=== PATIENT | male | born 1940 | race Caucasian/White ===

== ENCOUNTER 2024-11-15 11:58 | Inpatient (IN) | payer MEDICARE, SELFPAY ==
[2024-11-15] VITALS (7 sets, daily range): BP systolic 120–148; BP diastolic 67–88; PULSE 56–85; RESP 16–18; TEMP 36.7–39.1; O2SAT 96–100; BMI 27.3
--- NOTE | 2024-11-15 12:14 | EDS_ITS ---
HPI <JOLIE Ibarra - Last Filed: 11/15/24 14:51> History of Present Illness Chief Complaint: Weakness Narrative Narrative: 84-year-old male with past medical history of hypertension presents with generalized weakness. He lives alone in an apartment. Normally he has a home health aide but she has been gone for several days. He states on November 12 [address] to do errands and after getting out of his car he was standing with his cane and was too weak to walk and fell scraping his left elbow. No head injury. He called EMS for lift assist into his apartment. He has not been able to get around since then. He had chicken soup yesterday morning and nothing since then. He states normally he walks with a cane and holds onto things. He denies fever, chills, chest pain, shortness of breath, cough, vomiting or diarrhea. He had ordered a life alert type device and states he put it together and used it to call EMS today to bring him in. PFSH <JOLIE Ibarra - Last Filed: 11/15/24 14:51> [facility] Medical History (Updated 11/15/24 @ 14:[address] Shannan Patterson MD) HTN (hypertension) Allergy/AdvReac Type Severity Reaction Status Date / Time Opioids - Morphine Analogues Allergy Intermediate Other Verified 11/15/24 12:14 Surgical History (Updated 11/15/24 @ 12:16 by Rosemarie James) History of tonsillectomy H/O bilateral hip replacements Social History Smoking Status: Former smoker ROS <JOLIE Ibarra - Last Filed: 11/15/24 14:51> ROS ED ROS Narrative Constitutional: Negative for fever, chills, malaise. CVS: Negative forchest pain, syncope. Respiratory: Negative for shortness of breath, cough. GI: Negative for abdominal pain, nausea, vomiting, diarrhea. Neuro: Negative for headache. EXAM <JOLIE Ibarra - Last Filed: 11/15/24 14:51> Physical Exam Narrative Exam Narrative: CONST: Patient sitting in no acute distress. EYES: Normal inspection. ENT: Normal inspection, slightly dry mucous membranes. NECK: Normal inspection. RESP: No respiratory distress, CTAB. CVS: Systolic ejection murmur, regular rhythm. ABD: Soft and nontender, no guarding or rebound, nondistended. SKIN: Color normal, no rash, warm, dry, intact. EXTREMITIES: Normal appearance, no pedal edema. NEURO: Alert and answering questions appropriately. PSYCH: Normal affect. Const Vital Signs: 11/15/24 12:06 11/15/24 13:09 11/15/24 13:14 Temperature 99.9 F H 98.4 F Temperature Source Temporal Oral Pulse Rate 69 Respiratory Rate 16 Respiratory Pattern Normal Blood Pressure 148/67 H Blood Pressure Mean 94 Pulse Ox 100 Oxygen Delivery Method Room Air <Dr. Chetan Mata MD - Last Filed: 11/15/24 19:07> Physical Exam Const Vital Signs: 11/15/24 12:06 11/15/24 13:09 11/15/24 13:14 Temperature 99.9 F H 98.4 F Temperature Source Temporal Oral Pulse Rate 69 Respiratory Rate 16 Respiratory Pattern Normal Blood Pressure 148/67 H Blood Pressure Mean 94 Pulse Ox 100 Oxygen Delivery Method Room Air MDM <JOLIE Ibarra - Last Filed: 11/15/24 14:51> [facility] MDM Narrative Medical decision making narrative: 84 old male presents with generalized weakness. His home health aide has not been around for few days and he has been unable to get out of bed and has had decreased p.o. intake. He appears well and nontoxic. Vital stable. CONSTANTIN temporal thermometer read 99.9 but oral temp is normal at 98.4 ?F. He has dry mucous membranes with an otherwise unremarkable exam. WBC is 10.5. Hemoglobin slightly low at 12.5 with no prior for comparison. Sodium is 126. Potassium 4.4. BUN 20, creatinine 0.79. Patient's home health aide arrived and states his urine looks dark. Urinalysis is negative for infection but does have proteinuria. Patient is too weak to go home and has failure to thrive. I discussed the case with the hospitalist for admission. History & Record Review Discussion w/independent historian: Patient and Friend Lab Data Attestation: I reviewed the patient's lab results. Labs: Laboratory Results - last 24 hr 11/15/24 11/15/24 12:33 13:42 WBC 10.5 RBC 4.30 L Hgb 12.5 L Hct 38.3 L MCV 89.1 MCH 29.1 MCHC 32.6 RDW Std Deviation 48.0 H RDW Coeff of Bud 14.8 H Plt Count 237 MPV 9.5 Immature Gran % (Auto) 1.300 H Neut % (Auto) 78.3 H Lymph % (Auto) 6.4 L Geary % (Auto) 13.6 H Eos % (Auto) 0.2 Baso % (Auto) 0.2 Absolute Neuts (auto) 8.2 H Absolute Lymphs (auto) 0.67 L Nucleated RBC % 0 Sodium 126 L Potassium 4.4 Chloride 92 L Carbon Dioxide 21.0 Anion Gap 13 BUN 20 H Creatinine 0.79 Est GFR (MDRD) Non-Af 87 BUN/Creatinine Ratio 25.5 H Glucose 86 Calcium 8.9 TSH 0.479 Cortisol PM Sample 20.80 H Urine Color Yellow Urine Clarity Clear Urine pH 7.0 Ur Specific [place] 1.010 Urine Protein 30 H Urine Glucose (UA) Normal Urine Ketones Negative Urine Occult Blood 10 H Urine Nitrite Negative Urine Bilirubin Negative Urine Urobilinogen 4 H Ur Leukocyte Esterase 25 H Urine RBC 0 SEEN Urine WBC 0 SEEN Ur Squamous Epith Cells 0 SEEN Urine Bacteria 0 SEEN Urine Mucus 0 SEEN Urine Osmolality 670 Ur Random Sodium 67 Urine Chloride < 20 <Dr. Chetan Mata MD - Last Filed: 11/15/24 19:07> MDM MDM Narrative Medical decision making narrative: 84 old male presents with generalized weakness. His home health aide has not been around for few days and he has been unable to get out of bed and has had decreased p.o. intake. He appears well and nontoxic. Vital stable. CONSTANTIN temporal thermometer read 99.9 but oral temp is normal at 98.4 ?F. He has dry m ucous membranes with an otherwise unremarkable exam. WBC is 10.5. Hemoglobin slightly low at 12.5 with no prior for comparison. Sodium is 126. Potassium 4.4. BUN 20, creatinine 0.79. Patient's home health aide arrived and states his urine looks dark. Urinalysis is negative for infection but does have proteinuria. Patient is too weak to go home and has failure to thrive. I discussed the case with the hospitalist for admission. I have personally performed a face to face assessment of the patient and have reviewed the JESSICA Note. I performed a substantive portion of the visit including all aspects of the following. My love findings include: History is limited because patient refused to talk to me. He informing that he had talked to 3 other people and he was not going to talk to anyone else. He informed that I would need to talk to those people to obtain his history. There was a woman in there who is his manager medicare. She apparently left town for the holiday and he did not have any 1 help him. He apparently fell this past November 12. He denied head trauma. He denies headache. He complains of generalized weakness and worse low back pain. He told me he has not had any to eat in 24 hours. He then stated he had chicken soup. Patient is not a reliable informant. Patient very short and agitated because I have to ask him questions they were already asked. He denies double vision, blurred vision or loss of vision. He denies trouble with his speech or swallowing. He denies chest pain, pressure, tightness or heaviness. He denies shortness of breath. He denies abdominal pain. He denies nausea, vomit or diarrhea. He denies constipation. He denies loss of bowel control. He denies inability to urinate. He denies pain radiating down his right or left leg. Patient states he is normally pale in appearance. He is not on any diuretic. Exam is remarkable for an uncooperative patient. HEENT reveals no evidence of trauma. There is no clinical signs of basilar skull fracture. He does wear hearing aids. Uvula is midline. No deviation with protrusion. There is no posterior midline neck or thoracic pain. There is no pain the patient over the pubic symphysis, right or left iliac wing or right or left ischial tuberosity. He has no pain ovation over the right or left greater trochanteric region. There is no shortening of his legs. Patient demanded I bend his right and left knee at 45 degrees otherwise he would not talk to me any longer. Patient has thickened toenails and stigmata of peripheral arterial disease. He had negative Babinski sign right and left. He has no clonus. He is awake and oriented. He moves all his extremities. Medical Decision Making need to evaluate for infectious cause, metabolic cause of his generalized weakness. The hospitalist informing that he is not moving his left leg. I informed her I did not examine specifically his quadricep muscles. He was reexamined. He has a negative straight leg test right and left. Patella reflexes 1+ bilaterally. Ankle reflexes absent bilaterally. Again he has no clonus or Babinski. EHLs intact bilaterally. Other additions or changes: In light of this new information need to evaluate for stroke. CT of the head was obtained. He will be admitted to PCU. This was probably the cause of his fall. Lab Data Labs: Laboratory Results - last 24 hr 11/15/24 11/15/24 12:33 13:42 WBC 10.5 RBC 4.30 L Hgb 12.5 L Hct 38.3 L MCV 89.1 MCH 29.1 MCHC 32.6 RDW Std Deviation 48.0 H RDW Coeff of Bud 14.8 H Plt Count 237 MPV 9.5 Immature Gran % (Auto) 1.300 H Neut % (Auto) 78.3 H Lymph % (Auto) 6.4 L [place] % (Auto) 13.6 H Eos % (Auto) 0.2 Baso % (Auto) 0.2 Absolute Neuts (auto) 8.2 H Absolute Lymphs (auto) 0.67 L Nucleated RBC % 0 Sodium 126 L Potassium 4.4 Chloride 92 L Carbon Dioxide 21.0 Anion Gap 13 BUN 20 H Creatinine 0.79 Est GFR (MDRD) Non-Af 87 BUN/Creatinine Ratio 25.5 H Glucose 86 Calcium 8.9 TSH 0.479 Cortisol PM Sample 20.80 H Urine Color Yellow Urine Clarity Clear Urine pH 7.0 Ur Specific [place] 1.010 Urine Protein 30 H Urine Glucose (UA) Normal Urine Ketones Negative Urine Occult Blood 10 H Urine Nitrite Negative Urine Bilirubin Negative Urine Urobilinogen 4 H Ur Leukocyte Esterase 25 H Urine RBC 0 SEEN Urine WBC 0 SEEN Ur Squamous Epith Cells 0 SEEN Urine Bacteria 0 SEEN Urine Mucus 0 SEEN Urine Osmolality 670 Ur Random Sodium 67 Urine Chloride < 20 Discharge Plan Dx/Rx/DC Orders Clinical Impression: Generalized weakness, Acute hyponatremia, Weakness of left lower extremity, Anemia, Acute prerenal azotemia, Elevated blood-pressure reading without diagnosis of hypertension, Hematuria with proteinuria Disposition Disposition: [facility] Discharge Date/Time: 11/15/24 15:05
[2024-11-15] MEDS: 0.9% Normal Saline (1000mL) 1,000 ML 999 ML IV (12:34)
[2024-11-15 12:48] LABS: Hematocrit 38.3 % (40-54); Hemoglobin 12.5 g/dL (13.0-16.5); Immature Granulocytes Count 0.140 X10^3/uL (0.0-0.0); Mean Corp Hgb Conc 32.6 g/dL (32-36); Mean Corpuscular Volume 89.1 fL (80-94); Mean Platelet Vol. 9.5 fl (6.2-12.0); NRBC Flagged by Analyzer 0 % (0-5); Platelet Count 237 K/mm3 (150-450); RBC Distribution Width CV 14.8 % (11.6-14.6); RBC Distribution Width SD 48.0 fl (35.1-43.9); Red Blood Count 4.30 M/mm3 (4.6-6.2); White Blood Count 10.5 K/mm3 (4.4-11.0)
[2024-11-15 13:21] LABS: Anion Gap 13 (5-15); BUN 20 mg/dL (4-19); BUN/Creat Ratio 25.5 RATIO (10-20); Calcium,Total 8.9 mg/dL (7.6-11.0); Carbon Dioxide 21.0 mmol/L (21.0-32.0); Chloride 92 mmol/L (98-108); Glucose 86 mg/dL (70-99); Potassium 4.4 mmol/L (3.3-5.1)
[2024-11-15 13:48] LABS: Mucous, Urine 0 SEEN /hpf (<or=2+); Red Blood Cells-Urine 0 SEEN /hpf (0-5); Squamous Epithelial Cells - UA 0 SEEN /hpf (0-5)
[2024-11-15 13:51] LABS: Color, Urine Yellow (Yellow); Glucose, Dipstick Normal (Normal); Ketone-Dipstick Negative (Negative); Leukocyte Esterase-Dipstick 25 /ul (Negative); Nitrite-Dipstick Negative (Negative); Occult Blood-Urine 10 /ul (Negative); Protein-Dipstick 30 mg/dl (Negative); Specific Gravity, Urine 1.010 (1.002-1.030); Urine Bilirubin Dipstick Negative (Negative)
--- NOTE | 2024-11-15 14:41 | PCM.HP.STD ---
HPI - General General Date of Admission: 11/15/24 Date of Service: 11/15/24 Chief Complaint: Right leg weakness HPI Narrative PHILLY JOEL, is a 84M with a history of hypertension and left femur break last March requiring surgery at presented [facility] ED 11/15/2024 with weakness. In the ED temp initially appear to be 99.9 but oral temp was corrected to 98.4, pulse rate 69 with blood pressure 148/67, respiratory rate 16 pulse ox 100% on room air. Patient with normal white blood cell count with a hemoglobin of 12.5 with no previous baseline. BMP with a BUN of 20 and creatinine 0.97 and he was found to have a sodium of 126 with no previous baseline, UA negative for infection. Patient given IV fluids and due to his significant difficulty getting around hospitalist contacted for admission. Patient evaluated bedside. He reports that last he had been out in the heat and he been trying to work out when he suddenly had increased right lower extremity weakness after which he had a fall. At that time he called EMS and they came and got him in his house and recommended going to the ED but he refused. He does report he has chronic left lower extremity weakness but that his right lower extremity used to be his strong extremity until , this is not improved since that time. Does report some back pain though he does have chronic L4-5 pain per patient maybe has been a little bit worse however the weakness he did say began before the fall and not the other way around. He said since then he has not really been able to get around so he has not been eating or drinking well and now feels a little bit weak overall. Does get pain into his hips and reports he gets some chronic numbness and tingling in his legs but that that is not new when he thinks he might just need more B12. He reports he has been having some headaches, denies changes in vision, has a chronic phlegmy cough that has not necessarily changed, no chest pain or shortness of breath, denies any focal weakness in any other extremities. Of note patient reports he takes multiple supplements and has been into naturopathic medicine for 40 years and instead of taking an aspirin he takes some kind of tree bark capsule. After discussing with the patient and clarifying he was reporting focal weakness (he had previously alluded to generalized weakness which was what he was initially going to be admitted for) discussed with ED physician there is concern that he could have had a stroke, CT head ordered in the ED and patient will be admitted to PCU as a stroke rule out [facility] Medical History (Updated 11/15/24 @ 14:[address] Shannan Patterson MD) HTN (hypertension) Allergy/AdvReac Type Severity Reaction Status Date / Time Opioids - Morphine Analogues Allergy Intermediate Other Verified 11/15/24 12:14 Surgical History (Updated 11/15/24 @ 12:16 by Rosemarie James) H/O bilateral hip replacements History of tonsillectomy Social History Smoking Status: Former smoker ROS ROS Narrative General: Denies fever/chills HENT: Has been having some headaches, denies stuffy nose, denies sore throat EYES: Denies changes in vision Resp: Chronic phlegmy cough, denies shortness of breath Cardiac: Denies chest pain GI: Denies abdominal pain, denies changes in bowel, denies nausea/vomiting : Denies changes in urination Extremity: Reports some weakness in both legs but notes left leg is weak at baseline and right leg is weak compared to his previous baseline MSK: Weakness as above, does have some low back pain Neuro: Intermittent chronic numbness and tingling in legs, pain does not shoot down to legs Heme: Has some bruises Skin: Denies rashes Psychiatric: No complaints voiced Vital Signs Vital Signs Vital Signs: 11/15/24 12:06 11/15/24 13:09 11/15/24 13:14 Temperature 99.9 F H 98.4 F Temperature Source Temporal Oral Pulse Rate 69 Respiratory Rate 16 Respiratory Pattern Normal Blood Pressure 148/67 H Blood Pressure Mean 94 Pulse Ox 100 Oxygen Delivery Method Room Air Physical Exam Narrative General: Alert, oriented, no apparent distress HEENT: Atraumatic, normocephalic, seems to be hard of hearing Eyes: Anicteric, normal conjunctiva, extraocular movements grossly intact Neck: Supple Respiratory: Clear to auscultation bilaterally, normal respiratory effort Cardiovascular: Regular rate and rhythm GI: Soft, nontender, nondistended Extremities: Seems to have some trace lower extremity edema Musculoskeletal: Moving both upper extremities, has difficulty moving either lower extremity off the bed but is slightly better able to with the right than left hand when legs are lifted up he is not able to hold the left up at all but is able to hold the right up Neuro: Patient without sustained clonus in ankles, has bilateral patellar reflexes right greater than left Skin: Overall cooperative Psych: Cooperative Results Lab / Micro Data 11/15/24 12:33 11/15/24 12:33 Labs: Laboratory Results - last 24 hr 11/15/24 12:33: WBC 10.5, RBC 4.30 L, Hgb 12.5 L, Hct 38.3 L, MCV 89.1, MCH 29.1, MCHC 32.6, RDW Std Deviation 48.0 H, RDW Coeff of Bud 14.8 H, Plt Count 237, MPV 9.5, Immature Gran % (Auto) 1.300 H, Neut % (Auto) 78.3 H, Lymph % (Auto) 6.4 L, [place] % (Auto) 13.6 H, Eos % (Auto) 0.2, Baso % (Auto) 0.2, Absolute Neuts (auto) 8.2 H, Absolute Lymphs (auto) 0.67 L, Nucleated RBC % 0, Sodium 126 L, Potassium 4.4, Chloride 92 L, Carbon Dioxide 21.0, Anion Gap 13, BUN 20 H, Creatinine 0.79, Est GFR (MDRD) Non-Af 87, BUN/Creatinine Ratio 25.5 H, Glucose 86, Calcium 8.9 11/15/24 13:42: Urine Color Yellow, Urine Clarity Clear, Urine pH 7.0, Ur Specific [place] 1.010, Urine Protein 30 H, Urine Glucose (UA) Normal, Urine Ketones Negative, Urine Occult Blood 10 H, Urine Nitrite Negative, Urine Bilirubin Negative, Urine Urobilinogen 4 H, Ur Leukocyte Esterase 25 H, Urine RBC 0 SEEN, Urine WBC 0 SEEN, Ur Squamous Epith Cells 0 SEEN, Urine Bacteria 0 SEEN, Urine Mucus 0 SEEN Assessment & Plan Assessment/Plan (1) Weakness of lower extremity: PLAN: Plan # Lower extremity weakness -Patient reports he has chronic weakness in his left lower extremity and that his right lower extremity previously was strong but now relatively is weak compared to previous and this started suddenly on after which she had a fall. On exam patient has much more significant weakness in the left lower extremity compared to right lower extremity -Admit to tele -CT head ordered in ED -MRI ordered along with MRA head and neck once patient refuses any scan requiring contrast -NIH q4hr -asa, statin if patient agreeable to taking -Echo -PT/OT/Speech eval -Teleneuro consult ordered #hyponatremia of unclear chronicity -Sodium 126 with no previous baseline available in our system -Will check TSH, cortisol -Will check serum osmolality and urine studies -Will be given gentle IVF as patient has not been eating or drinking and seems to be somewhat volume depleted -Trend BMP - Also of note patient reports taking multiple natural supplements, unclear if this could be a cause or contributor # Documented history of hypertension -Does not appear to presently be on medications -Will trend BP, may need to add antihypertensive pending trends though unclear if patient would be agreeable # Chronic lower back pain - Patient specifically reports L4-L5 pain since that he has had some increased pain recently but denies that this was associated with any falls - Back was not tender on palpation at all and he reported actually felt good when palpating the area - Does not have symptoms radiating down legs and has no alarm symptoms - Tylenol as needed and lidocaine patch - PT/OT as above #DVT ppx: Lovenox subcu Shannan Patterson MD Charges/Coding Visit Charges Inpatient E&M: 49206 Init Hosp L2
--- OUTSIDE RECORDS SUMMARY | 2024-11-15 14:41 | XMS RPT_ITS | CCD ---
Author Organization [facility] Care Team Providers Care Information Systems Specialist Name Role Phone WEINER, KANU A Unavailable Unavailable WEINER, KANU A Unavailable Unavailable WEINER, KANU A Unavailable Unavailable WEINER, KANU A Unavailable Unavailable WEINER, KANU A Unavailable Unavailable WIENER, KANU A Unavailable Unavailable Viky Fong Primary Care Provider [phone] Viky Fong MD Primary Care Provider [phone] Hadley Fallon MD Primary Care Provider [phone] Dalton Graham MD Primary Care Provider Hadley Fallon MD Primary Care Provider Hadley Fallon MD Primary Care Provider Hadley Fallon Primary Care Provider Hadley Fallon MD Primary Care Provider HADLEY FALLON Primary Care Unavailable DALTON GRAHAM Primary Care Unavailable Hadley Fallon MD Primary Care Provider DEZ HOOVER Referring Unavailable GENERIC PROVIDER, NO ASSIGNED PCP Primary Care Unavailable YURI STEVENS Admitting Unavailable SANNA BLACK Attending Unavailable JADEN GONZALEZ Referring Unavailable GENERIC PROVIDER, NO ASSIGNED PCP Primary Care Unavailable HARINI MENDEZ Referring Unavailable BRAGG, MICHELLE A Attending Unavailable GENERIC PROVIDER, NO ASSIGNED PCP Primary Care Unavailable BRAGG, MICHELLE A Referring Unavailable GENERIC PROVIDER, NO ASSIGNED PCP Primary Care Unavailable BRAGG, MICHELLE A Referring Unavailable GENERIC PROVIDER, NO ASSIGNED PCP Primary Care Unavailable Generic Provider MD, No Assigned Pcp Primary Car e Provider Unavailable JOEY ROBISON Attending Unavail able GENERIC PROVIDER, NO ASSIGNED PCP Primary Care Unavailable Generic Provider MD, No Assigned Pcp Primary Car e Provider Unavailable MICHELLE BRAGG Referring Unavailable GENERIC PROVIDER, NO ASSIGNED PCP Primary Care Unavailable MICHELLE BRAGG Referring Unavailable GENERIC PROVIDER, NO ASSIGNED PCP Primary Care Unavailable Unavailable Primary Care Provider Unavailabl e Allergies Allergy Classification Reported Allergen(s) Allergy Type Date of Onset Reaction(s) Facility Opioid Agonists (2 sources) Morphine Drug Allergy 0 [facility] (20 sources) morphine; Translations: [MORPHINE] Drug Allergy 3 Itching, Other: See Comments, Anaphylaxis, Rash [facility] Other [facility] (10 sources) Codeine; Translations: [CODEINE] Drug Allergy 4 Anaphylaxis [facility] Medications Current Medications Medication Drug Class(es) Dates Sig (Normalized) Sig (Original) acetaminophen 325 mg oral tablet (7 sources) Start: 02-04-2024 take 3 tablets by mouth every eight hours acetaminophen (Tylenol) 325 mg tablet Indications: Closed fracture of left femur, unspecified fracture morphology, unspecified portion of femur, initial encounter Take 3 tablets (975 mg) by mouth every 8 hours. 02/04/2024 Active Start: 01-28-2024 take 975 mg by mouth every eight hours as needed for pain 975 mg, oral, Every 8 hours scheduled, First dose (after last modification) on Sat01/28/24 at 2200, If ordered PRN for pain, nurse is permitted to administer this medication for higher pain scores based on patient preference? Yes Start: 01-28-2024 End: 01-28-2024 take 975 mg by mouth every six hours as needed for pain 975 mg, oral, Every 6 hours scheduled, First dose on Sat01/28/24 at 0000, If ordered PRN for pain, nurse is permitted to administer this medication for higher pain scores based on patient preference? Yes amLODIPine 10 mg oral tablet (7 sources) Dihydropyridine Calcium Channel William Start: 10-26-2022 End: 11-22-2023 take 1 tablet by mouth once daily amLODIPine (Norvasc) 10 MG tablet Indications: Primary hypertension Take 1 tablet (10 mg) by mouth daily. 90 tablet 3 11/22/2022 Active amoxicillin 500 mg oral capsule (1 source) Penicillin-class Antibacterial Start: 09-01-2020 End: 09-08-2020 take 1 capsule by mouth three times daily amoxicillin (AMOXIL) 500 MG capsule Take 1 capsule by mouth 3 times daily for 7 days 21 capsule 0 09/01/2020 09/08/2020 Active bisacodyl 10 mg rectal suppository (6 sources) Stimulant Laxative Start: 02-01-2024 bisacodyl (Dulcolax) 10 mg suppository Indications: Closed fracture of left femur, unspecified fracture morphology, unspecified portion of femur, initial encounter Insert 1 suppository (10 mg) into the rectum once daily. 02/05/2024 Active calcium carbonate 500 mg chewable tablet (6 sources) Start: 02-04-2024 calcium carbonate (Tums) 200 mg calcium chewable tablet Indications: Closed fracture of left femur, unspecified fracture morphology, unspecified portion of femur, initial encounter Chew 1 tablet (500 mg) 4 times a day as needed for indigestion or heartburn. 02/04/2024 Active Start: 01-28-2024 take 500 mg by mouth four times daily as needed for gastroesophageal reflux disease 500 mg, oral, 4 times daily PRN, indigestion, heartburn, Starting on Sat01/28/24 at 0101 calcium carbonate 1250 mg / cholecalciferol 0.01 mg oral tablet (5 sources) Vitamin D Start: 01-28-2024 End: 01-27-2025 take 1 tablet by mouth twice daily calcium carbonate-vitamin D3 (Oscal-500) 500 mg-10 mcg (400 unit) tablet Indications: Closed fracture of left femur, unspecified fracture morphology, unspecified portion of femur, initial encounter Take 1 tablet by mouth 2 times a day. 60 tablet 11 01/28/2024 01/27/2025 Active cephalexin 500 mg oral capsule (1 source) Cephalosporin Antibacterial Start: 02-19-2023 End: 02-24-2023 take 1 capsule by mouth four times daily cephALEXin (KEFLEX) 500 mg capsule Indications: Puncture wound of left index finger , Localized erythema Take 1 capsule by mouth four times daily for 5 days. 20 capsule 0 02/19/2023 02/24/2023 Active Comment on above: Take 1 capsule by [facility] four times daily for 5 days. cholecalciferol, vitamin D3, (VITAMIN D3 ORAL) (2 sources) cholecalciferol, vitamin D3, (VITAMIN D3 ORAL) Take by mouth. Active cholecalciferol, vitamin D3, (VITAMIN D3 ORAL) Take by mouth. 0 Active Comment on above: Take by mouth. Echinacea purpurea,angustif xt (ECHINACEA PURP XT,HUMZA RT EXT) 125 mg cap (3 sources) Echinacea purpur ea,angustif xt (ECHINACEA PURP XT,HUMZA RT EXT) 125 mg cap echinacea 125 mg capsule Active Echinacea purpur ea,angustif xt (ECHINACEA PURP XT,HUMZA RT EXT) 125 mg cap echinacea 125 mg capsule 0 Active Comment on above: echinacea 125 mg cap gladys econazole nitrate 10 mg/ml topical cream (12 sources) Azole Antifungal Start: 08-16-19 econazole nitrate 1 % cream Indications: Pain due to onychomycosis of toenails of both feet Apply 2 times daily to fungal toenail(s). 30 g 1 08/15/2022 Active 0.3 ml enoxaparin sodium 100 mg/ml prefilled syringe (6 sources) Low Molecular Weight Heparin Start: 02-04-20 inject 0.3 mL by subcutaneous injection every twelve hours enoxaparin (Lovenox) 30 mg/0.3 mL syringe Indications: Closed fracture of left femur, unspecified fracture morphology, unspecified portion of femur, initial encounter Inject 0.3 mL (30 mg) under the skin every 12 hours. 02/04/2024 Active Start: 01-27-2024 inject 30 mg by subc utaneous injection every twelve hours 30 mg, subcutaneous, Every 12 hours, First dose on Sat01/27/24 at 2300 12 hr guaiFENesin 600 mg extended release oral tablet (6 sources) Start: 02-01-2024 take 1 tablet by mouth twice daily as needed for cough guaiFENesin (Mucinex) 600 mg 12 hr tablet Indications: Closed fracture of left femur, unspecified fracture morphology, unspecified portion of femur, initial encounter Take 1 tablet (600 mg) by mouth 2 times a day as needed for cough. Do not crush, chew, or split. 02/04/2024 Active Magnesium (15 sources) MAGNESIUM PO Prasad e by mouth. Active MAGNESIUM PO Prasad e by mouth. 0 Active magnesium hydroxide 80 mg/ml oral suspension (6 sources) Start: 02-03-2024 take 30 mL by mouth once daily magnesium hydroxide (Milk of Magnesia) 400 mg/5 mL suspension Indications: Closed fracture of left femur, unspecified fracture morphology, unspecified portion of femur, initial encounter Take 30 mL by mouth once daily. 360 mL 02/05/2024 Active Magnesium Oxide (1 source) MAGNESIUM-OXIDE PO Take by mouth 0 Active 24 hr metoprolol succinate 100 mg extended release oral tablet (2 sources) beta-Adrenergic William metoprolol succinate ER (TOPROL XL) 100 mg Take by mouth. Active Comment on above: Take by mouth. multivit-min/ferrou s fumarate (MULTI VITAMIN ORAL) (2 sources) multivit-min/tono fitz fumarate (MULTI VITAMIN ORAL) Take by mouth. Pt takes vitamins through a smoothie, Active multivit-min/tono fitz fumarate (MULTI VITAMIN ORAL) Take by mouth. Pt takes vitamins through a smoothie, 0 Active Comment on above: Take by mouth. Pt ta kes vitamins through a smoothie, naproxen sodium 220 mg oral tablet (2 sources) Nonsteroidal Anti-inflammatory Drug take 1 tablet by mouth twice daily at mealtime naproxen sodium (ALEVE) 220 MG tablet Take 220 mg by mouth 2 times daily (with meals) 0 Active Nutritional Supplements (NUTRITIONAL SUPPLEMENT PO) (1 source) Nutritional Supplements (NUTRITIONAL SUPPLEMENT PO) melaluca nutritional supplement-vitamin d3, k2, b complex 0 Active 2 ml ondansetron 2 mg/ml injection (7 sources) Serotonin-3 Receptor Antagonist Start: ondansetron (Zofran) 4 mg/2 mL injection Indications: Closed fracture of left femur, unspecified fracture morphology, unspecified portion of femur, initial encounter Infuse 2 mL (4 mg) into a venous catheter every 4 hours if needed for nausea or vomiting. 02/04/2024 Active Start: 01-28-2024 take 4 mg intravenou sly every four hours as needed 4 mg, intravenous, Every 4 hours PRN, nausea/vomiting, first line, Starting on Sat01/28/24 at 0339, When administering via IV Push, administer over 3-5 minutes. Start: 01-27-2024 End: 01-27-2024 take 4 mg by mouth once 4 mg, oral, Once, On 01/11 at 1105, For 1 dose polyethylene glycol 3350 08800 mg powder for oral solution (7 sources) Osmotic Laxative Start: 01-31-2024 polyethylene glycol (Glycolax, Miralax) 17 gram packet Indications: Closed fracture of left femur, unspecified fracture morphology, unspecified portion of femur, initial encounter Take 17 g by mouth 2 times a day. 02/04/2024 Active Start: 01-28-2024 End: 01-31-2024 17 g, oral, Daily, First dos e on Sat01/28/24 at 0900, Bowel Regimen - for prevention of constipation. pyridoxine (1 source) Pyridoxine HCl (VITAMIN B6 PO) Take by mouth 0 Active sennosides, snf 8.6 mg oral tablet (6 sources) Start: 01-28-2024 take 1 tablet by mouth twice daily sennosides (Senokot) 8.6 mg tablet Indications: Closed fracture of left femur, unspecified fracture morphology, unspecified portion of femur, initial encounter Take 1 tablet (8.6 mg) by mouth 2 times a day. 02/04/2024 Active traMADol hydrochloride 50 mg oral tablet (1 source) Opioid Agonist Start: 01-30-2020 End: 02-02-2020 take 1 tablet by mouth every four hours as needed for pain, then take 1 tablet by mouth as needed for pain traMADol (ULTRAM) 50 MG tablet Indications: Closed fracture of right foot, initial encounter Take 1 tablet by mouth every 4 hours as needed for Pain for up to 3 days. Intended supply: 3 days. Take lowest dose possible to manage pain 18 tablet 0 01/30/2020 02/02/2020 Active UNABLE TO FIND (15 sources) UNABLE TO FIND M ed Name: nitric oxide support Active UNABLE TO FIND M ed Name: nitric oxide support 0 Active vitamin b12 0.25 mg oral tab let (4 sources) Vitamin B12 Cyanocobalamin 2 50 mcg tab Vitamin B-12 25 mcg tablet Active vitamin B-12 (CY ANOCOBALAMIN) 1000 MCG tablet Take by mouth 0 Active Comment on above: Vitamin B-12 25 mcg tablet Vitamin E Acetate, Bulk, 50 % powd (3 sources) Vitamin E Acetat e, Bulk, 50 % powd Take by mouth. Active Vitamin E Acetat e, Bulk, 50 % powd Take by mouth. 0 Active Comment on above: Take by mouth. VITAMIN E PO (1 source) VITAMIN E PO Prasad e by mouth 0 Active Zinc (2 sources) ZINC ORAL Take b y mouth. Active ZINC ORAL Take b y mouth. 0 Active Comment on above: Take by mouth. Completed/Discontinued Medications Medication Drug Class(es) Dates Sig (Normalized) Sig (Original) acetaminophen 325 mg / oxyCODONE hydrochloride 5 mg oral tablet (1 source) Opioid Agonist Start: 01-27-2024 End: 01-27-2024 take 1 tablet by mouth once as needed for pain 1 tablet, oral, Once, On Sat01/27/24 at 1105, For 1 dose, If ordered PRN for pain, nurse is permitted to administer this medication for higher pain scores based on patient preference? Yes aspirin 81 mg delayed release oral tablet (6 sources) Platelet Aggregation Inhibitor, Nonsteroidal Anti-inflammatory Drug Start: 12-30-2018 End: 01-02-2024 aspirin, enteric coated (ASPIRIN, ENTERIC COATED) 81 mg EC tablet Take by mouth. 0 12/30/2018 Active Comment on above: aspirin 81 mg tablet Take by mouth. calcium chloride 0.0014 meq/ml / potassium chloride 0.004 meq/ml / sodium chloride 0.103 meq/ml / sodium lactate 0.028 meq/ml injectable solution (2 sources) Start: 01-27-2024 End: 01-28-2024 take 100 mL intravenously every hour 100 mL/hr, intravenous, Continuous, Starting on Sat01/28/24 at 1100, Recovery (only) ceFAZolin 2000 mg injection (1 source) Cephalosporin Antibacterial Start: 01-28-2024 End: 01-28-2024 take 2 g intravenously every eight hours 2 g, intravenous, Administer over 30 Minutes, Every 8 hours, First dose on Sat01/28/24 at 1530, For 2 doses, premix bag, Dosing of this medication varies based on severity of illness. Does this patient have sepsis or concern for sepsis (probable or documented infection plus systemic manifestations of infection)? No, Suspected Indication (Select all that apply): Surgical Prophylaxis, Indications: Surgical Prophylaxis 1 ml fentaNYL 0.05 mg/ml injection (1 source) Opioid Agonist Start: 01-27-2024 End: 01-27-2024 50 mcg, intravenous, Once, On Sat01/27/24 at 1715, For 1 dose 1 ml HYDROmorphone hydrochloride 1 mg/ml cartridge (3 sources) Opioid Agonist Start: 01-28-2024 End: 01-29-2024 0.4 mg, intravenous, Every 3 hours PRN, pain severe (7-10), first line, Starting on Sat01/28/24 at 1517 Start: 01-28-2024 End: 01-29-2024 0.2 mg, intravenous, Every 3 hours PRN, pain moderate (4-6), first line, Starting on Sat01/28/24 at 1517 Start: 01-28-2024 End: 01-28-2024 0.5 mg, intravenous, Every 5 min PRN, pain severe (7-10), first line, Starting on Sat01/28/24 at 1030, Recovery (only), Max total of 4 mg regardless of dose. ibuprofen 600 mg oral tablet (1 source) Nonsteroidal Anti-inflammatory Drug Start: 01-29-2024 End: 01-31-2024 take 600 mg by mouth every eight hours as needed for pain 600 mg, oral, Every 8 hours scheduled, First dose on Sat01/29/24 at 1400, If ordered PRN for pain, nurse is permitted to administer this medication for higher pain scores based on patient preference? Yes iohexol (OMNIPaque) 350 mg iodine/mL solution 75 mL (1 source) Start: 01-27-2024 End: 01-27-2024 75 mL, intravenous, Once in imaging, Starting on Sat01/27/24 at 2322, For 1 dose 1 ml ketorolac tromethamine 15 mg/ml injection (1 source) Nonsteroidal Anti-inflammatory Drug, Cyclooxygenase Inhibitor Start: 01-29-2024 End: 01-29-2024 take 15 mg intravenously every six hours 15 mg, intravenous, Every 6 hours, First dose on Sat01/29/24 at 0130, For 3 days lisinopril 20 mg oral tablet (10 sources) Angiotensin Converting Enzyme Inhibitor Start: 09-05-2022 End: 09-05-2023 take 1 tablet by mouth once daily lisinopril 20 MG tablet Indications: Primary hypertension Take 1 tablet (20 mg) by mouth daily. 90 tablet 3 09/05/2022 10/26/2022 Discontinued (Side effects) Start: 08-08-2022 End: 09-05-2023 lisinopril (ZESTRIL) 20 mg t ablet Take by mouth q 24 HR. 08/08/2022 Active Start: 08-08-2022 End: 08-08-2023 take 1 tablet by mouth once daily lisinopril 10 MG tablet Indications: Primary hypertension Take 1 tablet (10 mg) by mouth daily. 30 tablet 11 08/08/2022 09/05/2022 Discontinued (Reorder) Comment on above: Take by mouth q 24 H R. 10 ml methocarbamol 100 mg/ml injection (2 sources) Muscle Relaxant Start: 01-28-2024 End: 01-28-2024 1,000 mg, intravenous, Once, On Sat01/28/24 at 1100, For 1 dose, Recovery (only) Start: 01-27-2024 End: 01-31-2024 take 1 tablet by mouth every six hours as needed 500 mg, oral, Every 6 hours PRN, muscle spasms, Starting on Sat01/27/24 at 2256 oxyCODONE hydrochloride 5 mg oral tablet (1 source) Opioid Agonist Start: 01-28-2024 End: 01-28-2024 take 1 tablet by mouth every four hours as needed 5 mg, oral, Every 4 hours PRN, pain moderate (4-6), first line, Starting on Sat01/28/24 at 0100, If ordered PRN for pain, nurse is permitted to administer this medication for higher pain scores based on patient preference? 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 Essential hypertension (20 sources) Essential hypertension; Translations: [Essential (primary) hypertension] Onset: 10-27-2021 10-27-2021 Chronic Fracture of lower limb (9 sources) Unspecified fracture of left femur, initial encounter for closed fracture; Translations: [Closed fracture of left femur] Onset: 01-27-2024 Episodic Fracture of neck of femur (hip) (2 sources) Periprosthetic fracture of hip 04-16-2024 Episodic Heart valve disorders (7 sources) Heart murmur; Translations: [Cardiac murmur, unspecified] Onset: 01-28-2024 Episodic Hyperplasia of prostate (16 sources) Benign prostatic hyperplasia; Translations: [Benign prostatic hyperplasia with lower urinary tract symptoms] Onset: 10-27-2021 10-27-2021 Chronic Mycoses (1 source) Pain in toe; Translations: [Tinea unguium] Episodic Open wounds of extremities (1 source) Puncture wound of index finger of left hand; Translations: [Puncture wound without foreign body of left index finger without damage to nail, initial encounter] 02-19-2023 Episodic Other aftercare (1 source) Wound finding; Translations: [Encounter for other specified aftercare] 02-19-2023 Episodic Other circulatory disease (1 source) Elevated blood pressure; Translations: [Elevated blood-pressure reading, without diagnosis of hypertension] Episodic Other congenital anomalies (2 sources) Disorder of nail; 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] Chronic Other connective tissue disease (19 sources) History of total hip arthroplasty; Translations: [Presence of unspecified artificial hip joint] Onset: 05-16-2010 10-27-2021 Chronic Other connective tissue disease (6 sources) History of repair of hip joint; Translations: [Presence of left artificial hip joint] Onset: 12-08-2017 12-08-2017 Chronic Other connective tissue disease (6 sources) Presence of unspecified artificial hip joint; Translations: [Presence of unspecified artificial hip joint] Onset: 01-27-2024 Chronic Other ear and sense organ disorders (1 source) Impacted cerumen of bilateral ears; Translations: [Impacted cerumen, bilateral] 01-02-2024 Episodic Other inflammatory condition of skin (1 source) Erythema; Translations: [Erythematous condition, unspecified] 02-19-2023 Episodic Other injuries and conditions due to external causes (1 source) Injury of left knee; Translations: [Unspecified injury of left lower leg, initial encounter] Episodic Other nervous system disorders (1 source) Other chronic pain; Translations: [Other chronic pain] Onset: 11-14-2017 Chronic Other upper respiratory disease (1 source) Anterior epistaxis; Translations: [Epistaxis] Episodic Other upper respiratory disease (1 source) Bleeding from nose; Translations: [Epistaxis] Episodic Residual codes; unclassified (1 source) Sleep apnea; Translations: [Sleep apnea, unspecified] Chronic Unclassified (1 source) Unknown / UNK(Unknown) Onset: 11-21-2017 Unclassified (1 source) Closed fracture of right foot; Translations: [Closed fracture of right foot, initial encounter] Past or Other Problems Problem Classification Problem Date Documented Da te Episodic/Chronic Conditions associated with dizziness or vertigo (17 sources) Dizziness and giddiness; Translations: [Dizziness and giddiness] Onset: 08-05-2022 Episodic Other non-traumatic joint disorders (3 sources) Hip pain; Translations: [Pain in unspecified hip] Onset: 08-03-2010 08-03-2010 Episodic Other non-traumatic joint disorders (3 sources) Pain in unspecified knee; Translations: [Pain in joint, lower leg] Onset: 12-09-2012 12-09-2012 Episodic Other screening for suspected conditions (not mental disorders or infectious disease) (20 sources) Raised prostate specific antigen; Translations: [Elevated prostate specific antigen [PSA]] Onset: 10-27-2021 10-27-2021 Episodic Spondylosis; intervertebral disc disorders; other back problems (20 sources) Other specified dorsopathies, lumbar region; Translations: [Low back pain] Onset: 11-14-2017 10-27-2021 Episodic Results Test Name Value Interpretation Reference Range Facility XR FEMUR LEFT 2+ VIEWSon XR FEMUR LEFT 2+ VIEWS Interpreted By: Sushil Mcclellan, STUDY: XR PELVIS 1-2 VIEWS; XR FEMUR LEFT 2+ VIEWS INDICATION: Signs/Symptoms:pain. COMPARISON: February 18 ACCESSION NUMBER(S): [id number]; [id number] ORDERING CLINICIAN: MICHELLE BRAGG FINDINGS: Bilateral total hip arthroplasties are noted. Postsurgical changes status post ORIF of the left periprosthetic femoral fracture with a lateral plate. The femoral arthroplasty component normal without malalignment or new lucency. No evidence of complication. 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 Signed by: Sushil Mcclellan 04/17/2024 11:38 AM Dictation workstation: [id number] [facility] XR PELVIS 1-2 VIEWSon 2023 XR PELVIS 1-2 VIEWS Interpreted By: Sushil Harris, STUDY: XR PELVIS 1-2 VIEWS; XR FEMUR LEFT 2+ VIEWS INDICATION: Signs/Symptoms:pain. COMPARISON: February 18 ACCESSION NUMBER(S): [id number]; [id number] ORDERING CLINICIAN: MICHELLE BRAGG FINDINGS: Bilateral total hip arthroplasties are noted. Postsurgical changes status post ORIF of the left periprosthetic femoral fracture with a lateral plate. The femoral arthroplasty component normal without malalignment or new lucency. No evidence of complication. 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 Signed by: Sushil Mcclellan 04/17/2024 11:38 AM Dictation workstation: [id number] [facility] No Panel Informationon 02-19 Interpreted By: Mary White ud, STUDY: XR FEMUR LEFT 2+ VIEWS; XR PELVIS 1-2 VIEWS; 02/19/2024 3:20 pm INDICATION: Signs/Symptoms:post-op. COMPARISON: 01/27/2024 ACCESSION NUMBER(S): [id number]; [id number] ORDERING CLINICIAN: MICHELLE BRAGG FINDINGS: Status post lateral plate and screw fixation of proximal left femoral periprosthetic fracture, status post total left hip arthroplasty. Extensive atherosclerotic calcifications of the left lower leg vasculature. No evidence of hardware complication. No new fracture or dislocation. Status post total right hip arthroplasty without evidence of hardware failure. Marked lower lumbar spondylosis. IMPRESSION ORIF of periprosthetic proximal left femoral fracture. MACRO none Signed by: Mary Agustin 02/20/2024 7:44 PM Dictation workstation: [id number] Mary Gavin-Conrado Arambula MD - 02/20/2024 Interpreted By: Mary Agustin, STUDY: XR FEMUR LEFT 2+ VIEWS; XR PELVIS 1-2 VIEWS; 02/19/2024 3:20 pm INDICATION: Signs/Symptoms:post-op. COMPARISON: 01/27/2024 ACCESSION NUMBER(S): [id number]; [id number] ORDERING CLINICIAN: MICHELLE BRAGG FINDINGS: Status post lateral plate and screw fixation of proximal left femoral periprosthetic fracture, status post total left hip arthroplasty. Extensive atherosclerotic calcifications of the left lower leg vasculature. No evidence of hardware complication. No new fracture or dislocation. Status post total right hip arthroplasty without evidence of hardware failure. Marked lower lumbar spondylosis. IMPRESSION ORIF of periprosthetic proximal left femoral fracture. MACRO none Signed by: Mary Agustin 02/20/2024 7:44 PM Dictation workstation: [id number] [facility] Work Phone: No Panel InformationOrdered By: Alaina Agustin on 02-20-2024 [facility] Work Phone: No Panel Informationon 02-18 Radiology Study observation (narrative) [facility] Work Phone: XR FEMUR LEFT 2+ VIEWSon XR FEMUR LEFT 2+ VIEWS Interpreted By: Mary Agustin, STUDY: XR FEMUR LEFT 2+ VIEWS; XR PELVIS 1-2 VIEWS; 02/19/2024 3:20 pm INDICATION: Signs/Symptoms:post-op. COMPARISON: 01/27/2024 ACCESSION NUMBER(S): [id number]; [id number] ORDERING CLINICIAN: MICHELLE BRAGG FINDINGS: Status post lateral plate and screw fixation of proximal left femoral periprosthetic fracture, status post total left hip arthroplasty. Extensive atherosclerotic calcifications of the left lower leg vasculature. No evidence of hardware complication. No new fracture or dislocation. Status post total right hip arthroplasty without evidence of hardware failure. Marked lower lumbar spondylosis. IMPRESSION ORIF of periprosthetic proximal left femoral fracture. MACRO none Signed by: Mary Agustin 02/20/2024 7:44 PM Dictation workstation: [id number] [facility] XR PELVIS 1-2 VIEWSon 2023 XR PELVIS 1-2 VIEWS Interpreted By: Mary White ud, STUDY: XR FEMUR LEFT 2+ VIEWS; XR PELVIS 1-2 VIEWS; 02/19/2024 3:20 pm INDICATION: Signs/Symptoms:post-op. COMPARISON: 01/27/2024 ACCESSION NUMBER(S): [id number]; [id number] ORDERING CLINICIAN: MICHELLE BRAGG FINDINGS: Status post lateral plate and screw fixation of proximal left femoral periprosthetic fracture, status post total left hip arthroplasty. Extensive atherosclerotic calcifications of the left lower leg vasculature. No evidence of hardware complication. No new fracture or dislocation. Status post total right hip arthroplasty without evidence of hardware failure. Marked lower lumbar spondylosis. IMPRESSION ORIF of periprosthetic proximal left femoral fracture. MACRO none Signed by: Mary Agustin 02/20/2024 7:44 PM Dictation workstation: [id number] Normal [facility] Comment on above: Order Comment: WB AP pelvis CBC panel Auto (Bld)on 01-30 Erythrocyte distribution width (RBC) [Ratio] 13.0 % 11.5 - 14.5 % [facility] Hematocrit (Bld) [Volume fraction] 30.4 % Low 41.0 - 52.0 % [facility] Hemoglobin (Bld) [Mass/Vol] 9.9 g/dL Low 13.5 - 17.5 g/dL [facility] Interpretation and review of laboratory results Abnormal [facility] MCH (RBC) [Entitic mass] 29.1 pg 26.0 - 34.0 pg [facility] MCHC (RBC) [Mass/Vol] 32.6 g/dL 32.0 - 36.0 g/dL [facility] MCV (RBC) [Entitic vol] 89 fL 80 - 100 fL [facility] Nucleated RBC/100 WBC (Bld) [Ratio] 0.0 % [facility] Platelets (Bld) [#/Vol] 236 10*3/uL [facility] RBC (Bld) [#/Vol] 3.40 10*6/uL [facility] WBC (Bld) [#/Vol] 5.9 10*3/uL [facility] Erythrocyte distribution width (RBC) [Ratio] 13.0 % Normal 11.5-14.5 [facility] Comment on above: Performed By: #### V ERAB #### CARIN Webb ([id number]) [facility] ([facility]) [address] [place] [address] Hematocrit (Bld) [Volume fraction] 30.4 % Low 41.0-52.0 [facility] Comment on above: Performed By: #### Marybeth ERAB #### CARIN Webb ([id number]) [facility] ([facility]) [address] [place] [address] Hemoglobin (Bld) [Mass/Vol] 9.9 g/dL Low 13.5-17.5 [facility] Comment on above: Performed By: #### Marybeth ERAB #### CARIN Webb ([id number]) [facility] ([facility]) [address] [place] [address] MCH (RBC) [Entitic mass] 29.1 pg Normal 26.0-34.0 [facility] Comment on above: Performed By: #### Marybeth ERAB #### CARIN Webb ([id number]) [facility] ([facility]) [address] [place] [address] MCHC (RBC) [Mass/Vol] 32.6 g/dL Normal 32.0-36.0 [facility] Comment on above: Performed By: #### Marybeth ERAB #### CARIN Webb ([id number]) [facility] ([facility]) [address] [place] [address] MCV (RBC) [Entitic vol] 89 fL Normal 80-100 [facility] Comment on above: Performed By: #### Marybeth ERAB #### CARIN Webb ([id number]) [facility] ([facility]) [address] [place] [address] Nucleated RBC/100 WBC (Bld) [Ratio] 0.0 /100 WBCs Normal 0.0-0.0 [facility] Comment on above: Performed By: #### Marybeth ERAB #### CARIN Webb ([id number]) [facility] ([facility]) [address] [place] [address] Platelets (Bld) [#/Vol] 236 x10*3/uL Normal 150-450 [facility] Comment on above: Performed By: #### V ERAB #### CARIN Webb ([id number]) [facility] ([facility]) [address] [place] [address] RBC (Bld) [#/Vol] 3.40 x10*6/uL Low 4.50-5.90 [facility] Comment on above: Performed By: #### V ERAB #### CARIN Webb ([id number]) [facility] ([facility]) [address] [place] [address] WBC (Bld) [#/Vol] 5.9 x10*3/uL Normal 4.4-11.3 [facility] Comment on above: Performed By: #### V ERAB #### CARIN Webb ([id number]) [facility] ([facility]) [address] [place] [address] 25-hydroxyvitamin D3 [Mass/V ol]on 01-30-2024 Deficiency: < 20 ng /ml Insufficiency: 20-29 ng/ml Sufficiency: 30-100 ng/ml This assay accurately quantifies the sum of Vitamin D3, 25-Hydroxy and Vitamin D2,25-Hydroxy. [facility] Blood type and Indirect anti body screen panel (Bld)on 01-30-2024 ABO group Nom (Bld) A [facility] Blood group antibody screen Ql Negative [facility] D Ag Ql (Bld) Positive [facility] ABO group Nom (Bld) A Normal [facility] Comment on above: Performed By: #### V ERAB #### CARIN Webb ([id number]) [facility] ([facility]) [address] [place] [address] Blood group antibody screen Ql Negative Normal [facility] Comment on above: Performed By: #### V ERAB #### CARIN Webb ([id number]) [facility] ([facility]) [address] [place] [address] D Ag Ql (Bld) Positive Normal [facility] Comment on above: Performed By: #### V ERAB #### CARIN Webb ([id number]) [facility] ([facility]) [address] [place] [address] CBC panel Auto (Bld)on 01-29 Erythrocyte distribution width (RBC) [Ratio] 13.1 % 11.5 - 14.5 % [facility] Hematocrit (Bld) [Volume fraction] 29.9 % Low 41.0 - 52.0 % [facility] Hemoglobin (Bld) [Mass/Vol] 9.8 g/dL Low 13.5 - 17.5 g/dL [facility] Interpretation and review of laboratory results Abnormal [facility] MCH (RBC) [Entitic mass] 29.1 pg 26.0 - 34.0 pg [facility] MCHC (RBC) [Mass/Vol] 32.8 g/dL 32.0 - 36.0 g/dL [facility] MCV (RBC) [Entitic vol] 89 fL 80 - 100 fL [facility] Nucleated RBC/100 WBC (Bld) [Ratio] 0.0 % [facility] Platelets (Bld) [#/Vol] 219 10*3/uL [facility] RBC (Bld) [#/Vol] 3.37 10*6/uL Low [facility] WBC (Bld) [#/Vol] 5.7 10*3/uL [facility] Erythrocyte distribution width (RBC) [Ratio] 13.1 % Normal 11.5-14.5 [facility] Comment on above: Performed By: #### V ERAB #### CARIN Webb ([id number]) [facility] ([facility]) [address] [place] [address] Hematocrit (Bld) [Volume fraction] 29.9 % Low 41.0-52.0 [facility] Comment on above: Performed By: #### V ERAB #### CARIN Webb ([id number]) [facility] ([facility]) [address] [place] [address] Hemoglobin (Bld) [Mass/Vol] 9.8 g/dL Low 13.5-17.5 [facility] Comment on above: Performed By: #### Marybeth ERAB #### CARIN Webb ([id number]) [facility] ([facility]) [address] [place] [address] MCH (RBC) [Entitic mass] 29.1 pg Normal 26.0-34.0 [facility] Comment on above: Performed By: #### Marybeth ERAB #### CARIN Webb ([id number]) [facility] ([facility]) [address] [place] [address] MCHC (RBC) [Mass/Vol] 32.8 g/dL Normal 32.0-36.0 [facility] Comment on above: Performed By: #### Marybeth ERAB #### CARIN Webb ([id number]) [facility] ([facility]) [address] [place] [address] MCV (RBC) [Entitic vol] 89 fL Normal 80-100 [facility] Comment on above: Performed By: #### Marybeth ERAB #### CARIN Webb ([id number]) [facility] ([facility]) [address] [place] [address] Nucleated RBC/100 WBC (Bld) [Ratio] 0.0 /100 WBCs Normal 0.0-0.0 [facility] Comment on above: Performed By: #### Marybeth ERAB #### CARIN Webb ([id number]) [facility] ([facility]) [address] [place] [address] Platelets (Bld) [#/Vol] 219 x10*3/uL Normal 150-450 [facility] Comment on above: Performed By: #### Marybeth ERAB #### CARIN Webb ([id number]) [facility] ([facility]) [address] [place] [address] RBC (Bld) [#/Vol] 3.37 x10*6/uL Low 4.50-5.90 [facility] Comment on above: Performed By: #### V ERAB #### CARIN Webb ([id number]) [facility] ([facility]) [address] [place] [address] WBC (Bld) [#/Vol] 5.7 x10*3/uL Normal 4.4-11.3 [facility] Comment on above: Performed By: #### V ERAB #### CARIN Webb ([id number]) [facility] ([facility]) [address] [place] [address] Calcidiolon 01-30-2024 25-hydroxyvitamin D3 [Mass/Vol] 33 ng/mL Normal 30-100 [facility] Comment on above: Order Comment: Thi s is for confirming/verifying history of ABORh on file for transfusion of blood products. If this is not for transfusion, please order an ABO/RH [[id number]]. If you have any questions or unsure what to order, please call the blood bank. Performed By: #### V ERAB #### CARIN Webb ([id number]) [facility] ([facility]) [address] [place] [address] Cobalaminson 01-30-2024 Cobalamin (Vitamin B12) [Mass/Vol] 468 pg/mL Normal 211-911 [facility] Comment on above: Performed By: #### V ERAB #### CARIN Webb ([id number]) [facility] ([facility]) [address] [place] [address] No Panel Informationon 01-29 Interpretation and review of laboratory results Normal [facility] Renal function 2000 panelon 01-30-2024 Albumin BCP dye [Mass/Vol] 3.0 g/dL Low 3.4 - 5.0 g/dL [facility] Anion gap [Moles/Vol] 9 mmol/L Low 10 - 20 mmol/L [facility] Calcium [Mass/Vol] 8.5 mg/dL Low 8.6 - 10. 6 mg/dL [facility] Chloride [Moles/Vol] 99 mmol/L 98 - 10 7 mmol/L [facility] CO2 [Moles/Vol] 28 mmol/L 21 - 32 mmol/L [facility] Creatinine [Mass/Vol] 0.64 mg/dL 0.50 - 1.30 mg/dL [facility] eGFR - PINF [facility] Comment on above: Calculations of sebastien mated GFR are performed using the 2020 CKD-EPI Study Refit equation without the race variable for the IDMS-Traceable creatinine methods. https://jasn.asnjournals.org/content/early/ASN.2203204 988 Glucose [Mass/Vol] 94 mg/dL 74 - 99 mg/dL [facility] Interpretation and review of laboratory results Abnormal [facility] Phosphate [Mass/Vol] 2.9 mg/dL 2.5 - 4 .9 mg/dL [facility] Comment on above: The performance tripp acteristics of phosphorus testing in heparinized plasma have been validated by the individual laboratory site where testing is performed. Testing on heparinized plasma is not approved by the FDA; however, such approval is not necessary. Potassium [Moles/Vol] 4.3 mmol/L 3.5 - 5.3 mmol/L [facility] Sodium [Moles/Vol] 132 mmol/L Low 136 - 145 mmol/L [facility] Urea nitrogen [Mass/Vol] 15 mg/dL 6 - 23 mg/dL [facility] Albumin BCP dye [Mass/Vol] 3.0 g/dL Low 3.4-5.0 [facility] Comment on above: Performed By: #### V ERAB #### CARIN Webb ([id number]) [facility] ([facility]) [address] [place] [address] Anion gap [Moles/Vol] 9 mmol/L Low 10-20 [facility] Comment on above: Performed By: #### V ERAB #### CARIN Webb ([id number]) [facility] ([facility]) [address] [place] [address] Calcium [Mass/Vol] 8.5 mg/dL Low 8.6-10.6 [facility] Comment on above: Performed By: #### V ERAB #### CARIN Webb ([id number]) [facility] ([facility]) [address] [place] [address] Chloride [Moles/Vol] 99 mmol/L Normal 98-107 [facility] Comment on above: Performed By: #### V ERAB #### CARIN Webb ([id number]) [facility] ([facility]) [address] [place] [address] CO2 [Moles/Vol] 28 mmol/L Normal 21-32 [facility] Comment on above: Performed By: #### V ERAB #### CARIN Webb ([id number]) [facility] ([facility]) [address] [place] [address] Creatinine [Mass/Vol] 0.64 mg/dL Normal 0.50-1.30 [facility] Comment on above: Performed By: #### V ERAB #### CARIN Webb ([id number]) [facility] ([facility]) [address] [place] [address] GFR/1.73 sq M.predicted MDRD (S/P/Bld) [Vol rate/Area] mL/min/{1.73_m2} Normal >60 [facility] Comment on above: Result Comment: Calc ulations of estimated GFR are performed using the 2020 CKD-EPI Study Refit equation without the race variable for the IDMS-Traceable creatinine methods. https://jasn.asnjournals.org/content/early//ASN.7560763 988 Performed By: #### V ERAB #### CARIN Webb ([id number]) [facility] ([facility]) [address] [place] [address] Glucose [Mass/Vol] 94 mg/dL Normal 74-99 [facility] Comment on above: Performed By: #### V ERAB #### CARIN Webb ([id number]) [facility] ([facility]) [address] [place] [address] Phosphate [Mass/Vol] 2.9 mg/dL Normal 2.5-4.9 [facility] Comment on above: Result Comment: The performance characteristics of phosphorus testing in heparinized plasma have been validated by the individual laboratory site where testing is performed. Testing on heparinized plasma is not approved by the FDA; however, such approval is not necessary. Performed By: #### V ERAB #### CARIN Webb ([id number]) [facility] ([facility]) [address] [place] [address] Potassium [Moles/Vol] 4.3 mmol/L Normal 3.5-5.3 [facility] Comment on above: Performed By: #### V ERAB #### CARIN Webb ([id number]) [facility] ([facility]) [address] [place] [address] Sodium [Moles/Vol] 132 mmol/L Low 136-145 [facility] Comment on above: Performed By: #### V ERAB #### CARIN Webb ([id number]) [facility] ([facility]) [address] [place] [address] Urea nitrogen [Mass/Vol] 15 mg/dL Normal 6-23 [facility] Comment on above: Performed By: #### V ERAB #### CARIN Webb ([id number]) [facility] ([facility]) [address] [place] [address] TSHon 01-30-2024 TSH Qn 0.66 m[IU]/L [facility] TSH Qnon 01-30-2024 Interpretation and review of laboratory results Normal [facility] TSH testing is perfo rmed using different testing methodology at [facility] than at other [facility]. Direct result comparisons should only be made within the same method. [facility] Thyrotropinon 01-30-2024 TSH Qn 0.66 m[IU]/L Normal 0.44-3.98 [facility] Comment on above: Order Comment: Thi s is for confirming/verifying history of ABORh on file for transfusion of blood products. If this is not for transfusion, please order an ABO/RH [[id number]]. If you have any questions or unsure what to order, please call the blood bank. Performed By: #### V ERAB #### CARIN Webb ([id number]) [facility] ([facility]) [address] [place] [address] Vitamin B12on 01-30-2024 Cobalamin (Vitamin B12) [Mass/Vol] 468 pg/mL 211 - 911 pg/mL [facility] Vitamin D 25-Hydroxy,Total ( for eval of Vitamin D levels)on 01-30-2024 25-hydroxyvitamin D3 [Mass/Vol] 33 ng/mL 30 - 100 ng/mL [facility] CBC panel Auto (Bld)on 01-28 Erythrocyte distribution width (RBC) [Ratio] 13.2 % 11.5 - 14.5 % [facility] Hematocrit (Bld) [Volume fraction] 28.2 % Low 41.0 - 52.0 % [facility] Hemoglobin (Bld) [Mass/Vol] 9.3 g/dL Low 13.5 - 17.5 g/dL [facility] Interpretation and review of laboratory results Abnormal [facility] MCH (RBC) [Entitic mass] 29.6 pg 26.0 - 34.0 pg [facility] MCHC (RBC) [Mass/Vol] 33.0 g/dL 32.0 - 36.0 g/dL [facility] MCV (RBC) [Entitic vol] 90 fL 80 - 100 fL [facility] Nucleated RBC/100 WBC (Bld) [Ratio] 0.0 % [facility] Platelets (Bld) [#/Vol] 179 10*3/uL [facility] RBC (Bld) [#/Vol] 3.14 10*6/uL Low [facility] WBC (Bld) [#/Vol] 7.0 10*3/uL [facility] Erythrocyte distribution width (RBC) [Ratio] 13.2 % Normal 11.5-14.5 [facility] Comment on above: Performed By: #### V ERAB #### CARIN Webb ([id number]) [facility] ([facility]) [address] [place] [address] Hematocrit (Bld) [Volume fraction] 28.2 % Low 41.0-52.0 [facility] Comment on above: Performed By: #### V ERAB #### CARIN Webb ([id number]) [facility] ([facility]) [address] [place] [address] Hemoglobin (Bld) [Mass/Vol] 9.3 g/dL Low 13.5-17.5 [facility] Comment on above: Performed By: #### V ERAB #### CARIN Webb ([id number]) [facility] ([facility]) [address] [place] [address] MCH (RBC) [Entitic mass] 29.6 pg Normal 26.0-34.0 [facility] Comment on above: Performed By: #### V ERAB #### CARIN Webb ([id number]) [facility] ([facility]) [address] [place] [address] MCHC (RBC) [Mass/Vol] 33.0 g/dL Normal 32.0-36.0 [facility] Comment on above: Performed By: #### V ERAB #### CARIN Webb ([id number]) [facility] ([facility]) [address] [place] [address] MCV (RBC) [Entitic vol] 90 fL Normal 80-100 [facility] Comment on above: Performed By: #### V ERAB #### CARIN Webb ([id number]) [facility] ([facility]) [address] [place] [address] Nucleated RBC/100 WBC (Bld) [Ratio] 0.0 /100 WBCs Normal 0.0-0.0 [facility] Comment on above: Performed By: #### V ERAB #### CARIN Webb ([id number]) [facility] ([facility]) [address] [place] [address] Platelets (Bld) [#/Vol] 179 x10*3/uL Normal 150-450 [facility] Comment on above: Performed By: #### V ERAB #### CARIN Webb ([id number]) [facility] ([facility]) [address] [place] [address] RBC (Bld) [#/Vol] 3.14 x10*6/uL Low 4.50-5.90 [facility] Comment on above: Performed By: #### V ERAB #### CARIN Webb ([id number]) [facility] ([facility]) [address] [place] [address] WBC (Bld) [#/Vol] 7.0 x10*3/uL Normal 4.4-11.3 [facility] Comment on above: Performed By: #### V ERAB #### CARIN Webb ([id number]) [facility] ([facility]) [address] [place] [address] Renal function 2000 panelon 01-29-2024 Albumin BCP dye [Mass/Vol] 3.3 g/dL Low 3.4 - 5.0 g/dL [facility] Anion gap [Moles/Vol] 12 mmol/L 10 - 20 mmol/L [facility] Calcium [Mass/Vol] 8.6 mg/dL 8.6 - 10. 6 mg/dL [facility] Chloride [Moles/Vol] 97 mmol/L Low 98 - 10 7 mmol/L [facility] CO2 [Moles/Vol] 27 mmol/L 21 - 32 mmol/L [facility] Creatinine [Mass/Vol] 0.95 mg/dL 0.50 - 1.30 mg/dL [facility] GFR/1.73 sq M.predicted among non-blacks MDRD (S/P/Bld) [Vol rate/Area] 79 mL/min/{1.73_m2} - PINF [facility] Comment on above: Calculations of sebastien mated GFR are performed using the 2020 CKD-EPI Study Refit equation without the race variable for the IDMS-Traceable creatinine methods. https://jasn.asnjournals.org/content//ASN.3404770 988 Glucose [Mass/Vol] 102 mg/dL High 74 - 99 mg/dL [facility] Interpretation and review of laboratory results Abnormal [facility] Phosphate [Mass/Vol] 2.9 mg/dL 2.5 - 4 .9 mg/dL [facility] Comment on above: The performance tripp acteristics of phosphorus testing in heparinized plasma have been validated by the individual laboratory site where testing is performed. Testing on heparinized plasma is not approved by the FDA; however, such approval is not necessary. Potassium [Moles/Vol] 4.5 mmol/L 3.5 - 5.3 mmol/L [facility] Sodium [Moles/Vol] 131 mmol/L Low 136 - 145 mmol/L [facility] Urea nitrogen [Mass/Vol] 18 mg/dL 6 - 23 mg/dL [facility] Albumin BCP dye [Mass/Vol] 3.3 g/dL Low 3.4-5.0 [facility] Comment on above: Performed By: #### V ERAB #### CARIN Webb ([id number]) [facility] ([facility]) [address] [place] [address] Anion gap [Moles/Vol] 12 mmol/L Normal 10-20 [facility] Comment on above: Performed By: #### V ERAB #### CARIN Webb ([id number]) [facility] ([facility]) [address] [place] [address] Calcium [Mass/Vol] 8.6 mg/dL Normal 8.6-10.6 [facility] Comment on above: Performed By: #### V ERAB #### CARIN Webb ([id number]) [facility] ([facility]) [address] [place] [address] Chloride [Moles/Vol] 97 mmol/L Low 98-107 [facility] Comment on above: Performed By: #### V ERAB #### CARIN Webb ([id number]) [facility] ([facility]) [address] [place] [address] CO2 [Moles/Vol] 27 mmol/L Normal 21-32 [facility] Comment on above: Performed By: #### V ERAB #### CARIN Webb ([id number]) [facility] ([facility]) [address] [place] [address] Creatinine [Mass/Vol] 0.95 mg/dL Normal 0.50-1.30 [facility] Comment on above: Performed By: #### V ERAB #### CARIN MERINO L ([id number]) [facility] ([facility]) [address] [place] [address] Glomerular filtration rate/1.73 sq M.predicted 79 mL/min/1.73m*2 Normal >60 [facility] Comment on above: Result Comment: Calc ulations of estimated GFR are performed using the 2020 CKD-EPI Study Refit equation without the race variable for the IDMS-Traceable creatinine methods. https://jasn.asnjournals.org/content//ASN.1905184 988 Performed By: #### V ERAB #### CARIN Webb ([id number]) [facility] ([facility]) [address] [place] [address] Glucose [Mass/Vol] 102 mg/dL High 74-99 [facility] Comment on above: Performed By: #### V ERAB #### CARIN MERINO L ([id number]) [facility] ([facility]) [address] [place] [address] Phosphate [Mass/Vol] 2.9 mg/dL Normal 2.5-4.9 [facility] Comment on above: Result Comment: The performance characteristics of phosphorus testing in heparinized plasma have been validated by the individual laboratory site where testing is performed. Testing on heparinized plasma is not approved by the FDA; however, such approval is not necessary. Performed By: #### V ERAB #### CARIN Webb ([id number]) [facility] ([facility]) [address] [place] [address] Potassium [Moles/Vol] 4.5 mmol/L Normal 3.5-5.3 [facility] Comment on above: Performed By: #### V ERAB #### CARIN Webb ([id number]) [facility] ([facility]) [address] [place] [address] Sodium [Moles/Vol] 131 mmol/L Low 136-145 [facility] Comment on above: Performed By: #### V ERAB #### CARIN Webb ([id number]) [facility] ([facility]) [address] [place] [address] Urea nitrogen [Mass/Vol] 18 mg/dL Normal 6-23 [facility] Comment on above: Performed By: #### V ERAB #### CARIN Webb ([id number]) [facility] ([facility]) [address] [place] [address] CBC panel Auto (Bld)on 01-27 Erythrocyte distribution width (RBC) [Ratio] 13.2 % 11.5 - 14.5 % [facility] Hematocrit (Bld) [Volume fraction] 35.8 % Low 41.0 - 52.0 % [facility] Hemoglobin (Bld) [Mass/Vol] 10.7 g/dL Low 13.5 - 17.5 g/dL [facility] Interpretation and review of laboratory results Abnormal [facility] MCH (RBC) [Entitic mass] 29.3 pg 26.0 - 34.0 pg [facility] MCHC (RBC) [Mass/Vol] 29.9 g/dL Low 32.0 - 36.0 g/dL [facility] MCV (RBC) [Entitic vol] 98 fL 80 - 100 fL [facility] Nucleated RBC/100 WBC (Bld) [Ratio] 0.0 % [facility] Platelets (Bld) [#/Vol] 154 10*3/uL [facility] RBC (Bld) [#/Vol] 3.65 10*6/uL Low [facility] WBC (Bld) [#/Vol] 8.6 10*3/uL [facility] Erythrocyte distribution width (RBC) [Ratio] 13.2 % Normal 11.5-14.5 [facility] Comment on above: Performed By: #### 5 8410-2 #### CARIN Webb ([id number]) [facility] ([facility]) [address] [place] [address] Hematocrit (Bld) [Volume fraction] 35.8 % Low 41.0-52.0 [facility] Comment on above: Performed By: #### 5 8410-2 #### CARIN Webb ([id number]) [facility] ([facility]) [address] [place] [address] Hemoglobin (Bld) [Mass/Vol] 10.7 g/dL Low 13.5-17.5 [facility] Comment on above: Performed By: #### 5 8410-2 #### CARIN Wbeb ([id number]) [facility] ([facility]) [address] [place] [address] MCH (RBC) [Entitic mass] 29.3 pg Normal 26.0-34.0 [facility] Comment on above: Performed By: #### 5 8410-2 #### CARIN Webb ([id number]) [facility] ([facility]) [address] [place] [address] MCHC (RBC) [Mass/Vol] 29.9 g/dL Low 32.0-36.0 [facility] Comment on above: Performed By: #### 5 8410-2 #### CARIN Webb ([id number]) [facility] ([facility]) [address] [place] [address] MCV (RBC) [Entitic vol] 98 fL Normal 80-100 [facility] Comment on above: Performed By: #### 5 8410-2 #### CARIN Webb ([id number]) [facility] ([facility]) [address] [place] [address] Nucleated RBC/100 WBC (Bld) [Ratio] 0.0 /100 WBCs Normal 0.0-0.0 [facility] Comment on above: Performed By: #### 5 8410-2 #### CARIN MERINO L ([id number]) [facility] ([facility]) [address] [place] [address] Platelets (Bld) [#/Vol] 154 x10*3/uL Normal 150-450 [facility] Comment on above: Performed By: #### 5 8410-2 #### CARIN Webb ([id number]) [facility] ([facility]) [address] [place] [address] RBC (Bld) [#/Vol] 3.65 x10*6/uL Low 4.50-5.90 [facility] Comment on above: Performed By: #### 5 8410-2 #### CARIN MERINO L ([id number]) [facility] ([facility]) [address] [place] [address] WBC (Bld) [#/Vol] 8.6 x10*3/uL Normal 4.4-11.3 [facility] Comment on above: Performed By: #### 5 8410-2 #### CARIN MERINO L ([id number]) [facility] ([facility]) [id number] [place] [address] Abdomen and Pelvis W cont rast Diana 01-28-2024 1. Mildly displaced periprosthetic fracture of the left proximal femur. There is otherwise no evidence of acute traumatic injury within the chest, abdomen, and pelvis. 2. Small hiatal hernia. Circumferential distal wall thickening/edema suggestive of esophagitis. 3. Focal wall thickening of the stomach at the gastric fundus. An underlying mass is not excluded. Gastroenterology follow-up is recommended. I personally reviewed the image(s)/study and resident interpretation. I agree with the findings as stated by resident Sal Grossman. Data analyzed and images interpreted at [place], [place]. MACRO: Critical Finding: See findings. Notification was initiated on 01/28/2024 at 12:59 am by Nevaeh Lind. (-YCF-) Instructions: Signed by: Nevaeh Lind 01/28/2024 12:59 AM Dictation workstation: [id number] [facility] Interpreted By: Nevaeh Goel and [place] Conner STUDY: CT ABDOMEN PELVIS W IV CONTRAST; 01/27/2024 11:40 pm INDICATION: Signs/Symptoms:fall. COMPARISON: CT pelvis 01/27/2024 ACCESSION NUMBER(S): [id number] ORDERING CLINICIAN: HARINI MENDEZ TECHNIQUE: CT of the abdomen and pelvis was performed. Standard contiguous axial images were obtained at 3 mm slice thickness through the abdomen and pelvis. Coronal and sagittal reconstructions at 3 mm slice thickness were performed. 75 ml of contrast Omnipaque 350 were administered intravenously without immediate complication. FINDINGS: LOWER CHEST: Bibasilar atelectasis. The heart is normal in size without pericardial effusion. Severe coronary calcifications. ABDOMEN: LIVER: The liver is normal in size without evidence of focal liver lesions. BILE DUCTS: The intrahepatic and extrahepatic ducts are not dilated. GALLBLADDER: The gallbladder is nondistended and without evidence of radiopaque stones. PANCREAS: The pancreas appears unremarkable without evidence of ductal dilatation or masses. SPLEEN: The spleen is normal in size without focal lesions. ADRENAL GLANDS: Bilateral adrenal glands appear normal. KIDNEYS AND URETERS: The kidneys are normal in size and enhance symmetrically. There is a large simple attenuating right renal cyst measuring up to 8.7 cm. Small bilateral peripelvic cysts. Punctate nonobstructing stones within the midpole and the inferior pole of the left kidney. No hydroureteronephrosis. PELVIS: Evaluation of the pelvic structures is limited secondary to streak artifact from bilateral hip replacements. BLADDER: Limited evaluation due to streak artifact from bilateral hip arthroplasties. No significant bladder wall thickening is seen. REPRODUCTIVE ORGANS: Limited evaluation due to streak artifact. BOWEL: Circumferential wall thickening and submucosal edema of the distal esophagus. Fluid in the distal esophagus suggestive of gastroesophageal reflux. Small hiatal hernia. Focal wall thickening of the gastric fundus. The small and large bowel are normal in caliber and demonstrate no wall thickening. Diffuse colonic diverticulosis without evidence of diverticulitis. Large colonic stool burden. The appendix is normal. VESSELS: There is no aneurysmal dilatation of the abdominal aorta. Moderate atherosclerotic disease of the aorta and its branches. The IVC appears normal. PERITONEUM/RETROPERITONEUM/L YMPH NODES: No ascites or free air, no fluid collection. No abdominopelvic lymphadenopathy is present. BONES AND ABDOMINAL WALL: Bilateral total hip arthroplasties. Periprosthetic subtrochanteric fracture of the left femur with 0.5 cm lateral and 1 cm posterior displacement. The right arthroplasty appears unremarkable. Diffuse degenerative disc changes noted the abdominal wall soft tissues appear normal. [facility] Nevaeh Lind MD - 01/28/2024 Interpreted By: Nevaeh Lind and [place] Conner STUDY: CT ABDOMEN PELVIS W IV CONTRAST; 01/27/2024 11:40 pm INDICATION: Signs/Symptoms:fall. COMPARISON: CT pelvis 01/27/2024 ACCESSION NUMBER(S): [id number] ORDERING CLINICIAN: HARINI MENDEZ TECHNIQUE: CT of the abdomen and pelvis was performed. Standard contiguous axial images were obtained at 3 mm slice thickness through the abdomen and pelvis. Coronal and sagittal reconstructions at 3 mm slice thickness were performed. 75 ml of contrast Omnipaque 350 were administered intravenously without immediate complication. FINDINGS: LOWER CHEST: Bibasilar atelectasis. The heart is normal in size without pericardial effusion. Severe coronary calcifications. ABDOMEN: LIVER: The liver is normal in size without evidence of focal liver lesions. BILE DUCTS: The intrahepatic and extrahepatic ducts are not dilated. GALLBLADDER: The gallbladder is nondistended and without evidence of radiopaque stones. PANCREAS: The pancreas appears unremarkable without evidence of ductal dilatation or masses. SPLEEN: The spleen is normal in size without focal lesions. ADRENAL GLANDS: Bilateral adrenal glands appear normal. KIDNEYS AND URETERS: The kidneys are normal in size and enhance symmetrically. There is a large simple attenuating right renal cyst measuring up to 8.7 cm. Small bilateral peripelvic cysts. Punctate nonobstructing stones within the midpole and the inferior pole of the left kidney. No hydroureteronephrosis. PELVIS: Evaluation of the pelvic structures is limited secondary to streak artifact from bilateral hip replacements. BLADDER: Limited evaluation due to streak artifact from bilateral hip arthroplasties. No significant bladder wall thickening is seen. REPRODUCTIVE ORGANS: Limited evaluation due to streak artifact. BOWEL: Circumferential wall thickening and submucosal edema of the distal esophagus. Fluid in the distal esophagus suggestive of gastroesophageal reflux. Small hiatal hernia. Focal wall thickening of the gastric fundus. The small and large bowel are normal in caliber and demonstrate no wall thickening. Diffuse colonic diverticulosis without evidence of diverticulitis. Large colonic stool burden. The appendix is normal. VESSELS: There is no aneurysmal dilatation of the abdominal aorta. Moderate atherosclerotic disease of the aorta and its branches. The IVC appears normal. PERITONEUM/RETROPERITONEUM/L YMPH NODES: No ascites or free air, no fluid collection. No abdominopelvic lymphadenopathy is present. BONES AND ABDOMINAL WALL: Bilateral total hip arthroplasties. Periprosthetic subtrochanteric fracture of the left femur with 0.5 cm lateral and 1 cm posterior displacement. The right arthroplasty appears unremarkable. Diffuse degenerative disc changes noted the abdominal wall soft tissues appear normal. IMPRESSION: 1. Mildly displaced periprosthetic fracture of the left proximal femur. There is otherwise no evidence of acute traumatic injury within the chest, abdomen, and pelvis. 2. Small hiatal hernia. Circumferential distal wall thickening/edema suggestive of esophagitis. 3. Focal wall thickening of the stomach at the gastric fundus. An underlying mass is not excluded. Gastroenterology follow-up is recommended. I personally reviewed the image(s)/study and resident interpretation. I agree with the findings as stated by resident Sal Grossman. Data analyzed and images interpreted at [facility], [place], [place]. MACRO: Critical Finding: See findings. Notification was initiated on 01/28/2024 at 12:59 am by Nevaeh Lind. (-YCF-) Instructions: Signed by: Nevaeh Lind 01/28/2024 12:59 AM Dictation workstation: [id number] [facility] Work Phone: [facility] Work Phone: ECG 12 LeadOrdered By: Jessa Hill on 01-28-2024 Atrial Rate 67 BPM [facility] Work Phone: P [place] 30 degrees [facility] Work Phone: P Offset 185 [facility] Work Phone: P Onset 124 ms [facility] Work Phone: [phone] GA Interval 192 ms [facility] Work Phone: [phone] Q Onset 220 ms [facility] Work Phone: [phone] QRS Count 10 beats [facility] Work Phone: [phone] QRS Duration 90 ms [facility] Work Phone: [phone] QT Interval 392 ms [facility] Work Phone: [phone] QTC Calculation(Bazett) 414 [facility] Work Phone: [phone] QTC [place] 407 [facility] Work Phone: [phone] R [place] 39 degrees [facility] Work Phone: T [place] 34 degrees [facility] Work Phone: [phone] T Offset 416 ms [facility] Work Phone: Ventricular Rate 67 BPM [facility] Work Phone: [phone] [facility] Work Phone: [phone] ECG 12 Leadon 01-28-2024 Normal sinus rhythm Normal ECG No previous ECGs available See ED provider note for full interpretation and clinical correlation Confirmed by Daphne Hill ([id number]) on 01/28/2024 1:10:44 AM Daphne Moore PA-C - 01/28/2024 Normal sinus rhythm Normal ECG No previous ECGs available See ED provider note for full interpretation and clinical correlation Confirmed by Daphne Hill ([id number]) on 01/28/2024 1:10:44 AM [facility] Work Phone: FL FLUORO IMAGES NO CHARGEon 01-28-2024 FL FLUORO IMAGES NO CHARGE These images are not reportable by radiology and will not be interpreted by Radiologists. Normal [facility] Magnesiumon 01-28-2024 Magnesium [Mass/Vol] 2.02 mg/dL 1.60 - 2.40 mg/dL [facility] Magnesium [Mass/Vol] 2.02 mg/dL Normal 1.60-2.40 [facility] Comment on above: Performed By: #### 1 9123-9 #### CARIN Webb ([id number]) [facility] ([facility]) [id number] [place] [address] Magnesium [Mass/Vol]on 01-27 Interpretation and review of laboratory results Normal [facility] No Panel Informationon 01-27 [facility] 1. Minimally displac ed subtrochanteric periprosthetic fracture, not significantly changed in alignment. 2. 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 I personally reviewed the images/study and I agree with the findings as stated by Dr. Song Lozoya. This study was interpreted at [place], [place]. MACRO: None Signed by: Nevaeh Lind 01/28/2024 12:34 AM Dictation workstation: [id number] [facility] Interpreted By: Nevaeh Goel and [place] Zachary STUDY: XR HIP LEFT WITH PELVIS WHEN PERFORMED 2 OR 3 VIEWS; XR KNEE LEFT 1-2 VIEWS 01/27/2024 8:52 pm INDICATION: Signs/Symptoms:femur fracture COMPARISON: Pelvic radiograph 01/27/2024. ACCESSION NUMBER(S): [id number]; [id number] ORDERING CLINICIAN: JADEN GONZALEZ TECHNIQUE: AP view of the pelvis and left hip. FINDINGS: Status post bilateral hip arthroplasty. Oblique subtrochanteric periprosthetic fracture with 0.2 cm lateral displacement, not significantly changed in alignment. No other acute fracture or dislocation. No significant lucency around the hardware to suggest chronic loosening. Severe calcified atherosclerotic disease of the bilateral lower extremity vessels. The overlying soft tissues unremarkable. The visualized pelvic structures unremarkable. Moderate tricompartment degenerative changes of the left knee with osteophytosis, lateral greater than medial joint space narrowing and subchondral sclerosis. Small suprapatellar joint effusion. No acute fracture or malalignment of the knee. [facility] Nevaeh Lind MD - 01/28/2024 Interpreted By: Nevaeh Lind and Ohs Zachary STUDY: XR HIP LEFT WITH PELVIS WHEN PERFORMED 2 OR 3 VIEWS; XR KNEE LEFT 1-2 VIEWS 01/27/2024 8:52 pm INDICATION: Signs/Symptoms:femur fracture COMPARISON: Pelvic radiograph 01/27/2024. ACCESSION NUMBER(S): [id number]; [id number] ORDERING CLINICIAN: JADEN GONZALEZ TECHNIQUE: AP view of the pelvis and left hip. FINDINGS: Status post bilateral hip arthroplasty. Oblique subtrochanteric periprosthetic fracture with 0.2 cm lateral displacement, not significantly changed in alignment. No other acute fracture or dislocation. No significant lucency around the hardware to suggest chronic loosening. Severe calcified atherosclerotic disease of the bilateral lower extremity vessels. The overlying soft tissues unremarkable. The visualized pelvic structures unremarkable. Moderate tricompartment degenerative changes of the left knee with osteophytosis, lateral greater than medial joint space narrowing and subchondral sclerosis. Small suprapatellar joint effusion. No acute fracture or malalignment of the knee. IMPRESSION: 1. Minimally displaced subtrochanteric periprosthetic fracture, not significantly changed in alignment. 2. 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 I personally reviewed the images/study and I agree with the findings as stated by Dr. Song Lozoya. This study was interpreted at [place], [place]. MACRO: None Signed by: Nevaeh Lind 01/28/2024 12:34 AM Dictation workstation: [id number] [facility] Work Phone: No Panel InformationOrdered By: Nevaeh Lind on 01-28-2024 [facility] Work Phone: Renal function 2000 panelon 01-28-2024 Albumin BCP dye [Mass/Vol] 3.3 g/dL Low 3.4 - 5.0 g/dL [facility] Anion gap [Moles/Vol] 13 mmol/L 10 - 20 mmol/L [facility] Calcium [Mass/Vol] 8.2 mg/dL Low 8.6 - 10. 6 mg/dL [facility] Chloride [Moles/Vol] 100 mmol/L 98 - 10 7 mmol/L [facility] CO2 [Moles/Vol] 23 mmol/L 21 - 32 mmol/L [facility] Creatinine [Mass/Vol] 0.74 mg/dL 0.50 - 1.30 mg/dL [facility] GFR/1.73 sq M.predicted among non-blacks MDRD (S/P/Bld) [Vol rate/Area] 89 mL/min/{1.73_m2} - PINF [facility] Comment on above: Calculations of sebastien mated GFR are performed using the 2020 CKD-EPI Study Refit equation without the race variable for the IDMS-Traceable creatinine methods. https://jasn.asnjournals.org/content//ASN.1640688 988 Glucose [Mass/Vol] 142 mg/dL High 74 - 99 mg/dL [facility] Interpretation and review of laboratory results Abnormal [facility] Phosphate [Mass/Vol] 3.5 mg/dL 2.5 - 4 .9 mg/dL [facility] Comment on above: The performance tripp acteristics of phosphorus testing in heparinized plasma have been validated by the individual laboratory site where testing is performed. Testing on heparinized plasma is not approved by the FDA; however, such approval is not necessary. Potassium [Moles/Vol] 4.8 mmol/L 3.5 - 5.3 mmol/L [facility] Sodium [Moles/Vol] 131 mmol/L Low 136 - 145 mmol/L [facility] Urea nitrogen [Mass/Vol] 14 mg/dL 6 - 23 mg/dL [facility] Albumin BCP dye [Mass/Vol] 3.3 g/dL Low 3.4-5.0 [facility] Comment on above: Performed By: #### 2 4362-6 #### CARIN Webb ([id number]) [facility] ([facility]) [address] [place] [address] Anion gap [Moles/Vol] 13 mmol/L Normal 10-20 [facility] Comment on above: Performed By: #### 2 4362-6 #### CARIN Webb ([id number]) [facility] ([facility]) [address] [place] [address] Calcium [Mass/Vol] 8.2 mg/dL Low 8.6-10.6 [facility] Comment on above: Performed By: #### 2 4362-6 #### CARIN Webb ([id number]) [facility] ([facility]) [address] [place] [address] Chloride [Moles/Vol] 100 mmol/L Normal 98-107 [facility] Comment on above: Performed By: #### 2 4362-6 #### CARIN MERINO L ([id number]) [facility] ([facility]) [address] [place] [address] CO2 [Moles/Vol] 23 mmol/L Normal 21-32 [facility] [place] [facility] Comment on above: Performed By: #### 2 4362-6 #### CARIN Webb ([id number]) [facility] ([facility]) [address] [place] [address] Creatinine [Mass/Vol] 0.74 mg/dL Normal 0.50-1.30 [facility] Comment on above: Performed By: #### 2 4362-6 #### CARIN MERINO L ([id number]) [facility] ([facility]) [id number] [place] [address] Glomerular filtration rate/1.73 sq M.predicted 89 mL/min/1.73m*2 Normal >60 [facility] Comment on above: Result Comment: Calc ulations of estimated GFR are performed using the 2020 CKD-EPI Study Refit equation without the race variable for the IDMS-Traceable creatinine methods. https://jasn.asnjournals.org/content//ASN.3524956 988 Performed By: #### 2 4362-6 #### CARIN MERINO L ([id number]) [facility] ([facility]) [address] [place] [address] Glucose [Mass/Vol] 142 mg/dL High 74-99 [facility] Comment on above: Performed By: #### 2 4362-6 #### CARIN Webb ([id number]) [facility] ([facility]) [address] [place] [address] Phosphate [Mass/Vol] 3.5 mg/dL Normal 2.5-4.9 [facility] Comment on above: Result Comment: The performance characteristics of phosphorus testing in heparinized plasma have been validated by the individual laboratory site where testing is performed. Testing on heparinized plasma is not approved by the FDA; however, such approval is not necessary. Performed By: #### 2 4362-6 #### CARIN Webb ([id number]) [facility] ([facility]) [address] [place] [address] Potassium [Moles/Vol] 4.8 mmol/L Normal 3.5-5.3 [facility] Comment on above: Performed By: #### 2 4362-6 #### CARIN JADEMODENISEER L ([id number]) [facility] ([facility]) [address] [place] [address] Sodium [Moles/Vol] 131 mmol/L Low 136-145 [facility] Comment on above: Performed By: #### 2 4362-6 #### CARIN MERINO L ([id number]) [facility] ([facility]) [address] [place] [address] Urea nitrogen [Mass/Vol] 14 mg/dL Normal 6-23 [facility] Comment on above: Performed By: #### 2 4362-6 #### CARIN MERINO L ([id number]) [facility] ([facility]) [address] [place] [address] XR Chest Single viewon 01-27 1. Mild bibasilar atelectasis. I personally reviewed the images/study and I agree with the findings as stated by Dr. Song Lozoya. This study was interpreted at [facility], [place], [place]. MACRO: None Signed by: Nevaeh Lind 01/28/2024 12:36 AM Dictation workstation: [id number] [facility] Interpreted By: Nevaeh Goel and Ohs Zachary STUDY: XR CHEST 1 VIEW; 01/27/2024 8:52 pm INDICATION: Signs/Symptoms:preop clearance. COMPARISON: None. ACCESSION NUMBER(S): [id number] ORDERING CLINICIAN: JADEN GONZALEZ FINDINGS: AP radiograph of the chest was provided. MEDICAL DEVICES: None. CARDIOMEDIASTINAL SILHOUETTE: Cardiomediastinal silhouette is normal in size and configuration. LUNGS: Perihilar peribronchial thickening. Strandy bibasilar opacities, consistent with atelectasis. Additional artifactual bibasilar densities related to superimposed soft tissue overlying the lower extremities. No pneumothorax. Small left pleural effusion. ABDOMEN: No remarkable upper abdominal findings. BONES: Remote fractures of the posterolateral 6th and 7th ribs. [facility] Nevaeh Lind MD - 01/28/2024 Interpreted By: Nevaeh Lind and Ohs Zachary STUDY: XR CHEST 1 VIEW; 01/27/2024 8:52 pm INDICATION: Signs/Symptoms:preop clearance. COMPARISON: None. ACCESSION NUMBER(S): [id number] ORDERING CLINICIAN: JADEN GONZALEZ FINDINGS: AP radiograph of the chest was provided. MEDICAL DEVICES: None. CARDIOMEDIASTINAL SILHOUETTE: Cardiomediastinal silhouette is normal in size and configuration. LUNGS: Perihilar peribronchial thickening. Strandy bibasilar opacities, consistent with atelectasis. Additional artifactual bibasilar densities related to superimposed soft tissue overlying the lower extremities. No pneumothorax. Small left pleural effusion. ABDOMEN: No remarkable upper abdominal findings. BONES: Remote fractures of the posterolateral 6th and 7th ribs. IMPRESSION: 1. Mild bibasilar atelectasis. I personally reviewed the images/study and I agree with the findings as stated by Dr. Song Lozoya. This study was interpreted at [place], [place]. MACRO: None Signed by: Nevaeh Lind 01/28/2024 12:36 AM Dictation workstation: [id number] [facility] Work Phone: [facility] Work Phone: XR tomography Unspecified dave dy regionon 01-28-2024 These images are not reportable by radiology and will not be interpreted by Radiologists. IMAGING Blood type AND Indirect anti body screen panelon 01-27-2024 ABO group Nom (Bld) A Normal [facility] Comment on above: Performed By: #### 3 4532-2 #### CARIN Webb ([id number]) [facility] ([facility]) [address] [id number] D Ag Ql (Bld) Positive Normal [facility] Comment on above: Performed By: #### 3 4532-2 #### CARIN Webb ([id number]) [facility] ([facility]) [address] [place] [address] Blood type and Indirect anti body screen panel (Bld)on 01-27-2024 ABO group Nom (Bld) A [facility] Blood group antibody screen Ql Negative [facility] D Ag Ql (Bld) Positive [facility] Blood group antibody screen Ql Negative Normal [facility] Comment on above: Performed By: #### 3 4532-2 #### CARIN Webb ([id number]) [facility] ([facility]) [address] [place] [address] CBC W Auto Differential pane l (Bld)on 01-27-2024 Basophils (Bld) [#/Vol] 0.05 10*3/uL [facility] Basophils/100 WBC (Bld) 0.6 % 0.0 - 2.0 % [facility] Eosinophils (Bld) [#/Vol] 0.57 10*3/uL High [facility] Eosinophils/100 WBC (Bld) 7.3 % 0.0 - 6.0 % [facility] Erythrocyte distribution width (RBC) [Ratio] 13.4 % 11.5 - 14.5 % [facility] Hematocrit (Bld) [Volume fraction] 36.5 % Low 41.0 - 52.0 % [facility] Hemoglobin (Bld) [Mass/Vol] 12.3 g/dL Low 13.5 - 17.5 g/dL [facility] Immature granulocytes (Bld) [#/Vol] 0.03 10*3/uL [facility] Immature granulocytes/100 WBC (Bld) 0.4 % 0.0 - 0.9 % [facility] Comment on above: Immature Granulocyte Count (IG) includes promyelocytes, myelocytes and metamyelocytes but does not include bands. Percent differential counts (%) should be interpreted in the context of the absolute cell counts (cells/UL). Interpretation and review of laboratory results Abnormal [facility] Lymphocytes (Bld) [#/Vol] 0.97 10*3/uL [facility] Lymphocytes/100 WBC (Bld) 12.3 % 13.0 - 44.0 % [facility] MCH (RBC) [Entitic mass] 29.9 pg 26.0 - 34.0 pg [facility] MCHC (RBC) [Mass/Vol] 33.7 g/dL 32.0 - 36.0 g/dL [facility] MCV (RBC) [Entitic vol] 89 fL 80 - 100 fL [facility] Monocytes (Bld) [#/Vol] 1.09 10*3/uL High [facility] Monocytes/100 WBC (Bld) 13.9 % 2.0 - 10.0 % [facility] Neutrophils (Bld) [#/Vol] 5.15 10*3/uL [facility] Comment on above: Percent differential counts (%) should be interpreted in the context of the absolute cell counts (cells/uL). Neutrophils/100 WBC (Bld) 65.5 % 40.0 - 80.0 % [facility] Nucleated RBC/100 WBC (Bld) [Ratio] 0.0 % [facility] Platelets (Bld) [#/Vol] 182 10*3/uL [facility] RBC (Bld) [#/Vol] 4.12 10*6/uL Low [facility] WBC (Bld) [#/Vol] 7.9 10*3/uL [facility] Basophils (Bld) [#/Vol] 0.05 x10*3/uL Normal 0.00-0.10 [facility] Comment on above: Performed By: #### 5 7021-8 #### BRANDON Webb ([id number]) [facility] ([facility]) [address] [place] [address] Basophils/100 WBC (Bld) 0.6 % Normal 0.0-2.0 [facility] Comment on above: Performed By: #### 70-8 #### BRANDON Webb ([id number]) [facility] ([facility]) [address] [place] [address] Eosinophils (Bld) [#/Vol] 0.57 x10*3/uL High 0.00-0.40 [facility] Comment on above: Performed By: #### 5 7021-8 #### BRANDON Webb ([id number]) [facility] ([facility]) [address] [place] [address] Eosinophils/100 WBC (Bld) 7.3 % Normal 0.0-6.0 [facility] Comment on above: Performed By: #### 5 7021-8 #### BRANDON Webb ([id number]) [facility] ([facility]) [address] [place] [address] Erythrocyte distribution width (RBC) [Ratio] 13.4 % Normal 11.5-14.5 [facility] Comment on above: Performed By: #### 5 7021-8 #### BRANDON Webb ([id number]) [facility] ([facility]) [address] [place] [address] Hematocrit (Bld) [Volume fraction] 36.5 % Low 41.0-52.0 [facility] Comment on above: Performed By: #### 5 7021-8 #### BRANDON Webb ([id number]) [facility] ([facility]) [address] [place] [address] Hemoglobin (Bld) [Mass/Vol] 12.3 g/dL Low 13.5-17.5 [facility] Comment on above: Performed By: #### 70-8 #### BRANDON Webb ([id number]) [facility] ([facility]) [address] [place] [address] Immature granulocytes (Bld) [#/Vol] 0.03 x10*3/uL Normal 0.00-0.50 [facility] Comment on above: Performed By: #### 5 7021-8 #### BRANDON Webb ([id number]) [facility] ([facility]) [address] [place] [address] Immature granulocytes/100 WBC (Bld) 0.4 % Normal 0.0-0.9 [facility] Comment on above: Result Comment: Larisa ture Granulocyte Count (IG) includes promyelocytes, myelocytes and metamyelocytes but does not include bands. Percent differential counts (%) should be interpreted in the context of the absolute cell counts (cells/UL). Performed By: #### 5 7021-8 #### BRANDON Webb ([id number]) [facility] ([facility]) [address] [place] [address] Lymphocytes (Bld) [#/Vol] 0.97 x10*3/uL Normal 0.80-3.00 [facility] Comment on above: Performed By: #### 5 7021-8 #### BRANDON Webb ([id number]) [facility] ([facility]) [address] [place] [address]35[address] Lymphocytes/100 WBC (Bld) 12.3 % Normal 13.0-44.0 [facility] Comment on above: Performed By: #### 5 7021-8 #### BRANDON Webb ([id number]) [facility] ([facility]) [address] [place] [address] MCH (RBC) [Entitic mass] 29.9 pg Normal 26.0-34.0 [facility] Comment on above: Performed By: #### 5 7021-8 #### BRANDON Webb ([id number]) [facility] ([facility]) [address] [place] [address]885 MCHC (RBC) [Mass/Vol] 33.7 g/dL Normal 32.0-36.0 [facility] Comment on above: Performed By: #### 5 7021-8 #### BRANDON Webb ([id number]) [facility] ([facility]) [address] [place] [address] MCV (RBC) [Entitic vol] 89 fL Normal 80-100 [facility] Comment on above: Performed By: #### 5 7021-8 #### BRANDON Webb ([id number]) [facility] ([facility]) [address] [place] [address] 08964 Monocytes (Bld) [#/Vol] 1.09 x10*3/uL High 0.05-0.80 [facility] Comment on above: Performed By: #### 5 7021-8 #### BRANDON Webb ([id number]) [facility] ([facility]) [address] [place] [address]61 Monocytes/100 WBC (Bld) 13.9 % Normal 2.0-10.0 [facility] Comment on above: Performed By: #### 5 7021-8 #### BRANDON Webb ([id number]) [facility] ([facility]) [address] [place] [address]192 Neutrophils (Bld) [#/Vol] 5.15 x10*3/uL Normal 1.60-5.50 [facility] Comment on above: Result Comment: Perc ent differential counts (%) should be interpreted in the context of the absolute cell counts (cells/uL). Performed By: #### 5 7021-8 #### BRANDON Webb ([id number]) [facility] ([facility]) [address] [place] [address]221 Neutrophils/100 WBC (Bld) 65.5 % Normal 40.0-80.0 [facility] Comment on above: Performed By: #### 5 7021-8 #### BRANDON Webb ([id number]) [facility] ([facility]) [address] [place] [address] 27579 Nucleated RBC/100 WBC (Bld) [Ratio] 0.0 /100 WBCs Normal 0.0-0.0 [facility] Comment on above: Performed By: #### 5 7021-8 #### BRANDON Webb ([id number]) [facility] ([facility]) [address] [place] [address]347 Platelets (Bld) [#/Vol] 182 x10*3/uL Normal 150-450 [facility] Comment on above: Performed By: #### 5 7021-8 #### BRANDON Webb ([id number]) [facility] ([facility]) [address] [place] [address] 82705 RBC (Bld) [#/Vol] 4.12 x10*6/uL Low 4.50-5.90 [facility] Comment on above: Performed By: #### 5 7021-8 #### BRANDON Webb ([id number]) [facility] ([facility]) [address] [place] [address]359 WBC (Bld) [#/Vol] 7.9 x10*3/uL Normal 4.4-11.3 [facility] Comment on above: Performed By: #### 5 7021-8 #### BRANDON Webb ([id number]) [facility] ([facility]) [address] [place] [address] ABDOMEN PELVIS W IV CONTR Jane 01-27-2024 CT ABDOMEN PELVIS W IV CONTRAST Interpreted By: Nevaeh Lind and Beyersdorf Conner STUDY: CT ABDOMEN PELVIS W IV CONTRAST; 01/27/2024 11:40 pm INDICATION: Signs/Symptoms:fall. COMPARISON: CT pelvis 01/27/2024 ACCESSION NUMBER(S): [id number] ORDERING CLINICIAN: HARINI MENDEZ TECHNIQUE: CT of the abdomen and pelvis was performed. Standard contiguous axial images were obtained at 3 mm slice thickness through the abdomen and pelvis. Coronal and sagittal reconstructions at 3 mm slice thickness were performed. 75 ml of contrast Omnipaque 350 were administered intravenously without immediate complication. FINDINGS: LOWER CHEST: Bibasilar atelectasis. The heart is normal in size without pericardial effusion. Severe coronary calcifications. ABDOMEN: LIVER: The liver is normal in size without evidence of focal liver lesions. BILE DUCTS: The intrahepatic and extrahepatic ducts are not dilated. GALLBLADDER: The gallbladder is nondistended and without evidence of radiopaque stones. PANCREAS: The pancreas appears unremarkable without evidence of ductal dilatation or masses. SPLEEN: The spleen is normal in size without focal lesions. ADRENAL GLANDS: Bilateral adrenal glands appear normal. KIDNEYS AND URETERS: The kidneys are normal in size and enhance symmetrically. There is a large simple attenuating right renal cyst measuring up to 8.7 cm. Small bilateral peripelvic cysts. Punctate nonobstructing stones within the midpole and the inferior pole of the left kidney. No hydroureteronephrosis. PELVIS: Evaluation of the pelvic structures is limited secondary to streak artifact from bilateral hip replacements. BLADDER: Limited evaluation due to streak artifact from bilateral hip arthroplasties. No significant bladder wall thickening is seen. REPRODUCTIVE ORGANS: Limited evaluation due to streak artifact. BOWEL: Circumferential wall thickening and submucosal edema of the distal esophagus. Fluid in the distal esophagus suggestive of gastroesophageal reflux. Small hiatal hernia. Focal wall thickening of the gastric fundus. The small and large bowel are normal in caliber and demonstrate no wall thickening. Diffuse colonic diverticulosis without evidence of diverticulitis. Large colonic stool burden. The appendix is normal. VESSELS: There is no aneurysmal dilatation of the abdominal aorta. Moderate atherosclerotic disease of the aorta and its branches. The IVC appears normal. PERITONEUM/RETROPERITONEUM/L YMPH NODES: No ascites or free air, no fluid collection. No abdominopelvic lymphadenopathy is present. BONES AND ABDOMINAL WALL: Bilateral total hip arthroplasties. Periprosthetic subtrochanteric fracture of the left femur with 0.5 cm lateral and 1 cm posterior displacement. The right arthroplasty appears unremarkable. Diffuse degenerative disc changes noted the abdominal wall soft tissues appear normal. IMPRESSION: 1. Mildly displaced periprosthetic fracture of the left proximal femur. There is otherwise no evidence of acute traumatic injury within the chest, abdomen, and pelvis. 2. Small hiatal hernia. Circumferential distal wall thickening/edema suggestive of esophagitis. 3. Focal wall thickening of the stomach at the gastric fundus. An underlying mass is not excluded. Gastroenterology follow-up is recommended. I personally reviewed the image(s)/study and resident interpretation. I agree with the findings as stated by resident Sal Grossman. Data analyzed and images interpreted at [facility], [place], [place]. MACRO: Critical Finding: See findings. Notification was initiated on 01/28/2024 at 12:59 am by Nevaeh Lind. (-YCF-) Instructions: Signed by: Nevaeh Lind 01/28/2024 12:59 AM Dictation workstation: [id number] [facility] CT Abdomen and Pelvis W cont rast Diana 01-27-2024 Radiology Study observation (narrative) [facility] Work Phone: CT LUMBAR SPINE WO IV CONTRA STon 01-27-2024 CT LUMBAR SPINE WO IV CONTRAST Interpreted By: Lelia Mclaughlin, STUDY: CT LUMBAR SPINE WO IV CONTRAST 01/27/2024 12:14 pm INDICATION: Signs/Symptoms:fall COMPARISON: None. ACCESSION NUMBER(S): [id number] ORDERING CLINICIAN: DEZ HOOVER TECHNIQUE: Axial CT images of the lumbar spine are obtained. Axial, coronal and sagittal reconstructions are provided for review. FINDINGS: Apparent osteopenia. Minimal retrolisthesis of L1 on L2. Disc space loss throughout with endplate sclerosis and osteophytes. No erosions. No acute fracture-dislocation. Central canal and neural foraminal narrowing at multiple levels. The included soft tissues and organs demonstrate large hypodensity arising from the right kidney likely a simple cyst but not fully characterized on this unenhanced CT. Nonobstructing left renal stone. Heavy aortic calcification. IMPRESSION: Multilevel discogenic degenerative changes with central canal and neural foraminal narrowing at multiple levels and vacuum disc at every level. Minimal loss of height of multiple lumbar spine vertebral bodies of likely chronic nature. MACRO: None Signed by: Lelia Mclaughlin 01/27/2024 1:35 PM Dictation workstation: [id number] [facility] CT Lumbar spine WO contrasto n 01-27-2024 Multilevel discogeni c degenerative changes with central canal and neural foraminal narrowing at multiple levels and vacuum disc at every level. Minimal loss of height of multiple lumbar spine vertebral bodies of likely chronic nature. MACRO: None Signed by: Lelia Mclaughlin 01/27/2024 1:35 PM Dictation workstation: [id number] [facility] Interpreted By: Lelia Romo, STUDY: CT LUMBAR SPINE WO IV CONTRAST 01/27/2024 12:14 pm INDICATION: Signs/Symptoms:fall COMPARISON: None. ACCESSION NUMBER(S): [id number] ORDERING CLINICIAN: DEZ HOOVER TECHNIQUE: Axial CT images of the lumbar spine are obtained. Axial, coronal and sagittal reconstructions are provided for review. FINDINGS: Apparent osteopenia. Minimal retrolisthesis of L1 on L2. Disc space loss throughout with endplate sclerosis and osteophytes. No erosions. No acute fracture-dislocation. Central canal and neural foraminal narrowing at multiple levels. The included soft tissues and organs demonstrate large hypodensity arising from the right kidney likely a simple cyst but not fully characterized on this unenhanced CT. Nonobstructing left renal stone. Heavy aortic calcification. [facility] Lelia Mclaughlin MD - 01/27/2024 Interpreted By: Lelia Mclaughlin, STUDY: CT LUMBAR SPINE WO IV CONTRAST 01/27/2024 12:14 pm INDICATION: Signs/Symptoms:fall COMPARISON: None. ACCESSION NUMBER(S): [id number] ORDERING CLINICIAN: DEZ HOOVER TECHNIQUE: Axial CT images of the lumbar spine are obtained. Axial, coronal and sagittal reconstructions are provided for review. FINDINGS: Apparent osteopenia. Minimal retrolisthesis of L1 on L2. Disc space loss throughout with endplate sclerosis and osteophytes. No erosions. No acute fracture-dislocation. Central canal and neural foraminal narrowing at multiple levels. The included soft tissues and organs demonstrate large hypodensity arising from the right kidney likely a simple cyst but not fully characterized on this unenhanced CT. Nonobstructing left renal stone. Heavy aortic calcification. IMPRESSION: Multilevel discogenic degenerative changes with central canal and neural foraminal narrowing at multiple levels and vacuum disc at every level. Minimal loss of height of multiple lumbar spine vertebral bodies of likely chronic nature. MACRO: None Signed by: Lelia Mclaughlin 01/27/2024 1:35 PM Dictation workstation: [id number] [facility] Work Phone: CT Lumbar spine WO contrastO rdered By: Lelia Mclaughlin on 01-27-2024 [facility] Work Phone: CT PELVIS WO IV CONTRASTon 0 01-27-2024 CT PELVIS WO IV CONTRAST Interpreted By: Sushil Mcclellan, STUDY: CT PELVIS WO IV CONTRAST; ; 01/27/2024 12:14 pm INDICATION: Signs/Symptoms:fall/left hip pain/history of implant/unable to ambulate. COMPARISON: None. ACCESSION NUMBER(S): [id number] ORDERING CLINICIAN: DEZ HOOVER TECHNIQUE: Multiple thin-section axial images pelvis reconstructed in the sagittal and coronal plane without contrast. There is some limitation to the study due to beam hardening artifact from the patient's bilateral total hip arthroplasties. FINDINGS: There is a nondisplaced periprosthetic fracture about the femoral stem of the left hip arthroplasty. No other fracture seen. No significant osteolysis bilaterally. No soft tissue masses. No focal fluid collections. Degenerative changes of the lumbar spine and sacroiliac joints. There is generalized edema of the thigh musculature circumferential about the left femur at the fracture line but no evidence of a discrete hematoma. IMPRESSION: Nondisplaced periprosthetic fracture left femur adjacent to the femoral stem of the left total hip arthroplasty. MACRO: None Signed by: Sushil Mcclellan 01/27/2024 12:43 PM Dictation workstation: [id number] [facility] CT Pelvis WO contraston - Nondisplaced peripro sthetic fracture left femur adjacent to the femoral stem of the left total hip arthroplasty. MACRO: None Signed by: Sushil Mcclellan 01/27/2024 12:43 PM Dictation workstation: [id number] [facility] Interpreted By: Sushil Harris, STUDY: CT PELVIS WO IV CONTRAST; ; 01/27/2024 12:14 pm INDICATION: Signs/Symptoms:fall/left hip pain/history of implant/unable to ambulate. COMPARISON: None. ACCESSION NUMBER(S): [id number] ORDERING CLINICIAN: DEZ HOOVER TECHNIQUE: Multiple thin-section axial images pelvis reconstructed in the sagittal and coronal plane without contrast. There is some limitation to the study due to beam hardening artifact from the patient's bilateral total hip arthroplasties. FINDINGS: There is a nondisplaced periprosthetic fracture about the femoral stem of the left hip arthroplasty. No other fracture seen. No significant osteolysis bilaterally. No soft tissue masses. No focal fluid collections. Degenerative changes of the lumbar spine and sacroiliac joints. There is generalized edema of the thigh musculature circumferential about the left femur at the fracture line but no evidence of a discrete hematoma. [facility] Sushil Mcclellan MD - 01/27/2024 Interpreted By: Sushil Mcclellan, STUDY: CT PELVIS WO IV CONTRAST; ; 01/27/2024 12:14 pm INDICATION: Signs/Symptoms:fall/left hip pain/history of implant/unable to ambulate. COMPARISON: None. ACCESSION NUMBER(S): [id number] ORDERING CLINICIAN: DEZ HOOVER TECHNIQUE: Multiple thin-section axial images pelvis reconstructed in the sagittal and coronal plane without contrast. There is some limitation to the study due to beam hardening artifact from the patient's bilateral total hip arthroplasties. FINDINGS: There is a nondisplaced periprosthetic fracture about the femoral stem of the left hip arthroplasty. No other fracture seen. No significant osteolysis bilaterally. No soft tissue masses. No focal fluid collections. Degenerative changes of the lumbar spine and sacroiliac joints. There is generalized edema of the thigh musculature circumferential about the left femur at the fracture line but no evidence of a discrete hematoma. IMPRESSION: Nondisplaced periprosthetic fracture left femur adjacent to the femoral stem of the left total hip arthroplasty. MACRO: None Signed by: Sushil Mcclellan 01/27/2024 12:43 PM Dictation workstation: [id number] [facility] Work Phone: CT Pelvis WO contrastOrdered By: Sushil Mcclellan on 01-27-2024 [facility] Work Phone: Coagulation tissue factor in ducedon 01-27-2024 PT Coag (PPP) [Time] 12.6 s Normal 9.8-12.8 [facility] Comment on above: Performed By: #### 5 902-2 #### BRANDON Webb ([id number]) [facility] ([facility]) [address] [place] [address] Comprehensive metabolic 2000 panelon 01-27-2024 Albumin BCP dye [Mass/Vol] 3.8 g/dL 3.4 - 5.0 g/dL [facility] ALP [Catalytic activity/Vol] 43 U/L 33 - 136 U/L [facility] ALT With P-5'-P [Catalytic activity/Vol] 12 U/L 10 - 52 U/L [facility] Comment on above: Patients treated wit h Sulfasalazine may generate falsely decreased results for ALT. Anion gap [Moles/Vol] 10 mmol/L 10 - 20 mmol/L [facility] AST With P-5'-P [Catalytic activity/Vol] 17 U/L 9 - 39 U/L [facility] Bilirubin [Mass/Vol] 0.8 mg/dL 0.0 - 1 .2 mg/dL [facility] Calcium [Mass/Vol] 8.6 mg/dL 8.6 - 10. 3 mg/dL [facility] Chloride [Moles/Vol] 101 mmol/L 98 - 10 7 mmol/L [facility] CO2 [Moles/Vol] 27 mmol/L 21 - 32 mmol/L [facility] Creatinine [Mass/Vol] 0.71 mg/dL 0.50 - 1.30 mg/dL [facility] GFR/1.73 sq M.predicted among non-blacks MDRD (S/P/Bld) [Vol rate/Area] 90 mL/min/{1.73_m2} - PINF [facility] Comment on above: Calculations of sebastien mated GFR are performed using the 2020 CKD-EPI Study Refit equation without the race variable for the IDMS-Traceable creatinine methods. https://jasn.asnjournals.org/content//ASN.8717781 988 Glucose [Mass/Vol] 95 mg/dL 74 - 99 mg/dL [facility] Interpretation and review of laboratory results Abnormal [facility] Potassium [Moles/Vol] 4.5 mmol/L 3.5 - 5.3 mmol/L [facility] Protein [Mass/Vol] 6.7 g/dL 6.4 - 8.2 g/dL [facility] Sodium [Moles/Vol] 133 mmol/L Low 136 - 145 mmol/L [facility] Urea nitrogen [Mass/Vol] 15 mg/dL 6 - 23 mg/dL [facility] Albumin BCP dye [Mass/Vol] 3.8 g/dL Normal 3.4-5.0 [facility] Comment on above: Performed By: #### 2 4323-8 #### BRANDON Webb ([id number]) [facility] ([facility] [place] [facility]) [address] [place] [address] 21889 ALP [Catalytic activity/Vol] 43 U/L Normal 33-136 [facility] Comment on above: Performed By: #### 2 4323-8 #### BRANDON Webb ([id number]) [facility] ([facility] [place]) [address] [place] [address] 65752 ALT With P-5'-P [Catalytic activity/Vol] 12 U/L Normal 10-52 [facility] Comment on above: Result Comment: Eloisa ents treated with Sulfasalazine may generate falsely decreased results for ALT. Performed By: #### 2 4323-8 #### BRANDON Webb ([id number]) [facility] ([facility] [place]) [address] [place] [address] 96462 Anion gap [Moles/Vol] 10 mmol/L Normal 10-20 [facility] Comment on above: Performed By: #### 2 432-8 #### BRANDON Webb ([id number]) [facility] ([facility] [place]) [address] [place] [address] 41392 AST With P-5'-P [Catalytic activity/Vol] 17 U/L Normal 9-39 [facility] Comment on above: Performed By: #### 2 432-8 #### BRANDON Webb ([id number]) [facility] ([facility] [place]) [address] [place] [address] 23108 Bilirubin [Mass/Vol] 0.8 mg/dL Normal 0.0-1.2 [facility] Comment on above: Performed By: #### 2 4323-8 #### BRANDON Webb ([id number]) [facility] ([facility] [place]) [address] [place] [address] 59995 Calcium [Mass/Vol] 8.6 mg/dL Normal 8.6-10.3 [facility] Comment on above: Performed By: #### 2 4323-8 #### BRANDON Webb ([id number]) [facility] ([facility] [place]) [address] [place] [address] 78061 Chloride [Moles/Vol] 101 mmol/L Normal 98-107 [facility] Comment on above: Performed By: #### 2 4323-8 #### BRANDON Webb ([id number]) [facility] ([facility] [place]) [address] [place] [address] 00038 CO2 [Moles/Vol] 27 mmol/L Normal 21-32 [facility] Comment on above: Performed By: #### 2 4323-8 #### BRANDON Webb ([id number]) [facility] ([facility] [facility]) [address] [place] [address] 56246 Creatinine [Mass/Vol] 0.71 mg/dL Normal 0.50-1.30 [facility] Comment on above: Performed By: #### 2 4323-8 #### BRANDON Webb ([id number]) [facility] ([facility] [place]) [address] [place] [address] 63126 Glomerular filtration rate/1.73 sq M.predicted 90 mL/min/1.73m*2 Normal >60 [facility] Comment on above: Result Comment: Calc ulations of estimated GFR are performed using the 2020 CKD-EPI Study Refit equation without the race variable for the IDMS-Traceable creatinine methods. https://jasn.asnjournals.org/content//ASN.9748326 988 Performed By: #### 2 4323-8 #### BRANDON Webb ([id number]) [facility] ([facility] [place]) [address] [place] [address] 98952 Glucose [Mass/Vol] 95 mg/dL Normal 74-99 [facility] Comment on above: Performed By: #### 2 4323-8 #### BRANDON Webb ([id number]) [facility] ([facility] [place]) [address] [place] [address] 94719 Potassium [Moles/Vol] 4.5 mmol/L Normal 3.5-5.3 [facility] Comment on above: Performed By: #### 2 4323-8 #### BRANDON Webb ([id number]) [facility] ([facility] [place]) [address] [place] [address] 73391 Protein [Mass/Vol] 6.7 g/dL Normal 6.4-8.2 [facility] Comment on above: Performed By: #### 2 4323-8 #### BRANDON Webb ([id number]) [facility] ([facility]) [address] [place] [address] 50773 Sodium [Moles/Vol] 133 mmol/L Low 136-145 [facility] Comment on above: Performed By: #### 2 4323-8 #### BRANDON Webb ([id number]) [facility] ([facility]) [address] [place] [address] 32222 Urea nitrogen [Mass/Vol] 15 mg/dL Normal 6-23 [facility] Comment on above: Performed By: #### 2 4323-8 #### BRANDON Webb ([id number]) [facility] ([facility] [place] [facility]) [address] [place] [address] 22782 ECG 12-LEADon 01-27-2024 ECG 12-LEAD Ventricular Rate 67 Atrial Rate 67 P-R Interval 192 QRS Duration 90 Q-T Interval 392 QTC Calculation(Bazett) 414 P [facility] 30 R [facility] 39 T [facility] 34 QRS Count 10 Q Onset 220 P Onset 124 P Offset 185 T Offset 416 QTC Fredericia 407 Diagnosis Normal sinus rhythm Normal ECG No previous ECGs available See ED provider note for full interpretation and clinical correlation Confirmed by Daphne Hill ([id number]) on 01/28/2024 1:10:[address] [facility] No Panel Informationon 01-26 Radiology Study observation (narrative) [facility] Work Phone: A fracture through t he proximal left femur. No dislocation. Signed by: Lelia Mclaughlin 01/27/2024 3:15 PM Dictation workstation: [id number] MMODAL Interpreted By: Lelia Romo, STUDY: XR FEMUR LEFT 2+ VIEWS; XR PELVIS 1-2 VIEWS; 01/27/2024 3:04 pm INDICATION: Signs/Symptoms:fall. COMPARISON: None. ACCESSION NUMBER(S): [id number]; [id number] ORDERING CLINICIAN: DEZ HOOVER FINDINGS: Total bilateral hip arthroplasties.. There is a fracture through the proximal femur, inferior to the trochanters. No dislocation. Vascular calcification. Degenerative changes of the visualized left knee. Vascular calcification. MMODAL Lelia Mclaughlin MD - 01/27/2024 Interpreted By: Lelia Mclaughlin, STUDY: XR FEMUR LEFT 2+ VIEWS; XR PELVIS 1-2 VIEWS; 01/27/2024 3:04 pm INDICATION: Signs/Symptoms:fall. COMPARISON: None. ACCESSION NUMBER(S): [id number]; [id number] ORDERING CLINICIAN: DEZ HOOVER FINDINGS: Total bilateral hip arthroplasties.. There is a fracture through the proximal femur, inferior to the trochanters. No dislocation. Vascular calcification. Degenerative changes of the visualized left knee. Vascular calcification. IMPRESSION: A fracture through the proximal left femur. No dislocation. Signed by: Lelia Mclaughlin 01/27/2024 3:15 PM Dictation workstation: [id number] [facility] Work Phone: [facility] Work Phone: [facility] Radiology Study observation (narrative) [facility] Work Phone: Radiology Study observation (narrative) [facility] Work Phone: PT Coag (PPP) [Time]on 01-26 INR Coag (PPP) [Relative time] 1.1 {INR} 0.9 - 1.1 [facility] Interpretation and review of laboratory results Normal [facility] INR Coag (PPP) [Relative time] 1.1 Normal 0.9-1.1 [facility] Comment on above: Performed By: #### 5 902-2 #### BRANDON Webb ([id number]) [facility] ([facility]) [address] [place] [address] 58745 Protime-INRon 01-27-2024 PT Coag (PPP) [Time] 12.6 s [facility] VERAB/VERIFY ABORHon 024 ABO group Nom (Bld) A Normal [facility] Comment on above: Order Comment: Thi s is for confirming/verifying history of ABORh on file for transfusion of blood products. If this is not for transfusion, please order an ABO/RH [[id number]]. If you have any questions or unsure what to order, please call the blood bank. Performed By: #### V ERAB #### CARIN Webb ([id number]) [facility] ([facility]) [address] [place] [address] D Ag Ql (Bld) Positive Normal [facility] Comment on above: Order Comment: Thi s is for confirming/verifying history of ABORh on file for transfusion of blood products. If this is not for transfusion, please order an ABO/RH [[id number]]. If you have any questions or unsure what to order, please call the blood bank. Performed By: #### V ERAB #### CARIN Webb ([id number]) [facility] ([facility]) [address] [place] [address] XR CHEST 1 VIEWon 01-27-2024 XR CHEST 1 VIEW Interpreted By: Nevaeh Goel and Ohs Zachary STUDY: XR CHEST 1 VIEW; 01/27/2024 8:52 pm INDICATION: Signs/Symptoms:preop clearance. COMPARISON: None. ACCESSION NUMBER(S): [id number] ORDERING CLINICIAN: JADEN GONZALEZ FINDINGS: AP radiograph of the chest was provided. MEDICAL DEVICES: None. CARDIOMEDIASTINAL SILHOUETTE: Cardiomediastinal silhouette is normal in size and configuration. LUNGS: Perihilar peribronchial thickening. Strandy bibasilar opacities, consistent with atelectasis. Additional artifactual bibasilar densities related to superimposed soft tissue overlying the lower extremities. No pneumothorax. Small left pleural effusion. ABDOMEN: No remarkable upper abdominal findings. BONES: Remote fractures of the posterolateral 6th and 7th ribs. IMPRESSION: 1. Mild bibasilar atelectasis. I personally reviewed the images/study and I agree with the findings as stated by Dr. Song Lozoya. This study was interpreted at [facility], [place], [place]. MACRO: None Signed by: Nevaeh Lind 01/28/2024 12:36 AM Dictation workstation: [id number] [facility] XR FEMUR LEFT 2+ VIEWSon XR FEMUR LEFT 2+ VIEWS Interpreted By: Lelia Mclaughlin, STUDY: XR FEMUR LEFT 2+ VIEWS; XR PELVIS 1-2 VIEWS; 01/27/2024 3:04 pm INDICATION: Signs/Symptoms:fall. COMPARISON: None. ACCESSION NUMBER(S): [id number]; [id number] ORDERING CLINICIAN: DEZ HOOVER FINDINGS: Total bilateral hip arthroplasties.. There is a fracture through the proximal femur, inferior to the trochanters. No dislocation. Vascular calcification. Degenerative changes of the visualized left knee. Vascular calcification. IMPRESSION: A fracture through the proximal left femur. No dislocation. Signed by: Lelia Mclaughlin 01/27/2024 3:15 PM Dictation workstation: [id number] [facility] XR HIP LEFT WITH PELVIS WHEN PERFORMED 2 OR 3 VIEWSon 01-27-2024 XR HIP LEFT WITH PELVIS WHEN PERFORMED 2 OR 3 VIEWS Interpreted By: Nevaeh Lind and Ohs Zachary STUDY: XR HIP LEFT WITH PELVIS WHEN PERFORMED 2 OR 3 VIEWS; XR KNEE LEFT 1-2 VIEWS 01/27/2024 8:52 pm INDICATION: Signs/Symptoms:femur fracture COMPARISON: Pelvic radiograph 01/27/2024. ACCESSION NUMBER(S): [id number]; [id number] ORDERING CLINICIAN: JADEN GONZALEZ TECHNIQUE: AP view of the pelvis and left hip. FINDINGS: Status post bilateral hip arthroplasty. Oblique subtrochanteric periprosthetic fracture with 0.2 cm lateral displacement, not significantly changed in alignment. No other acute fracture or dislocation. No significant lucency around the hardware to suggest chronic loosening. Severe calcified atherosclerotic disease of the bilateral lower extremity vessels. The overlying soft tissues unremarkable. The visualized pelvic structures unremarkable. Moderate tricompartment degenerative changes of the left knee with osteophytosis, lateral greater than medial joint space narrowing and subchondral sclerosis. Small suprapatellar joint effusion. No acute fracture or malalignment of the knee. IMPRESSION: 1. Minimally displaced subtrochanteric periprosthetic fracture, not significantly changed in alignment. 2. 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 I personally reviewed the images/study and I agree with the findings as stated by Dr. Song Lozoya. This study was interpreted at [place], [place]. MACRO: None Signed by: Nevaeh Lind 01/28/2024 12:34 AM Dictation workstation: [id number] [facility] XR KNEE LEFT 1-2 VIEWSon XR KNEE LEFT 1-2 VIEWS Interpreted By: Nevaeh Lind and Ohs Zachary STUDY: XR HIP LEFT WITH PELVIS WHEN PERFORMED 2 OR 3 VIEWS; XR KNEE LEFT 1-2 VIEWS 01/27/2024 8:52 pm INDICATION: Signs/Symptoms:femur fracture COMPARISON: Pelvic radiograph 01/27/2024. ACCESSION NUMBER(S): [id number]; [id number] ORDERING CLINICIAN: JADEN GONZALEZ TECHNIQUE: AP view of the pelvis and left hip. FINDINGS: Status post bilateral hip arthroplasty. Oblique subtrochanteric periprosthetic fracture with 0.2 cm lateral displacement, not significantly changed in alignment. No other acute fracture or dislocation. No significant lucency around the hardware to suggest chronic loosening. Severe calcified atherosclerotic disease of the bilateral lower extremity vessels. The overlying soft tissues unremarkable. The visualized pelvic structures unremarkable. Moderate tricompartment degenerative changes of the left knee with osteophytosis, lateral greater than medial joint space narrowing and subchondral sclerosis. Small suprapatellar joint effusion. No acute fracture or malalignment of the knee. IMPRESSION: 1. Minimally displaced subtrochanteric periprosthetic fracture, not significantly changed in alignment. 2. 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 I personally reviewed the images/study and I agree with the findings as stated by Dr. Song Lozoya. This study was interpreted at [place], [place]. MACRO: None Signed by: Nevaeh Lind 01/28/2024 12:34 AM Dictation workstation: [id number] [facility] XR PELVIS 1-2 VIEWSon 2023 XR PELVIS 1-2 VIEWS Interpreted By: Lelia Romo, STUDY: XR FEMUR LEFT 2+ VIEWS; XR PELVIS 1-2 VIEWS; 01/27/2024 3:04 pm INDICATION: Signs/Symptoms:fall. COMPARISON: None. ACCESSION NUMBER(S): [id number]; [id number] ORDERING CLINICIAN: DEZ HOOVER FINDINGS: Total bilateral hip arthroplasties.. There is a fracture through the proximal femur, inferior to the trochanters. No dislocation. Vascular calcification. Degenerative changes of the visualized left knee. Vascular calcification. IMPRESSION: A fracture through the proximal left femur. No dislocation. Signed by: Lelia Mclaughlin 01/27/2024 3:15 PM Dictation workstation: [id number] [facility] 01-08-2024 36 Appointment noted. 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 Has had trouble with drooling since. Will have trouble swallowing if he is eating too fast, will regurgitate. Ongoing since April. R: No appointments with Dr. Fallon until February, scheduled with Esme Denton NP 01/15 at 10:40a. AWV with Dr. Fallon scheduled 03/11 at 1:40p. Patient states he has medicare A/B and a new supplement. Will bring insurance information to appointment. Patient understands care advice. No further needs at this time. Patient instructed to call back with new or worsening symptoms. Reason for Disposition Swallowing difficulty is a chronic symptom (recurrent or ongoing AND present > 4 weeks) All other mouth symptoms (Exceptions: Dry mouth from not drinking enough liquids, chapped lips.) Protocols used: Swallowing Ymgjpjkxcf-MTCNQ-ER, Mouth Uwzdseny-PNLTY-IW [facility] CNOVon 01-02-2024 CNOV Office Visit (WALKWA ) KATHYPATRICE CHEN ([id number]) 1940 M [place] Date Time Provider Department 01/02/24 10:45 AM TOYA JACOBSEN During your visit today, we recorded the following information about you: Temperature Pulse Respiration Blood pressure 97.4 degrees 56/minute 18/minute 159/74 Weight Height 93.6 kg 1.803 m Toya Jacobsen PA-C 01/02/2024 11:35 AM Signed 01/02/2024 Patient presents with: Piece of Q-tip in right ear: PT was taking a shower and cleaned ears with a q-tip, pt states that a q-tip broke off in right ear, SUBJECTIVE: This is a 83 year old that is here today for concern for Q-tip head stuck in his right ear. He cleaned his ears with q-tips, and then noted the head of the q-tipwas missing. He is concerned the tip is in the ear canal. No dizziness, vertigo, changes in hearing, or drainage. He denies any recent swimming or use of q-tips, ear plugs, or ear buds. No recent sinus, allergy or URI symptoms. No cough, n/v/d, ALVARADO, or rash. Denies fever, chills, sweats, or fatigue. Patient denies wheezing, shortness of breath, increased WOB, or chest pain. No other URI symptoms. No other sick symptoms. Pain on scale of 0-10 with 0 being no pain and 10 being greatest pain: 0 Nothing makes the symptoms better. Nothing makes them worse. Self-treatment:. none The severity is mild and the symptoms are not improving. The patient did not have a similar problem in the last 3 months. The patient did not take any antibiotics in the last 3 months. Barriers to learning: none. Reviewed meds, OTCs, herbals or supplements. Reviewed allergies, medications, social history, and past medical history. PAST MEDICAL HISTORY No date: Anemia No date: Benign prostate hyperplasia No date: Black stool No date: Cataract No date: Diverticulosis No date: Dysphagia No date: Esophagitis No date: FHx: colon cancer Comment: Brother No date: Gastritis with bleeding No date: Hiatal hernia No date: History of colon polyps No date: Rectal bleeding No date: Rheumatoid arthritis(714.0) ALLERGIES Morphine MEDICATIONS Current Outpatient Medications Medication Sig metoprolol succinate ER (TOPROL XL) 100 mg Take by mouth. lisinopril (ZESTRIL) 20 mg tablet Take by mouth q 24 HR. ZINC ORAL Take by mouth. cholecalciferol, vitamin D3, (VITAMIN D3 ORAL) Take by mouth. multivit-min/ferrous fumarate (MULTI VITAMIN ORAL) Take by mouth. Pt takes vitamins through a smoothie, aspirin, enteric coated (ASPIRIN, ENTERIC COATED) 81 mg EC tablet aspirin 81 mg tablet aspirin, enteric coated (ASPIRIN, ENTERIC COATED) 81 mg EC tablet Take by mouth. (Patient not taking: Reported on 09/26/2022) Cyanocobalamin 250 mcg tab Vitamin B-12 25 mcg tablet Vitamin E Acetate, Bulk, 50 % powd Take by mouth. (Patient not taking: Reported on 09/26/2022) Echinacea purpurea,angustif xt (ECHINACEA PURP XT,HUMZA RT EXT) 125 mg cap echinacea 125 mg capsule No current facility-administered medications for this visit. Medications and allergies reviewed by this provider. SOCIAL HISTORY Social History Tobacco Use Smoking status: Former Current packs/day: 0.00 Average packs/day: 3.0 packs/day for 15.0 years (45.0 ttl pk-yrs) Types: Cigarettes Start date: 12/09/1974 Quit date: 12/09/1989 Years since quittin.0 Smokeless tobacco: Never Substance Use Topics Alcohol use: Yes Comment: Occasionally Drug use: Never REVIEW OF SYSTEMS Review of Systems ROS: constitutional-neg, HENT-ear FB, wax, Eyes- neg, heart-neg, respiratory-neg, skin-neg, lymph-neg, Allergy- neg, neuro-neg, - All systems neg except as noted above in HPI. OBJECTIVE: Pulse (!) 56 Temp 36.3 ?C (97.4 ?F) (Oral) Resp 18 Ht 180.3 cm (5' 11) Wt 93.6 kg (206 lb 3.9 oz) SpO2 100% BMI 28.76 kg/m? . Vital signs reviewed by this provider. Physical Exam Vitals reviewed. Constitutional: General: He is not in acute distress. Appearance: Normal appearance. He is normal weight. He is not ill-appearing, toxic-appearing or diaphoretic. HENT: Head: Normocephalic and atraumatic. Right Ear: There is impacted cerumen. No foreign body. Left Ear: There is impacted cerumen. No foreign body. Ears: Comments: -Ears: No FB noted to the right or left ear canals. Bilateral ears- bilateral cerumen impaction Wax removed with water irrigation by the [place] ARNOLD Tolerated well Ear exam post wax removal: Right and left ears- TM pearly menendez with light reflex. Ear canal not red or swollen. No tragus tenderness to pumping. No pain with manipulation of the auricle. No mastoid or preauricular tenderness, edema, or erythema. Lymphadenopathy: Head: Right side of head: No preauricular or posterior auricular adenopathy. Left side of head: No preauricular or posterior auricular adenopathy. Cervical: No cervical adenopathy. Skin: (more content not included)... Normal [facility] Progress Noteon 03-20-2023 Progress Note Per [place] insurance med adherence report, patient is at risk for medication adherence on Lisinopril 20 mg. Per chart review, medication was discontinued - 10/26/22 office note: Possible side effects to lisinopril vs postural hypotension. Stop lisinopril, start amlodipine. Monitor BP at home. Discontinued by: SITA Cotto CNP on 10/26/2022 12:04 Reason: Side effects Normal [facility] CNOVon 02-19-2023 CNOV Office Visit (EXPKEN ) PATRICE JOEL ([id number]) 1940 M [place] Date Time Provider Department 02/19/23 11:15 AM JOE RODRIGUEZ EXPKEN During your visit today, we recorded the following information about you: Temperature Pulse Respiration Blood pressure 97.8 degrees 70/minute 16/minute 120/64 Weight Height 98.9 kg 1.803 m Joe Rodriguez APRN.COPY WRITER 02/19/2023 12:01 PM Signed Subjective Patrice Joel is a 82 year old year old who presents to express care today with complaint of tenderness to left index finger. Reports working with a morton in his yard, and poked his finger with a thorn and is concerned for possible infection. Reports some redness, warmth and swelling. Denies any associated pain or bony tenderness. Symptoms present for the last 2 days. Unsure of last tetanus shot. Also presents to clinic with complaint of wound check to face. Had mole removed 1 week prior and is requesting new bandage be placed on site if possible. Reports no concerns for infection of complications. Has been keeping site clean and dry. Aside from symptoms as described above, patient has no other complaints at this time. Review of Systems Constitutional: Positive for activity change. Negative for appetite change, chills, diaphoresis, fatigue and fever. Musculoskeletal: Negative for myalgias. Skin: Positive for color change and wound. Allergic/Immunologic: Negative for environmental allergies, food allergies and immunocompromised state. Psychiatric/Behavioral: Negative for agitation and confusion. ALLERGIES Allergen Reactions Morphine Itching, Other: See Comments convulsions Current Outpatient Medications on File Prior to Visit Medication Sig cholecalciferol, vitamin D3, (VITAMIN D3 ORAL) Take by mouth. multivit-min/ferrous fumarate (MULTI VITAMIN ORAL) Take by mouth. Pt takes vitamins through a smoothie, Cyanocobalamin 250 mcg tab Vitamin B-12 25 mcg tablet lisinopril (ZESTRIL) 20 mg tablet Take by mouth q 24 HR. ZINC ORAL Take by mouth. aspirin, enteric coated (ASPIRIN, ENTERIC COATED) 81 mg EC tablet aspirin 81 mg tablet aspirin, enteric coated (ASPIRIN, ENTERIC COATED) 81 mg EC tablet Take by mouth. (Patient not taking: Reported on 09/26/2022) Vitamin E Acetate, Bulk, 50 % powd Take by mouth. (Patient not taking: Reported on 09/26/2022) Echinacea purpurea,angustif xt (ECHINACEA PURP XT,HUMZA RT EXT) 125 mg cap echinacea 125 mg capsule No current facility-administered medications on file prior to visit. 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 Physical Exam Vitals and nursing note reviewed. Constitutional: General: He is not in acute distress. Appearance: Normal appearance. He is not ill-appearing, toxic-appearing or diaphoretic. HENT: Head: Normocephalic and atraumatic. Comments: Patient has actively healing surgical site noted to left cheek as depicted in graphic. Area measures approximately 2 cm in diameter. No erythema, exudate, or sutures are in place. No warmth, tenderness, or pustules noted. No soft tissue swelling noted to face present. Wound appears to be actively healing with no complications. Musculoskeletal: Left hand: Swelling present. No deformity, lacerations, tenderness or bony tenderness. Normal range of motion. Normal strength. Normal sensation. There is no disruption of two-point discrimination. Normal capillary refill. Hands: Comments: Left index finger- patient has facial abrasion noted to palmar surface of left hand more specifically left index finger as depicted in graphic. There is some localized erythema as well as tissue induration but patient does not have any pain to palpation. Symptoms localized to area noted in graphic. No abscess or purulent exudate is noted on exam. Patient maintains full range of motion in affected digit and there is no bony tenderness present. Dorsal surface of digit is unaffected and normal in appearance when compared to unaffected first, third, fourth, and fifth digits. Cap refill in affected digit less than 3 seconds. No visible or palpable foreign body noted on exam. Skin: General: Skin is warm and dry. Findings: Erythema present. Neurological: General: (more content not included)... Normal [facility] Free T4 [Mass/Vol]on 023 Free T4 Dialysis [Mass/Vol] 1.24 ng/dL 0.78 - 2.19 ng/dL [facility] Interpretation and review of laboratory results Normal [facility] T3on 09-06-2022 T3 [Mass/Vol] 137 ng/dL 97 - 169 ng/dL [facility] T3 [Mass/Vol]on 09-06-2022 Interpretation and review of laboratory results Normal [facility] TSHon 09-06-2022 TSH Qn 0.284 m[IU]/L Low [facility] TSH Qnon 09-06-2022 Interpretation and review of laboratory results Abnormal [facility] Lipid 1996 panelon 3 Cholesterol [Mass/Vol] 184 mg/dL NINF - 200 mg/dL [facility] Cholesterol in HDL [Mass/Vol] 60 mg/dL 40 - 60 mg/dL [facility] Cholesterol in LDL [Mass/Vol] 113 mg/dL High 0 - <100 [facility] Cholesterol.total/Ch olesterol in HDL [Mass ratio] 3 {ratio} [facility] Comment on above: Ref Range: < 3 Low Risk for CHD 3-6 Mod Risk for CHD > 6 High Risk for CHD Interpretation and review of laboratory results Abnormal [facility] Triglyceride [Mass/Vol] 56 mg/dL NINF - 150 [facility] Qn 0.432 m[IU]/L Low [facility] TSH Qnon 08-09-2022 Interpretation and review of laboratory results Abnormal [facility] CR Knee 3 Views Lefton 11-30 CR Knee 3 Views Left Patient Name: PATRICE JOHNSON Diagnostic Radiology ACCESSION EXAM DATE/TIME PROCEDURE ORDERING PROVIDER [id number] 11/30/2021 14:36 EDT CR Knee 3 Views Left [facility] CPT code 82153 Reason For Exam (CR Knee 3 Views Left) Unspecified injury of left lower leg, initial encounter Report LEFT KNEE CLINICAL INDICATION: Pain AP, lateral, and patellar plain film views of the left knee were obtained. COMPARISON: None FINDINGS: No acute displaced fracture or dislocation. Moderate joint effusion. Tricompartmental joint space narrowing and osteophytic spurring, most significantly in the patellofemoral compartment. Vascular atherosclerotic calcific locations. IMPRESSION: No acute displaced fracture or dislocation. Moderate joint effusion. 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 Report Dictated on Final Dictated: 12/02/2021 2:08 pm Dictating Physician: MD SHORT NEIL Signed Date and Time: 12/02/2021 2:09 pm Signed by: MD SHORT NEIL Transcribed Date and Time: 12/02/2021 2:08 Normal [facility] CR Foot Complete 3+ Views [facility] 01-30-2020 CR Foot Complete 3+ Views Right Patient Name: PATRICE JOEL Diagnostic Radiology Exam Date/Time 01/30/2020 13:48:35 EDT Exam CR Foot Complete 3+ Views Right Ordering Physician MD NAIR JESSE Accession Number [id number] CPT4 Codes 04528 () Reason For Exam Injury Report Examination: Right foot Clinical Indication: Injury, pain Comparison: None Findings: Three views right foot demonstrate transverse fractures along the neck of the second, third and fourth metatarsals. Mild osteopenia. No other fracture is seen. Mild tibiotalar joint space narrowing with tiny osteophyte. Small osteophyte along the dorsum of the navicular. Gross preservation of the tarsal arch. Calcaneal enthesophyte/bone spur. Midfoot demonstrates mild joint space narrowing. Moderate first metatarsal phalangeal joint space narrowing with small osteophytes. Flexion of the interphalangeal joints on lateral projection. Mild soft tissue swelling along the dorsal forefoot. Impression: Transverse nondisplaced distal metaphysis fractures of the second, third and fourth metatarsals. Osteopenia. Report Dictated on Workstation: [id number] Final Dictating Physician: MD BARROS ANTHONY J Signed Date and Time: 01/30/2020 2:15 pm Signed by: MD BARROS ANTHONY J Transcribed Date and Time: 01/30/2020 2:16 Normal [facility] XR FOOT RIGHT (MIN 3 VIEWS)o n 01-30-2020 Patient Name: PATRICE KEEN ---Diagnostic Radiology--- Exam Date/Time 01/30/2020 13:48:35 EDT Exam CR Foot Complete 3+ Views Right Ordering Physician MD NAIR JESSE Accession Number [id number] CPT4 Codes 09534 () Reason For Exam Injury Report Examination: Right foot Clinical Indication: Injury, pain Comparison: None Findings: Three views right foot demonstrate transverse fractures along the neck of the second, third and fourth metatarsals. Mild osteopenia. No other fracture is seen. Mild tibiotalar joint space narrowing with tiny osteophyte. Small osteophyte along the dorsum of the navicular. Gross preservation of the tarsal arch. Calcaneal enthesophyte/bone spur. Midfoot demonstrates mild joint space narrowing. Moderate first metatarsal phalangeal joint space narrowing with small osteophytes. Flexion of the interphalangeal joints on lateral projection. Mild soft tissue swelling along the dorsal forefoot. Impression: Transverse nondisplaced distal metaphysis fractures of the second, third and fourth metatarsals. Osteopenia. Report Dictated on Workstation: [employer] --- Final --- Dictating Physician: MD BARROS ANTHONY J Signed Date and Time: 01/30/2020 2:15 pm Signed by: MD BARROS ANTHONY J Transcribed Date and Time: 01/30/2020 2:16 [facility] [place], [place], [facility] Incoming Radiology Results From [facility] - 01/30/2020 2:16 PM EDT Patient Name: PATRICE JOEL ---Diagnostic Radiology--- Exam Date/Time 01/30/2020 13:48:35 EDT Exam CR Foot Complete 3+ Views Right Ordering Physician MD NAIR JESSE Accession Number [id number] CPT4 Codes 16368 () Reason For Exam Injury Report Examination: Right foot Clinical Indication: Injury, pain Comparison: None Findings: Three views right foot demonstrate transverse fractures along the neck of the second, third and fourth metatarsals. Mild osteopenia. No other fracture is seen. Mild tibiotalar joint space narrowing with tiny osteophyte. Small osteophyte along the dorsum of the navicular. Gross preservation of the tarsal arch. Calcaneal enthesophyte/bone spur. Midfoot demonstrates mild joint space narrowing. Moderate first metatarsal phalangeal joint space narrowing with small osteophytes. Flexion of the interphalangeal joints on lateral projection. Mild soft tissue swelling along the dorsal forefoot. Impression: Transverse nondisplaced distal metaphysis fractures of the second, third and fourth metatarsals. Osteopenia. Report Dictated on Workstation: [employer] --- Final --- Dictating Physician: MD BARROS ANTHONY J Signed Date and Time: 01/30/2020 2:15 pm Signed by: MD BARROS ANTHONY J Transcribed Date and Time: 01/30/2020 2:16 [place] CNTHERAPYon 12-05-2017 CNTHERAPY OT/PT/Speech Visit (PTMDRG) ----[facility][id number][facility] 1940 [facility] Department12/05/17 12:45 PM TRINI DEMPSEY (PT) PTMDRGEncounter Number: [id number] Time Provider Department [place]12/05/2017 12:45 PM [id number], JUDITH (PT)PTMDRG [facility] CReason for Visit: PT Discharge [752]Visit Diagnosis:Decreased ROM of lumbar spine [M53.86]Allergies As of Date: 12/05/2017 Noted Allergy ReactionMORPHINE 12/09/2012 9 - Itching 14 - Other: See Comments Comments: convulsionsDate Reviewed: 11/07/2017Reviewed by: June Reynolds CT - Fully AssessedPrescriptions as of 12/05/2017 Sig: OTC NUTRITIONAL SUPPLEMENT melaluca nutritional suppleme* MANGANESE ORAL Take by mouth. ALEVE ORAL Take by mouth. KRILL OIL ORAL Take by mouth. VITAMIN B-12 ORAL Take by mouth. OTC PRODUCT Butchers broom, herbal for sp* * CHOLECALCIFEROL (VITAMIN D3) *Progress Notes:Trini Dempsey, PT 12/05/2017 5:10 PM SignedEpisode Visit Count: 6Therapist That Will Oversee The Plan Of Care: Sherri DempseyStart of Care Date: 11/14/17Onset Date: 08/15/17Plan of Care Certification Date: 11/14/17Patient Identified by Name and Date of : YesREHABILITATION AND SPORTS THERAPYPHYSICAL THERAPY DISCONTINUANCE OF CAREPLAN OF CARE UPDATE:Assessment: Patrice Joel is discontinued from Physical Therapy services dueto goal achievement. and Patient/Client declining further intervention. Patientis independent with HEP and feels confident he can continue with same forfurther gains in strength and flexibility. Patient was seen for 6 visits fromStart of Care Date: 11/14/17 to 12/05/2017 and treatment included: Therapeuticexercise and Patient/Family/Caregiver Education.Goals for Episode of Care: created on 11/14/17 through 01/15/18Independent in home exercises--MET.Patient will decrease pain to 2/10 with functional activities to allowpatient to improve standing tolerance for ADLs--METRestore pain-free lumbar ROM to trunk sidebending and rotation to allowfor greater ease of trunk movements during ADL--NOT MET, still has pain with ROMSit 2 hours and be able to stand with less difficulty withoutpain/symptoms to allow for improved transitional movements aftersitting--Improving but NOT METPatient will increase strength of hip extension R/L to 4+/5 to allow forimproved performance of ADLs--METPatient will increase flexibility of B hamstrings to -35 degrees toimprove ability to maintain proper posture, restore normal mechanics anddecrease pain--Improved but NOT METImprove Modified Oswestry Pain Questionnaire (LBP) by 6 points (12%) to indicatea Minimal Clinical Important Difference--NOT METPatient will improve his/her AM-PAC T-scale score by 4 points to indicatea Minimal Clinical Important Difference--METImprove 30 sec chair stand test to 11 reps which is at age adjusted normsfor patient's age--METImprove tandem stance R/left to 10 secs with decreased hip/upper extremityStrategies--METPati ent will be able to get down to the ground and back up again withoutexternal support--NOT METG CODE REPORTINGBased on clinical assessment and the score on the AM-PAC Scale ScoreAssessment Tool, the G code and corresponding severity modifiers aredocumented below.Evaluation: 11/14/2017Current Status: Mobility: Walking and Moving Around: G8978 CJ 20-39%impairedGoal Status: Mobility: Walking and Moving Around: G8979 CI 1-19%impairedDischarge: 12/05/2017Goal Status: Mobility: Walking and Moving Around: G8979 CI 1-19% impairedDischarge: Mobility: Walking and Moving Around: G8980 CI 1-19% impairedSUBJECTIVE: . Patient reports less back pain and improved flexibility.Pain Score: 0/10Post Treatment Pain Score: No ChangeOBJECTIVE MEASURES WITH LEVEL OF FUNCTION:Lumbar Spine AROMLumbar Flexion: Moderate limitation (fingertips to mid menchaca, tightness in backand hams)Lumbar Extension: Minimal limitationLumbar R Side-Bend: Minimal limitation;Increased painLumbar L Side-Bend: Minimal limitation;Increased painLumbar R Rotation: Minimal limitationLumbar L Rotation: Minimal limitationLE AROMR Hip Flexion: 111 DegreesL Hip Flexion: 103 DegreesLE FlexibilityR Hamstring Flexibility: -41L Hamstring Flexibility: -4130 Second Sit to Stand Test (reps): 11 repsTREATMENT:Therapeutic Exercise:1: Reassessment of progress toward goals2: Review of HEP3: 30 sec chair stand test4: Review of alternate ex for hip flexor stretch as patiients bed at home is toolow for over the edge of bed stretchSkilled Intervention: Skilled judgment was provided in selection of appropriateinterventions.Mc iometric measurements, MMTBilling:Paul: Therapeutic Exercise (77859): 1:1 time: 39 minutes (3 units: 38-52mins)Total time: 39 minutesTrini Dempsey PT Normal [facility] PROGRESSon 12-05-2017 Protein HNO ID: [id number] thor: Trini OrantesPt) Kishor: (none)Author Type: Physical TherapistType: Progress NotesFiled: 12/05/2017 5:10 PMNote Text:Episode Visit Count: 6Therapist That Will Oversee The Plan Of Care: Sherri Wick of Care Date: 11/14/17Onset Date: 08/15/17Plan of Care Certification Date: 11/14/17Patient Identified by Name and Date of : YesREHABILITATION AND SPORTS THERAPYPHYSICAL THERAPY DISCONTINUANCE OF CAREPLAN OF CARE UPDATE:Assessment: Patrice Calderónakira is discontinued from Physical Therapy servicesdue to goal achievement. and Patient/Client declining furtherintervention. Patient is independent with HEP and feels confident he cancontinue with same for further gains in strength and flexibility. Patientwas seen for 6 visits from Start of Care Date: 11/14/17 to 12/05/2017 andtreatment included: Therapeutic exercise and Patient/Family/CaregiverEduc ation.Goals for Episode of Care: created on 11/14/17 through 01/15/18Independent in home exercises--MET.Patient will decrease pain to 2/10 with functional activities to allowpatient to improve standing tolerance for ADLs--METRestore pain-free lumbar ROM to trunk sidebending and rotation to allowfor greater ease of trunk movements during ADL--NOT MET, still has painwith ROMSit 2 hours and be able to stand with less difficulty withoutpain/symptoms to allow for improved transitional movements aftersitting--Improving but NOT METPatient will increase strength of hip extension R/L to 4+/5 to allow forimproved performance of ADLs--METPatient will increase flexibility of B hamstrings to -35 degrees toimprove ability to maintain proper posture, restore normal mechanics anddecrease pain--Improved but NOT METImprove Modified Oswestry Pain Questionnaire (LBP) by 6 points (12%) toindicate a Minimal Clinical Important Difference--NOT METPatient will improve his/her AM-PAC T-scale score by 4 points to indicatea Minimal Clinical Important Difference--METImprove 30 sec chair stand test to 11 reps which is at age adjusted normsfor patient's age--METImprove tandem stance R/left to 10 secs with decreased hip/upper extremityStrategies--METPati ent will be able to get down to the ground and back up again withoutexternal support--NOT METG CODE REPORTINGBased on clinical assessment and the score on the AM-PAC Scale ScoreAssessment Tool, the G code and corresponding severity modifiers aredocumented below.Evaluation: 11/14/2017Current Status: Mobility: Walking and Moving Around: G8978 CJ 20-39%impairedGoal Status: Mobility: Walking and Moving Around: G8979 CI 1-19%impairedDischarge: 12/05/2017Goal Status: Mobility: Walking and Moving Around: G8979 CI 1-19% impairedDischarge: Mobility: Walking and Moving Around: G8980 CI 1-19% impairedSUBJECTIVE: . Patient reports less back pain and improved flexibility.Pain Score: 0/10Post Treatment Pain Score: No ChangeOBJECTIVE MEASURES WITH LEVEL OF FUNCTION:Lumbar Spine AROMLumbar Flexion: Moderate limitation (fingertips to mid menchaca, tightness inback and hams)Lumbar Extension: Minimal limitationLumbar R Side-Bend: Minimal limitation;Increased painLumbar L Side-Bend: Minimal limitation;Increased painLumbar R Rotation: Minimal limitationLumbar L Rotation: Minimal limitationLE AROMR Hip Flexion: 111 DegreesL Hip Flexion: 103 DegreesLE FlexibilityR Hamstring Flexibility: -41L Hamstring Flexibility: -4130 Second Sit to Stand Test (reps): 11 repsTREATMENT:Therapeutic Exercise:1: Reassessment of progress toward goals2: Review of HEP3: 30 sec chair stand test4: Review of alternate ex for hip flexor stretch as patiients bed at homeis too low for over the edge of bed stretchSkilled Intervention: Skilled judgment was provided in selection ofappropriate interventions.Goniometric measurements, MMTBilling:Paul: Therapeutic Exercise (83055): 1:1 time: 39 minutes (3 units:38-52 mins)Total time: 39 minutesTrini Dempsey PT Normal [facility] CNTHERAPYon 12-03-2017 CNTHERAPY OT/PT/Speech Visit (PTMDRG) ----PATRICE JOEL ([id number]) 1940 [facility] Time Provider Department12/03/17 12:45 PM TRINI DEMPSEY (PT) PTMDRGEncounter Number: [id number] Time Provider Department [place]12/03/2017 12:45 PM [id number], JUDITH (PT)PTMDRG [facility] CReason for Visit: Physical Therapy [503]Visit Diagnosis:Decreased ROM of lumbar spine [M53.86]Allergies As of Date: 12/03/2017 Noted Allergy ReactionMORPHINE 12/09/2012 9 - Itching 14 - Other: See Comments Comments: convulsionsDate Reviewed: 11/07/2017Reviewed by: June Reynolds CT - Fully AssessedPrescriptions as of 12/03/2017 Sig: OTC NUTRITIONAL SUPPLEMENT melaluca nutritional suppleme* MANGANESE ORAL Take by mouth. ALEVE ORAL Take by mouth. KRILL OIL ORAL Take by mouth. VITAMIN B-12 ORAL Take by mouth. OTC PRODUCT Butchers broom, herbal for sp* * CHOLECALCIFEROL (VITAMIN D3) *Progress Notes:Trini Dempsey PT 12/03/2017 5:48 PM SignedEpisode Visit Count: 5Therapist That Will Oversee The Plan Of Care: Sherri Postart of Care Date: 11/14/17Onset Date: 08/15/17Plan of Care Certification Date: 11/14/17Patient Identified by Name and Date of : YesREHABILITATION AND SPORTS THERAPYPHYSICAL THERAPY TREATMENT NOTEASSESSMENT: Patrice Joel demonstrated difficulty with getting down to floorand back up again. Patient requires moderate use of B upper extremities to getback up. Making good progress with other exercises. Improved B hamstringflexibility. The patient will continue to benefit from continued skilledphysical therapy for progressive strengthening and flexibility.PLAN FOR NEXT VISIT:Reassess progress toward goalsSUBJECTIVE: Pt reports his back is stiff and tight this morning after doing hiptheraband ex.Pain Score: 5/10Pain Location: BackDescription: Stiffness;TightnessFrequency : IntermittentPost Treatment Pain Score: No ChangeOBJECTIVE MEASURES WITH LEVEL OF FUNCTION:LE FlexibilityR Hamstring Flexibility: -41L Hamstring Flexibility: -35TREATMENT:Therapeutic Exercise:1: Nu-step, seat 15, arms14, L 5 x 5 minutes 10 sec ab brace every 30 seconds2: Nauruan Ball: Lat tilts and circles cw/ccw x 103: : Ab brace with alternate shld flex/ext x 104: : Ab brace with alt marching x 105: Supine PPT x 106: Sidelying clamshells with Ab brace 5 sec x 10 R/L7: Lunges R/L x 10 each with B ue support8: TG 34 degrees, partial squats 3 x 109: Sitting modified ER stretch with foot on stool, 5 sec x 5 R/L12: Supine hip flexor stretch off edge of bed 20 sec x 3 R/LSkilled Intervention: Patient was educated in proper exercise technique andpurpose for exercises.Skilled judgment was provided in selection of appropriate interventions.Correct performance of therapeutic exercises was facilitated with verbal andvisual cuing.Therapeutic Activity:1: Assessment of patient's ability to get down to floor and back up again.Patient currently requires B ue support for both movements.Skilled Intervention: Proper patient guarding to prevent falls/increase patientsafety with stand by assist to assist patient while performing floor transfersBilling:Hutchins: Therapeutic Exercise (89724): 1:1 time: 35 minutes (3 units: 38-52mins)Therapeutic Activity (35462): 1:1 time: 5 minutes (no charge)Total time: 40 minutesTrini Dempsey PT [facility] PROGRESSon 12-03-2017 Protein HNO ID: [id number] thor: Trini (Pt) Kishor: (none)Author Type: Physical TherapistType: Progress NotesFiled: 12/03/2017 5:48 PMNote Text:Episode Visit Count: 5Therapist That Will Oversee The Plan Of Care: Sherri Delano of Care Date: 11/14/17Onset Date: 08/15/17Plan of Care Certification Date: 11/14/17Patient Identified by Name and Date of : YesREHABILITATION AND SPORTS THERAPYPHYSICAL THERAPY TREATMENT NOTEASSESSMENT: Patrice Ralf Jose demonstrated difficulty with getting down tofloor and back up again. Patient requires moderate use of B upperextremities to get back up. Making good progress with other exercises.Improved B hamstring flexibility. The patient will continue to benefitfrom continued skilled physical therapy for progressive strengthening andflexibility.PLAN FOR NEXT VISIT:Reassess progress toward goalsSUBJECTIVE: Pt reports his back is stiff and tight this morning afterdoing hip theraband ex.Pain Score: 5/10Pain Location: BackDescription: Stiffness;TightnessFrequency : IntermittentPost Treatment Pain Score: No ChangeOBJECTIVE MEASURES WITH LEVEL OF FUNCTION:LE FlexibilityR Hamstring Flexibility: -41L Hamstring Flexibility: -35TREATMENT:Therapeutic Exercise:1: Nu-step, seat 15, arms14, L 5 x 5 minutes 10 sec ab brace every [id number]: Nauruan Ball: Lat tilts and circles cw/ccw x 103: : Ab brace with alternate shld flex/ext x 104: : Ab brace with alt marching x 105: Supine PPT x 106: Sidelying clamshells with Ab brace 5 sec x 10 R/L7: Lunges R/L x 10 each with B ue support8: TG 34 degrees, partial squats 3 x 109: Sitting modified ER stretch with foot on stool, 5 sec x 5 R/L12: Supine hip flexor stretch off edge of bed 20 sec x 3 R/LSkilled Intervention: Patient was educated in proper exercise techniqueand purpose for exercises.Skilled judgment was provided in selection of appropriate interventions.Correct performance of therapeutic exercises was facilitated with verbaland visual cuing.Therapeutic Activity:1: Assessment of patient's ability to get down to floor and back up again. Patient currently requires B ue support for both movements.Skilled Intervention: Proper patient guarding to prevent falls/increasepatient safety with stand by assist to assist patient while performingfloor transfersBilling:Hutchins: Therapeutic Exercise (49522): 1:1 time: 35 minutes (3 units:38-52 mins)Therapeutic Activity (60299): 1:1 time: 5 minutes (no charge)Total time: 40 minutesTrini Dempsey PT [facility] CNTHERAPYon 11-28-2017 CNTHERAPY OT/PT/Speech Visit (PTMDRG) ----PATRICE JOEL ([id number]) 1940 [facility] Time Provider Department11/28/17 12:45 PM TRINI DEMPSEY (PT) PTMDRGEncounter Number: [id number] Time Provider Department [place]11/28/2017 12:45 PM [id number], JUDITH (PT)PTMDRG [facility] CReason for Visit: Physical Therapy [503]Visit Diagnosis:Decreased ROM of lumbar spine [M53.86]Allergies As of Date: 11/28/2017 Noted Allergy ReactionMORPHINE 12/09/2012 9 - Itching 14 - Other: See Comments Comments: convulsionsDate Reviewed: 11/07/2017Reviewed by: June Reynolds CT - Fully AssessedPrescriptions as of 11/28/2017 Sig: OTC NUTRITIONAL SUPPLEMENT melaluca nutritional suppleme* MANGANESE ORAL Take by mouth. ALEVE ORAL Take by mouth. KRILL OIL ORAL Take by mouth. VITAMIN B-12 ORAL Take by mouth. OTC PRODUCT Butchers broom, herbal for sp* * CHOLECALCIFEROL (VITAMIN D3) *Progress Notes:Trini Dempsey PT 11/29/2017 4:59 PM SignedEpisode Visit Count: 4Therapist That Will Oversee The Plan Of Care: Sherri Postart of Care Date: 11/14/17Onset Date: 08/15/17Plan of Care Certification Date: 11/14/17Patient Identified by Name and Date of : YesREHABILITATION AND SPORTS THERAPYPHYSICAL THERAPY TREATMENT NOTEASSESSMENT: Patrice Joel demonstrated improvements in Bilateral active hipflexion. The patient will continue to benefit from continued skilled physicaltherapy for improvement in hip flexibility and strength, core strength andbalance.PLAN FOR NEXT VISIT:Continue hip flexibility, core and le strengthening and balance ex. Reviewgetting down to floor and back up.SUBJECTIVE: Patient states he did all the ex on his sheets at home this morning.Denies any back pain at present. Stated he felt tired after last PT session andsore yesterday but today he feels better.Pain Score: 0/10Post Treatment Pain Score: No ChangeOBJECTIVE MEASURES WITH LEVEL OF FUNCTION:LE AROMR Hip Flexion: 94 DegreesL Hip Flexion: 91 DegreesTREATMENT:Therapeutic Exercise:1: Nu-step, seat 15, arms14, L 4 x 6 minutes with lumbar roll2: hip flex stretch to 90 degrees 10 sec x 5 R/L with towel assist3: Hooklying ab brace with alt hip flexion x 104: Patient instructed in mini lunge to do at kitchen counter R/L6: Sidestepping over cones R/L x 2 with ue support, x 2 without with closesupervision7: Cybex B knee ext 2.5 plates 2 x 108: TG 34 degrees, partial squats 2 x 1012: Supine hip flexor stretch off edge of bed 20 sec x 3 R/LSkilled Intervention: Skilled judgment was provided in selection of appropriateinterventions.Cor rect performance of therapeutic exercises was facilitated with verbal andvisual cuing.Neuromuscular Re-Education:1: Biodex limits of stability x 3 with ue support, x 3 without2: Stage 1, 2, 3 x 10 sec eachSkilled Intervention: Skilled judgment used to assess appropriate program forbalance and coordination activity.Insured patient safety with use of close supervisionBilling:Paul: Therapeutic Exercise (68430): 1:1 time: 38 minutes (3 units: 38-52mins)Neuromuscular Re-education (10428): 1:1 time: 5 minutes (no charge)Total time: 43 minutesTrini Dempsey PT [facility] PROGRESSon 11-28-2017 Protein HNO ID: [id number] thor: Trini (Pt) Kishor: (none)Author Type: Physical TherapistType: Progress NotesFiled: 11/29/2017 4:59 PMNote Text:Episode Visit Count: 4Therapist That Will Oversee The Plan Of Care: Sherri Wick of Care Date: 11/14/17Onset Date: 08/15/17Plan of Care Certification Date: 11/14/17Patient Identified by Name and Date of : YesREHABILITATION AND SPORTS THERAPYPHYSICAL THERAPY TREATMENT NOTEASSESSMENT: Patrice Joel demonstrated improvements in Bilateral activehip flexion. The patient will continue to benefit from continued skilledphysical therapy for improvement in hip flexibility and strength, corestrength and balance.PLAN FOR NEXT VISIT:Continue hip flexibility, core and le strengthening and balance ex. Reviewgetting down to floor and back up.SUBJECTIVE: Patient states he did all the ex on his sheets at home thismorning. Denies any back pain at present. Stated he felt tired afterlast PT session and sore yesterday but today he feels better.Pain Score: 0/10Post Treatment Pain Score: No ChangeOBJECTIVE MEASURES WITH LEVEL OF FUNCTION:LE AROMR Hip Flexion: 94 DegreesL Hip Flexion: 91 DegreesTREATMENT:Therapeutic Exercise:1: Nu-step, seat 15, arms14, L 4 x 6 minutes with lumbar roll2: hip flex stretch to 90 degrees 10 sec x 5 R/L with towel assist3: Hooklying ab brace with alt hip flexion x 104: Patient instructed in mini lunge to do at kitchen counter R/L6: Sidestepping over cones R/L x 2 with ue support, x 2 without with closesupervision7: Cybex B knee ext 2.5 plates 2 x 108: TG 34 degrees, partial squats 2 x 1012: Supine hip flexor stretch off edge of bed 20 sec x 3 R/LSkilled Intervention: Skilled judgment was provided in selection ofappropriate interventions.Correct performance of therapeutic exercises was facilitated with verbaland visual cuing.Neuromuscular Re-Education:1: Biodex limits of stability x 3 with ue support, x 3 without2: Stage 1, 2, 3 x 10 sec eachSkilled Intervention: Skilled judgment used to assess appropriate programfor balance and coordination activity.Insured patient safety with use of close supervisionBilling:Hutchins: Therapeutic Exercise (01308): 1:1 time: 38 minutes (3 units:38-52 mins)Neuromuscular Re-education (15087): 1:1 time: 5 minutes (no charge)Total time: 43 minutesTirni Dempsey PT [facility] CNTHERAPYon 11-26-2017 CNTHERAPY OT/PT/Speech Visit (PTMDRG) ----PATRICE JOEL ([id number]) 1940 MDate Time Provider Department11/26/17 12:45 PM TRINI DEMPSEY (PT) PTMDRGEncounter Number: [id number] Time Provider Department [place]11/26/2017 12:45 PM [id number], JUDITH (PT)PTMDRG [facility] CReason for Visit: Physical Therapy [503]Visit Diagnosis:Decreased ROM of lumbar spine [M53.86]Allergies As of Date: 11/26/2017 Noted Allergy ReactionMORPHINE 12/09/2012 9 - Itching 14 - Other: See Comments Comments: convulsionsDate Reviewed: 11/07/2017Reviewed by: June Reynolds CT - Fully AssessedPrescriptions as of 11/26/2017 Sig: OTC NUTRITIONAL SUPPLEMENT melaluca nutritional suppleme* MANGANESE ORAL Take by mouth. ALEVE ORAL Take by mouth. KRILL OIL ORAL Take by mouth. VITAMIN B-12 ORAL Take by mouth. OTC PRODUCT Butchers broom, herbal for sp* * CHOLECALCIFEROL (VITAMIN D3) *Progress Notes:Trini Dempsey PT 11/26/2017 2:45 PM SignedEpisode Visit Count: 3Therapist That Will Oversee The Plan Of Care: Sherri Postart of Care Date: 11/14/17Onset Date: 08/15/17Plan of Care Certification Date: 11/14/17Patient Identified by Name and Date of : YesREHABILITATION AND SPORTS THERAPYPHYSICAL THERAPY TREATMENT NOTEASSESSMENT: Patrice Joel demonstrated good tolerance to progression offlexibility and hip strengthening. He reports fatigue after last session. Painintensity less but still not noticing improvement in sitting or standingtolerance. The patient will continue to benefit from continued skilled physicaltherapy for trunk and lower extremity flexibility and strengthening as well asbalance ex.PLAN FOR NEXT VISIT:Continue balance exSUBJECTIVE: Patient reports he did his workout this morning and his back isfeeling a little tense. Patient states he still isn't noticing any improvementin his sitting or standing tolerance.Pain Score: 4/10Pain Location: BackDescription: TightnessFrequency: IntermittentPost Treatment Pain Score: No ChangeOBJECTIVE MEASURES WITH LEVEL OF FUNCTION:GaitWeight Bearing Status: WBATGait: Independent Gait Distance (feet): 100Gait Deviations: (tends to toe in B)TREATMENT:Therapeutic Exercise:1: Nu-step, seat 15, arms14, L 4 x 5 minutes with lumbar roll2: hip flex stretch to 90 degrees 10 sec x 5 R/L with towel assist3: Hooklying ab brace with alternate march to 90 degrees hip flexion x 104: Arms across chest Bridgin sec x 10*6: Standing B hip ext and abd with ab brace x 10 each with added resistance ofptb today *--issued ptb and loop for home7: Cybex B knee ext 2 plates 2 x 108: TG 34 degrees, partial squats 2 x 1012: Supine hip flexor stretch off edge of bed 20 sec x 3 R/LSkilled Intervention: Patient was educated in proper exercise technique andpurpose for exercises.Reviewed and educated patient on additions/changes for home exercise program asabove (*)Skilled judgment was provided in selection of appropriate interventions.Provided written instruction for home exercise program to facilitate properperformance and compliance.Correct performance of therapeutic exercises was facilitated with verbal andvisual cuing.Gait Trainin: Verbal cues to try and keep hips more in neutral than IR by trying toslightly ERSkilled Intervention: Facilitated proper gait cycle with the use of verbalcues for correction of gait deviations identified in the objective sectionJuan Antonio:Paul: Therapeutic Exercise (33396): 1:1 time: 37 minutes (3 units: 38-52mins)Gait Training (22110): 1:1 time: 3 minutes (no charge)Total time: 40 minutesTrini Dempsey PT [facility] PROGRESSon 11-26-2017 Protein HNO ID: [id number] thor: Trini Temple) Kishor: (none)Author Type: Physical TherapistType: Progress NotesFiled: 11/26/2017 2:45 PMNote Text:Episode Visit Count: 3Therapist That Will Oversee The Plan Of Care: Sherri Postart of Care Date: 11/14/17Onset Date: 08/15/17Plan of Care Certification Date: 11/14/17Patient Identified by Name and Date of : YesREHABILITATION AND SPORTS THERAPYPHYSICAL THERAPY TREATMENT NOTEASSESSMENT: Patrice Joel demonstrated good tolerance to progression offlexibility and hip strengthening. He reports fatigue after last session. Pain intensity less but still not noticing improvement in sitting orstanding tolerance. The patient will continue to benefit from continuedskilled physical therapy for trunk and lower extremity flexibility andstrengthening as well as balance ex.PLAN FOR NEXT VISIT:Continue balance exSUBJECTIVE: Patient reports he did his workout this morning and his backis feeling a little tense. Patient states he still isn't noticing anyimprovement in his sitting or standing tolerance.Pain Score: 4/10Pain Location: BackDescription: TightnessFrequency: IntermittentPost Treatment Pain Score: No ChangeOBJECTIVE MEASURES WITH LEVEL OF FUNCTION:GaitWeight Bearing Status: WBATGait: Independent Gait Distance (feet): 100Gait Deviations: (tends to toe in B)TREATMENT:Therapeutic Exercise:1: Nu-step, seat 15, arms14, L 4 x 5 minutes with lumbar roll2: hip flex stretch to 90 degrees 10 sec x 5 R/L with towel assist3: Hooklying ab brace with alternate march to 90 degrees hip flexion x 104: Arms across chest Bridgin sec x 10*6: Standing B hip ext and abd with ab brace x 10 each with addedresistance of ptb today *--issued ptb and loop for home7: Cybex B knee ext 2 plates 2 x 108: TG 34 degrees, partial squats 2 x 1012: Supine hip flexor stretch off edge of bed 20 sec x 3 R/LSkilled Intervention: Patient was educated in proper exercise techniqueand purpose for exercises.Reviewed and educated patient on additions/changes for home exerciseprogram as above (*)Skilled judgment was provided in selection of appropriate interventions.Provided written instruction for home exercise program to facilitateproper performance and compliance.Correct performance of therapeutic exercises was facilitated with verbaland visual cuing.Gait Trainin: Verbal cues to try and keep hips more in neutral than IR by trying toslightly ERSkilled Intervention: Facilitated proper gait cycle with the use ofverbal cues for correction of gait deviations identified in the objectivesection above.Billing:Kylee: Therapeutic Exercise (15675): 1:1 time: 37 minutes (3 units:38-52 mins)Gait Training (14241): 1:1 time: 3 minutes (no charge)Total time: 40 minutesTrini Dempsey PT [facility] CNTHERAPYon 11-21-2017 CNTHERAPY OT/PT/Speech Visit (PTMDRG) ----PATRICE JOEL ([id number]) 1940 [facility] Time Provider Department11/21/17 12:45 PM TRINI DEMPSEY (PT) PTMDRGEncounter Number: [id number] Time Provider Department [place]11/21/2017 12:45 PM [id number], JUDITH (PT)PTMDRG [facility]: Physical Therapy [503]Primary Visit Diagnosis:Bilateral low back pain without sciatica, unspecified chronicity [M54.5] Other Visit Diagnosis:Decreased ROM of lumbar spine [M53.86]Allergies As of Date: 11/21/2017 Noted Allergy ReactionMORPHINE 12/09/2012 9 - Itching 14 - Other: See Comments Comments: convulsionsDate Reviewed: 11/07/2017Reviewed by: June Reynolds CT - Fully AssessedPrescriptions as of 11/21/2017 Sig: OTC NUTRITIONAL SUPPLEMENT melaluca nutritional suppleme* MANGANESE ORAL Take by mouth. ALEVE ORAL Take by mouth. KRILL OIL ORAL Take by mouth. VITAMIN B-12 ORAL Take by mouth. OTC PRODUCT Butchers broom, herbal for sp* * CHOLECALCIFEROL (VITAMIN D3) *Progress Notes:Trini Dempsey PT 11/21/2017 1:44 PM SignedEpisode Visit Count: 2Therapist That Will Oversee The Plan Of Care: Sherri Postart of Care Date: 11/14/17Onset Date: 08/15/17Plan of Care Certification Date: 11/14/17Patient Identified by Name and Date of : YesREHABILITATION AND SPORTS THERAPYPHYSICAL THERAPY TREATMENT NOTEASSESSMENT: Patrice Arambula Jose demonstrated no change since last session. Becauseof some family circumstances he did not get a chance to begin HEP. Noting morepain in right side of low back than left. Patient continues to have moderatelimitation in trunk and B hamstring flexibility. The patient will continue tobenefit from continued skilled physical therapy for progression of stretches andcore and lower extremity strengthening.PLAN FOR NEXT VISIT:Add supine hip flex stretch to 90 degrees with towel assist. Trial ab bracing exon soft foam roll. Manual therapy PRN.SUBJECTIVE: Patient reports he hasn't been able to start his HEP yet due tofamily issues.Pain Score: 5/10Pain Location: Back (Right more than left)Description: DullFrequency: IntermittentPost Treatment Pain Score: No ChangeOBJECTIVE MEASURES WITH LEVEL OF FUNCTION:Pelvis is posteriorly rotated.TREATMENT:Therapeuti c Exercise:1: Nu-step, seat 15, arms14, L 4 x 5 minutes with lumbar roll2: B calf stretch at incline 30 sec x 33: R/L ham stretch at stairs 15 sec x 3 *4: 6 fwd step ups x 10 R/L5: Heel/toe raises x 10 each*6: Standing B hip ext and abd with ab brace x 10 each*7: Cybex B knee ext 2 plates x 108: TG 34 degrees, partial squats x 109: Standing hands on hips, feet even but apart, shift hips to R x 10, to L x 10*10: As above: rotate trunk to R x 10, to L x 10*11: Standing back ext x 10*12: Supine hip flexor stretch off edge of bed 15 sec x 3 R/LSkilled Intervention: Patient was educated in proper exercise technique andpurpose for exercises.Reviewed and educated patient on additions/changes for home exercise program asabove (*)Skilled judgment was provided in selection of appropriate interventions.Provided written instruction for home exercise program to facilitate properperformance and compliance.Correct performance of therapeutic exercises was facilitated with verbal andvisual cuing.Billing:Kylee: Therapeutic Exercise ([id number]): 1:1 time: 45 minutes (3 units: 38-52mins)Total time: 45 minutesTrini Dempsey PT [facility] PROGRESSon 11-21-2017 Protein HNO ID: [id number] thor: Trini (Pt) Kishor: (none)Author Type: Physical TherapistType: Progress NotesFiled: 11/21/2017 1:44 PMNote Text:Episode Visit Count: 2Therapist That Will Oversee The Plan Of Care: Sherri Wick of Care Date: 11/14/17Onset Date: 08/15/17Plan of Care Certification Date: 11/14/17Patient Identified by Name and Date of : YesREHABILITATION AND SPORTS THERAPYPHYSICAL THERAPY TREATMENT NOTEASSESSMENT: Patrice Joel demonstrated no change since last session.Because of some family circumstances he did not get a chance to begin HEP.Noting more pain in right side of low back than left. Patient continuesto have moderate limitation in trunk and B hamstring flexibility. Thepatient will continue to benefit from continued skilled physical therapyfor progression of stretches and core and lower extremity strengthening.PLAN FOR NEXT VISIT:Add supine hip flex stretch to 90 degrees with towel assist. Trial abbracing ex on soft foam roll. Manual therapy PRN.SUBJECTIVE: Patient reports he hasn't been able to start his HEP yet dueto family issues.Pain Score: 5/10Pain Location: Back (Right more than left)Description: DullFrequency: IntermittentPost Treatment Pain Score: No ChangeOBJECTIVE MEASURES WITH LEVEL OF FUNCTION:Pelvis is posteriorly rotated.TREATMENT:Therapeuti c Exercise:1: Nu-step, seat 15, arms14, L 4 x 5 minutes with lumbar roll2: B calf stretch at incline 30 sec x 33: R/L ham stretch at stairs 15 sec x 3 *4: 6 fwd step ups x 10 R/L5: Heel/toe raises x 10 each*6: Standing B hip ext and abd with ab brace x 10 each*7: Cybex B knee ext 2 plates x 108: TG 34 degrees, partial squats x 109: Standing hands on hips, feet even but apart, shift hips to R x 10, to Lx 10*10: As above: rotate trunk to R x 10, to L x 10*11: Standing back ext x 10*12: Supine hip flexor stretch off edge of bed 15 sec x 3 R/LSkilled Intervention: Patient was educated in proper exercise techniqueand purpose for exercises.Reviewed and educated patient on additions/changes for home exerciseprogram as above (*)Skilled judgment was provided in selection of appropriate interventions.Provided written instruction for home exercise program to facilitateproper performance and compliance.Correct performance of therapeutic exercises was facilitated with verbaland visual cuing.Billing:Kylee: Therapeutic Exercise (59632): 1:1 time: 45 minutes (3 units:38-52 mins)Total time: 45 minutesTrini Dempsey PT [facility] CNTHERAPYon 11-14-2017 CNTHERAPY OT/PT/Speech Visit (PTMDRG) ----[facility] ([id number]) 1940 [facility]11/14/17 10:15 AM TRINI DEMPSEY (PT) PTMDRGEncounter Number: [id number] Time Provider Department [place]11/14/2017 10:15 AM [id number], JUDITH (PT)PTMDRG [facility] CReason for Visit: PT Nishaal [747]Primary Visit Diagnosis:Chronic bilateral low back pain without sciatica [M54.5, G89.29]Allergies As of Date: 11/14/2017 Noted Allergy ReactionMORPHINE 12/09/2012 9 - Itching 14 - Other: See Comments Comments: convulsionsDate Reviewed: 11/07/2017Reviewed by: June Reynolds CT - Fully AssessedPrescriptions as of 11/14/2017 Sig: OTC NUTRITIONAL SUPPLEMENT melaluca nutritional suppleme* MANGANESE ORAL Take by mouth. ALEVE ORAL Take by mouth. KRILL OIL ORAL Take by mouth. VITAMIN B-12 ORAL Take by mouth. OTC PRODUCT Butchers broom, herbal for sp* * CHOLECALCIFEROL (VITAMIN D3) *Progress Notes:Trini Dempsey, PT 11/14/2017 11:50 AM SignedEpisode Visit Count: 1Therapist That Will Oversee The Plan Of Care: Sherri Dempseyart of Care Date: 11/14/17Onset Date: 08/15/17Plan of Care Certification Date: 11/14/17Patient Identified by Name and Date of : YesREHABILITATION AND SPORTS THERAPYPHYSICAL THERAPY EVALUATIONPLAN OF CARE:Assessment: Patrice Joel presents with the diagnosis of s/p R/lowerextremity CIRILO, lumbar stenosis. He presents with impairments of primarilydecreased flexibility in trunk and bilateral hips, decreased hip extensionstrength, limited mobility getting up from ground, decreased standing toleranceand difficulty getting up after prolonged sitting. He may benefit from skilledtherapy services to improve his flexibility, core and lower extremity strengthin order to improve his overall function and decrease his pain.ClassificationLow Back Pain Subgroup Classification: Core stabilization subgroup: recommendedvisits 10.Core Stabilization Subgroup Classification based on: pain with transitionalmovementsPrognos is: GoodGood due to: current objective clinical presentation;good overall healthstatus;good support system/ coping skillsGoals for Episode of Care: created on 11/14/17 through 01/15/18Independent in home exercises.Patient will decrease pain to 2/10 with functional activities to allow patientto improve standing tolerance for ADLs.Restore pain-free lumbar ROM to trunk sidebending and rotation to allow forgreater ease of trunk movements during ADLSit 2 hours and be able to stand with less difficulty without pain/symptoms toallow for improved transitional movements after sittingPatient will increase strength of hip extension R/L to 4+/5 to allow forimproved performance of ADLs.Patient will increase flexibility of B hamstrings to -35 degrees to improveability to maintain proper posture, restore normal mechanics and decrease pain.Improve Modified Oswestry Pain Questionnaire (LBP) by 6 points (12%) to indicatea Minimal Clinical Important Difference.Patient will improve his/her AM-PAC T-scale score by 4 points to indicate aMinimal Clinical Important Difference.Improve 30 sec chair stand test to 11 reps which is at age adjusted norms forpatient's ageImprove tandem stance R/left to 10 secs with decreased hip/upper extremitystrategiesPatient will be able to get down to the ground and back up again withoutexternal supportG CODE REPORTINGBased on clinical assessment and the score on the AM-PAC Scale Score AssessmentTool, the G code and corresponding severity modifiers are documented below.Evaluation: 11/14/2017Current Status: Mobility: Walking and Moving Around: G8978 CJ 20-39% impairedGoal Status: Mobility: Walking and Moving Around: G8979 CI 1-19% impairedPlanned Interventions, Frequency, and Duration: Current Frequency: 2x/weekDuration: 4 weeksTotal Number of Visits Planned: 8Planned Treatment Interventions: Therapeutic exercise;Neuromuscularre-edu cation;Therapeutic activities;Self-care homemanagement;Patient/Famil y/Caregiver EducationPLAN FOR NEXT VISIT: Progress trunk flexibility ex, hip ROMPatient demonstrates good understanding of plan of care and treatment. Theabove goals and plan of care were discussed and agreed upon by patient/family.SUBJECTIVE: Patrice Joel is a 77 year old male seen today for evaluation forcomplaints of chronic low back pain, decreased ability to get up off the floorand increased hip discomfort with his walking program on treadmill. Patient sawhis orthopedic surgeon who reassured patient that his hips are doing well.Patient reports 20 year history of back pain. Pain is primarily with increasedactivity, prolonged standing, and getting up after prolonged sitting.Prior Level of Function: Independent without limitationsPatient Goals: Patient would like to be able to get up from the groung withouthaving to use external support.Intake Information: Prescription presentRelevant HistoryMedical Conditions: HypertensionSurgical Conditions: Total Hip ReplacementEmployment: RetiredRecreation / Current Exercise: yard work, walks on treadmill 3 x a weekHome EnvironmentPatient Lives With: Significant OtherPain Score: 0/10 (6/10 in low back with higher activity)Pain Location: BackDescription: DullFrequency: IntermittentPost Treatment Pain Score: No ChangeOBJECTIVE MEASURES WITH LEVEL OF FUNCTION:GaitWeight Bearing Status: WBATGait: Independent Gait Distance (feet): 100Gait Device: NoneStairs: SupervisionStairs Device: RailNumber of Stairs: 10Stairs: Reciprocal ascent/descentLumbar Spine AROMLumbar Flexion: Moderate limitation;Increased painLumbar Extension: Minimal limitationLumbar R Side-Bend: Moderate limitation;Increased painLumbar L Side-Bend: Moderate limitation;Increased painLumbar R Rotation: Moderate limitationLumbar L Rotation: Moderate limitataionLE AROMR Hip Flexion: 82 DegreesL Hip Flexion: 84 DegreesLE FlexibilityFlexibility: Hamstring Flexibility;Lower Extremity Flexibility;GastrocnemiusFle xibilityLower Extremity Flexibility: (tight hip flexors)R Hamstring Flexibility: -46L Hamstring Flexibility: -53R Gastrocnemius Flexibility: (minimal limitation)L Gastrocnemius Flexibility: (minimal limitation)30 Second Sit to Stand Test (reps): 9 reps4 Stage Balance TestNarrow base of support (sec): 10 secSemi-tandem base of support (sec): 10 secTandem base of support (sec): 10 secEducation:EducationLearni ng Preferences: Demonstration;Explanation;Pe rformance;Printed MaterialsBarriers: NoneLearning/educational needs: Home exercise program;Plan of Care;Body MechanicsEducation Provided: Yes, see treatment interventions for education providedEducation Provided To: PatientEducation Mode/Type: Demonstration;Explanation/Di scussion;Literature/PrintedM aterials;PerformanceResponse to Education/Teach Back: States/Identifies;Return DemonstrationTREATMENT:Evalu ationEvaluationTherapeutic Exercise:1: Sit to stand with arms across chest x 10*2: Long sitting at edge of bed, hamstring stretch R/L 30 sec x 3*3: Same position: calf stretch with belt R/L 30 sec x 34: Standing with hands on hips with weight shift R/L x 5 (not given on HEP sheetyet)Skilled Intervention: Patient was educated in proper exercise technique andpurpose for exercises.Reviewed and educated patient on additions/changes for home exercise program asabove (*)Skilled judgment was provided in selection of appropriate interventions.Provided written instruction for home exercise program to facilitate properperformance and compliance.Correct performance of therapeutic exercises was facilitated with verbal andvisual cuing.Neuromuscular Re-Education:1: 30 sec chair stand test2: 4 stage balance test3: Tandem stance R/L 10 sec x 1-3 for HEP*Skilled Intervention: Skilled judgment used to assess appropriate program forbalance and coordination activity.Insured patient safety with use of close supervisionBilling:Hutchins: Evaluation - Low Complexity (96996)Therapeutic Exercise (80028): 1:1 time: 10 minutes (1 unit: 8-22 mins)Neuromuscular Re-education (42861): 1:1 time: 5 minutes (no charge)Total time: 55 minutesTrini Dempsey PT [facility] PROGRESSon 11-14-2017 Protein HNO ID: [id number] thor: Trini Iverson: (none)Author Type: Physical TherapistType: Progress NotesFiled: 11/14/2017 11:50 AMNote Text:Episode Visit Count: 1Therapist That Will Oversee The Plan Of Care: Sherri Postart of Care Date: 11/14/17Onset Date: 08/15/17Plan of Care Certification Date: 11/14/17Patient Identified by Name and Date of : YesREHABILITATION AND SPORTS THERAPYPHYSICAL THERAPY EVALUATIONPLAN OF CARE:Assessment: Patrice Joel presents with the diagnosis of s/p R/lowerextremity CIRILO, lumbar stenosis. He presents with impairments ofprimarily decreased flexibility in trunk and bilateral hips, decreased hipextension strength, limited mobility getting up from ground, decreasedstanding tolerance and difficulty getting up after prolonged sitting. Teresa benefit from skilled therapy services to improve his flexibility, coreand lower extremity strength in order to improve his overall function anddecrease his pain.ClassificationLow Back Pain Subgroup Classification: Core stabilization subgroup:recommended visits 10.Core Stabilization Subgroup Classification based on: pain withtransitional movementsPrognosis: GoodGood due to: current objective clinical presentation;good overall healthstatus;good support system/ coping skillsGoals for Episode of Care: created on 11/14/17 through 01/15/18Independent in home exercises.Patient will decrease pain to 2/10 with functional activities to allowpatient to improve standing tolerance for ADLs.Restore pain-free lumbar ROM to trunk sidebending and rotation to allowfor greater ease of trunk movements during ADLSit 2 hours and be able to stand with less difficulty withoutpain/symptoms to allow for improved transitional movements after sittingPatient will increase strength of hip extension R/L to 4+/5 to allow forimproved performance of ADLs.Patient will increase flexibility of B hamstrings to -35 degrees toimprove ability to maintain proper posture, restore normal mechanics anddecrease pain.Improve Modified Oswestry Pain Questionnaire (LBP) by 6 points (12%) toindicate a Minimal Clinical Important Difference.Patient will improve his/her AM-PAC T-scale score by 4 points to indicatea Minimal Clinical Important Difference.Improve 30 sec chair stand test to 11 reps which is at age adjusted normsfor patient's ageImprove tandem stance R/left to 10 secs with decreased hip/upper extremitystrategiesPatient will be able to get down to the ground and back up again withoutexternal supportG CODE REPORTINGBased on clinical assessment and the score on the AM-PAC Scale ScoreAssessment Tool, the G code and corresponding severity modifiers aredocumented below.Evaluation: 11/14/2017Current Status: Mobility: Walking and Moving Around: G8978 CJ 20-39%impairedGoal Status: Mobility: Walking and Moving Around: G8979 CI 1-19%impairedPlanned Interventions, Frequency, and Duration: Current Frequency:2x/weekDuration: 4 weeksTotal Number of Visits Planned: 8Planned Treatment Interventions: Therapeutic exercise;Neuromuscularre-edu cation;Therapeutic activities;Self-care homemanagement;Patient/Famil y/Caregiver EducationPLAN FOR NEXT VISIT: Progress trunk flexibility ex, hip ROMPatient demonstrates good understanding of plan of care and treatment.The above goals and plan of care were discussed and agreed upon bypatient/family.SUBJECTIVE: Patrice Joel is a 77 year old male seen today forevaluation for complaints of chronic low back pain, decreased ability toget up off the floor and increased hip discomfort with his walking programon treadmill. Patient saw his orthopedic surgeon who reassured patientthat his hips are doing well. Patient reports 20 year history of backpain. Pain is primarily with increased activity, prolonged standing, andgetting up after prolonged sitting.Prior Level of Function: Independent without limitationsPatient Goals: Patient would like to be able to get up from the groungwithout having to use external support.Intake Information: Prescription presentRelevant HistoryMedical Conditions: HypertensionSurgical Conditions: Total Hip ReplacementEmployment: RetiredRecreation / Current Exercise: yard work, walks on treadmill 3 x a weekHome EnvironmentPatient Lives With: Significant OtherPain Score: 0/10 (6/10 in low back with higher activity)Pain Location: BackDescription: DullFrequency: IntermittentPost Treatment Pain Score: No ChangeOBJECTIVE MEASURES WITH LEVEL OF FUNCTION:GaitWeight Bearing Status: WBATGait: Independent Gait Distance (feet): 100Gait Device: NoneStairs: SupervisionStairs Device: RailNumber of Stairs: 10Stairs: Reciprocal ascent/descentLumbar Spine AROMLumbar Flexion: Moderate limitation;Increased painLumbar Extension: Minimal limitationLumbar R Side-Bend: Moderate limitation;Increased painLumbar L Side-Bend: Moderate limitation;Increased painLumbar R Rotation: Moderate limitationLumbar L Rotation: Moderate limitataionLE AROMR Hip Flexion: 82 DegreesL Hip Flexion: 84 DegreesLE FlexibilityFlexibility: Hamstring Flexibility;Lower ExtremityFlexibility;Gastroc nemius FlexibilityLower Extremity Flexibility: (tight hip flexors)R Hamstring Flexibility: -46L Hamstring Flexibility: -53R Gastrocnemius Flexibility: (minimal limitation)L Gastrocnemius Flexibility: (minimal limitation)30 Second Sit to Stand Test (reps): 9 reps4 Stage Balance TestNarrow base of support (sec): 10 secSemi-tandem base of support (sec): 10 secTandem base of support (sec): 10 secEducation:EducationLearni ng Preferences: Demonstration;Explanation;Pe rformance;PrintedMaterialsBa rriers: NoneLearning/educational needs: Home exercise program;Plan of Care;BodyMechanicsEducation Provided: Yes, see treatment interventions for educationprovidedEducation Provided To: PatientEducation Mode/Type:Demonstration;Expl anation/Discussion;Literatur e/PrintedMaterials;Performan ceResponse to Education/Teach Back: States/Identifies;Return DemonstrationTREATMENT:Evalu ationEvaluationTherapeutic Exercise:1: Sit to stand with arms across chest x 10*2: Long sitting at edge of bed, hamstring stretch R/L 30 sec x 3*3: Same position: calf stretch with belt R/L 30 sec x 34: Standing with hands on hips with weight shift R/L x 5 (not given on HEPsheet yet)Skilled Intervention: Patient was educated in proper exercise techniqueand purpose for exercises.Reviewed and educated patient on additions/changes for home exerciseprogram as above (*)Skilled judgment was provided in selection of appropriate interventions.Provided written instruction for home exercise program to facilitateproper performance and compliance.Correct performance of therapeutic exercises was facilitated with verbaland visual cuing.Neuromuscular Re-Education:1: 30 sec chair stand test2: 4 stage balance test3: Tandem stance R/L 10 sec x 1-3 for HEP*Skilled Intervention: Skilled judgment used to assess appropriate programfor balance and coordination activity.Insured patient safety with use of close supervisionBilling:Paul: Evaluation - Low Complexity (57869)Therapeutic Exercise (44109): 1:1 time: 10 minutes (1 unit: 8-22 mins)Neuromuscular Re-education (21009): 1:1 time: 5 minutes (no charge)Total time: 55 minutesTrini Dempsey PT [facility] PROGRESSon 11-07-2017 Protein HNO ID: [id number] thor: Sumaya (Ct) Brinda, CTService: (none)Author Type: Clinical TechnicianType: Progress NotesFiled: 11/07/2017 11:11 AMNote Text:NAME:Patrice JoelDATE: November 07, 2017CCF#: [id number] X-Ray COMPLETEDTECH ID SIGN: SUMAYA ALCANTARA [facility] XR PELVIS 1V APon 11-07-2017 XR PELVIS 1V AP * * *Final Report* * *DATE OF EXAM: Nov 07 2017 8:10AM MAGED 5239 - XR PELVIS 1V AP / REASON: [id number], unspecified * * * * Physician Interpretation * * * * PROCEDURE: PelvisINDICATION: Pain, unspecified .TECHNIQUE: XR PELVIS 1V APCOMPARISON: 10/19/2014FINDINGS:Bilateral total hip arthroplasties remain in satisfactory position without evidence for loosening. No fracture is seen. Vascular calcifications are evident.IMPRESSION: Stable bilateral THAsTranscriptionist: THAD Transcribe Date/Time: Nov 07 2017 3:48PDictated by : PIERRE RIDER MDThis examination was interpreted and the report reviewed and electronically signed by: PIERRE RIDER MD on Nov 07 2017 3:48PM [id number] [facility] Vital Signs Date Time Vital Sign Value Performing Clinician Hei yoselin 02-19-2024 15:51-0400 Body height 185.4 cm Michelle Bragg PA-C Work Phone: [facility] 02-19-2024 15:51-0400 Body mass index (BMI) [Ratio] 26.12 kg/m2 Michelle Bragg PA-C Work Phone: [facility] 02-19-2024 15:51-0400 Body weight 89.81 kg Michelle Bragg PA-C Work Phone: [facility] 02-04-2024 15:58-0400 Body temperature 97.3 [degF] Jaden Gonzalez MD Work Phone: [facility] 02-04-2024 15:58-0400 Diastolic blood pressure 73 mm[Hg] Jaden Gonzalez MD Work Phone: [facility] 02-04-2024 15:58-0400 Heart rate 80 /min Jaden Gonzalez MD Work Phone: [facility] 02-04-2024 15:58-0400 Respiratory rate 18 /min Jaden Gonzalez MD Work Phone: [facility] 02-04-2024 15:58-0400 SaO2% (BldA) [Mass fraction] 96 % Jaden Gonzalez MD Work Phone: [facility] 02-04-2024 15:58-0400 Systolic blood pressure 114 mm[Hg] Jaden Gonzalez MD Work Phone: [facility] 01-28-2024 06:42-0400 Body height 185.4 cm Jaden Gonzalez MD Work Phone: [facility] 01-28-2024 06:42-0400 Body mass index (BMI) [Ratio] 26.12 kg/m2 Jaden Gonzalez MD Work Phone: [facility] 01-28-2024 06:42-0400 Body weight 89.81 kg Jaden Gonzalez MD Work Phone: [facility] 01-27-2024 09:57-0400 Body height 185.4 cm Joey rodriguez MD Work Phone: [facility] 01-27-2024 09:57-0400 Body mass index (BMI) [Ratio] 26.12 kg/m2 Joey Robison MD Work Phone: [facility] 01-27-2024 09:57-0400 Body temperature 98.2 [degF] Joey rodriguez MD Work Phone: [facility] 01-27-2024 09:57-0400 Body weight 89.81 kg Joey rodriguez MD Work Phone: [facility] 01-27-2024 09:57-0400 Diastolic blood pressure 84 mm[Hg] Joey Robison MD Work Phone: [facility] 01-27-2024 09:57-0400 Heart rate 63 /min Joey rodriguez MD Work Phone: [facility] 01-27-2024 09:57-0400 Respiratory rate 18 /min Joey rodriguez MD Work Phone: [facility] 01-27-2024 09:57-0400 SaO2% (BldA) [Mass fraction] 96 % Joey Robison MD Work Phone: [facility] 01-27-2024 09:57-0400 Systolic blood pressure 152 mm[Hg] Joey Robison MD Work Phone: [facility] 01-02-2024 11:02-0400 Body height 180.3 cm Toya DAVE-C Work Phone: [facility] 01-02-2024 11:02-0400 Body mass index (BMI) [Ratio] 28.76 kg/m2 Toya DAVE-C Work Phone: [facility] 01-02-2024 11:02-0400 Body temperature 97.39 [degF] Toya DAVE-C Work Phone: [facility] 01-02-2024 11:02-0400 Body weight 93.55 kg Toya DAVE-C Work Phone: [facility] 01-02-2024 11:02-0400 Diastolic blood pressure 74 mm[Hg] Toya Slabaugh PA-C Work Phone: [facility] 01-02-2024 11:02-0400 Heart rate 56 /min Toya Jacobsen PA-C Work Phone: [facility] 01-02-2024 11:02-0400 Respiratory rate 18 /min Toyamakenna Liaugh PA-C Work Phone: [facility] 01-02-2024 11:02-0400 SaO2% (BldA) [Mass fraction] 100 % Toya Liaukathryn PA-C Work Phone: [facility] 01-02-2024 11:02-0400 Systolic blood pressure 159 mm[Hg] Toyamakenna Liaugh PA-C Work Phone: [facility] 02-19-2023 11:28-0400 Body height 180.3 cm Joe Brant PUTTY AND CAULKING SUPERVISOR.COPY WRITER Work Phone: [facility] 02-19-2023 11:28-0400 Body temperature 97.81 [degF] Joe Brant PUTTY AND CAULKING SUPERVISOR.COPY WRITER Work Phone: [facility] 02-19-2023 11:28-0400 Body weight 98.88 kg Joe Brant PUTTY AND CAULKING SUPERVISOR.COPY WRITER Work Phone: [facility] 02-19-2023 11:28-0400 Diastolic blood pressure 64 mm[Hg] Joe Brant PUTTY AND CAULKING SUPERVISOR.COPY WRITER Work Phone: [facility] 02-19-2023 11:28-0400 Heart rate 70 /min Joe Brant PUTTY AND CAULKING SUPERVISOR.COPY WRITER Work Phone: [facility] 02-19-2023 11:28-0400 Respiratory rate 16 /min Joe Brant PUTTY AND CAULKING SUPERVISOR.COPY WRITER Work Phone: [facility] 02-19-2023 11:28-0400 SaO2% (BldA) [Mass fraction] 99 % Joe Brant PUTTY AND CAULKING SUPERVISOR.COPY WRITER Work Phone: [facility] 02-19-2023 11:28-0400 Systolic blood pressure 120 mm[Hg] Joe Brant PUTTY AND CAULKING SUPERVISOR.COPY WRITER Work Phone: [facility] 11-22-2022 11:05-0400 Body height 185.4 cm Hadley Fallon MD Work Phone: [facility] 11-22-2022 11:05-0400 Body mass index (BMI) [Ratio] 28.89 kg/m2 Hadley Fallon MD Work Phone: [facility] 11-22-2022 11:05-0400 Body weight 99.34 kg Hadley Fallon MD Work Phone: [facility] 11-22-2022 11:05-0400 Diastolic blood pressure 72 mm[Hg] Hadley Fallon MD Work Phone: [facility] 11-22-2022 11:05-0400 Heart rate 58 /min Hadley Fallon MD Work Phone: [facility] 11-22-2022 11:05-0400 SaO2% (BldA) [Mass fraction] 96 % Hadley Fallon MD Work Phone: [facility] 11-22-2022 11:05-0400 Systolic blood pressure 125 mm[Hg] Hadley Fallon MD Work Phone: [facility] 10-26-2022 11:45-0400 Diastolic blood pressure 76 mm[Hg] Larissa Denton PUTTY AND CAULKING SUPERVISOR - COPY WRITER Work Phone: [facility] 10-26-2022 11:45-0400 Systolic blood pressure 128 mm[Hg] Larissa Denton PUTTY AND CAULKING SUPERVISOR - COPY WRITER Work Phone: [facility] 10-26-2022 11:25-0400 Body height 185.4 cm Larissa Denton APR N - COPY WRITER Work Phone: [facility] 10-26-2022 11:25-0400 Body mass index (BMI) [Ratio] 29.42 kg/m2 Larissa Denton PUTTY AND CAULKING SUPERVISOR - COPY WRITER Work Phone: [facility] 10-26-2022 11:25-0400 Body weight 101.15 kg Larissa Denton APR N - COPY WRITER Work Phone: [facility] 10-26-2022 11:25-0400 Heart rate 58 /min Larissa Denton APR N - COPY WRITER Work Phone: [facility] 10-26-2022 11:25-0400 SaO2% (BldA) [Mass fraction] 98 % Larissa Denton PUTTY AND CAULKING SUPERVISOR - COPY WRITER Work Phone: [facility] 09-05-2022 09:57-0400 Diastolic blood pressure 74 mm[Hg] Hadley Fallon MD Work Phone: [facility] 09-05-2022 09:57-0400 Systolic blood pressure 162 mm[Hg] Hadley Fallon MD Work Phone: [facility] 09-05-2022 09:25-0400 Body height 185.4 cm Hadley Fallon MD Work Phone: [facility] 09-05-2022 09:25-0400 Body mass index (BMI) [Ratio] 31.27 kg/m2 Hadley Fallon MD Work Phone: [facility] 09-05-2022 09:25-0400 Body weight 107.5 kg Hadley Fallon MD Work Phone: [facility] 09-05-2022 09:25-0400 Heart rate 56 /min Hadley Fallon MD Work Phone: [facility] 09-05-2022 09:25-0400 SaO2% (BldA) [Mass fraction] 98 % Hadley Fallon MD Work Phone: [facility] 08-15-2022 08:27-0400 Body height 185.4 cm Matthew Perez PA-C Work Phone: [facility] 08-15-2022 08:27-0400 Body mass index (BMI) [Ratio] 31.14 kg/m2 Matthew Perez PA-C Work Phone: [facility] 08-15-2022 08:27-0400 Body temperature 97.2 [degF] Matthew Perez PA-C Work Phone: [facility] 08-15-2022 08:27-0400 Body weight 107.05 kg Matthew DAVE-C Work Phone: [facility] 08-15-2022 08:27-0400 Diastolic blood pressure 62 mm[Hg] Matthew DAVE-C Work Phone: [facility] 08-15-2022 08:27-0400 Heart rate 55 /min Matthew DAVE-C Work Phone: [facility] 08-15-2022 08:27-0400 Systolic blood pressure 140 mm[Hg] Matthew DAVE-C Work Phone: [facility] 08-08-2022 10:42-0400 Diastolic blood pressure 82 mm[Hg] Hadley Fallon MD Work Phone: [facility] 08-08-2022 10:42-0400 Systolic blood pressure 154 mm[Hg] Hadley Fallon MD Work Phone: [facility] 08-08-2022 09:19-0400 Body height 185.4 cm Hadley Fallon MD Work Phone: [facility] 08-08-2022 09:19-0400 Body mass index (BMI) [Ratio] 31.14 kg/m2 Hadley Fallon MD Work Phone: [facility] 08-08-2022 09:19-0400 Body weight 107.05 kg Hadley Fallon MD Work Phone: [facility] 08-08-2022 09:19-0400 Heart rate 74 /min Hadley Fallon MD Work Phone: [facility] 08-08-2022 09:19-0400 SaO2% (BldA) [Mass fraction] 99 % Hadley Fallon MD Work Phone: [facility] 05-28-2022 17:31-0500 Body weight 106.14 kg Letty Shen APRN.CNP Work Phone: [facility] 05-28-2022 17:31-0500 Diastolic blood pressure 87 mm[Hg] Letty Shen P[employer]TY AND CAULKING SUPERVISOR.COPY WRITER Work Phone: [facility] 05-28-2022 17:31-0500 Heart rate 64 /min Letty Shen PUTTY AND CAULKING SUPERVISOR.COPY WRITER Work Phone: [facility] 05-28-2022 17:31-0500 Respiratory rate 16 /min Letty Shen P[employer]TY AND CAULKING SUPERVISOR.COPY WRITER Work Phone: [facility] 05-28-2022 17:31-0500 SaO2% (BldA) [Mass fraction] 100 % Letty Shen PUTTY AND CAULKING SUPERVISOR.COPY WRITER Work Phone: [facility] 05-28-2022 17:31-0500 Systolic blood pressure 153 mm[Hg] Letty Shen PUTTY AND CAULKING SUPERVISOR.COPY WRITER Work Phone: [facility] 09-01-2020 11:06-0400 Diastolic blood pressure 88 mm[Hg] Abilio Pike MD Work Phone: [facility] Work Phone: 09-01-2020 11:06-0400 Heart rate 88 /min Abilio Pike MD Work Phone: [facility] Work Phone: 09-01-2020 11:06-0400 Respiratory rate 20 /min Abilio Pike MD Work Phone: [facility] Work Phone: 09-01-2020 11:06-0400 Systolic blood pressure 138 mm[Hg] Abilio Pike MD Work Phone: [facility] Work Phone: 09-01-2020 10:16-0400 Body height 185.4 cm Abilio Pike MD Work Phone: [facility] Work Phone: 09-01-2020 10:16-0400 Body mass index (BMI) [Ratio] 34.3 kg/m2 Abilio Pike MD Work Phone: [facility] Work Phone: 09-01-2020 10:16-0400 Body temperature 98.2 [degF] Abilio Pike MD Work Phone: [facility] Work Phone: 09-01-2020 10:16-0400 Body weight 117.94 kg Abilio Pike MD Work Phone: [facility] Work Phone: 09-01-2020 10:16-0400 SaO2% (BldA) [Mass fraction] 98 % Abilio Pike MD Work Phone: [facility] Work Phone: 08-28-2020 12:54-0400 Diastolic blood pressure 68 mm[Hg] Alex Nair MD Work Phone: [facility] Work Phone: 08-28-2020 12:54-0400 Heart rate 62 /min Alex Nair MD Work Phone: [facility] Work Phone: 08-28-2020 12:54-0400 Respiratory rate 18 /min Alex Nair MD Work Phone: [facility] Work Phone: 08-28-2020 12:54-0400 SaO2% (BldA) [Mass fraction] 100 % Alex Nair MD Work Phone: [facility] Work Phone: 08-28-2020 12:54-0400 Systolic blood pressure 144 mm[Hg] Alex Nair MD Work Phone: [facility] Work Phone: 08-28-2020 11:45-0400 Body height 188 cm Alex Nair MD Work Phone: [facility] Work Phone: 08-28-2020 11:45-0400 Body mass index (BMI) [Ratio] 34.02 kg/m2 Alex [facility] MD [facility] Work Phone: 08-28-2020 11:45-0400 Body weight 120.2 kg Alex Nair MD Work Phone: [facility] Work Phone: 01-30-2020 15:28-0400 BP Diastolic 85 mm[Hg] Alex Nair [employer] [employer] [facility] [place] 01-30-2020 15:28-0400 BP Systolic 153 mm[Hg] Alex Nair [employer] [place] , [place] 01-30-2020 15:28-0400 Pulse (Heart Rate) 59 /min Alex Nair [employer] [place], [place] 01-30-2020 15:28-0400 Pulse Oximetry 96 % Alex [employer] , [place] 01-30-2020 15:28-0400 Respiratory Rate 16 /min Alex Nair [employer], [place] 01-30-2020 13:40-0400 BMI (Body Mass Index) 34.02 kg/m2 Alex Nair [employer] [employer], [place] 01-30-2020 13:40-0400 Body Temperature 98.49 [degF] Alex Nair [employer], [place] 01-30-2020 13:40-0400 Body weight 120.2 kg Alex Nair [employer] [employer] [facility] [place] 01-30-2020 13:40-0400 Height 188 cm Alxe [employer] , [place] Encounters Encounter Date Encounter Type Care Provider Facility Start: 04-16-2024 End: 04-16-2024 Subsequent hospital visit by physician Logan X[facility]Ray 1 [facility] Comment on above: 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 Start: 04-16-2024 End: 04-16-2024 ambulatory MICHELLE BRAGG [facility] Start: 02-19-2024 End: 02-19-2024 Postop follow up visit related to original px Michelle Bragg PA-C Work Phone: [facility] Comment on above: 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 (Primary Dx) Start: 02-19-2024 End: 02-19-2024 ambulatory [facility] Start: 02-19-2024 End: 02-19-2024 Subsequent hospital visit by physician Dave Dickson [facility] 2 [facility] Comment on above: 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 Start: 02-19-2024 End: 02-19-2024 ambulatory [facility] Start: 01-27-2024 End: 01-27-2024 Emergency department patient visit JADEN GONZALEZ [facility] Start: 01-27-2024 End: 02-04-2024 Evaluation and management of inpatient DEZ R KIKO [facility] Work Phone: Comment on above: Closed fracture of l eft femur, unspecified fracture morphology, unspecified portion of femur, initial encounter (Multi) (Primary Dx); Periprosthetic fracture of proximal end of femur Start: 01-27-2024 End: 01-27-2024 Emergency department patient visit JOEY ROBISON [facility] Work Phone: Comment on above: 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, initial encounter (Multi) (Primary Dx) Start: 01-07-2024 End: 01-27-2024 ambulatory Martine Vazquez RN [facility] Start: 01-07-2024 End: 01-27-2024 Patient encounter procedure Martine Vazquez RN [facility] Start: 01-02-2024 End: 01-02-2024 ambulatory HADLEY FALLON Facility:[facility] Start: 01-02-2024 End: 01-02-2024 Patient encounter procedure Toya Jacobsen PA-C Work Phone: [facility] Comment on above: Bilateral impacted c erumen (Primary Dx) Start: 02-19-2023 End: 02-19-2023 ambulatory DALTON GRAHAM Facility:[facility] Start: 02-19-2023 End: 02-19-2023 Office outpatient new 30 minutes Joe Rodriguez APRN.CNP Work Phone: [facility] Comment on above: Puncture wound of le ft index finger (Primary Dx); Localized erythema; Visit for wound check Start: 01-03-2023 Telephone encounter Hadley stubbs MD Work Phone: [facility] Comment on above: Orders Start: 12-24-2022 Telephone encounter Hadley stubbs MD Work Phone: [facility] Comment on above: Results Start: 12-07-2022 End: 12-07-2022 ambulatory Hadley Fallon MD Work Phone: [facility] Comment on above: Arrived Start: 11-22-2022 End: 11-22-2022 Assay of hemosiderin, quant Hadley Fallon MD Work Phone: [facility] Work Phone: Start: 11-22-2022 End: 11-22-2022 Patient encounter procedure Hadley Fallon MD Work Phone: [facility] Comment on above: Routine general medi sherry examination at health care facility (Primary Dx); Primary hypertension; Elevated PSA; Vaccine refused by patient Start: 10-26-2022 End: 10-26-2022 Office outpatient visit 25 minutes Larissa Solares CNP Work Phone: [facility] Comment on above: Primary hypertension (Primary Dx); Dizziness Start: 10-18-2022 Telephone encounter Hadley stubbs MD Work Phone: [facility] Start: 09-06-2022 End: 09-06-2022 ambulatory Hadley Fallon MD Work Phone: [facility] Comment on above: Other specified abno rmal findings of blood chemistry (Primary Dx) Start: 09-05-2022 End: 09-05-2022 Office outpatient visit 25 minutes Hadley Fallon MD Work Phone: [facility] Medicine Comment on above: Primary hypertension (Primary Dx); Elevated TSH Start: 08-17-2022 ambulatory Bev Callahan RN [facility] Clin ical Communication Start: 08-17-2022 Patient encounter procedure Bev Callahan RN [facility] Clinical Communication Start: 08-15-2022 End: 08-15-2022 Office outpatient visit 15 minutes Matthew Perez PA-C Work Phone: [facility] Comment on above: Pain due to onychomy cosis of toenails of both feet (Primary Dx); Age-related physical debility; Enlarged and hypertrophic nails Start: 08-09-2022 End: 08-09-2022 ambulatory Hadley Fallon MD Work Phone: [facility] Laboratory Comment on above: Essential (primary) hypertension (Primary Dx) Start: 08-08-2022 End: 08-08-2022 Office outpatient visit 40 minutes Hadley Fallon MD Work Phone: [facility] Comment on above: Primary hypertension (Primary Dx); Dizziness and giddiness; Observed sleep apnea; Enlarged and hypertrophic nails; Newly recognized murmur Start: 05-28-2022 End: 05-28-2022 Patient encounter procedure Letty Shen APRN.CNP Work Phone: [facility] Comment on above: Elevated blood press ure reading (Primary Dx) Start: 11-30-2021 End: 11-30-2021 Subsequent hospital visit by physician Hadley Fallon MD Work Phone: [facility] X-Ray Comment on above: Injury of left knee, initial encounter Start: 09-01-2020 End: 09-01-2020 Emergency department patient visit Abilio Pike MD Work Phone: [facility] Comment on above: Epistaxis (Primary D x) Start: 08-28-2020 End: 08-28-2020 Emergency department patient visit Alex Nair MD Work Phone: [facility] Comment on above: Acute anterior epist axis (Primary Dx) Start: 01-30-2020 End: 01-30-2020 Emergency department patient visit Alex Nair Work Phone: [facility] Comment on above: Closed fracture of r ight foot, initial encounter (Primary Dx) Start: 12-05-2017 End: 12-05-2017 Patient encounter [facility] Start: 12-03-2017 End: 12-03-2017 Patient encounter [facility] Start: 11-28-2017 End: 11-28-2017 Patient encounter [facility] Start: 11-26-2017 End: 11-26-2017 Patient encounter [facility] Start: 11-21-2017 End: 11-21-2017 Patient encounter [facility] Start: 11-14-2017 End: 11-14-2017 Patient encounter [facility] Start: 11-07-2017 End: 11-07-2017 Patient encounter [facility] Procedures Date Procedure Procedure Detail Performing Clinician Start: 01-31-2024 Blood count complete automated Chani oMsquera PA-C Work Phone: Start: 01-30-2024 Cyanocobalamin vitamin b-12 Lin Wing MD Work Phone: Start: 01-30-2024 Blood typing serologic rh (d) Eliel G Dunlap PA-C Work Phone: Start: 01-30-2024 Renal function panel Eliel G Dunlap PA-C Work Phone: Start: 01-29-2024 Renal function panel Eliel Desiree Dunlap PA-C Work Phone: Start: 01-29-2024 Blood count complete automated Eliel Ramírez Dunlap PA-C Work Phone: Start: 01-28-2024 Renal function panel Eliel Desiree Dunlap PA-C Work Phone: Start: 01-28-2024 PULSE OXIMETRY, CONTINUOUS Abilio Hernández DO Work Phone: Start: 01-28-2024 XR tomography Unspecified body region Francia Giradr MD Work Phone: Start: 01-28-2024 End: 01-28-2024 Optx fem shft fx w/plate/screws w/wo cerclage Frederic Buernostro MD Work Phone: Start: 01-27-2024 Ct abdomen & pelvis w/contrast material Harini Rodriguez Leaver PA-C Work Phone: Start: 01-27-2024 VERAB/VERIFY ABORH Jaden Gonzalez MD Work Phone: Start: 01-27-2024 Radex hip unilateral with pelvis 2-3 views Jaden Gonzalez MD Work Phone: Start: 01-27-2024 Radiologic exam chest single view Francia Girard MD Work Phone: Start: 01-27-2024 Ecg routine ecg w/least 12 lds trcg only w/o i&r Francia Girard MD Work Phone: Start: 01-27-2024 Blood typing serologic rh (d) Francia Girard MD Work Phone: Start: 01-27-2024 Comprehensive metabolic panel Joey Robison MD Work Phone: Start: 01-27-2024 Radiologic examination femur minimum 2 views Dez Hoover PA-C Work Phone: Start: 01-27-2024 Ct lumbar spine w/o contrast material Dez Hoover PA-C Work Phone: Start: 01-27-2024 Ct pelvis w/o contrast material Dez Hoover PA-C Work Phone: Start: 11-22-2022 Adult depression screening assessment Hadley Fallon MD Work Phone: Start: 09-06-2022 Assay of free thyroxine Hadley Fallon MD Work Phone: Start: 08-09-2022 Assay of thyroid stimulating hormone tsh Hadley Fallon MD Work Phone: Start: 08-09-2022 Lipid panel Hadley Fallon MD Work Phone: Start: 08-09-2022 Lipid 1996 panel - Serum or Plasma Hadley Fallon MD Work Phone: Start: 01-30-2020 Radex foot complete minimum 3 views Alex Nair Work Phone: Vaccine refused by patient Vaccine refused by patient Hadley Fallon MD Work Phone: Plan of Treatment Date Care Activity Detail Author Start: 08-10-2027 Lipid panel Lipid Panel [facility] Start: 12-07-2025 Diabetes Screening Diabetes Screening [facility] Start: 03-17-2024 End: 03-17-2024 Patient encounter procedure 03/17/2024 2:00 PM EST [facility] [address] [facility] [address] [place] [address] Michelle Bragg PA-C [address] Department of Orthopedics [place], [place] [id number] [facility] Yessifrannie Eisenbergili Start: 03-11-2024 End: 03-11-2024 Patient encounter procedure 03/11/2024 1:40 PM EDT Office Visit [facility] [address] [place] [address] Hadley Fallon MD [address] [place] [address] [facility] Start: 02-14-2024 End: 02-14-2024 Patient encounter procedure 02/14/2024 11:15 AM EDT Office Visit [facility] [address] [facility] 5th [place] [address] Michelle Bragg PA-C [address] Department of Orthopedics [place], [place] [id number] [facility] Start: 01-12-2024 COVID-19 Vaccine () COVID-19 Vaccine () [facility] Start: 01-12-2024 COVID-19 Vaccine ( season) COVID-19 Vaccine ( season) [facility] Start: 01-12-2024 Influenza vaccination Influenza Vaccine (#1) [facility] Start: 11-25-2023 End: 11-25-2023 Patient encounter procedure 11/25/2023 10:20 AM EDT Office Visit [facility] [address] [place] [id number] Hadley Fallon MD [address] [place], [place] [id number] [facility] Start: 11-23-2023 Depression Screening Depression Screening [facility] Start: 05-13-2023 Advance Directive Discussion Advance Directive Discussion [facility] Start: 05-13-2023 Medicare Advantage Annual Wellness Visit Medicare [facility] Annual Wellness Visit [facility] Start: 01-11-2023 Covid-19 Vaccine ( season) Covid-19 Vaccine ( season) [facility] Start: 01-11-2023 Influenza vaccination [facility] Start: 01-08-2023 End: 01-08-2023 Patient encounter procedure 01/08/2023 8:00 AM EDT Appointment [facility] [address] [place] [phone] Hadley Fallon MD [address] [place], [place] [id number] [facility] Start: 11-22-2022 End: 11-23-2023 CBC panel - Blood by Automated count CBC Lab Routine Primary hypertension Expected: 11/22/2022 (Approximate), Expires: 11/23/2023 [facility] Work Phone: Comment on above: Expected: 11/22/2022 (Approximate), Expi res: 11/23/2023 Start: 11-22-2022 End: 11-23-2023 Comprehensive metabolic 1998 panel - Serum or Plasma Comprehensive metabolic panel Lab Routine Primary hypertension Expected: 11/22/2022 (Approximate), Expires: 11/23/2023 [facility] Comment on above: Expected: 11/22/2022 (Approximate), Expi res: 11/23/2023 Start: 11-22-2022 End: 11-23-2023 PSA screening PSA Screening Lab Routine Elevated PSA Expected: 11/22/2022 (Approximate), Expires: 11/23/2023 [facility] Comment on above: Expected: 11/22/2022 (Approximate), Expi res: 11/23/2023 Start: 11-22-2022 End: 11-22-2022 Patient encounter procedure [facility] Start: 10-29-2022 End: 10-29-2022 Patient encounter procedure 10/29/2022 Office Visit Family Medicine Hadley Fallon MD [address] [place] [address] [address] [place], [place] [phone] [facility] Start: 10-28-2022 Annual Wellness Visit (AWV) Annual Wellness Visit (AWV) [facility] Start: 10-27-2022 Depression Screen Depression Screen [facility] Start: 10-27-2022 Prostate specific antigen measurement Prostate Specific Antigen (PSA) Screening or Monitoring [facility] Start: 10-05-2022 End: 10-05-2022 Patient encounter procedure 10/05/2022 Office Visit Family Medicine Hadley Fallon MD [address] [place] [address] [address] [place], [place] [phone] [facility] Start: 10-01-2022 End: 10-01-2022 Patient encounter procedure 10/01/2022 Appointment Cardiology [facility] Start: 09-25-2022 End: 09-25-2022 Patient encounter procedure 09/25/2022 Office Visit Sleep Medicine Hadley Fallon MD [address] [place] [address] [address] [place], [place] [phone] [facility] Start: 09-05-2022 End: 09-06-2023 Thyrotropin [Units/volume] in Serum or Plasma TSH Lab Routine Primary hypertension Elevated TSH Expected: 09/05/2022 (Approximate), Expires: 09/06/2023 [facility] [employer] Work Phone: Comment on above: Expected: 09/05/2022 (Approximate), Expi res: 09/06/2023 Start: 09-05-2022 End: 09-06-2023 Thyroxine (T4) free [Mass/volume] in Serum or Plasma T4, free Lab Routine Elevated TSH Expected: 09/05/2022 (Approximate), Expires: 09/06/2023 [facility] [employer] Comment on above: Expected: 09/05/2022 (Approximate), Expi res: 09/06/2023 Start: 09-05-2022 End: 09-06-2023 Triiodothyronine (T3) [Mass/volume] in Serum or Plasma T3 Lab Routine Elevated TSH Expected: 09/05/2022 (Approximate), Expires: 09/06/2023 [facility] Comment on above: Expected: 09/05/2022 (Approximate), Expi res: 09/06/2023 Start: 09-05-2022 End: 09-05-2022 Patient encounter procedure 09/05/2022 Office Visit Family Medicine Hadley Fallon MD [facility] [place] [address] [facility] Start: 08-08-2022 End: 08-09-2023 Home sleep test Home sleep test Sleep Center Routine Primary hypertension Observed sleep apnea Expected: 08/08/2022 (Approximate), Expires: 08/09/2023 [facility] [employer] Work Phone: Comment on above: Expected: 08/08/2022 (Approximate), Expi res: 08/09/2023 Start: 08-08-2022 End: 08-09-2023 Lipid 1996 panel - Serum or Plasma Lipid panel Lab Routine Primary hypertension Expected: 08/08/2022 (Approximate), Expires: 08/09/2023 [facility] Comment on above: Expected: 08/08/2022 (Approximate), Expi res: 08/09/2023 Start: 08-08-2022 End: 08-09-2023 Thyrotropin [Units/volume] in Serum or Plasma TSH Lab Routine Primary hypertension Expected: 08/08/2022 (Approximate), Expires: 08/09/2023 [facility] Comment on above: Expected: 08/08/2022 (Approximate), Expi res: 08/09/2023 Start: 08-08-2022 End: 08-08-2024 US Heart Transthoracic Transthoracic echocardiogram (TTE) limited with contrast, bubble, strain, and 3D PRN CV Echocardiography Routine Newly recognized murmur Expected: 08/08/2022 (Approximate), Expires: 08/08/2024 [facility] Comment on above: Expected: 08/08/2022 (Approximate), Expi res: 08/08/2024 Start: 05-13-2022 ADVANCE DIRECTIVE DISCUSSION ADVANCE DIRECTIVE DISCUSSION [facility] Start: 05-13-2022 DEPRESSION ASSESSMENT DEPRESSION ASSESSMENT [facility] Start: 01-11-2022 Influenza vaccination [facility] Start: 01-11-2021 Influenza vaccination Flu vaccine (Season Ended) [facility] Work Phone: Start: 02-05-2020 Annual Wellness Visit (AWV) Annual Wellness Visit (AWV) [facility] Work Phone: Start: 01-12-2020 Influenza vaccination Flu vaccine (#1) [place], [place] Start: 2014 RSV High Risk: (Elderly (60+) or Population) (1 - 1-dose 75+ series) RSV High Risk: (Elderly (60+) or Population) (1 - 1-dose 75+ series) [facility] Start: 07-18-2013 DIABETES SCREEN DIABETES SCREEN [facility] Start: 07-18-2013 Diabetes Screening Diabetes Screening [facility] Start: 2004 Pneumococcal 65+ years Vaccine (1 - PCV) Pneumococcal 65+ years Vaccine (1 - PCV) [facility] Start: 2004 Pneumococcal 65+ years Vaccine (1 of 1 - PPSV23) Pneumococcal 65+ years Vaccine (1 of 1 - PPSV23) [place] Start: 2004 Pneumococcal Vaccine: 65+ (1 - PCV) Pneumococcal Vaccine: 65+ (1 - PCV) [facility] Start: 2004 Pneumococcal Vaccine: 65+ (1 of 1 - PCV) Pneumococcal Vaccine: 65+ (1 of 1 - PCV) [facility] Start: 2004 Pneumococcal Vaccine: 65+ Years (1 - PCV) Pneumococcal Vaccine: 65+ Years (1 - PCV) [facility] Start: 2004 Pneumococcal Vaccine: 65+ Years (1 of 1 - PCV) Pneumococcal Vaccine: 65+ Years (1 of 1 - PCV) [facility] Start: 2004 PNEUMOCOCCAL: 65+ (1 - PCV) PNEUMOCOCCAL: 65+ (1 - PCV) [facility] Start: 1999 RSV Immunization aged 60 or older (1 - 1-dose 60+ series) RSV Immunization aged 60 or older (1 - 1-dose 60+ series) [facility] Start: 1999 RSV patients and/or patients aged 60+ years (1 - 1-dose 60+ series) RSV patients and/or patients aged 60+ years (1 - 1-dose 60+ series) [facility] Start: 1999 RSV Vaccine (1 - 1-dose 60+ series) RSV Vaccine (1 - 1-dose 60+ series) [facility] Start: 1989 Shingles Vaccine (1 of 2) Shingles Vaccine (1 of 2) [facility] Start: 1989 SHINGRIX VACCINE (1 of 2) SHINGRIX VACCINE (1 of 2) [facility] Start: 1989 Zoster Vaccines (1 of 2) Zoster Vaccines (1 of 2) [facility] Start: 1961 DTaP/Tdap/Td Vaccines (1 - Tdap) DTaP/Tdap/Td Vaccines (1 - Tdap) [facility] Start: 1958 DTaP/Tdap/Td vaccine (1 - Tdap) DTaP/Tdap/Td vaccine (1 - Tdap) [facility] Start: 1958 DTaP/Tdap/Td Vaccines (1 - Tdap) DTaP/Tdap/Td Vaccines (1 - Tdap) [facility] Start: 1958 Urine microalbumin profile [facility] Start: 1957 Anxiety Screening Anxiety Screening [facility] Start: 1957 Depression Screening Depression Screening [facility] Start: 1955 COVID-19 Vaccine (1) COVID-19 Vaccine (1) [facility] Work Phone: Start: 1951 Depression Screening Depression Screening [facility] Start: 1939 COVID-19 Vaccine (#1) COVID-19 Vaccine (#1) [facility] Start: 1939 Annual wellness visit Welcome to Medicare Visit [facility] Start: 1939 Hepatitis B Vaccines (1 of 3 - 3-dose series) Hepatitis B Vaccines (1 of 3 - 3-dose series) [facility] Start: 1939 Medicare Annual Wellness Visit Medicare Annual Wellness Visit (AWV) [facility] End: 01-27-2024 ECG 12 Lead [facility] Service Area Work Phone: Comment on above: Once for 1 Occurrences starting 01/27/20 until 01/27/2024 End: 01-27-2024 Incentive spirometry Instruct Incentive spirometry Instruct Respiratory Care Routine Once for 1 Occurrences starting 01/27/2024 until 01/27/2024 [facility] Work Phone: Comment on above: Once for 1 Occurrences starting 01/27/20 until 01/27/2024 OUTSIDE PROCEDURE SCAN OUTSIDE P ROCEDURE SCAN Procedures Ordered: 08/09/2022 [facility] Comment on above: Ordered: 08/09/2022 OUTSIDE PROCEDURE SCAN OUTSIDE P ROCEDURE SCAN Procedures Ordered: 09/06/2022 [facility] Comment on above: Ordered: 09/06/2022 OUTSIDE PROCEDURE SCAN OUTSIDE P ROCEDURE SCAN Procedures Ordered: 12/07/2022 [facility] Comment on above: Ordered: 12/07/2022 Removal impacted cer umen irrigation/lvg unilat AMBULATORY EAR LAVAGE/IRRIGATION Procedures Routine Bilateral impacted cerumen Ordered: 01/02/2024 [facility] Work Phone: Comment on above: Ordered: 01/02/2024 End: 02-19-2024 XR Femur - left 2 Views [facility] Service Are a Work Phone: Comment on above: Once for 1 Occurrences starting 02/19/20 until 02/19/2024 End: 04-16-2024 XR Femur - left 2 Views [facility] Service Are a Work Phone: Comment on above: Once for 1 Occurrences starting 04/16/20 until 04/16/2024 End: 11-30-2021 XR KNEE LEFT (3 VIEWS) [facility] Work Phone: Comment on above: 1 Occurrences starting 11/30/2021 until 11/30/2021 End: 04-16-2024 XR Pelvis 1 or 2 Views [facility] Service Area Work Phone: Comment on above: Once for 1 Occurrences starting 04/16/20 until 04/16/2024 Payers Date Payer Category Payer Medicare (Managed Care) [facility] [id number] 2023 Unknown [id number] 2022 Medicare [id number] 2020 Unknown [id number] 2019 Unknown [id number] 1939 Unknown [id number] [id number] 1939 Unknown [id number] [id number] 1939 Unknown [id number] [id number] 1939 Unknown [id number] [id number] 1939 Unknown [id number] [id number] 1939 Unknown [id number] [id number] 1939 Unknown [id number] [id number] 1939 Unknown [id number] [id number] 1939 Unknown [id number] [id number] Social History Date Type Detail Facility Tobacco smoking status KYIS Unknown if ever smoked [place], [place] Start: 1940 Sex Assigned At Not on file M [place], [place] Start: 11-20-2021 End: 04-16-2024 Exposure to SARS-CoV-2 (event) Not sure [place] Start: 08-28-2020 End: 08-15-2022 Tobacco smoking status NHIS Former smoker [facility] Start: 12-09-1974 End: 02-04-1990 History of tobacco use Current smoker [facility] Start: 08-28-2020 End: 01-28-2024 Tobacco use and exposure Never used [facility] Start: 08-28-2020 End: 01-28-2024 Alcohol intake Current drinker of alcohol (finding) [facility] Work Phone: Start: 12-09-1974 End: 02-04-1990 History of tobacco use Cigarette Smoker [facility] Work Phone: Start: 10-27-2021 History SDOH Alcohol Frequency 2 [facility] Work Phone: Start: 10-27-2021 History SDOH Alcohol Std Drinks 1 [facility] Work Phone: Start: 10-27-2021 History SDOH Alcohol Comment occ [facility] Work Phone: Start: 10-27-2021 History SDOH Physica l Activity DPW 7 [facility] Work Phone: Start: 10-27-2021 History SDOH Physica l Activity MPS 3 [facility] Work Phone: Start: 10-27-2021 History SDOH Financial 5 [facility] Work Phone: Start: 02-05-2022 End: 01-29-2024 Cigarettes smoked current (pack per day) - Reported 3 [facility] Start: 04-22-2019 Alcohol Comment Occasionally [facility] Start: 08-08-2022 Alcohol Comment half of a glas s of wine with dinner [facility] Start: 10-26-2022 End: 01-29-2024 Tobacco use panel [facility] How often to you hav e a drink containing alcohol? 4 or more times a week [facility] How many standard drinks containing alcohol do you have on a typical day? 1 or 2 [facility] How often do you hav e 6 or more drinks on 1 occasion? Never [facility] National Score (1-100), lower number is lower risk 65 [facility] Start: 01-28-2024 Tobacco smoking status NHIS Never smoked tobacco [facility] How often to you hav e a drink containing alcohol? 2-3 time sa week [facility] Work Phone: How many standard drinks containing alcohol do you have on a typical day? 3 or 4 [facility] Work Phone: In the past 12 months, was there a time when you were not able to pay the mortgage or rent on time? No [facility] Work Phone: Tobacco smoking status NHIS Tobacco smoking consumption unknown [facility] Work Phone: NEGATED: Highlighted rowStart: NINF History of tobacco use Passive smoker [facility] Work Phone: Medical Equipment Procedure Code Equipment Code Equipment Origin al Text Equipment Identifier Dates Screw, Variable Angle, 46mm, Locking, St - [id number] [place] Start: 01-28-2024 Screw, Variable Angle, 44mm, Locking, St - [id number] Start: 01-28-2024 Screw, Variable Angle, 40mm, Locking, St - [id number] Start: 01-28-2024 Screw, Variable Angle, 36mm, Locking, St - [id number] Start: 01-28-2024 Screw, Variable Angle, 32mm, Locking, St - [id number] Start: 01-28-2024 Screw, Varable Angle Lkg, Self Tap, 3.5 X 38mm - [id number] Start: 01-28-2024 Cable W/Crimp, 1 .7 X 750mm, Ss, Sterile - [id number] Start: 01-28-2024 Screw, Cortical, Self-Tapping, 4.5 X 38 Mm, Stainless Steel - [id number] Start: 01-28-2024 Screw, Lock 5.[address] T25 - [id number] Start: 01-28-2024 Cable W/Crimp, 1 .7 X 750mm, Ss, Sterile - [id number] Start: 01-28-2024 Pin 4.5 Cerclage Positioning - [id number] Start: 01-28-2024 Comment on above: Description: per neil l only jdr 01/28 Screw, Variable Angle, 50mm, Locking, St - [id number] Start: 01-28-2024 Connecting Screw F/Vavppfx Gt Ring Attchmt Plate [id number] Start: 01-28-2024 Comment on above: Description: per neil l only jdr 01/28 8 Hole Ppfx Plate [id number] Start: 01-28-2024 Comment on above: Description: per neil l only jdr 01/28 Gt Attach Plate [id number] Start: 01-28-2024 Comment on above: Description: per neil l only jdr 01/28 Clinical Notes 08-28-2020 to 02-19-2024 Michelle Bragg PA-C - 02/19/2024 3:15 PM EDTPatient InstructionsRachelle Linda, RN - 02/04/2024 11:38 AM Paola Mckeon RN - 02/04/2024 11:38 AM Kiara De Luna PTA - 02/04/2024 11:11 AM EDT Note Date & Type Note Facility 02-19-2024 History of Present illness Narrative History of Present Illness Patrice Joel is a 83 y.o. male presenting today for post-op check from [facility] left periprosthetic proximal femur fracture on 01/28/2024. Overall doing ok. Has mild pain that is not requiring narcotics for pain control. Is currently at a alf facility for rehab at this time, but anticipates discharge home sometime soon as he is getting around quite well with his weightbearing limitation. Incisions are well healing but with a small amount of redness immediately around the marlin. Compliant with WB recommendations. Denies numbness, tingling, f/c, CP, SOB or any other complaints or concerns. Past Medical History: Diagnosis Date Arthritis Asthma GERD (gastroesophageal reflux disease) HL (hearing loss) Hypertension Joint pain Sleep apnea Vision loss Medication Documentation Review Audit Reviewed by Ki Jorgensen on 02/19/24 at 1552 Medication Order Taking? Sig Documenting Provider Last Dose Status acetaminophen (Tylenol) 325 mg tablet [id number] Take 3 tablets (975 mg) by mouth every 8 hours. Praful Sol PA-C Active bisacodyl (Dulcolax) 10 mg suppository [id number] Insert 1 suppository (10 mg) into the rectum once daily. Praful Sol PA-C Active calcium carbonate (Tums) 200 mg calcium chewable tablet [id number] Chew 1 tablet (500 mg) 4 times a day as needed for indigestion or heartburn. Praful Sol PA-C Active calcium carbonate-vitamin D3 (Oscal-500) 500 mg-10 mcg (400 unit) tablet [id number] Take 1 tablet by mouth 2 times a day. Jonah Taylor MD Active enoxaparin (Lovenox) 30 mg/0.3 mL syringe [id number] Inject 0.3 mL (30 mg) under the skin every 12 hours. Praful Ebenezer, PA-C Active guaiFENesin (Mucinex) 600 mg 12 hr tablet [id number] Take 1 tablet (600 mg) by mouth 2 times a day as needed for cough. Do not crush, chew, or split. Praful Ebenezer, PA-C Active magnesium hydroxide (Milk of Magnesia) 400 mg/5 mL suspension [id number] Take 30 mL by mouth once daily. Praful Ebenezer, PA-C Active ondansetron (Zofran) 4 mg/2 mL injection [id number] Infuse 2 mL (4 mg) into a venous catheter every 4 hours if needed for nausea or vomiting. Praful Ebenezer, PA-C Active polyethylene glycol (Glycolax, Miralax) 17 gram packet [id number] Take 17 g by mouth 2 times a day. Praful Ebenezer, PA-C Active sennosides (Senokot) 8.6 mg tablet [id number] Take 1 tablet (8.6 mg) by mouth 2 times a day. Praful Ebenezer, PA-C Active Allergies Allergen Reactions Codeine Anaphylaxis Morphine Anaphylaxis Social History Socioeconomic History Marital status: Spouse name: Not on file Number of children: Not on file Years of education: Not on file Highest education level: Not on file Occupational History Not on file Tobacco Use Smoking status: Never Passive exposure: Never Smokeless tobacco: Never Vaping Use Vaping status: Never Used Substance and Sexual Activity Alcohol use: Yes Alcohol/week: 1.0 standard drink of alcohol Types: 1 Glasses of wine per week Drug use: Never Sexual activity: Defer Other Topics Concern Not on file Social History Narrative Not on file Social Determinants of Health Financial Resource Strain: Low Risk (01/29/2024) Overall Financial Resource Strain (CARDIA) Difficulty of Paying Living Expenses: Not hard at all Food Insecurity: No Food Insecurity (10/27/2021) Received from [facility] Hunger Vital Sign Worried About Running Out of Food in the Last Year: Never true Ran Out of Food in the Last Year: Never true Transportation Needs: No Transportation Needs (01/29/2024) PRAPARE - Transportation Lack of Transportation (Medical): No Lack of Transportation (Non-Medical): No Physical Activity: Sufficiently Active (10/27/2021) Received from [facility] Exercise Vital Sign Days of Exercise per Week: 7 days Minutes of Exercise per Session: 30 min Stress: No Stress Concern Present (10/27/2021) Received from [facility] [place] [facility] - Occupational Stress Questionnaire Feeling of Stress : Not at all Social Connections: Not on file Intimate Partner Violence: Not on file Housing Stability: Low Risk (01/29/2024) Housing Stability Vital Sign Unable to Pay for Housing in the Last Year: No Number of Times Moved in the Last Year: 0 Homeless in the Last Year: No Past Surgical History: Procedure Laterality Date FOOT SURGERY HIP ARTHROPLASTY SEPTOPLASTY Review of Systems: 30 point ROS reviewed and negative other than as listed in the HPI Physical Exam: Gen: The pt is A&Ox3, NAD, and appear state age and weight Psychiatric: mood and affect are appropriate Eyes: sclera are white, EOM grossly intact ENT: MMM Neck: supple, thyroid is midline Respiratory: respirations are nonlabored, chest rise symmetric CV: rate is regular by palpation of distal pulses Abdomen: nondistended Integument: no obvious cutaneous lesions noted. No signs of lymphangitis. No signs of systemic edema. MSK: Left thigh surgical incision well healing without edema, erythema, drainage, or other s/sx of infection. Appropriately tender to palpation around the incision. SILT throughout the leg intact. Intact plantarflexion and dorsiflexion. Foot warm and well perfused. Imaging: I personally reviewed multiple views of the pelvis and left femur were obtained in the office today demonstrate maintenance of reduction, interval healing, and a stable position of the hardware. Assessment 83 y.o. male post-op from ORIF left periprosthetic proximal femur fracture on 01/28/2024. Plan: Continue NWB on left lower extremity Incisions well healing; sutures/marlin removed in office and steri's placed with wound care instructed. Upon staple removal in the office the redness that he was having was already visually improving. Continue DVT ppx and vit d/calcium for bone health Follow-up 1 month with weightbearing AP pelvis and 2 views left femur. All of the patient's questions/concerns address and they are in agreement with the plan. documented in this encounter [facility] Work Phone: 02-19-2024 Instructions Michelle Bragg PA-C - 02/19/2024 3:15 PM EDT Continue no weightbearing on the left lower extremity at this time. Incision well-healing, marlin were removed in the office today and he is okay to shower. Allow soap and water to wash over the wound, pat dry, and leave open to air. Allow Steri-Strips to fall off on their own but if they are still on week can be removed. Follow-up 4 weeks as scheduled to hopefully advance weightbearing. Michelle Bragg PA-C [phone] documented in this encounter [facility] Work Phone: 02-04-2024 Nurse Note Four eyes completed with Deborah Perry. [facility] 02-04-2024 Nurse Note Four eyes completed with Deborah Perry. documented in this encounter [facility] Work Phone: 02-04-2024 History of Present illness Narrative Auth received for [facility]. [employer] requested 1330 stretcher transport. Pending Roundtrip confirmation. [facility] complete and sent to SNF. 7000 completed. Will follow up on transport. 1203[facility] Care confirmed 230 stretcher transport for discharge to [facility]. Report # [phone]. SW updated TCC, team, SNF, daughter, patient, and the floor. [facility] Physical Therapy Treatment Patient Name: Patrice Joel Department: [place] [id number] Room: [address] [place] [address] Today's Date: 02/04/2024 Time Calculation Start Time: 1015 Stop Time: 1039 Time Calculation (min): 24 min Assessment/Plan PT Assessment End of Session Communication: Bedside nurse Assessment Comment: . End of Session Patient Position: Bed, 3 rail up, Alarm on PT Plan Inpatient/Swing Bed or Outpatient: Inpatient PT Plan Treatment/Interventions: Bed mobility, Transfer training, Gait training, Stair training, Balance training, Neuromuscular re-education, Strengthening, Endurance training, Range of motion, Therapeutic exercise, Therapeutic activity, Positioning PT Plan: Ongoing PT PT Frequency: 6 times per week PT Discharge Recommendations: Moderate intensity level of continued care Equipment Recommended upon Discharge: Wheeled walker PT Recommended Transfer Status: Assist x1, Assist x2, Assistive device PT - OK to Discharge: Yes General Visit Information: PT Visit PT Received On: 02/04/24 General Prior to Session Communication: Bedside nurse Patient Position Received: Bed, 3 rail up, Alarm on General Comment: pt supine upon entering. pt stated I feel I'm getting a little stronger. pt requiring cues throughout session to maintain NWB L LE. pt verbalized completing HEP exercises, VACUUM DRIER TENDER attempted to provide additional exercises however pt will need continued education demonstrating little understanding of assisted UE dips in chair with arms. Subjective Precautions: Precautions LE Weight Bearing Status: Left Non-Weight Bearing Medical Precautions: Fall precautions Vital Signs (Past 2hrs) Objective Pain: Pain Assessment 0-10 (Numeric) Pain Score: 0 - No pain Cognition: Cognition Orientation Level: Oriented X4 Treatments: Therapeutic Exercise Therapeutic Exercise Activity 1: sitting LAQ x15 reps AROM Therapeutic Exercise Activity 2: sitting R LE assisted dips in chair with arms x3 reps AROM Bed Mobility 1 Bed Mobility 1: Supine to sitting Level of Assistance 1: Close supervision Bed Mobility Comments 1: HOB elevated, additional time to complete Ambulation/Gait Training Ambulation/Gait Training Performed: Yes Ambulation/Gait Training 1 Surface 1: Level tile Device 1: Rolling walker Assistance 1: Minimum assistance Quality of Gait 1: Narrow base of support Comments/Distance (ft) 1: 3' laterally to chair, max cues to maintain NWB L LE and walker sequencing Transfers Transfer: Yes Transfer 1 Technique 1: Sit to stand, Stand to sit Transfer Device 1: Walker Transfer Level of Assistance 1: Minimum assistance Trials/Comments 1: cues for weight shifting and to maintain NWB Outcome Measures: [facility] Basic Mobility Turning from your back to your side while in a flat bed without using bedrails: A little Moving from lying on your back to sitting on the side of a flat bed without using bedrails: A lot Moving to and from bed to chair (including a wheelchair): A little Standing up from a chair using your arms (e.g. wheelchair or bedside chair): A lot To walk in hospital room: A lot Climbing 3-5 steps with railing: Total Basic Mobility - Total Score: 13 Education Documentation Body Mechanics, taught by Fermin De Luna VACUUM DRIER TENDER at 02/04/2024 11:10 AM. Learner: Patient Readiness: Acceptance Method: Explanation Response: Verbalizes Understanding Education Comments No comments found. OP EDUCATION: Encounter Problems Encounter Problems (Active) PT Problem Pt will complete bed mobility with Lee Ann or less to promote improved ability to exit the bed (Progressing) Start: 01/29/24 Expected End: 02/12/24 Pt will be able to perform sit<->stand and bed<->chair with modAx1 or less and LRAD to promote improved mobility (Progressing) Start: 01/29/24 Expected End: 02/12/24 Pt will be able to ambulate 10 ft with modA and LRAD while maintaining L LE non WB status (Progressing) Start: 01/29/24 Expected End: 02/12/24 Pt will report compliance with there-ex program to promote improved outcomes (Progressing) Start: 01/29/24 Expected End: 02/12/24 Pain - Adult Occupational Therapy OT Treatment Patient Name: Patrice Joel Department: [facility] 6 Room: [facility] Today's Date: 02/03/2024 Time Calculation Start Time: 1025 Stop Time: 1035 Time Calculation (min): 10 min Assessment: OT Assessment: difficulty I/ADLs, safety, fxnl mob Prognosis: Good Barriers to Discharge: Decreased caregiver support Evaluation/Treatment Tolerance: Patient limited by fatigue Medical Staff Made Aware: Yes End of Session Communication: Bedside nurse End of Session Patient Position: Bed, 3 rail up, Alarm on OT Assessment Results: Decreased ADL status, Decreased upper extremity strength, Decreased safe judgment during ADL, Decreased endurance, Decreased fine motor control, Decreased functional mobility Prognosis: Good Barriers to Discharge: Decreased caregiver support Evaluation/Treatment Tolerance: Patient limited by fatigue Medical Staff Made Aware: Yes Strengths: Attitude of self Barriers to Participation: Comorbidities Plan: Treatment Interventions: ADL retraining, Functional transfer training, Endurance training, UE strengthening/ROM, Patient/family training, Equipment evaluation/education, Compensatory technique education OT Frequency: 3 times per week OT Discharge Recommendations: Moderate intensity level of continued care Equipment Recommended upon Discharge: Wheeled walker OT Recommended Transfer Status: Assist of 2 OT - OK to Discharge: Yes Treatment Interventions: ADL retraining, Functional transfer training, Endurance training, UE strengthening/ROM, Patient/family training, Equipment evaluation/education, Compensatory technique education Subjective Previous Visit Info: OT Last Visit OT Received On: 02/03/24 General: General Reason for Referral: L periprosthetic femur fracture Family/Caregiver Present: No Prior to Session Communication: Bedside nurse Patient Position Received: Bed, 3 rail up, Alarm on General Comment: declined OOB agreeable ther ex bed leve Precautions: Hearing/Visual Limitations: ALGAACIQ LE Weight Bearing Status: Left Non-Weight Bearing Medical Precautions: Fall precautions Vital Signs (Past 2hrs) Pain: Pain Assessment Pain Assessment: 0-10 0-10 (Numeric) Pain Score: 0 - No pain Objective Cognition: Cognition Overall Cognitive Status: Within Functional Limits Orientation Level: Oriented X4 Coordination: Activities of Daily Living: UE Dressing UE Dressing Level of Assistance: (adjusted gown I supine) Therapy/Activity: Therapeutic Exercise Therapeutic Exercise Activity 1: OT administered red mild resistance band and green mod resistance band pt performed 1x10 reps BUE shoulder ab/adduction, elbow flex/ext, shoulder int/ext rotation, chest press with scap retraction Outcome Measures:[facility] Daily Activity Putting on and taking off regular lower body clothing: A lot Bathing (including washing, rinsing, drying): A lot Putting on and taking off regular upper body clothing: None Toileting, which includes using toilet, bedpan or urinal: A lot Taking care of personal grooming such as brushing teeth: A little Eating Meals: None Daily Activity - Total Score: 17 Education Documentation Body Mechanics, taught by Whitney Hartman OT at 02/03/2024 11:19 AM. Learner: Patient Readiness: Acceptance Method: Explanation Response: Verbalizes Understanding, Needs Reinforcement Precautions, taught by Whitney Hartman OT at 02/03/2024 11:19 AM. Learner: Patient Readiness: Acceptance Method: Explanation Response: Verbalizes Understanding, Needs Reinforcement ADL Training, taught by Whitney Hartman OT at 02/03/2024 11:19 AM. Learner: Patient Readiness: Acceptance Method: Explanation Response: Verbalizes Understanding, Needs Reinforcement Education Comments No comments found. Goals: Encounter Problems Encounter Problems (Active) ADLs Patient with complete upper body dressing with independent level of assistance donning and doffing all UE clothes with PRN adaptive equipment while edge of bed (Progressing) Start: 01/29/24 Expected End: 02/19/24 Patient with complete lower body dressing with modified independent level of assistance donning and doffing socks and shoes with PRN adaptive equipment while edge of bed. (Progressing) Start: 01/29/24 Expected End: 02/19/24 Patient will complete daily grooming tasks brushing teeth and washing face/hair with independent level of assistance and PRN adaptive equipment while edge of bed . (Progressing) Start: 01/29/24 Expected End: 02/19/24 BALANCE Pt will maintain dynamic standing balance during ADL task with modified independent level of assistance with least restrictive device in order to demonstrate decreased risk of falling and improved postural control. (Progressing) Start: 01/29/24 Expected End: 02/19/24 COGNITION/SAFETY Patient will recall and adhere to non weight bearing precautions with all ADL and functional mobility in order to promote healing and safety with functional tasks (Progressing) Start: 01/29/24 Expected End: 02/19/24 EXERCISE/STRENGTHENING Patient with increase BUE to wfl strength. (Progressing) Start: 02/03/24 Expected End: 03/02/24 MOBILITY Patient will perform Functional mobility max Household distances/Community Distances with modified independent level of assistance and least restrictive device in order to improve safety and functional mobility. (Progressing) Start: 01/29/24 Expected End: 02/19/24 TRANSFERS Patient will perform bed mobility independent level of assistance and bed rails in order to improve safety and independence with mobility (Progressing) Start: 01/29/24 Expected End: 02/19/24 Patient will complete sit to stand transfer with modified independent level of assistance and least restrictive device in order to improve safety and prepare for out of bed mobility. (Progressing) Start: 01/29/24 Expected End: 02/19/24 [facility]; direct precert team confirmed precert was initiated over the weekend. [employer] sent updates to SNF. Pending precert. Will continue to follow. [facility] Physical Therapy Treatment Patient Name: Patrice Joel Today's Date: 02/03/2024 Room: [address] [place] [address] Time Calculation Start Time: 824 Stop Time: 904 Time Calculation (min): 40 min Assessment/Plan PT Assessment PT Assessment Results: Decreased strength, Decreased endurance, Impaired balance, Decreased mobility, Orthopedic restrictions Rehab Prognosis: Good Evaluation/Treatment Tolerance: Patient tolerated treatment well Medical Staff Made Aware: Yes Strengths: Attitude of self Barriers to Participation: Comorbidities End of Session Communication: Bedside nurse End of Session Patient Position: Alarm on, Up in chair PT Plan Inpatient/Swing Bed or Outpatient: Inpatient PT Plan Treatment/Interventions: Bed mobility, Transfer training, Gait training, Stair training, Balance training, Neuromuscular re-education, Strengthening, Endurance training, Range of motion, Therapeutic exercise, Therapeutic activity, Positioning PT Plan: Ongoing PT PT Frequency: 6 times per week PT Discharge Recommendations: Moderate intensity level of continued care Equipment Recommended upon Discharge: Wheeled walker PT Recommended Transfer Status: Assist x1, Assist x2, Assistive device PT - OK to Discharge: Yes Assessment: Patient is progressing Well with therapy this date. Demos some improvement keeping LLE off ground. General Visit Information: PT Visit PT Received On: 02/03/24 Prior to Session Communication: Bedside nurse Patient Position Received: Bed, 3 rail up, Alarm on Subjective Subjective: Pt pleasant and agreeable to therapy upon approach Precautions: Precautions Hearing/Visual Limitations: ALGAACIQ LE Weight Bearing Status: Left Non-Weight Bearing Medical Precautions: Fall precautions Objective Pain: Pain Assessment Pain Assessment: 0-10 0-10 (Numeric) Pain Score: 5 - Moderate pain Pain Type: Surgical pain Pain Location: Leg Pain Orientation: Left Pain Interventions: Medication (See MAR), Repositioned Cognition: Cognition Overall Cognitive Status: Within Functional Limits Orientation Level: Oriented X4 Insight: Within function limits Impulsive: Mildly Static Sitting balance: Static Sitting Balance Static Sitting-Balance Support: Feet supported, Bilateral upper extremity supported Static Sitting-Level of Assistance: Close supervision Static Sitting-Comment/Number of Minutes: 5m, pt reports decreased dizziness PT Treatments: Therapeutic Exercise Therapeutic Exercise Activity 1: 8x2 SAQ, heel slides, 15x DF/PF with LLE. Assisted but able to progress to SBA level with cues. Educated pt to complete supine therex at least once a day while at hospital (pt has handout from previous sessions) Therapeutic Activity Therapeutic Activity 1: Pt educated on SNF rec, pt reports anxiety about DC planning, anxious to be independent again. Bed Mobility 1 Bed Mobility 1: Supine to sitting Level of Assistance 1: Close supervision Bed Mobility Comments 1: HOB elevated, pt able to get LLE off bed by self using RLE Transfer 1 Transfer From 1: Sit to Transfer to 1: Stand Transfer Device 1: Walker Transfer Level of Assistance 1: Moderate assistance, Moderate verbal cues Trials/Comments 1: vc for handplacement and to maintain NWB, kicking LLE out prior to sitting/standing Transfers 2 Transfer From 2: Stand to Transfer to 2: Chair with arms Technique 2: Stand pivot Transfer Device 2: Walker Transfer Level of Assistance 2: Minimum assistance, Moderate verbal cues Trials/Comments 2: x1 vc to keep LLE off ground with increased DF. Pt able to demo slight improvement with maintaining NWB Activity tolerance: Activity Tolerance Endurance: Decreased tolerance for upright activites Outcome Measures: [facility] Basic Mobility Turning from your back to your side while in a flat bed without using bedrails: A little Moving from lying on your back to sitting on the side of a flat bed without using bedrails: A little Moving to and from bed to chair (including a wheelchair): A little Standing up from a chair using your arms (e.g. wheelchair or bedside chair): A lot To walk in hospital room: Total Climbing 3-5 steps with railing: Total Basic Mobility - Total Score: 13 Education Documentation Precautions, taught by Kaleigh Hale PTA at 02/03/2024 9:23 AM. Learner: Patient Readiness: Acceptance Method: Explanation Response: Verbalizes Understanding Body Mechanics, taught by Kaleigh Hale PTA at 02/03/2024 9:23 AM. Learner: Patient Readiness: Acceptance Method: Explanation Response: Verbalizes Understanding Mobility Training, taught by Kaleigh Hale PTA at 02/03/2024 9:23 AM. Learner: Patient Readiness: Acceptance Method: Explanation Response: Verbalizes Understanding Body Mechanics, taught by Kaleigh Hale PTA at 02/03/2024 9:23 AM. Learner: Patient Readiness: Acceptance Method: Explanation Response: Verbalizes Understanding Precautions, taught by Kaleigh Hale PTA at 02/03/2024 9:23 AM. Learner: Patient Readiness: Acceptance Method: Explanation Response: Verbalizes Understanding ADL Training, taught by Kaleigh Hale PTA at 02/03/2024 9:23 AM. Learner: Patient Readiness: Acceptance Method: Explanation Response: Verbalizes Understanding Education Comments No comments found. OP EDUCATION: Encounter Problems Encounter Problems (Active) PT Problem Pt will complete bed mobility with Lee Ann or less to promote improved ability to exit the bed (Progressing) Start: 01/29/24 Expected End: 02/12/24 Pt will be able to perform sit<->stand and bed<->chair with modAx1 or less and LRAD to promote improved mobility (Progressing) Start: 01/29/24 Expected End: 02/12/24 Pt will be able to ambulate 10 ft with modA and LRAD while maintaining L LE non WB status (Progressing) Start: 01/29/24 Expected End: 02/12/24 Pt will report compliance with there-ex program to promote improved outcomes (Progressing) Start: 01/29/24 Expected End: 02/12/24 Pain - Adult [facility] TRAUMA SERVICE - PROGRESS NOTE Patient Name: Patrice Joel Admit Date: [id number] : 1940 AGE: 83 y.o. GENDER: male MECHANISM OF INJURY: 83M tx from [place] after mGLF LOC (yes/no?): no Anticoagulant / Anti-platelet Rx? (for what dx?): no Referring Facility Name (N/A for scene EMR run): [place] INJURIES: L periprosthetic femur fracture OTHER MEDICAL PROBLEMS: Acute blood loss anemia HTN constipation INCIDENTAL FINDINGS: Gastric thickening Hiatal hernia PROCEDURES: 01/27: ORIF L femur TODAY'S ASSESSMENT AND PLAN OF CARE: #L femur fx - s/p operative repair 01/27 - NWB LLE - acetaminophen for pain control (ibu and robaxin d/c'd per Ramya recs) - PT/OT recs -> moderate intensity #ABLA - hgb stable 9.9; recheck as clinically indicated #Hx HTN - normotensive, no need for medications #FEN/GI - - cont BID senna/docusate - increased Miralax to BID - 01/31 added dulcolax - 02/02 added milk of mag - reg diet # DVT ppx - Cont SCDs - lovenox Dispo: continue RNF, pending pre-cert for SNF Pt seen and discussed with attending Dr. Mcclellan Total face to face time spent with patient/family of 25 minutes, with >50% of the time spent discussing plan of care/management, counseling/educating on disease processes, explaining results of diagnostic testing. Lucy Chen PA-C Trauma, Critical Care, Acute Care Surgery Floor: [id number] TSICU: [id number] CHIEF COMPLAINT / OVERNIGHT EVENTS: No acute events overnight. Pt this morning in bed, comfortable appearing. States he still hasn't had a BM. States he feels mildly bloated MEDICAL HISTORY / ROS: Admission history and ROS reviewed. Pertinent changes as follows: PHYSICAL EXAM: Heart Rate: [59-63] Temp: [36.1 C (97 F)-37.1 C (98.8 F)] Resp: [16] BP: (104-127)/(62-75) SpO2: [98 %-100 %] Physical Exam Vitals reviewed. Constitutional: General: He is not in acute distress. HENT: Head: Normocephalic and atraumatic. Nose: Nose normal. Mouth/Throat: Mouth: Mucous membranes are moist. Eyes: General: No scleral icterus. Extraocular Movements: Extraocular movements intact. Conjunctiva/sclera: Conjunctivae normal. Cardiovascular: Rate and Rhythm: Normal rate and regular rhythm. Pulses: Normal pulses. Pulmonary: Effort: Pulmonary effort is normal. No respiratory distress. Abdominal: General: There is distension. Palpations: Abdomen is soft. Tenderness: There is no abdominal tenderness. There is no guarding. Comments: Mild abdominal distension Musculoskeletal: Comments: L thigh surgical dressings clean, no strikethrough Compartments soft, compressible Etl Analyst Developer strength 5/5 bilaterally Dorsi/plantarflexion 5/5 bilaterally Skin: General: Skin is warm and dry. Capillary Refill: Capillary refill takes less than 2 seconds. Neurological: Mental Status: He is alert and oriented to person, place, and time. Comments: GCS 15 Psychiatric: Mood and Affect: Mood normal. Behavior: Behavior normal. LABS: Results from last 7 days Lab Units 01/31/24 0541 01/30/24 0635 01/29/24 0708 01/28/24 1636 01/27/24 1511 WBC AUTO x10*3/uL 5.9 5.7 7.0 < > 7.9 HEMOGLOBIN g/dL 9.9* 9.8* 9.3* < > 12.3* HEMATOCRIT % 30.4* 29.9* 28.2* < > 36.5* PLATELETS AUTO x10*3/uL 236 219 179 < > 182 NEUTROS PCT AUTO % -- -- -- -- 65.5 LYMPHS PCT AUTO % -- -- -- -- 12.3 MONOS PCT AUTO % -- -- -- -- 13.9 EOS PCT AUTO % -- -- -- -- 7.3 < > = values in this interval not displayed. Results from last 7 days Lab Units 01/27/24 1511 INR 1.1 Results from last 7 days Lab Units 01/30/24 0635 01/29/24 1154 01/28/24 1636 01/27/24 1511 SODIUM mmol/L 132* 131* 131* 133* POTASSIUM mmol/L 4.3 4.5 4.8 4.5 CHLORIDE mmol/L 99 97* 100 101 CO2 mmol/L 28 27 23 27 BUN mg/dL 15 18 14 15 CREATININE mg/dL 0.64 0.95 0.74 0.71 CALCIUM mg/dL 8.5* 8.6 8.2* 8.6 PROTEIN TOTAL g/dL -- -- -- 6.7 BILIRUBIN TOTAL mg/dL -- -- -- 0.8 ALK PHOS U/L -- -- -- 43 ALT U/L -- -- -- 12 AST U/L -- -- -- 17 GLUCOSE mg/dL 94 102* 142* 95 Results from last 7 days Lab Units 01/27/24 1511 BILIRUBIN TOTAL mg/dL 0.8 I have reviewed all medications, laboratory results, and imaging pertinent for today's encounter. Physical Therapy Treatment Patient Name: Patrice Joel Today's Date: 02/02/2024 Room: [address] [place] [address] Time Calculation Start Time: 1102 Stop Time: 1130 Time Calculation (min): 28 min Assessment/Plan PT Assessment PT Assessment Results: Decreased strength, Decreased endurance, Impaired balance, Decreased mobility, Orthopedic restrictions Rehab Prognosis: Good Evaluation/Treatment Tolerance: Patient limited by pain Medical Staff Made Aware: Yes Strengths: Attitude of self Barriers to Participation: Comorbidities End of Session Communication: Bedside nurse End of Session Patient Position: Alarm on, Up in chair PT Plan Inpatient/Swing Bed or Outpatient: Inpatient PT Plan Treatment/Interventions: Bed mobility, Transfer training, Gait training, Stair training, Balance training, Neuromuscular re-education, Strengthening, Endurance training, Range of motion, Therapeutic exercise, Therapeutic activity, Positioning PT Plan: Ongoing PT PT Frequency: 6 times per week PT Discharge Recommendations: Moderate intensity level of continued care Equipment Recommended upon Discharge: Wheeled walker PT Recommended Transfer Status: Assist x1, Assist x2, Assistive device PT - OK to Discharge: Yes Assessment: Patient is progressing Well with therapy this date. Education and cues to maintain NWB, not limited by dizziness today. Would continue to benefit from continued skilled PT to address all mobility deficits; Patient remains appropriate for MOD intensity therapy when medically appropriate for discharge from acute stay. Will continue to follow. General Visit Information: PT Visit PT Received On: 02/02/24 Prior to Session Communication: Bedside nurse Patient Position Received: Bed, 3 rail up, Alarm on Subjective Subjective: Pt pleasant and agreeable to therapy upon approach Precautions: Precautions Hearing/Visual Limitations: ALGAACIQ LE Weight Bearing Status: Left Non-Weight Bearing Medical Precautions: Fall precautions Objective Pain: Pain Assessment Pain Assessment: 0-10 0-10 (Numeric) Pain Score: 7 Pain Type: Surgical pain Pain Location: Leg Pain Orientation: Left Pain Interventions: Medication (See MAR) Cognition: Cognition Overall Cognitive Status: Within Functional Limits Orientation Level: Oriented X4 Insight: Within function limits Impulsive: Mildly Static Sitting balance: Static Sitting Balance Static Sitting-Balance Support: Feet supported, Bilateral upper extremity supported Static Sitting-Level of Assistance: Close supervision Static Sitting-Comment/Number of Minutes: 10m Dynamic Standing Balance: Dynamic Standing Balance Dynamic Standing-Balance Support: Bilateral upper extremity supported Dynamic Standing-Level of Assistance: Contact guard Dynamic Standing-Comments: x3 hops to prep for transfer, unable to get full foot clearance PT Treatments: Therapeutic Exercise Therapeutic Exercise Activity 1: x5 LLE LAQ assisted, pt reports increased pain Bed Mobility 1 Bed Mobility 1: Supine to sitting Level of Assistance 1: Minimum assistance, Moderate verbal cues Bed Mobility Comments 1: Lee Ann for LLE, HOB fully elevated, Increased time to complete Transfer 1 Transfer From 1: Sit to Transfer to 1: Stand Transfer Device 1: Walker Transfer Level of Assistance 1: Moderate assistance, Moderate verbal cues Trials/Comments 1: x2 vc for handplacement and to maintain NWB Transfers 2 Transfer From 2: Stand to Transfer to 2: Chair with arms Technique 2: Stand pivot Transfer Device 2: Walker Transfer Level of Assistance 2: Moderate assistance, Moderate verbal cues Trials/Comments 2: x1, vc for sequencing and assist to keep LLE off ground Activity tolerance: Activity Tolerance Endurance: Decreased tolerance for upright activites Outcome Measures: [facility] Basic Mobility Turning from your back to your side while in a flat bed without using bedrails: A little Moving from lying on your back to sitting on the side of a flat bed without using bedrails: A lot Moving to and from bed to chair (including a wheelchair): A lot Standing up from a chair using your arms (e.g. wheelchair or bedside chair): A lot To walk in hospital room: Total Climbing 3-5 steps with railing: Total Basic Mobility - Total Score: 11 Education Documentation Precautions, taught by Kaleigh Hale PTA at 02/02/2024 12:08 PM. Learner: Patient Readiness: Acceptance Method: Explanation Response: Verbalizes Understanding Body Mechanics, taught by Kaleigh Hale PTA at 02/02/2024 12:08 PM. Learner: Patient Readiness: Acceptance Method: Explanation Response: Verbalizes Understanding Mobility Training, taught by Kaleigh Hale PTA at 02/02/2024 12:08 PM. Learner: Patient Readiness: Acceptance Method: Explanation Response: Verbalizes Understanding Body Mechanics, taught by Kaleigh Hale PTA at 02/02/2024 12:08 PM. Learner: Patient Readiness: Acceptance Method: Explanation Response: Verbalizes Understanding Precautions, taught by Kaleigh Hale PTA at 02/02/2024 12:08 PM. Learner: Patient Readiness: Acceptance Method: Explanation Response: Verbalizes Understanding ADL Training, taught by Kaleigh Hale PTA at 02/02/2024 12:08 PM. Learner: Patient Readiness: Acceptance Method: Explanation Response: Verbalizes Understanding Education Comments No comments found. OP EDUCATION: Encounter Problems Encounter Problems (Active) PT Problem Pt will complete bed mobility with Lee Ann or less to promote improved ability to exit the bed (Progressing) Start: 01/29/24 Expected End: 02/12/24 Pt will be able to perform sit<->stand and bed<->chair with modAx1 or less and LRAD to promote improved mobility (Progressing) Start: 01/29/24 Expected End: 02/12/24 Pt will be able to ambulate 10 ft with modA and LRAD while maintaining L LE non WB status (Progressing) Start: 01/29/24 Expected End: 02/12/24 Pt will report compliance with there-ex program to promote improved outcomes (Progressing) Start: 01/29/24 Expected End: 02/12/24 Pain - Adult 02/02/24 1052 Discharge Planning Living Arrangements Alone Support Systems Children Home or Post Acute Services Post acute facilities (Rehab/SNF/etc) Type of Post Acute Facility Services half-way Expected Discharge Disposition SNF Does the patient need discharge transport arranged? Yes RoundTrip coordination needed? Yes Patient will be discharging to [facility] [phone] when medically ready. Patient will require a pre cert. Will require updated therapy PT/OT to initiate pre cert. Updated clinicals submitted. [facility] TRAUMA SERVICE - PROGRESS NOTE Patient Name: Patrice Joel Admit Date: [id number] : 1940 AGE: 83 y.o. GENDER: male MECHANISM OF INJURY: 83M tx from [place] after mGLF LOC (yes/no?): no Anticoagulant / Anti-platelet Rx? (for what dx?): no Referring Facility Name (N/A for scene EMR run): [facility] [place] INJURIES: L periprosthetic femur fracture OTHER MEDICAL PROBLEMS: Acute blood loss anemia HTN constipation INCIDENTAL FINDINGS: Gastric thickening Hiatal hernia PROCEDURES: 01/27: ORIF L femur TODAY'S ASSESSMENT AND PLAN OF CARE: #L femur fx - s/p operative repair 01/27 - NWB LLE - acetaminophen for pain control (ibu and robaxin d/c'd per Ramya recs) - PT/OT recs -> moderate intensity #ABLA - hgb stable 9.9; recheck as clinically indicated #Hx HTN - normotensive, no need for medications #FEN/GI - - cont BID senna/docusate - increased Miralax to BID - 01/31 added dulcolax - reg diet # DVT ppx - Cont SCDs - lovenox Dispo: continue RNF, pending SNF Patient discussed with attending Dr. Black Total face to face time spent with patient/family of 20 minutes, with >50% of the time spent discussing plan of care/management, counseling/educating on disease processes, explaining results of diagnostic testing. Lucy Chen PA-C Trauma, Critical Care, Acute Care Surgery Floor: [id number] TSICU: [id number] CHIEF COMPLAINT / OVERNIGHT EVENTS: No acute events overnight. Pt this morning sitting up in chair, occasionally joking. Pt states he felt dizzy yesterday sitting up in bed, in chair he feels ok today. Eating and drinking, denies BM MEDICAL HISTORY / ROS: Admission history and ROS reviewed. Pertinent changes as follows: PHYSICAL EXAM: Heart Rate: [56-66] Temp: [36.5 C (97.7 F)-36.6 C (97.9 F)] Resp: [14-17] BP: (101-155)/(63-76) SpO2: [96 %-98 %] Physical Exam Vitals reviewed. Constitutional: General: He is not in acute distress. HENT: Head: Normocephalic and atraumatic. Nose: Nose normal. Mouth/Throat: Mouth: Mucous membranes are moist. Eyes: General: No scleral icterus. Extraocular Movements: Extraocular movements intact. Cardiovascular: Rate and Rhythm: Normal rate and regular rhythm. Pulses: Normal pulses. Abdominal: Palpations: Abdomen is soft. Tenderness: There is no abdominal tenderness. Musculoskeletal: Comments: L thigh surgical dressings clean Compartments soft, compressible Etl Analyst Developer strength 5/5 bilaterally Dorsi/plantarflexion 5/5 bilaterally Skin: General: Skin is warm and dry. Capillary Refill: Capillary refill takes less than 2 seconds. Neurological: Mental Status: He is alert and oriented to person, place, and time. Comments: GCS 15 Psychiatric: Mood and Affect: Mood normal. Behavior: Behavior normal. LABS: Results from last 7 days Lab Units 01/31/24 0541 01/30/24 0635 01/29/24 0708 01/28/24 1636 01/27/24 1511 WBC AUTO x10*3/uL 5.9 5.7 7.0 < > 7.9 HEMOGLOBIN g/dL 9.9* 9.8* 9.3* < > 12.3* HEMATOCRIT % 30.4* 29.9* 28.2* < > 36.5* PLATELETS AUTO x10*3/uL 236 219 179 < > 182 NEUTROS PCT AUTO % -- -- -- -- 65.5 LYMPHS PCT AUTO % -- -- -- -- 12.3 MONOS PCT AUTO % -- -- -- -- 13.9 EOS PCT AUTO % -- -- -- -- 7.3 < > = values in this interval not displayed. Results from last 7 days Lab Units 01/27/24 1511 INR 1.1 Results from last 7 days Lab Units 01/30/24 0635 01/29/24 1154 01/28/24 1636 01/27/24 1511 SODIUM mmol/L 132* 131* 131* 133* POTASSIUM mmol/L 4.3 4.5 4.8 4.5 CHLORIDE mmol/L 99 97* 100 101 CO2 mmol/L 28 27 23 27 BUN mg/dL 15 18 14 15 CREATININE mg/dL 0.64 0.95 0.74 0.71 CALCIUM mg/dL 8.5* 8.6 8.2* 8.6 PROTEIN TOTAL g/dL -- -- -- 6.7 BILIRUBIN TOTAL mg/dL -- -- -- 0.8 ALK PHOS U/L -- -- -- 43 ALT U/L -- -- -- 12 AST U/L -- -- -- 17 GLUCOSE mg/dL 94 102* 142* 95 Results from last 7 days Lab Units 01/27/24 1511 BILIRUBIN TOTAL mg/dL 0.8 I have reviewed all medications, laboratory results, and imaging pertinent for today's encounter. [facility] TRAUMA SERVICE - PROGRESS NOTE Patient Name: Patrice Joel Admit Date: [id number] : 1940 AGE: 83 y.o. GENDER: male MECHANISM OF INJURY: 83M tx from [place] after mGLF LOC (yes/no?): no Anticoagulant / Anti-platelet Rx? (for what dx?): no Referring Facility Name (N/A for scene EMR run): [place] INJURIES: L periprosthetic femur fracture OTHER MEDICAL PROBLEMS: Acute blood loss anemia HTN constipation INCIDENTAL FINDINGS: Gastric thickening Hiatal hernia PROCEDURES: 01/27: ORIF L femur TODAY'S ASSESSMENT AND PLAN OF CARE: #L femur fx - s/p operative repair 01/27 - NWB LLE - acetaminophen for pain control (ibu and robaxin d/c'd per Ramya recs) - PT/OT recs -> moderate intensity #ABLA - hgb stable 9.9; recheck as clinically indicated #Hx HTN - normotensive, no need for medications #FEN/GI - - cont BID senna/docusate - increased Miralax to BID - added 01/31 dulcolax - reg diet # DVT ppx - Cont SCDs - lovenox Dispo: continue RNF, pending SNF Patient discussed with attending Dr. Black Total face to face time spent with patient/family of 20 minutes, with >50% of the time spent discussing plan of care/management, counseling/educating on disease processes, explaining results of diagnostic testing. Lucy Chen PA-C Trauma, Critical Care, Acute Care Surgery Floor: [id number] TSICU: [id number] CHIEF COMPLAINT / OVERNIGHT EVENTS: No acute events overnight. Pt this morning states belly feels slightly nauseous, tolerating diet well. Discussed placement for rehab. Pt denies any chest pain, shortness of breath, vomiting. Still no BM, increased BR MEDICAL HISTORY / ROS: Admission history and ROS reviewed. Pertinent changes as follows: PHYSICAL EXAM: Heart Rate: [56-66] Temp: [36.5 C (97.7 F)-36.7 C (98.1 F)] Resp: [14-16] BP: (101-155)/(63-76) SpO2: [97 %-98 %] Physical Exam Vitals reviewed. Constitutional: General: He is not in acute distress. HENT: Head: Normocephalic and atraumatic. Nose: Nose normal. Mouth/Throat: Mouth: Mucous membranes are moist. Eyes: General: No scleral icterus. Extraocular Movements: Extraocular movements intact. Cardiovascular: Rate and Rhythm: Normal rate and regular rhythm. Pulses: Normal pulses. Abdominal: Palpations: Abdomen is soft. Tenderness: There is no abdominal tenderness. Musculoskeletal: Comments: L thigh surgical dressings clean Compartments soft, compressible Etl Analyst Developer strength 5/5 bilaterally Dorsi/plantarflexion LLE 5/5, 3/5 RLE Skin: General: Skin is warm and dry. Capillary Refill: Capillary refill takes less than 2 seconds. Neurological: Mental Status: He is alert and oriented to person, place, and time. Comments: GCS 15 Psychiatric: Mood and Affect: Mood normal. Behavior: Behavior normal. LABS: Results from last 7 days Lab Units 01/31/24 0541 01/30/24 0635 01/29/24 0708 01/28/24 1636 01/27/24 1511 WBC AUTO x10*3/uL 5.9 5.7 7.0 < > 7.9 HEMOGLOBIN g/dL 9.9* 9.8* 9.3* < > 12.3* HEMATOCRIT % 30.4* 29.9* 28.2* < > 36.5* PLATELETS AUTO x10*3/uL 236 219 179 < > 182 NEUTROS PCT AUTO % -- -- -- -- 65.5 LYMPHS PCT AUTO % -- -- -- -- 12.3 MONOS PCT AUTO % -- -- -- -- 13.9 EOS PCT AUTO % -- -- -- -- 7.3 < > = values in this interval not displayed. Results from last 7 days Lab Units 01/27/24 1511 INR 1.1 Results from last 7 days Lab Units 01/30/24 0635 01/29/24 1154 01/28/24 1636 01/27/24 1511 SODIUM mmol/L 132* 131* 131* 133* POTASSIUM mmol/L 4.3 4.5 4.8 4.5 CHLORIDE mmol/L 99 97* 100 101 CO2 mmol/L 28 27 23 27 BUN mg/dL 15 18 14 15 CREATININE mg/dL 0.64 0.95 0.74 0.71 CALCIUM mg/dL 8.5* 8.6 8.2* 8.6 PROTEIN TOTAL g/dL -- -- -- 6.7 BILIRUBIN TOTAL mg/dL -- -- -- 0.8 ALK PHOS U/L -- -- -- 43 ALT U/L -- -- -- 12 AST U/L -- -- -- 17 GLUCOSE mg/dL 94 102* 142* 95 Results from last 7 days Lab Units 01/27/24 1511 BILIRUBIN TOTAL mg/dL 0.8 I have reviewed all medications, laboratory results, and imaging pertinent for today's encounter. Physical Therapy Physical Therapy Treatment Patient Name: Patrice Joel Department: [place] [id number] Room: [address] [place] [address] Today's Date: 02/01/2024 Time Calculation Start Time: 1017 Stop Time: 1045 Time Calculation (min): 28 min Assessment/Plan PT Assessment End of Session Communication: Bedside nurse Assessment Comment: Pt tolerated PT session fair, able to complete supine level exercises, AAROM on LLE, and sit EOB, Pt continues to require increased assist Max-ModA for bed mobility, Unable to progress OOB d/t increased dizziness this date, pt seated up in chair mode in bed at end of session to promote upright posture. Pt continues to remain appropriate for Moderate intensity PT upon D/C from hospital. End of Session Patient Position: Bed, 3 rail up, Alarm on PT Plan Inpatient/Swing Bed or Outpatient: Inpatient PT Plan Treatment/Interventions: Bed mobility, Transfer training, Gait training, Stair training, Balance training, Neuromuscular re-education, Strengthening, Endurance training, Range of motion, Therapeutic exercise, Therapeutic activity, Positioning PT Plan: Ongoing PT PT Frequency: 6 times per week PT Discharge Recommendations: Moderate intensity level of continued care Equipment Recommended upon Discharge: Wheeled walker PT Recommended Transfer Status: Assist x1, Assist x2, Assistive device PT - OK to Discharge: Yes General Visit Information: PT Visit PT Received On: 02/01/24 General Missed Visit: No Missed Visit Reason: (n/a) Family/Caregiver Present: No Prior to Session Communication: Bedside nurse Patient Position Received: Bed, 3 rail up, Alarm on General Comment: Pt supine in bed, agreeable to work with PT. Subjective Precautions: Precautions Hearing/Visual Limitations: ALGAACIQ LE Weight Bearing Status: Left Non-Weight Bearing Medical Precautions: Fall precautions Precautions Comment: Pt able to recall NWB status on LLE Vital Signs (Past 2hrs) Date/Time Vitals Session Patient Position Pulse Resp SpO2 BP MAP (mmHg) 02/01/24 1017 During PT Lying 62 -- 97 % 155/73 -- Vital Signs Comment: Pt seated EOB, increased dizziness without subsiding, returned to supine vitals monitored RN notifed. Objective Pain: Pain Assessment Pain Assessment: 0-10 0-10 (Numeric) Pain Score: 5 - Moderate pain Pain Type: Surgical pain Pain Location: Leg Pain Orientation: Left Cognition: Cognition Overall Cognitive Status: Within Functional Limits Orientation Level: Oriented X4 Activity Tolerance: Activity Tolerance Endurance: Tolerates 10 - 20 min exercise with multiple rests, Decreased tolerance for upright activites Treatments: Therapeutic Exercise Therapeutic Exercise Performed: Yes Therapeutic Exercise Activity 1: Supine: AP, QS, HS, Hip ABD x10 BLE, AAROM provided to LLE Therapeutic Activity Therapeutic Activity Performed: Yes Therapeutic Activity 1: Pt performed bed mobility with MaxA for LLE advancing and trunk, Therapeutic Activity 2: Pt tolerated static sitting EOB with Min-CGA, however increased dizziness EOB, after ~4-5 minutes no subside in symptoms, returned to supine vitals monitorred. Therapeutic Activity 3: Pt placed in chair setting in bed at end of session, RN notified. Bed Mobility Bed Mobility: Yes Bed Mobility 1 Bed Mobility 1: Supine to sitting Level of Assistance 1: Maximum assistance, Minimal verbal cues Bed Mobility Comments 1: Assist to advance LLE and assist at trunk to come upright seated EOB. Bed Mobility 2 Bed Mobility 2: Sitting to supine Level of Assistance 2: Moderate assistance Bed Mobility Comments 2: Assist with LLE to advance into bed, Bed Mobility 3 Bed Mobility 3: Scooting Level of Assistance 3: Maximum assistance, +2 Bed Mobility Comments 3: Boost towards HOB Ambulation/Gait Training Ambulation/Gait Training Performed: No Transfers Transfer: No (Deferred d/t increased dizziness EOB, dizziness did not subside with prolonged time, pt requesting return to supine.) Stairs Stairs: No Outcome Measures: [facility] Basic Mobility Turning from your back to your side while in a flat bed without using bedrails: A lot Moving from lying on your back to sitting on the side of a flat bed without using bedrails: A lot Moving to and from bed to chair (including a wheelchair): A lot Standing up from a chair using your arms (e.g. wheelchair or bedside chair): A lot To walk in hospital room: Total Climbing 3-5 steps with railing: Total Basic Mobility - Total Score: 10 Education Documentation Precautions, taught by Rosa Mcdermott PTA at 02/01/2024 12:12 PM. Learner: Patient Readiness: Acceptance Method: Explanation Response: Verbalizes Understanding Body Mechanics, taught by Rosa Mcdermott PTA at 02/01/2024 12:12 PM. Learner: Patient Readiness: Acceptance Method: Explanation Response: Verbalizes Understanding Mobility Training, taught by Rosa Mcdermott PTA at 02/01/2024 12:12 PM. Learner: Patient Readiness: Acceptance Method: Explanation Response: Verbalizes Understanding Education Comments No comments found. OP EDUCATION: Encounter Problems Encounter Problems (Active) PT Problem Pt will complete bed mobility with Lee Ann or less to promote improved ability to exit the bed (Progressing) Start: 01/29/24 Expected End: 02/12/24 Pt will be able to perform sit<->stand and bed<->chair with modAx1 or less and LRAD to promote improved mobility (Progressing) Start: 01/29/24 Expected End: 02/12/24 Pt will be able to ambulate 10 ft with modA and LRAD while maintaining L LE non WB status (Progressing) Start: 01/29/24 Expected End: 02/12/24 Pt will report compliance with there-ex program to promote improved outcomes (Progressing) Start: 01/29/24 Expected End: 02/12/24 Pain - Adult 02/01/24 at 12:13 PM Rosa Mcdermott PTA Rehab Office: [phone] 02/01/24 1013 Discharge Planning Who is requesting discharge planning? Provider Home or Post Acute Services Post acute facilities (Rehab/SNF/etc) Type of Post Acute Facility Services half-way Expected Discharge Disposition SNF ([facility] Spoke with daughter Haily [phone] to make her aware at this time [facility] is the only accepting SNF via [facility]. Haily stated this is actually her FOC because it's the closest to her home so this is fine. Secure chat sent to direct submit team requesting for them to submit for precert. [facility] updated of above. Care Transitions team will continue to follow for discharge planning needs. Shoshana Albrecht RN Transitional Corporate Legal Assistant ([employer]) [phone] or [phone] Physical Therapy Physical Therapy Treatment Patient Name: Patrice Joel Department: [place] [id number] Room: [address] [place] [address] Today's Date: 01/31/2024 Time Calculation Start Time: 1547 Stop Time: 1601 Time Calculation (min): 14 min Assessment/Plan PT Assessment PT Assessment Results: Decreased strength, Decreased endurance, Impaired balance, Decreased mobility, Orthopedic restrictions Assessment Comment: Pt stated he was comfortable and not willing to get OOB for therapy. Pt agreed to supine exercises. Pt provided handout of supine exercises and educated in proper execution. End of Session Patient Position: Bed, 4 rail up, Alarm on PT Plan Treatment/Interventions: Bed mobility, Transfer training, Gait training, Stair training, Balance training, Neuromuscular re-education, Strengthening, Endurance training, Range of motion, Therapeutic exercise, Therapeutic activity, Positioning PT Plan: Ongoing PT PT Frequency: 6 times per week PT Discharge Recommendations: Moderate intensity level of continued care Equipment Recommended upon Discharge: Wheeled walker PT Recommended Transfer Status: Assist x2 PT - OK to Discharge: Yes General Visit Information: PT Visit PT Received On: 01/31/24 General Prior to Session Communication: Bedside nurse Patient Position Received: Bed, 4 rail up, Alarm on General Comment: Pt supine in bed upon arrival. Pt stated he was comfortable and did refused to get out of bed for therapy but agreeable to exercises in the bed. Subjective Precautions: Precautions LE Weight Bearing Status: Left Non-Weight Bearing Medical Precautions: Fall precautions Vital Signs (Past 2hrs) Objective Pain: Cognition: Cognition Overall Cognitive Status: Within Functional Limits Coordination: Activity Tolerance: Treatments: Therapeutic Exercise Therapeutic Exercise Performed: Yes Therapeutic Exercise Activity 1: Pt was provided handout of supine exercises and educated in proper execution. Therapeutic Exercise Activity 2: Supine R LE AROM heel slides, hip abduction/adduction, QS, GS, DF, SLR x10 Therapeutic Exercise Activity 3: Supine L LE AAROM hip abduction (<25% ROM), QS, GS x10 Outcome Measures: [facility] Basic Mobility Turning from your back to your side while in a flat bed without using bedrails: A lot Moving from lying on your back to sitting on the side of a flat bed without using bedrails: A lot Moving to and from bed to chair (including a wheelchair): A lot Standing up from a chair using your arms (e.g. wheelchair or bedside chair): A lot To walk in hospital room: Total Climbing 3-5 steps with railing: Total Basic Mobility - Total Score: 10 Education Documentation Precautions, taught by Jinny Moore PTA at 01/31/2024 4:16 PM. Learner: Patient Readiness: Acceptance Method: Explanation Response: Verbalizes Understanding, Needs Reinforcement Body Mechanics, taught by Jinny Moore PTA at 01/31/2024 4:16 PM. Learner: Patient Readiness: Acceptance Method: Explanation Response: Verbalizes Understanding, Needs Reinforcement Mobility Training, taught by Jinny Moore PTA at 01/31/2024 4:16 PM. Learner: Patient Readiness: Acceptance Method: Explanation Response: Verbalizes Understanding, Needs Reinforcement Education Comments No comments found. OP EDUCATION: Encounter Problems Encounter Problems (Active) PT Problem Pt will complete bed mobility with Lee Ann or less to promote improved ability to exit the bed (Progressing) Start: 01/29/24 Expected End: 02/12/24 Pt will be able to perform sit<->stand and bed<->chair with modAx1 or less and LRAD to promote improved mobility (Progressing) Start: 01/29/24 Expected End: 02/12/24 Pt will be able to ambulate 10 ft with modA and LRAD while maintaining L LE non WB status (Progressing) Start: 01/29/24 Expected End: 02/12/24 Pt will report compliance with there-ex program to promote improved outcomes (Progressing) Start: 01/29/24 Expected End: 02/12/24 Pain - Adult [facility] TRAUMA SERVICE - PROGRESS NOTE Patient Name: Patrice Joel Admit Date: [id number] : 1940 AGE: 83 y.o. GENDER: male MECHANISM OF INJURY: 83M tx from [place] after mGLF LOC (yes/no?): no Anticoagulant / Anti-platelet Rx? (for what dx?): no Referring Facility Name (N/A for scene EMR run): [facility] INJURIES: L periprosthetic femur fracture OTHER MEDICAL PROBLEMS: Acute blood loss anemia HTN constipation INCIDENTAL FINDINGS: Gastric thickening Hiatal hernia PROCEDURES: 01/27: ORIF L femur TODAY'S ASSESSMENT AND PLAN OF CARE: #L femur fx - s/p operative repair 01/27 - NWB LLE - acetaminophen for pain control (ibu and robaxin d/c'd per Ramya recs) - PT/OT recs -> moderate intensity #ABLA - hgb stable 9.9; recheck as clinically indicated #Hx HTN - normotensive, no need for medications #FEN/GI - - cont BID senna/docusate - increased Miralax to BID - reg diet Cont SCDs and lovenox for DVT ppx Pending SNF Patient was dicussed with Dr. Jeffrey Arce, PUTTY AND CAULKING SUPERVISOR-COPY WRITER Trauma, Critical Care, and Acute Care Surgery Ext [phone] (floor), [phone] (ICU) CHIEF COMPLAINT / OVERNIGHT EVENTS: Patient reports pain controlled. Reports no BM in past week - denies abd pain, nausea/vomiting. Is trying to not have BM in hospital. MEDICAL HISTORY / ROS: Admission history and ROS reviewed. Pertinent changes as follows: PHYSICAL EXAM: Heart Rate: [57-68] Temp: [36.1 C (97 F)-37 C (98.6 F)] Resp: [15-17] BP: (117-138)/(66-78) SpO2: [96 %-98 %] Physical Exam Vitals reviewed. HENT: Head: Normocephalic and atraumatic. Nose: Nose normal. Eyes: General: No scleral icterus. Cardiovascular: Rate and Rhythm: Normal rate and regular rhythm. Pulses: Normal pulses. Abdominal: Palpations: Abdomen is soft. Tenderness: There is no abdominal tenderness. Musculoskeletal: Comments: L thigh surgical dressings clean Compartments soft, compressible Skin: General: Skin is warm and dry. Neurological: Mental Status: He is oriented to person, place, and time. LABS: Results from last 7 days Lab Units 01/31/24 0541 01/30/24 0635 01/29/24 0708 01/28/24 1636 01/27/24 1511 WBC AUTO x10*3/uL 5.9 5.7 7.0 < > 7.9 HEMOGLOBIN g/dL 9.9* 9.8* 9.3* < > 12.3* HEMATOCRIT % 30.4* 29.9* 28.2* < > 36.5* PLATELETS AUTO x10*3/uL 236 219 179 < > 182 NEUTROS PCT AUTO % -- -- -- -- 65.5 LYMPHS PCT AUTO % -- -- -- -- 12.3 MONOS PCT AUTO % -- -- -- -- 13.9 EOS PCT AUTO % -- -- -- -- 7.3 < > = values in this interval not displayed. Results from last 7 days Lab Units 01/27/24 1511 INR 1.1 Results from last 7 days Lab Units 01/30/24 0635 01/29/24 1154 01/28/24 1636 01/27/24 1511 SODIUM mmol/L 132* 131* 131* 133* POTASSIUM mmol/L 4.3 4.5 4.8 4.5 CHLORIDE mmol/L 99 97* 100 101 CO2 mmol/L 28 27 23 27 BUN mg/dL 15 18 14 15 CREATININE mg/dL 0.64 0.95 0.74 0.71 CALCIUM mg/dL 8.5* 8.6 8.2* 8.6 PROTEIN TOTAL g/dL -- -- -- 6.7 BILIRUBIN TOTAL mg/dL -- -- -- 0.8 ALK PHOS U/L -- -- -- 43 ALT U/L -- -- -- 12 AST U/L -- -- -- 17 GLUCOSE mg/dL 94 102* 142* 95 Results from last 7 days Lab Units 01/27/24 1511 BILIRUBIN TOTAL mg/dL 0.8 I have reviewed all medications, laboratory results, and imaging pertinent for today's encounter. Subjective No acute events overnight. This morning, patient reports sleeping well. He states that pain is 1/10. He is eager to be discharged to rehab to get stronger. He still has not had a bowel movement (last BM Saturday). He is eating less but has a good appetite. Objective Current Facility-Administered Medications Medication Dose Route Frequency Provider Last Rate Last Admin acetaminophen (Tylenol) tablet 975 mg 975 mg oral q8h KALIE Eliel G Dunlap, PA-C 975 mg at 01/31/24 1333 calcium carbonate (Tums) chewable tablet 500 mg 500 mg oral 4x daily PRN Eliel G Dunlap, PA-C 500 mg at 01/29/24 2047 enoxaparin (Lovenox) syringe 30 mg 30 mg subcutaneous q12h Eliel G Dunlap, PA-C 30 mg at 01/31/24 1333 ibuprofen tablet 600 mg 600 mg oral q8h KALIE Eliel G Dunlap, PA-C 600 mg at 01/31/24 0444 methocarbamol (Robaxin) tablet 500 mg 500 mg oral q6h PRN Eliel G Dunlap, PA-C 500 mg at 01/28/24 0051 ondansetron (Zofran) injection 4 mg 4 mg intravenous q4h PRN Eliel G Dunlap, PA-C 4 mg at 01/30/24 2244 polyethylene glycol (Glycolax, Miralax) packet 17 g 17 g oral Daily Eliel JOLIE Hardy-C 17 g at 01/31/24 0949 sennosides (Senokot) tablet 8.6 mg 1 tablet oral BID Eliel G Fabi PA-C 8.6 mg at 01/31/24 0949 Physical Exam Constitutional: General: He is not in acute distress. Appearance: Normal appearance. HENT: Head: Normocephalic and atraumatic. Mouth/Throat: Mouth: Mucous membranes are moist. Cardiovascular: Rate and Rhythm: Normal rate and regular rhythm. Pulses: Normal pulses. Heart sounds: Normal heart sounds. Pulmonary: Effort: Pulmonary effort is normal. No respiratory distress. Breath sounds: Normal breath sounds. Abdominal: General: Abdomen is flat. Bowel sounds are normal. Palpations: Abdomen is soft. Skin: General: Skin is warm and dry. Capillary Refill: Capillary refill takes less than 2 seconds. Coloration: Skin is not jaundiced. Neurological: General: No focal deficit present. Mental Status: He is alert and oriented to person, place, and time. Confusion Assessment Method(CAM) for diagnosis of delirium: 1. Acute onset or fluctuating course: absent 2. Inattention: absent 3. Disorganized thinking: absent 4. Altered level of consciousness: absent CAM: negative AT Score For Assessment of Delirium and Cognitive Impairment: Alertness: 0 Normal(fully alert,but not agitated, throughout assessment)=0 Mild sleepiness for <10 seconds after walking, then normal=0 Clearly abnormal=4 2. AMT4: 0 No mistakes=0 One mistake=1 Two or more mistakes/untestable=2 3. Attention: 0 Achieves seven months or more correctly=0 Starts but scores <7 months/ refuses to start=1 Untestable(cannot start because unwell, drowsy, inattentive)=2 4. Acute: 0 No=0 Yes=4 Total Score: 0 4 or above: Possible delirium +/- cognitive impairment 1-3: Possible cognitive impairment 0: Delirium or severe cognitive impairment unlikely(but delirium still possible if (4) information incomplete) Last Recorded Vitals 01/30/2024 11:53 AM 01/30/2024 3:00 PM 01/30/2024 5:00 PM 01/30/2024 5:03 PM 01/30/2024 7:59 PM 01/30/2024 11:00 PM 01/31/2024 7:29 AM Vitals Systolic 119 127 138 132 117 123 Diastolic 71 71 72 78 66 69 Heart Rate 63 65 68 60 57 Temp 36.3 C (97.3 F) 36.1 C (97 F) 37 C (98.6 F) 36.5 C (97.7 F) 36.1 C (97 F) Resp 15 17 Vitals: 01/28/24 0642 Weight: 89.8 kg (198 lb) Relevant Results Lab Results Component Value Date TSH 0.66 01/30/2024 [id number] 468 01/30/2024 [id number] 33 01/30/2024 Results from last 7 days Lab Units 01/31/24 0541 01/30/24 0635 01/29/24 1154 01/29/24 0708 01/28/24 1636 01/27/24 1511 WBC AUTO x10*3/uL 5.9 5.7 -- 7.0 8.6 7.9 HEMOGLOBIN g/dL 9.9* 9.8* -- 9.3* 10.7* 12.3* HEMATOCRIT % 30.4* 29.9* -- 28.2* 35.8* 36.5* ALT U/L -- -- -- -- -- 12 AST U/L -- -- -- -- -- 17 SODIUM mmol/L -- 132* 131* -- 131* 133* POTASSIUM mmol/L -- 4.3 4.5 -- 4.8 4.5 CHLORIDE mmol/L -- 99 97* -- 100 101 CREATININE mg/dL -- 0.64 0.95 -- 0.74 0.71 BUN mg/dL -- 15 18 -- 14 15 CO2 mmol/L -- 28 27 -- 23 27 INR -- -- -- -- -- 1.1 FL fluoro images no charge These images are not reportable by radiology and will not be interpreted by Radiologists. ECG 12 Lead Normal sinus rhythm Normal ECG No previous ECGs available See ED provider note for full interpretation and clinical correlation Confirmed by Daphne Hill ([id number]) on 01/28/2024 1:10:[address] abdomen pelvis w IV contrast Narrative: Interpreted By: Nevaeh Lind and Beyersdorf Conner STUDY: CT ABDOMEN PELVIS W IV CONTRAST; 01/27/2024 11:40 pm INDICATION: Signs/Symptoms:fall. COMPARISON: CT pelvis 01/27/2024 ACCESSION NUMBER(S): [id number] ORDERING CLINICIAN: HARINI MENDEZ TECHNIQUE: CT of the abdomen and pelvis was performed. Standard contiguous axial images were obtained at 3 mm slice thickness through the abdomen and pelvis. Coronal and sagittal reconstructions at 3 mm slice thickness were performed. 75 ml of contrast Omnipaque 350 were administered intravenously without immediate complication. FINDINGS: LOWER CHEST: Bibasilar atelectasis. The heart is normal in size without pericardial effusion. Severe coronary calcifications. ABDOMEN: LIVER: The liver is normal in size without evidence of focal liver lesions. BILE DUCTS: The intrahepatic and extrahepatic ducts are not dilated. GALLBLADDER: The gallbladder is nondistended and without evidence of radiopaque stones. PANCREAS: The pancreas appears unremarkable without evidence of ductal dilatation or masses. SPLEEN: The spleen is normal in size without focal lesions. ADRENAL GLANDS: Bilateral adrenal glands appear normal. KIDNEYS AND URETERS: The kidneys are normal in size and enhance symmetrically. There is a large simple attenuating right renal cyst measuring up to 8.7 cm. Small bilateral peripelvic cysts. Punctate nonobstructing stones within the midpole and the inferior pole of the left kidney. No hydroureteronephrosis. PELVIS: Evaluation of the pelvic structures is limited secondary to streak artifact from bilateral hip replacements. BLADDER: Limited evaluation due to streak artifact from bilateral hip arthroplasties. No significant bladder wall thickening is seen. REPRODUCTIVE ORGANS: Limited evaluation due to streak artifact. BOWEL: Circumferential wall thickening and submucosal edema of the distal esophagus. Fluid in the distal esophagus suggestive of gastroesophageal reflux. Small hiatal hernia. Focal wall thickening of the gastric fundus. The small and large bowel are normal in caliber and demonstrate no wall thickening. Diffuse colonic diverticulosis without evidence of diverticulitis. Large colonic stool burden. The appendix is normal. VESSELS: There is no aneurysmal dilatation of the abdominal aorta. Moderate atherosclerotic disease of the aorta and its branches. The IVC appears normal. PERITONEUM/RETROPERITONEUM/LYMPH NODES: No ascites or free air, no fluid collection. No abdominopelvic lymphadenopathy is present. BONES AND ABDOMINAL WALL: Bilateral total hip arthroplasties. Periprosthetic subtrochanteric fracture of the left femur with 0.5 cm lateral and 1 cm posterior displacement. The right arthroplasty appears unremarkable. Diffuse degenerative disc changes noted the abdominal wall soft tissues appear normal. Impression: 1. Mildly displaced periprosthetic fracture of the left proximal femur. There is otherwise no evidence of acute traumatic injury within the chest, abdomen, and pelvis. 2. Small hiatal hernia. Circumferential distal wall thickening/edema suggestive of esophagitis. 3. Focal wall thickening of the stomach at the gastric fundus. An underlying mass is not excluded. Gastroenterology follow-up is recommended. I personally reviewed the image(s)/study and resident interpretation. I agree with the findings as stated by resident Sal Grossman. Data analyzed and images interpreted at [place], [place]. MACRO: Critical Finding: See findings. Notification was initiated on 01/28/2024 at 12:59 am by Nevaeh Lind. (-YCF-) Instructions: Signed by: Nevaeh Lind 01/28/2024 12:59 AM Dictation workstation: [id number] XR chest 1 view Narrative: Interpreted By: Nevaeh Lind and Ohs Zachary STUDY: XR CHEST 1 VIEW; 01/27/2024 8:52 pm INDICATION: Signs/Symptoms:preop clearance. COMPARISON: None. ACCESSION NUMBER(S): [id number] ORDERING CLINICIAN: JADEN GONZALEZ FINDINGS: AP radiograph of the chest was provided. MEDICAL DEVICES: None. CARDIOMEDIASTINAL SILHOUETTE: Cardiomediastinal silhouette is normal in size and configuration. LUNGS: Perihilar peribronchial thickening. Strandy bibasilar opacities, consistent with atelectasis. Additional artifactual bibasilar densities related to superimposed soft tissue overlying the lower extremities. No pneumothorax. Small left pleural effusion. ABDOMEN: No remarkable upper abdominal findings. BONES: Remote fractures of the posterolateral 6th and 7th ribs. Impression: 1. Mild bibasilar atelectasis. I personally reviewed the images/study and I agree with the findings as stated by Dr. Song Lozoya. This study was interpreted at [place], [place]. MACRO: None Signed by: Nevaeh Lind 01/28/2024 12:36 AM Dictation workstation: [id number] XR hip left with pelvis when performed 2 or 3 views, XR knee left 1-2 views Narrative: Interpreted By: Nevaeh Lind and Ohs Zachary STUDY: XR HIP LEFT WITH PELVIS WHEN PERFORMED 2 OR 3 VIEWS; XR KNEE LEFT 1-2 VIEWS 01/27/2024 8:52 pm INDICATION: Signs/Symptoms:femur fracture COMPARISON: Pelvic radiograph 01/27/2024. ACCESSION NUMBER(S): [id number]; [id number] ORDERING CLINICIAN: JADEN GONZALEZ TECHNIQUE: AP view of the pelvis and left hip. FINDINGS: Status post bilateral hip arthroplasty. Oblique subtrochanteric periprosthetic fracture with 0.2 cm lateral displacement, not significantly changed in alignment. No other acute fracture or dislocation. No significant lucency around the hardware to suggest chronic loosening. Severe calcified atherosclerotic disease of the bilateral lower extremity vessels. The overlying soft tissues unremarkable. The visualized pelvic structures unremarkable. Moderate tricompartment degenerative changes of the left knee with osteophytosis, lateral greater than medial joint space narrowing and subchondral sclerosis. Small suprapatellar joint effusion. No acute fracture or malalignment of the knee. Impression: 1. Minimally displaced subtrochanteric periprosthetic fracture, not significantly changed in alignment. 2. 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 I personally reviewed the images/study and I agree with the findings as stated by Dr. Song Lozoya. This study was interpreted at [place], [place]. MACRO: None Signed by: Nevaeh Lind 01/28/2024 12:34 AM Dictation workstation: [id number] DATA: EKG: QTC Encounter Date: 01/27/24 ECG 12 Lead Result Value Ventricular Rate 67 Atrial Rate 67 GA Interval 192 QRS Duration 90 QT Interval 392 QTC Calculation(Bazett) 414 P [place] 30 R [place] 39 T [place] 34 QRS Count 10 Q Onset 220 P Onset 124 P Offset 185 T Offset 416 QTC [place] 407 Narrative Normal sinus rhythm Normal ECG No previous ECGs available See ED provider note for full interpretation and clinical correlation Confirmed by Daphne Hill ([id number]) on 01/28/2024 1:10:44 AM Anti-psychotics in 48 hours: None Opioids/Benzodiazepines in 48 hours: None Anticholinergics on board: No Restraints: No Indwelling catheters: No Last BM: Saturday UO in 24 hours: -2L Activity in the past 24 hours: working with PT/OT, sat in chair briefly Need for ambulatory devices: was using a cane occasionally prior to admission Assessment/Plan Patrice Joel is an 83 y.o. male, with past medical history relevant for HTN, presenting after a ground-level fall, found to have nondisplaced periprosthetic fracture of the L femur s/p ORIF. Geriatrics consulted for further medical management after fall. Principal Problem: Periprosthetic fracture of proximal end of femur Active Problems: Closed fracture of left femur, unspecified fracture morphology, unspecified portion of femur, initial encounter (Multi) Murmur 1. Acute fall, unclear etiology Patient has had 2 recent falls and has several medical notes detailing unsteady gait and dizziness in past few years. Unclear etiology of falls given unremarkable exam and normal labs. Vitamin D within normal levels and patient has normal orthostatic vitals. PLAN: - continue physical therapy as able 2. Pain management Patient reporting mild post-surgical pain. Has been on scheduled tylenol and ibuprofen but pain appears decently controlled. PLAN: - continue scheduled tylenol 975 mg q8h - discontinue robaxin - discontinue ibuprofen 3. Delirium prevention iso possible underlying cognitive impairment Patient has possible underlying cognitive impairment given difficulty with functions of daily living per daughter's report. He has also been having some delusional thought content and personality changes for the past year. Patient's vitamin B12, TSH, and vitamin D levels are within normal limits. Presently he is oriented to person, place, and time and CAM negative with a 4AT score 0. PLAN: - please engage music therapy and elastic attacher chainstitch services Please consider the following general measures for minimizing delirium in a hospitalized patient: - bright lights during the day, keeps blinds up, switch all lights on - avoid disturbances at night. Encourage at least 6 hours uninterrupted sleep. Consider d/c 4am vitals check - avoid benzodiazepines, sedatives. Minimize opioids - avoid anti-cholinergics - avoid restraints - use low dose haldol 0.5mg PO (IM if PO not possible) only PRN severe agitation where pt exhibits volatile behavior and is a threat to self or others. EKGs to monitor QTc - daily orientation to time and place by the staff - out of bed to chair few hours everyday - encourage stimulating activities during the day if possible 4. Acute Constipation Patient has miralax and senna ordered but has only been taking it intermittently. Has had minimal opioid use. Last BM on Saturday. PLAN: - continue scheduled miralax and senna, encourage patient to take - if patient still does not have a bowel movement this afternoon, please increase scheduled senna to 2 tablets BID 5. Mild hyponatremia Patient has had low sodium since admission. Unclear etiology but is asymptomatic. Patient appears to be euvolemic on exam. PLAN: - daily RFPs to monitor Na 6. Normocytic Anemia Patient has had slight drop in hemoglobin since admission, possibly 2/2 blood loss in OR. PLAN: - daily CBCs to trend Hgb - transfuse if Hgb < 7 7. History of HTN Patient has history of HTN and was previously on amlodipine and/or lisinopril but self-discontinued these medications. Blood pressure control has been good while in the hospital. PLAN: - continue to hold blood pressure medications Care Transitions: -Recommended level for discharge: moderate intensity, assist of 2 -Home going considerations: patient lives alone currently without significant help close-by, patient's daughter is willing to have him stay with her but her home has several stairs -Primary care physician: does not see providers regularly but has seen Dr. Hadley Fallon at [facility] previously Goals of Care: -Health care power of personal injury attorney: none, wants his daughter to make decisions on his behalf if needed, daughter would like assistance in healthcare power of personal injury attorney paperwork -Living will: none Code status: patient reported to our team that he would like to be DNR/DNI without escalation to ICU. Discussed with primary team and code status changed in chart. 4M AGE-FRIENDLY INITIATIVE: What matters most to patient: God, love, forgiveness Medications: robaxin and ibuprofen Mentation: alert and oriented to person, place, and time, CAM negative, 4AT score 0 Mobility: prior to admission, was ambulating mostly without assistance, occasional cane use when walking dog on rough terrain Geriatric medicine will sign off. Thank you for allowing geriatric medicine to be involved in the care of your patient. Geriatric medicine consultation team is available during work hours Saturday through Saturday. For any emergency issues requiring immediate assistance over the weekend, please page Geriatrics pager [phone] Lin Wing MD Internal Medicine PGY1 Geriatric Consult Team Associated attestation - Daniela Loco MD - 01/31/2024 5:04 PM EDT I saw and evaluated the patient. I personally obtained the love and critical portions of the history and physical exam or was physically present for love and critical portions performed by the resident. I reviewed the resident's documentation and discussed the patient with the resident. I agree with the resident's medical decision making as documented in the note. Per TCC, daughter requesting a list of SNFs in [facility]. FARM PLANNER sent new SNF list to daughter. [facility] did not accept. Care Transitions will continue to follow. 1538-Daughter provided 4 SNF choices. Referrals sent for review. MELANIE [facility] Per TCC, patient is [facility]. FARM PL[employer]NER updated daughter Haily on moderate intensity PT recommendation. Daughter confirmed they are agreeable to SNF. When prompted, daughter states she is familiar with [facility] and [facility]). Referrals submitted for review. FARM PLANNER sent SNF list to daughter. Care Transitions will continue to follow. MELANIE [facility] Physical Therapy Physical Therapy Treatment Patient Name: Patrice Joel Department: [place] [id number] Room: [address] [place] [address] Today's Date: 01/30/2024 Time Calculation Start Time: 1015 (split session [id number]) Stop Time: 1129 (split session [id number]) Time Calculation (min): 43 min Assessment/Plan PT Assessment Evaluation/Treatment Tolerance: Patient limited by pain Medical Staff Made Aware: Yes End of Session Communication: Bedside nurse Assessment Comment: Pt able to complete PT session which focused on improving functoinal mobility. Vitals monitored throughout session and remained stable. Pt requiring modA for supine to and from sitting this session and Lee Ann for scooting. Able to complete transfers with maxAx1 to stand and modAx2 to transfer between bed and chair. Able to sit up in chair for ~30 minutes before PT was called to assist pt with transfer back to chair. Pt continues to demonstrate non-compliance with non-WB order of L LE despite frequent education. Pt would continue to benefit from skilled PT to work on functional mobility. End of Session Patient Position: Bed, 3 rail up, Alarm on (Up in chair with alarm on after first part of split session with pt) PT Plan Treatment/Interventions: Bed mobility, Transfer training, Gait training, Stair training, Balance training, Neuromuscular re-education, Strengthening, Endurance training, Range of motion, Therapeutic exercise, Therapeutic activity, Positioning PT Plan: Ongoing PT PT Frequency: 6 times per week PT Discharge Recommendations: Moderate intensity level of continued care Equipment Recommended upon Discharge: Wheeled walker PT Recommended Transfer Status: Assist x2 PT - OK to Discharge: Yes General Visit Information: PT Visit PT Received On: 01/30/24 Response to Previous Treatment: Patient with no complaints from previous session. General Missed Visit: No Family/Caregiver Present: No Prior to Session Communication: Bedside nurse Patient Position Received: Bed, 3 rail up, Alarm on General Comment: Pt awake, alert, and willing to participate in PT treatment. Reports that he healed himself last night and has been feeling good. (Split PT session: [id number], [id number]) Subjective Precautions: Precautions Hearing/Visual Limitations: Pt ALGAACIQ LE Weight Bearing Status: Left Non-Weight Bearing Medical Precautions: Fall precautions 01/30/24 1032 Vital Signs Vitals Session During PT Heart Rate 66 Heart Rate Source Monitor SpO2 97 % BP 146/72 MAP (mmHg) 97 BP Location Left arm BP Method Automatic Patient Position Sitting Vital Signs Comment Pt reported minor dizziness which improved with time. 01/30/24 1039 Vital Signs Vitals Session During PT Heart Rate 66 Heart Rate Source Monitor SpO2 99 % BP 149/81 MAP (mmHg) 104 BP Location Left arm BP Method Automatic Patient Position Sitting Vital Signs Comment Vitals measured after pt transferred to chair in room Objective Pain: Pain Assessment Pain Assessment: 0-10 0-10 (Numeric) Pain Score: 0 - No pain (Pt experiences pain with movement of L LE) Cognition: Cognition Overall Cognitive Status: Within Functional Limits Orientation Level: Oriented X4 Treatments: Therapeutic Activity Therapeutic Activity Performed: Yes Therapeutic Activity 1: Monitoring of vital signs throughout session to maintain pt safety with mobility. Vitals remained stable throughout session. Therapeutic Activity 2: Pt re-educated on importance of maintaining non-WB status on L LE to ensure proper healing. However, pt still displays non-compliance with functional mobility. Therapeutic Activity 3: Increased time throughout session to manage bouts of pain with movement of L LE. Bed Mobility Bed Mobility: Yes Bed Mobility 1 Bed Mobility 1: Supine to sitting Level of Assistance 1: Moderate assistance Bed Mobility Comments 1: ModA to advance L LE off of bed and help upright trunk, HOB elevated Bed Mobility 2 Bed Mobility 2: Sitting to supine Level of Assistance 2: Moderate assistance Bed Mobility Comments 2: ModA to place B LEs on bed, HOB elevated Bed Mobility 3 Bed Mobility 3: Scooting Level of Assistance 3: Minimum assistance, Minimal verbal cues Bed Mobility Comments 3: Min A to hold L LE up off of bed, verbal cues for pt to perform hip bridge and scoot hips towards center of bed Transfers Transfer: Yes Transfer 1 Transfer From 1: Bed to Transfer to 1: Stand Technique 1: Sit to stand Transfer Device 1: Walker Transfer Level of Assistance 1: Maximum assistance, Moderate verbal cues Trials/Comments 1: MaxA to extend hips and stand to FWW, unable to maintain non-WB on L LE despite frequent verbal cueing and attempt to bring foot of pt fwd Transfers 2 Transfer From 2: Stand to Transfer to 2: Chair with arms Technique 2: Stand pivot Transfer Device 2: Walker Transfer Level of Assistance 2: Moderate assistance, +2, Moderate verbal cues Trials/Comments 2: ModAx2 to pivot on R foot over to chair, verbal cues to avoid weight on L LE Transfers 3 Transfer From 3: Chair with arms to Transfer to 3: Bed Technique 3: Sit to stand, Stand pivot, Stand to sit Transfer Device 3: Walker Transfer Level of Assistance 3: Moderate assistance, +2, Moderate verbal cues (MaxAx2 for sit to stand, ModAx2 for stand pivot) Trials/Comments 3: Verbal cues to avoid weight on L LE. Pt continues to be non-compliant with non-WB order. Outcome Measures: [facility] Basic Mobility Turning from your back to your side while in a flat bed without using bedrails: A lot Moving from lying on your back to sitting on the side of a flat bed without using bedrails: A lot Moving to and from bed to chair (including a wheelchair): A lot Standing up from a chair using your arms (e.g. wheelchair or bedside chair): A lot To walk in hospital room: Total Climbing 3-5 steps with railing: Total Basic Mobility - Total Score: 10 Education Documentation Precautions, taught by JORDAN Neri at 01/30/2024 12:20 PM. Learner: Patient Readiness: Nonacceptance Method: Explanation Response: Needs Reinforcement Comment: Non-WB L LE order and importance of maintaining for proper healing Body Mechanics, taught by JORDAN Neri at 01/30/2024 12:20 PM. Learner: Patient Readiness: Nonacceptance Method: Explanation Response: Needs Reinforcement Comment: Non-WB L LE order and importance of maintaining for proper healing Mobility Training, taught by JORDAN Neri at 01/30/2024 12:20 PM. Learner: Patient Readiness: Nonacceptance Method: Explanation Response: Needs Reinforcement Comment: Non-WB L LE order and importance of maintaining for proper healing Education Comments No comments found. Encounter Problems Encounter Problems (Active) PT Problem Pt will complete bed mobility with [place] or less to promote improved ability to exit the bed (Progressing) Start: 01/29/24 Expected End: 02/12/24 Pt will be able to perform sit<->stand and bed<->chair with modAx1 or less and LRAD to promote improved mobility (Progressing) Start: 01/29/24 Expected End: 02/12/24 Pt will be able to ambulate 10 ft with modA and LRAD while maintaining L LE non WB status (Progressing) Start: 01/29/24 Expected End: 02/12/24 Pt will report compliance with there-ex program to promote improved outcomes (Progressing) Start: 01/29/24 Expected End: 02/12/24 Pain - Adult [facility] TRAUMA SERVICE - PROGRESS NOTE Patient Name: Patrice Joel Admit Date: [id number] : 1940 AGE: 83 y.o. GENDER: male 83 male presenting to [place] 2 days following a mGLF. baseline holistic, does not see doctor LOC (yes/no?): no Anticoagulant / Anti-platelet Rx? (for what dx?): no Referring Facility Name (N/A for scene EMR run): [place] INJURIES/problems: Non-displaced L periprosthetic femur fracture Post op anemia INCIDENTAL FINDINGS: Gastric thickening, hiatal hernia PROCEDURES: 01/27: ORIF L femur TODAY'S ASSESSMENT AND PLAN OF CARE: # Left femur fx - Non weight bearing left lower extremity - Pain: APAP 975mg Q8h kalie, Ibuprofen 600mg Q8h kalie, Robaxin 500mg Q6h PRN (reaction anaphylaxis morphine/codeine) consider oral dilaudid as warranted - HV 30/5 ss output, pulled 01/29 - Antibiotics: perioperative ancef 2g q8hr x3 doses - Recommend ASA 81mg BID for 6 weeks or suitable alternative per primary team - PT/OT - Moderate intensity with wheeled walker and tub bench at discharge # ABLA - Hg 9.8 -> (9.3) from 10.7 - Recheck as needed # Co-morbidities - Geriatric medicine consulted -> Pending recommendations Fen/gi/gu: - reg diet - senna/miralax - lytes/creatinine stable - voiding without isuse Ppx: - SCDS - Lvx Dispo: Continue care on Trauma service, Pending SNF choices and placement. Patient discussed with attending, ISMAEL [facility] Trauma, Critical Care, and Acute Care Surgery [id number] Total face to face time spent with patient/family of 30 minutes, with >50% of the time spent discussing plan of care/management, counseling/educating on disease processes, explaining results of diagnostic testing. CHIEF COMPLAINT / OVERNIGHT EVENTS: No adverse events overnight reported. MEDICAL HISTORY / ROS: Admission history and ROS reviewed. Pertinent changes as follows: None PHYSICAL EXAM: Heart Rate: [61-78] Temp: [36.1 C (97 F)-37.2 C (99 F)] Resp: [14-17] BP: (106-149)/(58-79) SpO2: [96 %-98 %] Physical Exam Vitals reviewed. Constitutional: General: He is not in acute distress. Appearance: Normal appearance. He is not ill-appearing or toxic-appearing. HENT: Head: Normocephalic. Nose: Nose normal. Mouth/Throat: Pharynx: Oropharynx is clear. Eyes: Extraocular Movements: Extraocular movements intact. Conjunctiva/sclera: Conjunctivae normal. Cardiovascular: Rate and Rhythm: Normal rate. Pulses: Normal pulses. Heart sounds: Normal heart sounds. Pulmonary: Effort: Pulmonary effort is normal. No respiratory distress. Breath sounds: Normal breath sounds. Abdominal: General: Bowel sounds are normal. There is no distension. Palpations: Abdomen is soft. There is no mass. Tenderness: There is no abdominal tenderness. There is no guarding. Musculoskeletal: General: Swelling, tenderness and signs of injury present. Cervical back: Normal range of motion. No tenderness. Right lower leg: Edema present. Left lower leg: Edema present. Comments: LLE: Post-operative Trudy and mepilex in place with moderate serosang strikethrough, Wiggles toes, DF and PF intact, SILT, foot wwp, 2+ DP/PT pulse, brisk cap refill, compartments soft and compressible, no pain with passive dorsiflexion Skin: General: Skin is warm and dry. Capillary Refill: Capillary refill takes less than 2 seconds. Neurological: General: No focal deficit present. Mental Status: He is alert and oriented to person, place, and time. GCS: GCS eye subscore is 4. GCS verbal subscore is 5. GCS motor subscore is 6. Cranial Nerves: No dysarthria. Sensory: Sensation is intact. Motor: Motor function is intact. Comments: Psychiatric: Mood and Affect: Mood normal. Behavior: Behavior normal. IMAGING SUMMARY: (summary of new imaging findings, not a copy of dictation) No new imaging LABS: Results from last 7 days Lab Units 01/29/24 0708 01/28/24 1636 01/27/24 1511 WBC AUTO x10*3/uL 7.0 8.6 7.9 HEMOGLOBIN g/dL 9.3* 10.7* 12.3* HEMATOCRIT % 28.2* 35.8* 36.5* PLATELETS AUTO x10*3/uL 179 154 182 NEUTROS PCT AUTO % -- -- 65.5 LYMPHS PCT AUTO % -- -- 12.3 MONOS PCT AUTO % -- -- 13.9 EOS PCT AUTO % -- -- 7.3 Results from last 7 days Lab Units 01/27/24 1511 INR 1.1 Results from last 7 days Lab Units 01/29/24 1154 01/28/24 1636 01/27/24 1511 SODIUM mmol/L 131* 131* 133* POTASSIUM mmol/L 4.5 4.8 4.5 CHLORIDE mmol/L 97* 100 101 CO2 mmol/L 27 23 27 BUN mg/dL 18 14 15 CREATININE mg/dL 0.95 0.74 0.71 CALCIUM mg/dL 8.6 8.2* 8.6 PROTEIN TOTAL g/dL -- -- 6.7 BILIRUBIN TOTAL mg/dL -- -- 0.8 ALK PHOS U/L -- -- 43 ALT U/L -- -- 12 AST U/L -- -- 17 GLUCOSE mg/dL 102* 142* 95 Results from last 7 days Lab Units 01/27/24 1511 BILIRUBIN TOTAL mg/dL 0.8 I have reviewed all medications, laboratory results, and imaging pertinent for today's encounter. Orthopaedic Surgery Progress Note Subjective: Pain well controlled considering recent surgery. Patient resting comfortably and no specific complaints Objective: BP 125/71 Pulse 61 Temp 36.1 C (97 F) (Temporal) Resp 14 Ht 1.854 m (6' 1) Wt 89.8 kg (198 lb) SpO2 97% BMI 26.12 kg/m Gen: arousable, NAD, hard of hearing but responsive Cardiac: RRR to peripheral palpation Resp: nonlabored on RA GI: soft, nondistended MSK: LLE: - Skin intact around heavy trudy, - Post-operative Trudy and mepilex in place without strikethrough bleeding. - Drain in place - Wiggles toes, DF and PF intact -SILT in saph/sural/SPN/DPN distributions -Foot wwp, 2+ DP/PT pulse, brisk cap refill -Compartments soft and compressible, no pain with passive dorsiflexion Assessment/Plan: 83 y.o. male s/p L periprosthetic femur ORIF on 01/[address] Buenrostro. Plan: - Weight bearing: Non weight bearing left lower extremity - DVT ppx: SCDs, recommend ASA 81mg BID for 6 weeks or suitable alternative per primary team - Diet: Regular ok from ortho perspective - Pain: Multimodal per primary - Antibiotics: perioperative ancef 2g q8hr x3 doses - HV 30/5 ss output, pulling today - [place] per primary Dispo: pending post-operative course Jonah Taylor MD PGY-1 [address] [facility] Epic Chat Preferred We will follow peripherally while patient is in house. Pt should be non-weight bearing until first follow up appointment. Patient will require 6 weeks total of DVT prophylaxis from an orthopedic standpoint, if ok per primary team. Patient currently has mepilex on surgical site. Dressing should be removed POD7. Please send home with Calcium/Vitamin D 500mg-400IU BID for 6 weeks. Patient should follow up w/ Dr. Buenrostro in 2-3 weeks after surgery for post-operative appointment (patient may call [phone] to schedule). Please page with questions. Physical Therapy Physical Therapy Evaluation Patient Name: Patrice Joel Department: [facility] 6 Room: 60/6023-A Today's Date: 01/29/2024 Time Calculation Start Time: 1035 Stop Time: 1114 Time Calculation (min): 39 min Assessment/Plan PT Assessment PT Assessment Results: Decreased strength, Decreased range of motion, Decreased endurance, Impaired balance, Decreased mobility, Orthopedic restrictions, Pain Rehab Prognosis: Good Evaluation/Treatment Tolerance: Patient limited by pain Medical Staff Made Aware: Yes Strengths: Attitude of self, Ability to acquire knowledge End of Session Communication: Bedside nurse Assessment Comment: Patrice Joel is a 83 y.o. male who was referred to inpatient physical therapy s/p ORIF L femur on 01/28/24 following a fall. The patient presents with the current impairments of decreased strength, decreased endurance, impaired balance, impaired functional mobility, decreased ROM, non WB L LE, and pain. These impairments currently limit their ability to complete functional mobility without assistance. Due to the limitations listed above, the patient is currently at a decreased functional level compared to baseline, and they would benefit from skilled physical therapy to improve functional mobility, strength, endurance, pain levels, ROM, and decrease risk of falls and facilitate a safe and efficient return to functional baseline. Patient's prognosis for improvement with therapy is Rehab Prognosis: Good at this time. End of Session Patient Position: Up in chair, Alarm on IP OR SWING BED PT PLAN Inpatient or Swing Bed: Inpatient PT Plan Treatment/Interventions: Bed mobility, Transfer training, Gait training, Stair training, Balance training, Neuromuscular re-education, Strengthening, Endurance training, Range of motion, Therapeutic exercise, Therapeutic activity, Positioning PT Plan: Ongoing PT PT Frequency: 6 times per week PT Discharge Recommendations: Moderate intensity level of continued care Equipment Recommended upon Discharge: Wheeled walker PT Recommended Transfer Status: Assist x2 PT - OK to Discharge: Yes Subjective General Visit Information: General Reason for Referral: Pt referred to inpatient PT following admission for L periprosthetic femur fracture due to mechanical fall. Pt is now s/p L femur ORIF on 01/28/24. Past Medical History Relevant to Rehab: B CIRILO ~14 years ago Missed Visit: No Family/Caregiver Present: No Prior to Session Communication: Bedside nurse Patient Position Received: Bed, 3 rail up, Alarm on Preferred Learning Style: auditory, verbal, visual General Comment: Pt awake, alert, and willing to participate in PT evaluation. Pt reports that he has been feeling better since last night, reports he was experiencing some nausea due to pain medication. (Hemovac drain to lateral aspect of L hip) Home Living: Home Living Type of Home: Apartment Lives With: Alone Home Adaptive Equipment: Cane Home Layout: One level Home Access: Level entry (small threshhold) Bathroom Shower/Tub: Tub/shower unit Bathroom Toilet: Standard Bathroom Equipment: None Home Living Comments: Pt lives with dog barber. Reports that his in June 2022 and he has recently lost a lot of weight since then (~70 pounds) Prior Level of Function: Prior Function Per Pt/Caregiver Report Level of [place]: Independent with ADLs and functional transfers ADL Assistance: Independent Homemaking Assistance: Independent Ambulatory Assistance: Independent (no AD for level ground, uses tripod cane when on uneven ground) Vocational: Retired ([employer]) Prior Function Comments: Pt reports that he had fall in bathtub about 1 month ago where he hit his head and hip Precautions: Precautions LE Weight Bearing Status: Left Non-Weight Bearing Medical Precautions: Fall precautions Objective Pain: Pain Assessment Pain Assessment: 0-10 0-10 (Numeric) Pain Score: 2 Pain Type: Surgical pain, Acute pain Pain Location: Hip Pain Orientation: Left Cognition: Cognition Overall Cognitive Status: Within Functional Limits Orientation Level: Oriented X4 Insight: Within function limits Impulsive: Mildly General Assessments: Activity Tolerance Endurance: Tolerates 10 - 20 min exercise with multiple rests Sensation Light Touch: No apparent deficits Perception Inattention/Neglect: Appears intact Coordination Movements are Fluid and Coordinated: Yes Postural Control Postural Control: Within Functional Limits Static Sitting Balance Static Sitting-Balance Support: No upper extremity supported, Bilateral upper extremity supported Static Sitting-Level of Assistance: Contact guard Functional Assessments: Bed Mobility Bed Mobility: Yes Bed Mobility 1 Bed Mobility 1: Supine to sitting Level of Assistance 1: Moderate assistance, +2 Bed Mobility Comments 1: ModA to elevate trunk and move L LE off of bed Transfers Transfer: Yes Transfer 1 Transfer From 1: Bed to Transfer to 1: Chair with arms Technique 1: Squat pivot Transfer Level of Assistance 1: Arm in arm assistance, Maximum assistance, +2, Maximum verbal cues Trials/Comments 1: MaxAx2 to get from bed to chair via squat pivot. Pt unable to maintain non-weightbearing on L LE (minimal weight) despite max verbal cues to kick leg out and place all weight on R LE. Ambulation/Gait Training Ambulation/Gait Training Performed: No Stairs Stairs: No Extremity/Trunk Assessments: RLE RLE : Within Functional Limits LLE LLE : Exceptions to WFL AROM LLE (degrees) LLE AROM Comment: Pt unable to fully extend L knee due to pain Strength LLE LLE Overall Strength: Deficits, Due to pain Outcome Measures: [facility] Basic Mobility Turning from your back to your side while in a flat bed without using bedrails: A lot Moving from lying on your back to sitting on the side of a flat bed without using bedrails: A lot Moving to and from bed to chair (including a wheelchair): A lot Standing up from a chair using your arms (e.g. wheelchair or bedside chair): A lot To walk in hospital room: Total Climbing 3-5 steps with railing: Total Basic Mobility - Total Score: 10 Encounter Problems Encounter Problems (Active) PT Problem Pt will complete bed mobility with Lee Ann or less to promote improved ability to exit the bed Start: 01/29/24 Expected End: 02/12/24 Pt will be able to perform sit<->stand and bed<->chair with modAx1 or less and LRAD to promote improved mobility Start: 01/29/24 Expected End: 02/12/24 Pt will be able to ambulate 10 ft with modA and LRAD while maintaining L LE non WB status Start: 01/29/24 Expected End: 02/12/24 Pt will report compliance with there-ex program to promote improved outcomes Start: 01/29/24 Expected End: 02/12/24 Pain - Adult Education Documentation Precautions, taught by JORDAN Neri at 01/29/2024 3:42 PM. Learner: Patient Readiness: Acceptance Method: Explanation Response: Verbalizes Understanding Comment: non WB L LE precautions, mobility techniques Body Mechanics, taught by Kal NeriPT at 01/29/2024 3:42 PM. Learner: Patient Readiness: Acceptance Method: Explanation Response: Verbalizes Understanding Comment: non WB L LE precautions, mobility techniques Mobility Training, taught by Jennifer Neri-PT at 01/29/2024 3:42 PM. Learner: Patient Readiness: Acceptance Method: Explanation Response: Verbalizes Understanding Comment: non WB L LE precautions, mobility techniques Education Comments No comments found. Occupational Therapy Evaluation/Treatment Patient Name: Patrice Joel Department: [place] [id number] Room: [id number] Today's Date: 01/29/24 Time Calculation Start Time: 1119 Stop Time: 1150 Time Calculation (min): 31 min Assessment: OT Assessment: Pt motivated to engage in OT eval and treat. Pt demo good tolerance to engage in ADL tasks and functional mobility with Min A-Max A. Pt limited by pain, decreased endurance, strength, activity tolerance, and balance. Pt would benefit from continued OT to address these deficits. Prognosis: Good Barriers to Discharge: None Evaluation/Treatment Tolerance: Patient limited by pain, Patient limited by fatigue Medical Staff Made Aware: Yes End of Session Communication: Bedside nurse End of Session Patient Position: Bed, 3 rail up, Alarm on OT Assessment Results: Decreased ADL status, Decreased upper extremity strength, Decreased safe judgment during ADL, Decreased endurance, Decreased fine motor control, Decreased functional mobility Prognosis: Good Barriers to Discharge: None Evaluation/Treatment Tolerance: Patient limited by pain, Patient limited by fatigue Medical Staff Made Aware: Yes Strengths: Attitude of self, Coping skills Barriers to Participation: Access to adaptive/assistive products, Capable of completing ADLs semi/independent, Comorbidities Plan: Treatment Interventions: ADL retraining, Functional transfer training, UE strengthening/ROM, Endurance training, Patient/family training, Equipment evaluation/education, Fine motor coordination activities, Compensatory technique education OT Frequency: 3 times per week OT Discharge Recommendations: Moderate intensity level of continued care Equipment Recommended upon Discharge: (tub bench) OT Recommended Transfer Status: Maximum assist, Assist of 2 OT - OK to Discharge: Yes Treatment Interventions: ADL retraining, Functional transfer training, UE strengthening/ROM, Endurance training, Patient/family training, Equipment evaluation/education, Fine motor coordination activities, Compensatory technique education Subjective Current Problem: 1. Closed fracture of left femur, unspecified fracture morphology, unspecified portion of femur, initial encounter (Multi) calcium carbonate-vitamin D3 (Oscal-500) 500 mg-10 mcg (400 unit) tablet 2. Periprosthetic fracture of proximal end of femur Case Request Operating Room: Open Reduction Internal Fixation Femur Case Request Operating Room: Open Reduction Internal Fixation Femur General: OT Received On: 01/29/24 General Reason for Referral: L periprosthetic femur fracture Past Medical History Relevant to Rehab: None, patient is holistic and does not see doctors Missed Visit: Yes Missed Visit Reason: Patient refused (pt stated come back later. Will check back as schedule permits) Family/Caregiver Present: No Prior to Session Communication: Bedside nurse Patient Position Received: Up in chair, Alarm on Preferred Learning Style: auditory, verbal General Comment: pt was awake and alert, sitting in chair upon OT arrival. Pt agreeable to participate in OT session. Precautions: LE Weight Bearing Status: Left Non-Weight Bearing Medical Precautions: Fall precautions Vital Signs Comment: BP 140/64 supine in bed at end of sesison; RN aware Pain: Pain Assessment Pain Assessment: 0-10 0-10 (Numeric) Pain Score: 4 Pain Type: Surgical pain Pain Location: Hip Pain Orientation: Left Pain Interventions: Repositioned Response to Interventions: best at rest Objective Cognition: Overall Cognitive Status: Within Functional Limits Orientation Level: Oriented X4 Home Living: Type of Home: House Lives With: Alone Home Adaptive Equipment: Walker rolling or standard, Cane Home Layout: One level Home Access: Other (Comment) (1 step into home) Bathroom Shower/Tub: Tub/shower unit Bathroom Toilet: Standard Bathroom Equipment: None Prior Function: Level of [place]: Independent with ADLs and functional transfers ADL Assistance: Independent Homemaking Assistance: Independent Ambulatory Assistance: Independent 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[employer]) Hand Dominance: Right IADL History: Homemaking Responsibilities: Yes Meal Prep Responsibility: Primary Laundry Responsibility: Primary Cleaning Responsibility: Primary Bill Paying/Finance Responsibility: Primary Shopping Responsibility: Primary Current License: Yes Mode of Transportation: Car ADL: Eating Assistance: Independent (anticipated) Grooming Assistance: Minimal (seated in chair) Grooming Deficit: Setup, Increased time to complete, Supervision/safety, Teeth care Bathing Assistance: Maximal (anticipated) Bathing Deficit: Steadying, Verbal cueing, Supervision/safety, Increased time to complete , Left lower leg including foot UE Dressing Assistance: Stand by (anticipated) UE Dressing Deficit: Steadying, Supervision/safety LE Dressing Assistance: Maximal LE Dressing Deficit: Supervision/safety, Don/doff R sock Toileting Assistance with Device: Maximal (anticipated) Toileting Deficit: Steadying, Verbal cueing, Supervison/safety, Increased time to complete, Clothing management up, Clothing management down Activities of Daily Living: Grooming Grooming Level of Assistance: Setup Grooming Where Assessed: Chair LE Dressing LE Dressing: Yes LE Dressing Where Assessed: Chair LE Dressing Comments: Max A to don sock over RLE Activity Tolerance: Endurance: Tolerates 10 - 20 min exercise with multiple rests Functional Standing Tolerance: Bed Mobility/Transfers: Bed Mobility Bed Mobility: Yes Bed Mobility 1 Bed Mobility 1: Sitting to supine Level of Assistance 1: Moderate assistance (Mod A x2) Transfers Transfer: Yes Transfer 1 Transfer From 1: Chair with arms to Transfer to 1: Stand, Sit Technique 1: Sit to stand, Stand to sit Transfer Device 1: Walker Transfer Level of Assistance 1: Maximum assistance, Maximum verbal cues (Max A x2) Trials/Comments 1: Max A x2 to transfer from chair to bed w FWW. Pt took 2-3 side steps to bed w FWW w Max A x2. Pt required Max verbal cues to adhere to LLE NWB precautions throughout functional mobility. Sitting Balance: Static Sitting Balance Static Sitting-Balance Support: No upper extremity supported Standing Balance: Dynamic Standing Balance Dynamic Standing-Balance Support: Bilateral upper extremity supported Dynamic Standing-Level of Assistance: Maximum assistance (Max A x2) Vision:Vision - Basic Assessment Current Vision: Wears glasses only for reading Sensation: Light Touch: No apparent deficits Strength: Other Activity: Home Environment: Perception: Inattention/Neglect: Appears intact Coordination: Movements are Fluid and Coordinated: Yes Hand Function: Hand Function Gross Grasp: Functional Coordination: Functional Extremities: RUE RUE : Within Functional Limits and LUE LUE: Within Functional Limits Outcome Measures: [facility] Daily Activity Putting on and taking off regular lower body clothing: A lot Bathing (including washing, rinsing, drying): A lot Putting on and taking off regular upper body clothing: A little Toileting, which includes using toilet, bedpan or urinal: A lot Taking care of personal grooming such as brushing teeth: A little Eating Meals: None Daily Activity - Total Score: 16 Education Documentation Body Mechanics, taught by Susan Brooks OT at 01/29/2024 2:04 PM. Learner: Patient Readiness: Acceptance Method: Explanation Response: Verbalizes Understanding Precautions, taught by Susan Brooks OT at 01/29/2024 2:04 PM. Learner: Patient Readiness: Acceptance Method: Explanation Response: Verbalizes Understanding ADL Training, taught by Susan Brooks OT at 01/29/2024 2:04 PM. Learner: Patient Readiness: Acceptance Method: Explanation Response: Verbalizes Understanding Education Comments No comments found. Goals: Encounter Problems Encounter Problems (Active) ADLs Patient with complete upper body dressing with independent level of assistance donning and doffing all UE clothes with PRN adaptive equipment while edge of bed (Progressing) Start: 01/29/24 Expected End: 02/19/24 Patient with complete lower body dressing with modified independent level of assistance donning and doffing socks and shoes with PRN adaptive equipment while edge of bed. (Progressing) Start: 01/29/24 Expected End: 02/19/24 Patient will complete daily grooming tasks brushing teeth and washing face/hair with independent level of assistance and PRN adaptive equipment while edge of bed . (Progressing) Start: 01/29/24 Expected End: 02/19/24 BALANCE Pt will maintain dynamic standing balance during ADL task with modified independent level of assistance with least restrictive device in order to demonstrate decreased risk of falling and improved postural control. (Progressing) Start: 01/29/24 Expected End: 02/19/24 COGNITION/SAFETY Patient will recall and adhere to non weight bearing precautions with all ADL and functional mobility in order to promote healing and safety with functional tasks (Progressing) Start: 01/29/24 Expected End: 02/19/24 MOBILITY Patient will perform Functional mobility max Household distances/Community Distances with modified independent level of assistance and least restrictive device in order to improve safety and functional mobility. (Progressing) Start: 01/29/24 Expected End: 02/19/24 TRANSFERS Patient will perform bed mobility independent level of assistance and bed rails in order to improve safety and independence with mobility (Progressing) Start: 01/29/24 Expected End: 02/19/24 Patient will complete sit to stand transfer with modified independent level of assistance and least restrictive device in order to improve safety and prepare for out of bed mobility. (Progressing) Start: 01/29/24 Expected End: 02/19/24 [facility] TRAUMA SERVICE - PROGRESS NOTE Patient Name: Patrice Joel Admit Date: [id number] : 1940 AGE: 83 y.o. GENDER: male 83 male presenting to [place] 2 days following a mGLF. baseline holistic, does not see doctor LOC (yes/no?): no Anticoagulant / Anti-platelet Rx? (for what dx?): no Referring Facility Name (N/A for scene EMR run): [place] INJURIES/problems: Non-displaced L periprosthetic femur fracture Post op anemia INCIDENTAL FINDINGS: Gastric thickening, hiatal hernia PROCEDURES: 01/27: ORIF L femur TODAY'S ASSESSMENT AND PLAN OF CARE: ## L femur fx, acute blood loss anemia - Orthopedics following: NWMana LLE, nadeen remaining, outpt fu sched 02/13, outpt course vte ppx/oscal at DC - pain control sched tylenol, motrin, robaxin as needed. Not fully clear on which opioid he has tolerated in past (reaction anaphylaxis morphine/codeine). Does not require or wants opioid at this time. Did tolerate IV dilaudid, so can consider oral dilaudid as warranted - Hg 9.3 from 10.7, recheck tomorrow with updated T&S - pt/ot rec rehab Fen/gi/gu: - reg diet - senna/miralax - lytes/creatinine stable - voiding without isuse Ppx: - SCDS - Lvx Dispo: Floor care, choices for rehab today needed Discussed with Dr. Jeffrey Dunlap PA-C Trauma [id number] CHIEF COMPLAINT / OVERNIGHT EVENTS: No adverse events overnight. Pain controlled without opioids to left hip, mild pain. No new numbness/tingling. MEDICAL HISTORY / ROS: Admission history and ROS reviewed. Pertinent changes as follows: PHYSICAL EXAM: Heart Rate: [60-68] Temp: [36.5 C (97.7 F)-37.4 C (99.3 F)] Resp: [12-18] BP: (116-133)/(59-80) SpO2: [96 %-100 %] Physical Exam Physical Exam: GEN: No acute distress, sitting in chair SKIN: Warm and dry CARDIO: Rate controlled rhythm RESP: Nml resp rate RA without resp distress GI: Soft, NT, ND : deferred MSK: AGEE EXTREM: L hip/thigh tenderness, mild. Accordian drain sanguinous. Compartments soft/compressible. 5/5 pf/df bilat NEURO: Alert and oriented with GCS 15, SILTx4 PSYCH: Nml affect IMAGING SUMMARY: (summary of new imaging findings, not a copy of dictation) No new imaging LABS: Results from last 7 days Lab Units 01/29/24 0708 01/28/24 1636 01/27/24 1511 WBC AUTO x10*3/uL 7.0 8.6 7.9 HEMOGLOBIN g/dL 9.3* 10.7* 12.3* HEMATOCRIT % 28.2* 35.8* 36.5* PLATELETS AUTO x10*3/uL 179 154 182 NEUTROS PCT AUTO % -- -- 65.5 LYMPHS PCT AUTO % -- -- 12.3 MONOS PCT AUTO % -- -- 13.9 EOS PCT AUTO % -- -- 7.3 Results from last 7 days Lab Units 01/27/24 1511 INR 1.1 Results from last 7 days Lab Units 01/29/24 1154 01/28/24 1636 01/27/24 1511 SODIUM mmol/L 131* 131* 133* POTASSIUM mmol/L 4.5 4.8 4.5 CHLORIDE mmol/L 97* 100 101 CO2 mmol/L 27 23 27 BUN mg/dL 18 14 15 CREATININE mg/dL 0.95 0.74 0.71 CALCIUM mg/dL 8.6 8.2* 8.6 PROTEIN TOTAL g/dL -- -- 6.7 BILIRUBIN TOTAL mg/dL -- -- 0.8 ALK PHOS U/L -- -- 43 ALT U/L -- -- 12 AST U/L -- -- 17 GLUCOSE mg/dL 102* 142* 95 Results from last 7 days Lab Units 01/27/24 1511 BILIRUBIN TOTAL mg/dL 0.8 I have reviewed all medications, laboratory results, and imaging pertinent for today's encounter. 01/29/24 0900 Discharge Planning Living Arrangements Other (Comment) (Alone) Support Systems Children Assistance Needed Yes Type of Residence Private residence Number of Stairs to Enter Residence 0 Number of Stairs Within Residence 0 Do you have animals or pets at home? Yes Type of Animals or Pets Dog Who is requesting discharge planning? Provider Does the patient need discharge transport arranged? Yes RoundTrip coordination needed? Yes Has discharge transport been arranged? No Financial Resource Strain How hard is it for you to pay for the very basics like food, housing, medical care, and heating? Not hard Housing Stability In the last 12 months, was there a time when you were not able to pay the mortgage or rent on time? N In the past 12 months, how many times have you moved where you were living? 0 At any time in the past 12 months, were you homeless or living in a senior care (including now)? N Transportation Needs In the past 12 months, has lack of transportation kept you from medical appointments or from getting medications? no In the past 12 months, has lack of transportation kept you from meetings, work, or from getting things needed for daily living? No I met with Patrice at the bedside regarding discharge planning and home going needs. Patient lives home alone where he is usually independent with ADL's he does have a walker and cane in the home. Patient is not medically cleared for discharge pending drain removal ane therapy recommendations. I will continue to follow with a safe discharge plan. Occupational Therapy Therapy Communication Note Patient Name: Patrice Joel Department: [place] [id number] Room: 60/6023-A Today's Date: 01/29/2024 Discipline: Occupational Therapy Missed Visit Reason: Missed Visit Reason: Patient refused (pt stated come back later. Will check back as schedule permits) Missed Time: Attempt Comment: Orthopaedic Surgery Progress Note Subjective: Pain well controlled considering recent surgery. Patient resting comfortably and no specific complaints Objective: BP 120/63 Pulse 62 Temp 36.8 C (98.2 F) Resp 16 Ht 1.854 m (6' 1) Wt 89.8 kg (198 lb) SpO2 97% BMI 26.12 kg/m Gen: arousable, NAD, hard of hearing but responsive Cardiac: RRR to peripheral palpation Resp: nonlabored on RA GI: soft, nondistended MSK: LLE: - Skin intact around heavy trudy, - Post-operative Trudy and mepilex in place without strikethrough bleeding. - Drain in place - Wiggles toes, DF and PF intact -SILT in saph/sural/SPN/DPN distributions -Foot wwp, 2+ DP/PT pulse, brisk cap refill -Compartments soft and compressible, no pain with passive dorsiflexion Assessment/Plan: 83 y.o. male s/p L periprosthetic femur ORIF on 01/[address] Buenrostro. Plan: - Weight bearing: Non weight bearing left lower extremity - DVT ppx: SCDs, recommend ASA 81mg BID for 6 weeks or suitable alternative per primary team - Diet: Regular ok from ortho perspective - Pain: Multimodal per primary - Antibiotics: perioperative ancef 2g q8hr x3 doses - HV 30/60/30 ss output, will leave in - [place] per primary Dispo: pending post-operative course Jonah Taylor MD PGY-[address] [facility] Epic Melanie Preferred This patient will be followed by the Orthopaedic Trauma service. Please page or Epic Chat the corresponding residents below with questions or concerns. Ortho Trauma Service (Epic Chat Preferred) First call: Jonah Taylor PGY-1 Second call: Roberto Apodaca PGY-2 Third call: Nathanael Bethea PGY-3 6pm-6am M-F, Holidays, and weekends page Ortho on-call @[phone] with urgent questions/concerns. [facility] TRAUMA SERVICE - PROGRESS NOTE Patient Name: Patrice Joel Admit Date: [id number] : 1940 AGE: 83 y.o. GENDER: male 83 male presenting to [place] 2 days following a mGLF. Found to have a L periprosthetic femur fracture. Transferred to [facility] for further orthopedic workup. Of note patient is holistic and does not see doctors. LOC (yes/no?): no Anticoagulant / Anti-platelet Rx? (for what dx?): no Referring Facility Name (N/A for scene EMR run): [place] INJURIES: Non-displaced L periprosthetic femur fracture OTHER MEDICAL PROBLEMS: none INCIDENTAL FINDINGS: Gastric thickening, hiatal hernia PROCEDURES: Pending ORIF TODAY'S ASSESSMENT AND PLAN OF CARE: ## L femur fx - Clear for OR with orthopedics, anticipated NWB post op - pain control sched tylenol, if opioid required will have to assess which he has tolerated in past - post op labs - pt/ot tomorrow Ppx: - SCDS - Lvx Dispo: Floor care CHIEF COMPLAINT / OVERNIGHT EVENTS: No adverse events since admit. MEDICAL HISTORY / ROS: Admission history and ROS reviewed. Pertinent changes as follows: PHYSICAL EXAM: Heart Rate: [65-72] Temp: [36.5 C (97.7 F)-37.2 C (99 F)] Resp: [10-20] BP: (99-149)/(52-80) Height: [185.4 cm (6' 1)] Weight: [89.8 kg (198 lb)] SpO2: [92 %-100 %] Physical Exam Physical Exam: GEN: No acute distress SKIN: Warm and dry CARDIO: Rate controlled rhythm RESP: Nml resp rate RA without resp distress GI: Soft, NT, ND : deferred MSK: AGEE EXTREM: L hip/thigh tenderness NEURO: Alert and oriented with GCS 15, SILTx4 PSYCH: Nml affect IMAGING SUMMARY: (summary of new imaging findings, not a copy of dictation) No new imaging LABS: Results from last 7 days Lab Units 01/27/24 1511 WBC AUTO x10*3/uL 7.9 HEMOGLOBIN g/dL 12.3* HEMATOCRIT % 36.5* PLATELETS AUTO x10*3/uL 182 NEUTROS PCT AUTO % 65.5 LYMPHS PCT AUTO % 12.3 MONOS PCT AUTO % 13.9 EOS PCT AUTO % 7.3 Results from last 7 days Lab Units 01/27/24 1511 INR 1.1 Results from last 7 days Lab Units 01/27/24 1511 SODIUM mmol/L 133* POTASSIUM mmol/L 4.5 CHLORIDE mmol/L 101 CO2 mmol/L 27 BUN mg/dL 15 CREATININE mg/dL 0.71 CALCIUM mg/dL 8.6 PROTEIN TOTAL g/dL 6.7 BILIRUBIN TOTAL mg/dL 0.8 ALK PHOS U/L 43 ALT U/L 12 AST U/L 17 GLUCOSE mg/dL 95 Results from last 7 days Lab Units 01/27/24 1511 BILIRUBIN TOTAL mg/dL 0.8 I have reviewed all medications, laboratory results, and imaging pertinent for today's encounter. Orthopaedic Surgery Progress Note Subjective: Evaluated in immediate postoperative period. Pain well controlled considering recent surgery. Denies chest pain, shortness of breath, or fevers. Objective: BP 130/62 Pulse 69 Temp 36.7 C (98.1 F) (Temporal) Resp 20 Ht 1.854 m (6' 1) Wt 89.8 kg (198 lb) SpO2 99% BMI 26.12 kg/m Gen: arousable, NAD, hard of hearing but responsive Cardiac: RRR to peripheral palpation Resp: nonlabored on RA GI: soft, nondistended MSK: LLE: - Skin intact around heavy trudy, - Post-operative Trudy and mepilex in place without strikethrough bleeding. - Drain in place - Wiggles toes, DF and PF intact -SILT in saph/sural/SPN/DPN distributions -Foot wwp, 2+ DP/PT pulse, brisk cap refill -Compartments soft and compressible, no pain with passive dorsiflexion Assessment/Plan: 83 y.o. male s/p L periprosthetic femur ORIF on 01/[address] Buenrostro. Plan: - Weight bearing: Non weight bearing left lower extremity - DVT ppx: SCDs, recommend ASA 81mg BID for 6 weeks or suitable alternative per primary team - Diet: Regular ok from ortho perspective - Pain: Multimodal per primary - Antibiotics: perioperative ancef 2g q8hr x3 doses - [place] per primary Dispo: pending post-operative course Jonah Taylor MD PGY-1 [address] [facility] Epic Chat Preferred This patient will be followed by the Orthopaedic Trauma service. Please page or Epic Chat the corresponding residents below with questions or concerns. Ortho Trauma Service (Epic Chat Preferred) First call: Jonah Taylor, PGY-1 Second call: Roberto Apodaca, PGY-2 Third call: Nathanael Bethea, PGY-3 6pm-6am M-F, Holidays, and weekends page Ortho on-call @[phone] with urgent questions/concerns. documented in this encounter [facility] Work Phone: 02-04-2024 Plan of care note The patient's goals for the shift include The clinical goals for the shift include pt will remain safe throughout my shift Problem: Pain - Adult Goal: Verbalizes/displays adequate comfort level or baseline comfort level Outcome: Progressing Problem: Discharge Planning Goal: Discharge to home or other facility with appropriate resources Outcome: Progressing Problem: Pain Goal: Takes deep breaths with improved pain control throughout the shift Outcome: Progressing Goal: Turns in bed with improved pain control throughout the shift Outcome: Progressing Goal: Walks with improved pain control throughout the shift Outcome: Progressing Goal: Performs ADL's with improved pain control throughout shift Outcome: Progressing Goal: Participates in PT with improved pain control throughout the shift Outcome: Progressing Problem: Skin Goal: Decreased wound size/increased tissue granulation at next dressing change Outcome: Progressing Goal: Participates in plan/prevention/treatment measures Outcome: Progressing Goal: Prevent/manage excess moisture Outcome: Progressing Goal: Prevent/minimize sheer/friction injuries Outcome: Progressing Goal: Promote/optimize nutrition Outcome: Progressing Goal: Promote skin healing Outcome: Progressing [facility] 02-04-2024 Miscellaneous Notes The patient's goals for the shift include The clinical goals for the shift include pt will remain safe throughout my shift Problem: Pain - Adult Goal: Verbalizes/displays adequate comfort level or baseline comfort level Outcome: Progressing Problem: Discharge Planning Goal: Discharge to home or other facility with appropriate resources Outcome: Progressing Problem: Pain Goal: Takes deep breaths with improved pain control throughout the shift Outcome: Progressing Goal: Turns in bed with improved pain control throughout the shift Outcome: Progressing Goal: Walks with improved pain control throughout the shift Outcome: Progressing Goal: Performs ADL's with improved pain control throughout shift Outcome: Progressing Goal: Participates in PT with improved pain control throughout the shift Outcome: Progressing Problem: Skin Goal: Decreased wound size/increased tissue granulation at next dressing change Outcome: Progressing Goal: Participates in plan/prevention/treatment measures Outcome: Progressing Goal: Prevent/manage excess moisture Outcome: Progressing Goal: Prevent/minimize sheer/friction injuries Outcome: Progressing Goal: Promote/optimize nutrition Outcome: Progressing Goal: Promote skin healing Outcome: Progressing The patient's goals for the shift include The clinical goals for the shift include Pt will remain safe and pain controlled during night. Pt remained safe and free of injury during night. Pain controlled with tylenol. No other distress noted. Call light in reach. Resting quietly at this time. Phyllis Soto RN' The patient's goals for the shift include keep pain at a tolerable level throughout shift. The clinical goals for the shift include will remain safe and free of falls throughout shift. Problem: Pain - Adult Goal: Verbalizes/displays adequate comfort level or baseline comfort level Outcome: Progressing Problem: Discharge Planning Goal: Discharge to home or other facility with appropriate resources Outcome: Progressing Problem: Pain Goal: Takes deep breaths with improved pain control throughout the shift Outcome: Progressing Goal: Turns in bed with improved pain control throughout the shift Outcome: Progressing Goal: Walks with improved pain control throughout the shift Outcome: Progressing Goal: Performs ADL's with improved pain control throughout shift Outcome: Progressing Goal: Participates in PT with improved pain control throughout the shift Outcome: Progressing Problem: Skin Goal: Decreased wound size/increased tissue granulation at next dressing change Outcome: Progressing Goal: Participates in plan/prevention/treatment measures Outcome: Progressing Goal: Prevent/manage excess moisture Outcome: Progressing Goal: Prevent/minimize sheer/friction injuries Outcome: Progressing Goal: Promote/optimize nutrition Outcome: Progressing Goal: Promote skin healing Outcome: Progressing Problem: Pain Goal: Takes deep breaths with improved pain control throughout the shift Outcome: Progressing Goal: Turns in bed with improved pain control throughout the shift Outcome: Progressing Goal: Walks with improved pain control throughout the shift Outcome: Progressing Goal: Performs ADL's with improved pain control throughout shift Outcome: Progressing Goal: Participates in PT with improved pain control throughout the shift Outcome: Progressing The clinical goals for the shift include patient will remain safe and free from injury through end of shift Problem: Pain - Adult Goal: Verbalizes/displays adequate comfort level or baseline comfort level Outcome: Progressing Problem: Discharge Planning Goal: Discharge to home or other facility with appropriate resources Outcome: Progressing Problem: Pain Goal: Takes deep breaths with improved pain control throughout the shift Outcome: Progressing Goal: Turns in bed with improved pain control throughout the shift Outcome: Progressing Goal: Walks with improved pain control throughout the shift Outcome: Progressing Goal: Performs ADL's with improved pain control throughout shift Outcome: Progressing Goal: Participates in PT with improved pain control throughout the shift Outcome: Progressing Problem: Skin Goal: Decreased wound size/increased tissue granulation at next dressing change Outcome: Progressing Goal: Participates in plan/prevention/treatment measures Outcome: Progressing Goal: Prevent/manage excess moisture Outcome: Progressing Goal: Prevent/minimize sheer/friction injuries Outcome: Progressing Goal: Promote/optimize nutrition Outcome: Progressing Goal: Promote skin healing Outcome: Progressing Problem: Pain - Adult Goal: Verbalizes/displays adequate comfort level or baseline comfort level Outcome: Progressing Problem: Safety - Adult Goal: Free from fall injury Outcome: Met Problem: Discharge Planning Goal: Discharge to home or other facility with appropriate resources Outcome: Progressing Problem: Pain Goal: Takes deep breaths with improved pain control throughout the shift Outcome: Progressing Goal: Turns in bed with improved pain control throughout the shift Outcome: Progressing Goal: Walks with improved pain control throughout the shift Outcome: Progressing Goal: Performs ADL's with improved pain control throughout shift Outcome: Progressing Goal: Participates in PT with improved pain control throughout the shift Outcome: Progressing The clinical goals for the shift include patient remains safe throughout shift The patient's goals for the shift include The clinical goals for the shift include pt will have pain managed and reman safe throughout my shift Problem: Pain - Adult Goal: Verbalizes/displays adequate comfort level or baseline comfort level Outcome: Progressing Problem: Safety - Adult Goal: Free from fall injury Outcome: Progressing Problem: Discharge Planning Goal: Discharge to home or other facility with appropriate resources Outcome: Progressing Problem: Pain Goal: Takes deep breaths with improved pain control throughout the shift Outcome: Progressing Goal: Turns in bed with improved pain control throughout the shift Outcome: Progressing Goal: Walks with improved pain control throughout the shift Outcome: Progressing Goal: Performs ADL's with improved pain control throughout shift Outcome: Progressing Goal: Participates in PT with improved pain control throughout the shift Outcome: Progressing Problem: Skin Goal: Decreased wound size/increased tissue granulation at next dressing change Outcome: Progressing Goal: Participates in plan/prevention/treatment measures Outcome: Progressing Goal: Prevent/manage excess moisture Outcome: Progressing Goal: Prevent/minimize sheer/friction injuries Outcome: Progressing Goal: Promote/optimize nutrition Outcome: Progressing Goal: Promote skin healing Outcome: Progressing Problem: Pain - Adult Goal: Verbalizes/displays adequate comfort level or baseline comfort level Outcome: Progressing Problem: Safety - Adult Goal: Free from fall injury Outcome: Progressing Problem: Discharge Planning Goal: Discharge to home or other facility with appropriate resources Outcome: Progressing Problem: Pain Goal: Takes deep breaths with improved pain control throughout the shift Outcome: Progressing Goal: Turns in bed with improved pain control throughout the shift Outcome: Progressing Goal: Walks with improved pain control throughout the shift Outcome: Progressing Goal: Performs ADL's with improved pain control throughout shift Outcome: Progressing Goal: Participates in PT with improved pain control throughout the shift Outcome: Progressing Problem: Skin Goal: Participates in plan/prevention/treatment measures Outcome: Progressing Goal: Prevent/manage excess moisture Outcome: Progressing Goal: Prevent/minimize sheer/friction injuries Outcome: Progressing Goal: Promote/optimize nutrition Outcome: Progressing Goal: Promote skin healing Outcome: Progressing Problem: Chronic Conditions and Co-morbidities Goal: Patient's chronic conditions and co-morbidity symptoms are monitored and maintained or improved Outcome: Met Problem: Pain Goal: Free from opioid side effects throughout the shift Outcome: Met Goal: Free from acute confusion related to pain meds throughout the shift Outcome: Met The patient's goals for the shift include The clinical goals for the shift include Pt will get up to chair to eat a meal during shift Spoke with patient regarding medication allergies. States he was told he doesn't have a true allergy, that he just took too much and his breathing decreased. States he hadn't tried lower doses of medication. Spoke with pharmacy after conversation with patient. Given patient previously took dilaudid this admission and tolerated, along with the lower cross-reactivity using dilaudid with his documented allergy, pharmacy stated dilaudid 0.2 and 0.4 is ok to use for moderate and severe pain. Lucy Chen PA-C Trauma, Critical Care, Acute Care Surgery Floor: 04389 TSICU: [id number] Open Reduction Internal Fixation Femur (L) Operative Note Date: 01/28/2024 OR Location: [facility] OR Name: Patrice Joel, : 1940, Age: 83 y.o., , Sex: male Diagnosis Pre-op Diagnosis * Periprosthetic fracture of proximal end of femur [M97.8XXA, Z96.649] Post-op Diagnosis * Periprosthetic fracture of proximal end of femur [M97.8XXA, Z96.649] Procedures Open Reduction Internal Fixation Femur 34453 - GA OPTX FEM SHFT FX W/PLATE/SCREWS W/WO CERCLAGE Surgeons * Frederic Buenrostro - Primary Resident/Fellow/Other Php Consultant: Surgeons and Role: * Toya Mayfield PA-C - Resident - Assisting * Jonah Taylor MD - Resident - Assisting * Samuel Gates DO - Resident - Assisting Procedure Summary Anesthesia: General ASA: III Anesthesia Staff: Anesthesiologist: Abilio Hernández DO C-AA: YANCI Ruth; YANCI Calhoun Estimated Blood Loss: 500mL Intra-op Medications: Administrations occurring from 0655 to 0945 on 01/28/24: Medication Name Total Dose vancomycin (Vancocin) vial for injection 1 g tobramycin (Nebcin) injection 1,200 mg sodium chloride 0.9 % irrigation solution 3,000 mL polyethylene glycol (Glycolax, Miralax) packet 17 g Cannot be calculated Anesthesia Record Intraprocedure I/O Totals Intake electrolyte-A (Plasmalyte-A) 1000.00 mL Tranexamic Acid 0.00 mL The total shown is the total volume documented since Anesthesia Start was filed. Total Intake 1000 mL Output Urine 650 mL Total Output 650 mL Net Net Volume 350 mL Specimen: No specimens collected Staff: Scrub Person: Jennifer Scrub Person: Braulio Spring Up Supervisor: Megan Spring Up Supervisor: Fernanda Relief Spring Up Supervisor: Jed Drains and/or Catheters: Closed/Suction Drain 1 Left Thigh 10 Fr. (Active) Urethral Catheter Double-lumen;Non-latex 16 Fr. (Active) Tourniquet Times: Implants: Implants Type Name Action Serial No. CONNECTING SCREW F/VAVPPFX GT RING ATTCHMT PLATE Implanted 8 HOLE PPFX PLATE Implanted Screw CABLE W/CRIMP, 1.7 X 750MM, SS, STERILE - [id number] Implanted GT ATTACH PLATE Implanted Screw SCREW, CORTICAL, SELF-TAPPING, 4.5 X 38 MM, STAINLESS STEEL - [id number] Implanted Screw SCREW, LOCK 5.[address] T25 - [id number] Implanted Screw CABLE W/CRIMP, 1.7 X 750MM, SS, STERILE - [id number] Implanted Screw PIN 4.5 CERCLAGE POSITIONING - [id number] Implanted Screw SCREW, VARIABLE ANGLE, 50MM, LOCKING, ST - [id number] Implanted Screw SCREW, VARIABLE ANGLE, 46MM, LOCKING, ST - [id number] Implanted Screw SCREW, VARIABLE ANGLE, 44MM, LOCKING, ST - [id number] Implanted Screw SCREW, VARIABLE ANGLE, 40MM, LOCKING, ST - [id number] Implanted Screw SCREW, VARIABLE ANGLE, 36MM, LOCKING, ST - [id number] Implanted Screw SCREW, VARIABLE ANGLE, 32MM, LOCKING, ST - [id number] Implanted Screw SCREW, VARABLE ANGLE LKG, SELF TAP, 3.5 X 38MM - [id number] Implanted Findings: Left periprosthetic femur fracture with stable stem Indications: Patrice Joel is an 83 y.o. male who is having surgery for Periprosthetic fracture of proximal end of femur [M97.8XXA, Z96.649]. The patient was seen in the preoperative area. The risks, benefits, complications, treatment options, non-operative alternatives, expected recovery and outcomes were discussed with the patient. The possibilities of reaction to medication, pulmonary aspiration, injury to surrounding structures, bleeding, recurrent infection, the need for additional procedures, failure to diagnose a condition, and creating a complication requiring transfusion or operation were discussed with the patient. The patient concurred with the proposed plan, giving informed consent. The site of surgery was properly noted/marked if necessary per policy. The patient has been actively warmed in preoperative area. Preoperative antibiotics have been ordered and given within 1 hours of incision. Venous thrombosis prophylaxis have been ordered including unilateral sequential compression device Procedure Details: Patient was brought back to the operating room and initially placed supine on the operating room table all bony prominences well-padded. Surgical timeout was performed confirming the patient by name, medical record number, date of , surgery to be performed, surgical site and laterality, and patient allergies. All in attendance were in agreement. Anesthesia was then induced by the anesthesia team per protocol. The patient was was then transition to a lateral decubitus position with the left side up stabilized by the beanbag. All bony prominences well-padded. The left lower extremities then prepped and draped in the standard orthopedic fashion. Patient had a prior posterior approach for their total hip that was performed in 2009, the surgical incision was then used from the tip of the greater trochanter to the mid femur. This performed sharply with a knife. Using Bovie electrocautery the subcutaneous tissue was dissected to the level of the IT band as well as achieve hemostasis. The IT band was then split in line with the femur through the entirety of our incision. We then detached vastus lateralis at the vastus ridge in an L-shaped fashion and split the fascia of the vastus leaving a cuff of tissue to repair at the end longitudinally. The vastus musculature was dissected off of the fascia, with perforating vessels coagulated while dissecting. The muscle was then elevated off of the femur using a au elevator. We then had excellent exposure from the tip of the greater trochanter to the mid femur. Our fracture was visualized and bone ends were cleaned with irrigation, 15 blade, elevator, and suction. At this point we assessed the stability of the femoral stem. The greater trochanter piece was clearly mobile, but the stem remained intact to the distal shaft with any manipulation of the femur including axial traction as well as rotation. At this point we made the decision to continue with ORIF rather than revision hip placement, as we felt the prior femoral stem was quite stable. Using a large lobster-claw clamp the fracture was reduced. We placed a large periarticular proximal femur plate in appropriate position. The plate was held in place with clamps. Distally, a bicortical cortical screw was drilled measured and placed to suck the plate to bone. Proximally, to secure the greater trochanter fragment a cable was passed around the calcar and around the plate and tensioned appropriately. A second cable was passed below the level of the lesser trochanter and compressed our fracture further after being tensioned appropriately. We then filled the proximal locking cluster in the greater trochanter after drilled and measuring. Distally, an additional 2 bicortical cortical screws were drilled measured and placed. And 2 bicortical locking screws were drilled measured and placed. We were able to place 2 locking screws bicortically around the stem near the fracture site. Orthogonal imaging demonstrated appropriate hardware placement and adequately reduced fracture. Our attention then turned to closure. The wound was copiously irrigated with several liters of normal saline. Vancomycin tobramycin powder were placed in the wound. A 10 Egyptian round drain was then placed below the vastus musculature and out proximal and anterior to our incision. The fascia of the vastus was then closed with #1 Vicryl in running fashion. The insertion of the vastus was repaired with #1 Vicryl in [id number] fashion. The IT band was closed in #1 Vicryl in running fashion. Subcutaneous tissue closed with 2-0 Vicryl in interrupted fashion. Skin closed with marlin. We ensured that the drain was mobile and not inadvertently sutured in. A Mepilex dressing was then placed over the wound as well as a Trudy bandage. Patient was then awoken by the anesthesia team, transferred to the hospital bed, and brought to PACU in stable condition without complication. Complications: None; patient tolerated the procedure well. Disposition: PACU - hemodynamically stable. Condition: stable Attending Attestation: I was present and scrubbed for the entire procedure. Frederic Buenrostro Date: 01/28/2024 OR Location: [facility] OR Name: Patrice Joel, : 1940, Age: 83 y.o., , Sex: male Diagnosis Pre-op Diagnosis * Periprosthetic fracture of proximal end of femur [M97.8XXA, Z96.649] Post-op Diagnosis * Periprosthetic fracture of proximal end of femur [M97.8XXA, Z96.649] Procedures Open Reduction Internal Fixation Femur 43224 - GA OPTX FEM SHFT FX W/PLATE/SCREWS W/WO CERCLAGE Surgeons * Frederic Buenrostro - Primary Resident/Fellow/Other Php Consultant: Surgeons and Role: * Toya Mayfield PA-C - Resident - Assisting * Jonah Taylor MD - Resident - Assisting * Samuel Gates DO - Resident - Assisting Procedure Summary Anesthesia: General ASA: III Anesthesia Staff: Anesthesiologist: Abilio Hernández DO C-AA: YANCI Ruth; YANCI Calhoun Estimated Blood Loss: 500mL Intra-op Medications: Administrations occurring from 0655 to 0945 on 01/28/24: Medication Name Total Dose vancomycin (Vancocin) vial for injection 1 g tobramycin (Nebcin) injection 1,200 mg sodium chloride 0.9 % irrigation solution 3,000 mL polyethylene glycol (Glycolax, Miralax) packet 17 g Cannot be calculated Anesthesia Record Intraprocedure I/O Totals Intake electrolyte-A (Plasmalyte-A) 1000.00 mL Tranexamic Acid 0.00 mL The total shown is the total volume documented since Anesthesia Start was filed. Total Intake 1000 mL Output Urine 650 mL Total Output 650 mL Net Net Volume 350 mL Specimen: No specimens collected Staff: Scrub Person: Jennifer Scrub Person: Braulio Spring Up Supervisor: Megan Spring Up Supervisor: Fernanda Hilliard Spring Up Supervisor: Jed Findings: L periprosthetic femur fracture, s/p ORIF Complications: None; patient tolerated the procedure well. Disposition: PACU - hemodynamically stable. Condition: stable Specimens Collected: No specimens collected Attending Attestation: I was present and scrubbed for the love portions of the procedure. Frederic Buenrostro The patient's goals for the shift include The clinical goals for the shift include Pt will remain safe and pain controlled during night. Pt admitted to LT6 after fall and left femur broken. MNNPO for surgery this morning. Pain controlled with tylenol and robaxin. Complained of heartburn and tums administered. $ eye skin assessment done with CTA Radha. Call light in reach. Phyllis Soto RN 83 y/o male with PMH htn and bilateral hip replacements (2009) presenting to [place] 2 days following a mGLF. Negative LOC, headstrike, or blood thinners. Found to have a L periprosthetic femur fracture. Transferred to [facility] for further orthopedic workup. Of note patient is holistic and does not see doctors. Patient went to OR with orthopedics on 01/27 for ORIF L femur. Will remain NWB LLE until outpatient follow up on 02/13. Due to anaphylactic allergy listed to morphine/codeine, pain control primarily controlled with non opioids, patient tolerated well. PT/OT recommended moderate intensity. Will be discharged to [facility] [place]. documented in this encounter [facility] Work Phone: 02-03-2024 Plan of care note The patient's goals for the shift include The clinical goals for the shift include Pt will remain safe and pain controlled during night. Pt remained safe and free of injury during night. Pain controlled with tylenol. No other distress noted. Call light in reach. Resting quietly at this time. Phyllis Soto RN' [facility] Work Phone: 02-02-2024 Plan of care note The patient's goals for the shift include keep pain at a tolerable level throughout shift. The clinical goals for the shift include will remain safe and free of falls throughout shift. Problem: Pain - Adult Goal: Verbalizes/displays adequate comfort level or baseline comfort level Outcome: Progressing Problem: Discharge Planning Goal: Discharge to home or other facility with appropriate resources Outcome: Progressing Problem: Pain Goal: Takes deep breaths with improved pain control throughout the shift Outcome: Progressing Goal: Turns in bed with improved pain control throughout the shift Outcome: Progressing Goal: Walks with improved pain control throughout the shift Outcome: Progressing Goal: Performs ADL's with improved pain control throughout shift Outcome: Progressing Goal: Participates in PT with improved pain control throughout the shift Outcome: Progressing Problem: Skin Goal: Decreased wound size/increased tissue granulation at next dressing change Outcome: Progressing Goal: Participates in plan/prevention/treatment measures Outcome: Progressing Goal: Prevent/manage excess moisture Outcome: Progressing Goal: Prevent/minimize sheer/friction injuries Outcome: Progressing Goal: Promote/optimize nutrition Outcome: Progressing Goal: Promote skin healing Outcome: Progressing [facility] 02-02-2024 Plan of care note Problem: Pain Goal: Takes deep breaths with improved pain control throughout the shift Outcome: Progressing Goal: Turns in bed with improved pain control throughout the shift Outcome: Progressing Goal: Walks with improved pain control throughout the shift Outcome: Progressing Goal: Performs ADL's with improved pain control throughout shift Outcome: Progressing Goal: Participates in PT with improved pain control throughout the shift Outcome: Progressing [facility] 02-02-2024 Plan of care note The clinical goals for the shift include patient will remain safe and free from injury through end of shift Problem: Pain - Adult Goal: Verbalizes/displays adequate comfort level or baseline comfort level Outcome: Progressing Problem: Discharge Planning Goal: Discharge to home or other facility with appropriate resources Outcome: Progressing Problem: Pain Goal: Takes deep breaths with improved pain control throughout the shift Outcome: Progressing Goal: Turns in bed with improved pain control throughout the shift Outcome: Progressing Goal: Walks with improved pain control throughout the shift Outcome: Progressing Goal: Performs ADL's with improved pain control throughout shift Outcome: Progressing Goal: Participates in PT with improved pain control throughout the shift Outcome: Progressing Problem: Skin Goal: Decreased wound size/increased tissue granulation at next dressing change Outcome: Progressing Goal: Participates in plan/prevention/treatment measures Outcome: Progressing Goal: Prevent/manage excess moisture Outcome: Progressing Goal: Prevent/minimize sheer/friction injuries Outcome: Progressing Goal: Promote/optimize nutrition Outcome: Progressing Goal: Promote skin healing Outcome: Progressing [facility] 02-01-2024 Plan of care note Problem: Pain - Adult Goal: Verbalizes/displays adequate comfort level or baseline comfort level Outcome: Progressing Problem: Safety - Adult Goal: Free from fall injury Outcome: Met Problem: Discharge Planning Goal: Discharge to home or other facility with appropriate resources Outcome: Progressing Problem: Pain Goal: Takes deep breaths with improved pain control throughout the shift Outcome: Progressing Goal: Turns in bed with improved pain control throughout the shift Outcome: Progressing Goal: Walks with improved pain control throughout the shift Outcome: Progressing Goal: Performs ADL's with improved pain control throughout shift Outcome: Progressing Goal: Participates in PT with improved pain control throughout the shift Outcome: Progressing The clinical goals for the shift include patient remains safe throughout shift [facility] Work Phone: 01-31-2024 Plan of care note The patient's goals for the shift include The clinical goals for the shift include pt will have pain managed and reman safe throughout my shift Problem: Pain - Adult Goal: Verbalizes/displays adequate comfort level or baseline comfort level Outcome: Progressing Problem: Safety - Adult Goal: Free from fall injury Outcome: Progressing Problem: Discharge Planning Goal: Discharge to home or other facility with appropriate resources Outcome: Progressing Problem: Pain Goal: Takes deep breaths with improved pain control throughout the shift Outcome: Progressing Goal: Turns in bed with improved pain control throughout the shift Outcome: Progressing Goal: Walks with improved pain control throughout the shift Outcome: Progressing Goal: Performs ADL's with improved pain control throughout shift Outcome: Progressing Goal: Participates in PT with improved pain control throughout the shift Outcome: Progressing Problem: Skin Goal: Decreased wound size/increased tissue granulation at next dressing change Outcome: Progressing Goal: Participates in plan/prevention/treatment measures Outcome: Progressing Goal: Prevent/manage excess moisture Outcome: Progressing Goal: Prevent/minimize sheer/friction injuries Outcome: Progressing Goal: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 for allowing geriatric medicine to be involved in the care of your patient. Geriatric medicine consultation team is available during work hours Saturday through Saturday. For any emergency issues requiring immediate assistance over the weekend, please page Geriatrics pager [phone] Consult Billing Time Prep time on date of patient encounter(minutes): 45 Time directly with patient/family/caregiver(minutes ): 60 Documentation time(minutes): 45 TOTAL TIME(minutes): 150 Lin Wing MD Internal Medicine PGY1 Geriatric Consult Team I saw and evaluated the patient. I personally obtained the love and critical portions of the history and physical exam or was physically present for love and critical portions performed by the resident. I reviewed the resident s documentation and discussed the patient with the resident. I agree with the resident s medical decision making as documented in their note with the exception/addition of the following: Few few comment in italics Daniela Loco MD [facility] Department of Orthopaedic Surgery Initial Consult Note HPI: 83M (h/o bilateral CIRILO in 2009) transfer from [facility][1] about 4 days ago. [place] when he lost his balance and fell. He initially did not seek treatment he thought it would improve but noted difficulty with ambulation and increasing pain. He underwent bilateral hip replacements with Dr. Kanu Carter in [place] in 2009. He has not had any issues postoperatively. Orthopaedic Problems/Injuries: L [place] B2 fx Other Injuries: None PMH: per above/EMR PSH: per above/EMR SocHx: -Reports former tobacco use -Social EtOH use - Denies other drug use FamHx: Non-contributory to this patient's acute orthopaedic problem. Allergies: Reviewed in EMR Meds: Reviewed in EMR ROS 12-point review of systems is negative other than what is mentioned above. Physical Exam: Gen: AOx3, NAD HEENT: normocephalic, atraumatic Psych: appropriate mood and affect Resp: nonlabored breathing Cardiac: Extremities WWP, regular rate on peripheral palpation Neuro: moves all extremities spontaneously Skin: no rashes MSK: LLE: - skin intact, no obvious deformity - Tender at site of injury with painful ROM - Motor intact in DF/PF/EHL/FHL - SILT in saph/sural/SPN/DPN distributions - Foot wwp, 2+ DP/PT pulse, brisk cap refill - Compartments soft and compressible, no pain with passive dorsiflexion A full secondary exam was performed and all relevant findings discussed and noted above. Imaging: XR/CT w L [place] B2 fx and slight subsidence of femoral implant when compared to prior XRs. Assessment: Orthopaedic Problems/Injuries: L [place] B2 fx 83M (h/o bilateral CIRILO in 2009) transfer from [place] p/a mGLF. Closed, NVI. XR/CT w slight subsidence of femoral implant when compared to prior XRs. Plan: - Admitted to trauma - Consented and posted to OR schedule for ORIF L femur w Dr. Buenrostro on 01/27 - NPO for upcoming surgery - Clear for OR; appreciate the documentation of clearance by primary team - Please obtain pre-operative labs/studies: T&S, PT/INR, CBC, BMP, CXR, EKG - WB: NWB LLE - Abx: periop - DVT: SCDs, please hold chemoppx for OR - [place]: N This patient was seen and evaluated within 30 minutes of initial consult. Staffed and discussed with attending. Please don't hesitate to reach out with any questions. Francia Girard MD Orthopaedic Surgery PGY-2 [email or web address] Chat preferred Please page [phone] (on-call pager) on weekends and between 6p-7a on weekdays. While admitted, this patient will be followed by the Ortho Trauma Team. Please contact the residents listed below with any questions (available via Telepartner). First call: Jonah Taylor, PGY-1 Second call: Roberto Apodaca PGY-2 Third call: Bette Bethea, PGY-3 Please call the Learnerator pager ([phone]) on weekends and between 6p-7a on week. documented in this encounter [facility] Work Phone: 01-29-2024 Plan of care note Problem: Pain - Adult Goal: Verbalizes/displays adequate comfort level or baseline comfort level Outcome: Progressing Problem: Safety - Adult Goal: Free from fall injury Outcome: Progressing Problem: Discharge Planning Goal: Discharge to home or other facility with appropriate resources Outcome: Progressing Problem: Pain Goal: Takes deep breaths with improved pain control throughout the shift Outcome: Progressing Goal: Turns in bed with improved pain control throughout the shift Outcome: Progressing Goal: Walks with improved pain control throughout the shift Outcome: Progressing Goal: Performs ADL's with improved pain control throughout shift Outcome: Progressing Goal: Participates in PT with improved pain control throughout the shift Outcome: Progressing Problem: Skin Goal: Participates in plan/prevention/treatment measures Outcome: Progressing Goal: Prevent/manage excess moisture Outcome: Progressing Goal: Prevent/minimize sheer/friction injuries Outcome: Progressing Goal: Promote/optimize nutrition Outcome: Progressing Goal: Promote skin healing Outcome: Progressing Problem: Chronic Conditions and Co-morbidities Goal: Patient's chronic conditions and co-morbidity symptoms are monitored and maintained or improved Outcome: Met Problem: Pain Goal: Free from opioid side effects throughout the shift Outcome: Met Goal: Free from acute confusion related to pain meds throughout the shift Outcome: Met The patient's goals for the shift include The clinical goals for the shift include Pt will get up to chair to eat a meal during shift [facility] 01-28-2024 Note Formatting of this n ote might be different from the original. Spoke with patient regarding medication allergies. States he was told he doesn't have a true allergy, that he just took too much and his breathing decreased. States he hadn't tried lower doses of medication. Spoke with pharmacy after conversation with patient. Given patient previously took dilaudid this admission and tolerated, along with the lower cross-reactivity using dilaudid with his documented allergy, pharmacy stated dilaudid 0.2 and 0.4 is ok to use for moderate and severe pain. Lucy Chen PA-C Trauma, Critical Care, Acute Care Surgery Floor: [id number] TSICU: [id number] [facility] Work Phone: 01-28-2024 Hospital Discharge instructions Jonah Taylor MD - 01/28/2024 11:16 AM EDT Follow-Up Instructions You will need to be seen in clinic by Dr. Buenrostro in 2-3 weeks for a post-operative evaluation. This appointment will be in the outpatient surgical specialty services [place], on the [facility]. You will need to call and schedule an appointment, unless there is a previous appointment that appears on your discharge instructions. The direct orthopaedic clinic appointment line phone number is [phone]. Please do not delay in calling to make this appointment. You should also follow up with your primary care provider in 1-2 weeks. Activity Restrictions 1) No driving until further instructed by your orthopaedic physician, which will be addressed at your outpatient appointments. 2) No driving or operating heavy machinery while taking narcotic pain medication. 3) Weight bearing status --> non weight bearing left lower extremity. Wound care instructions: 1) Leave operative dressing in place until postoperative day 7. Then remove and leave incision open to air. Let water run freely over incision when showering, do not scrub. Do not soak in pool or tub. 2) Call if any drainage after 7 days, increased redness/warmth/swelling at incision site, abnormal pain/tenderness of the extremity, abnormal swelling of the extremity that does not respond to elevation, SOB/chest pain. Do not swim in pools or ponds until 3 months after surgery. documented in this encounter [facility] Work Phone: 01-28-2024 Consult note Formatting of th is note might be different from the original. [facility] Department of Orthopaedic Surgery Initial Consult Note HPI: 83M (h/o bilateral CIRILO in 2009) transfer from [place] [facility] about 4 days ago. [place] when he lost his balance and fell. He initially did not seek treatment he thought it would improve but noted difficulty with ambulation and increasing pain. He underwent bilateral hip replacements with Dr. Kanu Carter in [place] in 2009. He has not had any issues postoperatively. Orthopaedic Problems/Injuries: L [place] B2 fx Other Injuries: None PMH: per above/EMR PSH: per above/EMR SocHx: -Reports former tobacco use -Social EtOH use - Denies other drug use FamHx: Non-contributory to this patient's acute orthopaedic problem. Allergies: Reviewed in EMR Meds: Reviewed in EMR ROS 12-point review of systems is negative other than what is mentioned above. Physical Exam: Gen: AOx3, NAD HEENT: normocephalic, atraumatic Psych: appropriate mood and affect Resp: nonlabored breathing Cardiac: Extremities WWP, regular rate on peripheral palpation Neuro: moves all extremities spontaneously Skin: no rashes MSK: LLE: - skin intact, no obvious deformity - Tender at site of injury with painful ROM - Motor intact in DF/PF/EHL/FHL - SILT in saph/sural/SPN/DPN distributions - Foot wwp, 2+ DP/PT pulse, brisk cap refill - Compartments soft and compressible, no pain with passive dorsiflexion A full secondary exam was performed and all relevant findings discussed and noted above. Imaging: XR/CT w L Racine B2 fx and slight subsidence of femoral implant when compared to prior XRs. Assessment: Orthopaedic Problems/Injuries: L Racine B2 fx 83M (h/o bilateral CIRILO in 2009) [place] [facility] [place] [facility] Closed, NVI. XR/CT w slight subsidence of femoral implant when compared to prior XRs. Plan: - Admitted to trauma - Consented and posted to OR schedule for ORIF L femur w Dr. Buenrostro on 01/27 - NPO for upcoming surgery - Clear for OR; appreciate the documentation of clearance by primary team - Please obtain pre-operative labs/studies: T&S, PT/INR, CBC, BMP, CXR, EKG - WB: NWB LLE - Abx: periop - DVT: SCDs, please hold chemoppx for OR - [place]: N This patient was seen and evaluated within 30 minutes of initial consult. Staffed and discussed with attending. Please don't hesitate to reach out with any questions. Francia Girard MD Orthopaedic Surgery PGY-2 [email or web address] Chat preferred Please page [phone] (on-call pager) on weekends and between 6p-7a on weekdays. While admitted, this patient will be followed by the Ortho Trauma Team. Please contact the residents listed below with any questions (available via [email or web address] Chat). First call: Jonah Taylor, PGY-1 Second call: Roberto Apodaca, PGY-2 Third call: Bette Bethea, PGY-3 Please call the ortho pager ([phone]) on weekends and between 6p-7a on weekdays. [facility] Work Phone: 01-28-2024 Note Formatting of this n ote is different from the original. Open Reduction Internal Fixation Femur (L) Operative Note Date: 01/28/2024 OR Location: [facility] OR Name: Patrice Joel, : 1940, Age: 83 y.o., , Sex: male Diagnosis Pre-op Diagnosis * Periprosthetic fracture of proximal end of femur [M97.8XXA, Z96.649] Post-op Diagnosis * Periprosthetic fracture of proximal end of femur [M97.8XXA, Z96.649] Procedures Open Reduction Internal Fixation Femur 47656 - GA OPTX FEM SHFT FX W/PLATE/SCREWS W/WO CERCLAGE Surgeons * Frederic Buenrostro - Primary Resident/Fellow/Other Php Consultant: Surgeons and Role: * Toya Mayfield PA-C - Resident - Assisting * Jonah Taylor MD - Resident - Assisting * Samuel Gates DO - Resident - Assisting Procedure Summary Anesthesia: General ASA: III Anesthesia Staff: Anesthesiologist: Abilio Hernández DO C-AA: YANCI Ruth; YANCI Calhoun Estimated Blood Loss: 500mL Intra-op Medications: Administrations occurring from 0655 to 0945 on 01/28/24: Medication Name Total Dose vancomycin (Vancocin) vial for injection 1 g tobramycin (Nebcin) injection 1,200 mg sodium chloride 0.9 % irrigation solution 3,000 mL polyethylene glycol (Glycolax, Miralax) packet 17 g Cannot be calculated Anesthesia Record Intraprocedure I/O Totals Intake electrolyte-A (Plasmalyte-A) 1000.00 mL Tranexamic Acid 0.00 mL The total shown is the total volume documented since Anesthesia Start was filed. Total Intake 1000 mL Output Urine 650 mL Total Output 650 mL Net Net Volume 350 mL Specimen: No specimens collected Staff: Scrub Person: Jennifer Scrub Person: Braulio Spring Up Supervisor: Megan Spring Up Supervisor: Fernanda Hilliard Spring Up Supervisor: Jed Drains and/or Catheters: Closed/Suction Drain 1 Left Thigh 10 Fr. (Active) Urethral Catheter Double-lumen;Non-latex 16 Fr. (Active) Tourniquet Times: Implants: Implants Type Name Action Serial No. CONNECTING SCREW F/VAVPPFX GT RING ATTCHMT PLATE Implanted 8 HOLE PPFX PLATE Implanted Screw CABLE W/CRIMP, 1.7 X 750MM, SS, STERILE - [id number] Implanted GT ATTACH PLATE Implanted Screw SCREW, CORTICAL, SELF-TAPPING, 4.5 X 38 MM, STAINLESS STEEL - [id number] Implanted Screw SCREW, LOCK 5.[address] T25 - [id number] Implanted Screw CABLE W/CRIMP, 1.7 X 750MM, SS, STERILE - [id number] Implanted Screw PIN 4.5 CERCLAGE POSITIONING - [id number] Implanted Screw SCREW, VARIABLE ANGLE, 50MM, LOCKING, ST - [id number] Implanted Screw SCREW, VARIABLE ANGLE, 46MM, LOCKING, ST - [id number] Implanted Screw SCREW, VARIABLE ANGLE, 44MM, LOCKING, ST - [id number] Implanted Screw SCREW, VARIABLE ANGLE, 40MM, LOCKING, ST - [id number] Implanted Screw SCREW, VARIABLE ANGLE, 36MM, LOCKING, ST - [id number] Implanted Screw SCREW, VARIABLE ANGLE, 32MM, LOCKING, ST - [id number] Implanted Screw SCREW, VARABLE ANGLE LKG, SELF TAP, 3.5 X 38MM - [id number] Implanted Findings: Left periprosthetic femur fracture with stable stem Indications: Patrice Joel is an 83 y.o. male who is having surgery for Periprosthetic fracture of proximal end of femur [M97.8XXA, Z96.649]. The patient was seen in the preoperative area. The risks, benefits, complications, treatment options, non-operative alternatives, expected recovery and outcomes were discussed with the patient. The possibilities of reaction to medication, pulmonary aspiration, injury to surrounding structures, bleeding, recurrent infection, the need for additional procedures, failure to diagnose a condition, and creating a complication requiring transfusion or operation were discussed with the patient. The patient concurred with the proposed plan, giving informed consent. The site of surgery was properly noted/marked if necessary per policy. The patient has been actively warmed in preoperative area. Preoperative antibiotics have been ordered and given within 1 hours of incision. Venous thrombosis prophylaxis have been ordered including unilateral sequential compression device Procedure Details: Patient was brought back to the operating room and initially placed supine on the operating room table all bony prominences well-padded. Surgical timeout was performed confirming the patient by name, medical record number, date of , surgery to be performed, surgical site and laterality, and patient allergies. All in attendance were in agreement. Anesthesia was then induced by the anesthesia team per protocol. The patient was was then transition to a lateral decubitus position with the left side up stabilized by the beanbag. All bony prominences well-padded. The left lower extremities then prepped and draped in the standard orthopedic fashion. Patient had a prior posterior approach for their total hip that was performed in 2009, the surgical incision was then used from the tip of the greater trochanter to the mid femur. This performed sharply with a knife. Using Bovie electrocautery the subcutaneous tissue was dissected to the level of the IT band as well as achieve hemostasis. The IT band was then split in line with the femur through the entirety of our incision. We then detached vastus lateralis at the vastus ridge in an L-shaped fashion and split the fascia of the vastus leaving a cuff of tissue to repair at the end longitudinally. The vastus musculature was dissected off of the fascia, with perforating vessels coagulated while dissecting. The muscle was then elevated off of the femur using a au elevator. We then had excellent exposure from the tip of the greater trochanter to the mid femur. Our fracture was visualized and bone ends were cleaned with irrigation, 15 blade, elevator, and suction. At this point we assessed the stability of the femoral stem. The greater trochanter piece was clearly mobile, but the stem remained intact to the distal shaft with any manipulation of the femur including axial traction as well as rotation. At this point we made the decision to continue with ORIF rather than revision hip placement, as we felt the prior femoral stem was quite stable. Using a large lobster-claw clamp the fracture was reduced. We placed a large periarticular proximal femur plate in appropriate position. The plate was held in place with clamps. Distally, a bicortical cortical screw was drilled measured and placed to suck the plate to bone. Proximally, to secure the greater trochanter fragment a cable was passed around the calcar and around the plate and tensioned appropriately. A second cable was passed below the level of the lesser trochanter and compressed our fracture further after being tensioned appropriately. We then filled the proximal locking cluster in the greater trochanter after drilled and measuring. Distally, an additional 2 bicortical cortical screws were drilled measured and placed. And 2 bicortical locking screws were drilled measured and placed. We were able to place 2 locking screws bicortically around the stem near the fracture site. Orthogonal imaging demonstrated appropriate hardware placement and adequately reduced fracture. Our attention then turned to closure. The wound was copiously irrigated with several liters of normal saline. Vancomycin tobramycin powder were placed in the wound. A 10 Egyptian round drain was then placed below the vastus musculature and out proximal and anterior to our incision. The fascia of the vastus was then closed with #1 Vicryl in running fashion. The insertion of the vastus was repaired with #1 Vicryl in [id number] fashion. The IT band was closed in #1 Vicryl in running fashion. Subcutaneous tissue closed with 2-0 Vicryl in interrupted fashion. Skin closed with marlin. We ensured that the drain was mobile and not inadvertently sutured in. A Mepilex dressing was then placed over the wound as well as a Trudy bandage. Patient was then awoken by the anesthesia team, transferred to the hospital bed, and brought to PACU in stable condition without complication. Complications: None; patient tolerated the procedure well. Disposition: PACU - hemodynamically stable. Condition: stable Attending Attestation: I was present and scrubbed for the entire procedure. Frederic Buenrostro [facility] Work Phone: 01-28-2024 Note Formatting of this n ote is different from the original. Date: 01/28/2024 OR Location: [facility] OR Name: Patrice Joel, : 1940, Age: 83 y.o., , Sex: male Diagnosis Pre-op Diagnosis * Periprosthetic fracture of proximal end of femur [M97.8XXA, Z96.649] Post-op Diagnosis * Periprosthetic fracture of proximal end of femur [M97.8XXA, Z96.649] Procedures Open Reduction Internal Fixation Femur 43166 - GA OPTX FEM SHFT FX W/PLATE/SCREWS W/WO CERCLAGE Surgeons * Frederic Buenrostro - Primary Resident/Fellow/Other Php Consultant: Surgeons and Role: * Toya Mayfield PA-C - Resident - Assisting * Jonah Taylor MD - Resident - Assisting * Samuel Gates DO - Resident - Assisting Procedure Summary Anesthesia: General ASA: III Anesthesia Staff: Anesthesiologist: Abilio Hernández DO C-AA: YANCI Ruth; YANCI Calhoun Estimated Blood Loss: 500mL Intra-op Medications: Administrations occurring from 0655 to 0945 on 01/28/24: Medication Name Total Dose vancomycin (Vancocin) vial for injection 1 g tobramycin (Nebcin) injection 1,200 mg sodium chloride 0.9 % irrigation solution 3,000 mL polyethylene glycol (Glycolax, Miralax) packet 17 g Cannot be calculated Anesthesia Record Intraprocedure I/O Totals Intake electrolyte-A (Plasmalyte-A) 1000.00 mL Tranexamic Acid 0.00 mL The total shown is the total volume documented since Anesthesia Start was filed. Total Intake 1000 mL Output Urine 650 mL Total Output 650 mL Net Net Volume 350 mL Specimen: No specimens collected Staff: Scrub Person: Jennifer Scrub Person: Braulio Spring Up Supervisor: Megan Spring Up Supervisor: Fernanda Hilliard Spring Up Supervisor: Jed Findings: L periprosthetic femur fracture, s/p ORIF Complications: None; patient tolerated the procedure well. Disposition: PACU - hemodynamically stable. Condition: stable Specimens Collected: No specimens collected Attending Attestation: I was present and scrubbed for the love portions of the procedure. Frederic Buenrostro [facility] Work Phone: 01-28-2024 History and physical note [facility] Department of Orthopaedic Surgery Surgical History & Physical <30 Days Reason for Surgery: left periprosthetic femur fx Planned Procedure: ORIF L femur History & Physical Reviewed: I have reviewed the History and Physical within 30 days dated 01/26. Relevant findings and updates are noted below: No significant changes. Home medications were reviewed with significant updates noted below: No significant changes. ERAS patient?: No COVID-19 Risk Consent: Surgeon has reviewed the love risks related to jen COVID-19 and subsequent sequelae. 01/28/24 at 4:18 AM - Francia Girard MD [facility] Work Phone: 01-28-2024 History and physical note [facility] Department of Orthopaedic Surgery Surgical History & Physical <30 Days Reason for Surgery: left periprosthetic femur fx Planned Procedure: ORIF L femur History & Physical Reviewed: I have reviewed the History and Physical within 30 days dated 01/26. Relevant findings and updates are noted below: No significant changes. Home medications were reviewed with significant updates noted below: No significant changes. ERAS patient?: No COVID-19 Risk Consent: Surgeon has reviewed the love risks related to jen COVID-19 and subsequent sequelae. 01/28/24 at 4:18 AM - Francia Girard MD [facility] TRAUMA SERVICE - HISTORY AND PHYSICAL / CONSULT Patient Name: Patrice Joel Admit Date: [id number] : 1940 AGE: 83 y.o. GENDER: male MECHANISM OF INJURY / CHIEF COMPLAINT: 83 male presenting to [place] 2 days following a mGLF. Found to have a L periprosthetic femur fracture. Transferred to [facility] for further orthopedic workup. Of note patient is holistic and does not see doctors. LOC (yes/no?): no Anticoagulant / Anti-platelet Rx? (for what dx?): no Referring Facility Name (N/A for scene EMR run): [place] INJURIES: Non-displaced L periprosthetic femur fracture OTHER MEDICAL PROBLEMS: None INCIDENTAL FINDINGS: None ADMISSION PLAN OF CARE: NPO after midnight mIVF while NPO Clear for OR with ortho tomorrow Admit to trauma floor Pt staffed with Dr. Kristi Mendez PA-C Trauma Surgery PAST MEDICAL HISTORY: PMH: None, patient is holistic and does not see doctors No past medical history on file. PSH: L hip total arthroplasty No past surgical history on file. FH: No family history on file. SOCIAL HISTORY: Smoking: Denies Social History Tobacco Use Smoking Status Not on file Smokeless Tobacco Not on file Alcohol: Endorses 1/2 glass of wine per day Social History Substance and Sexual Activity Alcohol Use Not on file Drug use: denies MEDICATIONS: Prior to Admission medications Not on File ALLERGIES: Allergies Allergen Reactions Codeine Anaphylaxis Morphine Anaphylaxis REVIEW OF SYSTEMS: Review of Systems Musculoskeletal: L leg pain All other systems reviewed and are negative. PHYSICAL EXAM: PRIMARY SURVEY: Primary Survey SECONDARY SURVEY/PHYSICAL EXAM: Physical Exam Constitutional: Appearance: Normal appearance. HENT: Head: Normocephalic and atraumatic. Right Ear: External ear normal. Left Ear: External ear normal. Nose: Nose normal. Mouth/Throat: Mouth: Mucous membranes are moist. Pharynx: Oropharynx is clear. Eyes: Extraocular Movements: Extraocular movements intact. Pupils: Pupils are equal, round, and reactive to light. Cardiovascular: Rate and Rhythm: Normal rate and regular rhythm. Pulses: Normal pulses. Heart sounds: Normal heart sounds. Pulmonary: Effort: Pulmonary effort is normal. Breath sounds: Normal breath sounds. Abdominal: General: Abdomen is flat. Bowel sounds are normal. Palpations: Abdomen is soft. Musculoskeletal: General: Tenderness and signs of injury present. Normal range of motion. Cervical back: Normal range of motion. Right lower leg: Edema present. Left lower leg: Edema present. Comments: Left leg tenderness around hip and thigh BL LE swelling with 1+ pitting edema Skin: General: Skin is warm and dry. Capillary Refill: Capillary refill takes less than 2 seconds. Neurological: General: No focal deficit present. Mental Status: He is alert and oriented to person, place, and time. Psychiatric: Mood and Affect: Mood normal. IMAGING SUMMARY: (summary of findings, not a copy of dictation) CT L-Spine: Neg CT Abd/Pelvis: pend CXR: consolidation in RLL XR L hip: non-displaced L periprosthetic femur fx LABS: Results for orders placed or performed during the hospital encounter of 01/27/24 (from the past 24 hour(s)) CBC and Auto Differential Result Value Ref Range WBC 7.9 4.4 - 11.3 x10*3/uL nRBC 0.0 0.0 - 0.0 /100 WBCs RBC 4.12 (L) 4.50 - 5.90 x10*6/uL Hemoglobin 12.3 (L) 13.5 - 17.5 g/dL Hematocrit 36.5 (L) 41.0 - 52.0 % MCV 89 80 - 100 fL MCH 29.9 26.0 - 34.0 pg MCHC 33.7 32.0 - 36.0 g/dL RDW 13.4 11.5 - 14.5 % Platelets 182 150 - 450 x10*3/uL Neutrophils % 65.5 40.0 - 80.0 % Immature Granulocytes %, Automated 0.4 0.0 - 0.9 % Lymphocytes % 12.3 13.0 - 44.0 % Monocytes % 13.9 2.0 - 10.0 % Eosinophils % 7.3 0.0 - 6.0 % Basophils % 0.6 0.0 - 2.0 % Neutrophils Absolute 5.15 1.60 - 5.50 x10*3/uL Immature Granulocytes Absolute, Automated 0.03 0.00 - 0.50 x10*3/uL Lymphocytes Absolute 0.97 0.80 - 3.00 x10*3/uL Monocytes Absolute 1.09 (H) 0.05 - 0.80 x10*3/uL Eosinophils Absolute 0.57 (H) 0.00 - 0.40 x10*3/uL Basophils Absolute 0.05 0.00 - 0.10 x10*3/uL Comprehensive metabolic panel Result Value Ref Range Glucose 95 74 - 99 mg/dL Sodium 133 (L) 136 - 145 mmol/L Potassium 4.5 3.5 - 5.3 mmol/L Chloride 101 98 - 107 mmol/L Bicarbonate 27 21 - 32 mmol/L Anion Gap 10 10 - 20 mmol/L Urea Nitrogen 15 6 - 23 mg/dL Creatinine 0.71 0.50 - 1.30 mg/dL eGFR 90 >60 mL/min/1.73m*2 Calcium 8.6 8.6 - 10.3 mg/dL Albumin 3.8 3.4 - 5.0 g/dL Alkaline Phosphatase 43 33 - 136 U/L Total Protein 6.7 6.4 - 8.2 g/dL AST 17 9 - 39 U/L Bilirubin, Total 0.8 0.0 - 1.2 mg/dL ALT 12 10 - 52 U/L Protime-INR Result Value Ref Range Protime 12.6 9.8 - 12.8 seconds INR 1.1 0.9 - 1.1 I have reviewed all laboratory and imaging results ordered/pertinent for this encounter. documented in this encounter [facility] Work Phone: 01-28-2024 Plan of care note The patient's goals for the shift include The clinical goals for the shift include Pt will remain safe and pain controlled during night. Pt admitted to LT6 after fall and left femur broken. MNNPO for surgery this morning. Pain controlled with tylenol and robaxin. Complained of heartburn and tums administered. $ eye skin assessment done with FLAKITA Garcia. Call light in reach. Phyllis Soto, RN [facility] Work Phone: 01-28-2024 Hospital Note Formatting of t his note might be different from the original. 83 y/o male with PMH htn and bilateral hip replacements (2009) presenting to [place] 2 days following a mGLF. Negative LOC, headstrike, or blood thinners. Found to have a L periprosthetic femur fracture. Transferred to [facility] for further orthopedic workup. Of note patient is holistic and does not see doctors. Patient went to OR with orthopedics on 01/27 for ORIF L femur. Will remain NWB LLE until outpatient follow up on 02/13. Due to anaphylactic allergy listed to morphine/codeine, pain control primarily controlled with non opioids, patient tolerated well. PT/OT recommended moderate intensity. Will be discharged to [facility] [place]. [facility] Work Phone: 01-27-2024 History and physical note [facility] TRAUMA SERVICE - HISTORY AND PHYSICAL / CONSULT Patient Name: Patrice Joel Admit Date: [id number] : 1940 AGE: 83 y.o. GENDER: male MECHANISM OF INJURY / CHIEF COMPLAINT: 83 male presenting to [place] 2 days following a mGLF. Found to have a L periprosthetic femur fracture. Transferred to [facility] for further orthopedic workup. Of note patient is holistic and does not see doctors. LOC (yes/no?): no Anticoagulant / Anti-platelet Rx? (for what dx?): no Referring Facility Name (N/A for scene EMR run): [place] INJURIES: Non-displaced L periprosthetic femur fracture OTHER MEDICAL PROBLEMS: None INCIDENTAL FINDINGS: None ADMISSION PLAN OF CARE: NPO after midnight mIVF while NPO Clear for OR with ortho tomorrow Admit to trauma floor Pt staffed with Dr. Kristi Mendez PA-C Trauma Surgery PAST MEDICAL HISTORY: PMH: None, patient is holistic and does not see doctors No past medical history on file. PSH: L hip total arthroplasty No past surgical history on file. FH: No family history on file. SOCIAL HISTORY: Smoking: Denies Social History Tobacco Use Smoking Status Not on file Smokeless Tobacco Not on file Alcohol: Endorses 1/2 glass of wine per day Social History Substance and Sexual Activity Alcohol Use Not on file Drug use: denies MEDICATIONS: Prior to Admission medications Not on File ALLERGIES: Allergies Allergen Reactions Codeine Anaphylaxis Morphine Anaphylaxis REVIEW OF SYSTEMS: Review of Systems Musculoskeletal: L leg pain All other systems reviewed and are negative. PHYSICAL EXAM: PRIMARY SURVEY: Primary Survey SECONDARY SURVEY/PHYSICAL EXAM: Physical Exam Constitutional: Appearance: Normal appearance. HENT: Head: Normocephalic and atraumatic. Right Ear: External ear normal. Left Ear: External ear normal. Nose: Nose normal. Mouth/Throat: Mouth: Mucous membranes are moist. Pharynx: Oropharynx is clear. Eyes: Extraocular Movements: Extraocular movements intact. Pupils: Pupils are equal, round, and reactive to light. Cardiovascular: Rate and Rhythm: Normal rate and regular rhythm. Pulses: Normal pulses. Heart sounds: Normal heart sounds. Pulmonary: Effort: Pulmonary effort is normal. Breath sounds: Normal breath sounds. Abdominal: General: Abdomen is flat. Bowel sounds are normal. Palpations: Abdomen is soft. Musculoskeletal: General: Tenderness and signs of injury present. Normal range of motion. Cervical back: Normal range of motion. Right lower leg: Edema present. Left lower leg: Edema present. Comments: Left leg tenderness around hip and thigh BL LE swelling with 1+ pitting edema Skin: General: Skin is warm and dry. Capillary Refill: Capillary refill takes less than 2 seconds. Neurological: General: No focal deficit present. Mental Status: He is alert and oriented to person, place, and time. Psychiatric: Mood and Affect: Mood normal. IMAGING SUMMARY: (summary of findings, not a copy of dictation) CT L-Spine: Neg CT Abd/Pelvis: pend CXR: consolidation in RLL XR L hip: non-displaced L periprosthetic femur fx LABS: Results for orders placed or performed during the hospital encounter of 01/27/24 (from the past 24 hour(s)) CBC and Auto Differential Result Value Ref Range WBC 7.9 4.4 - 11.3 x10*3/uL nRBC 0.0 0.0 - 0.0 /100 WBCs RBC 4.12 (L) 4.50 - 5.90 x10*6/uL Hemoglobin 12.3 (L) 13.5 - 17.5 g/dL Hematocrit 36.5 (L) 41.0 - 52.0 % MCV 89 80 - 100 fL MCH 29.9 26.0 - 34.0 pg MCHC 33.7 32.0 - 36.0 g/dL RDW 13.4 11.5 - 14.5 % Platelets 182 150 - 450 x10*3/uL Neutrophils % 65.5 40.0 - 80.0 % Immature Granulocytes %, Automated 0.4 0.0 - 0.9 % Lymphocytes % 12.3 13.0 - 44.0 % Monocytes % 13.9 2.0 - 10.0 % Eosinophils % 7.3 0.0 - 6.0 % Basophils % 0.6 0.0 - 2.0 % Neutrophils Absolute 5.15 1.60 - 5.50 x10*3/uL Immature Granulocytes Absolute, Automated 0.03 0.00 - 0.50 x10*3/uL Lymphocytes Absolute 0.97 0.80 - 3.00 x10*3/uL Monocytes Absolute 1.09 (H) 0.05 - 0.80 x10*3/uL Eosinophils Absolute 0.57 (H) 0.00 - 0.40 x10*3/uL Basophils Absolute 0.05 0.00 - 0.10 x10*3/uL Comprehensive metabolic panel Result Value Ref Range Glucose 95 74 - 99 mg/dL Sodium 133 (L) 136 - 145 mmol/L Potassium 4.5 3.5 - 5.3 mmol/L Chloride 101 98 - 107 mmol/L Bicarbonate 27 21 - 32 mmol/L Anion Gap 10 10 - 20 mmol/L Urea Nitrogen 15 6 - 23 mg/dL Creatinine 0.71 0.50 - 1.30 mg/dL eGFR 90 >60 mL/min/1.73m*2 Calcium 8.6 8.6 - 10.3 mg/dL Albumin 3.8 3.4 - 5.0 g/dL Alkaline Phosphatase 43 33 - 136 U/L Total Protein 6.7 6.4 - 8.2 g/dL AST 17 9 - 39 U/L Bilirubin, Total 0.8 0.0 - 1.2 mg/dL ALT 12 10 - 52 U/L Protime-INR Result Value Ref Range Protime 12.6 9.8 - 12.8 seconds INR 1.1 0.9 - 1.1 I have reviewed all laboratory and imaging results ordered/pertinent for this encounter. [facility] Work Phone: 01-27-2024 Emergency department Note Limitations to History: None HPI: Patrice Joel is a 83 y.o. who presents to the ED with L periprosethic femur fracture from [place]. He was standing on wooden pallet and it broke and he fell down. He landed right on his left hip. He was having worsening pain it was difficult for him to walk at home so went to [place] where he was found to have a left periprosthetic femur fracture. Complains of L4-L5 pain that is chronic for him but this is not new or worse. He denies hitting his head he denies blood thinner use. VS: BP 99/52 Pulse 67 Resp 16 Ht 1.854 m (6' 1) Wt 89.8 kg (198 lb) SpO2 96% BMI 26.12 kg/m Physical Exam: Gen: Alert, NAD Head/Neck: NCAT, neck w/ FROM Eyes: EOMI, PERRL, anicteric sclerae, noninjected conjunctivae Mouth: MMM, no OP lesions noted Heart: RRR no MRG Lungs: CTA b/l no RRW, no increased work of breathing Abdomen: soft, NT, ND, no HSM, no palpable masses Musculoskeletal: Pain with palpation of the L hip Extremities: WWP, no c/c/e, cap refill <2sec Neurologic: Alert, symmetrical facies, phonates clearly, moves all extremities equally, responsive to touch, ambulates normally Skin: no rashes noted Psychological: calm, no SI/HI Medical Decision Making: Patient presents as a transfer for left hip fracture. Rest of his traumatic workup is unremarkable. Patient had a fall 4 days ago and has no other symptoms so I did not card scan him. Patient will be admitted to the trauma service with Ortho consulting for operative repair. Preop labs were sent. ED Course as of 01/27/242229Jan 27, [id number] EKG interpreted by me at 1933 shows a ventricular rate of 67, normal sinus rhythm, normal axis intervals ST segments and T waves [RG] ED Course User Index [RG] Jaden Gonzalez MD Diagnoses as of 01/27/242229 Closed fracture of left femur, unspecified fracture morphology, unspecified portion of femur, initial encounter (Multi) Medications - No data to display Discussion of Management with Other Providers: I discussed the patient/results with: Trauma and Ortho Jaden Gonzalez MD 01/27/242229 Patient comes in as a transfer from [facility] here for an orthopedic consult; he fell on Saturday after tripping over a tree stump and landing on his L hip and elbow; denies LOC, denies hitting his head, denies anticoagulation use; waited until today to go to [place], where they found him to have a L hip fx; patient was given 50mcg of Fentanyl prior to leaving [place], and denies pain on arrival States his only PMHx is a heart murmur, which he follows his PCP for and bilateral hip replacements in 2009 Arrives A&Ox4, no respiratory distress noted while on RA, PERRLA documented in this encounter [facility] Work Phone: 01-27-2024 Emergency department Triage note Patient comes in as a transfer from [facility] here for an orthopedic consult; he fell on Saturday after tripping over a tree stump and landing on his L hip and elbow; denies LOC, denies hitting his head, denies anticoagulation use; waited until today to go to [place], where they found him to have a L hip fx; patient was given 50mcg of Fentanyl prior to leaving [place], and denies pain on arrival States his only PMHx is a heart murmur, which he follows his PCP for and bilateral hip replacements in 2009 Arrives A&Ox4, no respiratory distress noted while on RA DAVEMERCEDEZ [facility] 01-27-2024 Physician Emergency department Note Limitations to History: None HPI: Patrice Joel is a 83 y.o. who presents to the ED with L periprosethic femur fracture from [place]. He was standing on wooden pallet and it broke and he fell down. He landed right on his left hip. He was having worsening pain it was difficult for him to walk at home so went to [place] where he was found to have a left periprosthetic femur fracture. Complains of L4-L5 pain that is chronic for him but this is not new or worse. He denies hitting his head he denies blood thinner use. VS: BP 99/52 Pulse 67 Resp 16 Ht 1.854 m (6' 1) Wt 89.8 kg (198 lb) SpO2 96% BMI 26.12 kg/m Physical Exam: Gen: Alert, NAD Head/Neck: NCAT, neck w/ FROM Eyes: EOMI, PERRL, anicteric sclerae, noninjected conjunctivae Mouth: MMM, no OP lesions noted Heart: RRR no MRG Lungs: CTA b/l no RRW, no increased work of breathing Abdomen: soft, NT, ND, no HSM, no palpable masses Musculoskeletal: Pain with palpation of the L hip Extremities: WWP, no c/c/e, cap refill <2sec Neurologic: Alert, symmetrical facies, phonates clearly, moves all extremities equally, responsive to touch, ambulates normally Skin: no rashes noted Psychological: calm, no SI/HI Medical Decision Making: Patient presents as a transfer for left hip fracture. Rest of his traumatic workup is unremarkable. Patient had a fall 4 days ago and has no other symptoms so I did not card scan him. Patient will be admitted to the trauma service with Ortho consulting for operative repair. Preop labs were sent. ED Course as of 01/27/242229Jan 27, [id number] EKG interpreted by me at 1933 shows a ventricular rate of 67, normal sinus rhythm, normal axis intervals ST segments and T waves [RG] ED Course User Index [RG] Jaden Gonzalez MD Diagnoses as of 01/27/242229 Closed fracture of left femur, unspecified fracture morphology, unspecified portion of femur, initial encounter (Multi) Medications - No data to display Discussion of Management with Other Providers: I discussed the patient/results with: Trauma and Ortho Jaden Gonzalez MD 01/27/242229 [facility] Work Phone: 01-08-2024 Telephone encounter Note Appointment noted. [facility] Work Phone: 01-08-2024 Miscellaneous Notes Appointment noted. 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 Has had trouble with drooling since. Will have trouble swallowing if he is eating too fast, will regurgitate. Ongoing since April. R: No appointments with Dr. Fallon until February, scheduled with Esme Denton NP 01/15 at 10:40a. AWV with Dr. Fallon scheduled 03/11 at 1:40p. Patient states he has medicare A/B and a new supplement. Will bring insurance information to appointment. Patient understands care advice. No further needs at this time. Patient instructed to call back with new or worsening symptoms. 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 Has had trouble with drooling since. Will have trouble swallowing if he is eating too fast, will regurgitate. Ongoing since April. R: No appointments with Dr. Fallon until February, scheduled with Esme Denton NP 01/15 at 10:40a. AWV with Dr. Fallon scheduled 03/11 at 1:40p. Patient states he has medicare A/B and a new supplement. Will bring insurance information to appointment. Patient understands care advice. No further needs at this time. Patient instructed to call back with new or worsening symptoms. Reason for Disposition Swallowing difficulty is a chronic symptom (recurrent or ongoing AND present > 4 weeks) All other mouth symptoms (Exceptions: Dry mouth from not drinking enough liquids, chapped lips.) Protocols used: Swallowing Afikyhewxv-[id number]-ND, Mouth Fvsljyaj-QXXVS-LB [facility] 01-02-2024 Instructions Toya Jacobsen PA-C - 01/02/2024 11:18 AM EDT ASSESSMENT/PLAN: 1. Bilateral impacted cerumen No q-tip or other FB noted in the ears - AMBULATORY EAR LAVAGE/IRRIGATION Wax removed by water irrigation by the [facility] Tolerated well Call PCP if sx worsen or no better. If symptoms worsen, or new symptoms develop go to ER. If you have worsening of breathing or breathing changes- go to ER. If you have persistent fever unrelieved by Tylenol/Motrin- go to the ER. Discussed all red flag symptoms and reasons to go to ER No further questions. Follow up as needed. The patient verbalizes understanding and is in agreement with plan of care. Barriers to learning: none. Toya Jacobsen PA-C documented in this encounter [facility] 01-02-2024 Note HNO ID: [id number] Author: TOYA JACOBSEN PA-C Service: ? Author Type: Physician Php Consultant Type: Progress Notes Filed: 01/02/2024 11:35 Note Text: 01/02/2024 Patient presents with: Piece of Q-tip in right ear: PT was taking a shower and cleaned ears with a q-tip, pt states that a q-tip broke off in right ear, SUBJECTIVE: This is a 83 year old that is here today for concern for Q-tip head stuck in his right ear. He cleaned his ears with q-tips, and then noted the head of the q-tipwas missing. He is concerned the tip is in the ear canal. No dizziness, vertigo, changes in hearing, or drainage. He denies any recent swimming or use of q-tips, ear plugs, or ear buds. No recent sinus, allergy or URI symptoms. No cough, n/v/d, ALVARADO, or rash. Denies fever, chills, sweats, or fatigue. Patient denies wheezing, shortness of breath, increased WOB, or chest pain. No other URI symptoms. No other sick symptoms. Pain on scale of 0-10 with 0 being no pain and 10 being greatest pain: 0 Nothing makes the symptoms better. Nothing makes them worse. Self-treatment:. none The severity is mild and the symptoms are not improving. The patient did not have a similar problem in the last 3 months. The patient did not take any antibiotics in the last 3 months. Barriers to learning: none. Reviewed meds, OTCs, herbals or supplements. Reviewed allergies, medications, social history, and past medical history. PAST MEDICAL HISTORY No date: Anemia No date: Benign prostate hyperplasia No date: Black stool No date: Cataract No date: Diverticulosis No date: Dysphagia No date: Esophagitis No date: FHx: colon cancer Comment: Brother No date: Gastritis with bleeding No date: Hiatal hernia No date: History of colon polyps No date: Rectal bleeding No date: Rheumatoid arthritis(714.0) ALLERGIES Morphine MEDICATIONS Current Outpatient Medications Medication Sig metoprolol succinate ER (TOPROL XL) 100 mg Take by mouth. lisinopril (ZESTRIL) 20 mg tablet Take by mouth q 24 HR. ZINC ORAL Take by mouth. cholecalciferol, vitamin D3, (VITAMIN D3 ORAL) Take by mouth. multivit-min/ferrous fumarate (MULTI VITAMIN ORAL) Take by mouth. Pt takes vitamins through a smoothie, aspirin, enteric coated (ASPIRIN, ENTERIC COATED) 81 mg EC tablet aspirin 81 mg tablet aspirin, enteric coated (ASPIRIN, ENTERIC COATED) 81 mg EC tablet Take by mouth. (Patient not taking: Reported on 09/26/2022) Cyanocobalamin 250 mcg tab Vitamin B-12 25 mcg tablet Vitamin E Acetate, Bulk, 50 % powd Take by mouth. (Patient not taking: Reported on 09/26/2022) Echinacea purpurea,angustif xt (ECHINACEA PURP XT,HUMZA RT EXT) 125 mg cap echinacea 125 mg capsule No current facility-administered medications for this visit. Medications and allergies reviewed by this provider. SOCIAL HISTORY Social History Tobacco Use Smoking status: Former Current packs/day: 0.00 Average packs/day: 3.0 packs/day for 15.0 years (45.0 ttl pk-yrs) Types: Cigarettes Start date: 12/09/1974 Quit date: 12/09/1989 Years since quittin.0 Smokeless tobacco: Never Substance Use Topics Alcohol use: Yes Comment: Occasionally Drug use: Never REVIEW OF SYSTEMS Review of Systems ROS: constitutional-neg, HENT-ear FB, wax, Eyes- neg, heart-neg, respiratory-neg, skin-neg, lymph-neg, Allergy- neg, neuro-neg, - All systems neg except as noted above in HPI. OBJECTIVE: Pulse (!) 56 Temp 36.3 ?C (97.4 ?F) (Oral) Resp 18 Ht 180.3 cm (5' 11) Wt 93.6 kg (206 lb 3.9 oz) SpO2 100% BMI 28.76 kg/m? . Vital signs reviewed by this provider. Physical Exam Vitals reviewed. Constitutional: General: He is not in acute distress. Appearance: Normal appearance. He is normal weight. He is not ill-appearing, toxic-appearing or diaphoretic. HENT: Head: Normocephalic and atraumatic. Right Ear: There is impacted cerumen. No foreign body. Left Ear: There is impacted cerumen. No foreign body. Ears: Comments: -Ears: No FB noted to the right or left ear canals. Bilateral ears- bilateral cerumen impaction Wax removed with water irrigation by the [place] [facility] Tolerated well Ear exam post wax removal: Right and left ears- TM pearly menendez with light reflex. Ear canal not red or swollen. No tragus tenderness to pumping. No pain with manipulation of the auricle. No mastoid or preauricular tenderness, edema, or erythema. Lymphadenopathy: Head: Right side of head: No preauricular or posterior auricular adenopathy. Left side of head: No preauricular or posterior auricular adenopathy. Cervical: No cervical adenopathy. Skin: General: Skin is warm. Capillary Refill: Capillary refill takes less than 2 seconds. Findings: No erythema or rash. Neurological: General: No focal deficit present. Mental Status: He is alert and oriented to person, place, and time. Ambulatory Ear Lavage Pre-treatment: No pre-treatment Treatment (more content not included)... [facility] 01-02-2024 History of Present illness Narrative 01/02/2024 Patient presents with: Piece of Q-tip in right ear: PT was taking a shower and cleaned ears with a q-tip, pt states that a q-tip broke off in right ear, SUBJECTIVE: This is a 83 year old that is here today for concern for Q-tip head stuck in his right ear. He cleaned his ears with q-tips, and then noted the head of the q-tipwas missing. He is concerned the tip is in the ear canal. No dizziness, vertigo, changes in hearing, or drainage. He denies any recent swimming or use of q-tips, ear plugs, or ear buds. No recent sinus, allergy or URI symptoms. No cough, n/v/d, ALVARADO, or rash. Denies fever, chills, sweats, or fatigue. Patient denies wheezing, shortness of breath, increased WOB, or chest pain. No other URI symptoms. No other sick symptoms. Pain on scale of 0-10 with 0 being no pain and 10 being greatest pain: 0 Nothing makes the symptoms better. Nothing makes them worse. Self-treatment:. none The severity is mild and the symptoms are not improving. The patient did not have a similar problem in the last 3 months. The patient did not take any antibiotics in the last 3 months. Barriers to learning: none. Reviewed meds, OTCs, herbals or supplements. Reviewed allergies, medications, social history, and past medical history. PAST MEDICAL HISTORY No date: Anemia No date: Benign prostate hyperplasia No date: Black stool No date: Cataract No date: Diverticulosis No date: Dysphagia No date: Esophagitis No date: FHx: colon cancer Comment: Brother No date: Gastritis with bleeding No date: Hiatal hernia No date: History of colon polyps No date: Rectal bleeding No date: Rheumatoid arthritis(714.0) ALLERGIES Morphine MEDICATIONS Current Outpatient Medications Medication Sig metoprolol succinate ER (TOPROL XL) 100 mg Take by mouth. lisinopril (ZESTRIL) 20 mg tablet Take by mouth q 24 HR. ZINC ORAL Take by mouth. cholecalciferol, vitamin D3, (VITAMIN D3 ORAL) Take by mouth. multivit-min/ferrous fumarate (MULTI VITAMIN ORAL) Take by mouth. Pt takes vitamins through a smoothie, aspirin, enteric coated (ASPIRIN, ENTERIC COATED) 81 mg EC tablet aspirin 81 mg tablet aspirin, enteric coated (ASPIRIN, ENTERIC COATED) 81 mg EC tablet Take by mouth. (Patient not taking: Reported on 09/26/2022) Cyanocobalamin 250 mcg tab Vitamin B-12 25 mcg tablet Vitamin E Acetate, Bulk, 50 % powd Take by mouth. (Patient not taking: Reported on 09/26/2022) Echinacea purpurea,angustif xt (ECHINACEA PURP XT,HUMZA RT EXT) 125 mg cap echinacea 125 mg capsule No current facility-administered medications for this visit. Medications and allergies reviewed by this provider. SOCIAL HISTORY Social History Tobacco Use Smoking status: Former Current packs/day: 0.00 Average packs/day: 3.0 packs/day for 15.0 years (45.0 ttl pk-yrs) Types: Cigarettes Start date: 12/09/1974 Quit date: 12/09/1989 Years since quittin.0 Smokeless tobacco: Never Substance Use Topics Alcohol use: Yes Comment: Occasionally Drug use: Never REVIEW OF SYSTEMS Review of Systems ROS: constitutional-neg, HENT-ear FB, wax, Eyes- neg, heart-neg, respiratory-neg, skin-neg, lymph-neg, Allergy- neg, neuro-neg, - All systems neg except as noted above in HPI. OBJECTIVE: Pulse (!) 56 Temp 36.3 C (97.4 F) (Oral) Resp 18 Ht 180.3 cm (5' 11) Wt 93.6 kg (206 lb 3.9 oz) SpO2 100% BMI 28.76 kg/m . Vital signs reviewed by this provider. Physical Exam Vitals reviewed. Constitutional: General: He is not in acute distress. Appearance: Normal appearance. He is normal weight. He is not ill-appearing, toxic-appearing or diaphoretic. HENT: Head: Normocephalic and atraumatic. Right Ear: There is impacted cerumen. No foreign body. Left Ear: There is impacted cerumen. No foreign body. Ears: Comments: -Ears: No FB noted to the right or left ear canals. Bilateral ears- bilateral cerumen impaction Wax removed with water irrigation by the [place] [facility]. Tolerated well Ear exam post wax removal: Right and left ears- TM pearly menendez with light reflex. Ear canal not red or swollen. No tragus tenderness to pumping. No pain with manipulation of the auricle. No mastoid or preauricular tenderness, edema, or erythema. Lymphadenopathy: Head: Right side of head: No preauricular or posterior auricular adenopathy. Left side of head: No preauricular or posterior auricular adenopathy. Cervical: No cervical adenopathy. Skin: General: Skin is warm. Capillary Refill: Capillary refill takes less than 2 seconds. Findings: No erythema or rash. Neurological: General: No focal deficit present. Mental Status: He is alert and oriented to person, place, and time. Ambulatory Ear Lavage Pre-treatment: No pre-treatment Treatment: Both ears Equipment and Irrigation solution and Volume used: Single use syringe with single use irrigation tip 50 % Hydrogen Peroxide 3%, 50% Water Patient tolerated procedure: yes Tympanic membrane assessment: Tympanic membrane assessed by LIP pre and post procedure ASSESSMENT/PLAN: 1. Bilateral impacted cerumen - ICD9: 380.4, ICD10: H61.23 No q-tip or other FB noted in the ears - AMBULATORY EAR LAVAGE/IRRIGATION Wax removed by water irrigation by the [facility]. Tolerated well Call PCP if sx worsen or no better. If symptoms worsen, or new symptoms develop go to ER. If you have worsening of breathing or breathing changes- go to ER. If you have persistent fever unrelieved by Tylenol/Motrin- go to the ER. Discussed all red flag symptoms and reasons to go to ER No further questions. Follow up as needed. The patient verbalizes understanding and is in agreement with plan of care. Barriers to learning: none. Toya Jacobsen PA-C Medical Decision Making: Problems: Low: Acute, uncomplicated illness or injury Risk: Low: Low risk from testing/treatment Medical Decision Making Level: 3 - Low I spent a total of 20 minutes on the date of the service which included preparing to see the patient, [id number] patient care, completing clinical documentation, performing a medically appropriate examination, counseling and educating the patient/family/caregiver, ordering medications, tests, or procedures, and communicating results to the patient/family/caregiver. documented in this encounter [facility] 02-19-2023 Instructions Joe Rodriguez APRN.[facility] - 02/19/2023 11:48 AM EDT Cellulitis Cellulitis is an infection of your skin and the layers of tissue below your skin. It can affect any part of the body. It most often affects the face, arms, or legs. Germs can enter your body from a cut, scratch, or bite. The infected part gets red, warm, painful, swollen, and irritated. Cellulitis can be treated with drugs, like antibiotics. Some people need surgery to drain the infection. What care is needed at home? Ask your doctor what you need to do when you go home. Make sure you ask questions if you do not understand what the doctor says. This way you will know what you need to do. If you have drugs to take at home, get the prescription filled right away, and take them exactly as ordered. Do not use extra antibiotic creams or ointments on the area. Use pillows to raise the infected arm or leg above the level of your heart. This will lower pain and swelling. Keep the area clean and dry. Do not squeeze, scratch, or rub it. Use clean, warm compresses to help ease pain and swelling. Wet a clean wash cloth or small towel with hot water. Put it on the area for 5 to 10 minutes. Wash your hands before and after touching the area. Wash the area with soap and water. Pat dry. Do not rub. Put clean dressings or bandages on the area as ordered by the doctor. Ask your doctor when it is safe to take a bath or shower. You can draw a line with a waterproof marker around the red area to see if it is getting bigger or smaller. Call the doctor if the area is getting much bigger. Also call if you have more pain or it feels more tender. If you have diabetes, carefully check your blood sugars and adjust your drugs or insulin as directed by your doctor. What follow-up care is needed? Your doctor may ask you to make visits to the office to check on your progress. Be sure to keep these visits. If surgery was needed to drain the infection, your doctor may leave the area open. Keep this area clean. Protect it from dirt and dust in the air. If you have stitches or marlin, you will need to have them taken out. Your doctor will often want to do this in 1 to 2 weeks. What drugs may be needed? The doctor may order drugs to: Treat the infection. Finish all of the antibiotics, even if the infection appears to have gone away. Help with pain and swelling What problems could happen? Infection in the blood. This is sepsis. Bone infection Inflammation of the lymph vessels Inflammation of the heart Meningitis Shock Tissue or gangrene What can be done to prevent this health problem? Wear proper clothing and shoes to cover your body and prevent cuts and bruises. Keep your nails trimmed. This will help you avoid harming the skin around them. Keep skin moisturized. Use lotion that does not have fragrance added to avoid dry, cracked skin. Treat athlete's foot as directed by your doctor. If you have a chronic skin condition, talk with your doctor about how to keep it under the best control. If you have chronic swelling (edema) of an arm or leg, talk with your doctor about how to lower the swelling. Your doctor may want you to wear support stockings. Practice good hygiene. Wash your hands often with soap and water. If you often have fungal infections, ask your doctor if you should be using an antifungal drug to prevent the cellulitis from occurring again. If you scratch or cut your skin, wash the area carefully with soap and water. Lose weight since being overweight is linked to cellulitis. When do I need to call the doctor? Signs of infection. These include a fever of 100.4 F (38 C) or higher, chills, or wound that will not heal. Signs of wound infection. These include swelling, redness, warmth around the wound; too much pain when touched; yellowish, greenish, or bloody discharge; foul smell coming from the cut or wound site; wound site opens up; blisters form at the site. When cellulitis is on the face, any signs of spreading to the sinus or eye must be evaluated and treated right away to avoid a serious problem, called orbital cellulitis. This can lead to severe sinus infection, blindness, brain abscess, or . Inflamed area is getting bigger You see red streaks going up your arm or leg Feeling weak or dizzy You are not feeling better in 2 to 3 days or you are feeling worse documented in this encounter [facility] 02-19-2023 Note HNO ID: [id number] Author: Joe Rodriguez APRN.COPY WRITER Service: ? Author Type: Nurse Practitioner Type: Progress Notes Filed: 02/19/2023 12:01 PM Note Text: Subjective Patrice Joel is a 82 year old year old who presents to express care today with complaint of tenderness to left index finger. Reports working with a morton in his yard, and poked his finger with a thorn and is concerned for possible infection. Reports some redness, warmth and swelling. Denies any associated pain or bony tenderness. Symptoms present for the last 2 days. Unsure of last tetanus shot. Also presents to clinic with complaint of wound check to face. Had mole removed 1 week prior and is requesting new bandage be placed on site if possible. Reports no concerns for infection of complications. Has been keeping site clean and dry. Aside from symptoms as described above, patient has no other complaints at this time. Review of Systems Constitutional: Positive for activity change. Negative for appetite change, chills, diaphoresis, fatigue and fever. Musculoskeletal: Negative for myalgias. Skin: Positive for color change and wound. Allergic/Immunologic: Negative for environmental allergies, food allergies and immunocompromised state. Psychiatric/Behavioral: Negative for agitation and confusion. ALLERGIES Allergen Reactions Morphine Itching, Other: See Comments convulsions Current Outpatient Medications on File Prior to Visit Medication Sig cholecalciferol, vitamin D3, (VITAMIN D3 ORAL) Take by mouth. multivit-min/ferrous fumarate (MULTI VITAMIN ORAL) Take by mouth. Pt takes vitamins through a smoothie, Cyanocobalamin 250 mcg tab Vitamin B-12 25 mcg tablet lisinopril (ZESTRIL) 20 mg tablet Take by mouth q 24 HR. ZINC ORAL Take by mouth. aspirin, enteric coated (ASPIRIN, ENTERIC COATED) 81 mg EC tablet aspirin 81 mg tablet aspirin, enteric coated (ASPIRIN, ENTERIC COATED) 81 mg EC tablet Take by mouth. (Patient not taking: Reported on 09/26/2022) Vitamin E Acetate, Bulk, 50 % powd Take by mouth. (Patient not taking: Reported on 09/26/2022) Echinacea purpurea,angustif xt (ECHINACEA PURP XT,HUMZA RT EXT) 125 mg cap echinacea 125 mg capsule No current facility-administered medications on file prior to visit. 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 Physical Exam Vitals and nursing note reviewed. Constitutional: General: He is not in acute distress. Appearance: Normal appearance. He is not ill-appearing, toxic-appearing or diaphoretic. HENT: Head: Normocephalic and atraumatic. Comments: Patient has actively healing surgical site noted to left cheek as depicted in graphic. Area measures approximately 2 cm in diameter. No erythema, exudate, or sutures are in place. No warmth, tenderness, or pustules noted. No soft tissue swelling noted to face present. Wound appears to be actively healing with no complications. Musculoskeletal: Left hand: Swelling present. No deformity, lacerations, tenderness or bony tenderness. Normal range of motion. Normal strength. Normal sensation. There is no disruption of two-point discrimination. Normal capillary refill. Hands: Comments: Left index finger- patient has facial abrasion noted to palmar surface of left hand more specifically left index finger as depicted in graphic. There is some localized erythema as well as tissue induration but patient does not have any pain to palpation. Symptoms localized to area noted in graphic. No abscess or purulent exudate is noted on exam. Patient maintains full range of motion in affected digit and there is no bony tenderness present. Dorsal surface of digit is unaffected and normal in appearance when compared to unaffected first, third, fourth, and fifth digits. Cap refill in affected digit less than 3 seconds. No visible or palpable foreign body noted on exam. Skin: General: Skin is warm and dry. Findings: Erythema present. Neurological: General: No focal deficit present. Mental Status: He is alert and oriented to person, place, and time. Psychiatric: Mood and Affect: Mood normal. Behavior: Behavior normal. Thought Content: Thought content normal. Judgment: Judgment normal. Assessment/Plan ASSESSMENT/PLAN: 1. Puncture wound of le (more content not included)... [facility] 02-19-2023 History of Present illness Narrative Images from the original note were not included. Subjective Patrice Joel is a 82 year old year old who presents to express care today with complaint of tenderness to left index finger. Reports working with a morton in his yard, and poked his finger with a thorn and is concerned for possible infection. Reports some redness, warmth and swelling. Denies any associated pain or bony tenderness. Symptoms present for the last 2 days. Unsure of last tetanus shot. Also presents to clinic with complaint of wound check to face. Had mole removed 1 week prior and is requesting new bandage be placed on site if possible. Reports no concerns for infection of complications. Has been keeping site clean and dry. Aside from symptoms as described above, patient has no other complaints at this time. Review of Systems Constitutional: Positive for activity change. Negative for appetite change, chills, diaphoresis, fatigue and fever. Musculoskeletal: Negative for myalgias. Skin: Positive for color change and wound. Allergic/Immunologic: Negative for environmental allergies, food allergies and immunocompromised state. Psychiatric/Behavioral: Negative for agitation and confusion. ALLERGIES Allergen Reactions Morphine Itching, Other: See Comments convulsions Current Outpatient Medications on File Prior to Visit Medication Sig cholecalciferol, vitamin D3, (VITAMIN D3 ORAL) Take by mouth. multivit-min/ferrous fumarate (MULTI VITAMIN ORAL) Take by mouth. Pt takes vitamins through a smoothie, Cyanocobalamin 250 mcg tab Vitamin B-12 25 mcg tablet lisinopril (ZESTRIL) 20 mg tablet Take by mouth q 24 HR. ZINC ORAL Take by mouth. aspirin, enteric coated (ASPIRIN, ENTERIC COATED) 81 mg EC tablet aspirin 81 mg tablet aspirin, enteric coated (ASPIRIN, ENTERIC COATED) 81 mg EC tablet Take by mouth. (Patient not taking: Reported on 09/26/2022) Vitamin E Acetate, Bulk, 50 % powd Take by mouth. (Patient not taking: Reported on 09/26/2022) Echinacea purpurea,angustif xt (ECHINACEA PURP XT,HUMZA RT EXT) 125 mg cap echinacea 125 mg capsule No current facility-administered medications on file prior to visit. 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 Constitutional: General: He is not in acute distress. Appearance: Normal appearance. He is not ill-appearing, toxic-appearing or diaphoretic. HENT: Head: Normocephalic and atraumatic. Comments: Patient has actively healing surgical site noted to left cheek as depicted in graphic. Area measures approximately 2 cm in diameter. No erythema, exudate, or sutures are in place. No warmth, tenderness, or pustules noted. No soft tissue swelling noted to face present. Wound appears to be actively healing with no complications. Musculoskeletal: Left hand: Swelling present. No deformity, lacerations, tenderness or bony tenderness. Normal range of motion. Normal strength. Normal sensation. There is no disruption of two-point discrimination. Normal capillary refill. Hands: Comments: Left index finger- patient has facial abrasion noted to palmar surface of left hand more specifically left index finger as depicted in graphic. There is some localized erythema as well as tissue induration but patient does not have any pain to palpation. Symptoms localized to area noted in graphic. No abscess or purulent exudate is noted on exam. Patient maintains full range of motion in affected digit and there is no bony tenderness present. Dorsal surface of digit is unaffected and normal in appearance when compared to unaffected first, third, fourth, and fifth digits. Cap refill in affected digit less than 3 seconds. No visible or palpable foreign body noted on exam. Skin: General: Skin is warm and dry. Findings: Erythema present. Neurological: General: No focal deficit present. Mental Status: He is alert and oriented to person, place, and time. Psychiatric: Mood and Affect: Mood normal. Behavior: Behavior normal. Thought Content: Thought content normal. Judgment: Judgment normal. Assessment/Plan ASSESSMENT/PLAN: 1. Puncture wound of left index finger - ICD9: 883.0, ICD10: S61.231A (primary diagnosis) - CEPHALEXIN 500 MG CAPSULE 2. Localized erythema - ICD9: 695.9, ICD10: L53.9 - CEPHALEXIN 500 MG CAPSULE 3. Visit for wound check - ICD9: V58.89, ICD10: Z51.89 Plan of care for this patient is to treat for: 1 & 2) Puncture wound of left index finger with associated localized erythema-patient will be given prescription for Keflex for management of associated infection. Patient advised to keep area clean and dry. Tetanus shot was offered but patient declined. I advised patient to monitor for worsening signs of infection including: worsening redness, swelling, erythematous streaking, new onset drainage, foul odor, and or flu like symptoms such as fever, chills and body aches. If patient experiences any of the aforementioned symptoms, prompt ED evaluation recommended as patient may require IV antibiotics at that time. At the present time, I feel conservative management with oral antibiotics, as well as keeping site clean and dry, doing necessary dressing changes and monitoring for worsening symptoms to be appropriate at this time given mild nature of presentation. 3) wound check-patient had mole removed by corn picker 1 week prior, patient reports no complications but is requesting bandage to be applied to affected wound if possible. Of note, there is no evidence of infection and wound appears to be actively healing. Did discuss with patient if there was infection antibiotic prescribed above for unrelated puncture wound left index finger would provide appropriate coverage. Bandage was applied prior to discharge and dressing supplies were provided to patient for home dressing changes. Advise close follow-up with corn picker as needed. Patient given educational materials - see patient instructions. Discussed use, benefit, and side effects of prescribed medications. All patient questions answered. Pt voiced understanding and agrees with treatment plan. Patient advised if symptoms worsen or persist, they are to follow up with PCP or ED. Patient agreeable with treatment plan. Catieon was used to dictate this note. Joe Rodriguez CNP 02/19/2023 11:34 AM documented in this encounter [facility] 01-03-2023 Telephone encounter Note Based on my last visit he refused to complete this with any sort of contrast and did not wish to proceed further. If this has changed please let me know. [facility] 01-03-2023 Miscellaneous Notes Based on my last visit he refused to complete this with any sort of contrast and did not wish to proceed further. If this has changed please let me know. Name of caller: Iris Contact phone number: [phone] Relationship to Patient: [facility] Provider: Stacia Practice: Kylee CALLES Chief Complaint/Reason for Call: Iris called in stating the pt has never had a complete TTE done before so he would have to have that ordered first before getting the limited echocardiogram done. Please re-order the complete TTE for the pt. Please advise. Best time of day caller can be reached: Any Patient advised that office/PCP has 24-48 business hours to return their call: No documented in this encounter [facility] 01-03-2023 Telephone encounter Note Name of caller: Iris Contact phone number: [phone] Relationship to Patient: [address] [facility] Provider: Stacia Practice: Kylee CALLES Chief Complaint/Reason for Call: Iris called in stating the pt has never had a complete TTE done before so he would have to have that ordered first before getting the limited echocardiogram done. Please re-order the complete TTE for the pt. Please advise. Best time of day caller can be reached: Any Patient advised that office/PCP has 24-48 business hours to return their call: No [facility] 12-24-2022 Telephone encounter Note GoFormzhart message sent. [facility] 12-24-2022 Miscellaneous Notes Mychart message sent. Detailed message given to patient, who voiced understanding. Patient does not have a urologist and questions who you would refer him to? Please respond to patient via My Chart with your referral/recommendation. Per Dr. Fallon's lab result note: Kamryn Ibrahim, Only finding is that your PSA is quiet high at 18. I would recommend follow up with urology given how high this is, as it may represent prostate cancer. It has almost doubled from last year. Sincerely, Hadley Fallon MD Left message to call back on patient's name-identified voicemail. Please relay the message to the patient. documented in this encounter [facility] 12-24-2022 Telephone encounter Note Detailed message given to patient, who voiced understanding. Patient does not have a urologist and questions who you would refer him to? Please respond to patient via My Chart with your referral/recommendation. [facility] 12-24-2022 Telephone encounter Note Per Dr. Fallon's lab result note: Kamryn Ibrahim, Only finding is that your PSA is quiet high at 18. I would recommend follow up with urology given how high this is, as it may represent prostate cancer. It has almost doubled from last year. Sincerely, Hadley Fallon MD [facility] 12-24-2022 Telephone encounter Note Left message to call back on patient's name-identified voicemail. Please relay the message to the patient. [facility] 11-24-2022 Evaluation + Plan note Associated Problem(s): Elevated PSA Continuing to follow PSA. [facility] 11-24-2022 Miscellaneous Notes Associated Problem(s): Elevated PSA Continuing to follow PSA. Associated Problem(s): Primary hypertension His BP is well controlled today on amlodipine only. No change to this. Basic labs ordered for monitoring. Discussed rationale for previously ordered Echo (new murmur identified at previous visit). He refuses secondary to use of contrast. documented in this encounter [facility] 11-24-2022 Evaluation + Plan note Associated Problem(s): Primary hypertension His BP is well controlled today on amlodipine only. No change to this. Basic labs ordered for monitoring. Discussed rationale for previously ordered Echo (new murmur identified at previous visit). He refuses secondary to use of contrast. [facility] 11-22-2022 History of Present illness Narrative Images from the original note were not included. [facility] [address] [facility] [address] Dept: [phone] Dept Chief Complaint: Patrice Joel is an 82 y.o. male here for an annual wellness visit. Assessment/Plan : Problem List Items Addressed This Visit Circulatory Primary hypertension His BP is well controlled today on amlodipine only. No change to this. Basic labs ordered for monitoring. Discussed rationale for previously ordered Echo (new murmur identified at previous visit). He refuses secondary to use of contrast. Relevant Medications amLODIPine (Norvasc) 10 MG tablet Other Relevant Orders CBC Comprehensive metabolic panel Genitourinary Elevated PSA Continuing to follow PSA. Relevant Orders PSA Screening Other Visit Diagnoses Routine general medical examination at health care facility - Primary Vaccine refused by patient I have reviewed and reconciled the medication list with the patient today. Current Outpatient Medications Medication Sig Dispense Refill econazole nitrate 1 % cream Apply 2 times daily to fungal toenail(s). 30 g 1 MAGNESIUM PO Take by mouth. UNABLE TO FIND Med Name: nitric oxide support amLODIPine (Norvasc) 10 MG tablet Take 1 tablet (10 mg) by mouth daily. 90 tablet 3 No current facility-administered medications for this visit. Also reviewed during this visit: Allergies Meds Problems The following health maintenance schedule was reviewed with the patient and provided in printed form in the after visit summary: Health Maintenance Topic Date Due COVID-19 Vaccine (1) Never done DTaP/Tdap/Td Vaccines (1 - Tdap) Never done Zoster Vaccines (1 of 2) Never done Pneumococcal Vaccine: 65+ Years (1 - PCV) Never done Influenza Vaccine (1) 01/11/2023 Depression Screening 11/23/2023 Lipid Panel 08/10/2027 HIB Vaccines Aged Out Hepatitis B Vaccines Aged Out IPV Vaccines Aged Out Hepatitis A Vaccines Aged Out Meningococcal Vaccine Aged Out Rotavirus Vaccines Aged Out HPV Vaccines Aged Out List of current healthcare providers: Patient Care Team: Hadley Fallon MD as PCP - General Orders Placed This Encounter Procedures CBC Standing Status: Future Number of Occurrences: 1 Standing Expiration Date: 11/23/2023 Comprehensive metabolic panel Standing Status: Future Number of Occurrences: 1 Standing Expiration Date: 11/23/2023 PSA Screening Standing Status: Future Number of Occurrences: 1 Standing Expiration Date: 11/23/2023 Subjective : Review of Systems Physical Exam Vitals and nursing note reviewed. Constitutional: Appearance: Normal appearance. HENT: Head: Normocephalic and atraumatic. Right Ear: Tympanic membrane, ear canal and external ear normal. Left Ear: Tympanic membrane, ear canal and external ear normal. Nose: Nose normal. Mouth/Throat: Mouth: Mucous membranes are moist. Pharynx: Oropharynx is clear. Eyes: Extraocular Movements: Extraocular movements intact. Conjunctiva/sclera: Conjunctivae normal. Pupils: Pupils are equal, round, and reactive to light. Cardiovascular: Rate and Rhythm: Normal rate and regular rhythm. Pulses: Normal pulses. Heart sounds: Murmur heard. Systolic murmur is present with a grade of 3/6. Pulmonary: Effort: Pulmonary effort is normal. Breath sounds: Normal breath sounds. No wheezing or rhonchi. Abdominal: General: Abdomen is flat. Bowel sounds are normal. Palpations: Abdomen is soft. Tenderness: There is no abdominal tenderness. Musculoskeletal: General: Normal range of motion. Cervical back: Normal range of motion and neck supple. Skin: General: Skin is warm and dry. Capillary Refill: Capillary refill takes less than 2 seconds. Neurological: General: No focal deficit present. Mental Status: He is alert. Mental status is at baseline. Health Risk Assessment: General: General In general, how would you say your health is?: Good In the past 7 days, have you experienced any of the following: New or Increased Pain, New or Increased Fatigue, Loneliness, Social Isolation, Stress or Anger?: (!) Yes Select all that apply: (!) Anger, Stress, Social Isolation, Loneliness, New or Increased Fatigue, New or Increased Pain Do you get the social and emotional suppport you need?: Yes Interventions: Pain Issues: Patient declines any further evaluation / treatment for this issue, Fatigue: Patient declines any further evaluation / treatment for this issue, Loneliness: Patient declines any further intervention for this issue, Social isolation:Patient declines any further intervention for this issue, Stress: Patient declines any further evaluation / treatment for this issue, Anger: Patient declines any further evaluation / treatment for this issue, and Inadequate social / emotional support: Patient declines any further intervention for this issue Health Habits/Nutrition: Health Habits / Nutrition On average, how many days per week do you engage in moderate to strenous exercise (like a brisk walk)?: (!) 0 days On average, how man minutes do you engage in exercise at this level?: (!) 0 min Have you lost any weight without trying in the past 3 months? : Yes Have you seen the dentist within the past year?: Yes Interventions: Inadequate physical activity: Patient is not ready to increase his / her physical activity level at this time Hearing/ Vision: Hearing / Vision Do you or your family notice any trouble with your hearing that hasn't been managed with hearing aids?: (!) Yes Do you have difficulty driving, watching TV, or doing any of your daily activities because of your eyesight?: No Have you had an eye exam within the past year?: Yes No results found. Interventions: Hearing concerns: Patient declines any further evaluation / treatment for hearing issues Safety: Safety Do you have a working smoke detector?: Yes Do you have any tripping hazards - loose or unsecured carpets or rugs?: No Do you have any tripping hazards - clutter in doorways, halls, or stairs?: No Do you have either shower bars, grab bars, non-slip mats or non-slip surfaces in your shower or bathtub? : Yes Do all your stairways have a railing or banister? : Yes Do you fasten your seatbelt when you are in a car?: Yes ADL: ADL In the past 7 days, did you need help from others to perform any of the following everyday activities: Eating, dressing, grooming,bathing, toileting, or walking / balance? : No In the past 7 days, did you need help from others to take care of any of the following: laundry, housekeeping, banking / finances,shopping, telephone use, food preparation, transportation, or taking medications? : No Living Will: Living Will Do you have a living will?: No Interventions: Patient declines ACP discussion / assistance Cognitive: Interventions: Fall Risk: Fall Risk One or more falls in the last year:: No Advised to use a cane or walker to get around safely:: Yes Feels unsteady when walking:: Yes Steadies self on furniture while walking at home:: Yes Worried about falling:: No Depression Screening: Over the past 2 weeks, how often have you been bothered by any of the following problems? Little interest or pleasure in doing things: Not at all Feeling down, depressed, or hopeless: Not at all Patient Health Questionnaire-2 Score: 0 Interventions: Tobacco Use: Social History Tobacco Use Smoking Status Former Types: Cigarettes Quit date: 02/04/1990 Years since quittin.8 Smokeless Tobacco Never Alcohol Use: Audit Alcohol Screening Q1: How often do you have a drink containing alcohol?: 4 or more times a week Q2: How many drinks containing alcohol do you have on a typical day when you are drinking?: 1 or 2 Q3: How often do you have six or more drinks on one occasion?: Never Audit-C Score: 4 Skip to questions 9-10?: 1 Q4: How often during the last year have you found that you were not able to stop drinking once you had started?: Never Q5: How often during the last year have you failed to do what was normally expected from you because of drinking?: Never Q6: How often during the last year have you needed an alcoholic drink first thing in the morning to get yourself going after a night of heavy drinking?: Never Q7: How often during the last year have you had a feeling of guilt or remorse after drinking?: Never Q8: How often during the last year have you been unable to remember what happened the night before because you had been drinking?: Never Q9: Have you or someone else been injured as a result of your drinking?: No Q10: Has a relative, friend, doctor, or another health professional expressed concern about your drinking or suggested you cut down?: No Audit Total Score: 4 Interventions: Objective : BP 125/72 Pulse 58 Ht 6' 1 (1.854 m) Wt 219 lb (99.3 kg) SpO2 96% BMI 28.89 kg/m No results found. documented in this encounter [facility] 11-22-2022 Instructions Hadley Fallon MD - 11/22/2022 11:00 AM EDT Personalized Preventative Plan for Patrice Joel - 11/22/2022 Medicare offers a range of preventative health benefits. Some of the tests and screenings are paid in full while others may be subject to a deductible, co-insurance, and / or copay. Some of these benefits include a comprehensive review of your medical history including lifestyle, illnesses that may run in your family, and various assessments and screenings as appropriate. After reviewing your medical record and screening and assessments performed today, your provider may have ordered immunizations, labs, imaging, and / or referrals for you. A list of these orders (if applicable) as well as your Preventative Care list are included within your After Visit Summary for your review. Other Preventative Recommendations: A preventive eye exam by an pr specialist is recommended every 1-2 years to screen for glaucoma, cataracts, macular degeneration, and other eye disorders. A preventive dental visit is recommended every 6 months. Try to get at least 150 minutes of exercise per week or 10,000 steps per day on a pedometer. You need 1200-1500mg of calcium and [id number] international units of vitamin D per day. It is possible to meet your calcium requirement with diet alone, but a vitamin D supplement is usually necessary to meet this goal. When exposed to the sun, use a sunscreen that protects against both UVA and UVB radiation with an SPF of 30 or greater. Reapply every 2-3 hours or after sweating, drying off with a towel, or swimming. Always wear a seat belt when traveling in a car. Always wear a helmet when riding a bicycle or a motorcycle documented in this encounter [facility] 10-26-2022 History of Present illness Narrative Images from the original note were not included. [facility] [address] [facility] [address] Dept: [phone] Dept Visit Date: 10/26/22 HPI: Patrice Joel is a 82 y.o. male who presents today for: Chief Complaint Patient presents with Dizziness Experiencing dizziness, thinks its the lisinopril, will get dizzy sometimes after eating, went to ER and they could not determine the cause. Also having headaches, front and back, stiffness in neck and shoulders. Dizziness This is a new problem. The current episode started more than 1 month ago. The problem occurs every several days. The problem has been waxing and waning. Associated symptoms include anorexia, headaches and nausea. Pertinent negatives include no change in bowel habit, chest pain, diaphoresis, fever, numbness, rash, swollen glands, vertigo, visual change, vomiting or weakness. The symptoms are aggravated by standing, stress and bending. He has tried rest and lying down for the symptoms. The treatment provided no relief. Current Outpatient Medications Medication Sig Dispense Refill econazole nitrate 1 % cream Apply 2 times daily to fungal toenail(s). 30 g 1 MAGNESIUM PO Take by mouth. UNABLE TO FIND Med Name: nitric oxide support amLODIPine (Norvasc) 10 MG tablet Take 1 tablet (10 mg) by mouth daily. 30 tablet 0 No current facility-administered medications for this visit. Allergies Allergen Reactions Morphine Anaphylaxis, Rash and Itching Other reaction(s): Other: See Comments, Other: See Comments convulsions History reviewed. No pertinent past medical history. Social History Tobacco Use Smoking status: Former Types: Cigarettes Quit date: 02/04/1990 Years since quittin.7 Smokeless tobacco: Never Substance Use Topics Alcohol use: Yes Comment: half of a glass of wine with dinner Subjective: Review of Systems Constitutional: Negative for diaphoresis and fever. Respiratory: Negative for shortness of breath. Cardiovascular: Negative for chest pain, palpitations and leg swelling. Gastrointestinal: Positive for anorexia and nausea. Negative for change in bowel habit and vomiting. Skin: Negative for rash. Neurological: Positive for dizziness and headaches. Negative for vertigo, weakness and numbness. Objective: BP 128/76 Pulse 58 Ht 6' 1 (1.854 m) Wt 223 lb (101 kg) SpO2 98% BMI 29.42 kg/m Physical Exam Vitals and nursing note reviewed. Constitutional: General: He is not in acute distress. Appearance: Normal appearance. He is overweight. He is not ill-appearing or toxic-appearing. HENT: Head: Normocephalic and atraumatic. Cardiovascular: Rate and Rhythm: Normal rate and regular rhythm. Heart sounds: Normal heart sounds. Pulmonary: Effort: Pulmonary effort is normal. No respiratory distress. Breath sounds: Normal breath sounds. No wheezing or rhonchi. Skin: Coloration: Skin is not pale. Neurological: Mental Status: He is alert and oriented to person, place, and time. Assessment: Diagnosis Plan 1. Primary hypertension amLODIPine (Norvasc) 10 MG tablet 2. Dizziness Plan: Patrice was seen today for dizziness. Diagnoses and all orders for this visit: Primary hypertension (Primary) Chronic, controlled per manual recheck. Possible side effects to lisinopril vs postural hypotension. Stop lisinopril, start amlodipine. Monitor BP at home. Increase fluid intake. Activity as tolerated. - amLODIPine (Norvasc) 10 MG tablet; Take 1 tablet (10 mg) by mouth daily. Dizziness Recurrent problem. Not improved with treatment of hypertension, he actually thinks its worse. Changing meds per above. CT brain done in ED in July with no acute findings. Has had ECG, no arrhthymias, ischemic changes. Labs without metabolic abnormalities; TSH was low but normal T3/T4. Has echo scheduled. Follow up as scheduled with PCP in 4 weeks. Follow up for Next scheduled follow-up. Goals None 'HAMLET Bhatt 10/26/2022 2:50 PM documented in this encounter [facility] 10-23-2022 Telephone encounter Note Made appt 10/26 at 11:20 with Larissa Fallon'jennifer limited availability- pt states he needs medication changed sooner rather than later [facility] 10-23-2022 Miscellaneous Notes Made appt 10/26 at 11:20 with Larissa d/t Fallon's limited availability- pt states he needs medication changed sooner rather than later LM on name identified VM to return call regarding response from Dr Fallon. Please schedule pt for follow up with Dr Fallon There is not another way to my knowledge to do the Echo. It is not the typical contrast use for a CT that is used for an Echo however. He should be seen of the issues with lisinopril. Last I saw him he needed a BP medication. I don't have a condition for which a support animal would be appropriate. They also are only good for service animals and not emotional support. Dr Fallon: I spoke with pt, he is concerned about the contrast dye in the ECHO, brother almost from the contrast. His test is scheduled at [facility] 11/06/2022 Pt also states he has been very sick since started the lisinopril. Pt stated his balance is off, ALVARADO, nausea. Cannot eat and has lost 17 lbs since his office visit in 09/05/22. Please advise. Pt stated he may need to move as in Jun and cannot stay in home. Pt is trying to find an apartment that takes his dog. Does not want to part with it. If needed, would you write a letter stating the necessity of keeping his pet? Patient came into office and wanted his Echo Order printed to take it somewhere else since [facility] is scheduling out too far. Patient has questions about the test that was ordered and patient is requesting phone call back. documented in this encounter [facility] 10-23-2022 Telephone encounter Note LM on name identified VM to return call regarding response from Dr Fallon. Please schedule pt for follow up with Dr Fallon [facility] 10-23-2022 Telephone encounter Note There is not another way to my knowledge to do the Echo. It is not the typical contrast use for a CT that is used for an Echo however. He should be seen of the issues with lisinopril. Last I saw him he needed a BP medication. I don't have a condition for which a support animal would be appropriate. They also are only good for service animals and not emotional support. T [facility] 10-23-[address] Fallon: I spoke with pt, he is concerned about the contrast dye in the ECHO, brother almost from the contrast. His test is scheduled at [facility] 11/06/2022 Pt also states he has been very sick since started the lisinopril. Pt stated his balance is off, ALVARADO, nausea. Cannot eat and has lost 17 lbs since his office visit in 09/05/22. Please advise. Pt stated he may need to move as in Jun and cannot stay in home. Pt is trying to find an apartment that takes his dog. Does not want to part with it. If needed, would you write a letter stating the necessity of keeping his pet? T [facility] 10-18-2022 Telephone encounter Note Patient came into office and wanted his Echo Order printed to take it somewhere else since [facility] is scheduling out too far. Patient has questions about the test that was ordered and patient is requesting phone call back. T [facility] 09-06-2022 Miscellaneous Notes Your TSH is low but T3 and T4 are normal. Because those are normal I do not recommend starting anything. This is something we will just want to continue monitoring. My suggestion would be repeating in 6 months to a year and less symptoms of either hypo or hyperthyroid occur. documented in this encounter [facility] 09-06-2022 Progress note Formatting of t his note might be different from the original. Your TSH is low but T3 and T4 are normal. Because those are normal I do not recommend starting anything. This is something we will just want to continue monitoring. My suggestion would be repeating in 6 months to a year and less symptoms of either hypo or hyperthyroid occur. [facility] 09-05-2022 History of Present illness Narrative Images from the original note were not included. [facility] [address] [facility] [address] Visit Type: Office Visit PCP: Hadley Fallon MD Reason for Visit: Hypertension Assessment and Plan Patrice was seen today for hypertension. Diagnoses and all orders for this visit: Primary hypertension - TSH; Future - TSH - lisinopril 20 MG tablet; Take 1 tablet (20 mg) by mouth daily. Elevated TSH - TSH; Future - TSH - T3; Future - T4, free; Future - T3 - T4, free His blood pressure is significantly elevated. Because of this I am recommending increasing his lisinopril from 10 to 20 mg. That being sent on review of his lab work is TSH was elevated. This may be part of the cause. I like to repeat as well as get a T3-T4. Follow up in about 4 weeks (around 10/03/2022) for Hypertension. Subjective Hypertension This is a chronic problem. The current episode started more than 1 month ago. The problem has been waxing and waning since onset. The problem is uncontrolled. Pertinent negatives include no anxiety, blurred vision, chest pain, headaches, malaise/fatigue, orthopnea, palpitations, peripheral edema, shortness of breath or sweats. There are no associated agents to hypertension. Risk factors for coronary artery disease include male gender. Past treatments include TRUDY inhibitors. The current treatment provides mild improvement. There are no compliance problems. Identifiable causes of hypertension include a thyroid problem (elevated TSH - repeating to confirm). [x] Home BP Checks (states high in the morning like today, states in the 130-140s/80s in the afternoon) [] Low salt Diet [] Weight loss Tobacco history: He reports that he quit smoking about 32 years ago. His smoking use included cigarettes. He has never used smokeless tobacco. Review of Systems Constitutional: Negative for malaise/fatigue. Eyes: Negative for blurred vision. Respiratory: Negative for shortness of breath. Cardiovascular: Negative for chest pain, palpitations and orthopnea. Neurological: Negative for headaches. Allergies Allergen Reactions Morphine Anaphylaxis, Rash and Itching Other reaction(s): Other: See Comments, Other: See Comments convulsions Outpatient Medications Prior to Visit Medication Sig Dispense Refill econazole nitrate 1 % cream Apply 2 times daily to fungal toenail(s). 30 g 1 MAGNESIUM PO Take by mouth. UNABLE TO FIND Med Name: nitric oxide support lisinopril 10 MG tablet Take 1 tablet (10 mg) by mouth daily. 30 tablet 11 No facility-administered medications prior to visit. History reviewed. No pertinent past medical history. Social History Socioeconomic History Marital status: Tobacco Use Smoking status: Former Types: Cigarettes Quit date: 02/04/1990 Years since quittin.6 Smokeless tobacco: Never Vaping Use Vaping Use: Never used Substance and Sexual Activity Alcohol use: Yes Comment: half of a glass of wine with dinner Drug use: Never Past Surgical History: Procedure Laterality Date TOTAL HIP ARTHROPLASTY Past Surgical History: Procedure Laterality Date TOTAL HIP ARTHROPLASTY Family History Problem Relation Name Age of Onset Cancer Mother Other ([address]) Brother No Known Problems Daughter Objective BP (!) 162/74 Pulse 56 Ht 6' 1 (1.854 m) Wt 237 lb (108 kg) SpO2 98% BMI 31.27 kg/m Physical Exam Vitals and nursing note reviewed. Constitutional: Appearance: Normal appearance. HENT: Head: Normocephalic and atraumatic. Cardiovascular: Rate and Rhythm: Normal rate and regular rhythm. Pulses: Normal pulses. Heart sounds: Normal heart sounds. No murmur heard. Pulmonary: Effort: Pulmonary effort is normal. Breath sounds: Normal breath sounds. No wheezing or rhonchi. Abdominal: General: Abdomen is flat. Bowel sounds are normal. Palpations: Abdomen is soft. Tenderness: There is no abdominal tenderness. Skin: General: Skin is warm and dry. Neurological: General: No focal deficit present. Mental Status: He is alert. Mental status is at baseline. Data Reviewed Labs: Imaging/Testing: Chart Clean Up: Medications Discontinued During This Encounter Medication Reason lisinopril 10 MG tablet Reorder Hadley Fallon MD 09/07/2022 11:09 PM documented in this encounter [facility] 08-17-2022 Telephone encounter Note Spoke to pt released message from Isabel to pt. Pt understood and will schedule test. [facility] 08-17-2022 Miscellaneous Notes Spoke to pt released message from Isabel to pt. Pt understood and will schedule test. Home Sleep Study; Auth approved through [employer] Auth#; [id number] Exp; 11.14.2022 Call; [phone] to schedule ECHO; Auth approved through [employer] Auth#; [id number] Exp; 11.11.2022 Call; [phone] to schedule Unsure and suspect unlikely to get tests done before that appointment. Due to multiple factors, most of that testing can take a month or more to get done. Taking in the morning is fine. The dose may need increased to help bring that down. S: Patient spoke with [facility] nurse regarding hypertension B: Onset of symptoms/concern couple weeks, high this morning A: Pt was seen last week for high BP. Was given lisinopril. Had an episode of difficulty walking overa week ago. Was seen at [facility] and BP was elevated at that time and was sent to the ED. He has been having some dizziness, vertigo, and nausea episodes in the mornings. It is not every morning, seem to occur mostly when under a lot of stress. Occasionally will have some balance issues during the day but most of the problems are in the morning. When he gets the vertigo episode in usually only lasts up to an hour. Denies headache, chest pain, sob or blurred vision. Has been eating. Went to breakfast and started to feel dizzy today. Took BP medication after eating. Took BP when got home was 178/100 with heart rate 61. 10 minute later retook 160/90. Took again when on phone with PAL, BP 156/69 with heart rate 58. The dizziness has since resolved. Pt is under a lot of stress - lost his on 06-27-22 - she had a hard time for about 18 months before passing - at least 3 strokes and several tia's. 3 siblings that are giving problems with 's estate - never actually but living together for 43 years. Pt has a heart murmer and supposed to have an ECHO on the heart. Pt states has not heard from the office regarding an appointment for the ECHO yet. Pt is supposed to be evaluated for a cpap and has not had that test yet. States was told should hear from Isabel in the office to schedule both ECHO and cpap. Pt asking if he should be taking the lisinopril at a different time. Usually takes after eating breakfast and has been up for a while. Pt is not diabetic. Wants to get everything done as soon as possible because he wants to get back to exercising daily. Pt has an appointment on 09-05-[address] Fallon. Would like to see if he can get the tests done before then. R: Pt is going to start taking the lisinopril when he first gets up in the morning. To call back if develop symptoms again or if BP is elevated. Patient understands care advice. Please contact pt at [phone] to set up ECHO and cpap testing. Instructed to call back with any further questions or concerns. Reason for Disposition Systolic BP >= 130 OR Diastolic >= 80, and is taking BP medications Protocols used: Blood Pressure - [id number] documented in this encounter [facility] 08-17-2022 Telephone encounter Note Home Sleep Study; Auth approved through [employer] Auth#; [id number] Exp; 11.14.2022 Call; [phone] to schedule ECHO; Auth approved through [employer] Auth#; [id number] Exp; 11.11.2022 Call; [phone] to schedule [facility] 08-17-2022 Telephone encounter Note Unsure and suspect unlikely to get tests done before that appointment. Due to multiple factors, most of that testing can take a month or more to get done. Taking in the morning is fine. The dose may need increased to help bring that down. [facility] 08-17-2022 Telephone encounter Note S: Patient spoke with [facility] nurse regarding hypertension B: Onset of symptoms/concern couple weeks, high this morning A: Pt was seen last week for high BP. Was given lisinopril. Had an episode of difficulty walking overa week ago. Was seen at [facility] and BP was elevated at that time and was sent to the ED. He has been having some dizziness, vertigo, and nausea episodes in the mornings. It is not every morning, seem to occur mostly when under a lot of stress. Occasionally will have some balance issues during the day but most of the problems are in the morning. When he gets the vertigo episode in usually only lasts up to an hour. Denies headache, chest pain, sob or blurred vision. Has been eating. Went to breakfast and started to feel dizzy today. Took BP medication after eating. Took BP when got home was 178/100 with heart rate 61. 10 minute later retook 160/90. Took again when on phone with PAL, BP 156/69 with heart rate 58. The dizziness has since resolved. Pt is under a lot of stress - lost his on 2-15-23 - she had a hard time for about 18 months before passing - at least 3 strokes and several tia's. 3 siblings that are giving problems with 's estate - never actually but living together for 43 years. Pt has a heart murmer and supposed to have an ECHO on the heart. Pt states has not heard from the office regarding an appointment for the ECHO yet. Pt is supposed to be evaluated for a cpap and has not had that test yet. States was told should hear from Isabel in the office to schedule both ECHO and cpap. Pt asking if he should be taking the lisinopril at a different time. Usually takes after eating breakfast and has been up for a while. Pt is not diabetic. Wants to get everything done as soon as possible because he wants to get back to exercising daily. Pt has an appointment on 09-05-[address] Fallon. Would like to see if he can get the tests done before then. R: Pt is going to start taking the lisinopril when he first gets up in the morning. To call back if develop symptoms again or if BP is elevated. Patient understands care advice. Please contact pt at [phone] to set up ECHO and cpap testing. Instructed to call back with any further questions or concerns. Reason for Disposition Systolic BP >= 130 OR Diastolic >= 80, and is taking BP medications Protocols used: Blood Pressure - [id number] 08-15-2022 History of Present illness Narrative Images from the original note were not included. Podiatry Last PCP Visit and Provider: Office Visit 08/08/2022 [facility] Hadley Fallon MD Family Medicine Primary hypertension +4 more Dx ER Follow-up Reason for Visit Images from the original note were not included. VENESSA Tony, PA-C [facility] [address] [place] [address] Dept: [phone] Dept Patient: Patrice Joel : 1940 Date of Exam: 08/15/2022 Visit Type: Established Patient with Orthopedics; New to Provider Subjective 08/15/2022 Chief Complaint: Patrice Joel is a 82 y.o. male presenting to clinic for: fungal toenails - yellow thick lifted toenails on both feet, onset 10 years ago - toenails are catching on socks and are painful in shoe gear due to their size, some difficulty in walking as well - no podiatry care in the past - no associated sores or drainage - no treatment so far - reports difficulty trimming nails due to age related physical restrictions, additionally he is having balance/dizziness problems - he would like to discuss fungal nail treatments Objective Vital Signs: BP (!) 140/62 Pulse 55 Temp 36.2 C (97.2 F) Ht 6' 1 (1.854 m) Wt 236 lb (107 kg) BMI 31.14 kg/m ................................ ................................ ................................ ................................ ................................ ................................ ................................ ................................ ................ Focused Podiatric Physical Exam: Vascular Exam: Posterior Tibial pulse: present and palpable bilaterally. Dorsalis Pedis pulse: present and palpable bilaterally. Dermatologic Exam: Normal healthy skin appearance. Skin is dry to touch bilaterally. Web spaces are dry and intact. Toenails 1-10 are abnormal with severe degree of discoloration, elongation, and thickening. No overgrown callosities. No ulcerations present. 08/15/2022 Toenails post debridement Neurologic Exam: Bilateral lower extremity are sensate to light touch. Musculoskeletal Exam: Pes rectus foot. ................................ ................................ ................................ ................................ ................................ ................................ ................................ ................................ ................ Medical Record Review: The medications, problem list, allergies, and pertinent medical history were reviewed in the electronic chart. Assessment and Plan Assessment: Diagnosis Plan 1. Pain due to onychomycosis of toenails of both feet econazole nitrate 1 % cream 2. Age-related physical debility 3. Enlarged and hypertrophic nails [facility] Orthoped[facility] Podiatry Plan: Fungal nails, chronic stable Together we discussed etiology of fungal infection, fungal resistance to treatment, treatment options, and r/b/a of each medication. Emphasized the varying degree of results seen with prescription fungal treatments, and the need to be consistent with usage for best results. Realistic expectations were set. Reviewed fungal preventative foot care. He would like to avoid risk of liver inflammation with oral medications. Start econazole cream. Procedure: Toenail Debridement Toenails 1 through 10 were debrided with nail nippers and nail file in thickness and in length without incident. The nails were debrided to reduce pain and pressure in shoe gear. Dystrophic nails are at risk for subungual ulceration due to shear forces. ................................ ................................ ................................ ................................ ................................ ................................ ................................ ................................ ................ Complexity: reviewed referral note Risk: mod - prescription Follow Up: 3mo nail care Patrice was seen and examined during the visit today. Together we discussed the main issues affecting him and the plan going forward. Patrice verbalized understanding and agreement to the plan. Patrice was advised to read the AVS. Lastly, he was instructed to contact myself via [employer] or call the office with any questions or concerns. Matthew Perez PA-C documented in this encounter [facility] 08-09-2022 Miscellaneous Notes His lab work shows a very mildly low TSH. This usually means that he has hyperactive thyroid. That being said it is very close to normal. It would be reasonable to repeat this in approximately 1 month to see if it is continuing to downtrend. This may have been thrown off any number of things. Cholesterol looked overall good. documented in this encounter [facility] 08-09-2022 Progress note Formatting of t his note might be different from the original. His lab work shows a very mildly low TSH. This usually means that he has hyperactive thyroid. That being said it is very close to normal. It would be reasonable to repeat this in approximately 1 month to see if it is continuing to downtrend. This may have been thrown off any number of things. Cholesterol looked overall good. [facility] 08-08-2022 History of Present illness Narrative Images from the original note were not included. [facility] [address] [facility] [address] Visit type: Established Patient Reason for Visit: ER Follow-up (Hypertension, dizziness, [facility] [place], had labs and MRI) Assessment and Plan Patrice was seen today for er follow-up. Diagnoses and all orders for this visit: Primary hypertension - Home sleep test; Future - lisinopril 10 MG tablet; Take 1 tablet (10 mg) by mouth daily. - TSH; Future - Lipid panel; Future - TSH - Lipid panel Dizziness and giddiness Observed sleep apnea - Home sleep test; Future Enlarged and hypertrophic nails - [facility] Orthopedics Podiatry; Future Newly recognized murmur - Transthoracic echocardiogram (TTE) limited with contrast, bubble, strain, and 3D PRN; Future - perflutren lipid microspheres (Definity) injection 1.65 mg Given his symptoms and the fact that he has still significant hypertension I am recommending that we start lisinopril in the hopes of bringing this down. They expressed concern over sleep apnea and would like to test for this which I think is reasonable as that may explain the hypertension. The murmur is new which may also explain the dizziness. I need to get an echo to evaluate. On this date, 08/08/2022 I have spent 41 minutes reviewing previous notes, test results and face to face with the patient discussing the diagnosis and importance of compliance with the treatment plan as well as documenting on the day of the visit. Follow up in about 4 weeks (around 09/05/2022) for Hypertension. Subjective HPI Patrice Joel presented to the office for follow-up on an ER visit. He was in seen in the ER 08/05/2022 secondary to having dizziness and presented there with significant hypertension. He had labs and a CT while there which demonstrated no specific abnormalities or acute changes that required emergent intervention. He continues to have intermittent dizziness though his blood pressure has come down some since that day. He also notes that they recognize a murmur in the ER. He cannot recall if he has had a murmur or not before. While in the office his daughter was on the phone and expressed concerns over his thickened nails. Snore- do you snore loudly? No-0 Tired- do you often feel tired, fatigued, or sleepy during the day? No-0 Observed- has anyone ever seen you stop breathing during your sleep? Yes-1 Pressure- do you have or are you being treated for high blood pressure? Yes-1 BMI > 35 kg/m2? No-0 Age > 50 yrs old? Yes-1 Neck circumference > 16 in/ 40cm? (ask shirt collar size) Yes-1 Gender male? Yes-1 1 point each High risk of BALTAZAR: 5- 8 points Intermediate risk of BALTAZAR: 3- 4 points Low risk of BALTAZAR: 0- 2 points Review of Systems Constitutional: Negative for activity change, appetite change and fatigue. Respiratory: Negative for cough and shortness of breath. Cardiovascular: Negative for chest pain and leg swelling. Gastrointestinal: Negative for abdominal pain, constipation, diarrhea, nausea and vomiting. Genitourinary: Negative for frequency. Neurological: Positive for dizziness. All other systems reviewed and are negative. Allergies Allergen Reactions Morphine Anaphylaxis, Rash and Itching Other reaction(s): Other: See Comments, Other: See Comments convulsions Outpatient Medications Prior to Visit Medication Sig Dispense Refill MAGNESIUM PO Take by mouth. UNABLE TO FIND Med Name: nitric oxide support No facility-administered medications prior to visit. History reviewed. No pertinent past medical history. Social History Socioeconomic History Marital status: Tobacco Use Smoking status: Former Types: Cigarettes Quit date: 02/04/1990 Years since quittin.5 Smokeless tobacco: Never Vaping Use Vaping Use: Never used Substance and Sexual Activity Alcohol use: Yes Comment: half of a glass of wine with dinner Drug use: Never Past Surgical History: Procedure Laterality Date TOTAL HIP ARTHROPLASTY Past Surgical History: Procedure Laterality Date TOTAL HIP ARTHROPLASTY Family History Problem Relation Name Age of Onset Cancer Mother Other (95[address]) Brother No Known Problems Daughter Objective BP (!) 154/82 Pulse 74 Ht 6' 1 (1.854 m) Wt 236 lb (107 kg) SpO2 99% BMI 31.14 kg/m Physical Exam Vitals and nursing note reviewed. Constitutional: Appearance: Normal appearance. HENT: Head: Normocephalic and atraumatic. Cardiovascular: Rate and Rhythm: Normal rate and regular rhythm. Pulses: Normal pulses. Heart sounds: Murmur heard. Systolic murmur is present with a grade of 3/6. Pulmonary: Effort: Pulmonary effort is normal. Breath sounds: Normal breath sounds. No wheezing or rhonchi. Abdominal: General: Abdomen is flat. Bowel sounds are normal. Palpations: Abdomen is soft. Tenderness: There is no abdominal tenderness. Skin: General: Skin is warm and dry. Neurological: General: No focal deficit present. Mental Status: He is alert. Mental status is at baseline. Data Reviewed Labs: Imaging/Testing: Chart Clean Up: There are no discontinued medications. Hadley Fallon MD 08/10/2022 10:56 PM documented in this encounter [facility] 05-28-2022 Instructions Letty Shen APRN.[facility] - 05/28/2022 5:49 PM EST 05/28/22 02/05/22 BP 153/87 153/92 Pulse 64 60 Resp 16 18 Temp -- -- SpO2 100 % 98 % Weight 106.1 kg (234 lb) 119.3 kg (263 lb) Height -- 188 cm (6' 2) (R03.0) Elevated blood pressure reading (primary encounter diagnosis) Plan: Unable to see blood pressure from primary care. Today reported readings and in office are consistent with previous Express [facility] visit. Unable to do EKG and lab work and fully workup hypertension in Express Care. However, patient appears well, no distress, vitals are stable, and denies any symptoms currently in office. Strict ER precautions and follow up with primary care. -Make follow up with primary care for monitoring and resolution in symptoms, call tomorrow for in office blood pressure recheck with primary care. -Signs that warrant an ER evaluation: Sudden change/worsening in condition, dizziness, lethargy, signs of dehydration, fever greater than 102 F that is not responding to Tylenol or ibuprofen (Motrin, Advil), drooling, difficulty swallowing, difficulty breathing, shortness of breath, chest pain, evidence of airway compromise (tripod position, neck extension, retractions), seizures, changes in mental status, or other concerns. documented in this encounter [facility] 05-28-2022 History of Present illness Narrative This note was created using [employer]. Subjective Patrice Joel is a 82 year old male. HPI by patient: Patrice Joel is a 82 year old presenting to the office with the complaint of high blood pressure. CC: (Sxs for high 153/72, and 145/70, was last reading's) Just noted today. Takes his blood pressure when I can find it. Usually checks 1 time/day. Had a neighbor checked his blood pressure. Associated symptoms include nothing right now. States he was dizzy earlier but not now. is in the senior care, actively passing. Denies shortness of breath, headache now, chest pain, dizziness now, change in vision, uri symptoms, and fever. States I didn't even want to come in. His neighbor who is an RN made him come in. OTC asa. ALLERGIES Morphine Itching, Other: See Comments Comment:convulsions Family History Reviewed Including Cardiac Diseases, Psychiatric Diseases, & Substance Abuse Problem: Breast Cancer Relation: Mother Age of Onset: (Not Specified) Problem: other (CHF) Relation: Mother Age of Onset: (Not Specified) Problem: other (Colon polyps) Relation: Father Age of Onset: (Not Specified) Problem: other (Colon polyps) Relation: Sister Age of Onset: (Not Specified) Problem: Colon Cancer Relation: Brother Age of Onset: (Not Specified) Problem: other (Colon polyps) Relation: Brother Age of Onset: (Not Specified) Social History Tobacco Use Smoking status: Former Packs/day: 3.00 Years: 15.00 Pack years: 45 Types: Cigarettes Quit date: 12/09/1989 Years since quittin.4 Smokeless tobacco: Never Alcohol use: Yes Comment: Occasionally Drug use: Never Active Ambulatory Problems S/P prosthetic total arthroplasty of the hip Date Noted: 05/16/2010 Hip pain Date Noted: 08/03/2010 Knee pain Date Noted: 12/09/2012 Low back pain Date Noted: 11/21/2017 Decreased ROM of lumbar spine Date Noted: 11/21/2017 Spinal stenosis of lumbar region Date Noted: 12/08/2017 Status post left hip replacement Date Noted: 12/08/2017 Status post right hip replacement Date Noted: 12/08/2017 Resolved Ambulatory Problems No Resolved Ambulatory Problems Past Medical History: No date: Anemia No date: Benign prostate hyperplasia No date: Black stool No date: Cataract No date: Diverticulosis No date: Dysphagia No date: Esophagitis No date: FHx: colon cancer No date: Gastritis with bleeding No date: Hiatal hernia No date: History of colon polyps No date: Rectal bleeding No date: Rheumatoid arthritis(714.0) Review of Systems Constitutional: Negative. HENT: Negative. Eyes: Negative. Respiratory: Negative. Cardiovascular: Negative. Gastrointestinal: Negative. Endocrine: Negative. Genitourinary: Negative. Musculoskeletal: Negative. Skin: Negative. Neurological: Positive for dizziness (this morning, this evening, but not now) and headaches (has had but not now). Objective BP 153/87 Pulse 64 Resp 16 Wt 106.1 kg (234 lb) SpO2 100% BMI 30.04 kg/m Physical Exam Vitals reviewed. Constitutional: General: He is not in acute distress. Appearance: He is not ill-appearing, toxic-appearing or diaphoretic. HENT: Right Ear: Tympanic membrane, ear canal and external ear normal. Left Ear: Tympanic membrane, ear canal and external ear normal. Cardiovascular: Rate and Rhythm: Normal rate and regular rhythm. Pulmonary: Effort: Pulmonary effort is normal. Breath sounds: Normal breath sounds. Psychiatric: Behavior: Behavior is cooperative. Assessment and Plan 05/28/22 02/05/22 BP 153/87 153/92 Pulse 64 60 Resp 16 18 Temp -- -- SpO2 100 % 98 % Weight 106.1 kg (234 lb) 119.3 kg (263 lb) Height -- 188 cm (6' 2) (R03.0) Elevated blood pressure reading (primary encounter diagnosis) Plan: Unable to see blood pressure from primary care. Today reported readings and in office are consistent with previous Express Care visit. Unable to do EKG and lab work and fully workup hypertension in Express Care. However, patient appears well, no distress, vitals are stable, and denies any symptoms currently in office. Strict ER precautions and follow up with primary care. -Make follow up with primary care for monitoring and resolution in symptoms, call tomorrow for in office blood pressure recheck with primary care. -Signs that warrant an ER evaluation: Sudden change/worsening in condition, dizziness, lethargy, signs of dehydration, fever greater than 102 F that is not responding to Tylenol or ibuprofen (Motrin, Advil), drooling, difficulty swallowing, difficulty breathing, shortness of breath, chest pain, evidence of airway compromise (tripod position, neck extension, retractions), seizures, changes in mental status, or other concerns. The patient will pursue further outpatient evaluation with the primary care physician or another Urgent Care/Express Care as outlined in the after visit summary. The patient is agreeable to this plan of care and follow-up instructions have been explained in detail. The patient has received these instructions in written format and have expressed an understanding of the after visit summary. Medical Decision Making: Level: 3 - Low I spent a total of 20 minutes on the date of the service which included preparing to see the patient, [id number] patient care, completing clinical documentation, obtaining and/or reviewing separately obtained history, performing a medically appropriate examination, counseling and educating the patient/family/caregiver, and ordering medications, tests, or procedures. documented in this encounter [facility] 08-28-2020 Hospital Discharge instructions Alex Nair MD - 08/28/2020 Remove packing as I showed how tomorrow morning, recheck with your doctor and return if any worsening problems would occur including recurrent bleeding or any bleeding anyplace else. The following attachments cannot be sent through Care Everywhere.Nosebleeds (Somali)documented in this encounter [facility] Work Phone: Evaluation note Diagnosis Acute anterior epistaxis- Primary documented in this encounter [facility] Work Phone: Evaluation note* Diagnosis Epistaxis- Primary documented in this encounter [facility] Work Phone: Evaluation note* Diagnosis Injury of left knee, initial encounter documented in this encounter [facility] Work Phone: Evaluation note* Diagnosis Elevated blood pressure reading- Primary Elevated blood pressure reading without diagnosis of hypertension [facility] Diagnosis Primary hypertension- Primary Unspecified essential hypertension Dizziness and giddiness Observed sleep apnea Enlarged and hypertrophic nails Newly recognized murmur [facility] Diagnosis Pain due to onychomycosis of toenails of both feet- Primary Age-related physical debility Enlarged and hypertrophic nails [facility] Diagnosis Primary hypertension- Primary Unspecified essential hypertension Elevated TSH Other abnormal blood chemistry [facility] Diagnosis Primary hypertension- Primary Unspecified essential hypertension Dizziness Dizziness and giddiness [facility] Diagnosis Essential (primary) hypertension- Primary Unspecified essential hypertension [facility] Diagnosis Routine general medical examination at health care facility- Primary Routine general medical examination at a health care facility Primary hypertension Unspecified essential hypertension Elevated PSA Elevated prostate specific antigen (PSA) Vaccine refused by patient [facility] Diagnosis Other specified abnormal findings of blood chemistry- Primary [facility] Diagnosis Elevated PSA, between 10 and less than 20 ng/ml- Primary [facility] Diagnosis Puncture wound of left index finger- Primary Localized erythema Unspecified erythematous condition Visit for wound check Encounter for other specified aftercare [facility] Diagnosis Bilateral impacted cerumen- Primary Impacted cerumen [facility] Diagnosis Periprosthetic fracture of proximal end of femur documented in this encounter [facility] Work Phone: Evaluation note* Diagnosis Periprosthetic fracture of proximal end of femur- Primary Periprosthetic fracture of proximal end of femur documented in this encounter [facility] Work Phone: Evaluation note* Diagnosis Periprosthetic fracture of proximal end of femur documented in this encounter [facility] Work Phone: Evaluation note* Diagnosis 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, initial encounter (Multi)- Primary documented in this encounter [facility] Work Phone: Evaluation note* Diagnosis Periprosthetic fracture of proximal end of femur- Primary Periprosthetic fracture of proximal end of femur Closed fracture of left femur, unspecified fracture morphology, unspecified portion of femur, initial encounter Closed fracture of left femur, unspecified fracture morphology, unspecified portion of femur, initial encounter Murmur Undiagnosed cardiac murmurs documented in this encounter [facility] Work Phone: Hospital Discharge instructions* Attachments The following attachments cannot be sent through Care Everywhere. * Nosebleeds ([place]i) [facility] Reason for referral (narrative)* Consultation (Routine) - Pending Review Specialty Diagnoses / Procedures Referred By Contac t Referred To Contact Urology Diagnoses Elevated PSA, between 10 and less than 20 ng/ml Procedures GA OFFICE/OUTPATIENT NEW HIGH MDM 60-74 MINUTES Hadley Fallon MD [facility] [address] [place] [address] [facility] [address] [place] [address] Referral ID Status Reason Start Date Expiration Date Visits Requested Visits Authorized [id number] Pending Review Specialty Services Required 12/24/2022 12/24/2023 1 1 [facility] for visit Narrative* Imaging (Routine) - Pending Review Specialty Diagnoses / Procedures Referred By Contac t Referred To Contact Radiology Diagnoses Periprosthetic fracture of proximal end of femur Procedures XR pelvis 1-2 views XR pelvis 1-2 views Michelle Bragg PA-C [id number] Department [place] [address] Phone: tel: fax: Referral ID Status Reason Start Date Expiration Date Visits Requested Visits Authorized [id number] Pending Review Perform Procedure 04/16/2024 04/16/2025 1 1 [facility] Work Phone: Reason for visit Narrative* Imaging (Routine) - Pending Review Specialty Diagnoses / Procedures Referred By Carol van Referred To Contact Radiology Diagnoses Periprosthetic fracture of proximal end of femur Procedures XR femur left 2+ views XR femur left 2+ views Michelle Bragg PA-C [id number] [place] [address] Phone: tel: fax: Referral ID Status Reason Start Date Expiration Date Visits Requested Visits Authorized [id number] Pending Review Perform Procedure 04/16/2024 04/16/2025 1 1 [facility] Work Phone: Summary Purpose Family History No Family History Records FoundNo Family History Records FoundNo Family History Records FoundNo Family History Records FoundNo Family History Records FoundNo Family History Records FoundNo Family History Records FoundNo Family History Records FoundNo Family History Records FoundNo Family History Records Found Advance Directives Documents on File Type Date Recorded 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 ACP-Advance Directive ACP-Power of Orthodontic Laboratory Technician Documents on File Type Date Recorded 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 ACP-Advance Directive ACP-Power of Orthodontic Laboratory Technician Date Activated Date Inactivated Comments 01/30/2024 4:39 PM Question Answer Comments Plan of Care: Code Status Discussion Completed Decision Maker: Patient Date Activated Date Inactivated Comments 01/27/2024 10:57 PM 01/30/2024 4:39 PM Question Answer Comments Plan of Care: Code Status Discussion Not Compl eted Decision Maker: Provider Rationale: Patient condition does not warra nt discussion Date Activated Date Inactivated Comments 01/30/2024 4:39 PM Question Answer Comments Plan of Care: Code Status Discussion Completed Decision Maker: Patient Date Activated Date Inactivated Comments 01/27/2024 10:57 PM 01/30/2024 4:39 PM Question Answer Comments Plan of Care: Code Status Discussion Not Compl eted Decision Maker: Provider Rationale: Patient condition does not warra nt discussion Reason for Referral Status Reason Specialty Diagnoses / Procedures Referred By Contact Referred To Contact Open Specialty Services Required Orthopedic Surgery Diagnoses Closed fracture of right foot, initial encounter Alex Nair MD [address] [place] [address] Afl Spi Ort [facility] [id number] [place] [id number] Scheduling Instructions [facility] [place] [address] Specialty Diagnoses / Procedures Referred By Carol van Referred To Contact Cardiology Diagnoses Newly recognized murmur Procedures Transthoracic echocardiogram (TTE) limited with contrast, bubble, strain, and 3D PRN GA ECHO TRANSTHORC R-T 2D W/WO M-MODE REC F-UP/LMTD GA DOP ECHOCARD PULSE WAVE W/SPECTRAL F-UP/LMTD STD GA DOP ECHOCARD COLOR FLOW VELOCITY MAPPING GA 2D TTE W OR W/O FOL W/CON,FU Hadley Fallon MD [address] [place] [address] [address] [place] [address] Referral ID Status Reason Start Date Expiration Date Visits Requested Visits Authorized [id number] Pending Review Perform Procedure 08/08/2022 02/04/2023 1 1 Specialty Diagnoses / Procedures Referred By Carol t Referred To Contact Podiatry Diagnoses Enlarged and hypertrophic nails Procedures GA OFFICE/OUTPATIENT NEW HIGH MDM 60-74 MINUTES Hadley Fallon MD [facility] [address] [place] [address] Matthew Perez PA-C 1 [facility] [address] [place] [address] Referral ID Status Reason Start Date Expiration Date Visits Requested Visits Authorized [id number] Pending Review Specialty Services Required 08/08/2022 08/08/2023 1 1 Specialty Diagnoses / Procedures Referred By Contac t Referred To Contact Sleep Medicine Diagnoses Primary hypertension Observed sleep apnea Procedures Home sleep test Hadley Fallon MD [address] [facility] [address] [place] [address] Referral ID Status Reason Start Date Expiration Date V isits Requested Visits Authorized [id number] Pending Review 08/08/2022 02/04/2023 1 1 Specialty Diagnoses / Procedures Referred By Contac t Referred To Contact Radiology Diagnoses Periprosthetic fracture of proximal end of femur Procedures XR femur left 2+ views Michelle Bragg PA-C [address] [address] [place] [id number] Referral ID Status Reason Start Date Expiration Date Visits Requested Visits Authorized [id number] Authorized Perform Procedure 02/18/2024 02/17/2025 1 1 Specialty Diagnoses / Procedures Referred By Contac t Referred To Contact Radiology Diagnoses Periprosthetic fracture of proximal end of femur Procedures XR pelvis 1-2 views Michelle Bragg PA-C [address] [address] [place] [id number] Referral ID Status Reason Start Date Expiration Date Visits Requested Visits Authorized [id number] Authorized Perform Procedure 02/18/2024 02/17/2025 1 1 Discharge Instructions * Instructions* Alex Nair MD - 01/30/2020 Ice elevate crutches, splint was placed and should be nonweightbearing, mandatory orthopedic follow-up please see orthopedist if you cannot get in to see them follow-up with our orthopedic referral. Return to the Emergency Room of his increasing pain and swelling numbness tingling or any worsening problems at all. * Attachments The following attachments cannot be sent through Care Everywhere. * Foot Fracture (Somali) documented in this encounter Assessments Diagnosis Closed fracture of right foot, initial encounter Additional Source Comments (unrecognized sect ion and content) No Status Records FoundNo Status Records FoundNo Status Records FoundNo Status Records FoundNo Status Records FoundNo Status Records FoundNo Status Records FoundNo Status Records FoundNo Status Records FoundNo Status Records Found INFORMATION SOURCE (unrecogn ized section and content) DATE CREATED AUTHOR 12/06/2017 [facility] DATE CREATED AUTHOR AUTHOR'S ORGANIZ ATION 09/09/2020 [facility] DATE CREATED AUTHOR AUTHOR'S ORGANIZ ATION 12/04/2021 [facility] DATE CREATED AUTHOR AUTHOR'S ORGANIZ ATION 01/04/2024 [facility] DATE CREATED AUTHOR AUTHOR'S ORGANIZ ATION 01/09/2024 [facility] DATE CREATED AUTHOR AUTHOR'S ORGANIZ ATION 01/29/2024 [facility] DATE CREATED AUTHOR AUTHOR'S ORGANIZ ATION 02/09/2024 [facility] DATE CREATED AUTHOR AUTHOR'S ORGANIZ ATION 02/24/2024 [facility] DATE CREATED AUTHOR AUTHOR'S ORGANIZ ATION 03/06/2024 [facility] DATE CREATED AUTHOR AUTHOR'S ORGANIZ ATION 04/22/2024 [facility] Reason for Visit (unrecogniz ed section and content) Reason Comments Foot Pain Reason Comments Epistaxis Reason Comments Epistaxis R nare Reason Comments blood pressure Sxs for high 153/72, and 145/70, was last reading's Reason Comments ER Follow-up Hypertension, dizzin ess, deandrea Emily, had labs and MRI Reason Comments 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 [place] [address] Matthew Perez PA-C 1 [facility]. [address] [place] [address] Referral ID Status Reason Start Date Expiration Date V isits Requested Visits Authorized [id number] Closed Specialty Services Required 08/08/2022 08/08/2023 1 1 Reason Onset Date Comments Hypertension 08/17/2022 Reason Comments Hypertension Reason Comments Dizziness Experiencing dizzine ss, thinks its the lisinopril, will get dizzy sometimes after eating, went to ER and they could not determine the cause. Also having headaches, front and back, stiffness in neck and shoulders. Reason Comments Medicare Annual Wellness Visit Subsequen t Reason Onset Date Comments Results 12/24/2022 Reason Onset Date Comments Orders 01/03/2023 Reason Comments Finger Pain L index digit pain x 2 days ; L cheek incision x 1 week Reason Comments Piece of Q-tip in right ear PT was takin g a shower and cleaned ears with a q- tip, pt states that a q-tip broke off in right ear, Pt wears hearing aids Reason Onset Date Comments Drooling 01/07/2024 Specialty Diagnoses / Procedures Referred By Carol van Referred To Contact Radiology Diagnoses Periprosthetic fracture of proximal end of femur Procedures XR femur left 2+ views Michelle Bragg PA-C [address] [facility] Department [place] [address] Referral ID Status Reason Start Date Expiration Date Visits Requested Visits Authorized [id number] Authorized Perform Procedure 02/18/2024 02/17/2025 1 1 Reason Comments Follow-up femur Reason Comments Hip Pain Left hip/leg pain Reason Comments Fall Hip Pain Specialty Diagnoses / Procedures Referred By Carol t Referred To Contact Diagnoses Closed fracture of left femur, unspecified fracture morphology, unspecified portion of femur, initial encounter hip fracture Procedures No [place] [address] [place] [address] [facility] [place] [address] [place] [address] Referral ID Status Reason Start Date Expiration Date Visits Re quested Visits Authorized [id number] 1 1 Ordered Prescriptions (unrec ognized section and content) Prescription Sig Dispensed Refills Start Date End Da te amoxicillin (AMOXIL) 500 MG capsule Take 1 capsule by mouth 3 times daily for 7 days 21 capsule 0 09/01/2020 09/08/2020 Care Teams (unrecognized sec tion and content) Information Systems Specialist Relationship Specialty Start Date End Date Hadley Fallon MD [address] [place] [address] PCP - General Family Medicine 10/27/21 Information Systems Specialist Relationship Specialty Start Date End Date Dalton Graham MD [address] [facility] [address] [place] [address] PCP - General Internal Medicine 12/30/18 Information Systems Specialist Relationship Specialty Start Date End Date Hadley Fallon MD [address] [facility] [address] [place] [address] PCP - General 10/27/21 Information Systems Specialist Relationship Specialty Start Date End Date Hadley Fallon MD [address] [facility] [address] [place] [address] PCP - General 10/27/21 Information Systems Specialist Relationship Specialty Start Date End Date Hadley Fallon MD [address] [facility] [address] [place] [address] PCP - General 10/27/21 Information Systems Specialist Relationship Specialty Start Date End Date Hadley Fallon MD [address] [facility] [address] [place] [address] PCP - General 10/27/21 Information Systems Specialist Relationship Specialty Start Date End Date Hadley Fallon MD [address] [facility] [address] [place] [address] PCP - General 10/27/21 Information Systems Specialist Relationship Specialty Start Date End Date Hadley Fallon MD [address] [place] [address] PCP - General 10/27/21 Information Systems Specialist Relationship Specialty Start Date End Date Hadley Fallon MD [address] [place] [address] PCP - General 10/27/21 Information Systems Specialist Relationship Specialty Start Date End Date Hadley Fallon MD [address] [place] [address] PCP - General 10/27/21 Information Systems Specialist Relationship Specialty Start Date End Date Hadley Fallon MD [address] [place] [address] PCP - General 10/27/21 Information Systems Specialist Relationship Specialty Start Date End Date Hadley Fallon MD [address] [place] [address] PCP - General 10/27/21 Information Systems Specialist Relationship Specialty Start Date End Date Hadley Fallon MD [address] [place] [address] PCP - General 10/27/21 Information Systems Specialist Relationship Specialty Start Date End Date Hadley Fallon MD [address] [place] [address] PCP - General 10/27/21 Information Systems Specialist Relationship Specialty Start Date End Date Hadley Fallon [address] [place] [address] PCP - General Family Medicine 02/19/23 Information Systems Specialist Relationship Specialty Start Date End Date Hadley Fallon MD [address] [place] [address] [place] [address] PCP - General Family Medicine 02/19/23 Information Systems Specialist Relationship Specialty Start Date End Date Hadley Fallon MD [facility] [address] [address] PCP - General 10/27/21 Information Systems Specialist Relationship Specialty Start Date End Date Generic Provider, [place] [address] PCP - General Ciso 01/27/24 Information Systems Specialist Relationship Specialty Start Date End Date Generic Provider, No [place] [address] PCP - General Ciso 01/27/24 Information Systems Specialist Relationship Specialty Start Date End Date Generic Provider, No [place] [address] PCP - General Ciso 01/27/24 Information Systems Specialist Relationship Specialty Start Date End Date Generic Provider, No [place] [address] PCP - General Ciso 01/27/24 Source Comments (unrecognize d section and content) In the event this informatio n is protected by the Federal Confidentiality of Alcohol and Drug Abuse Patient Records regulations: The Federal rules restrict any use of the information to criminally investigate or prosecute any alcohol or drug abuse patient.[facility] the event this information is protected by the Federal Confidentiality of Alcohol and Drug Abuse Patient Records regulations: The Federal rules restrict any use of the information to criminally investigate or prosecute any alcohol or drug abuse patient.[facility] the event this information is protected by the Federal Confidentiality of Alcohol and Drug Abuse Patient Records regulations: The Federal rules restrict any use of the information to criminally investigate or prosecute any alcohol or drug abuse patient.[facility] Scheduled Active and Recently Administ ered Medications (unrecognized section and content) Medication Order 01/25/2024 01/26/2024 01/27/2024 fentaNYL PF (Sublimaze) injection 50 mcg (COMPLETED) 50 mcg, intravenous, Once, On Sat01/27/24 at 1715, For 1 dose 1720 (Given - Provid er: Arianna Menard RN) ondansetron ODT (Zofran-ODT) disintegrating tablet 4 mg (COMPLETED) 4 mg, oral, Once, On Sat01/27/24 at 1105, For 1 dose 1134 (Given - Provid er: Arianna Menard RN) oxyCODONE-acetaminophen (Percocet) 5-325 mg per tablet 1 tablet (COMPLETED) 1 tablet, oral, Once, On Sat01/27/24 at 1105, For 1 dose, If ordered PRN for pain, nurse is permitted to administer this medication for higher pain scores based on patient preference? Yes 1134 (Given - Provid er: Arianna Menard RN) Scheduled Medication Order 02/02/2024 02/03/2024 02/04/2024 acetaminophen (Tylenol) tablet 975 mg 975 mg, oral, Every 8 hours scheduled, First dose (after last modification) on Sat01/28/24 at 2200, If ordered PRN for pain, nurse is permitted to administer this medication for higher pain scores based on patient preference? Yes 0121 (Given - Provider: Josefina Telles RN)0927 (Given - Provider: Sherrell Topete, JAI)1646 (Given - Provider: Johanna Hanks RN) 0134 (Given - Provider: Nunu Soto RN)1001 (Given - Provider: Lucy Mckeon RN)1841 (Given - Provider: Beth Page RN) 0131 (Given - Provider: Nati Sigala RN)0824 (Given - Provider: Lucy Mckeon RN)1730 (Due - Provider: Yolanda Laws, [employer]) bisacodyl (Dulcolax) suppository 10 mg 10 mg, rectal, Daily, First dose on Sat02/01/24 at 1615 0829 (Not Given - Provider: Sherrell Topete RN - Reason: Patient/family refused) 1002 (Given - Provider: Lucy Mckeon RN) 0823 (Given - Provider: Lucy Mckeon RN) enoxaparin (Lovenox) syringe 30 mg 30 mg, subcutaneous, Every 12 hours, First dose on Sat01/27/24 at 2300 1025 (Given - Provider: Sherrell Topete RN)2337 (Given - Provider: Nunu Soto RN) 100 (Given - Provider: Lucy Mckeon RN)213 (Given - Provider: Nati Sigala RN) 0823 (Given - Provider: Lucy Mckeon RN)2100 (Due - Provider: Jessi Eaton, [employer]) magnesium hydroxide (Milk of Magnesia) 400 mg/5 mL suspension 30 mL 30 mL, oral, Daily, First dose (after last modification) on Sat02/03/24 at 1345, Follow administration with 8 ounces of water. 1442 (Given - Provider: Lucy Mckeon RN) 0823 (Given - Provider: Lucy Mckeon RN) polyethylene glycol (Glycolax, Miralax) packet 17 g 17 g, oral, 2 times daily, First dose (after last modification) on Sat01/31/24 at 2100, Bowel Regimen - for prevention of constipation. 0826 (Given - Provider: Sherrell Topete RN)2012 (Given - Provider: Johanna Hanks RN) 1001 (Given - Provider: Lucy Mckeon RN)213 (Given - Provider: Nati Sigala RN) 0823 (Given - Provider: Lucy Mckeon RN)2100 (Due) sennosides (Senokot) tablet 8.6 mg 8.6 mg (1 tablet), oral, 2 times daily, First dose on Sat01/28/24 at 1415 0826 (Given - Provider: Sherrell Topete, JAI)2012 (Given - Provider: Johanna Hanks, RN) 1001 (Given - Provider: Lucy Mckeon, RN)2136 (Given - Provider: Nati Sigala, JAI) 0823 (Given - Provider: Lucy Mckeon, RN)2100 (Due) PRN Medication Order 02/02/2024 02/03/2024 02/04/2024 calcium carbonate (Tums) chewable tablet 500 mg 500 mg, oral, 4 times daily PRN, indigestion, heartburn, Starting on Sat01/28/24 at 0101 guaiFENesin (Mucinex) 12 hr tablet 600 mg 600 mg, oral, 2 times daily PRN, cough, Starting on Sat02/01/24 at 0559, Administer with plenty of fluids to ensure proper action. Do not crush, chew, or split. ondansetron (Zofran) injection 4 mg 4 mg, intravenous, Every 4 hours PRN, nausea/vomiting, first line, Starting on Sat01/28/24 at 0339, When administering via IV Push, administer over 3-5 minutes. FOR RECORDS PERTAINING TO PATIENTS WHO ARE OR HAVE BEEN ENROLLED IN A CHEMICAL DEPENDENCY/SUBSTANCEABUSE PROGRAM, SOME INFORMATION MAY BE OMITTED. This clinical summary was aggregated from multiple sources. Caution should be exercised in using it in the provision of clinical care. This summary normalizes information from multiple sources, and as a consequence, information in this document may materially change the coding, format and clinical context of patient data. In addition, data may be omitted in some cases. CLINICAL DECISIONS SHOULD BE BASED ON THE PRIMARY CLINICAL RECORDS. [facility]. provides no warranty or guarantee of the accuracy or completeness of information in this document.
[2024-11-15 14:42] LABS: CORTISOL PM 20.80 ug/dL (2.68-10.50)
--- OUTSIDE RECORDS SUMMARY | 2024-11-15 14:49 | XMS RPT_ITS | CCD ---
Author Organization [facility] Care Team Providers Care Corsetier Name Role Phone WEINER, KANU A Unavailable Unavailable WEINER, KANU A Unavailable Unavailable WEINER, KANU A Unavailable Unavailable WEINER, KANU A Unavailable Unavailable WEINER, KANU A Unavailable Unavailable WEINER, KANU A Unavailable Unavailable Viky Fong Primary Care Provider Viky Fong MD Primary Care Provider Hadley Fallon MD Primary Care Provider Dalton Graham MD Primary Care Provider Hadley Fallon MD Primary Care Provider Hadley Fallon MD Primary Care Provider Hadley Fallon Primary Care Provider [phone] Hadley Fallon MD Primary Care Provider HADLEY FALLON Primary Care Unavailable DALTON GRAHAM Primary Care Unavailable Hadley Fallon MD Primary Care Provider [phone] DEZ HOOVER Referring Unavailable GENERIC PROVIDER, NO [...] 3 Itching, Other: See Comments, Anaphylaxis, Rash [facility] Other [place] Rep[facility] (10 sources) Codeine; Translations: [CODEINE] Drug Allergy 4 Anaphylaxis [facility] Medications Current Medications Medication Drug Class(es) Dates [...] Comment on above: Take 1 capsule by [facility] four times daily for 5 days. cholecalciferol, [...] 1105, For 1 dose polyethylene glycol 3350 82716 mg powder for oral solution (7 sources) [...] PO) Take by mouth 0 Active sennosides, mcfp 8.6 mg oral tablet (6 sources) Start: [...] INDICATION: Signs/Symptoms:pain. COMPARISON: February 18 ACCESSION NUMBER(S): [id number]; [id number] ORDERING CLINICIAN: MICHELLE BRAGG FINDINGS: Bilateral total hip arthroplasties are noted. Postsurgical changes status post ORIF of the left periprosthetic femoral fracture with a lateral plate. The femoral arthroplasty component normal without malalignment or new lucency. No evidence of complication. 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 Signed by: Sushil Mcclellan 04/17/2024 11:38 AM Dictation workstation: [id number] [facility] XR PELVIS 1-2 VIEWSon 2023 XR PELVIS 1-2 VIEWS Interpreted By: Sushil Harris, STUDY: XR PELVIS 1-2 VIEWS; XR FEMUR LEFT 2+ VIEWS INDICATION: Signs/Symptoms:pain. COMPARISON: February 18 ACCESSION NUMBER(S): [id number]; [id number] ORDERING CLINICIAN: MICHELLE BRAGG FINDINGS: Bilateral total hip arthroplasties are noted. Postsurgical changes status post ORIF of the left periprosthetic femoral fracture with a lateral plate. The femoral arthroplasty component normal without malalignment or new lucency. No evidence of complication. 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 Signed by: Sushil Mcclellan 04/17/2024 11:38 AM Dictation workstation: [id number] [facility] No Panel Informationon 02-19 Interpreted By: Mary White ud, STUDY: XR FEMUR LEFT 2+ VIEWS; XR PELVIS 1-2 VIEWS; 02/19/2024 3:20 pm INDICATION: Signs/Symptoms:post-op. COMPARISON: 01/27/2024 ACCESSION NUMBER(S): [id number]; [id number] ORDERING CLINICIAN: MICHELLE BRAGG FINDINGS: Status post [...] Mary Agustin 02/20/2024 7:44 PM Dictation workstation: [id number] Mary Gavin-Conrado Arambula MD - 02/20/2024 Interpreted By: Mary Agustin, STUDY: XR FEMUR LEFT 2+ VIEWS; XR PELVIS 1-2 VIEWS; 02/19/2024 3:20 pm INDICATION: Signs/Symptoms:post-op. COMPARISON: 01/27/2024 ACCESSION NUMBER(S): [id number]; [id number] ORDERING CLINICIAN: MICHELLE BRAGG FINDINGS: Status post [...] Mary Agustin 02/20/2024 7:44 PM Dictation workstation: [id number] [facility] Work Phone: No Panel InformationOrdered By: Alaina Agustin on 02-20-2024 [facility] Work Phone: No Panel Informationon 02-18 Radiology Study observation (narrative) [facility] Work Phone: XR FEMUR LEFT 2+ VIEWSon XR FEMUR LEFT 2+ VIEWS Interpreted By: Mary Agustin, STUDY: XR FEMUR LEFT 2+ VIEWS; XR PELVIS 1-2 VIEWS; 02/19/2024 3:20 pm INDICATION: Signs/Symptoms:post-op. COMPARISON: 01/27/2024 ACCESSION NUMBER(S): [id number]; [id number] ORDERING CLINICIAN: MICHELLE BRAGG FINDINGS: Status post [...] Mary Agustin 02/20/2024 7:44 PM Dictation workstation: [id number] [facility] XR PELVIS 1-2 VIEWSon 2023 XR PELVIS 1-2 VIEWS Interpreted By: Mary White ud, STUDY: XR FEMUR LEFT 2+ VIEWS; XR PELVIS 1-2 VIEWS; 02/19/2024 3:20 pm INDICATION: Signs/Symptoms:post-op. COMPARISON: 01/27/2024 ACCESSION NUMBER(S): [id number]; [id number] ORDERING CLINICIAN: MICHELLE BRAGG FINDINGS: Status post [...] Mary Agustin 02/20/2024 7:44 PM Dictation workstation: [id number] Normal [facility] Comment on above: Order Comment: WB AP pelvis CBC panel Auto (Bld)on 01-30 Erythrocyte distribution width (RBC) [Ratio] 13.0 % 11.5 - 14.5 % [facility] Hematocrit (Bld) [Volume fraction] 30.4 % Low 41.0 - 52.0 % [facility] Hemoglobin (Bld) [Mass/Vol] 9.9 g/dL Low 13.5 - 17.5 g/dL [facility] Interpretation and review of laboratory results Abnormal [facility] MCH (RBC) [Entitic mass] 29.1 pg 26.0 - 34.0 pg [facility] MCHC (RBC) [Mass/Vol] 32.6 g/dL 32.0 - 36.0 g/dL [facility] MCV (RBC) [Entitic vol] 89 fL 80 - 100 fL [facility] Nucleated RBC/100 WBC (Bld) [Ratio] 0.0 % [facility] Platelets (Bld) [#/Vol] 236 10*3/uL [facility] RBC (Bld) [#/Vol] 3.40 10*6/uL [facility] WBC (Bld) [#/Vol] 5.9 10*3/uL [facility] Erythrocyte distribution width (RBC) [Ratio] 13.0 % Normal 11.5-14.5 [facility] Comment on above: Performed By: #### V ERAB #### CARIN Webb ([id number]) [facility] ([facility]) [address] [place] [address] Hematocrit (Bld) [Volume fraction] 30.4 % Low 41.0-52.0 [facility] Comment on above: Performed By: #### Marybeth ERAB #### CARIN Webb ([id number]) [facility] ([facility]) [address] [place] [address] Hemoglobin (Bld) [Mass/Vol] 9.9 g/dL Low 13.5-17.5 [facility] Comment on above: Performed By: #### Marybeth ERAB #### CARIN Webb ([id number]) [facility] ([facility]) [address] [place] [address] MCH (RBC) [Entitic mass] 29.1 pg Normal 26.0-34.0 [facility] Comment on above: Performed By: #### Marybeth ERAB #### CARIN Webb ([id number]) [facility] ([facility]) [address] [place] [address] MCHC (RBC) [Mass/Vol] 32.6 g/dL Normal 32.0-36.0 [facility] Comment on above: Performed By: #### Marybeth ERAB #### CARIN Webb ([id number]) [facility] ([facility]) [address] [place] [address] MCV (RBC) [Entitic vol] 89 fL Normal 80-100 [facility] Comment on above: Performed By: #### Marybeth ERAB #### CARIN Webb ([id number]) [facility] ([facility]) [address] [place] [address] Nucleated RBC/100 WBC (Bld) [Ratio] 0.0 /100 WBCs Normal 0.0-0.0 [facility] Comment on above: Performed By: #### Marybeth ERAB #### CARIN Webb ([id number]) [facility] ([facility]) [address] [place] [address] Platelets (Bld) [#/Vol] 236 x10*3/uL Normal 150-450 [facility] Comment on above: Performed By: #### V ERAB #### CARIN Webb ([id number]) [facility] ([facility]) [address] [place] [address] RBC (Bld) [#/Vol] 3.40 x10*6/uL Low 4.50-5.90 [facility] Comment on above: Performed By: #### V ERAB #### CARIN Webb ([id number]) [facility] ([facility]) [address] [place] [address] WBC (Bld) [#/Vol] 5.9 x10*3/uL Normal 4.4-11.3 [facility] Comment on above: Performed By: #### V ERAB #### CARIN Webb ([id number]) [facility] ([facility]) [address] [place] [address] 25-hydroxyvitamin D3 [Mass/V ol]on 01-30-2024 Deficiency: < 20 ng /ml Insufficiency: 20-29 ng/ml Sufficiency: 30-100 ng/ml This assay accurately quantifies the sum of Vitamin D3, 25-Hydroxy and Vitamin D2,25-Hydroxy. [facility] Blood type and Indirect anti body screen panel (Bld)on 01-30-2024 ABO group Nom (Bld) A [facility] Blood group antibody screen Ql Negative [facility] D Ag Ql (Bld) Positive [facility] ABO group Nom (Bld) A Normal [facility] Comment on above: Performed By: #### V ERAB #### CARIN Webb ([id number]) [facility] ([facility]) [address] [place] [address] Blood group antibody screen Ql Negative Normal [facility] Comment on above: Performed By: #### V ERAB #### CARIN Webb ([id number]) [facility] ([facility]) [address] [place] [address] D Ag Ql (Bld) Positive Normal [facility] Comment on above: Performed By: #### V ERAB #### CARIN Webb ([id number]) [facility] ([facility]) [address] [place] [address] CBC panel Auto (Bld)on 01-29 Erythrocyte distribution width (RBC) [Ratio] 13.1 % 11.5 - 14.5 % [facility] Hematocrit (Bld) [Volume fraction] 29.9 % Low 41.0 - 52.0 % [facility] Hemoglobin (Bld) [Mass/Vol] 9.8 g/dL Low 13.5 - 17.5 g/dL [facility] Interpretation and review of laboratory results Abnormal [facility] MCH (RBC) [Entitic mass] 29.1 pg 26.0 - 34.0 pg [facility] MCHC (RBC) [Mass/Vol] 32.8 g/dL 32.0 - 36.0 g/dL [facility] MCV (RBC) [Entitic vol] 89 fL 80 - 100 fL [facility] Nucleated RBC/100 WBC (Bld) [Ratio] 0.0 % [facility] Platelets (Bld) [#/Vol] 219 10*3/uL [facility] RBC (Bld) [#/Vol] 3.37 10*6/uL Low [facility] WBC (Bld) [#/Vol] 5.7 10*3/uL [facility] Erythrocyte distribution width (RBC) [Ratio] 13.1 % Normal 11.5-14.5 [facility] Comment on above: Performed By: #### V ERAB #### CARIN Webb ([id number]) [facility] ([facility]) [address] [place] [address] Hematocrit (Bld) [Volume fraction] 29.9 % Low 41.0-52.0 [facility] Comment on above: Performed By: #### V ERAB #### CARIN Webb ([id number]) [facility] ([facility]) [address] [place] [address] Hemoglobin (Bld) [Mass/Vol] 9.8 g/dL Low 13.5-17.5 [facility] Comment on above: Performed By: #### Marybeth ERAB #### CARIN Webb ([id number]) [facility] ([facility]) [address] [place] [address] MCH (RBC) [Entitic mass] 29.1 pg Normal 26.0-34.0 [facility] Comment on above: Performed By: #### Marybeth ERAB #### CARIN Webb ([id number]) [facility] ([facility]) [address] [place] [address] MCHC (RBC) [Mass/Vol] 32.8 g/dL Normal 32.0-36.0 [facility] Comment on above: Performed By: #### Marybeth ERAB #### CARIN Webb ([id number]) [facility] ([facility]) [address] [place] [address] MCV (RBC) [Entitic vol] 89 fL Normal 80-100 [facility] Comment on above: Performed By: #### Marybeth ERAB #### CARIN Webb ([id number]) [facility] ([facility]) [address] [place] [address] Nucleated RBC/100 WBC (Bld) [Ratio] 0.0 /100 WBCs Normal 0.0-0.0 [facility] Comment on above: Performed By: #### Marybeth ERAB #### CARIN Webb ([id number]) [facility] ([facility]) [address] [place] [address] Platelets (Bld) [#/Vol] 219 x10*3/uL Normal 150-450 [facility] Comment on above: Performed By: #### Marybeth ERAB #### CARIN Webb ([id number]) [facility] ([facility]) [address] [place] [address] RBC (Bld) [#/Vol] 3.37 x10*6/uL Low 4.50-5.90 [facility] Comment on above: Performed By: #### V ERAB #### CARIN Webb ([id number]) [facility] ([facility]) [address] [place] [address] WBC (Bld) [#/Vol] 5.7 x10*3/uL Normal 4.4-11.3 [facility] Comment on above: Performed By: #### V ERAB #### CARIN Webb ([id number]) [facility] ([facility]) [address] [place] [address] Calcidiolon 01-30-2024 25-hydroxyvitamin D3 [Mass/Vol] 33 ng/mL Normal 30-100 [facility] Comment on above: Order Comment: Thi s is for confirming/verifying history of ABORh on file for transfusion of blood products. If this is not for transfusion, please order an ABO/RH [[id number]]. If you have any questions or unsure what to order, please call the blood bank. Performed By: #### V ERAB #### CARIN Webb ([id number]) [facility] ([facility]) [address] [place] [address] Cobalaminson 01-30-2024 Cobalamin (Vitamin B12) [Mass/Vol] 468 pg/mL Normal 211-911 [facility] Comment on above: Performed By: #### V ERAB #### CARIN Webb ([id number]) [facility] ([facility]) [address] [place] [address] No Panel Informationon 01-29 Interpretation and review of laboratory results Normal [facility] Renal function 2000 panelon 01-30-2024 Albumin BCP dye [Mass/Vol] 3.0 g/dL Low 3.4 - 5.0 g/dL [facility] Anion gap [Moles/Vol] 9 mmol/L Low 10 - 20 mmol/L [facility] Calcium [Mass/Vol] 8.5 mg/dL Low 8.6 - 10. 6 mg/dL [facility] Chloride [Moles/Vol] 99 mmol/L 98 - 10 7 mmol/L [facility] CO2 [Moles/Vol] 28 mmol/L 21 - 32 mmol/L [facility] Creatinine [Mass/Vol] 0.64 mg/dL 0.50 - 1.30 mg/dL [facility] eGFR - PINF [facility] Comment on above: Calculations of sebastien mated GFR are performed using the 2020 CKD-EPI Study Refit equation without the race variable for the IDMS-Traceable creatinine methods. https://jasn.asnjournals.org/content/early/ASN.9467697 988 Glucose [Mass/Vol] 94 mg/dL 74 - 99 mg/dL [facility] Interpretation and review of laboratory results Abnormal [facility] Phosphate [Mass/Vol] 2.9 mg/dL 2.5 - 4 .9 mg/dL [facility] Comment on above: The performance tripp acteristics of phosphorus testing in heparinized plasma have been validated by the individual laboratory site where testing is performed. Testing on heparinized plasma is not approved by the FDA; however, such approval is not necessary. Potassium [Moles/Vol] 4.3 mmol/L 3.5 - 5.3 mmol/L [facility] Sodium [Moles/Vol] 132 mmol/L Low 136 - 145 mmol/L [facility] Urea nitrogen [Mass/Vol] 15 mg/dL 6 - 23 mg/dL [facility] Albumin BCP dye [Mass/Vol] 3.0 g/dL Low 3.4-5.0 [facility] Comment on above: Performed By: #### V ERAB #### CARIN Webb ([id number]) [facility] ([facility]) [address] [place] [address] Anion gap [Moles/Vol] 9 mmol/L Low 10-20 [facility] Comment on above: Performed By: #### V ERAB #### CARIN Webb ([id number]) [facility] ([facility]) [address] [place] [address] Calcium [Mass/Vol] 8.5 mg/dL Low 8.6-10.6 [facility] Comment on above: Performed By: #### V ERAB #### CARIN Webb ([id number]) [facility] ([facility]) [address] [place] [address] Chloride [Moles/Vol] 99 mmol/L Normal 98-107 [facility] Comment on above: Performed By: #### V ERAB #### CARIN Webb ([id number]) [facility] ([facility]) [address] [place] [address] CO2 [Moles/Vol] 28 mmol/L Normal 21-32 [facility] Comment on above: Performed By: #### V ERAB #### CARIN Webb ([id number]) [facility] ([facility]) [address] [place] [address] Creatinine [Mass/Vol] 0.64 mg/dL Normal 0.50-1.30 [facility] Comment on above: Performed By: #### V ERAB #### CARIN Webb ([id number]) [facility] ([facility]) [address] [place] [address] GFR/1.73 sq M.predicted MDRD (S/P/Bld) [Vol rate/Area] mL/min/{1.73_m2} Normal >60 [facility] Comment on above: Result Comment: Calc ulations of estimated GFR are performed using the 2020 CKD-EPI Study Refit equation without the race variable for the IDMS-Traceable creatinine methods. https://jasn.asnjournals.org/content/early//ASN.5766676 988 Performed By: #### V ERAB #### CARIN Webb ([id number]) [facility] ([facility]) [address] [place] [address] Glucose [Mass/Vol] 94 mg/dL Normal 74-99 [facility] Comment on above: Performed By: #### V ERAB #### CARIN Webb ([id number]) [facility] [address] [place] [address] Phosphate [Mass/Vol] 2.9 mg/dL Normal 2.5-4.9 [facility] Comment on above: Result Comment: The performance characteristics of phosphorus testing in heparinized plasma have been validated by the individual laboratory site where testing is performed. Testing on heparinized plasma is not approved by the FDA; however, such approval is not necessary. Performed By: #### V ERAB #### CARIN Webb ([id number]) [facility] ([facility]) [address] [place] [address] Potassium [Moles/Vol] 4.3 mmol/L Normal 3.5-5.3 [facility] Comment on above: Performed By: #### V ERAB #### CARIN Webb ([id number]) [facility] ([facility]) [address] [place] [address] Sodium [Moles/Vol] 132 mmol/L Low 136-145 [facility] Comment on above: Performed By: #### V ERAB #### CARIN Webb ([id number]) [facility] ([facility]) [address] [place] [address] Urea nitrogen [Mass/Vol] 15 mg/dL Normal 6-23 [facility] Comment on above: Performed By: #### V ERAB #### CARIN Webb ([id number]) [facility] ([facility]) [address] [place] [address] TSHon 01-30-2024 TSH Qn 0.66 m[IU]/L [facility] TSH Qnon 01-30-2024 Interpretation and review of laboratory results Normal [facility] TSH testing is perfo rmed using different testing methodology at [facility] than at other [facility]. Direct result comparisons should only be made within the same method. [facility] Thyrotropinon 01-30-2024 TSH Qn 0.66 m[IU]/L Normal 0.44-3.98 [facility] Comment on above: Order Comment: Thi s is for confirming/verifying history of ABORh on file for transfusion of blood products. If this is not for transfusion, please order an ABO/RH [[id number]]. If you have any questions or unsure what to order, please call the blood bank. Performed By: #### V ERAB #### CARIN Webb ([id number]) [facility] ([facility]) [address] [place] [address] Vitamin B12on 01-30-2024 Cobalamin (Vitamin B12) [Mass/Vol] 468 pg/mL 211 - 911 pg/mL [facility] Vitamin D 25-Hydroxy,Total ( for eval of Vitamin D levels)on 01-30-2024 25-hydroxyvitamin D3 [Mass/Vol] 33 ng/mL 30 - 100 ng/mL [facility] CBC panel Auto (Bld)on 01-28 Erythrocyte distribution width (RBC) [Ratio] 13.2 % 11.5 - 14.5 % [facility] Hematocrit (Bld) [Volume fraction] 28.2 % Low 41.0 - 52.0 % [facility] Hemoglobin (Bld) [Mass/Vol] 9.3 g/dL Low 13.5 - 17.5 g/dL [facility] Interpretation and review of laboratory results Abnormal [facility] MCH (RBC) [Entitic mass] 29.6 pg 26.0 - 34.0 pg [facility] MCHC (RBC) [Mass/Vol] 33.0 g/dL 32.0 - 36.0 g/dL [facility] MCV (RBC) [Entitic vol] 90 fL 80 - 100 fL [facility] Nucleated RBC/100 WBC (Bld) [Ratio] 0.0 % [facility] Platelets (Bld) [#/Vol] 179 10*3/uL [facility] RBC (Bld) [#/Vol] 3.14 10*6/uL Low [facility] WBC (Bld) [#/Vol] 7.0 10*3/uL [facility] Erythrocyte distribution width (RBC) [Ratio] 13.2 % Normal 11.5-14.5 [facility] Comment on above: Performed By: #### V ERAB #### CARIN Webb ([id number]) [facility] ([facility]) [address] [place] [address] Hematocrit (Bld) [Volume fraction] 28.2 % Low 41.0-52.0 [facility] Comment on above: Performed By: #### V ERAB #### CARIN Webb ([id number]) [facility] ([facility]) [address] [place] [address] Hemoglobin (Bld) [Mass/Vol] 9.3 g/dL Low 13.5-17.5 [facility] Comment on above: Performed By: #### V ERAB #### CARIN Webb ([id number]) [facility] ([facility]) [address] [place] [address] MCH (RBC) [Entitic mass] 29.6 pg Normal 26.0-34.0 [facility] Comment on above: Performed By: #### V ERAB #### CARIN Webb ([id number]) [facility] ([facility]) [address] [place] [address] MCHC (RBC) [Mass/Vol] 33.0 g/dL Normal 32.0-36.0 [facility] Comment on above: Performed By: #### V ERAB #### CARIN Webb ([id number]) [facility] ([facility]) [address] [place] [address] MCV (RBC) [Entitic vol] 90 fL Normal 80-100 [facility] Comment on above: Performed By: #### V ERAB #### CARIN Webb ([id number]) [facility] ([facility]) [address] [place] [address] Nucleated RBC/100 WBC (Bld) [Ratio] 0.0 /100 WBCs Normal 0.0-0.0 [facility] Comment on above: Performed By: #### V ERAB #### CARIN Webb ([id number]) [facility] ([facility]) [address] [place] [address] Platelets (Bld) [#/Vol] 179 x10*3/uL Normal 150-450 [facility] Comment on above: Performed By: #### V ERAB #### CARIN Webb ([id number]) [facility] ([facility]) [address] [place] [address] RBC (Bld) [#/Vol] 3.14 x10*6/uL Low 4.50-5.90 [facility] Comment on above: Performed By: #### V ERAB #### CARIN Webb ([id number]) [facility] ([facility]) [address] [place] [address] WBC (Bld) [#/Vol] 7.0 x10*3/uL Normal 4.4-11.3 [facility] Comment on above: Performed By: #### V ERAB #### CARIN Webb ([id number]) [facility] ([facility]) [address] [place] [address] Renal function 2000 panelon 01-29-2024 Albumin BCP dye [Mass/Vol] 3.3 g/dL Low 3.4 - 5.0 g/dL [facility] Anion gap [Moles/Vol] 12 mmol/L 10 - 20 mmol/L [facility] Calcium [Mass/Vol] 8.6 mg/dL 8.6 - 10. 6 mg/dL [facility] Chloride [Moles/Vol] 97 mmol/L Low 98 - 10 7 mmol/L [facility] CO2 [Moles/Vol] 27 mmol/L 21 - 32 mmol/L [facility] Creatinine [Mass/Vol] 0.95 mg/dL 0.50 - 1.30 mg/dL [facility] GFR/1.73 sq M.predicted among non-blacks MDRD (S/P/Bld) [Vol rate/Area] 79 mL/min/{1.73_m2} - PINF [facility] Comment on above: Calculations of sebastien mated GFR are performed using the 2020 CKD-EPI Study Refit equation without the race variable for the IDMS-Traceable creatinine methods. https://jasn.asnjournals.org/content//ASN.1522677 988 Glucose [Mass/Vol] 102 mg/dL High 74 - 99 mg/dL [facility] Interpretation and review of laboratory results Abnormal [facility] Phosphate [Mass/Vol] 2.9 mg/dL 2.5 - 4 .9 mg/dL [facility] Comment on above: The performance tripp acteristics of phosphorus testing in heparinized plasma have been validated by the individual laboratory site where testing is performed. Testing on heparinized plasma is not approved by the FDA; however, such approval is not necessary. Potassium [Moles/Vol] 4.5 mmol/L 3.5 - 5.3 mmol/L [facility] Sodium [Moles/Vol] 131 mmol/L Low 136 - 145 mmol/L [facility] Urea nitrogen [Mass/Vol] 18 mg/dL 6 - 23 mg/dL [facility] Albumin BCP dye [Mass/Vol] 3.3 g/dL Low 3.4-5.0 [facility] Comment on above: Performed By: #### V ERAB #### CARIN Webb ([id number]) [facility] ([facility]) [address] [place] [address] Anion gap [Moles/Vol] 12 mmol/L Normal 10-20 [facility] Comment on above: Performed By: #### V ERAB #### CARIN Webb ([id number]) [facility] ([facility]) [address] [place] [address] Calcium [Mass/Vol] 8.6 mg/dL Normal 8.6-10.6 [facility] Comment on above: Performed By: #### V ERAB #### CARIN Webb ([id number]) [facility] ([facility]) [address] [place] [address] Chloride [Moles/Vol] 97 mmol/L Low 98-107 [facility] Comment on above: Performed By: #### V ERAB #### CARIN Webb ([id number]) [facility] ([facility]) [address] [place] [address] CO2 [Moles/Vol] 27 mmol/L Normal 21-32 [facility] Comment on above: Performed By: #### V ERAB #### CARIN Webb ([id number]) [facility] ([facility]) [address] [place] [address] Creatinine [Mass/Vol] 0.95 mg/dL Normal 0.50-1.30 [facility] Comment on above: Performed By: #### V ERAB #### CARIN MERINO L ([id number]) [facility] ([facility]) [address] [place] [address] Glomerular filtration rate/1.73 sq M.predicted 79 mL/min/1.73m*2 Normal >60 [facility] Comment on above: Result Comment: Calc ulations of estimated GFR are performed using the 2020 CKD-EPI Study Refit equation without the race variable for the IDMS-Traceable creatinine methods. https://jasn.asnjournals.org/content//ASN.8356509 988 Performed By: #### V ERAB #### CARIN Webb ([id number]) [facility] ([facility]) [address] [place] [address] Glucose [Mass/Vol] 102 mg/dL High 74-99 [facility] Comment on above: Performed By: #### V ERAB #### CARIN MERINO L ([id number]) [facility] ([facility]) [address] [place] [address] Phosphate [Mass/Vol] 2.9 mg/dL Normal 2.5-4.9 [facility] Comment on above: Result Comment: The performance characteristics of phosphorus testing in heparinized plasma have been validated by the individual laboratory site where testing is performed. Testing on heparinized plasma is not approved by the FDA; however, such approval is not necessary. Performed By: #### V ERAB #### CARIN Webb ([id number]) [facility] ([facility]) [address] [place] [address] Potassium [Moles/Vol] 4.5 mmol/L Normal 3.5-5.3 [facility] Comment on above: Performed By: #### V ERAB #### CARIN Webb ([id number]) [facility] ([facility]) [address] [place] [address] Sodium [Moles/Vol] 131 mmol/L Low 136-145 [facility] Comment on above: Performed By: #### V ERAB #### CARIN Webb ([id number]) [facility] ([facility]) [address] [place] [address] Urea nitrogen [Mass/Vol] 18 mg/dL Normal 6-23 [facility] Comment on above: Performed By: #### V ERAB #### CARIN Webb ([id number]) [facility] ([facility]) [address] [place] [address] CBC panel Auto (Bld)on 01-27 Erythrocyte distribution width (RBC) [Ratio] 13.2 % 11.5 - 14.5 % [facility] Hematocrit (Bld) [Volume fraction] 35.8 % Low 41.0 - 52.0 % [facility] Hemoglobin (Bld) [Mass/Vol] 10.7 g/dL Low 13.5 - 17.5 g/dL [facility] Interpretation and review of laboratory results Abnormal [facility] MCH (RBC) [Entitic mass] 29.3 pg 26.0 - 34.0 pg [facility] MCHC (RBC) [Mass/Vol] 29.9 g/dL Low 32.0 - 36.0 g/dL [facility] MCV (RBC) [Entitic vol] 98 fL 80 - 100 fL [facility] Nucleated RBC/100 WBC (Bld) [Ratio] 0.0 % [facility] Platelets (Bld) [#/Vol] 154 10*3/uL [facility] RBC (Bld) [#/Vol] 3.65 10*6/uL Low [facility] WBC (Bld) [#/Vol] 8.6 10*3/uL [facility] Erythrocyte distribution width (RBC) [Ratio] 13.2 % Normal 11.5-14.5 [facility] Comment on above: Performed By: #### 5 8410-2 #### CARIN Webb ([id number]) [facility] ([facility]) [address] [place] [address] Hematocrit (Bld) [Volume fraction] 35.8 % Low 41.0-52.0 [facility] Comment on above: Performed By: #### 5 8410-2 #### CARIN Webb ([id number]) [facility] ([facility]) [address] [place] [address] Hemoglobin (Bld) [Mass/Vol] 10.7 g/dL Low 13.5-17.5 [facility] Comment on above: Performed By: #### 5 8410-2 #### CARIN Webb ([id number]) [facility] ([facility]) [address] [place] [address] MCH (RBC) [Entitic mass] 29.3 pg Normal 26.0-34.0 [facility] Comment on above: Performed By: #### 5 8410-2 #### CARIN Webb ([id number]) [facility] ([facility]) [address] [place] [address] MCHC (RBC) [Mass/Vol] 29.9 g/dL Low 32.0-36.0 [facility] Comment on above: Performed By: #### 5 8410-2 #### CARIN Webb ([id number]) [facility] ([facility]) [address] [place] [address] MCV (RBC) [Entitic vol] 98 fL Normal 80-100 [facility] Comment on above: Performed By: #### 5 8410-2 #### CARIN Webb ([id number]) [facility] ([facility]) [address] [place] [address] Nucleated RBC/100 WBC (Bld) [Ratio] 0.0 /100 WBCs Normal 0.0-0.0 [facility] Comment on above: Performed By: #### 5 8410-2 #### CARIN MERINO L ([id number]) [facility] ([facility]) [address] [place] [address] Platelets (Bld) [#/Vol] 154 x10*3/uL Normal 150-450 [facility] Comment on above: Performed By: #### 5 8410-2 #### CARIN Webb ([id number]) [facility] ([facility]) [address] [place] [address] RBC (Bld) [#/Vol] 3.65 x10*6/uL Low 4.50-5.90 [facility] Comment on above: Performed By: #### 5 8410-2 #### CARIN MERINO L ([id number]) [facility] ([facility]) [address] [place] [address] WBC (Bld) [#/Vol] 8.6 x10*3/uL Normal 4.4-11.3 [facility] Comment on above: Performed By: #### 5 8410-2 #### CARIN MERINO L ([id number]) [facility] ([facility]) [address] [place] [address] Abdomen and Pelvis W cont rast [...] Grossman. Data analyzed and images interpreted at [place], [place]. MACRO: Critical Finding: See findings. Notification was initiated on 01/28/2024 at 12:59 am by Nevaeh Lind. (-YCF-) Instructions: Signed by: Nevaeh Lind 01/28/2024 12:59 AM Dictation workstation: [id number] [facility] Interpreted By: Nevaeh Goel and [place] Conner STUDY: CT ABDOMEN PELVIS W IV CONTRAST; 01/27/2024 11:40 pm INDICATION: Signs/Symptoms:fall. COMPARISON: CT pelvis 01/27/2024 ACCESSION NUMBER(S): [id number] ORDERING CLINICIAN: HARINI MENDEZ TECHNIQUE: CT of [...] Signs/Symptoms:fall. COMPARISON: CT pelvis 01/27/2024 ACCESSION NUMBER(S): [id number] ORDERING CLINICIAN: HARINI MENDEZ TECHNIQUE: CT of [...] Grossman. Data analyzed and images interpreted at [facility], [place], [place]. MACRO: Critical Finding: See findings. Notification was initiated on 01/28/2024 at 12:59 am by Nevaeh Lind. (-YCF-) Instructions: Signed by: Nevaeh Lind 01/28/2024 12:59 AM Dictation workstation: [id number] [facility] Work Phone: [facility] Work Phone: ECG 12 LeadOrdered By: Jessa Hill on 01-28-2024 Atrial Rate 67 BPM [facility] Work Phone: P [place] 30 degrees [facility] Work Phone: P Offset 185 [facility] Work Phone: P Onset 124 ms [facility] Work Phone: [phone] LA Interval 192 ms [facility] Work Phone: [phone] Q Onset 220 ms [facility] Work Phone: [phone] QRS Count 10 beats [facility] Work Phone: [phone] QRS Duration 90 ms [facility] Work Phone: [phone] QT Interval 392 ms [facility] Work Phone: [phone] QTC Calculation(Bazett) 414 [facility] Work Phone: [phone] QTC Fredericia 407 [facility] Work Phone: [phone] R [place] 39 degrees [facility] Work Phone: T [place] 34 degrees [facility] Work Phone: [phone] T Offset 416 ms [facility] Work Phone: Ventricular Rate 67 BPM [facility] Work Phone: [phone] [facility] Work Phone: [phone] ECG 12 Leadon 01-28-2024 Normal sinus rhythm Normal ECG No previous ECGs available See ED provider note for full interpretation and clinical correlation Confirmed by Daphne Hill ([id number]) on 01/28/2024 1:10:44 AM Daphne Moore PA-C - 01/28/2024 Normal sinus rhythm Normal ECG No previous ECGs available See ED provider note for full interpretation and clinical correlation Confirmed by Daphne Hill ([id number]) on 01/28/2024 1:10:44 AM [facility] Work Phone: FL FLUORO IMAGES NO CHARGEon 01-28-2024 FL FLUORO IMAGES NO CHARGE These images are not reportable by radiology and will not be interpreted by Radiologists. Normal [facility] Magnesiumon 01-28-2024 Magnesium [Mass/Vol] 2.02 mg/dL 1.60 - 2.40 mg/dL [facility] Magnesium [Mass/Vol] 2.02 mg/dL Normal 1.60-2.40 [facility] Comment on above: Performed By: #### 1 9123-9 #### CARIN Webb ([id number]) [facility] ([facility]) [address] [place] [address] Magnesium [Mass/Vol]on 01-27 Interpretation and review of laboratory results Normal [facility] No Panel Informationon 01-27 [facility] 1. Minimally displac ed subtrochanteric periprosthetic fracture, not significantly changed in alignment. 2. 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 I personally reviewed the images/study and I agree with the findings as stated by Dr. Song Lozoya. This study was interpreted at [place], [place]. MACRO: None Signed by: Nevaeh Lind 01/28/2024 12:34 AM Dictation workstation: [id number] [facility] Interpreted By: Nevaeh Goel and [place] Zachary STUDY: XR HIP LEFT WITH PELVIS WHEN PERFORMED 2 OR 3 VIEWS; XR KNEE LEFT 1-2 VIEWS 01/27/2024 8:52 pm INDICATION: Signs/Symptoms:femur fracture COMPARISON: Pelvic radiograph 01/27/2024. ACCESSION NUMBER(S): [id number]; [id number] ORDERING CLINICIAN: JADEN GONZALEZ TECHNIQUE: AP view [...] fracture COMPARISON: Pelvic radiograph 01/27/2024. ACCESSION NUMBER(S): [id number]; [id number] ORDERING CLINICIAN: JADEN GONZALEZ TECHNIQUE: AP view [...] Song Lozoya. This study was interpreted at [place], [place]. MACRO: None Signed by: Nevaeh Lind 01/28/2024 12:34 AM Dictation workstation: [id number] [facility] Work Phone: No Panel InformationOrdered By: Nevaeh Lind on 01-28-2024 [facility] Work Phone: Renal function 2000 panelon 01-28-2024 Albumin BCP dye [Mass/Vol] 3.3 g/dL Low 3.4 - 5.0 g/dL [facility] Anion gap [Moles/Vol] 13 mmol/L 10 - 20 mmol/L [facility] Calcium [Mass/Vol] 8.2 mg/dL Low 8.6 - 10. 6 mg/dL [facility] Chloride [Moles/Vol] 100 mmol/L 98 - 10 7 mmol/L [facility] CO2 [Moles/Vol] 23 mmol/L 21 - 32 mmol/L [facility] Creatinine [Mass/Vol] 0.74 mg/dL 0.50 - 1.30 mg/dL [facility] GFR/1.73 sq M.predicted among non-blacks MDRD (S/P/Bld) [Vol rate/Area] 89 mL/min/{1.73_m2} - PINF [facility] Comment on above: Calculations of sebastien mated GFR are performed using the 2020 CKD-EPI Study Refit equation without the race variable for the IDMS-Traceable creatinine methods. https://jasn.asnjournals.org/content//ASN.2987707 988 Glucose [Mass/Vol] 142 mg/dL High 74 - 99 mg/dL [facility] Interpretation and review of laboratory results Abnormal [facility] Phosphate [Mass/Vol] 3.5 mg/dL 2.5 - 4 .9 mg/dL [facility] Comment on above: The performance tripp acteristics of phosphorus testing in heparinized plasma have been validated by the individual laboratory site where testing is performed. Testing on heparinized plasma is not approved by the FDA; however, such approval is not necessary. Potassium [Moles/Vol] 4.8 mmol/L 3.5 - 5.3 mmol/L [facility] Sodium [Moles/Vol] 131 mmol/L Low 136 - 145 mmol/L [facility] Urea nitrogen [Mass/Vol] 14 mg/dL 6 - 23 mg/dL [facility] Albumin BCP dye [Mass/Vol] 3.3 g/dL Low 3.4-5.0 [facility] Comment on above: Performed By: #### 2 4362-6 #### CARIN Webb ([id number]) [facility] ([facility]) [address] [place] [address] Anion gap [Moles/Vol] 13 mmol/L Normal 10-20 [facility] Comment on above: Performed By: #### 2 4362-6 #### CARIN Webb ([id number]) [facility] ([facility]) [address] [place] [address] Calcium [Mass/Vol] 8.2 mg/dL Low 8.6-10.6 [facility] Comment on above: Performed By: #### 2 4362-6 #### CARIN Webb ([id number]) [facility] ([facility]) [address] [place] [address] Chloride [Moles/Vol] 100 mmol/L Normal 98-107 [facility] Comment on above: Performed By: #### 2 4362-6 #### CARIN MERINO L ([id number]) [facility] ([facility]) [address] [place] [address] CO2 [Moles/Vol] 23 mmol/L Normal 21-32 [facility] Comment on above: Performed By: #### 2 4362-6 #### CARIN Webb ([id number]) [facility] ([facility]) [address] [place] [address] Creatinine [Mass/Vol] 0.74 mg/dL Normal 0.50-1.30 [facility] Comment on above: Performed By: #### 2 4362-6 #### CARIN MERINO L ([id number]) [facility] ([facility]) [address] [place] [address] Glomerular filtration rate/1.73 sq M.predicted 89 mL/min/1.73m*2 Normal >60 [facility] Comment on above: Result Comment: Calc ulations of estimated GFR are performed using the 2020 CKD-EPI Study Refit equation without the race variable for the IDMS-Traceable creatinine methods. https://jasn.asnjournals.org/content//ASN.7976616 988 Performed By: #### 2 4362-6 #### CARIN MERINO L ([id number]) [facility] ([facility]) [address] [place] [address] Glucose [Mass/Vol] 142 mg/dL High 74-99 [facility] Comment on above: Performed By: #### 2 4362-6 #### CARIN Webb ([id number]) [facility] ([facility]) [address] [place] [address] Phosphate [Mass/Vol] 3.5 mg/dL Normal 2.5-4.9 [facility] Comment on above: Result Comment: The performance characteristics of phosphorus testing in heparinized plasma have been validated by the individual laboratory site where testing is performed. Testing on heparinized plasma is not approved by the FDA; however, such approval is not necessary. Performed By: #### 2 4362-6 #### CARIN Webb ([id number]) [facility] ([facility]) [address] [place] [address] Potassium [Moles/Vol] 4.8 mmol/L Normal 3.5-5.3 [facility] Comment on above: Performed By: #### 2 4362-6 #### CARIN JADEMODENISEER L ([id number]) [facility] ([facility]) [address] [place] [address] Sodium [Moles/Vol] 131 mmol/L Low 136-145 [facility] Comment on above: Performed By: #### 2 4362-6 #### CARIN MERINO L ([id number]) [facility] ([facility]) [address] [place] [address] Urea nitrogen [Mass/Vol] 14 mg/dL Normal 6-23 [facility] Comment on above: Performed By: #### 2 4362-6 #### CARIN MERINO L ([id number]) [facility] ([facility]) [address] [place] [address] XR Chest Single viewon 01-27 1. Mild bibasilar atelectasis. I personally reviewed the images/study and I agree with the findings as stated by Dr. Song Lozoya. This study was interpreted at [facility], [place], [place]. MACRO: None Signed by: Nevaeh Lind 01/28/2024 12:36 AM Dictation workstation: [id number] [facility] Interpreted By: Nevaeh Goel and Ohs Zachary STUDY: XR CHEST 1 VIEW; 01/27/2024 8:52 pm INDICATION: Signs/Symptoms:preop clearance. COMPARISON: None. ACCESSION NUMBER(S): [id number] ORDERING CLINICIAN: JADEN GONZALEZ FINDINGS: AP radiograph [...] INDICATION: Signs/Symptoms:preop clearance. COMPARISON: None. ACCESSION NUMBER(S): [id number] ORDERING CLINICIAN: JADEN GONZALEZ FINDINGS: AP radiograph [...] Song Lozoya. This study was interpreted at [place], [place]. MACRO: None Signed by: Nevaeh Lind 01/28/2024 12:36 AM Dictation workstation: [id number] [facility] Work Phone: [facility] Work Phone: XR tomography Unspecified dave dy regionon 01-28-2024 These images are not reportable by radiology and will not be interpreted by Radiologists. IMAGING Blood type AND Indirect anti body screen panelon 01-27-2024 ABO group Nom (Bld) A Normal [facility] Comment on above: Performed By: #### 3 4532-2 #### CARIN Webb ([id number]) [facility] ([facility]) [address] [place] [id number] D Ag Ql (Bld) Positive Normal [facility] Comment on above: Performed By: #### 3 4532-2 #### CARIN Webb ([id number]) [facility] ([facility]) [address] [place] [address] Blood type and Indirect anti body screen panel (Bld)on 01-27-2024 ABO group Nom (Bld) A [facility] Blood group antibody screen Ql Negative [facility] D Ag Ql (Bld) Positive [facility] Blood group antibody screen Ql Negative Normal [facility] Comment on above: Performed By: #### 3 4532-2 #### CARIN Webb ([id number]) [facility] ([facility]) [address] [place] [address] CBC W Auto Differential pane l (Bld)on 01-27-2024 Basophils (Bld) [#/Vol] 0.05 10*3/uL [facility] Basophils/100 WBC (Bld) 0.6 % 0.0 - 2.0 % [facility] Eosinophils (Bld) [#/Vol] 0.57 10*3/uL High [facility] Eosinophils/100 WBC (Bld) 7.3 % 0.0 - 6.0 % [facility] Erythrocyte distribution width (RBC) [Ratio] 13.4 % 11.5 - 14.5 % [facility] Hematocrit (Bld) [Volume fraction] 36.5 % Low 41.0 - 52.0 % [facility] Hemoglobin (Bld) [Mass/Vol] 12.3 g/dL Low 13.5 - 17.5 g/dL [facility] Immature granulocytes (Bld) [#/Vol] 0.03 10*3/uL [facility] Immature granulocytes/100 WBC (Bld) 0.4 % 0.0 - 0.9 % [facility] Comment on above: Immature Granulocyte Count (IG) includes promyelocytes, myelocytes and metamyelocytes but does not include bands. Percent differential counts (%) should be interpreted in the context of the absolute cell counts (cells/UL). Interpretation and review of laboratory results Abnormal [facility] Lymphocytes (Bld) [#/Vol] 0.97 10*3/uL [facility] Lymphocytes/100 WBC (Bld) 12.3 % 13.0 - 44.0 % [facility] MCH (RBC) [Entitic mass] 29.9 pg 26.0 - 34.0 pg [facility] [facility] MCHC (RBC) [Mass/Vol] 33.7 g/dL 32.0 - 36.0 g/dL [facility] MCV (RBC) [Entitic vol] 89 fL 80 - 100 fL [facility] Monocytes (Bld) [#/Vol] 1.09 10*3/uL High [facility] Monocytes/100 WBC (Bld) 13.9 % 2.0 - 10.0 % [facility] Neutrophils (Bld) [#/Vol] 5.15 10*3/uL [facility] Comment on above: Percent differential counts (%) should be interpreted in the context of the absolute cell counts (cells/uL). Neutrophils/100 WBC (Bld) 65.5 % 40.0 - 80.0 % [facility] Nucleated RBC/100 WBC (Bld) [Ratio] 0.0 % [facility] Platelets (Bld) [#/Vol] 182 10*3/uL [facility] RBC (Bld) [#/Vol] 4.12 10*6/uL Low [facility] WBC (Bld) [#/Vol] 7.9 10*3/uL [facility] Basophils (Bld) [#/Vol] 0.05 x10*3/uL Normal 0.00-0.10 [facility] Comment on above: Performed By: #### 5 7021-8 #### BRANDON Webb ([id number]) [facility] [address] [place] [address] Basophils/100 WBC (Bld) 0.6 % Normal 0.0-2.0 [facility] Comment on above: Performed By: #### 70-8 #### BRANDON Webb ([id number]) [facility] [address] [place] [address] Eosinophils (Bld) [#/Vol] 0.57 x10*3/uL High 0.00-0.40 [facility] Comment on above: Performed By: #### 5 7021-8 #### BRANDON Webb ([id number]) [facility] [address] [place] [address] Eosinophils/100 WBC (Bld) 7.3 % Normal 0.0-6.0 [facility] Comment on above: Performed By: #### 5 7021-8 #### BRANDON Webb ([id number]) [facility] [address] [place] [address] Erythrocyte distribution width (RBC) [Ratio] 13.4 % Normal 11.5-14.5 [facility] Comment on above: Performed By: #### 5 7021-8 #### BRANDON Webb ([id number]) [facility] [address] [place] [address] Hematocrit (Bld) [Volume fraction] 36.5 % Low 41.0-52.0 [facility] Comment on above: Performed By: #### 5 7021-8 #### BRANDON Webb ([id number]) [facility] [address] [place] [address] Hemoglobin (Bld) [Mass/Vol] 12.3 g/dL Low 13.5-17.5 [facility] Comment on above: Performed By: #### 70-8 #### BRANDON Webb ([id number]) [facility] [address] [place] [address] 64998 Immature granulocytes (Bld) [#/Vol] 0.03 x10*3/uL Normal 0.00-0.50 [facility] Comment on above: Performed By: #### 5 7021-8 #### BRANDON Webb ([id number]) [facility] [address] [place] [address] 07777 Immature granulocytes/100 WBC (Bld) 0.4 % Normal 0.0-0.9 [facility] Comment on above: Result Comment: Larisa ture Granulocyte Count (IG) includes promyelocytes, myelocytes and metamyelocytes but does not include bands. Percent differential counts (%) should be interpreted in the context of the absolute cell counts (cells/UL). Performed By: #### 5 7021-8 #### BRANDON Webb ([id number]) [facility] [address] [place] [address] 00701 Lymphocytes (Bld) [#/Vol] 0.97 x10*3/uL Normal 0.80-3.00 [facility] Comment on above: Performed By: #### 5 7021-8 #### BRANDON Webb ([id number]) [facility] [address] [place] [address] 72409 Lymphocytes/100 WBC (Bld) 12.3 % Normal 13.0-44.0 [facility] Comment on above: Performed By: #### 5 7021-8 #### BRANDON Webb ([id number]) [facility] [address] [place] [address] 90128 MCH (RBC) [Entitic mass] 29.9 pg Normal 26.0-34.0 [facility] Comment on above: Performed By: #### 5 7021-8 #### BRANDON Webb ([id number]) [facility] [address] [place] [address] 47818 MCHC (RBC) [Mass/Vol] 33.7 g/dL Normal 32.0-36.0 [facility] Comment on above: Performed By: #### 5 7021-8 #### BRANDON Webb ([id number]) [facility] [address] [place] [address] 75452 MCV (RBC) [Entitic vol] 89 fL Normal 80-100 [facility] Comment on above: Performed By: #### 5 7021-8 #### BRANDON Webb ([id number]) [facility] [address] [place] [address] 27439 Monocytes (Bld) [#/Vol] 1.09 x10*3/uL High 0.05-0.80 [facility] Comment on above: Performed By: #### 5 7021-8 #### BRANDON Webb ([id number]) [facility] [address] [place] [address] 28865 Monocytes/100 WBC (Bld) 13.9 % Normal 2.0-10.0 [facility] Comment on above: Performed By: #### 5 7021-8 #### BRANDON Webb ([id number]) [facility] [address] [place] [address] 54116 Neutrophils (Bld) [#/Vol] 5.15 x10*3/uL Normal 1.60-5.50 [facility] Comment on above: Result Comment: Perc ent differential counts (%) should be interpreted in the context of the absolute cell counts (cells/uL). Performed By: #### 5 7021-8 #### BRANDON Webb ([id number]) [facility] [address] [place] [address] 20215 Neutrophils/100 WBC (Bld) 65.5 % Normal 40.0-80.0 [facility] Comment on above: Performed By: #### 5 7021-8 #### BRANDON Webb ([id number]) [facility] [address] [place] [address] 17748 Nucleated RBC/100 WBC (Bld) [Ratio] 0.0 /100 WBCs Normal 0.0-0.0 [facility] Comment on above: Performed By: #### 5 7021-8 #### BRANDON Webb ([id number]) [facility] [address] [place] [address] 32194 Platelets (Bld) [#/Vol] 182 x10*3/uL Normal 150-450 [facility] Comment on above: Performed By: #### 5 7021-8 #### BRANDON Webb ([id number]) [facility] [address] [place] [address] 95592 RBC (Bld) [#/Vol] 4.12 x10*6/uL Low 4.50-5.90 [facility] Comment on above: Performed By: #### 5 7021-8 #### BRANDON Webb ([id number]) [facility] [address] [place] [address] 68331 WBC (Bld) [#/Vol] 7.9 x10*3/uL Normal 4.4-11.3 [facility] Comment on above: Performed By: #### 5 7021-8 #### BRANDON Webb ([id number]) [facility] [address] [place] [address] ABDOMEN PELVIS W IV CONTR Jane 01-27-2024 CT ABDOMEN PELVIS W IV CONTRAST Interpreted By: Nevaeh Lind and Beyersdorf Conner STUDY: CT ABDOMEN PELVIS W IV CONTRAST; 01/27/2024 11:40 pm INDICATION: Signs/Symptoms:fall. COMPARISON: CT pelvis 01/27/2024 ACCESSION NUMBER(S): [id number] ORDERING CLINICIAN: HARINI MENDEZ TECHNIQUE: CT of [...] Grossman. Data analyzed and images interpreted at [facility], [place], [place]. MACRO: Critical Finding: See findings. Notification was initiated on 01/28/2024 at 12:59 am by Nevaeh Lind. (-YCF-) Instructions: Signed by: Nevaeh Lind 01/28/2024 12:59 AM Dictation workstation: [id number] [facility] CT Abdomen and Pelvis W cont rast Diana 01-27-2024 Radiology Study observation (narrative) [facility] Work Phone: CT LUMBAR SPINE WO IV CONTRA STon 01-27-2024 CT LUMBAR SPINE WO IV CONTRAST Interpreted By: Lelia Mclaughlin, STUDY: CT LUMBAR SPINE WO IV CONTRAST 01/27/2024 12:14 pm INDICATION: Signs/Symptoms:fall COMPARISON: None. ACCESSION NUMBER(S): [id number] ORDERING CLINICIAN: DEZ HOOVER TECHNIQUE: Axial CT [...] Lelia Mclaughlin 01/27/2024 1:35 PM Dictation workstation: [id number] [facility] CT Lumbar spine WO contrasto n 01-27-2024 Multilevel discogeni c degenerative changes with central canal and neural foraminal narrowing at multiple levels and vacuum disc at every level. Minimal loss of height of multiple lumbar spine vertebral bodies of likely chronic nature. MACRO: None Signed by: Lelia Mclaughlin 01/27/2024 1:35 PM Dictation workstation: [id number] MMODAL Interpreted By: Lelia Romo, STUDY: CT LUMBAR SPINE WO IV CONTRAST 01/27/2024 12:14 pm INDICATION: Signs/Symptoms:fall COMPARISON: None. ACCESSION NUMBER(S): [id number] ORDERING CLINICIAN: DEZ HOOVER TECHNIQUE: Axial CT [...] pm INDICATION: Signs/Symptoms:fall COMPARISON: None. ACCESSION NUMBER(S): [id number] ORDERING CLINICIAN: DEZ HOOVER TECHNIQUE: Axial CT [...] Lelia Mclaughlin 01/27/2024 1:35 PM Dictation workstation: [id number] [facility] Work Phone: CT Lumbar spine WO contrastO rdered By: Lelia Mclaughlin on 01-27-2024 [facility] Work Phone: CT PELVIS WO IV CONTRASTon 0 01-27-2024 CT PELVIS WO IV CONTRAST Interpreted By: Sushil Mcclellan, STUDY: CT PELVIS WO IV CONTRAST; ; 01/27/2024 12:14 pm INDICATION: Signs/Symptoms:fall/left hip pain/history of implant/unable to ambulate. COMPARISON: None. 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 MACRO: None Signed by: Sushil Mcclellan 01/27/2024 12:43 PM Dictation workstation: [id number] MMODAL Interpreted By: Sushil Harris, STUDY: CT PELVIS WO IV CONTRAST; ; 01/27/2024 12:14 pm INDICATION: Signs/Symptoms:fall/left hip pain/history of implant/unable to ambulate. COMPARISON: None. ACCESSION NUMBER(S): [id number] ORDERING CLINICIAN: DEZ HOOVER TECHNIQUE: Multiple thin-section [...] implant/unable to ambulate. COMPARISON: None. ACCESSION NUMBER(S): [id number] ORDERING CLINICIAN: DEZ HOOVER TECHNIQUE: Multiple thin-section [...] Sushil Mcclellan 01/27/2024 12:43 PM Dictation workstation: [id number] [facility] Work Phone: CT Pelvis WO contrastOrdered By: Sushil Mcclellan on 01-27-2024 [facility] Work Phone: Coagulation tissue factor in ducedon 01-27-2024 PT Coag (PPP) [Time] 12.6 s Normal 9.8-12.8 [facility] Comment on above: Performed By: #### 5 902-2 #### BRANDON Webb ([id number]) [facility] ([facility] [address] [place] [address]120 Comprehensive metabolic 2000 panelon 01-27-2024 Albumin BCP dye [Mass/Vol] 3.8 g/dL 3.4 - 5.0 g/dL [facility] ALP [Catalytic activity/Vol] 43 U/L 33 - 136 U/L [facility] ALT With P-5'-P [Catalytic activity/Vol] 12 U/L 10 - 52 U/L [facility] Comment on above: Patients treated wit h Sulfasalazine may generate falsely decreased results for ALT. Anion gap [Moles/Vol] 10 mmol/L 10 - 20 mmol/L [facility] AST With P-5'-P [Catalytic activity/Vol] 17 U/L 9 - 39 U/L [facility] Bilirubin [Mass/Vol] 0.8 mg/dL 0.0 - 1 .2 mg/dL [facility] Calcium [Mass/Vol] 8.6 mg/dL 8.6 - 10. 3 mg/dL [facility] Chloride [Moles/Vol] 101 mmol/L 98 - 10 7 mmol/L [facility] CO2 [Moles/Vol] 27 mmol/L 21 - 32 mmol/L [facility] Creatinine [Mass/Vol] 0.71 mg/dL 0.50 - 1.30 mg/dL [facility] GFR/1.73 sq M.predicted among non-blacks MDRD (S/P/Bld) [Vol rate/Area] 90 mL/min/{1.73_m2} - PINF [facility] Comment on above: Calculations of sebastien mated GFR are performed using the 2020 CKD-EPI Study Refit equation without the race variable for the IDMS-Traceable creatinine methods. https://jasn.asnjournals.org/content//ASN.9885086 988 Glucose [Mass/Vol] 95 mg/dL 74 - 99 mg/dL [facility] Interpretation and review of laboratory results Abnormal [facility] Potassium [Moles/Vol] 4.5 mmol/L 3.5 - 5.3 mmol/L [facility] Protein [Mass/Vol] 6.7 g/dL 6.4 - 8.2 g/dL [facility] Sodium [Moles/Vol] 133 mmol/L Low 136 - 145 mmol/L [facility] Urea nitrogen [Mass/Vol] 15 mg/dL 6 - 23 mg/dL [facility] Albumin BCP dye [Mass/Vol] 3.8 g/dL Normal 3.4-5.0 [facility] Comment on above: Performed By: #### 2 4323-8 #### BRANDON Webb ([id number]) [facility] ([facility] [address] [place] [address] 94820 ALP [Catalytic activity/Vol] 43 U/L Normal 33-136 [facility] Comment on above: Performed By: #### 2 4323-8 #### BRANDON Webb ([id number]) [facility] ([facility] [address] [place] [address] 14183 ALT With P-5'-P [Catalytic activity/Vol] 12 U/L Normal 10-52 [facility] Comment on above: Result Comment: Eloisa ents treated with Sulfasalazine may generate falsely decreased results for ALT. Performed By: #### 2 4323-8 #### BRANDON Webb ([id number]) [facility] [address] [place] [address] 04700 Anion gap [Moles/Vol] 10 mmol/L Normal 10-20 [facility] Comment on above: Performed By: #### 2 432-8 #### BRANDON Webb ([id number]) [facility] [address] [place] [address] 46281 AST With P-5'-P [Catalytic activity/Vol] 17 U/L Normal 9-39 [facility] Comment on above: Performed By: #### 2 432-8 #### BRANDON Webb ([id number]) [facility] [address] [place] [address] 25956 Bilirubin [Mass/Vol] 0.8 mg/dL Normal 0.0-1.2 [facility] Comment on above: Performed By: #### 2 4323-8 #### BRANDON Webb ([id number]) [facility] [address] [place] [address] 21779 Calcium [Mass/Vol] 8.6 mg/dL Normal 8.6-10.[address] [facility] Comment on above: Performed By: #### 2 4323-8 #### BRANDON Webb ([id number]) [facility] [address] [place] [address] 63578 Chloride [Moles/Vol] 101 mmol/L Normal 98-107 [facility] Comment on above: Performed By: #### 2 4323-8 #### BRANDON Webb ([id number]) [facility] [address] [place] [address] 25035 CO2 [Moles/Vol] 27 mmol/L Normal 21-32 [facility] Comment on above: Performed By: #### 2 4323-8 #### BRANDON Webb ([id number]) [facility] ([facility] [address] [place] [address] 25751 Creatinine [Mass/Vol] 0.71 mg/dL Normal 0.50-1.30 [facility] Comment on above: Performed By: #### 2 4323-8 #### BRANDON Webb ([id number]) [facility] ([facility] [address] [place] [address] 36784 Glomerular filtration rate/1.73 sq M.predicted 90 mL/min/1.73m*2 Normal >60 [facility] Comment on above: Result Comment: Calc ulations of estimated GFR are performed using the 2020 CKD-EPI Study Refit equation without the race variable for the IDMS-Traceable creatinine methods. https://jasn.asnjournals.org/content//ASN.9638707 988 Performed By: #### 2 4323-8 #### BRADNON Webb ([id number]) [facility] [address] [place] [address] 05756 Glucose [Mass/Vol] 95 mg/dL Normal 74-[address] [facility] Comment on above: Performed By: #### 2 4323-8 #### BRANDON Webb ([id number]) [facility] [address] [place] [address] 49673 Potassium [Moles/Vol] 4.5 mmol/L Normal 3.5-5.3 [facility] Comment on above: Performed By: #### 2 4323-8 #### BRANDON Webb ([id number]) [facility] [address] [place] [address] 44307 Protein [Mass/Vol] 6.7 g/dL Normal 6.4-8.[address] [facility] Comment on above: Performed By: #### 2 4323-8 #### BRANDON Webb ([id number]) [facility] [address] [place] [address] 85780 Sodium [Moles/Vol] 133 mmol/L Low 136-[address] [facility] Comment on above: Performed By: #### 2 4323-8 #### BRANDON Webb ([id number]) [facility] [address] [place] [address] 31319 Urea nitrogen [Mass/Vol] 15 mg/dL Normal 6-23 [facility] Comment on above: Performed By: #### 2 4323-8 #### BRANDON Webb ([id number]) [facility] [address] [place] [address] 65173 ECG 12-LEADon 01-27-2024 ECG 12-LEAD Ventricular Rate 67 Atrial Rate 67 P-R Interval 192 QRS Duration 90 Q-T Interval 392 QTC Calculation(Bazett) 414 P [place] 30 R [place] 39 T [place] 34 QRS Count 10 Q Onset 220 P Onset 124 P Offset 185 T Offset 416 QTC Fredericia 407 Diagnosis Normal sinus rhythm Normal ECG No previous ECGs available See ED provider note for full interpretation and clinical correlation Confirmed by Daphne Hill ([id number]) on 01/28/2024 1:10:44 AM Normal [facility] No Panel Informationon 01-26 Radiology Study observation (narrative) [facility] Work Phone: A fracture through t he proximal left femur. No dislocation. Signed by: Lelia Mclaughlin 01/27/2024 3:15 PM Dictation workstation: [id number] MMODAL Interpreted By: Lelia Romo, STUDY: XR FEMUR LEFT 2+ VIEWS; XR PELVIS 1-2 VIEWS; 01/27/2024 3:04 pm INDICATION: Signs/Symptoms:fall. COMPARISON: None. ACCESSION NUMBER(S): [id number]; [id number] ORDERING CLINICIAN: DEZ HOOVER FINDINGS: Total bilateral hip arthroplasties.. There is a fracture through the proximal femur, inferior to the trochanters. No dislocation. Vascular calcification. Degenerative changes of the visualized left knee. Vascular calcification. MMODAL Lelia Mclaughlin MD - 01/27/2024 Interpreted By: Lelia Mclaughlin, STUDY: XR FEMUR LEFT 2+ VIEWS; XR PELVIS 1-2 VIEWS; 01/27/2024 3:04 pm INDICATION: Signs/Symptoms:fall. COMPARISON: None. ACCESSION NUMBER(S): [id number]; [id number] ORDERING CLINICIAN: DEZ HOOVER FINDINGS: Total bilateral hip arthroplasties.. There is a fracture through the proximal femur, inferior to the trochanters. No dislocation. Vascular calcification. Degenerative changes of the visualized left knee. Vascular calcification. IMPRESSION: A fracture through the proximal left femur. No dislocation. Signed by: Lelia Mclaughlin 01/27/2024 3:15 PM Dictation workstation: [id number] [facility] Work Phone: [facility] Work Phone: [facility] Radiology Study observation (narrative) [facility] Work Phone: Radiology Study observation (narrative) [facility] Work Phone: PT Coag (PPP) [Time]on 01-26 INR Coag (PPP) [Relative time] 1.1 {INR} 0.9 - 1.1 [facility] Interpretation and review of laboratory results Normal [facility] INR Coag (PPP) [Relative time] 1.1 Normal 0.9-1.1 [facility] Comment on above: Performed By: #### 5 902-2 #### BRANDON Webb ([id number]) [facility] ([facility] [address] [place] [address] 08013 Protime-INRon 01-27-2024 PT Coag (PPP) [Time] 12.6 s [facility] VERAB/VERIFY ABORHon 024 ABO group Nom (Bld) A Normal [facility] Comment on above: Order Comment: Thi s is for confirming/verifying history of ABORh on file for transfusion of blood products. If this is not for transfusion, please order an ABO/RH [[id number]]. If you have any questions or unsure what to order, please call the blood bank. Performed By: #### V ERAB #### CARIN Webb ([id number]) [facility] ([facility]) [address] [place] [address] D Ag Ql (Bld) Positive Normal [facility] Comment on above: Order Comment: Thi s is for confirming/verifying history of ABORh on file for transfusion of blood products. If this is not for transfusion, please order an ABO/RH [[id number]]. If you have any questions or unsure what to order, please call the blood bank. Performed By: #### V ERAB #### CARIN Webb ([id number]) [facility] ([facility]) [address] [place] [address] XR CHEST 1 VIEWon 01-27-2024 XR CHEST 1 VIEW Interpreted By: Nevaeh Goel and Ohs Zachary STUDY: XR CHEST 1 VIEW; 01/27/2024 8:52 pm INDICATION: Signs/Symptoms:preop clearance. COMPARISON: None. ACCESSION NUMBER(S): [id number] ORDERING CLINICIAN: JADEN GONZALEZ FINDINGS: AP radiograph [...] Song Lozoya. This study was interpreted at [facility], [place], [place]. MACRO: None Signed by: Nevaeh Lind 01/28/2024 12:36 AM Dictation workstation: [id number] [facility] XR FEMUR LEFT 2+ VIEWSon XR FEMUR LEFT 2+ VIEWS Interpreted By: Lelia Mclaughlin, STUDY: XR FEMUR LEFT 2+ VIEWS; XR PELVIS 1-2 VIEWS; 01/27/2024 3:04 pm INDICATION: Signs/Symptoms:fall. COMPARISON: None. ACCESSION NUMBER(S): [id number]; [id number] ORDERING CLINICIAN: DEZ HOOVER FINDINGS: Total bilateral hip arthroplasties.. There is a fracture through the proximal femur, inferior to the trochanters. No dislocation. Vascular calcification. Degenerative changes of the visualized left knee. Vascular calcification. IMPRESSION: A fracture through the proximal left femur. No dislocation. Signed by: Lelia Mclaughlin 01/27/2024 3:15 PM Dictation workstation: [id number] [facility] XR HIP LEFT WITH PELVIS WHEN PERFORMED 2 OR 3 VIEWSon 01-27-2024 XR HIP LEFT WITH PELVIS WHEN PERFORMED 2 OR 3 VIEWS Interpreted By: Nevaeh Lind and Ohs Zachary STUDY: XR HIP LEFT WITH PELVIS WHEN PERFORMED 2 OR 3 VIEWS; XR KNEE LEFT 1-2 VIEWS 01/27/2024 8:52 pm INDICATION: Signs/Symptoms:femur fracture COMPARISON: Pelvic radiograph 01/27/2024. ACCESSION NUMBER(S): [id number]; [id number] ORDERING CLINICIAN: JADEN GONZALEZ TECHNIQUE: AP view [...] Song Lozoya. This study was interpreted at [place], [place]. MACRO: None Signed by: Nevaeh Lind 01/28/2024 12:34 AM Dictation workstation: [id number] [facility] XR KNEE LEFT 1-2 VIEWSon XR KNEE LEFT 1-2 VIEWS Interpreted By: Nevaeh Lind and Ohs Zachary STUDY: XR HIP LEFT WITH PELVIS WHEN PERFORMED 2 OR 3 VIEWS; XR KNEE LEFT 1-2 VIEWS 01/27/2024 8:52 pm INDICATION: Signs/Symptoms:femur fracture COMPARISON: Pelvic radiograph 01/27/2024. ACCESSION NUMBER(S): [id number]; [id number] ORDERING CLINICIAN: JADEN GONZALEZ TECHNIQUE: AP view [...] Song Lozoya. This study was interpreted at [place], [place]. MACRO: None Signed by: Nevaeh Lind 01/28/2024 12:34 AM Dictation workstation: [id number] [facility] XR PELVIS 1-2 VIEWSon 2023 XR PELVIS 1-2 VIEWS Interpreted By: Lelia Romo, STUDY: XR FEMUR LEFT 2+ VIEWS; XR PELVIS 1-2 VIEWS; 01/27/2024 3:04 pm INDICATION: Signs/Symptoms:fall. COMPARISON: None. ACCESSION NUMBER(S): [id number]; [id number] ORDERING CLINICIAN: DEZ HOOVER FINDINGS: Total bilateral hip arthroplasties.. There is a fracture through the proximal femur, inferior to the trochanters. No dislocation. Vascular calcification. Degenerative changes of the visualized left knee. Vascular calcification. IMPRESSION: A fracture through the proximal left femur. No dislocation. Signed by: Lelia Mclaughlin 01/27/2024 3:15 PM Dictation workstation: [id number] [facility] 01-08-2024 36 Appointment noted. [facility] 3601-07-2024 36 S: Patient spoke wit h [facility] nurse regarding Numbness of face, unregulated saliva [...] enough liquids, chapped lips.) Protocols used: Swallowing Chczhfbgaz-KNGDW-XT, Mouth Yhybjtxk-SXVJS-UX [facility] CNOVon 01-02-2024 CNOV Office Visit (WALKWA ) KATHYPATRICE CHEN ([id number]) 1940 M [place] Date Time Provider Department [...] adenopathy. Skin: (more content not included)... Normal [facility] Progress Noteon 03-20-2023 Progress Note Per [place] insurance med adherence report, patient is at risk for medication adherence on Lisinopril 20 mg. Per chart review, medication was discontinued - 10/26/22 office note: Possible side effects to lisinopril vs postural hypotension. Stop lisinopril, start amlodipine. Monitor BP at home. Discontinued by: SITA Cotto CNP on 10/26/2022 12:04 Reason: Side effects Normal [facility] CNOVon 02-19-2023 CNOV Office Visit (EXPKEN ) PATRICE JOEL ([id number]) 1940 M [place] Date Time Provider Department 02/19/23 11:15 AM JOE RODRIGUEZ EXPKEN During your visit today, we recorded the following information about you: Temperature Pulse Respiration Blood pressure 97.8 degrees 70/minute 16/minute 120/64 Weight Height 98.9 kg 1.803 m Joe Rodriguez APRN.NEGATIVE SPOTTER 02/19/2023 12:01 PM Signed Subjective Patrice Joel [...] Neurological: General: (more content not included)... Normal [facility] Free T4 [Mass/Vol]on 023 Free T4 Dialysis [Mass/Vol] 1.24 ng/dL 0.78 - 2.19 ng/dL [facility] Interpretation and review of laboratory results Normal [facility] T3on 09-06-2022 T3 [Mass/Vol] 137 ng/dL 97 - 169 ng/dL [facility] T3 [Mass/Vol]on 09-06-2022 Interpretation and review of laboratory results Normal [facility] TSHon 09-06-2022 TSH Qn 0.284 m[IU]/L Low [facility] TSH Qnon 09-06-2022 Interpretation and review of laboratory results Abnormal [facility] Lipid 1996 panelon 3 Cholesterol [Mass/Vol] 184 mg/dL NINF - 200 mg/dL [facility] Cholesterol in HDL [Mass/Vol] 60 mg/dL 40 - 60 mg/dL [facility] Cholesterol in LDL [Mass/Vol] 113 mg/dL High 0 - <100 [facility] Cholesterol.total/Ch olesterol in HDL [Mass ratio] 3 {ratio} [facility] Comment on above: Ref Range: < 3 Low Risk for CHD 3-6 Mod Risk for CHD > 6 High Risk for CHD Interpretation and review of laboratory results Abnormal [facility] Triglyceride [Mass/Vol] 56 mg/dL NINF - 150 mg/dL [facility] TSH Qn 0.432 m[IU]/L Low [facility] TSH Qnon 08-09-2022 Interpretation and review of laboratory results Abnormal [facility] CR Knee 3 Views Lefton 11-30 CR Knee 3 Views Left Patient Name: PATRICE JOHNSON Diagnostic Radiology ACCESSION EXAM DATE/TIME PROCEDURE ORDERING PROVIDER [id number] 11/30/2021 14:36 EDT CR Knee 3 Views Left HADLEY FALLON CPT code 63100 Reason For Exam (CR Knee 3 Views [...] Transcribed Date and Time: 12/02/2021 2:08 Normal [facility] CR Foot Complete 3+ Views [facility] 01-30-2020 CR Foot Complete 3+ Views Right Patient Name: PATRICE JOEL Diagnostic Radiology Exam Date/Time 01/30/2020 13:48:35 EDT Exam CR Foot Complete 3+ Views Right Ordering Physician MD NAIR JESSE Accession Number [id number] CPT4 Codes 01743 () Reason For Exam Injury Report Examination: [...] Transcribed Date and Time: 01/30/2020 2:16 Normal [facility] XR FOOT RIGHT (MIN 3 VIEWS)o n 01-30-2020 Patient Name: PATRICE KEEN ---Diagnostic Radiology--- Exam Date/Time 01/30/2020 13:48:35 EDT Exam CR Foot Complete 3+ Views Right Ordering Physician MD NAIR JESSE Accession Number [id number] CPT4 Codes 66467 () Reason For Exam Injury Report Examination: [...] fourth metatarsals. Osteopenia. Report Dictated on Workstation: Recovr --- Final --- Dictating Physician: MD BARROS ANTHONY J Signed Date and Time: 01/30/2020 2:15 pm Signed by: MD BARROS ANTHONY J Transcribed Date and Time: 01/30/2020 2:16 [facility]- [place], [place], [facility] Incoming Radiology Results From [facility] - 01/30/2020 2:16 PM EDT Patient Name: PATRICE JOEL ---Diagnostic Radiology--- Exam Date/Time 01/30/2020 13:48:35 EDT Exam CR Foot Complete 3+ Views Right Ordering Physician MD NAIR JESSE Accession Number [id number] CPT4 Codes 25099 () Reason For Exam Injury Report Examination: [...] fourth metatarsals. Osteopenia. Report Dictated on Workstation: Recovr --- Final --- Dictating Physician: MD BARROS ANTHONY J Signed Date and Time: 01/30/2020 2:15 pm Signed by: MD BARROS ANTHONY J Transcribed Date and Time: 01/30/2020 2:16 [place], [place] CNTHERAPYon 12-05-2017 CNTHERAPY OT/PT/Speech Visit (PTMDRG) ----PATRICE JOEL ([id number]) 1940 [address] [employer] Time Provider Department12/05/17 12:45 PM TRINI DEMPSEY (PT) PTMDRGEncounter Number: [id number] Time Provider Department [place]12/05/2017 12:45 PM [id number], JUDITH (PT)PTMDRG [place] CReason for Visit: PT Discharge [752]Visit [...] of appropriateinterventions.Mc iometric measurements, MMTBilling:Paul: Therapeutic Exercise (85077): 1:1 time: 39 minutes (3 units: 38-52mins)Total time: 39 minutesTrini Dempsey PT Normal [facility] PROGRESSon 12-05-2017 Protein HNO ID: [id number] thor: Trini OrantesPt) Kishor: (none)Author Type: Physical [...] selection ofappropriate interventions.Goniometric measurements, MMTBilling:Paul: Therapeutic Exercise (34181): 1:1 time: 39 minutes (3 units:38-52 mins)Total time: 39 minutesTrini Dempsey PT Normal [facility] CNTHERAPYon 12-03-2017 CNTHERAPY OT/PT/Speech Visit (PTMDRG) ----PATRICE JOEL ([id number]) 1940 [facility] Time Provider Department12/03/17 12:45 PM TRINI DEMPSEY (PT) PTMDRGEncounter Number: [id number] Time Provider Department [place]12/03/2017 12:45 PM [id number], JUDITH (PT)PTMDRG [facility] CReason for Visit: Physical Therapy [503]Visit Diagnosis:Decreased [...] 10 sec ab brace every 30 seconds2: Prydeinig Ball: Lat tilts and circles cw/ccw x [...] assist to assist patient while performing floor transfersBilling:[place]: Therapeutic Exercise (53458): 1:1 time: 35 minutes (3 units: 38-52mins)Therapeutic Activity (68004): 1:1 time: 5 minutes (no charge)Total time: 40 minutesTrini Dempsey PT [facility] PROGRESSon 12-03-2017 Protein HNO ID: [id number] thor: Trini (Pt) Kishor: (none)Author Type: Physical [...] 5 minutes 10 sec ab brace every 51vozeptb4: Prydeinig Ball: Lat tilts and circles cw/ccw x [...] by assist to assist patient while performingfloor transfersBilling:[place]: Therapeutic Exercise (99712): 1:1 time: 35 minutes (3 units:38-52 mins)Therapeutic Activity (56708): 1:1 time: 5 minutes (no charge)Total time: 40 minutesTrini Dempsey PT [facility] CNTHERAPYon 11-28-2017 CNTHERAPY OT/PT/Speech Visit (PTMDRG) ----PATRICE JOEL ([id number]) 1940 [facility] Time Provider Department11/28/17 12:45 PM TRINI DEMPSEY (PT) PTMDRGEncounter Number: [id number] Time Provider Department [place]11/28/2017 12:45 PM [id number], JUDITH (PT)PTMDRG [facility] CReason for Visit: Physical Therapy [503]Visit Diagnosis:Decreased [...] with use of close supervisionBilling:Paul: Therapeutic Exercise (06558): 1:1 time: 38 minutes (3 units: 38-52mins)Neuromuscular Re-education (29776): 1:1 time: 5 minutes (no charge)Total time: 43 minutesTrini Dempsey PT Normal [facility] PROGRESSon 11-28-2017 Protein HNO ID: [id number] thor: Trini (Pt) Kishor: (none)Author Type: Physical [...] activity.Insured patient safety with use of close supervisionBilling:[place]: Therapeutic Exercise (93998): 1:1 time: 38 minutes (3 units:38-52 mins)Neuromuscular Re-education (52278): 1:1 time: 5 minutes (no charge)Total time: 43 minutesTrini Dempsey PT [facility] CNTHERAPYon 11-26-2017 CNTHERAPY OT/PT/Speech Visit (PTMDRG) ----PATRICE JOEL ([id number]) 1940 MDate Time Provider Department11/26/17 12:45 PM TRINI DEMPSEY (PT) PTMDRGEncounter Number: [id number] Time Provider Department [place]11/26/2017 12:45 PM [id number], JUDITH (PT)PTMDRG [facility] CReason for Visit: Physical Therapy [503]Visit Diagnosis:Decreased [...] in the objective sectionJuan Antonio:Paul: Therapeutic Exercise (64442): 1:1 time: 37 minutes (3 units: 38-52mins)Gait Training (08756): 1:1 time: 3 minutes (no charge)Total time: 40 minutesTrini Dempsey PT Normal [facility] PROGRESSon 11-26-2017 Protein HNO ID: [id number] thor: Trini Temple) Kishor: (none)Author Type: Physical [...] identified in the objectivesection above.Billing:Kylee: Therapeutic Exercise (80694): 1:1 time: 37 minutes (3 units:38-52 mins)Gait Training (17704): 1:1 time: 3 minutes (no charge)Total time: 40 minutesTrini Dempsey PT [facility] CNTHERAPYon 11-21-2017 CNTHERAPY OT/PT/Speech Visit (PTMDRG) ----PATRICE JOEL ([id number]) 1940 [facility] Time Provider Department11/21/17 12:45 PM TRINI DEMPSEY (PT) PTMDRGEncounter Number: [id number] Time Provider Department [place]11/21/2017 12:45 PM [id number], JUDITH (PT)PTMDRG [facility] CRecarondelet health for Visit: Physical Therapy [503]Primary Visit Diagnosis:Bilateral [...] facilitated with verbal andvisual cuing.Billing:Kylee: Therapeutic Exercise (98644): 1:1 time: 45 minutes (3 units: 38-52mins)Total time: 45 minutesTrini Dempsey PT Normal [facility] PROGRESSon 11-21-2017 Protein HNO ID: [id number] thor: Trini (Pt) Kishor: (none)Author Type: Physical [...] facilitated with verbaland visual cuing.Billing:Kylee: Therapeutic Exercise (94928): 1:1 time: 45 minutes (3 units:38-52 mins)Total time: 45 minutesTrini Dempsey PT [facility] CNTHERAPYon 11-14-2017 CNTHERAPY OT/PT/Speech Visit (PTMDRG) ----KATHYPATRICE CHEN ([id number]) 1940 [address] Time Provider Department11/14/17 10:15 AM TRINI DEMPSEY (PT) PTMDRGEncounter Number: [id number] Time Provider Department [place]11/14/2017 10:15 AM [id number], JUDITH (PT)PTMDRG [facility] CReason for Visit: PT Nishaal [747]Primary Visit [...] activity.Insured patient safety with use of close supervisionBilling:[place]: Evaluation - Low Complexity (56270)Therapeutic Exercise (11950): 1:1 time: 10 minutes (1 unit: 8-22 mins)Neuromuscular Re-education (02134): 1:1 time: 5 minutes (no charge)Total time: 55 minutesTrini Dempsey PT Normal [facility] PROGRESSon 11-14-2017 Protein HNO ID: [id number] thor: Trini Iverson: (none)Author Type: Physical TherapistType: [...] of close supervisionBilling:Paul: Evaluation - Low Complexity (33309)Therapeutic Exercise (34131): 1:1 time: 10 minutes (1 unit: 8-22 mins)Neuromuscular Re-education (45115): 1:1 time: 5 minutes (no charge)Total time: 55 minutesTrini Dempsey PT [facility] PROGRESSon 11-07-2017 Protein HNO ID: [id number] thor: Sumaya (Ct) Brinda, CTService: (none)Author Type: Clinical TechnicianType: Progress NotesFiled: 11/07/2017 11:11 AMNote Text:NAME:Patrice JoelDATE: November 07, 2017CCF#: [id number] X-Ray COMPLETEDTECH ID SIGN: SUMAYA ALCANTARA [facility] XR PELVIS 1V APon 11-07-2017 XR PELVIS 1V AP * * *Final Report* * *DATE OF EXAM: Nov 07 2017 8:10AM MAGED 5239 - XR PELVIS 1V AP / REASON: [id number], unspecified * * * * Physician Interpretation [...] RIDER MD on Nov 07 2017 3:48PM [id number] [facility] Vital Signs Date Time Vital Sign Value Performing Clinician Hei yoselin 02-19-2024 15:51-0400 Body height 185.4 cm Michelle Bragg PA-C Work Phone: [facility] 02-19-2024 15:51-0400 Body mass index (BMI) [Ratio] 26.12 kg/m2 Michelle Bragg PA-C Work Phone: [facility] 02-19-2024 15:51-0400 Body weight 89.81 kg Michelle Bragg PA-C Work Phone: [facility] 02-04-2024 15:58-0400 Body temperature 97.3 [degF] Jaden Gonzalez MD Work Phone: [facility] 02-04-2024 15:58-0400 Diastolic blood pressure 73 mm[Hg] Jaden Gonzalez MD Work Phone: [facility] 02-04-2024 15:58-0400 Heart rate 80 /min Jaden Gonzalez MD Work Phone: [facility] 02-04-2024 15:58-0400 Respiratory rate 18 /min Jaden Gonzalez MD Work Phone: [facility] 02-04-2024 15:58-0400 SaO2% (BldA) [Mass fraction] 96 % Jaden Gonzalez MD Work Phone: [facility] 02-04-2024 15:58-0400 Systolic blood pressure 114 mm[Hg] Jaden Gonzalez MD Work Phone: [facility] 01-28-2024 06:42-0400 Body height 185.4 cm Jaden Gonzalez MD Work Phone: [facility] 01-28-2024 06:42-0400 Body mass index (BMI) [Ratio] 26.12 kg/m2 Jaden Gonzalez MD Work Phone: [facility] 01-28-2024 06:42-0400 Body weight 89.81 kg Jaden Gonzalez MD Work Phone: [facility] 01-27-2024 09:57-0400 Body height 185.4 cm Joey rodriguez MD Work Phone: [facility] 01-27-2024 09:57-0400 Body mass index (BMI) [Ratio] 26.12 kg/m2 Joey Robison MD Work Phone: [facility] 01-27-2024 09:57-0400 Body temperature 98.2 [degF] Joey rodriguez MD Work Phone: [facility] 01-27-2024 09:57-0400 Body weight 89.81 kg Joey rodriguez MD Work Phone: [facility] 01-27-2024 09:57-0400 Diastolic blood pressure 84 mm[Hg] Joey Robison MD Work Phone: [facility] 01-27-2024 09:57-0400 Heart rate 63 /min Joey rodriguez MD Work Phone: [facility] 01-27-2024 09:57-0400 Respiratory rate 18 /min Joey rodriguez MD Work Phone: [facility] 01-27-2024 09:57-0400 SaO2% (BldA) [Mass fraction] 96 % Joey Robison MD Work Phone: [facility] 01-27-2024 09:57-0400 Systolic blood pressure 152 mm[Hg] Joey Robison MD Work Phone: [facility] 01-02-2024 11:02-0400 Body height 180.3 cm Toya DAVE-C Work Phone: [facility] 01-02-2024 11:02-0400 Body mass index (BMI) [Ratio] 28.76 kg/m2 Toya DAVE-C Work Phone: [facility] 01-02-2024 11:02-0400 Body temperature 97.39 [degF] Toya DAVE-C Work Phone: [facility] 01-02-2024 11:02-0400 Body weight 93.55 kg Toya DAVE-C Work Phone: [facility] 01-02-2024 11:02-0400 Diastolic blood pressure 74 mm[Hg] Toya Slabaugh PA-C Work Phone: [facility] 01-02-2024 11:02-0400 Heart rate 56 /min Toya Jacobsen PA-C Work Phone: [facility] 01-02-2024 11:02-0400 Respiratory rate 18 /min Toyamakenna Liaugh PA-C Work Phone: [facility] 01-02-2024 11:02-0400 SaO2% (BldA) [Mass fraction] 100 % Toya Liaukathryn PA-C Work Phone: [facility] 01-02-2024 11:02-0400 Systolic blood pressure 159 mm[Hg] Toyamakenna Liaugh PA-C Work Phone: [facility] 02-19-2023 11:28-0400 Body height 180.3 cm Joe Brant HOTEL SERVICES SALES REPRESENTATIVE.NEGATIVE SPOTTER Work Phone: [facility] 02-19-2023 11:28-0400 Body temperature 97.81 [degF] Joe Brant HOTEL SERVICES SALES REPRESENTATIVE.NEGATIVE SPOTTER Work Phone: [facility] 02-19-2023 11:28-0400 Body weight 98.88 kg Joe Brant HOTEL SERVICES SALES REPRESENTATIVE.NEGATIVE SPOTTER Work Phone: [facility] 02-19-2023 11:28-0400 Diastolic blood pressure 64 mm[Hg] Joe Brant HOTEL SERVICES SALES REPRESENTATIVE.NEGATIVE SPOTTER Work Phone: [facility] 02-19-2023 11:28-0400 Heart rate 70 /min Joe Brant HOTEL SERVICES SALES REPRESENTATIVE.NEGATIVE SPOTTER Work Phone: [facility] 02-19-2023 11:28-0400 Respiratory rate 16 /min Joe Brant HOTEL SERVICES SALES REPRESENTATIVE.NEGATIVE SPOTTER Work Phone: [facility] 02-19-2023 11:28-0400 SaO2% (BldA) [Mass fraction] 99 % Joe Brant HOTEL SERVICES SALES REPRESENTATIVE.NEGATIVE SPOTTER Work Phone: [facility] 02-19-2023 11:28-0400 Systolic blood pressure 120 mm[Hg] Joe Brant HOTEL SERVICES SALES REPRESENTATIVE.NEGATIVE SPOTTER Work Phone: [facility] 11-22-2022 11:05-0400 Body height 185.4 cm Hadley Fallon MD Work Phone: [facility] [employer] 11-22-2022 11:05-0400 Body mass index (BMI) [Ratio] 28.89 kg/m2 Hadley Fallon MD Work Phone: [facility] [employer] 11-22-2022 11:05-0400 Body weight 99.34 kg Hadley Fallon MD Work Phone: [facility] 11-22-2022 11:05-0400 Diastolic blood pressure 72 mm[Hg] Hadley Fallon MD Work Phone: [facility] [employer] 11-22-2022 11:05-0400 Heart rate 58 /min Hadley Fallon MD Work Phone: [facility] [employer] 11-22-2022 11:05-0400 SaO2% (BldA) [Mass fraction] 96 % Hadley Fallon MD Work Phone: [facility] [employer] 11-22-2022 11:05-0400 Systolic blood pressure 125 mm[Hg] Hadley Fallon MD Work Phone: [facility] [employer] 10-26-2022 11:45-0400 Diastolic blood pressure 76 mm[Hg] Larissa Denton HOTEL SERVICES SALES REPRESENTATIVE - NEGATIVE SPOTTER Work Phone: [facility] [employer] 10-26-2022 11:45-0400 Systolic blood pressure 128 mm[Hg] Larissa Denton HOTEL SERVICES SALES REPRESENTATIVE - NEGATIVE SPOTTER Work Phone: [facility] [employer] 10-26-2022 11:25-0400 Body height 185.4 cm Larissa Denton APR N - NEGATIVE SPOTTER Work Phone: [facility] [employer] 10-26-2022 11:25-0400 Body mass index (BMI) [Ratio] 29.42 kg/m2 Larissa Denton HOTEL SERVICES SALES REPRESENTATIVE - NEGATIVE SPOTTER Work Phone: [facility] [employer] 10-26-2022 11:25-0400 Body weight 101.15 kg Larissa Denton APR N - NEGATIVE SPOTTER Work Phone: [facility] 10-26-2022 11:25-0400 Heart rate 58 /min Larissa Denton APR N - NEGATIVE SPOTTER Work Phone: [facility] 10-26-2022 11:25-0400 SaO2% (BldA) [Mass fraction] 98 % Larissa Denton HOTEL SERVICES SALES REPRESENTATIVE - NEGATIVE SPOTTER Work Phone: [facility] 09-05-2022 09:57-0400 Diastolic blood pressure 74 mm[Hg] Hadley Fallon MD Work Phone: [facility] 09-05-2022 09:57-0400 Systolic blood pressure 162 mm[Hg] Hadley Fallon MD Work Phone: [facility] 09-05-2022 09:25-0400 Body height 185.4 cm Hadley Fallon MD Work Phone: [facility] 09-05-2022 09:25-0400 Body mass index (BMI) [Ratio] 31.27 kg/m2 Hadley Fallon MD Work Phone: [facility] [employer] 09-05-2022 09:25-0400 Body weight 107.5 kg Hadley Fallon MD Work Phone: [facility] 09-05-2022 09:25-0400 Heart rate 56 /min Hadley Fallon MD Work Phone: [facility] [employer] 09-05-2022 09:25-0400 SaO2% (BldA) [Mass fraction] 98 % Hadley Fallon MD Work Phone: [facility] [employer] 08-15-2022 08:27-0400 Body height 185.4 cm Matthew Perez PA-C Work Phone: [facility] [employer] 08-15-2022 08:27-0400 Body mass index (BMI) [Ratio] 31.14 kg/m2 Matthew Perez PA-C Work Phone: [facility] [employer] 08-15-2022 08:27-0400 Body temperature 97.2 [degF] Matthew Perez PA-C Work Phone: [facility] [employer] 08-15-2022 08:27-0400 Body weight 107.05 kg Matthew DAVE-C Work Phone: [facility] [employer] 08-15-2022 08:27-0400 Diastolic blood pressure 62 mm[Hg] Matthew DAVE-C Work Phone: [facility] [employer] 08-15-2022 08:27-0400 Heart rate 55 /min Matthew DAVE-C Work Phone: [facility] [employer] 08-15-2022 08:27-0400 Systolic blood pressure 140 mm[Hg] Matthew DAVE-C Work Phone: [facility] [employer] 08-08-2022 10:42-0400 Diastolic blood pressure 82 mm[Hg] Hadley Fallon MD Work Phone: [facility] [employer] 08-08-2022 10:42-0400 Systolic blood pressure 154 mm[Hg] Hadley Fallon MD Work Phone: [facility] [employer] 08-08-2022 09:19-0400 Body height 185.4 cm Hadley Fallon MD Work Phone: [facility] [employer] 08-08-2022 09:19-0400 Body mass index (BMI) [Ratio] 31.14 kg/m2 Hadley Fallon MD Work Phone: [facility] [employer] 08-08-2022 09:19-0400 Body weight 107.05 kg Hadley Fallon MD Work Phone: [facility] [employer] 08-08-2022 09:19-0400 Heart rate 74 /min Hadley Fallon MD Work Phone: [facility] [employer] 08-08-2022 09:19-0400 SaO2% (BldA) [Mass fraction] 99 % Hadley Fallon MD Work Phone: [facility] [employer] 05-28-2022 17:31-0500 Body weight 106.14 kg Letty Shen APRN.CNP Work Phone: [facility] 05-28-2022 17:31-0500 Diastolic blood pressure 87 mm[Hg] Letty Shen HOTEL SERVICES SALES REPRESENTATIVE.NEGATIVE SPOTTER Work Phone: [facility] 05-28-2022 17:31-0500 Heart rate 64 /min Letty Shen HOTEL SERVICES SALES REPRESENTATIVE.NEGATIVE SPOTTER Work Phone: [facility] 05-28-2022 17:31-0500 Respiratory rate 16 /min Letty Shen HOTEL SERVICES SALES REPRESENTATIVE.NEGATIVE SPOTTER Work Phone: [facility] 05-28-2022 17:31-0500 SaO2% (BldA) [Mass fraction] 100 % Letty Shen HOTEL SERVICES SALES REPRESENTATIVE.NEGATIVE SPOTTER Work Phone: [facility] 05-28-2022 17:31-0500 Systolic blood pressure 153 mm[Hg] Letty Shen HOTEL SERVICES SALES REPRESENTATIVE.NEGATIVE SPOTTER Work Phone: [facility] 09-01-2020 11:06-0400 Diastolic blood pressure 88 mm[Hg] [...] 34.02 kg/m2 Alex N[facility] MD [facility] Work Phone: 08-28-2020 11:45-0400 Body weight 120.2 kg Alex Nair MD Work Phone: [employer] Work Phone: 01-30-2020 15:28-0400 BP Diastolic 85 mm[Hg] Alex Nair [employer] , MIKE 01-30-2020 15:28-0400 BP Systolic 153 mm[Hg] Alex Nair [employer] , [place] 01-30-2020 15:28-0400 Pulse (Heart Rate) 59 /min Alex Nair [employer], [place] 01-30-2020 15:28-0400 Pulse Oximetry 96 % Alex DobbinsAirDroids- [employer] , MIKE 01-30-2020 15:28-0400 Respiratory Rate 16 /min Alex Nair [facility]- [facility], [place] 01-30-2020 13:40-0400 BMI (Body Mass Index) 34.02 kg/m2 Alex Nair [employer], [place]KE 01-30-2020 13:40-0400 Body Temperature 98.49 [degF] Alex Nair [facility], MIKE 01-30-2020 13:40-0400 Body weight 120.2 kg Alex Nair [employer] , MIKE 01-30-2020 13:40-0400 Height 188 cm Alex [employer] , MIKE Encounters Encounter Date Encounter Type Care Provider Facility Start: 04-16-2024 End: 04-16-2024 Subsequent hospital visit by physician Logan [facility] 1 [facility] Comment on above: 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 Start: 02-19-2024 End: 02-19-2024 ambulatory [facility] Start: 01-27-2024 End: 01-27-2024 Emergency department patient visit JADEN GONZALEZ [facility] Start: 01-27-2024 End: 02-04-2024 Evaluation and management of inpatient DEZ R KIKO [facility] Work Phone: Comment on above: Closed fracture of l eft femur, unspecified fracture morphology, unspecified portion of femur, initial encounter (Multi) (Primary Dx); Periprosthetic fracture of proximal end of femur Start: 01-27-2024 End: 01-27-2024 Emergency department patient visit JOEY ROBISON [facility] Work Phone: Comment on above: 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 Start: 01-02-2024 End: 01-02-2024 Patient encounter procedure Toya Jacobsen PA-C Work Phone: [facility] Comment on above: Bilateral impacted c erumen (Primary Dx) Start: 02-19-2023 End: 02-19-2023 ambulatory DALTON GRAHAM Facility:[facility] Start: 02-19-2023 End: 02-19-2023 Office outpatient new 30 minutes Joe Rodriguez APRN.CNP Work Phone: [facility] Comment on above: Puncture wound of le ft index finger (Primary Dx); Localized erythema; Visit for wound check Start: 01-03-2023 Telephone encounter Hadley stubbs MD Work Phone: [facility] Comment on above: Orders Start: 12-24-2022 Telephone encounter Hadley stubbs MD Work Phone: [facility] Comment on above: Results Start: 12-07-2022 End: 12-07-2022 ambulatory Hadley Fallon MD Work Phone: [facility] Comment on above: Arrived Start: 11-22-2022 End: 11-22-2022 Assay of hemosiderin, quant Hadley Fallon MD Work Phone: [facility] Work Phone: Start: 11-22-2022 End: 11-22-2022 Patient encounter procedure Hadley Fallon MD Work Phone: [facility] Comment on above: Routine general medi sherry examination at health care facility (Primary Dx); Primary hypertension; Elevated PSA; Vaccine refused by patient Start: 10-26-2022 End: 10-26-2022 Office outpatient visit 25 minutes Larissa Solares CNP Work Phone: [facility] Comment on above: Primary hypertension (Primary Dx); Dizziness Start: 10-18-2022 Telephone encounter Hadley stubbs MD Work Phone: [facility] Start: 09-06-2022 End: 09-06-2022 ambulatory Hadley Fallon MD Work Phone: [facility] Comment on above: Other specified abno rmal findings of blood chemistry (Primary Dx) Start: 09-05-2022 End: 09-05-2022 Office outpatient visit 25 minutes Hadley Fallon MD Work Phone: [facility] Comment on above: Primary hypertension (Primary Dx); Elevated TSH Start: 08-17-2022 ambulatory Bev Callahan RN [facility] Communication Start: 08-17-2022 Patient encounter procedure Bev Callahan RN [facility] Start: 08-15-2022 End: 08-15-2022 Office outpatient visit 15 minutes Matthew Perez PA-C Work Phone: [facility] Comment on above: Pain due to onychomy cosis of toenails of both feet (Primary Dx); Age-related physical debility; Enlarged and hypertrophic nails Start: 08-09-2022 End: 08-09-2022 ambulatory Hadley Fallon MD Work Phone: [facility] Comment on above: Essential (primary) hypertension (Primary Dx) Start: 08-08-2022 End: 08-08-2022 Office outpatient visit 40 minutes Hadley Fallon MD Work Phone: [facility] Comment on above: Primary hypertension (Primary Dx); Dizziness and giddiness; Observed sleep apnea; Enlarged and hypertrophic nails; Newly recognized murmur Start: 05-28-2022 End: 05-28-2022 Patient encounter procedure Letty Shen APRN.CNP Work Phone: [facility] Comment on above: Elevated blood press ure reading (Primary Dx) Start: 11-30-2021 End: 11-30-2021 Subsequent hospital visit by physician Hadley Fallon MD Work Phone: [facility] X[facility] Comment on above: Injury of left [...] Dx) Start: 12-05-2017 End: 12-05-2017 Patient encounter [facility] Start: 12-03-2017 End: 12-03-2017 Patient encounter [facility] Start: 11-28-2017 End: 11-28-2017 Patient encounter [facility] Start: 11-26-2017 End: 11-26-2017 Patient encounter [facility] Start: 11-21-2017 End: 11-21-2017 Patient encounter [facility] Start: 11-14-2017 End: 11-14-2017 Patient encounter [facility] Start: 11-07-2017 End: 11-07-[address] [facility] Procedures Date Procedure Procedure Detail Performing Clinician Start: 01-31-2024 Blood count complete automated Chani Mosquera PA-C Work Phone: Start: 01-30-2024 Cyanocobalamin vitamin [...] 01-28-2024 XR tomography Unspecified body region Francia Girard MD Work Phone: Start: 01-28-2024 End: 01-28-2024 Optx fem shft fx w/plate/screws w/wo cerclage Frederic Buenrostro MD Work Phone: Start: 01-27-2024 Ct abdomen [...] Author Start: 08-10-2027 Lipid panel Lipid Panel [facility] Start: 12-07-2025 Diabetes Screening Diabetes Screening [facility] Start: 03-17-2024 End: 03-17-2024 Patient encounter procedure 03/17/2024 2:00 PM EST [facility] [address] [facility] [address] [place] [address] Michelle Bragg PA-C [address] Department of Orthopedics [place], [place] [id number] [facility] Yessifrannie Eisenbergili Start: 03-11-2024 End: 03-11-2024 Patient encounter procedure 03/11/2024 1:40 PM EDT Office Visit [facility] [address] [place] [address] Hadley Fallon MD [address] [place] [address] [facility] Start: 02-14-2024 End: 02-14-2024 Patient encounter procedure 02/14/2024 11:15 AM EDT Office Visit [facility] [address] [facility] 5th [place] [address] Michelle Bragg PA-C [address] Department of Orthopedics [place], [place] [id number] [facility] Start: 01-12-2024 COVID-19 Vaccine () COVID-19 Vaccine () [facility] Start: 01-12-2024 COVID-19 Vaccine ( season) COVID-19 Vaccine ( season) [facility] Start: 01-12-2024 Influenza vaccination Influenza Vaccine (#1) [facility] Start: 11-25-2023 End: 11-25-2023 Patient encounter procedure 11/25/2023 10:20 AM EDT Office Visit [facility] [address] [place] [id number] Hadley Fallon MD [address] [place], [place] [id number] [facility] Start: 11-23-2023 Depression Screening Depression Screening [facility] Start: 05-13-2023 Advance Directive Discussion Advance Directive Discussion [facility] Start: 05-13-2023 Medicare Advantage Annual Wellness Visit Medicare [facility] Annual Wellness Visit [facility] Start: 01-11-2023 Covid-19 Vaccine ( season) Covid-19 Vaccine ( season) [facility] Start: 01-11-2023 Influenza vaccination [facility] Start: 01-08-2023 End: 01-08-2023 Patient encounter procedure 01/08/2023 8:00 AM EDT Appointment [facility] [address] [place] [phone] Hadley Fallon MD [address] [place], [place] [id number] [facility] Start: 11-22-2022 End: 11-23-2023 CBC panel - Blood by Automated count CBC Lab Routine Primary hypertension Expected: 11/22/2022 (Approximate), Expires: 11/23/2023 [facility] Work Phone: Comment on above: Expected: 11/22/2022 (Approximate), Expi res: 11/23/2023 Start: 11-22-2022 End: 11-23-2023 Comprehensive metabolic 1998 panel - Serum or Plasma Comprehensive metabolic panel Lab Routine Primary hypertension Expected: 11/22/2022 (Approximate), Expires: 11/23/2023 [facility] Comment on above: Expected: 11/22/2022 (Approximate), Expi res: 11/23/2023 Start: 11-22-2022 End: 11-23-2023 PSA screening PSA Screening Lab Routine Elevated PSA Expected: 11/22/2022 (Approximate), Expires: 11/23/2023 [facility] Comment on above: Expected: 11/22/2022 (Approximate), Expi res: 11/23/2023 Start: 11-22-2022 End: 11-22-2022 Patient encounter procedure [facility] Start: 10-29-2022 End: 10-29-2022 Patient encounter procedure 10/29/2022 Office Visit Family Medicine Hadley Fallon MD [address] [place] [address] [address] [place], [place] [id number] [facility] Start: 10-28-2022 Annual Wellness Visit (AWV) Annual Wellness Visit (AWV) [facility] Start: 10-27-2022 Depression Screen Depression Screen [facility] Start: 10-27-2022 Prostate specific antigen measurement Prostate Specific Antigen (PSA) Screening or Monitoring [facility] Start: 10-05-2022 End: 10-05-2022 Patient encounter procedure 10/05/2022 Office Visit Family Medicine Hadley Fallon MD [address] [place] [address] [address] [place], [place] [phone] [facility] Start: 10-01-2022 End: 10-01-2022 Patient encounter procedure 10/01/2022 Appointment Cardiology [facility] Start: 09-25-2022 End: 09-25-2022 Patient encounter procedure 09/25/2022 Office Visit Sleep Medicine Hadley Fallon MD [address] [place] [address] [address] [place], [place] [id number] [facility] Start: 09-05-2022 End: 09-06-2023 Thyrotropin [Units/volume] in Serum or Plasma TSH Lab Routine Primary hypertension Elevated TSH Expected: 09/05/2022 (Approximate), Expires: 09/06/2023 [facility] [employer] Work Phone: Comment on above: Expected: 09/05/2022 (Approximate), Expi res: 09/06/2023 Start: 09-05-2022 End: 09-06-2023 Thyroxine (T4) free [Mass/volume] in Serum or Plasma T4, free Lab Routine Elevated TSH Expected: 09/05/2022 (Approximate), Expires: 09/06/2023 [facility] [employer] Comment on above: Expected: 09/05/2022 (Approximate), Expi res: 09/06/2023 Start: 09-05-2022 End: 09-06-2023 Triiodothyronine (T3) [Mass/volume] in Serum or Plasma T3 Lab Routine Elevated TSH Expected: 09/05/2022 (Approximate), Expires: 09/06/2023 [facility] Comment on above: Expected: 09/05/2022 (Approximate), Expi res: 09/06/2023 Start: 09-05-2022 End: 09-05-2022 Patient encounter procedure 09/05/2022 Office Visit Family Medicine Hadley Fallon MD [facility] [place] [address] [facility] Start: 08-08-2022 End: 08-09-2023 Home sleep test Home sleep test Sleep Center Routine Primary hypertension Observed sleep apnea Expected: 08/08/2022 (Approximate), Expires: 08/09/2023 [facility] [employer] Work Phone: Comment on above: Expected: 08/08/2022 (Approximate), Expi res: 08/09/2023 Start: 08-08-2022 End: 08-09-2023 Lipid 1996 panel - Serum or Plasma Lipid panel Lab Routine Primary hypertension Expected: 08/08/2022 (Approximate), Expires: 08/09/2023 [facility] Comment on above: Expected: 08/08/2022 (Approximate), Expi res: 08/09/2023 Start: 08-08-2022 End: 08-09-2023 Thyrotropin [Units/volume] in Serum or Plasma TSH Lab Routine Primary hypertension Expected: 08/08/2022 (Approximate), Expires: 08/09/2023 [facility] Comment on above: Expected: 08/08/2022 (Approximate), Expi res: 08/09/2023 Start: 08-08-2022 End: 08-08-2024 US Heart Transthoracic Transthoracic echocardiogram (TTE) limited with contrast, bubble, strain, and 3D PRN CV Echocardiography Routine Newly recognized murmur Expected: 08/08/2022 (Approximate), Expires: 08/08/2024 [facility] Comment on above: Expected: 08/08/2022 (Approximate), Expi res: 08/08/2024 Start: 05-13-2022 ADVANCE DIRECTIVE DISCUSSION ADVANCE DIRECTIVE DISCUSSION [facility] Start: 05-13-2022 DEPRESSION ASSESSMENT DEPRESSION ASSESSMENT [facility] Start: 01-11-2022 Influenza vaccination [facility] Start: 01-11-2021 Influenza vaccination Flu vaccine (Season Ended) [facility] Work Phone: Start: 02-05-2020 Annual Wellness Visit (AWV) Annual Wellness Visit (AWV) [facility] Work Phone: Start: 01-12-2020 Influenza vaccination Flu vaccine (#1) [place], [place] Start: 2014 RSV High Risk: (Elderly (60+) or Population) (1 - 1-dose 75+ series) RSV High Risk: (Elderly (60+) or Population) (1 - 1-dose 75+ series) [facility] Start: 07-18-2013 DIABETES SCREEN DIABETES SCREEN [facility] Start: 07-18-2013 Diabetes Screening Diabetes Screening [facility] Start: 2004 Pneumococcal 65+ years Vaccine (1 - PCV) Pneumococcal 65+ years Vaccine (1 - PCV) [facility] Start: 2004 Pneumococcal 65+ years Vaccine (1 of 1 - PPSV23) Pneumococcal 65+ years Vaccine (1 of 1 - PPSV23) [place], [place] Start: 2004 Pneumococcal Vaccine: 65+ (1 - PCV) Pneumococcal Vaccine: 65+ (1 - PCV) [facility] Start: 2004 Pneumococcal Vaccine: 65+ (1 of 1 - PCV) Pneumococcal Vaccine: 65+ (1 of 1 - PCV) [facility] Start: 2004 Pneumococcal Vaccine: 65+ Years (1 - PCV) Pneumococcal Vaccine: 65+ Years (1 - PCV) [facility] Start: 2004 Pneumococcal Vaccine: 65+ Years (1 of 1 - PCV) Pneumococcal Vaccine: 65+ Years (1 of 1 - PCV) [facility] Start: 2004 PNEUMOCOCCAL: 65+ (1 - PCV) PNEUMOCOCCAL: 65+ (1 - PCV) [facility] Start: 1999 RSV Immunization aged 60 or older (1 - 1-dose 60+ series) RSV Immunization aged 60 or older (1 - 1-dose 60+ series) [facility] Start: 1999 RSV patients and/or patients aged 60+ years (1 - 1-dose 60+ series) RSV patients and/or patients aged 60+ years (1 - 1-dose 60+ series) [facility] Start: 1999 RSV Vaccine (1 - 1-dose 60+ series) RSV Vaccine (1 - 1-dose 60+ series) [facility] Start: 1989 Shingles Vaccine (1 of 2) Shingles Vaccine (1 of 2) [facility] Start: 1989 SHINGRIX VACCINE (1 of 2) SHINGRIX VACCINE (1 of 2) [facility] Start: 1989 Zoster Vaccines (1 of 2) Zoster Vaccines (1 of 2) [facility] Start: 1961 DTaP/Tdap/Td Vaccines (1 - Tdap) DTaP/Tdap/Td Vaccines (1 - Tdap) [facility] Start: 1958 DTaP/Tdap/Td vaccine (1 - Tdap) DTaP/Tdap/Td vaccine (1 - Tdap) [facility] Start: 1958 DTaP/Tdap/Td Vaccines (1 - Tdap) DTaP/Tdap/Td Vaccines (1 - Tdap) [facility] Start: 1958 Urine microalbumin profile [facility] Start: 1957 Anxiety Screening Anxiety Screening [facility] Start: 1957 Depression Screening Depression Screening [facility] Start: 1955 COVID-19 Vaccine (1) COVID-19 Vaccine (1) [facility] Work Phone: Start: 1951 Depression Screening Depression Screening [facility] Start: 1939 COVID-19 Vaccine (#1) COVID-19 Vaccine (#1) [facility] Start: 1939 Annual wellness visit Welcome to Medicare Visit [facility] Start: 1939 Hepatitis B Vaccines (1 of 3 - 3-dose series) Hepatitis B Vaccines (1 of 3 - 3-dose series) [facility] Start: 1939 Medicare Annual Wellness Visit Medicare Annual Wellness Visit (AWV) [facility] End: 01-27-2024 ECG 12 Lead [facility] Work Phone: Comment on above: Once for 1 Occurrences starting 01/27/20 until 01/27/2024 End: 01-27-2024 Incentive spirometry Instruct Incentive spirometry Instruct Respiratory Care Routine Once for 1 Occurrences starting 01/27/2024 until 01/27/2024 [facility] Work Phone: Comment on above: Once for 1 Occurrences starting 01/27/20 until 01/27/2024 OUTSIDE PROCEDURE SCAN OUTSIDE P ROCEDURE SCAN Procedures Ordered: 08/09/2022 [facility] Comment on above: Ordered: 08/09/2022 OUTSIDE PROCEDURE SCAN OUTSIDE P ROCEDURE SCAN Procedures Ordered: 09/06/2022 [facility] Comment on above: Ordered: 09/06/2022 OUTSIDE PROCEDURE SCAN OUTSIDE P ROCEDURE SCAN Procedures Ordered: 12/07/2022 [facility] Comment on above: Ordered: 12/07/2022 Removal impacted cer umen irrigation/lvg unilat AMBULATORY EAR LAVAGE/IRRIGATION Procedures Routine Bilateral impacted cerumen Ordered: 01/02/2024 [facility] Work Phone: Comment on above: Ordered: 01/02/2024 End: 02-19-2024 XR Femur - left 2 Views [facility] Work Phone: Comment on above: Once for 1 Occurrences starting 02/19/20 until 02/19/2024 End: 04-16-2024 XR Femur - left 2 Views [facility] Work Phone: Comment on above: Once for 1 Occurrences starting 04/16/20 until 04/16/2024 End: 11-30-2021 XR KNEE LEFT (3 VIEWS) [facility] Work Phone: Comment on above: 1 Occurrences starting 11/30/2021 until 11/30/2021 End: 04-16-2024 XR Pelvis 1 or 2 Views [facility] Service Area Work Phone: Comment on above: Once for 1 Occurrences starting 04/16/20 until 04/16/2024 Payers Date Payer Category Payer Medicare (Managed Care) FOR[facility]LY [facility] [id number] 2023 Unknown [id number] 2022 Medicare [id number] 2020 Unknown [id number] 2019 Unknown [id number] 1939 Unknown [id number] 2.1245 1939 Unknown [id number]. 2.1245 1939 Unknown [id number]. 2.1245 1939 Unknown [id number] 2.1242 1939 Unknown [id number] 2.1242 1939 Unknown [id number] [id number] 1939 Unknown [id number] 2.1243 1939 Unknown [id number]. 2.1243 1939 Unknown [id number] [id number] Social History Date Type Detail Facility Tobacco smoking status COIS Unknown if ever smoked [place], [place] Start: 1940 Sex Assigned At Not on file [place] Start: 11-20-2021 End: 04-16-2024 Exposure to SARS-CoV-2 (event) Not sure [place] Start: 08-28-2020 End: 08-15-2022 Tobacco smoking [...] current (pack per day) - Reported 3 [facility] Start: 04-22-2019 Alcohol Comment Occasionally [facility] Start: 08-08-2022 Alcohol Comment half of a glas s of wine with dinner [facility] Start: 10-26-2022 End: 01-29-2024 Tobacco use panel [facility] How often to you hav e a drink containing alcohol? 4 or more times a week [facility] How many standard drinks containing alcohol do you have on a typical day? 1 or 2 [facility] How often do you hav e 6 or more drinks on 1 occasion? Never [facility] National Score (1-100), lower number is lower risk 65 [facility] Start: 01-28-2024 Tobacco smoking status NHIS Never smoked tobacco [facility] How often to you hav e a drink containing alcohol? 2-3 time sa week [facility] Work Phone: How many standard drinks containing alcohol do you have on a typical day? 3 or 4 [facility] Work Phone: In the past 12 months, was there a time when you were not able to pay the mortgage or rent on time? No [facility] Work Phone: Tobacco smoking status NHIS Tobacco smoking consumption unknown [facility] Work Phone: NEGATED: Highlighted rowStart: NINF History of tobacco use Passive smoker [facility] Work Phone: Medical Equipment Procedure Code Equipment Code Equipment Origin al Text Equipment Identifier Dates Screw, Variable Angle, 46mm, Locking, St - [id number] Start: 01-28-2024 Screw, Variable Angle, 44mm, Locking, St - [id number] Start: 01-28-2024 Screw, Variable Angle, 40mm, Locking, St - [id number] Start: 01-28-2024 Screw, Variable Angle, 36mm, Locking, St - [id number] Start: 01-28-2024 Screw, Variable Angle, 32mm, Locking, St - [id number] Start: 01-28-2024 Screw, Varable Angle Lkg, Self Tap, 3.5 X 38mm - [id number] Start: 01-28-2024 Cable W/Crimp, 1 .7 X 750mm, Ss, Sterile - [id number] Start: 01-28-2024 Screw, Cortical, Self-Tapping, 4.5 X 38 Mm, Stainless Steel - [id number] Start: 01-28-2024 Screw, Lock 5.[address] T25 - [id number] Start: 01-28-2024 Cable W/Crimp, 1 .7 X 750mm, Ss, Sterile - [id number] Start: 01-28-2024 Pin 4.5 Cerclage Positioning - [id number] Start: 01-28-2024 Comment on above: Description: per neil l only jdr 01/28 Screw, Variable Angle, 50mm, Locking, St - [id number] Start: 01-28-2024 Connecting Screw F/Vavppfx Gt [...] for pain control. Is [facility] at this time, but [...] Dose Status acetaminophen (Tylenol) 325 mg tablet [id number] Take 3 tablets (975 mg) by mouth every 8 hours. Praful Sol PA-C Active bisacodyl (Dulcolax) 10 mg suppository [id number] Insert 1 suppository (10 mg) into the rectum once daily. Praful Sol PA-C Active calcium carbonate (Tums) 200 mg calcium chewable tablet [id number] Chew 1 tablet (500 mg) 4 times a day as needed for indigestion or heartburn. Praful Sol PA-C Active calcium carbonate-vitamin D3 (Oscal-500) 500 mg-10 mcg (400 unit) tablet [id number] Take 1 tablet by mouth 2 times a day. Jonah Taylor MD Active enoxaparin (Lovenox) 30 mg/0.3 mL syringe [id number] Inject 0.3 mL (30 mg) under the skin every 12 hours. Praful Ebenezer, PA-C Active guaiFENesin (Mucinex) 600 mg 12 hr tablet [id number] Take 1 tablet (600 mg) by mouth 2 times a day as needed for cough. Do not crush, chew, or split. Praful Ebenezer, PA-C Active magnesium hydroxide (Milk of Magnesia) 400 mg/5 mL suspension [id number] Take 30 mL by mouth once daily. Praful Ebenezer, PA-C Active ondansetron (Zofran) 4 mg/2 mL injection [id number] Infuse 2 mL (4 mg) into a venous catheter every 4 hours if needed for nausea or vomiting. Praful Ebenezer, PA-C Active polyethylene glycol (Glycolax, Miralax) 17 gram packet [id number] Take 17 g by mouth 2 times a day. Praful Ebenezer, PA-C Active sennosides (Senokot) 8.6 mg tablet [id number] Take 1 tablet (8.6 mg) by mouth [...] Insecurity: No Food Insecurity (10/27/2021) Received from [facility] Hunger Vital Sign Worried About Running Out of Food in the Last Year: Never true Ran Out of Food in the Last Year: Never true Transportation Needs: No Transportation Needs (01/29/2024) PRAPARE - Transportation Lack of Transportation (Medical): No Lack of Transportation (Non-Medical): No Physical Activity: Sufficiently Active (10/27/2021) Received from [facility] Exercise Vital Sign Days of Exercise per Week: 7 days Minutes of Exercise per Session: 30 min Stress: No Stress Concern Present (10/27/2021) Received from [facility] [place] of Occupational Health - Occupational Stress Questionnaire [...] with the plan. documented in this encounter [facility] Work Phone: 02-19-2024 Instructions Michelle Bragg [...] to hopefully advance weightbearing. Michelle Bragg PA-C [phone] documented in this encounter [facility] Work Phone: 02-04-2024 Nurse Note Four eyes completed with Deborah Perry. [facility] 02-04-2024 Nurse Note Four eyes completed with Deborah Perry. documented in this encounter [facility] Work Phone: 02-04-2024 History of Present illness Narrative Auth received for [facility]. CAMPAIGN ASSOCIATE requested 1330 stretcher transport. Pending Roundtrip confirmation. Vernal complete and sent to SNF. 7000 completed. Will follow up on transport. [facility] Care confirmed 230 stretcher transport for discharge to [facility]. Report # [phone]. SW updated TCC, team, SNF, daughter, patient, and the floor. MELANIE Alva Physical Therapy Physical Therapy Treatment Patient Name: Patrice Joel Department: [place] [address] Room: [address] [place] [address] Today's Date: 02/04/2024 Time Calculation Start Time: [...] L LE. pt verbalized completing HEP exercises, LIGHT FIXTURE SERVICER attempted to provide additional exercises however pt [...] shifting and to maintain NWB Outcome Measures: [facility] Basic Mobility Turning from your back [...] Body Mechanics, taught by Fermin De Luna LIGHT FIXTURE SERVICER at 02/04/2024 11:10 AM. Learner: Patient Readiness: [...] OT Treatment Patient Name: Patrice Joel Department: [facility] 6 Room: [facility]60-A Today's Date: 02/03/2024 Time Calculation Start Time: [...] ther ex bed leve Precautions: Hearing/Visual Limitations: TEJON LE Weight Bearing Status: Left Non-Weight Bearing [...] rotation, chest press with scap retraction Outcome Measures:[facility] Daily Activity Putting on and taking [...] (Progressing) Start: 01/29/24 Expected End: 02/19/24 [facility] accepted; direct precert team confirmed precert was initiated over the weekend. CAMPAIGN ASSOCIATE sent updates to SNF. Pending precert. Will continue to follow. MELANIE Alva Physical Therapy Treatment Patient Name: Patrice Joel Today's Date: 02/03/2024 Room: [address] [place] [address] Time Calculation Start Time: 824 Stop Time: [...] therapy upon approach Precautions: Precautions Hearing/Visual Limitations: TEJON LE Weight Bearing Status: Left Non-Weight Bearing [...] Decreased tolerance for upright activites Outcome Measures: [facility] Basic Mobility Turning from your back [...] 01/29/24 Expected End: 02/12/24 Pain - Adult [facility] TRAUMA SERVICE - PROGRESS NOTE Patient Name: Patrice Joel Admit Date: [id number] : 1940 AGE: 83 y.o. GENDER: male MECHANISM OF INJURY: 83M tx from [place] after mGLF LOC (yes/no?): no Anticoagulant / Anti-platelet Rx? (for what dx?): no Referring Facility Name (N/A for scene EMR run): [place] INJURIES: L periprosthetic femur fracture OTHER MEDICAL [...] Trauma, Critical Care, Acute Care Surgery Floor: 02873 TSICU: 33158 CHIEF COMPLAINT / OVERNIGHT EVENTS: No acute [...] dressings clean, no strikethrough Compartments soft, compressible Title Officer strength 5/5 bilaterally Dorsi/plantarflexion 5/5 bilaterally Skin: [...] Name: Patrice Joel Today's Date: 02/02/2024 Room: [address] [place] [address] Time Calculation Start Time: 1102 Stop Time: [...] therapy upon approach Precautions: Precautions Hearing/Visual Limitations: TEJON LE Weight Bearing Status: Left Non-Weight Bearing [...] Decreased tolerance for upright activites Outcome Measures: [facility] Basic Mobility Turning from your back [...] (Rehab/SNF/etc) Type of Post Acute Facility Services senior living Expected Discharge Disposition SNF Does the patient need discharge transport arranged? Yes RoundTrip coordination needed? Yes Patient will be discharging to [facility] [place] [facility] [phone] when medically ready. Patient will require a pre cert. Will require updated therapy PT/OT to initiate pre cert. Updated clinicals submitted. [facility] TRAUMA SERVICE - PROGRESS NOTE Patient Name: Patrice Joel Admit Date: [id number] : 1940 AGE: 83 y.o. GENDER: male MECHANISM OF INJURY: 83M tx from [place] after mGLF LOC (yes/no?): no Anticoagulant / Anti-platelet Rx? (for what dx?): no Referring Facility Name (N/A for scene EMR run): [facility] [place] INJURIES: L periprosthetic femur fracture OTHER MEDICAL [...] Trauma, Critical Care, Acute Care Surgery Floor: 55414 TSICU: 16927 CHIEF COMPLAINT / OVERNIGHT EVENTS: No acute [...] thigh surgical dressings clean Compartments soft, compressible Title Officer strength 5/5 bilaterally Dorsi/plantarflexion 5/5 bilaterally Skin: [...] results, and imaging pertinent for today's encounter. [facility] TRAUMA SERVICE - PROGRESS NOTE Patient Name: Patrice Joel Admit Date: [id number] : 1940 AGE: 83 y.o. GENDER: male MECHANISM OF INJURY: 83M tx from [place] after mGLF LOC (yes/no?): no Anticoagulant / Anti-platelet Rx? (for what dx?): no Referring Facility Name (N/A for scene EMR run): [place] INJURIES: L periprosthetic femur fracture OTHER MEDICAL [...] Trauma, Critical Care, Acute Care Surgery Floor: 15652 TSICU: 56111 CHIEF COMPLAINT / OVERNIGHT EVENTS: No acute [...] thigh surgical dressings clean Compartments soft, compressible Title Officer strength 5/5 bilaterally Dorsi/plantarflexion LLE 5/5, 3/5 [...] Therapy Treatment Patient Name: Patrice Joel Department: [place] [address] Room: [address] [place] [address] Today's Date: 02/01/2024 Time Calculation Start Time: [...] with PT. Subjective Precautions: Precautions Hearing/Visual Limitations: TEJON LE Weight Bearing Status: Left Non-Weight Bearing [...] to supine.) Stairs Stairs: No Outcome Measures: [facility] Basic Mobility Turning from your back [...] 12:13 PM Rosa Mcdermott PTA Rehab Office: [phone] 02/01/24 1013 Discharge Planning Who is requesting discharge planning? Provider Home or Post Acute Services Post acute facilities (Rehab/SNF/etc) Type of Post Acute Facility Services senior living Expected Discharge Disposition SNF ([facility] [place] [facility] Spoke with daughter Haily [phone] to make her aware at this time [facility] [place] is the only accepting SNF [facility]. Haily stated this is actually her FOC because it's the closest to her home so this is fine. Secure chat sent to direct submit team requesting for them to submit for precert. [facility] [place] updated of above. Care Transitions team will continue to follow for discharge planning needs. Shoshana Albrecht RN Transitional Language Arts Teacher (TCC) [phone] or [phone] Physical Therapy Physical Therapy Treatment Patient Name: Patrice Joel Department: [place] [address] Room: [address] [place] [address] Today's Date: 01/31/2024 Time Calculation Start Time: [...] (<25% ROM), QS, GS x10 Outcome Measures: [facility] Basic Mobility Turning from your back [...] 01/29/24 Expected End: 02/12/24 Pain - Adult [facility] TRAUMA SERVICE - PROGRESS NOTE Patient Name: Patrice Joel Admit Date: [id number] : 1940 AGE: 83 y.o. GENDER: male MECHANISM OF INJURY: 83M tx from [place] after mGLF LOC (yes/no?): no Anticoagulant / Anti-platelet Rx? (for what dx?): no Referring Facility Name (N/A for scene EMR run): [place] INJURIES: L periprosthetic femur fracture OTHER MEDICAL [...] Patient was dicussed with Dr. Jeffrey Arce, HOTEL SERVICES SALES REPRESENTATIVE-NEGATIVE SPOTTER Trauma, Critical Care, and Acute Care Surgery Ext 25900 (floor), 28115 (ICU) CHIEF COMPLAINT / OVERNIGHT EVENTS: Patient [...] Results Component Value Date TSH 0.66 01/30/2024 [id number] 468 01/30/2024 VITD25 33 01/30/2024 Results from [...] interpretation and clinical correlation Confirmed by Daphne iHll ([id number]) on 01/28/2024 1:10:[address] abdomen pelvis w IV contrast Narrative: Interpreted By: Nevaeh Lind and Beyersdorf Conner STUDY: CT ABDOMEN PELVIS W IV CONTRAST; 01/27/2024 11:40 pm INDICATION: Signs/Symptoms:fall. COMPARISON: CT pelvis 01/27/2024 ACCESSION NUMBER(S): [id number] ORDERING CLINICIAN: HARINI MENDEZ TECHNIQUE: CT of [...] Grossman. Data analyzed and images interpreted at [place], [place]. MACRO: Critical Finding: See findings. Notification was initiated on 01/28/2024 at 12:59 am by Nevaeh Lind. (-YCF-) Instructions: Signed by: Nevaeh Lind 01/28/2024 12:59 AM Dictation workstation: [id number] XR chest 1 view Narrative: Interpreted By: Nevaeh Lind and Ohs Zachary STUDY: XR CHEST 1 VIEW; 01/27/2024 8:52 pm INDICATION: Signs/Symptoms:preop clearance. COMPARISON: None. ACCESSION NUMBER(S): [id number] ORDERING CLINICIAN: JADEN GONZALEZ FINDINGS: AP radiograph [...] Song Lozoya. This study was interpreted at [place], [place]. MACRO: None Signed by: Nevaeh Lind 01/28/2024 12:36 AM Dictation workstation: [id number] XR hip left with pelvis when performed 2 or 3 views, XR knee left 1-2 views Narrative: Interpreted By: Nevaeh Lind and Ohs Zachary STUDY: XR HIP LEFT WITH PELVIS WHEN PERFORMED 2 OR 3 VIEWS; XR KNEE LEFT 1-2 VIEWS 01/27/2024 8:52 pm INDICATION: Signs/Symptoms:femur fracture COMPARISON: Pelvic radiograph 01/27/2024. ACCESSION NUMBER(S): [id number]; [id number] ORDERING CLINICIAN: JADEN GONZALEZ TECHNIQUE: AP view [...] Song Lozoya. This study was interpreted at [place], [place]. MACRO: None Signed by: Nevaeh Lind 01/28/2024 12:34 AM Dictation workstation: [id number] DATA: EKG: QTC Encounter Date: 01/27/24 ECG 12 Lead Result Value Ventricular Rate 67 Atrial Rate 67 LA Interval 192 QRS Duration 90 QT Interval 392 QTC Calculation(Bazett) 414 P [place] 30 R [place] 39 T [place] 34 QRS Count 10 Q Onset 220 P Onset 124 P Offset 185 T Offset 416 QTC Fredericia 407 Narrative Normal sinus rhythm Normal ECG No previous ECGs available See ED provider note for full interpretation and clinical correlation Confirmed by Daphne Hill ([id number]) on 01/28/2024 1:10:44 AM Anti-psychotics in 48 [...] PLAN: - please engage music therapy and communication center operator services Please consider the following general measures [...] but has seen Dr. Hadley Fallon at [facility] previously Goals of Care: -Health care power of consumer attorney: none, wants his daughter to make decisions on his behalf if needed, daughter would like assistance in healthcare power of consumer attorney paperwork -Living will: none Code status: [...] over the weekend, please page Geriatrics pager [phone] Lin Wing MD Internal Medicine PGY1 Geriatric [...] daughter requesting a list of SNFs in [facility]. CAMPAIGN ASSOCIATE sent new SNF list to daughter. [facility] did not accept. Care Transitions will continue to follow. 1538-Daughter provided 4 SNF choices. Referrals sent for review. MELANIE Alva Per TCC, patient is TEJON. CAMPAIGN ASSOCIATE updated daughter Haily on moderate intensity PT recommendation. Daughter confirmed they are agreeable to SNF. When prompted, daughter states she is familiar with [facility] Referrals submitted for review. CAMPAIGN ASSOCIATE sent SNF list to daughter. Care Transitions will continue to follow. MELANIE Alva Physical Therapy Physical Therapy Treatment Patient Name: Patrice Joel Department: [place] [address] Room: [address] [place] [address] Today's Date: 01/30/2024 Time Calculation Start Time: 1015 (split session [id number]) Stop Time: 1129 (split session [id number]) Time Calculation (min): 43 min Assessment/Plan PT [...] has been feeling good. (Split PT session: [id number], 0465-2070) Subjective Precautions: Precautions Hearing/Visual Limitations: Pt TEJON LE Weight Bearing Status: Left Non-Weight Bearing [...] be non-compliant with non-WB order. Outcome Measures: [facility] Basic Mobility Turning from your back [...] 01/29/24 Expected End: 02/12/24 Pain - Adult [facility] TRAUMA SERVICE - PROGRESS NOTE Patient Name: Patrice Joel Admit Date: [id number] : 1940 AGE: 83 y.o. GENDER: male 83 male presenting to [place] 2 days following a mGLF. baseline holistic, does not see doctor LOC (yes/no?): no Anticoagulant / Anti-platelet Rx? (for what dx?): no Referring Facility Name (N/A for scene EMR run): [place] INJURIES/problems: Non-displaced L periprosthetic femur fracture Post [...] Trauma, Critical Care, and Acute Care Surgery 62096 Total face to face time spent with [...] course Jonah Taylor MD PGY-1 Orthopedic Surgery [facility] Epic Chat Preferred We will follow peripherally [...] surgery for post-operative appointment (patient may call [phone] to schedule). Please page with questions. Physical Therapy Physical Therapy Evaluation Patient Name: Patrice Joel Department: [facility] 6 Room: 60/6023-A Today's Date: 01/29/2024 Time [...] Home Living Comments: Pt lives with dog daycare provider. 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) Prior Function Comments: Pt reports that he [...] Strength: Deficits, Due to pain Outcome Measures: [facility] Basic Mobility Turning from your back [...] Therapy Evaluation/Treatment Patient Name: Patrice Joel Department: [place] [address] Room: [id number] Today's Date: 01/29/24 Time Calculation [...] Bathroom Equipment: None Prior Function: Level of [place]: Independent with ADLs and functional transfers ADL Assistance: Independent Homemaking Assistance: Independent Ambulatory Assistance: Independent 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 (Progressing) Start: 01/29/24 Expected End: 02/19/24 [facility] TRAUMA SERVICE - PROGRESS NOTE Patient Name: Patrice Joel Admit Date: 9150616 : 1940 AGE: 83 y.o. GENDER: male 83 male presenting to [place] 2 days following a mGLF. baseline holistic, does not see doctor LOC (yes/no?): no Anticoagulant / Anti-platelet Rx? (for what dx?): no Referring Facility Name (N/A for scene EMR run): [place] INJURIES/problems: Non-displaced L periprosthetic femur fracture Post [...] Discussed with Dr. Jeffrey Dunlap PA-C Trauma 42626 CHIEF COMPLAINT / OVERNIGHT EVENTS: No adverse [...] were you homeless or living in a group home (including now)? N Transportation Needs In the [...] Communication Note Patient Name: Patrice Joel Department: [place] [address] Room: 60/6023-A Today's Date: 01/29/2024 Discipline: Occupational [...] course Jonah Taylor MD PGY-1 Orthopedic Surgery [facility] Epic Melanie Preferred This patient will be followed by the Orthopaedic Trauma service. Please page or Epic Chat the corresponding residents below with questions or concerns. Ortho Trauma Service (Epic Chat Preferred) First call: Jonah Taylor PGY-1 Second call: Roberto Apodaca PGY-2 Third call: Nathanael Bethea PGY-3 6pm-6am M-F, Holidays, and weekends page Ortho on-call @[phone] with urgent questions/concerns. [facility] TRAUMA SERVICE - PROGRESS NOTE Patient Name: Patrice Joel Admit Date: [id number] : 1940 AGE: 83 y.o. GENDER: male 83 male presenting to [place] 2 days following a mGLF. Found to have a L periprosthetic femur fracture. Transferred to [facility] for further orthopedic workup. Of note patient is holistic and does not see doctors. LOC (yes/no?): no Anticoagulant / Anti-platelet Rx? (for what dx?): no Referring Facility Name (N/A for scene EMR run): [place] INJURIES: Non-displaced L periprosthetic femur fracture OTHER [...] course Jonah Taylor MD PGY-1 Orthopedic Surgery [facility] Epic Chat Preferred This patient will be followed by the Orthopaedic Trauma service. Please page or Epic Chat the corresponding residents below with questions or concerns. Ortho Trauma Service (Epic Chat Preferred) First call: Jonah Taylor, PGY-1 Second call: Roberto Apodaca, PGY-2 Third call: Nathanael Bethea, PGY-3 6pm-6am M-F, Holidays, and weekends page Ortho on-call @[phone] with urgent questions/concerns. documented in this encounter [facility] Work Phone: 02-04-2024 Plan of care [...] Progressing Goal: Promote skin healing Outcome: Progressing [facility] 02-04-2024 Miscellaneous Notes The patient's goals [...] Trauma, Critical Care, Acute Care Surgery Floor: 88620 TSICU: 46890 Open Reduction Internal Fixation Femur (L) Operative Note Date: 01/28/2024 OR Location: [facility] OR Name: Patrice Joel, : 1940, Age: 83 y.o., , Sex: male Diagnosis Pre-op Diagnosis * Periprosthetic fracture of proximal end of femur [M97.8XXA, Z96.649] Post-op Diagnosis * Periprosthetic fracture of proximal end of femur [M97.8XXA, Z96.649] Procedures Open Reduction Internal Fixation Femur 66658 - LA OPTX FEM SHFT FX W/PLATE/SCREWS W/WO CERCLAGE Surgeons * Frederic Buenrostro - Primary Resident/Fellow/Other Food Service Team Member: Surgeons and Role: * Toya Mayfield PA-C - Resident - Assisting * Jonah Taylor MD - Resident - Assisting * Samuel Gates DO - Resident - Assisting Procedure Summary Anesthesia: General ASA: III Anesthesia Staff: Anesthesiologist: Abilio Hernández DO C-AA: YANCI Ruth; YACNI Calhoun Estimated Blood Loss: 500mL Intra-op Medications: [...] Staff: Scrub Person: Jennifer Scrub Person: Braulio Retail Advertising Sales Manager: Megan Retail Advertising Sales Manager: Fernanda Relief Retail Advertising Sales Manager: Jed Drains and/or Catheters: Closed/Suction Drain 1 Left Thigh 10 Fr. (Active) Urethral Catheter Double-lumen;Non-latex 16 Fr. (Active) Tourniquet Times: Implants: Implants Type Name Action Serial No. CONNECTING SCREW F/VAVPPFX GT RING ATTCHMT PLATE Implanted 8 HOLE PPFX PLATE Implanted Screw CABLE W/CRIMP, 1.7 X 750MM, SS, STERILE - [id number] Implanted GT ATTACH PLATE Implanted Screw SCREW, CORTICAL, SELF-TAPPING, 4.5 X 38 MM, STAINLESS STEEL - [id number] Implanted Screw SCREW, LOCK 5.[address] T25 - [id number] Implanted Screw CABLE W/CRIMP, 1.7 X 750MM, SS, STERILE - [id number] Implanted Screw PIN 4.5 CERCLAGE POSITIONING - [id number] Implanted Screw SCREW, VARIABLE ANGLE, 50MM, LOCKING, ST - [id number] Implanted Screw SCREW, VARIABLE ANGLE, 46MM, LOCKING, ST - [id number] Implanted Screw SCREW, VARIABLE ANGLE, 44MM, LOCKING, ST - [id number] Implanted Screw SCREW, VARIABLE ANGLE, 40MM, LOCKING, ST - [id number] Implanted Screw SCREW, VARIABLE ANGLE, 36MM, LOCKING, ST - [id number] Implanted Screw SCREW, VARIABLE ANGLE, 32MM, LOCKING, ST - [id number] Implanted Screw SCREW, VARABLE ANGLE LKG, SELF TAP, 3.5 X 38MM - [id number] Implanted Findings: Left periprosthetic femur fracture with [...] were placed in the wound. A 10 Andorran round drain was then placed below the vastus musculature and out proximal and anterior to our incision. The fascia of the vastus was then closed with #1 Vicryl in running fashion. The insertion of the vastus was repaired with #1 Vicryl in [id number] fashion. The IT band was closed in [...] procedure. Frederic Buenrostro Date: 01/28/2024 OR Location: [facility] OR Name: Patrice Joel, : 1940, Age: 83 y.o., , Sex: male Diagnosis Pre-op Diagnosis * Periprosthetic fracture of proximal end of femur [M97.8XXA, Z96.649] Post-op Diagnosis * Periprosthetic fracture of proximal end of femur [M97.8XXA, Z96.649] Procedures Open Reduction Internal Fixation Femur 13354 - LA OPTX FEM SHFT FX W/PLATE/SCREWS W/WO CERCLAGE Surgeons * Frederic Buenrostro - Primary Resident/Fellow/Other Food Service Team Member: Surgeons and Role: * Toya Mayfield PA-C [...] Staff: Scrub Person: Jennifer Scrub Person: Braulio Retail Advertising Sales Manager: Megan Retail Advertising Sales Manager: Fernanda Hilliard Retail Advertising Sales Manager: Jed Findings: L periprosthetic femur fracture, s/p [...] and bilateral hip replacements (2009) presenting to [place] 2 days following a mGLF. Negative LOC, headstrike, or blood thinners. Found to have a L periprosthetic femur fracture. Transferred to [facility] for further orthopedic workup. Of note patient is holistic and does not see doctors. Patient went to OR with orthopedics on 01/27 for ORIF L femur. Will remain NWB LLE until outpatient follow up on 02/13. Due to anaphylactic allergy listed to morphine/codeine, pain control primarily controlled with non opioids, patient tolerated well. PT/OT recommended moderate intensity. Will be discharged to [facility]. documented in this encounter [facility] Work Phone: 02-03-2024 Plan of care note The patient's goals for the shift include The clinical goals for the shift include Pt will remain safe and pain controlled during night. Pt remained safe and free of injury during night. Pain controlled with tylenol. No other distress noted. Call light in reach. Resting quietly at this time. Phyllis Soto RN' [facility] Work Phone: 02-02-2024 Plan of care note [...] Progressing Goal: Promote skin healing Outcome: Progressing [facility] 02-02-2024 Plan of care note Problem: Pain [...] pain control throughout the shift Outcome: Progressing [facility] 02-02-2024 Plan of care note The clinical [...] Progressing Goal: Promote skin healing Outcome: Progressing [facility] 02-01-2024 Plan of care note Problem: Pain [...] shift include patient remains safe throughout shift [facility] Work Phone: 01-31-2024 Plan of care note [...] Progressing Goal: Promote skin healing Outcome: Progressing [facility] Work Phone: 01-30-2024 Consult note Associated Order (s): Inpatient consult to Geriatric Medicine Inpatient consult to Geriatric Medicine Consult performed by: Lin Wing MD Consult ordered by: Praful Sol PA-C Primary Team: Trauma Admit Date: 01/27/2024 Emergency Contact: Extended Emergency Contact Information Primary Emergency Contact: Haily Joel Mobile Relation: Daughter Preferred language: Marshallese Inside Sales Engineer needed? No Reason For Consult: medical evaluation in the setting of ground level fall History Of Present Illness: Patrice Joel is a 83 y.o. male with history of HTN and bilateral hip replacements in 2009 presenting as a transfer from [facility] after a ground level fall. Per documentation, on 01/23, he tripped on a wooden pallet and landed on L hip/elbow. He presented to [facility] on 01/26 due to worsening pain and difficulty with ambulation. He denied loss of consciousness and head strike after fall and denied anticoagulation use. He was able to walk around following the fall but was having worsening pain and increasing difficulty with ambulation. At [facility], XR pelvis and femur as well as [...] lot, so he ended up moving to [place], [place] (about 1.5 hrs away from her). [...] has gotten more spiritual (he was not episcopal prior to this). She reported that patient [...] information includes outpatient family medicine visits at [facility]. 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 Highest Level of Education: Post-Graduate Degree, [...] Transportation: I, Medications: I, Handle Finances: I [place] Scale: 8 Allergies Codeine and Morphine Review [...] Directive/Living Will: No Health Care Power of Director Of Business Services: No, patient would want his daughter to [...] Relevant Results No results found for: TSH, EWTRNQAT49, VITD25, HGBA1C Results from last 7 days [...] and clinical correlation Confirmed by Daphne Hill ([id number]) on 01/28/2024 1:10:[address] abdomen pelvis w IV contrast Narrative: Interpreted By: Nevaeh Lind and Beyersdorf Conner STUDY: CT ABDOMEN PELVIS W IV CONTRAST; 01/27/2024 11:40 pm INDICATION: Signs/Symptoms:fall. COMPARISON: CT pelvis 01/27/2024 ACCESSION NUMBER(S): [id number] ORDERING CLINICIAN: HARINI MENDEZ TECHNIQUE: CT of [...] Grossman. Data analyzed and images interpreted at [facility], [place], [place]. MACRO: Critical Finding: See findings. Notification was initiated on 01/28/2024 at 12:59 am by Nevaeh Lind. (-YCF-) Instructions: Signed by: Nevaeh Lind 01/28/2024 12:59 AM Dictation workstation: [id number] XR chest 1 view Narrative: Interpreted By: Nevaeh Lind and Ohs Zachary STUDY: XR CHEST 1 VIEW; 01/27/2024 8:52 pm INDICATION: Signs/Symptoms:preop clearance. COMPARISON: None. ACCESSION NUMBER(S): [id number] ORDERING CLINICIAN: JADEN GONZALEZ FINDINGS: AP radiograph [...] Song Lozoya. This study was interpreted at [place], [place]. MACRO: None Signed by: Nevaeh Lind 01/28/2024 12:36 AM Dictation workstation: [id number] XR hip left with pelvis when performed 2 or 3 views, XR knee left 1-2 views Narrative: Interpreted By: Nevaeh Lind and Ohs Zachary STUDY: XR HIP LEFT WITH PELVIS WHEN PERFORMED 2 OR 3 VIEWS; XR KNEE LEFT 1-2 VIEWS 01/27/2024 8:52 pm INDICATION: Signs/Symptoms:femur fracture COMPARISON: Pelvic radiograph 01/27/2024. ACCESSION NUMBER(S): [id number]; [id number] ORDERING CLINICIAN: JADEN GONZALEZ TECHNIQUE: AP view [...] Song Lozoya. This study was interpreted at [facility], [place], [place]. MACRO: None Signed by: Nevaeh Lind 01/28/2024 12:34 AM Dictation workstation: [id number] Head/Brain Imaging No results found for this or any previous visit. No results found for this or any previous visit. DATA: EKG: QTC Encounter Date: 01/27/24 ECG 12 Lead Result Value Ventricular Rate 67 Atrial Rate 67 LA Interval 192 QRS Duration 90 QT Interval 392 QTC Calculation(Bazett) 414 P [place] 30 R [place] 39 T [place] 34 QRS Count 10 Q Onset 220 P Onset 124 P Offset 185 T Offset 416 QTC Fredericia 407 Narrative Normal sinus rhythm Normal ECG No previous ECGs available See ED provider note for full interpretation and clinical correlation Confirmed by Daphne Hill ([id number]) on 01/28/2024 1:10:44 AM Anti-psychotics in 48 [...] status - please engage music therapy and communication center operator services Please consider the following general measures [...] but has seen Dr. Hadley Fallon at [facility] Goals of Care: -Health care power of consumer attorney: none, wants his daughter to make decisions on his behalf if needed, daughter would like assistance in healthcare power of consumer attorney paperwork -Living will: none Code status: [...] over the weekend, please page Geriatrics pager [phone] Consult Billing Time Prep time on date [...] comment in italics Daniela Loco MD T [facility] Work Phone: 01-30-2024 Consult note Associated Order (s): Inpatient consult to Geriatric Medicine Inpatient consult to Geriatric Medicine Consult performed by: Lin Wing MD Consult ordered by: Praful Sol PA-C Primary Team: Trauma Admit Date: 01/27/2024 Emergency Contact: Extended Emergency Contact Information Primary Emergency Contact: Haily Joel Mobile Relation: Daughter Preferred language: Marshallese Inside Sales Engineer needed? No Reason For Consult: medical evaluation in the setting of ground level fall History Of Present Illness: Patrice Joel is a 83 y.o. male with history of HTN and bilateral hip replacements in 2009 presenting as a transfer from [facility] after a ground level fall. Per documentation, on 01/23, he tripped on a wooden pallet and landed on L hip/elbow. He presented to [facility] on 01/26 due to worsening pain and difficulty with ambulation. He denied loss of consciousness and head strike after fall and denied anticoagulation use. He was able to walk around following the fall but was having worsening pain and increasing difficulty with ambulation. At [facility], XR pelvis and femur as well as [...] lot, so he ended up moving to [place], [place] (about 1.5 hrs away from her). [...] has gotten more spiritual (he was not episcopal prior to this). She reported that patient [...] information includes outpatient family medicine visits at [facility]. 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 COMPARISON: CT pelvis 01/27/2024 ACCESSION NUMBER(S): [id number] ORDERING CLINICIAN: HARINI MENDEZ TECHNIQUE: CT of [...] Grossman. Data analyzed and images interpreted at [place], [place]. MACRO: Critical Finding: See findings. Notification was initiated on 01/28/2024 at 12:59 am by Nevaeh Lind. (-YCF-) Instructions: Signed by: Nevaeh Lind 01/28/2024 12:59 AM Dictation workstation: [id number] XR chest 1 view Narrative: Interpreted By: Nevaeh Lind and Ohs Zachary STUDY: XR CHEST 1 VIEW; 01/27/2024 8:52 pm INDICATION: Signs/Symptoms:preop clearance. COMPARISON: None. ACCESSION NUMBER(S): [id number] ORDERING CLINICIAN: JADEN GONZALEZ FINDINGS: AP radiograph [...] Song Lozoya. This study was interpreted at [facility], [place], [place]. MACRO: None Signed by: Nevaeh Lind 01/28/2024 12:36 AM Dictation workstation: [id number] XR hip left with pelvis when performed 2 or 3 views, XR knee left 1-2 views Narrative: Interpreted By: Nevaeh Lind and Ohs Zachary STUDY: XR HIP LEFT WITH PELVIS WHEN PERFORMED 2 OR 3 VIEWS; XR KNEE LEFT 1-2 VIEWS 01/27/2024 8:52 pm INDICATION: Signs/Symptoms:femur fracture COMPARISON: Pelvic radiograph 01/27/2024. ACCESSION NUMBER(S): [id number]; [id number] ORDERING CLINICIAN: JADEN GONZALEZ TECHNIQUE: AP view [...] Song Lozoya. This study was interpreted at [place], [place]. MACRO: None Signed by: Nevaeh Lind 01/28/2024 12:34 AM Dictation workstation: [id number] Head/Brain Imaging No results found for this or any previous visit. No results found for this or any previous visit. DATA: EKG: QTC Encounter Date: 01/27/24 ECG 12 Lead Result Value Ventricular Rate 67 Atrial Rate 67 LA Interval 192 QRS Duration 90 QT Interval 392 QTC Calculation(Bazett) 414 P [place] 30 R [place] 39 T [place] 34 QRS Count 10 Q Onset 220 P Onset 124 P Offset 185 T Offset 416 QTC Fredericia 407 Narrative Normal sinus rhythm Normal ECG No previous ECGs available See ED provider note for full interpretation and clinical correlation Confirmed by Daphne Hill ([id number]) on 01/28/2024 1:10:44 AM Anti-psychotics in 48 [...] status - please engage music therapy and communication center operator services Please consider the following general measures [...] but has seen Dr. Hadley Fallon at [facility] Goals of Care: -Health care power of consumer attorney: none, wants his daughter to make decisions on his behalf if needed, daughter would like assistance in healthcare power of consumer attorney paperwork -Living will: none Code status: [...] over the weekend, please page Geriatrics pager [phone] Consult Billing Time Prep time on date [...] few comment in italics Daniela Loco MD [facility] Department of Orthopaedic Surgery Initial Consult Note HPI: 83M (h/o bilateral CIRILO in 2009) transfer from [facility] about 4 days ago. [place] when he lost his balance and fell. He initially did not seek treatment he thought it would improve but noted difficulty with ambulation and increasing pain. He underwent bilateral hip replacements with Dr. Kanu Carter in [place] in 2009. He has not had any issues postoperatively. Orthopaedic Problems/Injuries: L Knifley B2 fx Other Injuries: None PMH: per [...] and noted above. Imaging: XR/CT w L Knifley B2 fx and slight subsidence of femoral implant when compared to prior XRs. Assessment: Orthopaedic Problems/Injuries: L Knifley B2 fx 83M (h/o bilateral CIRILO in 2009) transfer from [place] p/a mGLF. Closed, NVI. XR/CT w slight [...] questions. Francia Girard MD Orthopaedic Surgery PGY-2 [employer] Chat preferred Please page [phone] (on-call pager) on weekends and between 6p-7a on weekdays. While admitted, this patient will be followed by the Ortho Trauma Team. Please contact the residents listed below with any questions (available via [employer]). First call: Jonah Taylor, PGY-1 Second call: Roberto Apodaca PGY-2 Third call: Bette Bethea, PGY-3 Please call the Machine Talker pager [phone]) on weekends and between 6p-7a on week. documented in this encounter [facility] Work Phone: 01-29-2024 Plan of care [...] chair to eat a meal during shift [facility] 01-28-2024 Note Formatting of this n ote [...] Trauma, Critical Care, Acute Care Surgery Floor: [id number] TSICU: [id number] [facility] Work Phone: 01-28-2024 Hospital Discharge instructions Jonah Taylor MD - 01/28/2024 11:16 AM EDT Follow-Up Instructions You will need to be seen in clinic by Dr. Buenrostro in 2-3 weeks for a post-operative evaluation. This appointment will be in the outpatient surgical specialty services effie, on the [facility]. You will need to call and schedule an appointment, unless there is a previous appointment that appears on your discharge instructions. The direct orthopaedic clinic appointment line phone number is [phone]. Please do not delay in calling to [...] months after surgery. documented in this encounter [facility] Work Phone: 01-28-2024 Consult note Formatting of th is note might be different from the original. [facility] Department of Orthopaedic Surgery Initial Consult Note HPI: 83M (h/o bilateral CIRILO in 2009) transfer from [place] p/a [facility] about 4 days ago. [place] when he lost his balance and fell. He initially did not seek treatment he thought it would improve but noted difficulty with ambulation and increasing pain. He underwent bilateral hip replacements with Dr. Kanu Carter in [place] in 2009. He has not had any issues postoperatively. Orthopaedic Problems/Injuries: L Knifley B2 fx Other Injuries: None PMH: per [...] and noted above. Imaging: XR/CT w L Knifley B2 fx and slight subsidence of femoral implant when compared to prior XRs. Assessment: Orthopaedic Problems/Injuries: L Knifley B2 fx 83M (h/o bilateral CIRILO in 2009) [facility] [place] [facility] Closed, NVI. XR/CT w slight subsidence of [...] questions. Francia Girard MD Orthopaedic Surgery PGY-2 [employer] Chat preferred Please page [phone] (on-call pager) on weekends and between 6p-7a on weekdays. While admitted, this patient will be followed by the Ortho Trauma Team. Please contact the residents listed below with any questions (available via [employer] Chat). First call: Jonah Taylor, PGY-1 Second call: Roberto Apodaca, PGY-2 Third call: Bette Bethea, PGY-3 Please call the ortho pager ([phone]) on weekends and between 6p-7a on weekdays. [facility] Work Phone: 01-28-2024 Note Formatting of this n ote is different from the original. Open Reduction Internal Fixation Femur (L) Operative Note Date: 01/28/2024 OR Location: [facility] OR Name: Patrice Joel, : 1940, Age: 83 y.o., , Sex: male Diagnosis Pre-op Diagnosis * Periprosthetic fracture of proximal end of femur [M97.8XXA, Z96.649] Post-op Diagnosis * Periprosthetic fracture of proximal end of femur [M97.8XXA, Z96.649] Procedures Open Reduction Internal Fixation Femur 63852 - LA OPTX FEM SHFT FX W/PLATE/SCREWS W/WO CERCLAGE Surgeons * Frederic Buenrostro - Primary Resident/Fellow/Other Food Service Team Member: Surgeons and Role: * Toya Mayfield PA-C [...] Staff: Scrub Person: Jennifer Scrub Person: Braulio Retail Advertising Sales Manager: Megan Retail Advertising Sales Manager: Fernanda Hilliard Retail Advertising Sales Manager: Jed Drains and/or Catheters: Closed/Suction Drain 1 Left Thigh 10 Fr. (Active) Urethral Catheter Double-lumen;Non-latex 16 Fr. (Active) Tourniquet Times: Implants: Implants Type Name Action Serial No. CONNECTING SCREW F/VAVPPFX GT RING ATTCHMT PLATE Implanted 8 HOLE PPFX PLATE Implanted Screw CABLE W/CRIMP, 1.7 X 750MM, SS, STERILE - [id number] Implanted GT ATTACH PLATE Implanted Screw SCREW, CORTICAL, SELF-TAPPING, 4.5 X 38 MM, STAINLESS STEEL - [id number] Implanted Screw SCREW, LOCK 5.[address] T25 - [id number] Implanted Screw CABLE W/CRIMP, 1.7 X 750MM, SS, STERILE - [id number] Implanted Screw PIN 4.5 CERCLAGE POSITIONING - [id number] Implanted Screw SCREW, VARIABLE ANGLE, 50MM, LOCKING, ST - [id number] Implanted Screw SCREW, VARIABLE ANGLE, 46MM, LOCKING, ST - [id number] Implanted Screw SCREW, VARIABLE ANGLE, 44MM, LOCKING, ST - [id number] Implanted Screw SCREW, VARIABLE ANGLE, 40MM, LOCKING, ST - [id number] Implanted Screw SCREW, VARIABLE ANGLE, 36MM, LOCKING, ST - [id number] Implanted Screw SCREW, VARIABLE ANGLE, 32MM, LOCKING, ST - [id number] Implanted Screw SCREW, VARABLE ANGLE LKG, SELF TAP, 3.5 X 38MM - [id number] Implanted Findings: Left periprosthetic femur fracture with [...] were placed in the wound. A 10 Andorran round drain was then placed below the vastus musculature and out proximal and anterior to our incision. The fascia of the vastus was then closed with #1 Vicryl in running fashion. The insertion of the vastus was repaired with #1 Vicryl in pflyny-uf-zpayr fashion. The IT band was closed in [...] scrubbed for the entire procedure. Frederic Buenrostro [facility] Work Phone: 01-28-2024 Note Formatting of this n ote is different from the original. Date: 01/28/2024 OR Location: [facility] OR Name: Patrice Joel, : 1940, Age: 83 y.o., , Sex: male Diagnosis Pre-op Diagnosis * Periprosthetic fracture of proximal end of femur [M97.8XXA, Z96.649] Post-op Diagnosis * Periprosthetic fracture of proximal end of femur [M97.8XXA, Z96.649] Procedures Open Reduction Internal Fixation Femur 70284 - LA OPTX FEM SHFT FX W/PLATE/SCREWS W/WO CERCLAGE Surgeons * Frederic Buenrostro - Primary Resident/Fellow/Other Food Service Team Member: Surgeons and Role: * Toya Mayfield PA-C [...] Staff: Scrub Person: Jennifer Scrub Person: Braulio Retail Advertising Sales Manager: Megan Retail Advertising Sales Manager: Fernanda Hilliard Retail Advertising Sales Manager: Jed Findings: L periprosthetic femur fracture, s/p ORIF Complications: None; patient tolerated the procedure well. Disposition: PACU - hemodynamically stable. Condition: stable Specimens Collected: No specimens collected Attending Attestation: I was present and scrubbed for the love portions of the procedure. Frederic Buenrostro [facility] Work Phone: 01-28-2024 History and physical note [facility] Department of Orthopaedic Surgery Surgical History & [...] at 4:18 AM - Francia Girard MD [facility] Work Phone: 01-28-2024 History and physical note [facility] Department of Orthopaedic Surgery Surgical History & [...] at 4:18 AM - Francia Girard MD [facility] TRAUMA SERVICE - HISTORY AND PHYSICAL / CONSULT Patient Name: Patrice Joel Admit Date: [id number] : 1940 AGE: 83 y.o. GENDER: male MECHANISM OF INJURY / CHIEF COMPLAINT: 83 male presenting to [place] 2 days following a mGLF. Found to have a L periprosthetic femur fracture. Transferred to [facility] for further orthopedic workup. Of note patient is holistic and does not see doctors. LOC (yes/no?): no Anticoagulant / Anti-platelet Rx? (for what dx?): no Referring Facility Name (N/A for scene EMR run): [place] INJURIES: Non-displaced L periprosthetic femur fracture OTHER [...] for this encounter. documented in this encounter [facility] Work Phone: 01-28-2024 Plan of care [...] Call light in reach. Phyllis Soto, RN [facility] Work Phone: 01-28-2024 Hospital Note Formatting of t his note might be different from the original. 83 y/o male with PMH htn and bilateral hip replacements (2009) presenting to [place] 2 days following a mGLF. Negative LOC, headstrike, or blood thinners. Found to have a L periprosthetic femur fracture. Transferred to [facility] for further orthopedic workup. Of note patient is holistic and does not see doctors. Patient went to OR with orthopedics on 01/27 for ORIF L femur. Will remain NWB LLE until outpatient follow up on 02/13. Due to anaphylactic allergy listed to morphine/codeine, pain control primarily controlled with non opioids, patient tolerated well. PT/OT recommended moderate intensity. Will be discharged to [facility]. [facility] Work Phone: 01-27-2024 History and physical note [facility] TRAUMA SERVICE - HISTORY AND PHYSICAL / CONSULT Patient Name: Patrice Joel Admit Date: [id number] : 1940 AGE: 83 y.o. GENDER: male MECHANISM OF INJURY / CHIEF COMPLAINT: 83 male presenting to [place] 2 days following a mGLF. Found to have a L periprosthetic femur fracture. Transferred to [facility] for further orthopedic workup. Of note patient is holistic and does not see doctors. LOC (yes/no?): no Anticoagulant / Anti-platelet Rx? (for what dx?): no Referring Facility Name (N/A for scene EMR run): [place] INJURIES: Non-displaced L periprosthetic femur fracture OTHER [...] and imaging results ordered/pertinent for this encounter. [facility] Work Phone: 01-27-2024 Emergency department Note Limitations to History: None HPI: Patrice Joel is a 83 y.o. who presents to the ED with L periprosethic femur fracture from [place]. He was standing on wooden pallet and [...] Patient comes in as a transfer from [facility] here for an orthopedic consult; he fell on Saturday after tripping over a tree stump and landing on his L hip and elbow; denies LOC, denies hitting his head, denies anticoagulation use; waited until today to go to [place], where they found him to have a L hip fx; patient was given 50mcg of Fentanyl prior to leaving [place], and denies pain on arrival States his only PMHx is a heart murmur, which he follows his PCP for and bilateral hip replacements in 2009 Arrives A&Ox4, no respiratory distress noted while on RA, PERRLA documented in this encounter [facility] Work Phone: 01-27-2024 Emergency department Triage note Patient comes in as a transfer from [facility] here for an orthopedic consult; he fell on Saturday after tripping over a tree stump and landing on his L hip and elbow; denies LOC, denies hitting his head, denies anticoagulation use; waited until today to go to [place], where they found him to have a L hip fx; patient was given 50mcg of Fentanyl prior to leaving [place], and denies pain on arrival States his only PMHx is a heart murmur, which he follows his PCP for and bilateral hip replacements in 2009 Arrives A&Ox4, no respiratory distress noted while on RA DAVEMERCEDEZ [facility] 01-27-2024 Physician Emergency department Note Limitations to History: None HPI: Patrice Joel is a 83 y.o. who presents to the ED with L periprosethic femur fracture from [place]. He was standing on wooden pallet and it broke and he fell down. He landed right on his left hip. He was having worsening pain it was difficult for him to walk at home so went to [place] where he was found to have a [...] the patient/results with: Trauma and Ortho Jaden Gonzlaez MD 01/27/242229 [facility] Work Phone: 01-08-2024 Telephone encounter Note Appointment noted. [facility] Work Phone: 01-08-2024 Miscellaneous Notes Appointment noted. S: Patient spoke with [facility] nurse regarding Numbness of face, unregulated saliva [...] enough liquids, chapped lips.) Protocols used: Swallowing Dkltkdobks-HSIKQ-ZX, Mouth Noyrdvhp-HFNAJ-YI documented in this encounter [facility] 01-07-2024 Telephone encounter Note S: Patient spoke with [facility] nurse regarding Numbness of face, unregulated saliva [...] enough liquids, chapped lips.) Protocols used: Swallowing Cwjpymhhrj-CIEPB-XJ, Mouth Agtlqmtx-OBLJT-JI [facility] 01-02-2024 Instructions Toya Jacobsen PA-C - [...] Toya Jacobsen PA-C documented in this encounter [facility] 01-02-2024 Note HNO ID: [id number] Author: TOYA JACOBSEN PA-C Service: ? Author Type: Physician Food Service Team Member Type: Progress Notes Filed: 01/02/2024 11:35 Note [...] No pre-treatment Treatment (more content not included)... [facility] 01-02-2024 History of Present illness Narrative [...] which included preparing to see the patient, xylo-pq-mvpr patient care, completing clinical documentation, performing a medically appropriate examination, counseling and educating the patient/family/caregiver, ordering medications, tests, or procedures, and communicating results to the patient/family/caregiver. documented in this encounter [facility] 02-19-2023 Instructions Joe Rodriguez APRN.[facility] - 02/19/2023 11:48 AM EDT Cellulitis Cellulitis [...] are feeling worse documented in this encounter [facility] 02-19-2023 Note HNO ID: [id number] Author: Joe Rodriguez APRN.[facility]TER Service: ? Author Type: Nurse Practitioner Type: [...] wound of le (more content not included)... [facility] 02-19-2023 History of Present illness Narrative [...] 3) wound check-patient had mole removed by residential manager 1 week prior, patient reports no complications [...] home dressing changes. Advise close follow-up with residential manager as needed. Patient given educational materials - [...] 02/19/2023 11:34 AM documented in this encounter [facility] 01-03-2023 Telephone encounter Note Based on my last visit he refused to complete this with any sort of contrast and did not wish to proceed further. If this has changed please let me know. [facility] 01-03-2023 Miscellaneous Notes Based on my last visit he refused to complete this with any sort of contrast and did not wish to proceed further. If this has changed please let me know. Name of caller: Iris Contact phone number: [phone] Relationship to Patient: 95 [facility] Card[facility] Provider: Stacia Practice: Kylee CALLES Chief [...] their call: No documented in this encounter [facility] 01-03-2023 Telephone encounter Note Name of caller: Iris Contact phone number: [phone] Relationship to Patient: [address] [facility] Provider: [...] business hours to return their call: No [facility] [employer] [facility] 12-24-2022 Telephone encounter Note [employer]con[employer] message sent. [facility] 12-24-2022 Miscellaneous Notes Mychart message sent. Detailed [...] to the patient. documented in this encounter [facility] 12-24-2022 Telephone encounter Note Detailed message given to patient, who voiced understanding. Patient does not have a urologist and questions who you would refer him to? Please respond to patient via My Chart with your referral/recommendation. [facility] 12-24-2022 Telephone encounter Note Per Dr. Fallon's lab result note: Kamryn Ibrahim, Only finding is that your PSA is quiet high at 18. I would recommend follow up with urology given how high this is, as it may represent prostate cancer. It has almost doubled from last year. Sincerely, Hadley Fallon MD [facility] 12-24-2022 Telephone encounter Note Left message to call back on patient's name-identified voicemail. Please relay the message to the patient. [facility] 11-24-2022 Evaluation + Plan note Associated Problem(s): Elevated PSA Continuing to follow PSA. [facility] 11-24-2022 Miscellaneous Notes Associated Problem(s): Elevated PSA Continuing to follow PSA. Associated Problem(s): Primary hypertension His BP is well controlled today on amlodipine only. No change to this. Basic labs ordered for monitoring. Discussed rationale for previously ordered Echo (new murmur identified at previous visit). He refuses secondary to use of contrast. documented in this encounter [facility] 11-24-2022 Evaluation + Plan note Associated Problem(s): Primary hypertension His BP is well controlled today on amlodipine only. No change to this. Basic labs ordered for monitoring. Discussed rationale for previously ordered Echo (new murmur identified at previous visit). He refuses secondary to use of contrast. [facility] 11-22-2022 History of Present illness Narrative Images from the original note were not included. [facility] [address] [facility] [address] Dept: [phone] Dept Chief Complaint: Patrice Joel is an [...] No results found. documented in this encounter [facility] 11-22-2022 Instructions Hadley Fallon MD - [...] Recommendations: A preventive eye exam by an medical records specialist is recommended every 1-2 years to screen for glaucoma, cataracts, macular degeneration, and other eye disorders. A preventive dental visit is recommended every 6 months. Try to get at least 150 minutes of exercise per week or 10,000 steps per day on a pedometer. You need 1200-1500mg of calcium and 4651-0649 international units of vitamin D per day. [...] or a motorcycle documented in this encounter [facility] 10-26-2022 History of Present illness Narrative Images from the original note were not included. [facility] [address] [facility] [address] Dept: [phone] Dept Visit Date: 10/26/22 HPI: Patrice Joel [...] 10/26/2022 2:50 PM documented in this encounter [facility] 10-23-2022 Telephone encounter Note Made appt 10/26 at 11:20 with Larissa Fallon'jennifer limited availability- pt states he needs medication changed sooner rather than later [facility] 10-23-2022 Miscellaneous Notes Made appt 10/26 [...] the contrast. His test is scheduled at [facility] 11/06/2022 Pt also states he has been [...] printed to take it somewhere else since [facility] is scheduling out too far. Patient has questions about the test that was ordered and patient is requesting phone call back. documented in this encounter [facility] 10-23-2022 Telephone encounter Note LM on name identified VM to return call regarding response from Dr Fallon. Please schedule pt for follow up with Dr Fallon [facility] 10-23-2022 Telephone encounter Note There is [...] service animals and not emotional support. T [facility] 10-23-[address] Fallon: I spoke with pt, he is concerned about the contrast dye in the ECHO, brother almost from the contrast. His test is scheduled at [facility] 11/06/2022 Pt also states he has been [...] the necessity of keeping his pet? T [facility] 10-18-2022 Telephone encounter Note Patient came into office and wanted his Echo Order printed to take it somewhere else since [facility] is scheduling out too far. Patient has questions about the test that was ordered and patient is requesting phone call back. T [facility] 09-06-2022 Miscellaneous Notes Your TSH is low but T3 and T4 are normal. Because those are normal I do not recommend starting anything. This is something we will just want to continue monitoring. My suggestion would be repeating in 6 months to a year and less symptoms of either hypo or hyperthyroid occur. documented in this encounter [facility] 09-06-2022 Progress note Formatting of t [...] symptoms of either hypo or hyperthyroid occur. [facility] 09-05-2022 History of Present illness Narrative Images from the original note were not included. [facility] [address] [facility] [address] Visit Type: Office Visit PCP: Hadley [...] Name Age of Onset Cancer Mother Other ([id number]) Brother No Known Problems Daughter Objective BP [...] 09/07/2022 11:09 PM documented in this encounter [facility] 08-17-2022 Telephone encounter Note Spoke to pt released message from Isabel to pt. Pt understood and will schedule test. [facility] 08-17-2022 Miscellaneous Notes Spoke to pt released message from Isabel to pt. Pt understood and will schedule test. Home Sleep Study; Auth approved through [employer] Auth#; [id number] Exp; 11.14.2022 Call; [phone] to schedule ECHO; Auth approved through [employer] Auth#; [id number] Exp; 11.11.2022 Call; [phone] to schedule Unsure and suspect unlikely to [...] walking overa week ago. Was seen at [facility] and BP was elevated at that time [...] understands care advice. Please contact pt at [phone] to set up ECHO and cpap testing. Instructed to call back with any further questions or concerns. Reason for Disposition Systolic BP >= 130 OR Diastolic >= 80, and is taking BP medications Protocols used: Blood Pressure - [id number] documented in this encounter [facility] 08-17-2022 Telephone encounter Note Home Sleep Study; Auth approved through [employer] Auth#; [id number] Exp; 11.14.2022 Call; [phone] to schedule ECHO; Auth approved through [employer] Auth#; [id number] Exp; 11.11.2022 Call; [phone] to schedule [facility] 08-17-2022 Telephone encounter Note Unsure and suspect unlikely to get tests done before that appointment. Due to multiple factors, most of that testing can take a month or more to get done. Taking in the morning is fine. The dose may need increased to help bring that down. [facility] 08-17-2022 Telephone encounter Note S: Patient spoke with CAC nurse regarding hypertension B: Onset of symptoms/concern couple weeks, high this morning A: Pt was seen last week for high BP. Was given lisinopril. Had an episode of difficulty walking overa week ago. Was seen at [facility] and BP was elevated at that time [...] understands care advice. Please contact pt at [phone] to set up ECHO and cpap testing. Instructed to call back with any further questions or concerns. Reason for Disposition Systolic BP >= 130 OR Diastolic >= 80, and is taking BP medications Protocols used: Blood Pressure - [id number] [facility] 08-15-2022 History of Present illness Narrative Images from the original note were not included. Podiatry Last PCP Visit and Provider: Office Visit 08/08/2022 [facility] Family Medicine Hadley Fallon MD Family Medicine Primary hypertension +4 more Dx ER Follow-up Reason for Visit Images from the original note were not included. VENESSA Tony, PA-C [facility] [address] [place] [address] Dept: [phone] Dept Patient: Patrice Joel : 1940 Date [...] physical debility 3. Enlarged and hypertrophic nails [facility] Plan: Fungal nails, chronic stable [...] he was instructed to contact myself via IQzone or call the office with any questions or concerns. Matthew Perez PA-C documented in this encounter [facility] 08-09-2022 Miscellaneous Notes His lab work [...] looked overall good. documented in this encounter [facility] 08-09-2022 Progress note Formatting of t [...] number of things. Cholesterol looked overall good. [facility] 08-08-2022 History of Present illness Narrative Images from the original note were not included. [facility] [address] [facility] [address] Visit type: Established Patient Reason for Visit: ER Follow-up (Hypertension, dizziness, summa [place], had labs and MRI) Assessment and Plan [...] test; Future Enlarged and hypertrophic nails - [facility]; Future Newly recognized murmur - [...] Name Age of Onset Cancer Mother Other ([id number]) Brother No Known Problems Daughter Objective BP [...] 08/10/2022 10:56 PM documented in this encounter [facility] 05-28-2022 Instructions Letty Shen APRN.[facility] - 05/28/2022 5:49 PM EST 05/28/22 02/05/22 [...] or other concerns. documented in this encounter [facility] 05-28-2022 History of Present illness Narrative This note was created using MAZ. Subjective Patrice oJel is a 82 year old male. HPI [...] earlier but not now. is in the fdc, actively passing. Denies shortness of breath, headache [...] which included preparing to see the patient, [id number] patient care, completing clinical documentation, obtaining and/or reviewing separately obtained history, performing a medically appropriate examination, counseling and educating the patient/family/caregiver, and ordering medications, tests, or procedures. documented in this encounter [facility] 08-28-2020 Hospital Discharge instructions Alex Nair MD - 08/28/2020 Remove packing as I showed how tomorrow morning, recheck with your doctor and return if any worsening problems would occur including recurrent bleeding or any bleeding anyplace else. The following attachments cannot be sent through Care Everywhere.Nosebleeds (Marshallese)documented in this encounter [facility] Work Phone: Evaluation [...] diagnosis of hypertension [facility] Diagnosis Primary hypertension- Primary Unspecified essential hypertension Dizziness and giddiness Observed sleep apnea Enlarged and hypertrophic nails Newly recognized murmur [facility] Diagnosis Pain due to onychomycosis of toenails of both feet- Primary Age-related physical debility Enlarged and hypertrophic nails documented in this encounter [facility]* Diagnosis Primary hypertension- Primary Unspecified essential hypertension Elevated TSH Other abnormal blood chemistry [facility] Diagnosis Primary hypertension- Primary Unspecified essential hypertension Dizziness Dizziness and giddiness [facility] Diagnosis Essential (primary) hypertension- Primary Unspecified essential hypertension [facility] Diagnosis Routine general medical examination at health care facility- Primary Routine general medical examination at a health care facility Primary hypertension Unspecified essential hypertension Elevated PSA Elevated prostate specific antigen (PSA) Vaccine refused by patient [facility] Diagnosis Other specified abnormal findings of blood chemistry- Primary [facility] Diagnosis Elevated PSA, between 10 and less than 20 ng/ml- Primary [facility] Diagnosis Puncture wound of left index finger- Primary Localized erythema Unspecified erythematous condition Visit for wound check Encounter for other specified aftercare [facility] Diagnosis Bilateral impacted cerumen- Primary Impacted cerumen [facility] Diagnosis Periprosthetic fracture of proximal end of femur documented in this encounter [facility] Work Phone: Evaluation note* Diagnosis Periprosthetic fracture of proximal end of femur- Primary Periprosthetic fracture of proximal end of femur documented in this encounter [facility] Work Phone: Evaluation note* Diagnosis Periprosthetic fracture of proximal end of femur documented in this encounter [facility] Work Phone: Evaluation note* Diagnosis 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, initial encounter (Multi)- Primary documented in this encounter [facility] Work Phone: Evaluation note* Diagnosis Periprosthetic fracture of proximal end of femur- Primary Periprosthetic fracture of proximal end of femur Closed fracture of left femur, unspecified fracture morphology, unspecified portion of femur, initial encounter Closed fracture of left femur, unspecified fracture morphology, unspecified portion of femur, initial encounter Murmur Undiagnosed cardiac murmurs documented in this encounter [facility] Work Phone: Hospital Discharge instructions* Attachments The following attachments cannot be sent through Care Everywhere. * N[facility]eds (Marshallese) [facility]: Reason for referral (narrative)* Consultation (Routine) - Pending Review Specialty Diagnoses / Procedures Referred By Contac t Referred To Contact Urology Diagnoses Elevated PSA, between 10 and less than 20 ng/ml Procedures LA OFFICE/OUTPATIENT NEW HIGH MDM 60-74 MINUTES Hadley Fallon MD [facility] [address] [place] [address] [facility] [address] [place] [address] Referral ID Status Reason Start Date Expiration Date Visits Requested Visits Authorized [id number] Pending Review Specialty Services Required 12/24/2022 12/24/2023 1 1 [facility] for visit Narrative* Imaging (Routine) - Pending Review Specialty Diagnoses / Procedures Referred By Contac t Referred To Contact Radiology Diagnoses Periprosthetic fracture of proximal end of femur Procedures XR pelvis 1-2 views XR pelvis 1-2 views Michelle Bragg PA-C [address] Department [place] [address] Phone: tel: fax: Referral ID Status Reason Start Date Expiration Date Visits Requested Visits Authorized [id number] Pending Review Perform Procedure 04/16/2024 04/16/2025 1 1 [facility] Work Phone: Reason for visit Narrative* Imaging (Routine) - Pending Review Specialty Diagnoses / Procedures Referred By Carol van Referred To Contact Radiology Diagnoses Periprosthetic fracture of proximal end of femur Procedures XR femur left 2+ views XR femur left 2+ views Michelle Bragg PA-C [address] Department [place] [address] Phone: tel: fax: Referral ID Status Reason Start Date Expiration Date Visits Requested Visits Authorized [id number] Pending Review Perform Procedure 04/16/2024 04/16/2025 1 1 [facility] Work Phone: Summary Purpose Family History No Family History Records FoundNo Family History Records FoundNo Family History Records FoundNo Family History Records FoundNo Family History Records FoundNo Family History Records FoundNo Family History Records FoundNo Family History Records FoundNo Family History Records FoundNo Family History Records Found Advance Directives Documents on File Type Date Recorded Patient Batch Tester Expl anation ACP-Advance Directive ACP-Power of Director Of Business Services Documents on File Type Date Recorded Patient Batch Tester Expl anation ACP-Advance Directive ACP-Power of Director Of Business Services Date Activated Date Inactivated Comments 01/30/2024 4:39 [...] foot, initial encounter Alex Nair MD [address] [place] [address] [facility] [address] [place] [id number] Scheduling Instructions [place] [address] Specialty Diagnoses / Procedures Referred By Carol van Referred To Contact Cardiology Diagnoses Newly recognized murmur Procedures Transthoracic echocardiogram (TTE) limited with contrast, bubble, strain, and 3D PRN LA ECHO TRANSTHORC R-T 2D W/WO M-MODE REC F-UP/LMTD LA DOP ECHOCARD PULSE WAVE W/SPECTRAL F-UP/LMTD STD LA DOP ECHOCARD COLOR FLOW VELOCITY MAPPING LA 2D TTE W OR W/O FOL W/CON,FU Hadley Fallon MD [address] [place] [address] [place] [address] Referral ID Status Reason Start Date Expiration Date Visits Requested Visits Authorized [id number] Pending Review Perform Procedure 08/08/2022 02/04/2023 1 1 Specialty Diagnoses / Procedures Referred By Carol t Referred To Contact Podiatry Diagnoses Enlarged and hypertrophic nails Procedures LA OFFICE/OUTPATIENT NEW HIGH MDM 60-74 MINUTES Hadley Fallon MD [facility] [address] [place] [address] Matthew Perez PA-C 1 [facility] [address] [place] [address] Referral ID Status Reason Start Date Expiration Date Visits Requested Visits Authorized [id number] Pending Review Specialty Services Required 08/08/2022 08/08/2023 1 1 Specialty Diagnoses / Procedures Referred By Contac t Referred To Contact Sleep Medicine Diagnoses Primary hypertension Observed sleep apnea Procedures Home sleep test Hadley Fallon MD [address] [facility] [address] [place] [address] Referral ID Status Reason Start Date Expiration Date V isits Requested Visits Authorized [id number] Pending Review 08/08/2022 02/04/2023 1 1 Specialty Diagnoses / Procedures Referred By Contac t Referred To Contact Radiology Diagnoses Periprosthetic fracture of proximal end of femur Procedures XR femur left 2+ views Michelle Bragg PA-C [address] Department of Orthopedics [place] [id number] Referral ID Status Reason Start Date Expiration Date Visits Requested Visits Authorized [id number] Authorized Perform Procedure 02/18/2024 02/17/2025 1 1 Specialty Diagnoses / Procedures Referred By Contac t Referred To Contact Radiology Diagnoses Periprosthetic fracture of proximal end of femur Procedures XR pelvis 1-2 views Michelle Bragg PA-C [address] Department [facility]oped[facility] [place] [id number] Referral ID Status Reason Start Date Expiration Date Visits Requested Visits Authorized [id number] Authorized Perform Procedure 02/18/2024 02/17/2025 1 1 [...] sent through Care Everywhere. * Foot Fracture (Marshallese) documented in this encounter Assessments Diagnosis Closed fracture of right foot, initial encounter Additional Source Comments (unrecognized sect ion and content) No Status Records FoundNo Status Records FoundNo Status Records FoundNo Status Records FoundNo Status Records FoundNo Status Records FoundNo Status Records FoundNo Status Records FoundNo Status Records FoundNo Status Records Found INFORMATION SOURCE (unrecogn ized section and content) DATE CREATED AUTHOR 12/06/2017 [facility] DATE CREATED AUTHOR AUTHOR'S ORGANIZ ATION 09/09/2020 [facility] DATE CREATED AUTHOR AUTHOR'S ORGANIZ ATION 12/04/2021 [facility] DATE CREATED AUTHOR AUTHOR'S ORGANIZ ATION 01/04/2024 [facility] DATE CREATED AUTHOR AUTHOR'S ORGANIZ ATION 01/09/2024 [facility] DATE CREATED AUTHOR AUTHOR'S ORGANIZ ATION 01/29/2024 [facility] DATE CREATED AUTHOR AUTHOR'S ORGANIZ ATION 02/09/2024 [facility] DATE CREATED AUTHOR AUTHOR'S ORGANIZ ATION 02/24/2024 [facility] DATE CREATED AUTHOR AUTHOR'S ORGANIZ ATION 03/06/2024 [place] DATE CREATED AUTHOR AUTHOR'S ORGANIZ ATION 04/22/2024 [facility] Reason for Visit (unrecogniz ed section and content) Reason Comments Foot Pain Reason Comments Epistaxis Reason Comments Epistaxis R nare Reason Comments blood pressure Sxs for high 153/72, and 145/70, was last reading's Reason Comments ER Follow-up Hypertension, dizzin ess, deandrea Emily, had labs and MRI Reason Comments Foot Problem [employer] Hypertrophic nail s Specialty Diagnoses / Procedures Referred By Contac t Referred To Contact Physician Food Service Team Member / Podiatry Diagnoses Enlarged and hypertrophic nails Procedures LA OFFICE/OUTPATIENT NEW HIGH MDM 60-74 MINUTES Hadley Fallon MD [address] [facility] [address] [place] [address] Matthew Perez PA-C 1 [facility]. [address] [place] [address] Referral ID Status Reason Start Date Expiration Date V isits Requested Visits Authorized [id number] Closed Specialty Services Required 08/08/2022 08/08/2023 1 [...] femur left 2+ views Michelle Bragg PA-C [address] [facility] Department [place] [address] Referral ID Status Reason Start Date Expiration Date Visits Requested Visits Authorized [id number] Authorized Perform Procedure 02/18/2024 02/17/2025 1 1 Reason Comments Follow-up femur Reason Comments Hip Pain Left hip/leg pain Reason Comments Fall Hip Pain Specialty Diagnoses / Procedures Referred By Carol t Referred To Contact Diagnoses Closed fracture of left femur, unspecified fracture morphology, unspecified portion of femur, initial encounter hip fracture Procedures No [place] [address] [place] [address] [facility] [place] [address] [place] [address] Referral ID Status Reason Start Date Expiration Date Visits Re quested Visits Authorized [id number] 1 1 Ordered Prescriptions (unrec ognized section and content) Prescription Sig Dispensed Refills Start Date End Da te amoxicillin (AMOXIL) 500 MG capsule Take 1 capsule by mouth 3 times daily for 7 days 21 capsule 0 09/01/2020 09/08/2020 Care Teams (unrecognized sec tion and content) Corsetier Relationship Specialty Start Date End Date Hadley Fallon MD [address] [place] [address] PCP - General Family Medicine 10/27/21 Corsetier Relationship Specialty Start Date End Date Dalton Graham MD [address] [facility] [address] [place] [address] PCP - General Internal Medicine 12/30/18 Corsetier Relationship Specialty Start Date End Date Hadley Fallon MD [address] [facility] [address] [place] [address] PCP - General 10/27/21 Corsetier Relationship Specialty Start Date End Date Hadley Fallon MD [address] [facility] [address] [place] [address] PCP - General 10/27/21 Corsetier Relationship Specialty Start Date End Date Hadley Fallon MD [address] [facility] [address] [place] [address] PCP - General 10/27/21 Corsetier Relationship Specialty Start Date End Date Hadley Fallon MD [address] [facility] [address] [place] [address] PCP - General 10/27/21 Corsetier Relationship Specialty Start Date End Date Hadley Fallon MD [address] [facility] [address] [place] [address] PCP - General 10/27/21 Corsetier Relationship Specialty Start Date End Date Hadley Fallon MD [address] [place] [address] PCP - General 10/27/21 Corsetier Relationship Specialty Start Date End Date Hadley Fallon MD [address] [place] [address] PCP - General 10/27/21 Corsetier Relationship Specialty Start Date End Date Hadley Fallon MD [address] [place] [address] PCP - General 10/27/21 Corsetier Relationship Specialty Start Date End Date Hadley Fallon MD [address] [place] [address] PCP - General 10/27/21 Corsetier Relationship Specialty Start Date End Date Hadley Fallon MD [address] [place] [address] PCP - General 10/27/21 Corsetier Relationship Specialty Start Date End Date Hadley Fallon MD [address] [place] [address] PCP - General 10/27/21 Corsetier Relationship Specialty Start Date End Date Hadley Fallon MD [address] [place] [address] PCP - General 10/27/21 Corsetier Relationship Specialty Start Date End Date Hadley Fallon [address] [place] [address] PCP - General Family Medicine 02/19/23 Corsetier Relationship Specialty Start Date End Date Hadley Fallon MD [address] [place] [address] [place] [address] PCP - General Family Medicine 02/19/23 Corsetier Relationship Specialty Start Date End Date Hadley Fallon MD [facility] [address] [address] PCP - General 10/27/21 Corsetier Relationship Specialty Start Date End Date Generic Provider, [place] [address] PCP - General Director Experimental Medicine 01/27/24 Corsetier Relationship Specialty Start Date End Date Generic Provider, No [place] [address] PCP - General Director Experimental Medicine 01/27/24 Corsetier Relationship Specialty Start Date End Date Generic Provider, No [place] [address] PCP - General Director Experimental Medicine 01/27/24 Corsetier Relationship Specialty Start Date End Date Generic Provider, No [place] [address] PCP - General Director Experimental Medicine 01/27/24 Source Comments (unrecognize d section and content) In the event this informatio n is protected by the Federal Confidentiality of Alcohol and Drug Abuse Patient Records regulations: The Federal rules restrict any use of the information to criminally investigate or prosecute any alcohol or drug abuse patient.Uk HealthcareIn the event this information is protected by the Federal Confidentiality of Alcohol and Drug Abuse Patient Records regulations: The Federal rules restrict any use of the information to criminally investigate or prosecute any alcohol or drug abuse patient.Uk HealthcareIn the event this information is protected by the Federal Confidentiality of Alcohol and Drug Abuse Patient Records regulations: The Federal rules restrict any use of the information to criminally investigate or prosecute any alcohol or drug abuse patient.[facility] Scheduled Active and Recently Administ ered Medications [...] Hanks RN) 0134 (Given - Provider: Nunu oSto RN)1001 (Given - Provider: Lucy Mckeon RN)[phone] [...] BE BASED ON THE PRIMARY CLINICAL RECORDS. [employer] [facility]. provides no warranty or guarantee of the accuracy or completeness of information in this document.
--- NOTE | 2024-11-15 14:55 | CT_ITS ---
EXAM: BRAIN/HEAD WITHOUT CONTRAST CLINICAL HISTORY: 84 y/o M with WEAKNESS. COMPARISON: None. TECHNIQUE: Routine CT imaging of the head without IV contrast. Additional multiplanar reformats were obtained. Dose reduction techniques were used including intermediate exposure control (AEC),iterative reconstruction technique, and/or mA and/or KV dose adjustments based on patient's size. FINDINGS: Mild generalized cerebral volume loss concordant prominence of the ventricles and subarachnoid spaces. There is no evidence of acute intracranial hemorrhage or herniation. There is no midline shift or extra-axial collection. Moderate patchy supratentorial white matter hypodensities. The menendez and white matter interfaces are otherwise maintained. Prior ocular lens replacements. Complete opacification of the right maxillary sinus. Left mastoid effusion. The visualized paranasal sinuses and mastoids are unremarkable. No acute calvarial fracture or scalp hematoma. CT/Brain/Head without Contrast IMPRESSION: No acute intracranial finding. Reading Location: [id number]
--- NOTE | 2024-11-15 14:55 | CASEMGMT ---
Care Management Face to Face with patient for initial transition planning/care coordination assessment in the ED.? This script writer introduced self and role at [facility]. Patient alert and oriented. Patient willing to participate in assessment and is able to answer all questions appropriately.? Care providers, pharmacy, and demographics verified. Admitting Diagnosis: Acute Hyponatremia Other diagnosis history: Including but not limited to: HTN and history of tonsillectomy and bilateral hip replacements. PCP: Dr. Guilherme Sanchez Specialists: Patient stated he also has an experimental doctor however wasn?t able to remember the name or practice that this doctor is through. Chiropractor: Dr. Braulio Robles, of [place]. Preferred Pharmacy: [facility] Insurance: [employer] Prescription Benefit: Patient stated he?s not sure because he doesn?t take any prescribed medications at this time and only takes liquid herbal extracts. Living Will/HPOA: ?Not in place but may be interested in completing during current admission.? Patient currently ambivalent. LNOK: Patient is and has a daughter, Haily Garcia who resides in [place]. Living Arrangements: Patient lives in apartment with his friend, Haily whom patient stated has been living with him for almost a year.? Details of how patient met his friend are unknown and patient made a reference to Haily having stayed in a camper for a period of time. It appears as though documentation referencing patient?s ?Home Health Aide? was in fact, Haily as patient stated he does not have an aide.? Patient did confirm that Haily has been out of town and is supposed to get back into town today. Patient stated Haily is the one who has been helping him for ?free?. Transportation: Patient drives. DME: [employer] (unknown who through). Patient was wearing his pendant at the time of the assessment however there wasn?t a sticker that provided the name of the company pendant is through. Patient also stated he has a walking forearm crutch, grab bar in shower, grab bar by toilet, hand-held shower, shower bench and a raised toilet seat. Patient is extremely hard of hearing and stated he lost his hearing aids. Patient stated he has one left that his daughter is charging for him. HHC: Denied SNF/Rehab: Patient stated he was in the [facility] this past year but was not able to state what for. Community Resources: Emergency Response Device Provider (company name unknown) Behavioral Health History: Patient stated he has a history of depression as a child but denied any current depression or medication for depression. Patient goals: Patient wishes to discharge home when medically ready. Based on patient?s current weakness, patient may benefit from [facility] to increase strength and mobility. ?Patient denies any further needs or concerns at this time. Disposition Plan: Admission to acute; RN CM/SW to follow for discharge planning needs that may arise. Bologna Maker recommending acute RN CM/SW to make a referral to [facility] prior to discharge due to self-neglect.? Patient has not been able to adequately care for himself, has only had minimal amounts of food due to not being able to prepare own meals and has gone for more than 24 hours without food intake. Patient also appears to be in need of a referral to a rough rice grader. Bologna Maker recommending mechanical planner making contact with patient?s daughter and [id number] (after obtaining patient consent) in order to get more information and to ensure patient will not be discharged home alone. Larissa Car, MACHINE JOINT CUTTER, RADIOLOGY CT TECHNOLOGIST
--- NOTE | 2024-11-15 15:02 | ECHOD_ITS ---
Reason For Study Reason For Study: TIA/CVA Procedure This was a 2D Doppler, Color Flow transthoracic echocardiogram. Technically difficult study, echo done with patient sitting at 90 degrees. Patient could not tolerate pedoff probe. Exam performed portable in patient room. Left Ventricle Normal LV size. Left ventricular systolic function is normal. Stage 1 diastolic dysfunction. The left ventricular ejection fraction is 60 %. No regional wall motion abnormalities noted. Right Ventricle Normal RV size. Normal systolic function. Tricuspid Valve Normal tricuspid valve. Mild (1+) tricuspid valve insufficiency. Pulmonary artery systolic pressure is 35 mmHg. Aortic Valve Trisinus/trileaflet aortic valve. Moderate focal aortic valve calcification. Peak aortic valve gradient 91 mmHg. Mean aortic valve gradient 53 mmHg. Severe aortic stenosis. Mild (1+) aortic valve insufficiency. MMode/2D Measurements & Calculations LVIDd: 6.1 cm IVSd: 1.1 cm LVOT diam: 2.1 cm LVIDs: 3.4 cm LVPWd: 0.93 cm LVOT area: 3.4 cm2 RVDd: 4.3 cm FS: 43.9 % LAV(MOD-bp): 116.8 ml LA A4 area: 32.8 cm2 LA dimension(2D): 4.1 cm LAV(MOD-bp) Indexed: 52.9 ml/m2 LAV(MOD-sp2): 103.4 ml LAV(MOD-sp4): 111.7 ml RA A4 area: 16.5 cm2 Time Measurements MV dec time: 0.33 sec Doppler Measurements & Calculations MV E max francesco: 58.2 cm/sec Lat Peak E' Francesco: 12.9 cm/sec Med Peak E' Francesco: 6.5 cm/sec MV A max francesco: 99.2 cm/sec E/E' lat: 4.5 E/E' med: 9.0 MV E/A: 0.59 MV V2 max: 102.9 cm/sec MV P1/2t max francesco: 81.5 cm/sec Ao V2 max: 478.0 cm/sec MV max P.2 mmHg MV P1/2t: 130.7 msec Ao max P.4 mmHg MV V2 mean: 53.4 cm/sec MV dec slope: 182.7 cm/sec2 Ao V2 mean: 341.6 cm/sec MV mean P.3 mmHg Ao mean P.7 mmHg MV V2 VTI: 36.1 cm MVA(P1/2t): 1.7 cm2 Ao V2 VTI: 114.0 cm MVA(VTI): 3.0 cm2 AV (velocity ratio): 0.27 CJ(I,D): 0.94 cm2 CJ(V,D): 0.82 cm2 AI max francesco: 366.9 cm/sec LV V1 max: 114.7 cm/sec SV(LVOT): 106.9 ml AI max P.8 mmHg LV V1 max P.3 mmHg AI dec slope: 213.3 cm/sec2 LV V1 mean P.3 mmHg AI P1/2t: 503.9 msec LV V1 mean: 85.9 cm/sec LV V1 VTI: 31.2 cm TR max francesco: 283.4 cm/sec TR max P.1 mmHg ECHO/Echo Complete Interpretation Summary Normal LV size. Left ventricular systolic function is normal. Stage 1 diastolic dysfunction. The left ventricular ejection fraction is 60 %. Mean aortic valve gradient 53 mmHg. Moderate focal aortic valve calcification. Severe aortic stenosis. Ordering Physician: Shannan Patterson Performed By: Carmine Florian RCS
--- NOTE | 2024-11-15 15:32 | PCM.HOSP.N ---
Hospitalist Note Patient did spike a mild temperature on the floor, on physical exam he does appear to have a cellulitis of his toe on his right foot without any overt purulence, will start on Unasyn
[2024-11-15 15:53] LABS: Osmolality, Urine 670 mOsm/KG
[2024-11-15] MEDS: 0.9% Saline Lock 10 ML Syringe IV (16:02)
[2024-11-15] MEDS: 0.9% Normal Saline (1000mL) 1,000 ML 100 ML IV (16:02)
--- NOTE | 2024-11-15 16:50 | RAD_ITS ---
PROCEDURE: HIPS B/L MIN 2 VIEWS W/ PELVIS 11/15/2024 REASON FOR EXAM: POST FALL W/ HIP PAIN. Initial encounter. TECHNIQUE: HIPS B/L MIN 2 VIEWS W/ PELVIS FINDINGS: Bones: Bilateral total hip arthroplasty. The hip arthroplasty hardware is well- positioned and intact. No obvious hardware complication. Proximal left hip/femur also demonstrates status post open reduction internal fixation of proximal left femur fracture with plates and screws and a cerclage wire. The fixation hardware is intact, well-positioned and without obvious complication. Soft tissues: Unremarkable soft tissues Other: No fractures of [place] surrounding bone RAD/Hips B/L min 2 views w/ Pelvis IMPRESSION: No acute fracture identified. Hardware as described above. Reading Location[facility]
[2024-11-15 17:05] LABS: Osmolality, Serum 278 mOsm/KG (280-301)
[2024-11-15] MEDS: Ampicillin/Sulbactam 3 GM in 0.9% Normal Saline (100mL MB+) 100 ML IV ×2 (17:12→23:29)
[2024-11-15 17:16] LABS: Anion Gap 9 (5-15); BUN 21 mg/dL (4-19); BUN/Creat Ratio 25.9 RATIO (10-20); Calcium,Total 8.4 mg/dL (7.6-11.0); Carbon Dioxide 26.1 mmol/L (21.0-32.0); Chloride 93 mmol/L (98-108); Estimated Creatinine Clearance 76.58 ml/min (50-250); Glucose 124 mg/dL (70-99); Potassium 4.2 mmol/L (3.3-5.1)
[2024-11-15 17:46] LABS: Pro- Brain NATRIURETIC PEPTIDE 2964 pg/mL (<=1800)
[2024-11-15 19:52] LABS: Osmolality, Urine 670 mOsm/KG
[2024-11-15 20:07] LABS: Creatinine, Urine (random) 121.00 mg/dL (39.00-259.00); Urea Nitrogen, Urine 1156 mg/dL (NO RANGE EST.)
[2024-11-15 20:47] LABS: Anion Gap 9 (5-15); BUN 22 mg/dL (4-19); BUN/Creat Ratio 27.9 RATIO (10-20); Calcium,Total 8.0 mg/dL (7.6-11.0); Carbon Dioxide 22.7 mmol/L (21.0-32.0); Chloride 96 mmol/L (98-108); Estimated Creatinine Clearance 78.49 ml/min (50-250); Glucose 149 mg/dL (70-99); Potassium 4.0 mmol/L (3.3-5.1)
--- NOTE | 2024-11-15 22:50 | RAD_ITS ---
PROCEDURE: CHEST 1 VIEW (PORTABLE) 11/15/2024 REASON FOR EXAM: ELEVATED PROBNP TECHNIQUE: Frontal view of the chest. COMPARISON: None. FINDINGS: Hardware: EKG lead wires. Heart: Normal size. Lungs: Scattered chronic appearing pleural-parenchymal changes. No pulmonary venous congestion. No pleural effusions. No definite evidence of heart failure. Bones: No aggressive process identified. Other: RAD/Chest 1 View (Portable) IMPRESSION: No radiographic evidence of an acute cardiopulmonary process. Reading Location[facility]
[2024-11-16 03:20] VITALS: BP 115/60; PULSE 64; RESP 18; TEMP 37.7; O2SAT 98
[2024-11-16] MEDS: Ampicillin/Sulbactam 3 GM in 0.9% Normal Saline (100mL MB+) 100 ML IV ×2 (05:02→13:24)
--- NOTE | 2024-11-16 05:24 | NURSING ---
This RN taking over care at this time
[2024-11-16 06:00] VITALS: BP 120/69; PULSE 62; RESP 18; TEMP 36.8; O2SAT 98
--- NOTE | 2024-11-16 06:00 | MRI_ITS ---
PROCEDURE: BRAIN WITHOUT CONTRAST 11/16/2024 REASON FOR EXAM: CONCERN FOR CVA TECHNIQUE: BRAIN WITHOUT CONTRAST Multiplanar and multisequence images were obtained. Sequences obtained were according to protocol do to patient preference. COMPARISON: CT brain, November 15, 2024 FINDINGS: Brain: No focal restricted diffusion. Midline structures are unremarkable. Ventricles: Prominent size of the ventricles and sulci is consistent with age related involution. Major Intracranial Vessels: Normal flow voids present Sinuses: Right maxillary sinusitis Mastoids: Left mastoid effusion MRI/Brain without Contrast IMPRESSION: No evidence of restricted diffusion. No acute brain abnormality detected only limited sequences Age-related changes involution Right maxillary sinusitis Reading Location[facility]
[2024-11-16 06:29] LABS: Hematocrit 29.8 % (40-54); Hemoglobin 10.3 g/dL (13.0-16.5); Immature Granulocytes Count 0.090 X10^3/uL (0.0-0.0); Mean Corp Hgb Conc 34.6 g/dL (32-36); Mean Corpuscular Volume 85.6 fL (80-94); Mean Platelet Vol. 9.5 fl (6.2-12.0); NRBC Flagged by Analyzer 0 % (0-5); POSITIVE DIFFERENTIAL YES; Platelet Count 242 K/mm3 (150-450); RBC Distribution Width CV 14.7 % (11.6-14.6); RBC Distribution Width SD 45.9 fl (35.1-43.9); Red Blood Count 3.48 M/mm3 (4.6-6.2); White Blood Count 8.7 K/mm3 (4.4-11.0)
[2024-11-16 06:47] LABS: Prothrombin Time (Protime)PT. 15.9 SECONDS (11.7-14.9)
[2024-11-16 06:55] LABS: Anion Gap 9 (5-15); BUN 19 mg/dL (4-19); BUN/Creat Ratio 26.3 RATIO (10-20); Calcium,Total 8.0 mg/dL (7.6-11.0); Carbon Dioxide 23.7 mmol/L (21.0-32.0); Chloride 95 mmol/L (98-108); Estimated Creatinine Clearance 78.49 ml/min (50-250); Glucose 122 mg/dL (70-99); Magnesium 2.0 mg/dL (1.5-2.2); Potassium 3.9 mmol/L (3.3-5.1)
[2024-11-16 07:43] VITALS: O2SAT 97
[2024-11-16 07:43] LABS: Cholesterol 91 mg/dL (<=200); Low Density Lipoprotein Calc. 54 mg/dL; Triglycerides 49 mg/dL; Very Low Density Lipoprotein 10 mg/dL (5-40); cholesterol:hdl ratio screen 3.33
[2024-11-16 08:23] VITALS: BP 121/66; PULSE 64; RESP 14; TEMP 37.2; O2SAT 98
[2024-11-16] MEDS: Lidocaine 5% Patch 1 PATCH TOPICAL (08:36)
[2024-11-16 09:48] VITALS: BMI 27.3
--- NOTE | 2024-11-16 11:19 | CASEMGMT ---
Discharge Planning A list of?SNF providers including quality and resource use data and consistent with the patient's preferred geographic region, medical needs, and insurance network was created in [employer] Guide.? This list was provided to the SW. Janet Dunn Discharge Planning Asst.
--- NOTE | 2024-11-16 11:28 | CASEMGMT ---
Addendum entered by Reva Ayon 11/16/24 14:55: Social Work SW let pt know that [facility] accepted and they are starting precert. Pt is agreeable. SW will continue to follow. NITA Mann Addendum entered by Reva Ayon 11/16/24 11:35: Social Work TCU is full. SW spoke w/pt again, explained reviewed therapy notes and pt is a max assist of two. SW explained this would be difficult for his aide, as he is a bigger attila. Pt is agreeable to SNF, SW reviewed the list w/him. He is agreeable to referrals to [facility] and [facility], no order preference. SW let d/c pre planning advisor know, she will make referrals. NITA Mann Original Note: Social Work SW met w/pt in room in regard to discharge plan. Initially pt is adamantly refusing SNF placement, states he has been to those places. He states he will go home. He informs SW he has a live in shredded filler cigar maker machine and a friend Hans who will come over to help. Upon further discussion pt is agreeable to a referral to TCU. SW made referral, will await response. SW does have SNF list for pt, should this be needed, as pt is a max assist X2. If TCU cannot take pt SW will speak w/pt again and follow up w/family w/pt's permission. NITA Mann
--- NOTE | 2024-11-16 11:30 | CASEMGMT ---
Addendum entered by Reva Ayon 11/16/24 14:49: Social Work As per MRI pt did not have a stroke, PHQ-9 not needed at this time. NITA Mann Original Note: Social Work SW attempted to complete PHQ-9 w/pt, pt refused. KENZIE MannS
--- NOTE | 2024-11-16 11:48 | CASEMGMT ---
Addendum entered by Janet Dunn 11/16/24 14:01: [facility] has accepted and will submit for precert. SW updated. Janet Dunn DC Planning Asst. Original Note: Discharge Planning Referral sent to [facility]. Janet Dunn DC Planning Asst.
[2024-11-16] MEDS: 0.9% Saline Lock 10 ML Syringe IV ×3 (12:19→21:35)
[2024-11-16 14:54] VITALS: BP 119/70; PULSE 63; RESP 18; TEMP 36.7; O2SAT 97
[2024-11-16 17:45] VITALS: BMI 27.3
--- NOTE | 2024-11-16 18:47 | PN.HOSP_ITS ---
Reason for Visit Reason for Visit: Diagnoses Other symptoms and signs involving the musculoskeletal system (11/15/24) Subjective Subjective Patient was seen and examined today, he consented to an MRI of the brain but refused to have an MRA of the head and neck performed. MRI of the brain was unremarkable. Due to patient's weakness with PT and OT, he requested to go to a [facility] facility for inpatient skilled services. Patient lives by himself and has minimal aides to help take care of him. Objective Data Objective Data Vital Signs: Vital Signs Temp Pulse Resp BP Pulse Ox O2 Del Method 98.1 F 63 18 119/70 97 Room Air 11/16/24 14:54 11/16/24 14:54 11/16/24 14:54 11/16/24 14:54 11/16/24 14:54 11/16/24 14:54 Oxygen Delivery Method Room Air Weight: 96.6 kg Body Mass Index (BMI) 27.3 Intake & Output: Intake and Output for Last 24 Hours 11/14/24 11/15/24 11/16/24 23:59 23:59 23:59 Intake Total 1646.67 / 1646.67 290 / 290 Output Total 400 / 400 100 / 100 Balance 1246.67 / 1246.67 190 / 190 Lab / Micro Data 11/16/24 05:49 11/16/24 05:49 Labs: Laboratory Results - last 24 hr 11/15/24 13:42: Urine Osmolality 670, Ur Random Sodium 68, Urine Creatinine 121.00, Urine Potassium 47.2, Urine Chloride < 20, Urine Urea Nitrogen 1156 11/15/24 20:00: Sodium 127 L, Potassium 4.0, Chloride 96 L, Carbon Dioxide 22.7, Anion Gap 9, BUN 22 H, Creatinine 0.79, Estim Creat Clear Calc 78.49, Est GFR (MDRD) Non-Af 87, BUN/Creatinine Ratio 27.9 H, Glucose 149 H, Calcium 8.0 11/16/24 05:49: WBC 8.7, RBC 3.48 L, Hgb 10.3 L, Hct 29.8 L, MCV 85.6, MCH 29.6, MCHC 34.6 D, RDW Std Deviation 45.9 H, RDW Coeff of Bud 14.7 H, Plt Count 242, MPV 9.5, Immature Gran % (Auto) 1.000 H, Neut % (Auto) 80.3 H, Lymph % (Auto) 5.5 L, [place] % (Auto) 12.3 H, Eos % (Auto) 0.6, Baso % (Auto) 0.3, Absolute Neuts (auto) 7.0, Absolute Lymphs (auto) 0.48 L, Nucleated RBC % 0, PT 15.9 H, INR 1.3, Sodium 127 L, Potassium 3.9, Chloride 95 L, Carbon Dioxide 23.7, Anion Gap 9, BUN 19, Creatinine 0.72, Estim Creat Clear Calc 78.49, Est GFR (MDRD) Non-Af 90, BUN/Creatinine Ratio 26.3 H, Glucose 122 H, Hemoglobin A1c 5.2, Calcium 8.0, Magnesium 2.0, Triglycerides 49, Cholesterol 91, LDL Cholesterol, Calc 54, VLDL Cholesterol 10, HDL Cholesterol 27 L, Cholesterol/HDL Ratio 3.33 Radiography Diagnostic Testing: Radiology Impression Echocardiogram 11/15/24 15:02 Interpretation Summary Normal LV size. Left ventricular systolic function is normal. Stage 1 diastolic dysfunction. The left ventricular ejection fraction is 60 %. Mean aortic valve gradient 53 mmHg. Moderate focal aortic valve calcification. Severe aortic stenosis. Ordering Physician: Shannan Patterson Performed By: Carmine Florian RCS Hip/Pelvis X-Ray 11/15/24 16:50 IMPRESSION: No acute fracture identified. Hardware as described above. Reading Location: [facility] BEDS AT [facility] Chest X-Ray 11/15/24 22:50 IMPRESSION: No radiographic evidence of an acute cardiopulmonary process. Reading Location: [facility] 234 BEDS AT THE [facility] Brain MRI 11/16/24 06:00 IMPRESSION: No evidence of restricted diffusion. No acute brain abnormality detected only limited sequences Age-related changes involution Right maxillary sinusitis Reading Location: [facility] 234 BEDS AT THE [facility] Physical Exam Const alert, oriented x3, no apparent distress and average body habitus General Appearance: cooperative, well kempt and well developed Orientation / Consciousness: awake, oriented to person, oriented to place and oriented to time HEENT normocephalic and moist oral mucous membranes Eyes PERRL, EOMs intact bilaterally and conjunctivae normal Neck supple, no JVD, thyroid normal and no carotid bruits General: trachea midline Resp normal respiratory effort, no retractions, no use of accessory muscles and clear to auscultation bilaterally Auscultation: Negative for rales, rhonchi or wheezes Cardio regular rate, regular rhythm, S1 normal heart sound, S2 normal heart sound, no murmurs, no rub and no gallops GI normal to inspection, nondistended, normoactive bowel sounds, soft to palpation, non-tender and non-distended Extremity no clubbing, cyanosis or edema Skin no rashes or lesions noted General Skin Exam: no breakdown Neuro oriented x3, CN's II-XII intact bilaterally, no focal motor deficits and no sensory deficits noted Sensorium / Orientation: awake and alert Speech: speech normal Psych affect normal Assessment & Plan Assessment/Plan (1) Generalized weakness: PLAN: Plan 1. Generalized weakness-secondary to deconditioning and advanced age, PT OT will continue to see the patient, he will need temporary placement in a chcf facility due to his debility at the present time. #2 lower extremity weakness-MRI was performed today and it was negative for acute CVA, patient refused to undergo an MRA of the head and neck #3 hyponatremia-etiology unclear, BMP will be ordered tomorrow #4 acute anemia-CBC will be repeated tomorrow, patient has no signs of gastrointestinal bleeding at this time or other reasons for blood loss. Total clinical time spent by myself addressing the patient's medical issues, reviewing all of the data, and collaborating with patient's care team: 35 minutes Charges/Coding Visit Charges Inpatient E&M: 03762 Subs Hosp L2 NIHSS NIHSS Nursing Documentation NIHSS Nursing Documentation: NIHSS: Ischemic Stroke/TIA Start: 11/15/24 15:09 Text: For PCU Patients: NIH and Neuro Check every 4 Status: Complete hours, PRN and with change in RN caregiver. Freq: [id number] Protocol: Activity Type Activity Date Activity User E-sign Co-sign Detail Recorded Client Recorded Date Recorded By Document 11/16/24 08:25 KARLA 0 11/16/24 08:33 KARLA 11/16/24 08:25 NIH Stroke Scale [NIHSS] A score of 0 is normal or asymptomatic . Total possible score is 42. Inpatient: RN or Physician to activate a stroke alert for onset of new stroke symptoms or with NIHSS increase >/= 3 points. Following change in neurological status, NIHSS will be performed per physician order or more frequently PRN. -1a. Level of Consciousness 0 - Alert; keenly responsive -1b. LOC Questions 0 - Answers BOTH questions correctly -1c. LOC Commands 0 - Performs BOTH tasks correctly -2. Best Gaze 0 - Normal -3. Visual 0 - No visual loss -4. Facial Palsy 0 - Normal symmetrical movements -5a. Left Arm 0 - No drift; arm holds 90 ( or 45) degrees for full 10 seconds -5b. Right Arm 0 - No drift; arm holds 90 ( or 45) degrees for full 10 seconds -6a. Left Leg 3 - No effort against gravity ; leg falls to bed immediately -6b. Right Leg 2 - Some effort against gravity; -7. Limb Ataxia UN - Amputation or joint fusion, explain -'UN' explanation B/L hip pain, attempted to assist with heel/mencahca and pt unable to do -8. Sensory 0 - Normal; no sensory loss -9. Best Language 0 - No aphasia; normal -10. Dysarthria 0 - Normal -11. Extinction and Inattention 0 - No abnormality -Total 5 Query Text:A score of 0 is normal or asymptomatic. Total possible score is 42 . ED: Notify Physician for NIHSS increase by > / = 3 points. Inpatient: RN or Physician to activate a stroke alert for NIHSS increase of > / = 3 points. Coma Scale [Assess] -Eye Opening Spontaneous -Motor Obeys Commands -Verbal Oriented [Total] -Coma Scale Total 15
[2024-11-16 21:30] VITALS: BP 128/59; PULSE 60; RESP 16; TEMP 36.8; O2SAT 97
[2024-11-17] VITALS (7 sets, daily range): BP systolic 116–177; BP diastolic 56–84; PULSE 65–74; RESP 16–18; TEMP 36.7–37.2; O2SAT 95–100; BMI 27.3
[2024-11-17] MEDS: Lidocaine 5% Patch 1 PATCH TOPICAL (08:53)
[2024-11-17 09:18] LABS: Hematocrit 33.2 % (40-54); Hemoglobin 11.4 g/dL (13.0-16.5); Immature Granulocytes Count 0.090 X10^3/uL (0.0-0.0); Mean Corp Hgb Conc 34.3 g/dL (32-36); Mean Corpuscular Volume 85.3 fL (80-94); Mean Platelet Vol. 9.1 fl (6.2-12.0); NRBC Flagged by Analyzer 0 % (0-5); POSITIVE DIFFERENTIAL YES; Platelet Count 328 K/mm3 (150-450); RBC Distribution Width CV 14.6 % (11.6-14.6); RBC Distribution Width SD 45.9 fl (35.1-43.9); Red Blood Count 3.89 M/mm3 (4.6-6.2); White Blood Count 9.9 K/mm3 (4.4-11.0)
[2024-11-17 10:00] LABS: Anion Gap 9 (5-15); BUN 17 mg/dL (4-19); BUN/Creat Ratio 24.6 RATIO (10-20); Calcium,Total 8.2 mg/dL (7.6-11.0); Carbon Dioxide 23.1 mmol/L (21.0-32.0); Chloride 95 mmol/L (98-108); Estimated Creatinine Clearance 78.49 ml/min (50-250); Glucose 117 mg/dL (70-99); Potassium 4.7 mmol/L (3.3-5.1)
--- NOTE | 2024-11-17 17:05 | CASEMGMT ---
Social Work SW did update pt that [facility] accepted and we are still waiting for precert. SW inquired if he would like to complete LW/POA, he would like to do so. SW updated CLAUDIA Drew, she will complete documents w/pt as time allows. NITA Mann
--- NOTE | 2024-11-17 17:11 | PCM.PN.HOSP ---
Reason for Visit Reason for Visit: Diagnoses Other symptoms and signs involving the musculoskeletal system (11/15/24) Weakness (11/15/24) Subjective Subjective Patient was seen and examined today, we are currently awaiting approval for him to go to an extended care facility for short-term rehab services. Neurology texted me today and did not feel they needed to see the patient in consultation due to the negative MRI-I agreed, it appears that the consultation was already canceled or was never put in to begin with. Objective Data Objective Data Vital Signs: Vital Signs Temp Pulse Resp BP Pulse Ox O2 Del Method 98.6 F 71 16 177/84 H 100 Room Air 11/17/24 14:15 11/17/24 14:15 11/17/24 14:15 11/17/24 14:15 11/17/24 14:15 11/17/24 14:15 Oxygen Delivery Method Room Air Weight: 96.6 kg Body Mass Index (BMI) 27.3 Intake & Output: Intake and Output for Last 24 Hours 11/15/24 11/16/24 11/17/24 23:59 23:59 23:59 Intake Total 1646.67 / 1646.67 530 / 530 900 / 900 Output Total 400 / 400 550 / 950 1300 / 1300 Balance 1246.67 / 1246.67 -20 / -420 -400 / -400 Lab / Micro Data 11/17/24 09:08 11/17/24 09:08 Labs: Laboratory Results - last 24 hr 11/17/24 09:08: WBC 9.9, RBC 3.89 L, Hgb 11.4 L, Hct 33.2 L, MCV 85.3, MCH 29.3, MCHC 34.3, RDW Std Deviation 45.9 H, RDW Coeff of Bud 14.6, Plt Count 328, MPV 9.1, Immature Gran % (Auto) 0.900, Neut % (Auto) 81.9 H, Lymph % (Auto) 6.1 L, [place] % (Auto) 10.0, Eos % (Auto) 0.8, Baso % (Auto) 0.3, Absolute Neuts (auto) 8.1 H, Absolute Lymphs (auto) 0.60 L, Nucleated RBC % 0, Sodium 127 L, Potassium 4.7, Chloride 95 L, Carbon Dioxide 23.1, Anion Gap 9, BUN 17, Creatinine 0.70, Estim Creat Clear Calc 78.49, Est GFR (MDRD) Non-Af 90, BUN/Creatinine Ratio 24.6 H, Glucose 117 H, Calcium 8.2 Micro: Microbiology 11/15/24 20:00 Blood Culture (Wb) - Anticubital Right Bacteria Detection (PCR) - Final Strep anginosus 11/15/24 20:00 Blood Culture (Wb) - Anticubital Right Blood Culture - Preliminary Physical Exam Narrative alert, oriented x3, no apparent distress and average body habitus General Appearance: cooperative, well kempt and well developed Orientation / Consciousness: awake, oriented to person, oriented to place and oriented to time HEENT normocephalic and moist oral mucous membranes Eyes PERRL, EOMs intact bilaterally and conjunctivae normal Neck supple, no JVD, thyroid normal and no carotid bruits General: trachea midline Resp normal respiratory effort, no retractions, no use of accessory muscles and clear to auscultation bilaterally Auscultation: Negative for rales, rhonchi or wheezes Cardio regular rate, regular rhythm, S1 normal heart sound, S2 normal heart sound, no murmurs, no rub and no gallops GI normal to inspection, nondistended, normoactive bowel sounds, soft to palpation, non-tender and non-distended Extremity no clubbing, cyanosis or edema Skin no rashes or lesions noted General Skin Exam: no breakdown Neuro oriented x3, CN's II-XII intact bilaterally, no focal motor deficits and no sensory deficits noted Sensorium / Orientation: awake and alert Speech: speech normal Psych affect normal Assessment & Plan Assessment/Plan (1) Generalized weakness: PLAN: Plan 1. Generalized weakness-secondary to deconditioning and advanced age, PT OT will continue to see the patient, he will need temporary placement in a custodial facility due to his debility at the present time. #2 lower extremity weakness-MRI was performed today and it was negative for acute CVA, patient refused to undergo an MRA of the head and neck #3 hyponatremia-etiology unclear #4 acute anemia-CBC will be repeated tomorrow, patient has no signs of gastrointestinal bleeding at this time or other reasons for blood loss. Total clinical time spent by myself addressing the patient's medical issues, reviewing all of the data, and collaborating with patient's care team: 35 minutes Charges/Coding Visit Charges Inpatient E&M: 51740 Subs Hosp L2 NIHSS NIHSS Nursing Documentation NIHSS Nursing Documentation: NIHSS: Ischemic Stroke/TIA Start: 11/15/24 15:09 Text: For PCU Patients: NIH and Neuro Check every 4 Status: Complete hours, PRN and with change in RN caregiver. Freq: [id number] Protocol: Activity Type Activity Date Activity User E-sign Co-sign Detail Recorded Client Recorded Date Recorded By Document 11/16/24 08:25 KARLA 0 11/16/24 08:33 KARLA 11/16/24 08:25 NIH Stroke Scale [NIHSS] A score of 0 is normal or asymptomatic . Total possible score is 42. Inpatient: RN or Physician to activate a stroke alert for onset of new stroke symptoms or with NIHSS increase >/= 3 points. Following change in neurological status, NIHSS will be performed per physician order or more frequently PRN. -1a. Level of Consciousness 0 - Alert; keenly responsive -1b. LOC Questions 0 - Answers BOTH questions correctly -1c. LOC Commands 0 - Performs BOTH tasks correctly -2. Best Gaze 0 - Normal -3. Visual 0 - No visual loss -4. Facial Palsy 0 - Normal symmetrical movements -5a. Left Arm 0 - No drift; arm holds 90 ( or 45) degrees for full 10 seconds -5b. Right Arm 0 - No drift; arm holds 90 ( or 45) degrees for full 10 seconds -6a. Left Leg 3 - No effort against gravity ; leg falls to bed immediately -6b. Right Leg 2 - Some effort against gravity; -7. Limb Ataxia UN - Amputation or joint fusion, explain -'UN' explanation B/L hip pain, attempted to assist with heel/[place] and pt unable to do -8. Sensory 0 - Normal; no sensory loss -9. Best Language 0 - No aphasia; normal -10. Dysarthria 0 - Normal -11. Extinction and Inattention 0 - No abnormality -Total 5 Query Text:A score of 0 is normal or asymptomatic. Total possible score is 42 . ED: Notify Physician for NIHSS increase by > / = 3 points. Inpatient: RN or Physician to activate a stroke alert for NIHSS increase of > / = 3 points. Coma Scale [Assess] -Eye Opening Spontaneous -Motor Obeys Commands -Verbal Oriented [Total] -Coma Scale Total 15
--- NOTE | 2024-11-17 18:29 | CASEMGMT ---
Social Work - ADVANCE DIRECTIVE Followed up with patient regarding reported interest in completing Advance Directives. Patient expresses wish to complete both the healthcare power of orthodontic technician assistant and living will this date. Expresses wish to name daughter Haily Garcia as the POC. Patient discussed consideration of adding an alternate, Haily Haynes, whom the patient has known for the last 5 years and has been living with the patient, reportedly there to help patient with ensuring his daily needs are being met. Patient reports Haily Haynes is like a daughter or granddaughter to the patient, and there is some tension as the patient's daughter is uncertain about Haily Haynes. 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 Patient reports to feel safe with Haily Haynes, and discussed that is considering having Haily Haynes become financial POC to help with bill paying and such. Also discussed giving this responsibility over to a hired orthodontic technician assistant. Patient reports due to daughter Haily living in [place], and caring for patient's first (the daughter's mother), does not feel his daughter is the best person to take on the financial responsibilities of yet another person. After much consideration, patient came to his own decision to only have daughter on the POAHC, as is not sure friend Haily is quite up to the responsibility of making health care decisions. Patient called his daughter on the phone, placing the daughter on speaker. Daughter confirms willingness to become the POC and that has been asking patient to do this for some time. Daughter reports concern for patient's overall health, worried patient's PSA is abnormal, and that patient may have cancer. Daughter shared concern that patient is not always forthcoming about his medical status. Daughter would like to speak with provider tomorrow, if possible, for an update. Daughter also mentioned that if patient needs to go to a SNF at discharge, the [facility] is closer than a home in [place], and the patient liked this facility in the past. During phone call, Haily attempted to speak and patient would at time speak over the daughter. Patient reports that can be a difficult person and sometimes he and his daughter go head to head, though patient trusts his daughter and knows his daughter is willing ot help with healthcare decisions if needed. Patient clearly stated while his daughter was on the phone, that would not want CPR, nor any type of intubation or ventilation if the need arose, even today. Daughter expressed support if this was patient's wish. During SW visit, patient talked of not wanting to live in a fci, and wanted these instructions placed into his advance directive documents. Would be okay with short term SNF for rehab, and assisted living for skilled nursing. Patient shared that was placed at [facility] in the past and had to fight to get out of there. Reports the [facility] is nice, but costs 10k a month. Patient also shared that he is in a good place financially to pay for assisted living if needed. Supportive listening and reflection offered as patient talked of family, supports, aging, and interests (likes to read the Bible on his spare time, and wants to donate money to a mission in [place]). Advance Directive completed. Copy made for chart. Copy for HIM to scan. Securely emailed, with patient's expressed permission and to confirmed email ( ) a copy to the patient's daughter. Copy and original in envelope for the patient. Demographics updated to reflect the daughter's contact information and [facility]. -MAGDI Santiago
[2024-11-18 04:13] VITALS: BP 146/75; PULSE 109; RESP 18; TEMP 36.6; O2SAT 100; BMI 27.3
--- NOTE | 2024-11-18 08:53 | CASEMGMT ---
Discharge Planning Updates sent to [facility]. Precert remains pending. Janet Dunn DC Planning Asst.
[2024-11-18] MEDS: Lidocaine 5% Patch 1 PATCH TOPICAL (09:15)
[2024-11-18 09:18] VITALS: BP 153/77; PULSE 57; RESP 16; TEMP 36.3; O2SAT 96
--- NOTE | 2024-11-18 11:40 | CT_ITS ---
EXAM: CT Abdomen and Pelvis With Intravenous Contrast CLINICAL INDICATION: POSITIVE BLOOD CULTURE, RULE OUT ABSCESS TECHNIQUE: Axial computed tomography images of the abdomen and pelvis with intravenous contrast. This CT exam was performed using one or more of the following dose reduction techniques: automated exposure control, adjustment of the mA and/or kV according to patient size, and/or use of iterative reconstruction technique. COMPARISON: No relevant prior studies available. FINDINGS: LUNG BASES: See below. PLEURAL SPACE: Bilateral pleural effusion with compressive atelectasis. MEDIASTINUM: Moderate esophageal hiatal hernia. ABDOMEN: LIVER: Hepatomegaly with fatty infiltration. GALLBLADDER AND BILE DUCTS: Unremarkable. No calcified stones. No ductal dilation. PANCREAS: Unremarkable. No mass. No ductal dilation. SPLEEN: Unremarkable. No splenomegaly. ADRENALS: Unremarkable. No mass. KIDNEYS AND URETERS: 8.4 cm simple right renal cyst. No hydronephrosis. STOMACH AND BOWEL: Constipation with suggestion of fecal impaction of the rectum. Fecal retention in the colon consistent with constipation. No obstruction. No mucosal thickening. PELVIS: APPENDIX: No findings to suggest acute appendicitis. BLADDER: Unremarkable. No mass. REPRODUCTIVE: Unremarkable as visualized. ABDOMEN and PELVIS: INTRAPERITONEAL SPACE: Unremarkable. No free air. No significant fluid collection. 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 No acute fracture. No dislocation. SOFT TISSUES: Unremarkable. VASCULATURE: Scattered calcified atherosclerotic disease of aorta. No abdominal aortic aneurysm. LYMPH NODES: Unremarkable. No enlarged lymph nodes. CT/Abdomen/Pelvis W IV Cont ONLY IMPRESSION: 1. Constipation with suggestion of fecal impaction of the rectum. 2. Moderate esophageal hiatal hernia. 3. Hepatomegaly with fatty infiltration. 4. Fecal retention in the colon consistent with constipation. 5. 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 6. Bilateral pleural effusion with compressive atelectasis. 7. 8.4 cm simple right renal cyst. [facility]
--- NOTE | 2024-11-18 13:56 | CASEMGMT ---
Discharge Planning [facility] has obtained auth to admit. SW updated. Janet Dunn DC Planning Asst.
[2024-11-18 15:11] VITALS: BP 134/60; PULSE 65; RESP 18; TEMP 36.5; O2SAT 99
--- NOTE | 2024-11-18 15:11 | TREXTCAR_ITS ---
Diet Diet Order/Speech Therapy: INPATIENT Hospital Diet / Speech Therapy Order(s) 11/15/24 15:09 Diet: Cardiac - Heart Healthy Food consistency:: Regular Liquid Consistency:: Regular/Thin Type of Dietary Supplement:: Ensure Plus High Protein Diet Comments: 120ml EPHP with meals Routine Orders/Code Status Code Status: DNRCC-A (No intubation) DC O2, CPAP, BIPAP needs Home O2 Discharge instructions: No Wound(s) Left Elbow: Wound Type: Abrasion Left posterior heel: Wound Type: Abrasion Therapies Weight Bearing: Full weight bearing Physical Therapy: Eval and Treat Occupational Therapy: Eval and Treat Problem/Diagnosis (1) Generalized weakness: Status: Acute Code(s): R53.1 - Weakness Plan 1. Generalized weakness-secondary to deconditioning and advanced age, PT OT will continue to see the patient, he will need temporary placement in a [facility] facility due to his debility at the present time. #2 lower extremity weakness-MRI was performed today and it was negative for acute CVA, patient refused to undergo an MRA of the head and neck #3 hyponatremia-etiology unclear we will place the patient on sodium chloride when he is discharged to penitentiary facility. #4 acute anemia-etiology unclear, patient's hemoglobin appears to be stable at this time #5 bacteremia with strep anginosus-patient underwent an abdominal and pelvic CT today to rule out any abscess, none was seen, patient did have a large amount of stool however. I have elected to place the patient on 7 days of Keflex for treatment of the bacteremia. #6 severe aortic stenosis-patient will need an appointment in the near future with a TAVR physician for valve replacement Total clinical time spent by myself addressing the patient's medical issues, reviewing all of the data, and collaborating with patient's care team: 35 minutes Allergies/Procedures Done in Hospital Allergies Opioids - Morphine Analogues Allergy (Intermediate, Verified 11/15/24 12:14) Other VIOLENT SHAKES Procedures: 2-D Echocardiogram Type of Care/Length of Stay Estimated LOS: Convalescent Care Less Than 30 days Type of Care Needed: Skilled Rehab Potential: Good Prognosis: Good Additional Orders/Day of Discharge H&P will serve as current which was dated: 11/15/24 Day of Discharge: 11/18/24 Dietary and Speech Recommendations Dietitian Recommendations/Changes: Continue cardiac diet. Will order 120ml EPHP TID with medpass. Will monitor weight trends. Discharge Plan Admission Admit Date/Time: 11/15/24 14:42 Primary Reason for Your Visit: Generalized weakness Attending Provider: Luca Yeh Primary Care Provider: Guilherme Sanchez Consulting Providers: Shannan Patterson Instructions Additional Instructions / Restrictions: Patient will need a follow-up appointment after discharge from the [facility] with his family physician, he will need to be set up to see a TAVR physician due to his severe aortic stenosis. Discharge Orders/Prescriptions Prescriptions: New acetaminophen 325 mg Tablet 650 mg PO Q6H PRN PRN (Reason: Pain 1-10 Or Fever >100.7) Qty: 0 0RF sennosides-docusate sodium [Stimulant Laxative Plus] 8.6-50 mg Tablet 2 tab PO BID PRN PRN (Reason: Constipation) Qty: 0 0RF sodium chloride 1,000 mg Tablet,Soluble 1,000 mg PO TID Qty: 0 0RF Referrals / Follow Up: Guilherme Sanchez MD [Primary Care Provider] - See Referral Note (A week after discharge from the [facility], you will need to be set up with an appointment to see a TAVR physician regarding your aortic stenosis) NOT,DEFINED [Non-Staff] - Disposition Disposition (needs filled in before D/C Order can be placed): Care Home Facility
[2024-11-18] MEDS: Senna/Docusate Sodium 1 Tablet 2 TABLET PO (15:24)
--- NOTE | 2024-11-18 15:42 | PCM.DC.SUM ---
Providers Date of Admission: 11/15/24 Date of Discharge: 11/18/24 Primary Care Physician: Dr. Guilherme Sanchez MD Reason For Visit: CVA R/O Diagnosis Discharge Diagnosis (1) Generalized weakness: Status: Acute Code(s): R53.1 - Weakness Plan 1. Generalized weakness-secondary to deconditioning and advanced age, PT OT will continue to see the patient, he will need temporary placement in a correction facility due to his debility at the present time. #2 lower extremity weakness-MRI was performed today and it was negative for acute CVA, patient refused to undergo an MRA of the head and neck #3 hyponatremia-etiology unclear we will place the patient on sodium chloride when he is discharged to correction facility. #4 acute anemia-etiology unclear, patient's hemoglobin appears to be stable at this time #5 bacteremia with strep anginosus-patient underwent an abdominal and pelvic CT today to rule out any abscess, none was seen, patient did have a large amount of stool however. I have elected to place the patient on 7 days of Keflex for treatment of the bacteremia. #6 severe aortic stenosis-patient will need an appointment in the near future with a TAVR physician for valve replacement Total clinical time spent by myself addressing the patient's medical issues, reviewing all of the data, and collaborating with patient's care team: 35 minutes Medications at Discharge Home Medications acetaminophen 325 mg tablet 650 mg (2 x 325 mg) PO Q6H PRN PRN Pain 1-10 Or Fever >100.7 #0 tabs 11/18/24 cephalexin 500 mg tablet 500 mg PO TID #21 tabs 11/18/24 sennosides 8.6 mg-docusate sodium 50 mg tablet (Stimulant Laxative Plus) 2 tab PO BID PRN PRN Constipation #0 tabs 11/18/24 sodium chloride 1,000 mg soluble tablet 1,000 mg PO TID #0 tabs 11/18/24 Hospital Course Operations None Procedures None Summary of Care Provided Minutes Spent on Discharge: 31 Hospital Course: This 84-year-old white male was seen in the emergency room at [facility] with chief complaint of generalized weakness, patient lives alone in his apartment normally he has a home health aide but she has been gone for several days. Workup in the emergency room included a CBC which was abnormal for hemoglobin of 12.5, chemistry panel was abnormal for a sodium of 126, and urinalysis was unremarkable. Patient was admitted to PCU for generalized weakness and hyponatremia, he was seen by PT and OT and it was recommended that he go to a correction facility for short-term rehab services. On 11/18/2024, patient was seen and examined:alert, oriented x3, no apparent distress and average body habitus General Appearance: cooperative, well kempt and well developed Orientation / Consciousness: awake, oriented to person, oriented to place and oriented to time HEENT normocephalic and moist oral mucous membranes Eyes PERRL, EOMs intact bilaterally and conjunctivae normal Neck supple, no JVD, thyroid normal and no carotid bruits General: trachea midline Resp normal respiratory effort, no retractions, no use of accessory muscles and clear to auscultation bilaterally Auscultation: Negative for rales, rhonchi or wheezes Cardio regular rate, regular rhythm, S1 normal heart sound, S2 normal heart sound, no murmurs, no rub and no gallops GI normal to inspection, nondistended, normoactive bowel sounds, soft to palpation, non-tender and non-distended Extremity no clubbing, cyanosis or edema Skin no rashes or lesions noted General Skin Exam: no breakdown Neuro oriented x3, CN's II-XII intact bilaterally, no focal motor deficits and no sensory deficits noted Sensorium / Orientation: awake and alert Speech: speech normal Psych affect normal On 11/18/2024, patient was transferred to [facility] in stable condition for inpatient skilled care. Weight / BMI Weight Weight: 96.6 kg Body Mass Index (BMI) 27.3 ABG / Lab / Microbiology Data 11/17/24 09:08 11/17/24 09:08 Microbiology: Microbiology 11/15/24 20:00 Blood Culture (Wb) - Anticubital Right Bacteria Detection (PCR) - Final Strep anginosus 11/15/24 20:00 Blood Culture (Wb) - Anticubital Right Blood Culture - Final Strep anginosus Radiography Diagnostic Testing: Radiology Impression Abdomen/Pelvis CT 11/18/24 11:40 IMPRESSION: 1. Constipation with suggestion of fecal impaction of the rectum. 2. Moderate esophageal hiatal hernia. 3. Hepatomegaly with fatty infiltration. 4. Fecal retention in the colon consistent with constipation. 5. 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 6. Bilateral pleural effusion with compressive atelectasis. 7. 8.4 cm simple right renal cyst. Reading Location: [facility] D/C Instructions DC O2, CPAP, BIPAP Needs Home O2 Discharge instructions: No Meaningful Use Info Meaningful Use Meaningful Use Diagnoses (Choose all that apply): None applicable Discharge Plan Admission Admit Date/Time: 11/15/24 14:42 Primary Reason for Your Visit: Generalized weakness Attending Provider: Luca Yeh Primary Care Provider: Guilherme Sanchez Consulting Providers: Shannan Patterson Instructions Additional Instructions / Restrictions: Patient will need a follow-up appointment after discharge from the residential with his family physician, he will need to be set up to see a TAVR physician due to his severe aortic stenosis. Discharge Orders/Prescriptions Prescriptions: New acetaminophen 325 mg Tablet 650 mg PO Q6H PRN PRN (Reason: Pain 1-10 Or Fever >100.7) Qty: 0 0RF sennosides-docusate sodium [Stimulant Laxative Plus] 8.6-50 mg Tablet 2 tab PO BID PRN PRN (Reason: Constipation) Qty: 0 0RF sodium chloride 1,000 mg Tablet,Soluble 1,000 mg PO TID Qty: 0 0RF cephalexin 500 mg tablet 500 mg PO TID Qty: 21 0RF Rx Instructions: 1- 3 times a day for 21 doses-start tonight 11/18/2024 Referrals / Follow Up: Guilherme Sanchez MD [Primary Care Provider] - See Referral Note (A week after discharge from the residential, you will need to be set up with an appointment to see a TAVR physician regarding your aortic stenosis) NOT,DEFINED [Non-Staff] - Disposition Disposition (needs filled in before D/C Order can be placed): [facility] Facility Charges/Coding Visit Charges Inpatient E&M: 01720 Disch Hosp >30min
--- NOTE | 2024-11-18 15:49 | CASEMGMT ---
Social Work Precert has been obtained for admission to [facility]. Physician notified, and pt is ready for discharge today. 7000 hospital exemption form completed in [place]. [place] city carrier assistant notified and to complete discharge. Disposition: [facility], skilled level of care under hospital exemption MELANIE Henderson
[2024-11-18] MEDS: Magnesium Citrate 300 ML PO (16:19)
--- NOTE | 2024-11-18 16:19 | CASEMGMT ---
Discharge Planning Discharge orders, signed med list, and transport time sent to [facility]. Physicians will transport pt by wheelchair at 5:30p. Nursing, SW, pt, and his daughter (Haily) updated. Janet Dunn DC Planning Asst.
[2024-11-18 17:00] VITALS: BMI 27.3
--- NOTE | 2024-11-18 17:34 | NURSING ---
report called to Isabel at [facility]
--- NOTE | 2024-11-20 10:20 | CASEMGMT ---
Message received from [facility] on 11/19 that pt is requesting to leave the facility and will sign out AMA. MELANIE Walker
== END 2024-11-18 18:06 | disposition skilled nursing facility (03) | DRG 884 ==
LOC: ED 14:05 → PCU 14:46
PROVIDERS: Physician Assistant; Admitting Provider Internal Medicine; Emergency Provider Emergency Medicine; PCP Student in an Organized Health Care Education/Training Program; Visit Provider Internal Medicine
DX: R54 Age-related physical debility (principal); R78.81 Bacteremia; E87.1 Hypo-osmolality and hyponatremia; Z66 Do not resuscitate; D64.9 Anemia, unspecified; I10 Essential (primary) hypertension; I35.0 Nonrheumatic aortic (valve) stenosis; M54.50 Low back pain, unspecified; G89.29 Other chronic pain; L03.031 Cellulitis of right toe; Z87.891 Personal history of nicotine dependence
CPT/HCPCS: 36415; 70450; 70551; 71045; 73521; 74177; 80048; 80061; 81001; 82436; 82533; 82570; 83036; 83735; 83880; 83930; 83935; 84133; 84300; 84443; 84540; 85025; 85610; 87040; 87149; 87186; 93306; 94762; 97116; 97162; 97166; 97530; 97802; 99285; Q9957; Q9967; A4216; J0295

== ENCOUNTER 2024-11-28 23:56 | Emergency (ER) | payer MEDICARE, SELFPAY ==
[2024-11-28 23:57] VITALS: BP 129/65; PULSE 76; RESP 18; TEMP 37.3; O2SAT 98; BMI 26.6
[2024-11-29] VITALS: BP 115/69; PULSE 76; RESP 18; TEMP 37.3; O2SAT 98
--- NOTE | 2024-11-29 00:18 | EDS_ITS ---
HPI History of Present Illness Chief Complaint: Other, Pain/Inj Detail of Chief Complaint: sacral wounds Informant: patient Narrative Narrative: 84-year-old male who has been generally weak and after walking presenting to the ER around midnight for evaluation of wounds on his buttocks that have been there for maybe a little over a week according to him. He denies any fevers chills significant discharge or bleeding from them. He was admitted to [facility] for rehab, but he hated it there and signed out [facility] after 1 day and has a live-in aide at home that has been helping him. He states for the most part, he is lying in bed. He can take some steps with a walker if he has help from his aide. He denies any new symptoms or feeling more poorly than he has in the past week, is just concerned about his sores because they hurt and he has been doing ointment and dressings on them but they do not seem to be healing. [facility] Medical History Weakness of lower extremity Acute hyponatremia Generalized weakness HTN (hypertension) Home Medications ?Medication ?Instructions ?Recorded ?Last Taken ?Type acetaminophen 325 mg tablet 650 mg (2 x 325 mg) PO Q6H PRN PRN 11/18/24 Unknown Rx Pain 1-10 Or Fever >100.7 #0 tabs cephalexin 500 mg tablet 500 mg PO TID #21 tabs 11/18 Unknown Rx sennosides 8.6 mg-docusate sodium 2 tab PO BID PRN PRN Constipation 11/18/24 Unknown Rx 50 mg tablet (Stimulant Laxative #0 tabs Plus) sodium chloride 1,000 mg soluble 1,000 mg PO TID #0 ta bs 11/18/24 Unknown Rx tablet Allergy/AdvReac Type Severity Reaction Status Date / Time Opioids - Morphine Analogues Allergy Intermediate Other Verified 11/29/24 00:00 Surgical History History of tonsillectomy H/O bilateral hip replacements Social History household members: caregiver housing: house Smoking Status: Former smoker ROS ROS ED Constitutional Constitutional ED: Denies chills or fever(s) Eyes Eyes: Denies change in vision or diplopia ENT ENT ED: Denies rhinorrhea or sore throat Cardiovascular Cardiovascular: Denies chest pain or palpitations Respiratory/Chest Respiratory/Chest: Denies cough or dyspnea Gastrointestinal Gastrointestinal: Denies abdominal pain, diarrhea, nausea or vomiting Genitourinary Genitourinary ED: Denies dysuria or hematuria Musculoskeletal Musculoskeletal: Denies back pain or neck pain Integumentary Reports as per HPI and wounds; Denies abscess or rash Neurologic Neurologic: Denies headache(s), paresthesias or weakness Psychiatric Psychiatric: Denies anxiety or suicidal thoughts EXAM Physical Exam Const Vital Signs: 11/28/24 23:57 11/29/24 00:00 Temperature 99.2 F H 99.2 F H Temperature Source Oral Oral Pulse Rate 76 76 Respiratory Rate 18 18 Blood Pressure 129/65 H 115/69 Blood Pressure Mean 86 84 Pulse Ox 98 98 Oxygen Delivery Method Room Air Room Air Positive well nourished and well developed General Appearance ED: well developed and NAD HEENT Reports moist mucous membranes normocephalic and atraumatic Eyes PERRL and EOMs intact bilaterally Neck full ROM and supple Resp normal respiratory effort GI non-tender and non-distended Auscultation: normoactive bowel sounds Palpation: soft Extremity normal to inspection General Extremety ED: Negative for edema, pulses abnormal or tenderness General Extremity: Negative for edema or pulses abnormal Neuro oriented x3, CN's II-XII intact bilaterally and no sensory deficits noted Sensorium / Orientation: awake and alert Motor Exam: strength 5/5 throughout Skin no rashes or lesions noted Skin Narrative: Patient has 2 small roughly 2 cm each early stage II decubitus ulcers separate from each other in the area of the buttocks, there are some nonblanching erythema but no tenderness away from the ulcerations himself. They do not appear to be infected. There is no midline tenderness. There is no abscess or fullness or fluctuance anywhere and there is no active discharge or bleeding. MDM MDM MDM Narrative Medical decision making narrative: In my judgment these do not appear to be infected. I do not think he needs antibiotics nor does he need testing to search for a deep space tissue involvement. I think he just needs better wound care, as I discussed with the patient they appear to be clean and well cared for, but if he is still putting pressure on them, they are going to take longer to go away and get better. I referred him to the wound center so they can further evaluate but he is here at midnight and there is no one else to see him in the hospital at this time. I am having our nurses place some bulky partial pressure relieving dressings on them with some antibiotic ointment he is comfortable with that plan. Discharge Plan Triage Chief Complaint: Other, Pain/Inj ED Provider: Haris Elise Dx/Rx/DC Orders Clinical Impression: Decubitus ulcer of sacral region, stage 2 Instructions: ED Pressure Injury, ED Wound Care Prescriptions: No Action acetaminophen 325 mg Tablet 650 mg PO Q6H PRN PRN (Reason: Pain 1-10 Or Fever >100.7) Qty: 0 0RF sennosides-docusate sodium [Stimulant Laxative Plus] 8.6-50 mg Tablet 2 tab PO BID PRN PRN (Reason: Constipation) Qty: 0 0RF sodium chloride 1,000 mg Tablet,Soluble 1,000 mg PO TID Qty: 0 0RF cephalexin 500 mg tablet 500 mg PO TID Qty: 21 0RF Rx Instructions: 1- 3 times a day for 21 doses-start tonight 11/18/2024 Primary Care Provider: Guilherme Sanchez Referrals: Wound Health [Outside] - As soon as possible (call for appt: [phone]) Guilherme Sanchez MD [Primary Care Provider] - 1 Week Print Language: [place] Disposition Disposition: Home, Self Care
[2024-11-29 00:41] VITALS: BP 132/87; PULSE 73; RESP 18; TEMP 37.3; O2SAT 99
== END 2024-11-29 00:57 | disposition home or self-care (01) ==
PROVIDERS: Emergency Provider Emergency Medicine; PCP Student in an Organized Health Care Education/Training Program; Visit Provider Emergency Medicine
DX: L89.152 Pressure ulcer of sacral region, stage 2 (principal); I10 Essential (primary) hypertension; Z87.891 Personal history of nicotine dependence
CPT/HCPCS: 99285

== ENCOUNTER 2024-12-04 10:50 | Inpatient (IN) | payer MEDICARE, SELFPAY ==
[2024-12-04] VITALS (32 sets, daily range): BP systolic 71–134; BP diastolic 47–70; PULSE 54–93; RESP 10–32; TEMP 36.1–37.6; O2SAT 4–100; BMI 28.4; BMI 26.8
--- NOTE | 2024-12-04 11:07 | EKG12_ITS ---
Test Reason : WEAKNESS Blood Pressure : */* mmHG Vent. Rate : 61 BPM Atrial Rate : 61 BPM P-R Int : 194 ms QRS Dur : 102 ms QT Int : 430 ms P-R-T Axes : 14 21 27 degrees QTcB Int : 432 ms Normal sinus rhythm Normal ECG Confirmed by PEACE THORNTON, LILIAN ([id number]), pictures editor ZANA COOPER ([id number]) on 12/07/2024 8:31:01 AM Referred By: Confirmed By: LILIAN HAND MD
[2024-12-04 11:18] LABS: Hematocrit 26.9 % (40-54); Hemoglobin 8.9 g/dL (13.0-16.5); Immature Granulocytes Count 0.040 X10^3/uL (0.0-0.0); Mean Corp Hgb Conc 33.1 g/dL (32-36); Mean Corpuscular Volume 84.9 fL (80-94); Mean Platelet Vol. 8.6 fl (6.2-12.0); NRBC Flagged by Analyzer 0 % (0-5); POSITIVE DIFFERENTIAL YES; POSITIVE MORPHOLOGY YES; Platelet Count 305 K/mm3 (150-450); RBC Distribution Width CV 14.4 % (11.6-14.6); RBC Distribution Width SD 44.6 fl (35.1-43.9); Red Blood Count 3.17 M/mm3 (4.6-6.2); White Blood Count 6.9 K/mm3 (4.4-11.0)
[2024-12-04] MEDS: 0.9% Normal Saline (1000mL) 1,000 ML 999 ML IV (11:18)
[2024-12-04 11:19] LABS: Differential Indicated SCAN CRITERIA MET
[2024-12-04 11:49] LABS: AST(SGOT) 134 U/L (<=37); Alanine Aminotransfer ALT/SGPT 77 U/L (<=46); Albumin, Serum 2.2 g/dL (3.4-4.8); Alkaline Phosphatase 135 U/L (40-129); Anion Gap 8 (5-15); BUN 18 mg/dL (4-19); BUN/Creat Ratio 25.5 RATIO (10-20); Calcium,Total 8.3 mg/dL (7.6-11.0); Carbon Dioxide 27.8 mmol/L (21.0-32.0); Chloride 92 mmol/L (98-108); Estimated Creatinine Clearance 85.44 ml/min (50-250); Globulin 3.1 g/dL (2.2-4.2); Glucose 118 mg/dL (70-99); Potassium 3.6 mmol/L (3.3-5.1)
[2024-12-04 12:04] LABS: Mucous, Urine 0 SEEN /hpf (<or=2+); Red Blood Cells-Urine 0 SEEN /hpf (0-5); Squamous Epithelial Cells - UA 0 SEEN /hpf (0-5)
[2024-12-04 12:06] LABS: Color, Urine Yellow (Yellow); Glucose, Dipstick Normal (Normal); Ketone-Dipstick Negative (Negative); Leukocyte Esterase-Dipstick Negative /ul (Negative); Nitrite-Dipstick Negative (Negative); Occult Blood-Urine Negative /ul (Negative); Protein-Dipstick 30 mg/dl (Negative); Specific Gravity, Urine 1.010 (1.002-1.030); Urine Bilirubin Dipstick Negative (Negative)
--- NOTE | 2024-12-04 12:40 | EX.ED.DYSGE1 ---
HPI History of Present Illness Chief Complaint: Weakness Narrative Narrative: Patient is a 84-year-old male with past medical history of hyponatremia, hypertension, stage II decubitus ulcer of the sacral region, anemia who presented to the emergency department with with chief complaint of needing evaluation according to his home health aide. According to staff his home health aide called as he had been refusing to eat or drink anything for the last few days and they are concerned about this sending him here. Patient himself has no complaints at this point in time. [facility] Medical History Weakness of lower extremity Acute hyponatremia Generalized weakness HTN (hypertension) Home Medications ?Medication ?Instructions ?Recorded ?Last Taken ?Type acetaminophen 325 mg tablet 650 mg (2 x 325 mg) PO Q6H PRN PRN 11/18/24 Unknown Rx Pain 1-10 Or Fever >100.7 #0 tabs cephalexin 500 mg tablet 500 mg PO TID #21 tabs 11/18/24 Unknown Rx sennosides 8.6 mg-docusate sodium 2 tab PO BID PRN PRN Constipation 11/18/24 Unknown Rx 50 mg tablet (Stimulant Laxative #0 tabs Plus) sodium chloride 1,000 mg soluble 1,000 mg PO TID #0 tabs 11/18/24 Unknown Rx tablet Allergy/AdvReac Type Severity Reaction Status Date / Time Opioids - Morphine Analogues Allergy Intermediate Other Verified 11/29/24 00:00 Surgical History History of tonsillectomy H/O bilateral hip replacements Social History household members: caregiver housing: house Smoking Status: Former smoker ROS ROS ED ROS Narrative Constitutional: Denies fevers, chills, headaches, lightness, dizziness Eyes: Denies double vision blurry vision Cardiovascular: Denies chest pain Respiratory: Denies coughing wheezing shortness of breath Abdomen: Denies abdominal pain nausea vomit diarrhea : Denies any urinary symptoms Neurological: Patient follow commands and that he was at the hospital the year is 2024 Musculoskeletal: Warm, dry, intact no rashes or lesions noted Skin: Warm, dry, intact no new rashes or lesions noted EXAM Physical Exam Narrative Exam Narrative: General: Patient was lying in bed rest comfortably did not appear to be in acute distress Head: Atraumatic, normocephalic Eyes: PERRL bilaterally, EOMI bilateral, no conjunctival injection noted Neck: Soft, supple, trachea midline Cardiovascular: Patient bradycardic with a regular rhythm no murmurs gallops rubs noted Respiratory: Clear to auscultation bilaterally Abdomen: Soft, nondistended, no tenderness to palpation Extremities: +5/5 strength noted in the bilateral upper and lower extremities, radial pulses +2/4 in the bilateral extremities, no pedal edema exam Neurological: Patient following commands knew that he was at the hospital the year is 2024 Skin: Warm, dry, tact no rashes lesions noted Const Vital Signs: 12/04/24 10:52 12/04/24 10:56 12/04/24 12:51 Temperature 97.9 F Temperature Source Oral Pulse Rate 58 L 90 Respiratory Rate 10 L 16 Respiratory Effort Normal Non-Labored Respiratory Pattern Normal Blood Pressure 134/62 H 125/70 H Blood Pressure Mean 86 88 Pulse Ox 100 Oxygen Delivery Method Room Air Room Air 12/04/24 13:43 Temperature Temperature Source Pulse Rate 90 Respiratory Rate 17 Respiratory Effort Respiratory Pattern Blood Pressure 122/70 H Blood Pressure Mean 87 Pulse Ox 97 Oxygen Delivery Method Room Air MDM MDM MDM Narrative Medical decision making narrative: Patient is a 84-year-old male who presents to the emergency department with the chief complaint of not eating or drinking anything for the past few days with decreased appetite. Patient will have a workup performed here on the differential diagnosis includes but not limited to electrolyte abnormality, UTI, ACS. Once workup is obtained reviewed he will be reevaluated. Patient's CBC was reviewed and his white blood count was noted be normal at 6.9 hemoglobin was noted to be 8.9 which is a drop from 11/19/2024, count normal at 305. Patient sodium was low indicating hyponatremia at 128 however this is a chronic issue according to previous blood draws, potassium normal at 3.6, creatinine was noted to be normal at 0.70. Patient's AST and ALT are 134 and 77 respectively. Patient's urinalysis reviewed showed no evidence of infection. Patient CTA pending Did do rectal exam and he was Hemoccult positive. Nursing notified me that he started having coffee-ground emesis as well. Patient is not on any blood thinner medications. Will type and screen him. Patient was given IV Protonix will be placed on Protonix drip. Will discuss case with hospitalist Dr. Ferris Type and screen added on Will discuss the case with hospitalist for admission. Patient is also placed on Protonix drip. Discussed case with hospitalist Dr. Patterson who accept patient for admission. Notified the patient and the family members at bedside they are agreeable this plan all question concerns answered. Lab Data Labs: Laboratory Results - last 24 hr 12/04/24 12/04/24 12/04/24 10:59 11:58 14:26 WBC 6.9 RBC 3.17 L Hgb 8.9 L Hct 26.9 L MCV 84.9 MCH 28.1 MCHC 33.1 RDW Std Deviation 44.6 H RDW Coeff of Bud 14.4 Plt Count 305 MPV 8.6 Immature Gran % (Auto) 0.600 Neut % (Auto) 71.3 H Lymph % (Auto) 7.2 L [place] % (Auto) 17.9 H Eos % (Auto) 2.3 Baso % (Auto) 0.7 Absolute Neuts (auto) 5.0 Absolute Lymphs (auto) 0.50 L Nucleated RBC % 0 Sodium 128 L Potassium 3.6 Chloride 92 L Carbon Dioxide 27.8 Anion Gap 8 BUN 18 Creatinine 0.70 Estim Creat Clear Calc 85.44 Est GFR (MDRD) Non-Af 90 BUN/Creatinine Ratio 25.5 H Glucose 118 H Calcium 8.3 Total Bilirubin 0.59 AST 134 H ALT 77 H Alkaline Phosphatase 135 H Total Protein 5.3 L Albumin 2.2 L Globulin 3.1 Albumin/Globulin Ratio 0.7 L Urine Color Yellow Urine Clarity Sl. Cloudy Urine pH 7.0 Ur Specific [place] 1.010 Urine Protein 30 H Urine Glucose (UA) Normal Urine Ketones Negative Urine Occult Blood Negative Urine Nitrite Negative Urine Bilirubin Negative Urine Urobilinogen 8 H Ur Leukocyte Esterase Negative Urine RBC 0 SEEN Urine WBC 0 SEEN Ur Squamous Epith Cells 0 SEEN Amorphous Sediment 1+ Urine Bacteria 0 SEEN Urine Mucus 0 SEEN Blood Type A POSITIVE Discharge Plan Triage Chief Complaint: Weakness ED Provider: Ravinder Richard Dx/Rx/DC Orders Clinical Impression: Acute upper GI bleed, Coffee ground emesis, History of hypertension, Chronic hyponatremia Prescriptions: No Action acetaminophen 325 mg Tablet 650 mg PO Q6H PRN PRN (Reason: Pain 1-10 Or Fever >100.7) Qty: 0 0RF sennosides-docusate sodium [Stimulant Laxative Plus] 8.6-50 mg Tablet 2 tab PO BID PRN PRN (Reason: Constipation) Qty: 0 0RF sodium chloride 1,000 mg Tablet,Soluble 1,000 mg PO TID Qty: 0 0RF cephalexin 500 mg tablet 500 mg PO TID Qty: 21 0RF Rx Instructions: 1- 3 times a day for 21 doses-start tonight 11/18/2024 Primary Care Provider: Ciro Ku Referrals: Ciro Ku MD [Primary Care Provider] - Print Language: Omani Disposition Disposition: Acute Care Hospital [facility]
--- NOTE | 2024-12-04 14:50 | CT_ITS ---
PROCEDURE: CTA ABD/PELVIS W/WO CONTRAST 12/04/2024 REASON FOR EXAM: UPPER GI BLEED TECHNIQUE: CTA ABD/PELVIS W/WO CONTRAST Multiplanar Sagittal and Coronal images were obtained. 3D and or MIPS post processing was performed CONTRAST: Isovue 370 VOLUME: 100 mL One or more dose reduction techniques were used (e.g., Automated exposure control, adjustment of the mA and/or kV according to patient size, use of iterative reconstruction technique). RADIATION DOSE SUMMARY: CTDlvol: 65 mGy DLP: 1683 mGycm COMPARISON: November 18, 2024 FINDINGS: Aorta: [id number]-jjhccv atherosclerotic plaque without aneurysm. No dissection. Iliac Arteries: No aneurysm or dissection. Atherosclerotic change. Celiac: Atherosclerosis. No flow-limiting stenosis. SMA: Atherosclerosis. No flow-limiting stenosis. CASPER : Patent. Right Renal: Patent. At least 50% narrowing of the origin. Left Renal: Patent. At least 50% narrowing of the origin. Extravascular Findings: Subsegmental atelectasis of the lung bases with scant pleural fluid. The heart is enlarged. Aortic valve has been replaced and there is coronary artery disease. Moderate sliding hiatus hernia with some mild thickening of the distal esophagus. Small bowel is unremarkable. Lcjrsypk-aa-hhmvdo stool burden greatest in the rectal vault. Diverticulosis without diverticulitis. Right adrenal body nodule is 1.7 x 1.2 cm. In the absence of a known primary statistically benign likely an adenoma. No change. Simple cyst right upper pole 8.0 x 8.0 cm. Limited visibility of the bladder but is grossly normal. Prostate is very limited as well. Incidental note is made of some fluid along the course of the course of the right iliopsoas is unchanged. Bilateral hip replacements are present. CT/CTA Abd/Pelvis W/WO Contrast IMPRESSION: 1. No acute aortic abnormality. Advanced atherosclerosis. 2. Mgacpbhf-qp-xcipj sliding hiatus hernia with thickening of the distal esoph aida similar to prior. Correlate with reflux and history of esophagitis. 3. Iqylhzgp-vp-oyqmug stool burden. Most of the stool in the rectal vault. C orrelate with constipation. Diverticulosis without diverticulitis. 4. Simple cysts right kidney. No follow-up required. [place] 1. Right adren al nodule statistically benign in the absence of a known primary. No change. Reading Location: [id number]
--- NOTE | 2024-12-04 15:07 | CM.ED ---
Social Work SW met with patients caregiver, Haily. Haily states that she has been caring for patient in his home. Patient was recently placed at [facility], however chose to sign himself out AMA and return to his home. Haily is patients HPOA, provided copies of HPOA and LW documents which were placed in patients medical record. Haily stated that patient is having a hard time paying his bills as he is getting garnished by the IRS for back taxes. Felicia from [employer] was contacted and met with patient and Haily in the ED. Felicia reports that patient is over income for Medicaid eligibility. Haily is also requesting HH care upon discharge as she feels patient needs therapy in order to be able to safely stay in his home. No further needs identified at this time. Racquel Yoon, DIRECTOR CARDIAC, CHAIRMAN CEO
[2024-12-04] MEDS: Pantoprazole Sodium 40 MG in 0.9% Normal Saline (100mL MB+) 100 ML 300 MG IV (15:10)
--- NOTE | 2024-12-04 15:38 | NURSING ---
Haily, next of kin, notified of gi bleed and being scoped. Also notified Haily, who he lives with of the scope. both verbalized understaning.
--- NOTE | 2024-12-04 16:15 | PCM.PRE.AN2 ---
ASA Classification* ASA Classification ASA Classification: 4 and E Assessment & Plan Anesthesia* Anesthesia Assessment Anesthesia Assessment: Discussed sedation and/or anesthesia options, risks, benefits, and alternatives with patient/parents/legal guardian/POA. Questions invited. The patient/parents/legal guardian/POA seems to understand and agrees to proceed with anesthesia plan. Reviewed the physical assessment, medical history, allergy history and patient home medications list prior to surgery/procedure/anesthetic and documented any changes. Performed airway and anesthesia risk assessments. Anesthesia Type Anesthesia Type: MAC History Source History Obtained from:: Patient and Chart Anesthesia Focused Assessment* Temperature: 99.3 F Pulse Rate: 87 Blood Pressure: 74/51 Respiratory Rate: 31 Pulse Ox: 92 Oxygen Delivery Method: Room Air Airway Assessment Mouth opens: >3 cm Mallampati Score: III Teeth Condition: Chipped/Broken and Missing Neck Range of motion (ROM): Limited ROM Labs Anesthesia Preop lab: CBC WBC 6.9 K/mm3 (4.4-11.0) 12/04/24 10:59 12/04/24 RBC 3.17 M/mm3 (4.6-6.2) L 12/04/24 10:59 12/04/24 Hgb 8.9 g/dL (13.0-16.5) L 12/04/24 10:59 12/04/24 Hct 26.9 % (40-54) L 12/04/24 10:59 12/04/24 Plt Count 305 K/mm3 (150-450) 12/04/24 10:59 12/04/24 CHEMISTRY Potassium 3.6 mmol/L (3.3-5.1) 12/04/24 10:59 12/04/24 Sodium 128 mmol/L (133-145) L 12/04/24 10:59 12/04/24 Magnesium 2.0 mg/dL (1.5-2.2) 11/16/24 05:49 11/16/24 BUN 18 mg/dL (4-19) 12/04/24 10:59 12/04/24 Creatinine 0.70 mg/dL (0.70-1.20) 12/04/24 10:59 12/04/24 Glucose 118 mg/dL (70-99) H 12/04/24 10:59 12/04/24 TSH 0.479 uIU/mL (0.300-4.200) 11/15/24 12:33 11/15/24 COAG PT 15.9 SECONDS (11.7-14.9) H 11/16/24 05:49 11/16/24 Pre-Assessment Diagnosis/Proposed Procedure Planned Operative Procedure(s): EGD Anesthesia History 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 When Was Last Pacemaker Check QUESTION #4 FULL TEXT: You/Your Family Experience fever (hyperthermia) with Anesthesia Any additional information?: Yes Hx Hospitalization: Yes (Last year for hip surgery) Any Problems With Anesthesia: No (Per patient) Cholinesterase deficiency: No You/your family experience fever (hyperthermia) with anesthesia: No --Does patient have Pacemaker or ICD?: No Last Oral Intake Last Oral intake: Last Oral Intake NPO since Meds taken in AM with sips of water? Meds patient instructed to take am of surgery Any additional information?: Yes NPO since: 00:00 PONV PONV - electronic transaction implementer: PONV - electronic transaction implementer Female HX of Motion Sickness HX of N/V After Surgery Non-Smoker Duration of Surgery greater than 60 minutes Number of Risk Factors PONV Score Any additional information?: No Height & Weight Height & Weight: Anesthesia: Height & Weight Height 6 ft 2 in 12/04/24 15:20 Weight: 100.4 kg 12/04/24 15:20 Body Mass Index (BMI) 28.4 12/04/24 15:20 Respiratory Assessment Respiratory Assessment - electronic transaction implementer: Respiratory Tract Infection Hx - electronic transaction implementer Hx Respiratory Tract Infection Any additional information?: Yes Hx Respiratory Tract Infection: No History of Anesthesia Respiratory Infection details: Patient states hes had some recent chest congestion STOP Sleep Apnea STOP Sleep Apnea - electronic transaction implementer: STOP Sleep Apnea - electronic transaction implementer Hx Hypertension No 12/04/24 15:20 Hx Sleep Apnea No: unknown 12/04/24 15:20 CPAP BIPAP Do you snore loudly (louder No 12/04/24 15:20 than talking or can be heard Do you often feel tired/ No 12/04/24 15:20 fatigued/ sleepy during daytime? Has anyone observed you stop No 12/04/24 15:20 breathing during sleep? STOP Results Negative 12/04/24 15:20 QUESTION #5 FULL TEXT : Do you snore loudly (louder than talking or can be heard through closed doors)? Any additional information?: No Tobacco Use History Tobacco Use History - electronic transaction implementer: Tobacco Use History - electronic transaction implementer Tobacco Use Smoking Status Former smoker 12/04/24 10:56 Hx Tobacco Use No 11/15/24 15:30 Years Smoking Packs Smoked per Day Smoking Cessation Date was No - quit smoking greater 12/04/24 10:56 within the last 15 years than 15 years ago Hx Smoking Cessation Date Hx Smoking Cessation No 12/04/24 10:56 Counseling Any additional information?: No Hematologic Medial History Hematologic Hx - electronic transaction implementer: Hematologic 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 Specify any problems Hx of Preganancy in last 3 Months Nurse Filling Out Transfusion & Questions: Date: Time: Patient unable to answer at this time (ie. confused, unrespo Any additional information?: Yes Hx of Blood Transfusion: Yes Hx of Transfusion in last 3 Months: Yes Date of Last Transfusion (if within last 3 months): 12/04/24 Ever experience any problems with transfusion(s)?: No Hx of Preganancy in last 3 Months: N/A /Reproduction History /Reproductive History - electronic transaction implementer: /Reproductive Hx- electronic transaction implementer Hx Now Gestational Age (in weeks): EDC: Hx Hx Para Hx Section SAB Any additional information?: No Active Medications Active Medications: Current Medications Generic Name Dose Route Start Last Admin Trade Name Freq PRN Reason Stop Dose Admin Pantoprazole Sodium 80 mg/ 100 mls @ 10 mls/hr 12/04/24 14:15 Sodium Chloride CONT INF Q10H KALIE PFSH Medical History Weakness of lower extremity Acute hyponatremia Generalized weakness HTN (hypertension) Home Medications ?Medication ?Instructions ?Recorded ?Last Taken ?Type acetaminophen 325 mg tablet 650 mg (2 x 325 mg) PO Q6H PRN PRN 11/18/24 Unknown Rx Pain 1-10 Or Fever >100.7 #0 tabs cephalexin 500 mg tablet 500 mg PO TID #21 tabs 11/18/24 Unknown Rx sennosides 8.6 mg-docusate sodium 2 tab PO BID PRN PRN Constipation 11/18/24 Unknown Rx 50 mg tablet (Stimulant Laxative #0 tabs Plus) sodium chloride 1,000 mg soluble 1,000 mg PO TID #0 tabs 11/18/24 Unknown Rx tablet Allergy/AdvReac Type Severity Reaction Status Date / Time Opioids - Morphine Analogues Allergy Intermediate Other Verified 12/04/24 15:39 Surgical History History of tonsillectomy H/O bilateral hip replacements Social History household members: caregiver housing: house Smoking Status: Former smoker Review of Systems (Anesthesia) ROS Narrative System reviewed and no additional complaints, except as documented.
--- NOTE | 2024-12-04 16:20 | EX.PCM.CON.G ---
HPI Consult Data Date of Consult: 12/04/24 HPI Narrative Reason for Consultation: Coffee-ground emesis HPI Narrative: PHILLY JOEL, is a 84 M who presents presented to the ED with failure to thrive. I was asked to see the patient because he had multiple episodes of coffee-ground emesis in the ED. His biochemical analysis did show significant hyponatremia with a sodium 128. His hemoglobin was 11.9 and dropped down to 8.9 after multiple episodes of coffee-ground emesis. He has a past medical history of hypertension, stage II decubitus ulcer. He does not take any blood thinners. [facility] Medical History Weakness of lower extremity Acute hyponatremia Generalized weakness HTN (hypertension) Home Medications ?Medication ?Instructions ?Recorded ?Last Taken ?Type acetaminophen 325 mg tablet 650 mg (2 x 325 mg) PO Q6H PRN PRN 11/18/24 Unknown Rx Pain 1-10 Or Fever >100.7 #0 tabs cephalexin 500 mg tablet 500 mg PO TID #21 tabs 11/18/24 Unknown Rx sennosides 8.6 mg-docusate sodium 2 tab PO BID PRN PRN Constipation 11/18/24 Unknown Rx 50 mg tablet (Stimulant Laxative #0 tabs Plus) sodium chloride 1,000 mg soluble 1,000 mg PO TID #0 tabs 11/18/24 Unknown Rx tablet Allergy/AdvReac Type Severity Reaction Status Date / Time Opioids - Morphine Analogues Allergy Intermediate Other Verified 12/04/24 15:39 Surgical History History of tonsillectomy H/O bilateral hip replacements Social History household members: caregiver housing: house Smoking Status: Former smoker ROS Constitutional Constitutional: Denies fatigue, fever(s), poor appetite, weight gain or weight loss Gastrointestinal Gastrointestinal: Denies belching, bloating, change in bowel habits, change in stool character, chewing difficulty, coffee ground emesis, constipation, cramping, diarrhea, dyspepsia, dysphagia, early satiety, excessive flatus, fecal incontinence, heartburn, hematemesis, hematochezia, hemorrhoids, loose stools, melena, nausea, odynophagia, rectal bleeding, tenesmus, vomiting or weight changes Physical Exam Const alert, oriented x3, no apparent distress and healthy appearing General Appearance: cooperative GI normal to inspection, nondistended, normoactive bowel sounds, soft to palpation, non-tender and non-distended Percussion: normal to percussion Rectal Exam: deferred Lab / Micro Data 12/04/24 10:59 12/04/24 10:59 Labs: Laboratory Results - last 24 hr 12/04/24 10:59: WBC 6.9, RBC 3.17 L, Hgb 8.9 L, Hct 26.9 L, MCV 84.9, MCH 28.1, MCHC 33.1, RDW Std Deviation 44.6 H, RDW Coeff of Bud 14.4, Plt Count 305, MPV 8.6, Immature Gran % (Auto) 0.600, Neut % (Auto) 71.3 H, Lymph % (Auto) 7.2 L, [place] % (Auto) 17.9 H, Eos % (Auto) 2.3, Baso % (Auto) 0.7, Absolute Neuts (auto) 5.0, Absolute Lymphs (auto) 0.50 L, Nucleated RBC % 0, Sodium 128 L, Potassium 3.6, Chloride 92 L, Carbon Dioxide 27.8, Anion Gap 8, BUN 18, Creatinine 0.70, Estim Creat Clear Calc 85.44, Est GFR (MDRD) Non-Af 90, BUN/Creatinine Ratio 25.5 H, Glucose 118 H, Calcium 8.3, Total Bilirubin 0.59, AST 134 H, ALT 77 H, Alkaline Phosphatase 135 H, Total Protein 5.3 L, Albumin 2.2 L, Globulin 3.1, Albumin/Globulin Ratio 0.7 L 12/04/24 11:58: Urine Color Yellow, Urine Clarity Sl. Cloudy, Urine pH 7.0, Ur Specific [place] 1.010, Urine Protein 30 H, Urine Glucose (UA) Normal, Urine Ketones Negative, Urine Occult Blood Negative, Urine Nitrite Negative, Urine Bilirubin Negative, Urine Urobilinogen 8 H, Ur Leukocyte Esterase Negative, Urine RBC 0 SEEN, Urine WBC 0 SEEN, Ur Squamous Epith Cells 0 SEEN, Amorphous Sediment 1+, Urine Bacteria 0 SEEN, Urine Mucus 0 SEEN 12/04/24 14:26: Blood Type A POSITIVE, Antibody Screen NEGATIVE, Crossmatch See Detail Micro: Microbiology 12/04/24 13:37 Stool Stool Occult Blood (BERENICE) - Final Occult Blood Positive Imaging Radiology Impression Abdomen/Pelvis CTA 12/04/24 14:50 IMPRESSION: 1. No acute aortic abnormality. Advanced atherosclerosis. 2. Stwyvfly-qg-mnxlk sliding hiatus hernia with thickening of the distal esophagus similar to prior. Correlate with reflux and history of esophagitis. 3. Tdozgujr-im-tipjig stool burden. Most of the stool in the rectal vault. Correlate with constipation. Diverticulosis without diverticulitis. 4. Simple cysts right kidney. No follow-up required. Bosniak 1. Right adrenal nodule statistically benign in the absence of a known primary. No change. Reading Location: [id number] Assessment & Plan Assessment/Plan (1) Acute upper GI bleed: PLAN: 84-year-old with upper GI bleed. Agree with PPI drip. Differential diagnosis does include peptic ulcer disease, Paola-Kramer tear, angiodysplasia. She was explained alternatives, risk and benefits include not withstanding bleeding, infection, subsequent perforation, need for surgery . He will have an ASA of 3. Charges/Coding Visit Charges Inpatient E&M: 58190 Init Hosp L2
--- NOTE | 2024-12-04 16:40 | HP.PCM.HOS_ITS ---
HPI - General General Date of Admission: 12/04/24 Date of Service: 12/04/24 Chief Complaint: Abdominal pain and nausea HPI Narrative PHILLY JOEL, is a 84-year-old male history of hypertension and hyponatremia presented [facility] ED 12/04/2024 with weakness and poor p.o. intake for several days. In the ED temp 97.9, pulse rate 58 and blood pressure 134/62, sats 100% on room air. Patient found to have hemoglobin of 8.9 down from 11.8 on 11/19/2024. Sodium of 128 which appears to be baseline, kidney function within normal limits, AST 134, ALT 77, alk phos 135. UA did not appear infectious. Patient had fecal occult positive and in the ED was observed to have episode of coffee-ground emesis. This was discussed with GI, was advised for admission and PPI drip. Patient did develop hypotension and was taken to endoscopy. CTA with moderate to large sliding hiatal hernia with thickening of distal esophagus, moderate to severe stool burden possibly due to constipation. hospitalist contacted admission. Patient evaluated in AC prior to endoscopy, he did report some generalized abdominal pain more so in upper abdomen and some nausea that all started this morning, also some generalized weakness and has not been eating well for 2 to 3 days. Other than that ROS negative [facility] Medical History Weakness of lower extremity Acute hyponatremia Generalized weakness HTN (hypertension) Home Medications ?Medication ?Instructions ?Recorded ?Last Taken ?Type acetaminophen 325 mg tablet 650 mg (2 x 325 mg) PO Q6H PRN PRN 11/18/24 Unknown Rx Pain 1-10 Or Fever >100.7 #0 tabs cephalexin 500 mg tablet 500 mg PO TID #21 tabs 11/18 Unknown Rx sennosides 8.6 mg-docusate sodium 2 tab PO BID PRN PRN Constipation 11/18/24 Unknown Rx 50 mg tablet (Stimulant Laxative #0 tabs Plus) sodium chloride 1,000 mg soluble 1,000 mg PO TID #0 ta bs 11/18/24 Unknown Rx tablet Allergy/AdvReac Type Severity Reaction Status Date / Time Opioids - Morphine Analogues Allergy Intermediate Other Verified 12/04/24 15:39 Surgical History History of tonsillectomy H/O bilateral hip replacements Social History household members: caregiver housing: house Smoking Status: Former smoker ROS ROS Narrative General: Denies fever/chills HENT: Denies headache, denies stuffy nose, denies sore throat EYES: Denies changes in vision Resp: Denies cough, denies shortness of breath Cardiac: Denies chest pain GI: Some constipation, nausea with coffee-ground emesis earlier, abdominal pain more so in upper abdomen but somewhat diffuse : Denies changes in urination Extremity: Denies new swelling MSK: Some generalized weakness Neuro: Denies any numbness/tingling Heme: Denies any bleeding or bruising Skin: Denies rashes Psychiatric: No complaints voiced Vital Signs Vital Signs Vital Signs: 12/04/24 10:52 12/04/24 10:56 12/04/24 12:51 Temperature 97.9 F Temperature Source Oral Pulse Rate 58 L 90 Respiratory Rate 10 L 16 Respiratory Effort Normal Non-Labored Respiratory Pattern Normal Blood Pressure 134/62 H 125/70 H Blood Pressure Mean 86 88 Blood Pressure Source Blood Pressure Position Blood Pressure Location Pulse Ox 100 Oxygen Delivery Method Room Air Room Air Oxygen Flow Rate (L/min) 12/04/24 13:43 12/04/24 15:20 12/04/24 15:26 Temperature 98.9 F 99.4 F H Temperature Source Oral Pulse Rate 90 92 93 Respiratory Rate 17 24 H 26 H Respiratory Effort Respiratory Pattern Blood Pressure 122/70 H 85/57 L 87/57 L Blood Pressure Mean 87 66 67 Blood Pressure Source Monitor Blood Pressure Position Semi-Fowlers Blood Pressure Location Right Arm Pulse Ox 97 95 97 Oxygen Delivery Method Room Air Room Air Oxygen Flow Rate (L/min) 12/04/24 15:49 12/04/24 16:02 12/04/24 16:17 Temperature 99.7 F H 99.3 F H 99.4 F H Temperature Source Temporal Temporal Temporal Pulse Rate 93 87 84 Respiratory Rate 32 H 31 H 30 H Respiratory Effort Respiratory Pattern Blood Pressure 88/57 L 74/51 L 79/53 L Blood Pressure Mean 67 58 61 Blood Pressure Source Monitor Monitor Monitor Blood Pressure Position Semi-Fowlers Supine Semi-Fowlers Blood Pressure Location Left Arm Left Arm Pulse Ox 92 92 99 Oxygen Delivery Method Room Air Room Air Nasal Cannula Oxygen Flow Rate (L/min) 2 12/04/24 16:25 Temperature 99.3 F H Temperature Source Pulse Rate 87 Respiratory Rate 31 H Respiratory Effort Respiratory Pattern Blood Pressure 74/51 L Blood Pressure Mean Blood Pressure Source Blood Pressure Position Blood Pressure Location Pulse Ox 92 Oxygen Delivery Method Room Air Oxygen Flow Rate (L/min) Weight Weight: 100.4 kg Body Mass Index (BMI) 28.4 Physical Exam Narrative General: Alert, oriented, no apparent distress HEENT: Atraumatic, normocephalic Eyes: Anicteric, normal conjunctiva, extraocular movements grossly intact Neck: Supple Respiratory: No overt wheezes or rhonchi, normal respiratory effort Cardiovascular: Regular rate and rhythm GI: Soft, somewhat diffusely tender with voluntary guarding but no rigidity Extremities: 1+ lower extremity edema Musculoskeletal: Moving all extremities Neuro: No overt focal neurological deficits Skin: No rashes appreciated Psych: Cooperative Results Lab / Micro Data 12/04/24 10:59 12/04/24 10:59 Labs: Laboratory Results - last 24 hr 12/04/24 10:59: WBC 6.9, RBC 3.17 L, Hgb 8.9 L, Hct 26.9 L, MCV 84.9, MCH 28.1, MCHC 33.1, RDW Std Deviation 44.6 H, RDW Coeff of Bud 14.4, Plt Count 305, MPV 8.6, Immature Gran % (Auto) 0.600, Neut % (Auto) 71.3 H, Lymph % (Auto) 7.2 L, M [place] % (Auto) 17.9 H, Eos % (Auto) 2.3, Baso % (Auto) 0.7, Absolute Neuts (auto) 5.0, Absolute Lymphs (auto) 0.50 L, Nucleated RBC % 0, Sodium 128 L, Potassium 3.6, Chloride 92 L, Carbon Dioxide 27.8, Anion Gap 8, BUN 18, Creatinine 0.70, Estim Creat Clear Calc 85.44, Est GFR (MDRD) Non-Af 90, BUN/Creatinine Ratio 25.5 H, Glucose 118 H, Calcium 8.3, Total Bilirubin 0.59, AST 134 H, ALT 77 H, A lkaline Phosphatase 135 H, Total Protein 5.3 L, Albumin 2.2 L, Globulin 3.1, A lbumin/Globulin Ratio 0.7 L 12/04/24 11:58: Urine Color Yellow, Urine Clarity Sl. Cloudy, Urine pH 7.0, Ur Specific [place] 1.010, Urine Protein 30 H, Urine Glucose (UA) Normal, Urine Ketones Negative, Urine Occult Blood Negative, Urine Nitrite Negative, Urine Bilirubin Negative, Urine Urobilinogen 8 H, Ur Leukocyte Esterase Negative, Urine RBC 0 SEEN, Urine WBC 0 SEEN, Ur Squamous Epith Cells 0 SEEN, Amorphous Sediment 1+, Urine Bacteria 0 SEEN, Urine Mucus 0 SEEN 12/04/24 14:26: Blood Type A POSITIVE, Antibody Screen NEGATIVE, Crossmatch See Detail Micro: Microbiology 12/04/24 13:37 Stool Stool Occult Blood (BERENICE) - Final Occult Blood Positive Imaging Radiology Impression Abdomen/Pelvis CTA 12/04/24 14:50 IMPRESSION: 1. No acute aortic abnormality. Advanced atherosclerosis. 2. Mbujzuzb-kh-zgnpi sliding hiatus hernia with thickening of the distal esophagus similar to prior. Correlate with reflux and history of esophagitis. 3. Swpejpsx-or-rlrpkq stool burden. Most of the stool in the rectal vault. Correlate with constipation. Diverticulosis without diverticulitis. 4. Simple cysts right kidney. No follow-up required. Bosniak 1. Right adrenal nodule statistically benign in the absence of a known primary. No change. Reading Location: [facility] Assessment & Plan Assessment/Plan (1) Acute upper GI bleed: PLAN: Plan # Concern for upper GI bleed - Hemoglobin on 11/19 was 11.8 and was down to 8.9 - Patient with coffee-ground emesis in the ED - Also fecal occult positive - Patient typed and screened - Continue IV PPI - Trend H&H - GI consult - BP down trended, patient to undergo endoscopy # Chronic hyponatremia -Sodium of 128 -Appears to be baseline -Continue home salt tablets #DVT ppx: SCDs Shannan Patterson MD Charges/Coding Visit Charges Inpatient E&M: 51715 Init Hosp L2
--- NOTE | 2024-12-04 16:50 | PCM.POST.ANE ---
Anesthesia: Postop Eval I Current Vital Signs Temperature: 99 F Pulse Rate: 78 Blood Pressure: 85/50 Respiratory Rate: 16 Pulse Ox: 97 Assessment Airway patent: Yes Spontaneous unlabored respirations: Yes nausea: No Vomiting: No Anesthesia Complication: No Fluid Hydration Crystalloid volume administer (ml): 200 Total IV fluid infused: 200 Progress Note Anesthesia document: Postop Eval 1 completed: Yes
--- NOTE | 2024-12-04 16:52 | OP.EGD_ITS ---
Patient Name: Patrice Garcia Procedure Date: 12/04/2024 3:23 PM Date of : 1940 Age: 84 Procedure: Upper GI endoscopy Indications: Acute post hemorrhagic anemia, Iron deficiency anemia, Coffee-ground emesis, Active gastrointestinal bleeding Providers: Randall Ferris DO Medicines: Monitored Anesthesia Care Patient Profile: This is an 84 year old male. Refer to note in patient chart for documentation of history and physical. Patient has symptoms of acute vomiting. Complications: No immediate complications. Procedure: Pre-Anesthesia Assessment: - Prior to the procedure, a History and Physical was performed, and patient medications and allergies were reviewed. The patient is competent. The risks and benefits of the procedure and the sedation options and risks were discussed with the patient. All questions were answered and informed consent was obtained. Patient identification and proposed procedure were verified by the physician in the pre-procedure area. Mental Status Examination: alert and oriented. Airway Examination: normal oropharyngeal airway and neck mobility. Respiratory Examination: clear to auscultation. CV Examination: normal. Prophylactic Antibiotics: The patient does not require prophylactic antibiotics. Prior Anticoagulants: The patient has taken no anticoagulant or antiplatelet agents except for aspirin. ASA Grade Assessment: II - A patient with mild systemic disease. After reviewing the risks and benefits, the patient was deemed in satisfactory condition to undergo the procedure. The anesthesia plan was to use monitored anesthesia care (MAC). Immediately prior to administration of medications, the patient was re-assessed for adequacy to receive sedatives. The heart rate, respiratory rate, oxygen saturations, blood pressure, adequacy of pulmonary ventilation, and response to care were monitored throughout the procedure. The physical status of the patient was re-assessed after the procedure. After obtaining informed consent, the endoscope was passed under direct vision. Throughout the procedure, the patient's blood pressure, pulse, and oxygen saturations were monitored continuously. The gastroscope was introduced through the mouth, and advanced to the fourth part of the duodenum. Small bowel enteroscopy was deemed necessary. The upper GI endoscopy was accomplished without difficulty. The patient tolerated the procedure well. Scope In: 4:33:31 PM Scope Out: 4:39:02 PM Total Procedure Duration Time 0 hours 5 minutes 31 seconds Findings: LA Grade D (one or more mucosal breaks involving at least 75% of esophageal circumference) esophagitis with bleeding was found 34 to 39 cm from the incisors. Coagulation for hemostasis using heater probe was successful. Estimated blood loss was minimal. A 10 mm bleeding Paola-Kramer tear with stigmata of recent bleeding was found. Coagulation for hemostasis using heater probe was successful. Estimated blood loss was minimal. Hematin (altered blood/moxrko-rjopox-dnnb material) was found in the stomach. No gross lesions were noted in the entire examined duodenum. Impression: - LA Grade D erosive esophagitis with bleeding. Treated with a heater probe. - Paola-Kramer tear. Treated with a heater probe. - Hematin (altered blood/omqpnr-dhpmuf-nbgf material) in the stomach. - No gross lesions in the entire examined duodenum. - No specimens collected. Recommendation: - [facility]. - Advance diet as tolerated. - Continue present medications. - Use Protonix (pantoprazole) 40 mg PO BID. - Use sucralfate tablets 1 gram PO QID for 2 months. Procedure Code(s): --- Professional --- 74820, Small intestinal endoscopy, enteroscopy beyond second portion of duodenum, not including ileum; with control of bleeding (eg, injection, bipolar cautery, unipolar cautery, laser, heater probe, stapler, plasma professional athlete) CPT copyright 2021 [employer]. All rights reserved. The codes documented in this report are preliminary and upon die cast patternmaker review may be revised to meet current compliance requirements. Randall Ferris DO 12/04/2024 4:52:26 PM This report has been signed electronically. Number of Addenda: 0 Note Initiated On: 12/04/2024 3:23 PM
--- NOTE | 2024-12-04 16:53 | OP.PROVAT_ITS ---
12/04/2024 C[facility] Re : Upper GI endoscopy procedure for Patrice Garcia Kierar Kings This procedure was performed on Wednesday, December 04, 2024. My impressions and recommendations are as follows: Impressions : - LA Grade D erosive esophagitis with bleeding. Treated with a heater probe. - Paola-Kramer tear. Treated with a heater probe. - Hematin (altered blood/omkuue-bwmspz-aeii material) in the stomach. - No gross lesions in the entire examined duodenum. - No specimens collected. Recommendations : - [facility]. - Advance diet as tolerated. - Continue present medications. - Use Protonix (pantoprazole) 40 mg PO BID. - Use sucralfate tablets 1 gram PO QID for 2 months. My findings are described in the full procedure note, which is enclosed. If I can be of further assistance, please feel free to contact me at . Sincerely, Randall Ferris, 12/04/2024 4:52:26 PM This report has been signed electronically.
--- NOTE | 2024-12-04 17:54 | CASEMGMT ---
J[facility] CM readmission note: Index admission: 11/15-11/18: Admitting dx was R/O CVA. MRI done and was negative for acute CVA. Discharge dx was generalized weakness. Pt also w/hyponatremia, acute anemia, and bacteremia during hospitalization. Pt dc'd to [facility] 11/18 w/Rx's for cephalexin, sodium chloride tabs, senna, and acetaminophen. 11/20: Per CLAUDIA Cardoso, a message was received from [facility] on 11/19 that pt was requesting to leave the facility and will sign out AMA. 11/28: Pt presented to [facility] ED w/chief complaint of sacral wounds. Pt evaluated in ED and dc'd w/instructions to f[facility]u [facility] as soon as possible. Pt also to f/u with PCP in 1 week. Current admission: Admitted from home 12/04 w/dx: suspected GIB. Per ED summary, his home health aide stated pt has been refusing to eat or drink anything for last few days. Hgb on admit was 8.9, down from 11.8 on 11/19. Noted +occult stool and coffee ground emesis in ED. Pt developed hypotension and taken for upper GI endoscopy. Lorrie HOYTN RN CM
[2024-12-04] MEDS: 0.9% Normal Saline (1000mL) 1,000 ML 50 ML IV (18:03)
--- NOTE | 2024-12-04 18:14 | PN_ITS ---
Progress Note Patient underwent an upper endoscopy. He was discovered to have a Paola-Kramer tear and also severe erosive esophagitis. He received 1 unit of packed red blood cells. Since his blood pressure was still low we decided to send him up to the ICU. Physical Exam Narrative General: Alert, oriented, no apparent distress HEENT: Atraumatic, normocephalic Eyes: Anicteric, normal conjunctiva, extraocular movements grossly intact Neck: Supple Respiratory: No overt wheezes or rhonchi, normal respiratory effort Cardiovascular: Regular rate and rhythm GI: Soft, somewhat diffusely tender with voluntary guarding but no rigidity Extremities: 1+ lower extremity edema Musculoskeletal: Moving all extremities Neuro: No overt focal neurological deficits Skin: No rashes appreciated Psych: Cooperative Assessment & Plan Assessment/Plan (1) Coffee ground emesis: (2) Acute upper GI bleed: PLAN: Upper GI bleed secondary to Paola-Kramer tear and severe erosive esophagitis. Continue to monitor hemoglobin continue PPI, start product marketing coordinator fate and patient can have a full liquid diet. Visit Charges Inpatient E&M: 75699 Subs Hosp L2
--- NOTE | 2024-12-04 18:38 | POSTOPAN2_ITS ---
Anesthesia Postop Eval I Sum Postop Eval Completion status Anesthesia document: Postop Eval 1 completed: Yes Anesthesia Postop Eval I Summary Anesthesia Postop Eval I Summary: Anesthesia Postop Eval I: Assessment Summary Airway patent Yes 12/04/24 16:50 CLAIMS [email or web address] Spontaneous unlabored Yes 12/04/24 16:50 CLAIMS [email or web address] [email or web address] respirations Mental status nausea No 12/04/24 16:50 CLAIMS ADJUSTER [email or web address] Vomiting No 12/04/24 16:50 CLAIMS ADJUSTER [email or web address] Anesthesia Postop Eval I: Fluid Summary Crystalloid volume administer 200 12/04/24 16:50 CLAIMS ADJUSTER [email or web address] (ml) Colloids volume administered ( ml) Blood Product volume administered (ml) Total IV fluid infused 200 12/04/24 16:50 CLAIMS [email or web address] Anesthesia Postop Eval I: Summary Notes Anesthesia Complication No 12/04/24 16:50 CLAIMS [email or web address] Anesthesia Complication Comment: Post-operative progress note Anesthesia: Postop Eval II Evaluation Mental status: Awake and Calm Pain Level: 0 nausea: No Vomiting: No Progress Note Post-operative progress note: Patient continued to have low blood pressures in PACU despite the unit of blood he received prior to procedure. Second unit of packed red blood cells started in PACU. Patient is to be transferred to ICU per Dr. Patterson. Complications Anesthesia Complication: No
--- NOTE | 2024-12-04 18:38 | PCM.POSTANE2 ---
Anesthesia Postop Eval I Sum Postop Eval Completion status Anesthesia document: Postop Eval 1 completed: Yes Anesthesia Postop Eval I Summary Anesthesia Postop Eval I Summary: Anesthesia Postop Eval I: Assessment Summary Airway patent Yes 12/04/24 16:50 CONTACT LENS [email or web address] Spontaneous unlabored Yes 12/04/24 16:50 CONTACT LENS [email or web address] respirations Mental status nausea No 12/04/24 16:50 CONTACT LENS [email or web address] Vomiting No 12/04/24 16:50 CONTACT LENS [email or web address] Anesthesia Postop Eval I: Fluid Summary Crystalloid volume administer 200 12/04/24 16:50 CONTACT LENS [email or web address] (ml) Colloids volume administered ( ml) Blood Product volume administered (ml) Total IV fluid infused 200 12/04/24 16:50 CONTACT LENS [email or web address] Anesthesia Postop Eval I: Summary Notes Anesthesia Complication No 12/04/24 16:50 CONTACT LENS [email or web address] Anesthesia Complication Comment: Post-operative progress note Anesthesia: Postop Eval II Evaluation Mental status: Awake and Calm Pain Level: 0 nausea: No Vomiting: No Progress Note Post-operative progress note: Patient continued to have low blood pressures in PACU despite the unit of blood he received prior to procedure. Second unit of packed red blood cells started in PACU. Patient is to be transferred to ICU per Dr. Patterson. Complications Anesthesia Complication: No
[2024-12-04] MEDS: Lactated Ringers 1,000 ML 999 ML IV (18:46)
--- OUTSIDE RECORDS SUMMARY | 2024-12-04 20:20 | XMS RPT_ITS | CCD ---
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 money from but she is by no means paid. Dina would also like to know how to get started to be a paid medicaid caregiver and where to begin. Patient has a few specialists but she is not getting any help setting up transportation for this patient. Patient supposedly has children not involved with his care. Dina did say patient can be mean a times and doesn't really trust anyone. Dina is not sure what to do, who to call or where to begin. Said she feels like she is getting the run around from all of patients providers. Dina said patient is in need of lots of care and prefers holistic healing to medications. Dina feels like this detracts providers from providing care for patient. Dina would be appreciative of any information getting her going in the right direction. I gave Dina number to other community house call providers and the [facility]. Patient currenly residing in [place], [place]. Please advise with any resources or assistance that might be available. Thanks. [facility] 36 Tried to return call , voicemail full. Patients insurance is not accepted for [facility]. [facility] 36on 12-01-2024 36 Name of caller: Dina Contact phone number: [phone] Relationship to Patient: Provider: Practice: [facility] Yonny Chief Complaint/Reason for Call: Dina called and stated that she was to drop off paperwork today by 4:30 at the [place] location. She stated she was on her way but caught in slow traffic. She stated she wouldn't make it there by 04:30pm. She stated that she will try again tomorrow Best time of day caller can be reached: Patient advised that office/PCP has 24-48 business hours to return their call: [facility] 36 Name of caller: Dina Haynes Contact phone number: [phone] Relationship to Patient: caregiver Provider: Dr. Cao Practice: [facility] Chief Complaint/Reason for Call: Caller stated she did not realize she had left a message for senior Services, but would like a call to schedule patient for Home visits. In the previous TE for Today 12/01/2024, the caller was put as Dina, patients daughter, that is incorrect, it was the Caregiver named Dina. The caregiver states she has POA of patients medical and is going to bring that into the office today to have it scanned into the patients chart. I explained without that, I can not let her know about any appointment dates he has coming up. If Caller brings up the form can you inform her of patients 12/04/[address] Fallon for a Hospital follow up and Face to Face to evaluate for home care orders. Thank you. Best time of day caller can be reached: Any Patient advised that office/PCP has 24-48 business hours to return their call: Yes [place] [address] Name of caller: Dina Contact phone number: [phone] Relationship to Patient: family member patient and daughter Provider: Not established Practice: [facility] Chief Complaint/Reason for Call: Dina states that Patient needs evaluated in the home as their previous PCP will no longer see him and they need a provider who will come out to Patient's home as Patient cannot walk and getting Patient anywhere is a chore. Dina is requesting a call back and states they can be reached at anytime after 6 AM. Please advise. Best time of day caller can be reached: Any Patient advised that office/PCP has 24-48 business hours to return their call: Yes [place] [address] Spoke to Dina and re lease message below She verbalized understanding [facility] 36 He isn't being negle cted because if he was the Adult Protective Services that I had to call out to his home would have pursued placement. I cannot place orders for home care without a Face to Face documentation. The Hospital was able to put in orders for him to go to the facility. When he left A the stuff needed for homecare was not completed and would need a visit. I also have not seen him in over 2 years and at 3 years he would not be considered a patient. To place a order without a face to face would be Medicare Fraud, which is not something that I will be committing. If he is truly unable to come in the only option would be to get a Visiting Physician Service to come out. There is one such with that name but do not know if they go to where he lives. Otherwise he would need to come in. [facility] 36 I spoke to patients and released message Dina is very frustrated and does not know what to do. She states when they took patient to the ED it took them hours with help of some one else to get patient in and out of the car. Dina states 'Is he being neglected because he left [facility] at [facility]?'. She states 'She does not understand why the Hospital gave him the orders and his pcp cannot'. [place] [address] That is not a servic e that I provide. He would need to be switching to a provider that does home visits if that is the case. I also have not seen him in several years so do need a visit really to advise more on this. If he is unable to come in I don't have anything to recommend beyond that. [place] [address] Name of caller: Dina Contact phone number: [phone] Relationship to Patient: Caregiver Provider: Dr Fallon Practice: [facility] Chief Complaint/Reason for Call: Caller stated that they are unable to get patient up to bring to office. Caller stated that someone will have to come to his home to see him. Caller stated that patient was in ED 2 days ago with a very bad bed sore, they put a patch on it and sent him home. Caller stated that patient needs PT to come into the home to help get him up and moving. Caller stated to please call back to let them know what can be done, because there is no way they can get patient to the office on 12/04/2024 for appointment. Please advise. Thank you. Best time of day caller can be reached: Any Patient advised that office/PCP has 24-48 business hours to return their call: No [facility] Emergency Department Summary on 11-29-2024 Emergency Department Summary [facility] Medical Records Department [address] [place] [address] Emergency Department Summary 11/29/24 MR#: [id number] Acct: [id number] Name: PHILLY JOEL Rep #: [id number] : 1940 84 From: Haris Elise MD PCP: Dr. Guilherme Fallon MD Status:REG ER Location: ED HPI History of Present Illness Chief Complaint: Other, Pain/Inj Detail of Chief Complaint: sacral wounds Informant: patient Narrative Narrative: 84-year-old male who has been generally weak and after walking presenting to the ER around midnight for evaluation of wounds on his buttocks that have been there for maybe a little over a week ac cording to him. He denies any fevers chills significant discharge or bleeding from them. He was admitted to [facility] for rehab, but he hated it there and signed out AGAINST MEDICAL ADVICE after 1 day and has a live-in aide at home that has been helping him. He states for the most part, he is lying in bed. He can take some steps with a walker if he has help from his aide. He denies any new symptoms or feeling more poorly than he has in the past week, is just concerned about his sores because they hurt and he has been doing ointment and dressings on them but they do not seem to be healing. [facility] Medical History Weakness of lower extremity Acute hyponatremia Generalized weakness HTN (hypertension) Home Medications ???Medication ???Instructions ???Recorded ???Last Taken ???Type acetaminophen 325 mg tablet 650 mg (2 x 325 mg) PO Q6H PRN PRN 11/18/24 Unknown Rx Pain 1-10 Or Fever >100.7 #0 tabs cephalexin 500 mg tablet 500 mg PO TID #21 tabs 11/18/24 Un known Rx sennosides 8.6 mg-docusate sodium 2 tab PO BID PRN PRN Constipation 11/18/24 Unknown Rx 50 mg tablet (Stimulant Laxative #0 tabs Plus) sodium chloride 1,000 mg soluble 1,000 mg PO TID #0 tabs 11/18/24 U nknown Rx tablet Allergy/AdvReac Type Severity Reaction Status Date / Time Opioids - Morphine Analogues Allergy Intermediate Other Verified 11/29/24 00:00 Surgical History History of tonsillectomy H/O bilateral hip replacements Social History household members: caregiver housing: house Smoking Status: Former smoker ROS ROS ED Constitutional Constitutional ED: Denies chills or fever(s) Eyes Eyes: Denies change in vision or diplopia ENT ENT ED: Denies rhinorrhea or sore throat Cardiovascular Cardiovascular: Denies chest pain or palpitations Respiratory/Chest Respiratory/Chest: Denies cough or dyspnea Gastrointestinal Gastrointestinal: Denies abdominal pain, diarrhea, nausea or vomiting Genitourinary Genitourinary ED: Denies dysuria or hematuria Musculoskeletal Musculoskeletal: Denies back pain or neck pain Integumentary Reports as per HPI and wounds; Denies abscess or rash Neurologic Neurologic: Denies headache(s), paresthesias or weakness Psychiatric Psychiatric: Denies anxiety or suicidal thoughts EXAM Physical Exam Const Vital Signs: 11/28/24 23:57 11/29/24 00:00 Temperature 99.2 F H 99.2 F H Temperature Source Oral Oral Pulse Rate 76 76 Respiratory Rate 18 18 Blood Pressure 129/65 H 115/69 Blood Pressure Mean 86 84 Pulse Ox 98 98 Oxygen Delivery Method Room Air Room Air Positive well nourished and well developed General Appearance ED: well developed and NAD HEENT Reports moist mucous membranes normocephalic and atraumatic Eyes PERRL and EOMs intact bilaterally Neck full ROM and supple Resp normal respiratory effort GI non-tender and non-distended Auscultation: normoactive bowel sounds Palpation: soft Extremity normal to inspection General Extremety ED: Negative for edema, pulses abnormal or tenderness General Extremity: Negative for edema or pulses abnormal Neuro oriented x3, CN's II-XII intact bilaterally and no sensory deficits noted Sensorium / Orientation: awake and alert Motor Exam: strength 5/5 throughout Skin no rashes or lesions noted Skin Narrative: Patient has 2 small roughly 2 cm each early stage II decubitus ulcers separate from each other in the area of the buttocks, there are some nonblanching erythema but no tenderness away from the ulcerations himself. They do not appear to be infected. There is no midline tenderness. There is no abscess or fullness or fluctuance anywhere and there is no active discharge or bleeding. MDM MDM MDM Narrative Medical decision making narrative: In my judgment these do not appear to be infected. I do not think he needs antibiotics nor does he need testing to search for a deep space tissue involvement. I think he just needs better wound care, as (more content not included)... [facility] 11-25-2024 36 [facility]. No answer. Vmbox is full Sent BitLeap message. [facility] 36 He will need a face to face visit for the authorization of more at home services so would need an appointment. [facility] 11-24-2024 36 Name of caller: dina Contact phone number: [phone] Relationship to Patient: caregiver Provider: Practice: [facility] Chief Complaint/Reason for Call: Dina calling with phone number to [facility] for the auth for in home health care that was authorized by office. Dina states has fax of [phone]. Dina says their phone is [phone]. Dina is requesting authorization be faxed to [facility].Please advise. Best time of day caller can be reached: AM Patient advised that office/PCP has 24-48 business hours to return their call: N/A [facility] 11-23-2024 36 He has home care I a m not sure what status they are referring to. Still would be best to contact APS for follow up to make sure nothing else is needed on their end and any concerns they may have. [facility] 36 Name of caller: Dina Ivy Contact phone number: [phone] Relationship to Patient: Caregiver Provider: Dr. Fallon Practice: [facility] Chief Complaint/Reason for Call: Caller stated APS was out to the home for a visit and everything went well, patient is getting taken care of. Caller is checking on home care status and stated patient needs help SERGIO. Please advise. Thank you. Best time of day caller can be reached: Any Patient advised that office/PCP has 24-48 business hours to return their call: Yes [facility] 36 Noted. Can we follow up with APS and see what came of their visit and if they have concerns? [facility] 36on 11-20-2024 36 Message released to patient as written. I am not sure at this point either. APS was going out today due to the concerns to check and see what he is doing and if he is coherent. If he is not of sound mind he may end up back in for his safety. I suspect that he won't agree with going to the ER as he has not to this point. We may want to call APS again and speak with them for follow up towards the end of the day if possible. Patient's further questions if applicable: Milka stated she feels Pt is coherent just not making the best choices. She stated she will call Pt and advise him to go to the ER. Were all questions from office addressed or relayed to the patient from encounter: Yes [facility] 36 I am not sure at thi s point either. APS was going out today due to the concerns to check and see what he is doing and if he is coherent. If he is not of sound mind he may end up back in for his safety. I suspect that he won't agree with going to the ER as he has not to this point. We may want to call APS again and speak with them for follow up towards the end of the day if possible. [facility] 36 Name of caller: Amalia pedraza Contact phone number: [phone] Relationship to Patient: [facility] Provider: Dr. Fallon Practice: [facility] Chief Complaint/Reason for Call: Milka states she is faxing over patients lab draws. States patient has left facility against medical advice. Milka requesting a call back on what to do next. States unsure if she should call patient and advise emergency department. Please advise. Best time of day caller can be reached: any Patient advised that office/PCP has 24-48 business hours to return their call: No [place] [address] Spoke with APS kevin roach details of the concern, signed out AMA after stroke rule out, unable to care for self at home, sitting in urine and feces. Contact info provided. 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 B: pt was in [facility] but signed himself out AMA yesterday and he is at home now. A: Dina said the patient sleeps on his couch. He sits in his stool in feces until she is able to get help. She said I can't care for him alone and he is mean to everyone. She said he can't stand alone and she can't lift him. R: She said his insurance will cover in home care and physical therapy if that could be ordered. Reason for Disposition Nursing judgment Protocols used: Information Only Call - No [id number] [place] [address] Multiple encounters for this. Closing this one. [place] [address] Please contact APS a nd inform them of the situation and the urgency - It does not sound like he is able to care for himself nor is he mentally capable, though I have not evaluated him myself. He signed himself out AMA yesterday from the half-way. [place] [address] S: Patients hospitality housekeeper/caregiver Dina [phone] called the clinical access center with complaint of patient not able to care for himself. B: pt was in [facility] but signed himself out AMA yesterday and he is at home now. A: Dina said the patient sleeps on his couch. He sits in his stool in feces until she is able to get help. She said I can't care for him alone and he is mean to everyone. She said he can't stand alone and she can't lift him. R: She said his insurance will cover in home care and physical therapy if that could be ordered. Reason for Disposition Nursing judgment Protocols used: Information Only Call - No [id number] [facility] 36 Name of caller: Dina Contact phone number: [phone] Relationship to Patient: [facility] Provider: Practice: [facility] Chief Complaint/Reason for Call: Dina calling back in regards to needing verbal orders from Dr Fallon for in home health care. She is very frustrated and doesn't know what to do with pt at the moment since he's not cooperating with her and is currently sitting in his urine. He has no bed and can't walk. He's refusing to call his daughter and refusing to go to the ER. Dina can't clean him or lift him at all and needs help and needs a 24/hr nurse out to help him. Please call Dina and advise. secure line. Best time of day caller can be reached: any Patient advised that office/PCP has 24-48 business hours to return their call: Yes [facility] 36on 11-19-2024 36 Name of caller: Dina Contact phone number: [phone] Relationship to Patient: [facility] Provider: Practice: [facility] Chief Complaint/Reason for Call: Dina needs verbal order that provider will follow patient for home care orders. Please advise Dina and leave voicemail on secure line. Best time of day caller can be reached: any Patient advised that office/PCP has 24-48 business hours to return their call: Yes [facility] Absolute lymphocyte countOrd ered By: Leidy Valadez on 11-19-2024 Lymphocytes Auto (Unsp spec) [#/Vol] 0.78 10*3/uL Low 0.83-4.51 [facility] Absolute neutrophil countOrd ered By: Leidy Valadez on 11-19-2024 Neutrophils (Bld) [#/Vol] 12.7 10*3/uL High 2.0-7.7 [facility] Anion gap in Serum or Plasma Ordered By: Leidy Valadez on 11-19-2024 Anion gap [Moles/Vol] 8 mmol/L 5-15 [facility] Automated lymphocyte count a s percentage of total leukocytesOrdered By: Leidy Valadez on 11-19-2024 Lymphocytes/100 WBC Auto (Unsp spec) 5.2 % Low 19-41 [facility] BUN/creatinine ratioOrdered By: Ednahendersonvillesky Valadez on 11-19-2024 Urea nitrogen/Creatinine [Mass ratio] 24.1 mg/mg High 10-20 [facility] Basophil percentageOrdered B y: Leidy Valadez on 11-19-2024 Basophils/100 WBC (Bld) 0.3 % 0-1 [facility] Bilirubin, totalOrdered By: jerryhendersonvillesky Valadez on 11-19-2024 Bilirubin [Mass/Vol] 0.70 mg/dL 0.00-1.30 [facility] Carbon dioxide, total [Moles /volume] in Central venous bloodOrdered By: [facility] Nachoanthony on 11-19-2024 CO2 [Moles/Vol] 23.7 mmol/L 21.0-32.0 [facility] Chloride assayOrdered By: apryl Valadez on 11-19-2024 Chloride [Moles/Vol] 93 mmol/L Low 98-108 [facility] Culture, Blood (WB)on 2024 CUB GRAM STAIN= GRAM POS ITIVE COCCI IN CHAINS AEROBIC BOTTLE Culture, Blood (WB) RESULTS CALLED TO JEFFERSON 11/17/24 0637 [place] Julian. REPORT READ BACK BY LFORREST. Strep anginosus Amount Growth Growth Strep anginosus: REACTION Ampicillin Islt BERENICE <=0.25 Penicillin G Islt BERENICE <=0.06 S Cefotaxime Islt BERENICE <=0.12 S cefTRIAXone Islt BERENICE <=0.12 S Clindamycin Islt BERENICE <=0.25 S Erythromycin Islt BERENICE <=0.12 S Vancomycin Islt BERENICE 0.5 S Normal [facility] Comment on above: Performed By: #### L 500.2500, L300.3900, L501.5200, L500.4100, L100.0100 #### [facility] [address] [place], [address] Eosinophil percentageOrdered By: [facility] Valadez on 11-19-2024 Eosinophils/100 WBC (Bld) 0.9 % 0-5 [facility] Erythrocyte distribution wid th ratioOrdered By: [facility] Val[facility] on 11-19-2024 Erythrocyte distribution width (RBC) [Ratio] 14.4 % 11.6-14.6 [facility] Erythrocyte distribution wid th standard deviationOrdered By: jerryhendersonvillesky Valadez on 11-19-2024 Erythrocyte distribution width (RBC) [Ratio] 45.3 fl High 35.1-43.9 [facility] Glomerular filtration rate ( GFR) estimation/1.73 sq m using serum, plasma, or whole bOrdered By: jerryhendersonvillesky Valadez on 11-19-2024 GFR/1.73 sq M.predicted among non-blacks MDRD (S/P/Bld) [Vol rate/Area] 93 mL/min/{1.73_m2} >60 [facility] Comment on above: mL/min/1.73m2 CKD-EP I Creatinine Equation (2020) Hematocrit Auto (Bld) [Volum e fraction]Ordered By: [facility] Val[facility] on 11-19-2024 Hematocrit (Bld) [Volume fraction] 35.0 % Low 40-54 [facility] Hemoglobin measurementOrdere d By: Leidy Valadez 11-19-2024 Hemoglobin (Bld) [Mass/Vol] 11.8 g/dL Low 13.0-16.5 [facility] Immature granulocytes/100 WB C Auto (Bld)Ordered By: Leidy Valadez on 11-19-2024 Immature granulocytes/100 WBC (Bld) 0.900 % 0.0-0.9 [facility] Comment on above: IG% - Immature Granu locytes (promyelocytes, myelocytes and metamyelocytes) > 1% indicates that a LEFT SHIFT is Present. Laboratory - Chemistry and C hemistry - challengeOrdered By: Leidy Valadez on 11-19-2024 AST [Catalytic activity/Vol] 103 U/L High <38 [facility] MCV (mean corpuscular volume ) determinationOrdered By: Leidy Valadez on 11-19-2024 MCV (RBC) [Entitic vol] 85.6 fL 80-94 [facility] Mean corpuscular hemoglobin (MCH) determinationOrdered By: Romejerryrobertosky Griffithkathrynralf on 11-19-2024 MCH (RBC) [Entitic mass] 28.9 pg 27.0-32.0 [facility] Mean corpuscular hemoglobin concentration (MCHC) determinationOrdered By: Leidy Griffithkathrynralf on 11-19-2024 MCHC (RBC) [Mass/Vol] 33.7 g/dL 32-36 [facility] Mean platelet volume determi nationOrdered By: Leidy Griffithkathrynralf on 11-19-2024 Platelet mean volume (Bld) [Entitic vol] 9.3 fL 6.2-12.0 [facility] Monocyte percentageOrdered B y: Leidy Valadez on 11-19-2024 Monocytes/100 WBC (Bld) 7.8 % 0-10 [facility] Neutrophil percentageOrdered By: Leidy Griffithkathrynralf on 11-19-2024 Neutrophils/100 WBC (Bld) 84.9 % High 47-70 [facility] Nucleated red blood cell per centageOrdered By: Leidy Griffithkathrynralf on 11-19-2024 Nucleated RBC/100 WBC (Bld) [Ratio] 0 % 0-5 [facility] Platelet countOrdered By: Rome uxsky Valadez on 11-19-2024 Platelets (Bld) [#/Vol] 387 10*3/uL 150-450 [facility] Potassium measurement (mass/ volume)Ordered By: Leidy Valadez on 11-19-2024 Potassium (Unsp spec) [Mass/Vol] 4.7 mmol/L 3.3-5.1 [facility] RBC Auto (Bld) [#/Vol]Ordere d By: Leidy Valadez on 11-19-2024 RBC (Bld) [#/Vol] 4.09 10*6/uL Low 4.6-6.2 [facility] Serum creatinine measurement (mass/volume)Ordered By: Leidy Valadez on 11-19-2024 Creatinine [Mass/Vol] 0.63 mg/dL Low 0.70-1.20 [facility] Serum globulin measurementOr dered By: Leidy Valadez on 11-19-2024 Globulin (S) [Mass/Vol] 3.2 g/dL 2.2-4.2 [facility] Serum glucose measurement (m ass/volume)Ordered By: Leidy Valadez on 11-19-2024 Glucose [Mass/Vol] 111 mg/dL High 70-99 [facility] Serum or plasma alanine berry otransferase (ALT) measurementOrdered By: Leidy Valadez on 11-19-2024 ALT [Catalytic activity/Vol] 112 U/L High <47 [facility] Serum or plasma albumin maikel urement (mass/volume)Ordered By: Leidy Valadez on 11-19-2024 Albumin [Mass/Vol] 2.8 g/dL Low 3.4-4.8 [facility] Serum or plasma albumin/glob ulin mass ratioOrdered By: Leidy Valadez on 11-19-2024 Albumin/Globulin [Mass ratio] 0.9 {ratio} 0.9-2.4 [facility] Serum or plasma alkaline robert sphatase measurementOrdered By: Leidy Valadez 11-19-2024 ALP [Catalytic activity/Vol] 174 U/L High 40-129 [facility] Serum or plasma calcium maikel urement (mass/volume)Ordered By: Leidy Valadez 11-19-2024 Calcium [Mass/Vol] 8.3 mg/dL 7.6-11.0 [facility] Serum or plasma urea nitroge n measurement (mass/volume)Ordered By: Leidy Valadez on 11-19-2024 Urea nitrogen [Mass/Vol] 15 mg/dL 4-19 [facility] Sodium levelOrdered By: Edna Valadez on 11-19-2024 Sodium [Moles/Vol] 125 mmol/L Low 133-145 [facility] Total proteinOrdered By: Yohannes Valadez on 11-19-2024 Protein [Mass/Vol] 6.0 g/dL 5.9-8.4 [facility] White blood cell (WBC) count Ordered By: Endanavi Terriralf on 11-19-2024 WBC (Bld) [#/Vol] 14.9 10*3/uL High 4.4-11.0 [facility] Abdomen/Pelvis W IV Cont ONL Yon 11-18-2024 Abdomen/Pelvis W IV Cont ONLY [facility] Imaging Services [address] [place] [address] Abdomen/Pelvis W IV Cont ONLY MR#: [id number] Acct: [id number] Name: PHILLY JOEL Rep #: [id number] : 1940 M 84 From: Luca Albarran MD PCP: Dr. Guilherme Fallon MD Status: ADM IN Study: Abdomen/Pelvis W IV Cont ONLY Date of Exam: Exam# [id number] Ordering Dr: Luca Yeh DO EXAM: CT Abdomen and Pelvis With Intravenous Contrast CLINICAL INDICATION: POSITIVE BLOOD CULTURE, RULE OUT ABSCESS TECHNIQUE: Axial computed tomography images of the abdomen and pelvis with intravenous contrast. This CT exam was performed using one or more of the following dose reduction techniques: automated exposure control, adjustment of the mA and/or kV according to patient size, and/or use of iterative reconstruction technique. COMPARISON: No relevant prior studies available. FINDINGS: LUNG BASES: See below. PLEURAL SPACE: Bilateral pleural effusion with compressive atelectasis. MEDIASTINUM: Moderate esophageal hiatal hernia. ABDOMEN: LIVER: Hepatomegaly with fatty infiltration. GALLBLADDER AND BILE DUCTS: Unremarkable. No calcified stones. No ductal dilation. PANCREAS: Unremarkable. No mass. No ductal dilation. SPLEEN: Unremarkable. No splenomegaly. ADRENALS: Unremarkable. No mass. KIDNEYS AND URETERS: 8.4 cm simple right renal cyst. No hydronephrosis. STOMACH AND BOWEL: Constipation with suggestion of fecal impaction of the rectum. Fecal retention in the colon consistent with constipation. No obstruction. No mucosal thickening. PELVIS: APPENDIX: No findings to suggest acute appendicitis. BLADDER: Unremarkable. No mass. REPRODUCTIVE: Unremarkable as visualized. ABDOMEN and PELVIS: INTRAPERITONEAL SPACE: Unremarkable. No free air. No significant fluid collection. 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 No acute fracture. No dislocation. SOFT TISSUES: Unremarkable. VASCULATURE: Scattered calcified atherosclerotic disease of aorta. No abdominal aortic aneurysm. LYMPH NODES: Unremarkable. No enlarged lymph nodes. CT/Abdomen/Pelvis W IV Cont ONLY IMPRESSION: 1. Constipation with suggestion of fecal impaction of the rectum. 2. Moderate esophageal hiatal hernia. 3. Hepatomegaly with fatty infiltration. 4. Fecal retention in the colon consistent with constipation. 5. 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 6. Bilateral pleural effusion with compressive atelectasis. 7. 8.4 cm simple right renal cyst. Reading Location: [facility] CC: Dr. Guilherme Fallon MD; Dr. Luca Yeh DO General Forecaster: Signed Normal [facility] Absolute lymphocyte countOrd ered By: Luca Yeh on 11-17-2024 Lymphocytes Auto (Unsp spec) [#/Vol] 0.60 10*3/uL Low 0.83-4.51 [facility] Absolute neutrophil countOrd ered By: Luca Yeh on 11-17-2024 Neutrophils (Bld) [#/Vol] 8.1 10*3/uL High 2.0-7.7 [facility] Anion gap in Serum or Plasma Ordered By: Luca Yeh on 11-17-2024 Anion gap [Moles/Vol] 9 mmol/L 5-15 [facility] Automated lymphocyte count a s percentage of total leukocytesOrdered By: Luca Yeh on 11-17-2024 Lymphocytes/100 WBC Auto (Unsp spec) 6.1 % Low 19-41 [facility] BC GPC IDon 11-17-2024 GPC ID Enterococcus sp. Not Detected Listeria spp Not Detected NAAT METHOD Testing was performed using nucleic acid amplification Staphylococcus sp. Not Detected Streptococcus spp. A DETECTED A mecA Testing not performed Strep anginosus Normal [facility] Comment on above: Performed By: #### L 500.2500, L300.3900, L501.5200, L500.4100, L100.0100 #### [facility] [address] [place], [place], [id number] BUN/creatinine ratioOrdered By: Luca Yeh on 11-17-2024 Urea nitrogen/Creatinine [Mass ratio] 24.6 mg/mg High 10-20 [facility] Basic Metabolic Profile (BMP )on 11-17-2024 BUN/CRE 24.6 RATIO High - [facility] Comment on above: Performed By: #### L 500.2500 #### [facility] [address] [place], [address] ECRCL 78.49 ml/min Normal 50-250 [facility] Comment on above: Performed By: #### L 500.2500 #### [facility] [address] [place], [address] GAP 9 Normal 5-15 [facility] Comment on above: Performed By: #### L 500.2500 #### [facility] [address] [place], [address] Potassium [Moles/Vol] 4.7 mmol/L Normal 3.3-5.1 [facility] Comment on above: Performed By: #### L 500.2500 #### [facility] [address] [place], [address] Basophil percentageOrdered B y: Luca Yeh on 11-17-2024 Basophils/100 WBC (Bld) 0.3 % 0-1 [facility] CBC W/Diff, Automatedon 07- Absolute Lymph 0.60 X10 3/uL Low 0.83-4.51 [facility] Comment on above: Performed By: #### L 100.0100 #### [facility] [address] [place], [address] Absolute Neut 8.1 X10 3/uL High 2.0-7.7 [facility] Comment on above: Performed By: #### L 100.0100 #### [facility] [address] [place], [address] Basophils/100 WBC (Bld) 0.3 % Normal 0-1 [facility] Comment on above: Performed By: #### L 100.0100 #### [facility] [address] [place], [address] Eosinophils/100 WBC (Bld) 0.8 % Normal 0-5 [facility] Comment on above: Performed By: #### L 100.0100 #### [facility] [address] [place], [address] Erythrocyte distribution width (RBC) [Ratio] 14.6 % Normal 11.6-14.6 [facility] Comment on above: Performed By: #### L 100.0100 #### [facility] [address] [place], [address] Hematocrit (Bld) [Volume fraction] 33.2 % Low 40-54 [facility] Comment on above: Performed By: #### L 100.0100 #### [facility] [address] [place], [address] Hemoglobin (Bld) [Mass/Vol] 11.4 g/dL Low 13.0-16.5 [facility] Comment on above: Performed By: #### L 100.0100 #### [facility] [address] [place], [address] IG% 0.900 Normal 0.0-0.9 [facility] Comment on above: Result Comment: IG% - Immature Granulocytes (promyelocytes, myelocytes and metamyelocytes) > 1% indicates that a LEFT SHIFT is Present. Performed By: #### L 100.0100 #### [facility] [address] [place], [address] Lymphocytes/100 WBC (Bld) 6.1 % Low 19-41 [facility] Comment on above: Performed By: #### L 100.0100 #### [facility] [address] [place], [address] MCH (RBC) [Entitic mass] 29.3 pg Normal 27.0-32.0 [facility] Comment on above: Performed By: #### L 100.0100 #### [facility] [address] [place], [address] MCHC (RBC) [Mass/Vol] 34.3 g/dL Normal 32-36 [facility] Comment on above: Performed By: #### L 100.0100 #### [facility] [address] [place], [address] MCV (RBC) [Entitic vol] 85.3 fL Normal 80-94 [facility] Comment on above: Performed By: #### L 100.0100 #### [facility] [address] [place], [address] Monocytes/100 WBC (Bld) 10.0 % Normal 0-10 [facility] Comment on above: Performed By: #### L 100.0100 #### [facility] [address] [place], [address] Neutrophils/100 WBC (Bld) 81.9 % High 47-70 [facility] Comment on above: Performed By: #### L 100.0100 #### [facility] [address] [place], [address] Nucleated RBC (Bld) [#/Vol] 0 10*3/uL Normal 0-5 [facility] Comment on above: Performed By: #### L 100.0100 #### [facility] [address] [place], [address] Platelet mean volume (Bld) [Entitic vol] 9.1 fL Normal 6.2-12.0 [facility] Comment on above: Performed By: #### L 100.0100 #### [facility] [address] [place], [address] Platelets (Bld) [#/Vol] 328 10*3/uL Normal 150-450 [facility] Comment on above: Performed By: #### L 100.0100 #### [facility] [address] [place], [address] RBC (Bld) [#/Vol] 3.89 10*6/uL Low 4.6-6.2 [facility] Comment on above: Performed By: #### L 100.0100 #### [facility] [address] [place], [address] RDW SD 45.9 fl High 35.1-43.9 [facility] Comment on above: Performed By: #### L 100.0100 #### [facility] [address] [place], [address] WBC (Bld) [#/Vol] 9.9 10*3/uL Normal 4.4-11.0 [facility] Comment on above: Performed By: #### L 100.0100 #### [facility] [address] [place], [address] Carbon dioxide, total [Moles /volume] in Central venous bloodOrdered By: Luca Yeh on 11-17-2024 CO2 [Moles/Vol] 23.1 mmol/L 21.0-32.0 [facility] Comment on above: Performed By: #### L 500.2500 #### [facility] [address] [place], [address] Chloride assayOrdered By: Manuel Yeh on 11-17-2024 Chloride [Moles/Vol] 95 mmol/L Low 98-108 [facility] Comment on above: Performed By: #### L 500.2500 #### [facility] [address] [place], [address] Eosinophil percentageOrdered By: Luca Yeh on 11-17-2024 Eosinophils/100 WBC (Bld) 0.8 % 0-5 [facility] Erythrocyte distribution wid th ratioOrdered By: Luca Yeh on 11-17-2024 Erythrocyte distribution width (RBC) [Ratio] 14.6 % 11.6-14.6 [facility] Erythrocyte distribution wid th standard deviationOrdered By: Luca Yeh on 11-17-2024 Erythrocyte distribution width (RBC) [Ratio] 45.9 fl High 35.1-43.9 [facility] Glomerular filtration rate ( GFR) estimation/1.73 sq m using serum, plasma, or whole bOrdered By: Luca Yeh on 11-17-2024 GFR/1.73 sq M.predicted among non-blacks MDRD (S/P/Bld) [Vol rate/Area] 90 mL/min/{1.73_m2} >60 [facility] Comment on above: mL/min/1.73m2 CKD-EP I Creatinine Equation (2020) Result Comment: mL/m in/1.73m2 CKD-EPI Creatinine Equation (2020) Performed By: #### L 500.2500 #### [facility] [address] [place], [place] [address], [address] Hematocrit Auto (Bld) [Volum e fraction]Ordered By: Luca Yeh on 11-17-2024 Hematocrit (Bld) [Volume fraction] 33.2 % Low 40-54 [facility] Hemoglobin measurementOrdere d By: Luca Yeh on 11-17-2024 Hemoglobin (Bld) [Mass/Vol] 11.4 g/dL Low 13.0-16.5 [facility] Immature granulocytes/100 WB C Auto (Bld)Ordered By: Luca Yeh on 11-17-2024 Immature granulocytes/100 WBC (Bld) 0.900 % 0.0-0.9 [facility] Comment on above: IG% - Immature Granu locytes (promyelocytes, myelocytes and metamyelocytes) > 1% indicates that a LEFT SHIFT is Present. MCV (mean corpuscular volume ) determinationOrdered By: Luca Yeh on 11-17-2024 MCV (RBC) [Entitic vol] 85.3 fL 80-94 [facility] Mean corpuscular hemoglobin (MCH) determinationOrdered By: Luca Yeh on 11-17-2024 MCH (RBC) [Entitic mass] 29.3 pg 27.0-32.0 [facility] Mean corpuscular hemoglobin concentration (MCHC) determinationOrdered By: Luca Yeh on 11-17-2024 MCHC (RBC) [Mass/Vol] 34.3 g/dL 32-36 [facility] Mean platelet volume determi nationOrdered By: Luca Yeh on 11-17-2024 Platelet mean volume (Bld) [Entitic vol] 9.1 fL 6.2-12.0 [facility] Monocyte percentageOrdered B y: Luca Yeh on 11-17-2024 Monocytes/100 WBC (Bld) 10.0 % 0-10 [facility] Neutrophil percentageOrdered By: Luca Yeh on 11-17-2024 Neutrophils/100 WBC (Bld) 81.9 % High 47-70 [facility] Nucleated red blood cell per centageOrdered By: Luca Yeh on 11-17-2024 Nucleated RBC/100 WBC (Bld) [Ratio] 0 % 0-5 [facility] Platelet countOrdered By: Manuel Yeh on 11-17-2024 Platelets (Bld) [#/Vol] 328 10*3/uL 150-450 [facility] Potassium measurement (mass/ volume)Ordered By: Luca Yeh on 11-17-2024 Potassium (Unsp spec) [Mass/Vol] 4.7 mmol/L 3.3-5.1 [facility] RBC Auto (Bld) [#/Vol]Ordere d By: Luca Yeh on 11-17-2024 RBC (Bld) [#/Vol] 3.89 10*6/uL Low 4.6-6.2 [facility] Serum creatinine measurement (mass/volume)Ordered By: Luca Yeh on 11-17-2024 Creatinine [Mass/Vol] 0.70 mg/dL 0.70-1.20 [facility] Comment on above: Performed By: #### L 500.2500 #### [facility] [address] [place], [place] [address]. [place], [place], [id number] Serum glucose measurement (m ass/volume)Ordered By: Luca Yeh on 11-17-2024 Glucose [Mass/Vol] 117 mg/dL High 70-99 [facility] Comment on above: Performed By: #### L 500.2500 #### [facility] [address] [place], [address] Serum or plasma calcium maikel urement (mass/volume)Ordered By: Luca Yeh on 11-17-2024 Calcium [Mass/Vol] 8.2 mg/dL 7.6-11.0 [facility] Comment on above: Performed By: #### L 500.2500 #### [facility] [address] [place], [address] Serum or plasma urea nitroge n measurement (mass/volume)Ordered By: Luca Yeh on 11-17-2024 Urea nitrogen [Mass/Vol] 17 mg/dL 4-19 [facility] Comment on above: Performed By: #### L 500.2500 #### [facility] [address] [place], [address] Sodium levelOrdered By: Luca Yeh on 11-17-2024 Sodium [Moles/Vol] 127 mmol/L Low 133-145 [facility] Comment on above: Performed By: #### L 500.2500 #### [facility] [address] [place], [address] White blood cell (WBC) count Ordered By: Luca Yeh on 11-17-2024 WBC (Bld) [#/Vol] 9.9 10*3/uL 4.4-11.0 [facility] Basic Metabolic Profile (BMP )on 11-16-2024 BUN/CRE 26.3 RATIO High 10-20 [facility] Comment on above: Order Comment: Comme nts: NPO at [place] prior to lipid panel Performed By: #### L 500.2500, L300.3900, L501.5200, L500.4100, L100.0100 #### [facility] [address] [place], [address] Calcium [Mass/Vol] 8.0 mg/dL Normal 7.6-11.0 [facility] Comment on above: Order Comment: Comme nts: NPO at [place] prior to lipid panel Performed By: #### L 500.2500, L300.3900, L501.5200, L500.4100, L100.0100 #### [facility] [address] [place], [address] Chloride [Moles/Vol] 95 mmol/L Low 98-108 [facility] Comment on above: Order Comment: Comme nts: NPO at [place] prior to lipid panel Performed By: #### L 500.2500, L300.3900, L501.5200, L500.4100, L100.0100 #### [facility] [address] [place], [address] CO2 [Moles/Vol] 23.7 mmol/L Normal 21.0-32.0 [facility] Comment on above: Order Comment: Comme nts: NPO at [place] prior to lipid panel Performed By: #### L 500.2500, L300.3900, L501.5200, L500.4100, L100.0100 #### [facility] [address] [place], [address] Creatinine [Mass/Vol] 0.72 mg/dL Normal 0.70-1.20 [facility] Comment on above: Order Comment: Comme nts: NPO at [place] prior to lipid panel Performed By: #### L 500.2500, L300.3900, L501.5200, L500.4100, L100.0100 #### [facility] [address] [place], [address] ECRCL 78.49 ml/min Normal 50-250 [facility] Comment on above: Order Comment: Comme nts: NPO at [place] prior to lipid panel Performed By: #### L 500.2500, L300.3900, L501.5200, L500.4100, L100.0100 #### [facility] [address] [place], [address] GAP 9 Normal 5-15 [facility] Comment on above: Order Comment: Comme nts: NPO at [place] prior to lipid panel Performed By: #### L 500.2500, L300.3900, L501.5200, L500.4100, L100.0100 #### [facility] [address] [place], [address] GFR/1.73 sq M.predicted among non-blacks MDRD (S/P/Bld) [Vol rate/Area] 90 mL/min/{1.73_m2} Normal >60 [facility] Comment on above: Order Comment: Comme nts: NPO at [place] prior to lipid panel Result Comment: mL/m in/1.73m2 CKD-EPI Creatinine Equation (2020) Performed By: #### L 500.2500, L300.3900, L501.5200, L500.4100, L100.0100 #### [facility] [address] [place], [address] Glucose [Mass/Vol] 122 mg/dL High 70-99 [facility] Comment on above: Order Comment: Comme nts: NPO at [place] prior to lipid panel Performed By: #### L 500.2500, L300.3900, L501.5200, L500.4100, L100.0100 #### [facility] [address] [place], [address] Potassium [Moles/Vol] 3.9 mmol/L Normal 3.3-5.1 [facility] Comment on above: Order Comment: Comme nts: NPO at [place] prior to lipid panel Performed By: #### L 500.2500, L300.3900, L501.5200, L500.4100, L100.0100 #### [facility] [address] [place], [address] Sodium [Moles/Vol] 127 mmol/L Low 133-145 [facility] Comment on above: Order Comment: Comme nts: NPO at [place] prior to lipid panel Performed By: #### L 500.2500, L300.3900, L501.5200, L500.4100, L100.0100 #### [facility] [address] [place], [address] Urea nitrogen [Mass/Vol] 19 mg/dL Normal 4-19 [facility] Comment on above: Order Comment: Comme nts: NPO at [place] prior to lipid panel Performed By: #### L 500.2500, L300.3900, L501.5200, L500.4100, L100.0100 #### [facility] [address] [place], [address] Brain without Contraston Brain without Contrast [facility] Imaging Services [address] [place] [address] Brain without Contrast MR#: [id number] Acct: [id number] Name: PHILLY JOEL Rep #: [id number] : 1940 M 84 From: Sushil Castaneda DO PCP: Dr. Guilherme Fallon MD Status: ADM IN Study: Brain without Contrast Date of Exam: 11/16/24 Exam# [id number] Ordering Dr: Shannan Patterson MD PROCEDURE: BRAIN WITHOUT CONTRAST 11/16/2024 REASON FOR EXAM: CONCERN FOR CVA TECHNIQUE: BRAIN WITHOUT CONTRAST Multiplanar and multisequence images were obtained. Sequences obtained were according to protocol do to patient preference. COMPARISON: CT brain, November 15, 2024 FINDINGS: Brain: No focal restricted diffusion. Midline structures are unremarkable. Ventricles: Prominent size of the ventricles and sulci is consistent with age related involution. Major Intracranial Vessels: Normal flow voids present Sinuses: Right maxillary sinusitis Mastoids: Left mastoid effusion MRI/Brain without Contrast IMPRESSION: No evidence of restricted diffusion. No acute brain abnormality detected only limited sequences Age-related changes involution Right maxillary sinusitis Reading Location: [facility] CC: Dr. Guilherme Fallon MD; Dr. Shannan Patterson MD General Forecaster: Signed Normal [facility] CBC W/Diff, Automatedon 07-0 Absolute Lymph 0.48 X10 3/uL Low 0.83-4.51 [facility] Comment on above: Performed By: #### L 500.2500, L300.3900, L501.5200, L500.4100, L100.0100 #### [facility] [address] [place], [address] Absolute Neut 7.0 X10 3/uL Normal 2.0-7.7 [facility] Comment on above: Performed By: #### L 500.2500, L300.3900, L501.5200, L500.4100, L100.0100 #### [facility] [address] [place], [address] Basophils/100 WBC (Bld) 0.3 % Normal 0-1 [facility] Comment on above: Performed By: #### L 500.2500, L300.3900, L501.5200, L500.4100, L100.0100 #### [facility] [address] [place], [address] Eosinophils/100 WBC (Bld) 0.6 % Normal 0-5 [facility] Comment on above: Performed By: #### L 500.2500, L300.3900, L501.5200, L500.4100, L100.0100 #### [facility] [address] [place], [address] Erythrocyte distribution width (RBC) [Ratio] 14.7 % High 11.6-14.6 [facility] Comment on above: Performed By: #### L 500.2500, L300.3900, L501.5200, L500.4100, L100.0100 #### [facility] [address] [place], [address] Hematocrit (Bld) [Volume fraction] 29.8 % Low 40-54 [facility] Comment on above: Performed By: #### L 500.2500, L300.3900, L501.5200, L500.4100, L100.0100 #### [facility] [address] [place], [address] Hemoglobin (Bld) [Mass/Vol] 10.3 g/dL Low 13.0-16.5 [facility] Comment on above: Performed By: #### L 500.2500, L300.3900, L501.5200, L500.4100, L100.0100 #### [facility] [address] [place], [address] IG% 1.000 High 0.0-0.9 [facility] Comment on above: Result Comment: IG% - Immature Granulocytes (promyelocytes, myelocytes and metamyelocytes) > 1% indicates that a LEFT SHIFT is Present. Performed By: #### L 500.2500, L300.3900, L501.5200, L500.4100, L100.0100 #### [facility] [address] [place], [address] Lymphocytes/100 WBC (Bld) 5.5 % Low 19-41 [facility] Comment on above: Performed By: #### L 500.2500, L300.3900, L501.5200, L500.4100, L100.0100 #### [facility] [address] [place], [address] MCH (RBC) [Entitic mass] 29.6 pg Normal 27.0-32.0 [facility] Comment on above: Performed By: #### L 500.2500, L300.3900, L501.5200, L500.4100, L100.0100 #### [facility] [address] [place], [address] MCHC (RBC) [Mass/Vol] 34.6 g/dL Normal 32-36 [facility] Comment on above: Performed By: #### L 500.2500, L300.3900, L501.5200, L500.4100, L100.0100 #### [facility] [address] [place], [address] MCV (RBC) [Entitic vol] 85.6 fL Normal 80-94 [facility] Comment on above: Performed By: #### L 500.2500, L300.3900, L501.5200, L500.4100, L100.0100 #### [facility] [address] [place], [address] Monocytes/100 WBC (Bld) 12.3 % High 0-10 [facility] Comment on above: Performed By: #### L 500.2500, L300.3900, L501.5200, L500.4100, L100.0100 #### [facility] [address] [place], [address] Neutrophils/100 WBC (Bld) 80.3 % High 47-70 [facility] Comment on above: Performed By: #### L 500.2500, L300.3900, L501.5200, L500.4100, L100.0100 #### [facility] [address] [place], [address] Nucleated RBC (Bld) [#/Vol] 0 10*3/uL Normal 0-5 [facility] Comment on above: Performed By: #### L 500.2500, L300.3900, L501.5200, L500.4100, L100.0100 #### [facility] [address] [place], [address] Platelet mean volume (Bld) [Entitic vol] 9.5 fL Normal 6.2-12.0 [facility] Comment on above: Performed By: #### L 500.2500, L300.3900, L501.5200, L500.4100, L100.0100 #### [facility] [address] [place], [address] Platelets (Bld) [#/Vol] 242 10*3/uL Normal 150-450 [facility] Comment on above: Performed By: #### L 500.2500, L300.3900, L501.5200, L500.4100, L100.0100 #### [facility] [address] [place], [address] RBC (Bld) [#/Vol] 3.48 10*6/uL Low 4.6-6.2 [facility] Comment on above: Performed By: #### L 500.2500, L300.3900, L501.5200, L500.4100, L100.0100 #### [facility] [address] [place], [address] RDW SD 45.9 fl High 35.1-43.9 [facility] Comment on above: Performed By: #### L 500.2500, L300.3900, L501.5200, L500.4100, L100.0100 #### [facility] [address] [place], [address] WBC (Bld) [#/Vol] 8.7 10*3/uL Normal 4.4-11.0 [facility] Comment on above: Performed By: #### L 500.2500, L300.3900, L501.5200, L500.4100, L100.0100 #### [facility] [address] [place], [address] Calculated very low density lipoprotein (VLDL) cholesterol measurementOrdered By: Shannan Patterson on 11-16-2024 Calculated very low density lipoprotein (VLDL) cholesterol measurement 10 mg/dL 5-40 [facility] Echocardiogram study reportO rdered By: Jose Alberto Swann on 11-16-2024 Study report [facility] [place] [address] Echo Complete 11/16/24 1529 MR#: [id number] Acct: [id number] Name: PHILLY JOEL Rep #:[id number] : 1940 84 From: Jose Alberto Sanchez Attending Dr: Dr. Luca Yeh, DO Status: ADM IN Ordering Dr: Shannan Patterson MD Date: Location: [facility] Sex: M C Admitted: 11/15/24 Reason For Study Reason For Study: TIA/CVA Procedure This was a 2D Doppler, Color Flow transthoracic echocardiogram. Technically difficult study, echo done with patient sitting at 90 degrees. Patient could not tolerate pedoff probe. Exam performed portable in patient room. Left Ventricle Normal LV size. Left ventricular systolic function is normal. Stage 1 diastolic dysfunction. The left ventricular ejection fraction is 60 %. No regional wall motion abnormalities noted. Right Ventricle Normal RV size. Normal systolic function. Tricuspid Valve Normal tricuspid valve. Mild (1+) tricuspid valve insufficiency. Pulmonary artery systolic pressure is 35 mmHg. Aortic Valve Trisinus/trileaflet aortic valve. Moderate focal aortic valve calcification. Peak aortic valve gradient 91 mmHg. Mean aortic valve gradient 53 mmHg. Severe aortic stenosis. Mild (1+) aortic valve insufficiency. MMode/2D Measurements & Calculations LVIDd: 6.1 cm IVSd: 1.1 cm LVOT diam: 2.1 cm LVIDs: 3.4 cm LVPWd: 0.93 cm LVOT area: 3.4 cm2 RVDd: 4.3 cm FS: 43.9 % LAV(MOD-bp): 116.8 ml LA A4 area: 32.8 cm2 LA dimension(2D): 4.1 cm LAV(MOD-bp) Indexed: 52.9 ml/m2 LAV(MOD-sp2): 103.4 ml LAV(MOD-sp4): 111.7 ml RA A4 area: 16.5 cm2 Time Measurements MV dec time: 0.33 sec Doppler Measurements & Calculations MV E max shelli: 58.2 cm/sec Lat Peak E' Shelli: 12.9 cm/sec Med Peak E' Shelli: 6.5 cm/sec MV A max shelli: 99.2 cm/sec E/E' lat: 4.5 E/E' med: 9.0 MV E/A: 0.59 MV V2 max: 102.9 cm/sec MV P1/2t max shelli: 81.5 cm/sec Ao V2 max: 478.0 cm/sec MV max P.2 mmHg MV P1/2t: 130.7 msec Ao max P.4 mmHg MV V2 mean: 53.4 cm/sec MV dec slope: 182.7 cm/sec2 Ao V2 mean: 341.6 cm/sec MV mean P.3 mmHg Ao mean P.7 mmHg MV V2 VTI: 36.1 cm MVA(P1/2t): 1.7 cm2 Ao V2 VTI: 114.0 cm MVA(VTI): 3.0 cm2 AV (velocity ratio): 0.27 CJ(I,D): 0.94 cm2 CJ(V,D): 0.82 cm2 AI max shelli: 366.9 cm/sec LV V1 max: 114.7 cm/sec SV(LVOT): 106.9 ml AI max P.8 mmHg LV V1 max P.3 mmHg AI dec slope: 213.3 cm/sec2 LV V1 mean P.3 mmHg AI P1/2t: 503.9 msec LV V1 mean: 85.9 cm/sec LV V1 VTI: 31.2 cm TR max shelli: 283.4 cm/sec TR max P.1 mmHg ECHO/Echo Complete Interpretation Summary Normal LV size. Left ventricular systolic function is normal. Stage 1 diastolic dysfunction. The left ventricular ejection fraction is 60 %. Mean aortic valve gradient 53 mmHg. Moderate focal aortic valve calcification. Severe aortic stenosis. Ordering Physician: Shannan Patterson Performed By: Carmine Florian RCS 11/16/24 1704 Date _ Jose Alberto Swann MD CC: Dr. Guilherme Fallon MD; Dr. Luca Yeh DO; Dr. Shannan Patterson MD ~ Date Dictated: 11/16/24 1529 Date Transcribed: 11/16/24 170 General Forecaster: Signed [facility] Work Phone: Hemoglobin A1con 11-16-2024 HbA1c (Bld) [Mass fraction] 5.2 % Normal <=5.6 [facility] Comment on above: Result Comment: Norm al < 5.7 % Prediabetic 5.7 - 6.4 % Diabetic >or= 6.5 % Please note range changes. Performed By: #### L 500.2500, L300.3900, L501.5200, L500.4100, L100.0100 #### [facility] [address] [place], [place], [id number] Hemoglobin A1c percentageOrd ered By: Shannan Patterson on 11-16-2024 HbA1c (Bld) [Mass fraction] 5.2 % <5.7 [facility] Comment on above: Normal < 5.7 % Predi abetic 5.7 - 6.4 % Diabetic >or= 6.5 % Please note range changes. International normalized rat io (INR) calculationOrdered By: Shannan Patterson on 11-16-2024 INR Coag (Bld) [Relative time] 1.3 {INR} [facility] LDL calc ser/plasOrdered By: Shannan Patterson on 11-16-2024 Cholesterol in LDL [Mass/Vol] 54 mg/dL [facility] Comment on above: Hlodninjor=385-055 m g/dL & Higher Anwh=407 mg/dL or greater Lipid Profileon 11-16-2024 CHOL:HDL 3.33 Normal [facility] Comment on above: Order Comment: Comme nts: NPO at [place] prior to lipid panel Performed By: #### L 500.2500, L300.3900, L501.5200, L500.4100, L100.0100 #### [facility] [address] [place], [address] Cholesterol [Mass/Vol] 91 mg/dL Normal <=200 [facility] Comment on above: Order Comment: Comme nts: NPO at [place] prior to lipid panel Result Comment: Chol esterol level, Desirable <200 mg/dL Borderline high cholesterol 200-239 mg/dL High cholesterol >=240 mg/dL Recommendations of the NCEP Adult Treatment Panel for the following risk-cutoff thresholds for the [place] population. Performed By: #### L 500.2500, L300.3900, L501.5200, L500.4100, L100.0100 #### [facility] [address] [place], [address] Cholesterol in HDL [Mass/Vol] 27 mg/dL Low [facility] Comment on above: Order Comment: Comme nts: NPO at [place] prior to lipid panel Result Comment: Wilma onal Cholesterol Education Program (NCEP) guidelines: <40 mg/dL: Low HDL-cholesterol (major risk factor for CHD) >= 60 mg/dL: High HDL-cholesterol (negative risk factor for CHD) HDL-cholesterol is affected by a number of factors, e.g. smoking, exercise, hormones, sex and age. Performed By: #### L 500.2500, L300.3900, L501.5200, L500.4100, L100.0100 #### [facility] [address] [place], [address] Cholesterol in LDL [Mass/Vol] 54 mg/dL Normal [facility] Comment on above: Order Comment: Comme nts: NPO at [place] prior to lipid panel Result Comment: Bord tpfjfx=042-340 mg/dL Higher Ddph=971 mg/dL or greater Performed By: #### L 500.2500, L300.3900, L501.5200, L500.4100, L100.0100 #### [facility] [address] [place], [address] Cholesterol in VLDL [Mass/Vol] 10 mg/dL Normal 5-40 [facility] Comment on above: Order Comment: Comme nts: NPO at [place] prior to lipid panel Performed By: #### L 500.2500, L300.3900, L501.5200, L500.4100, L100.0100 #### [facility] [address] [place], [address] Triglyceride [Mass/Vol] 49 mg/dL Normal [facility] Comment on above: Order Comment: Comme nts: NPO at [place] prior to lipid panel Result Comment: The drugs N-Acetylcysteine and Metamizole may falsely depress this assay. Normal range: <150 mg/dL Borderline High: 150-199 mg/dL High: 200-499 mg/dL Very High: >500 mg/dL Performed By: #### L 500.2500, L300.3900, L501.5200, L500.4100, L100.0100 #### [facility] [address] [place], [address] Magnesiumon 11-16-2024 Magnesium [Mass/Vol] 2.0 mg/dL Normal 1.5-2.2 [facility] Comment on above: Order Comment: Comme nts: NPO at [place] prior to lipid panel Performed By: #### L 500.2500, L300.3900, L501.5200, L500.4100, L100.0100 #### [facility] [address] [facility] [place], [address] Magnesium measurement (mass/ volume)Ordered By: Shannan Patterson on 11-16-2024 Magnesium (Unsp spec) [Mass/Vol] 2.0 mg/dL 1.5-2.2 [facility] Magnetic resonance imaging r eportOrdered By: Sushil Castaneda on 11-16-2024 Study report [facility] Imaging Services [address] [place], [place] [address] [phone] Brain without Contrast MR#: [id number] Acct: [id number] Name: PHILLY JOEL Rep #: [id number] : 1940 M 84 From: Pet er Leonel MOSELEY PCP: Dr. Guilherme Fallon MD Status: ADM IN Study:Brain without Contrast Date of Exam: 11/16/24 Exam# [id number] Ordering Dr: Nataliya Patterson MD PROCEDURE: BRAIN WITHOUT CONTRAST 11/16/2024 REASON FOR EXAM: CONCERN FOR CVA TECHNIQUE: BRAIN WITHOUT CONTRAST Multiplanar and multisequence images were obtained. Sequences obtained were according to protocol do to patient preference. COMPARISON: CT brain, November 15, 2024 FINDINGS: Brain: No focal restricted diffusion. Midline structures are unremarkable. Ventricles: Prominent size of the ventricles and sulci is consistent with age related involution. Major Intracranial Vessels: Normal flow voids present Sinuses: Right maxillary sinusitis Mastoids: Left mastoid effusion MRI/Brain without Contrast IMPRESSION: No evidence of restricted diffusion. No acute brain abnormality detected only limited sequences Age-related changes involution Right maxillary sinusitis Reading Location: [facility] CC: Dr. Guilherme Fallon MD; Dr. Shannan Patterson MD ~ General Forecaster: Signed [facility] Prothrombin Time w/INRon INR Coag (PPP) [Relative time] 1.3 {INR} Normal [facility] Comment on above: Performed By: #### L 500.2500, L300.3900, L501.5200, L500.4100, L100.0100 #### [facility] [address] [place], [place], [id number] [phone] PT Coag (PPP) [Time] 15.9 s High 11.7-14.9 [facility] Comment on above: Performed By: #### L 500.2500, L300.3900, L501.5200, L500.4100, L100.0100 #### [facility] [address] [place], [address] Prothrombin timeOrdered By: Shannan Patterson on 11-16-2024 PT Coag (PPP) [Time] 15.9 s High 11.7-14.9 [facility] Screening total cholesterol/ high density lipoprotein (HDL) cholesterol ratioOrdered By: Shannan Patterson on 11-16-2024 Cholesterol.total/Chol esterol in HDL [Mass ratio] 3.33 {ratio} [facility] Serum or plasma cholesterol in HDL measurement (mass/volume)Ordered By: Shannan Patterson on 11-16-2024 Cholesterol in HDL [Mass/Vol] 27 mg/dL Low >40 [facility] Comment on above: National Cholesterol Education Program (NCEP) guidelines:<40 mg/dL: Low HDL-cholesterol (major risk factor for CHD)>= 60 mg/dL: High HDL-cholesterol (negative risk factor for CHD)HDL-cholesterol is affected by a number of factors, e.g. smoking, exercise, hormones, sex and age. Serum or plasma cholesterol measurement (mass/volume)Ordered By: Shannan Patterson on 11-16-2024 Cholesterol [Mass/Vol] 91 mg/dL <201 [facility] Comment on above: Cholesterol level, D esirable <200 mg/dLBorderline high cholesterol 200-239 mg/dLHigh cholesterol >=240 mg/dLRecommendations of the NCEP Adult Treatment Panel for the following risk-cutoff thresholds for the [place] population. Triglycerides measurementOrd ered By: Shannan Patterson on 11-16-2024 Triglyceride [Mass/Vol] 49 mg/dL <199 [facility] Comment on above: The drugs N-Acetylcy steine and Metamizole may falsely depress this assay. Normal range: <150 mg/dLBorderline High: 150-199 mg/dLHigh: 200-499 mg/dLVery High: >500 mg/dL Absolute lymphocyte countOrd ered By: Dina Guzmán on 11-15-2024 Lymphocytes Auto (Unsp spec) [#/Vol] 0.67 10*3/uL Low 0.83-4.51 [facility] Absolute neutrophil countOrd ered By: Dina Guzmán on 11-15-2024 Neutrophils (Bld) [#/Vol] 8.2 10*3/uL High 2.0-7.7 [facility] Anion gap in Serum or Plasma Ordered By: Dina Guzmán on 11-15-2024 Anion gap [Moles/Vol] 13 mmol/L 5-15 [facility] Automated lymphocyte count a s percentage of total leukocytesOrdered By: Dinachance Guzmán on 11-15-2024 Lymphocytes/100 WBC Auto (Unsp spec) 6.4 % Low 19-41 [facility] BUN/creatinine ratioOrdered By: Dina Guzmán on 11-15-2024 Urea nitrogen/Creatinine [Mass ratio] 25.5 mg/mg High 10-20 [facility] Basic Metabolic Profile (BMP )on 11-15-2024 BUN/CRE 27.9 RATIO High 10- [facility] Comment on above: Performed By: #### L 500.2500, L300.3900, L501.5200, L500.4100, L100.0100 #### [facility] [address] [place], [address] Calcium [Mass/Vol] 8.0 mg/dL Normal 7.6-11.0 [facility] Comment on above: Performed By: #### L 500.2500, L300.3900, L501.5200, L500.4100, L100.0100 #### [facility] [address] [place], [address] Chloride [Moles/Vol] 96 mmol/L Low 98-108 [facility] Comment on above: Performed By: #### L 500.2500, L300.3900, L501.5200, L500.4100, L100.0100 #### [facility] [address] [place], [address] CO2 [Moles/Vol] 22.7 mmol/L Normal 21.0-32.0 [facility] Comment on above: Performed By: #### L 500.2500, L300.3900, L501.5200, L500.4100, L100.0100 #### [facility] [address] [place], [address] Creatinine [Mass/Vol] 0.79 mg/dL Normal 0.70-1.20 [facility] Comment on above: Performed By: #### L 500.2500, L300.3900, L501.5200, L500.4100, L100.0100 #### [facility] [address] [place], [address] ECRCL 78.49 ml/min Normal 50-250 [facility] Comment on above: Performed By: #### L 500.2500, L300.3900, L501.5200, L500.4100, L100.0100 #### [facility] [address] [place], [address] GAP 9 Normal 5-15 [facility] Comment on above: Performed By: #### L 500.2500, L300.3900, L501.5200, L500.4100, L100.0100 #### [facility] [address] [place], [address] GFR/1.73 sq M.predicted among non-blacks MDRD (S/P/Bld) [Vol rate/Area] 87 mL/min/{1.73_m2} Normal >60 [facility] Comment on above: Result Comment: mL/m in/1.73m2 CKD-EPI Creatinine Equation (2020) Performed By: #### L 500.2500, L300.3900, L501.5200, L500.4100, L100.0100 #### [facility] [address] [place], [address] Glucose [Mass/Vol] 149 mg/dL High 70-99 [facility] Comment on above: Performed By: #### L 500.2500, L300.3900, L501.5200, L500.4100, L100.0100 #### [facility] [address] [place], [address] Potassium [Moles/Vol] 4.0 mmol/L Normal 3.3-5.1 [facility] Comment on above: Performed By: #### L 500.2500, L300.3900, L501.5200, L500.4100, L100.0100 #### [facility] [address] [place], [address] Sodium [Moles/Vol] 127 mmol/L Low 133-145 [facility] Comment on above: Performed By: #### L 500.2500, L300.3900, L501.5200, L500.4100, L100.0100 #### [facility] [address] [place], [address] Urea nitrogen [Mass/Vol] 22 mg/dL High 4-19 [facility] Comment on above: Performed By: #### L 500.2500, L300.3900, L501.5200, L500.4100, L100.0100 #### [facility] [address] [place], [address] BUN/CRE 25.9 RATIO High 10-20 [facility] Comment on above: Performed By: #### L 500.2500, L300.3900, L501.5200, L500.4100, L100.0100 #### [facility] [address] [place], [address] Calcium [Mass/Vol] 8.4 mg/dL Normal 7.6-11.0 [facility] Comment on above: Performed By: #### L 500.2500, L300.3900, L501.5200, L500.4100, L100.0100 #### [facility] [address] [place], [address] Chloride [Moles/Vol] 93 mmol/L Low 98-108 [facility] Comment on above: Performed By: #### L 500.2500, L300.3900, L501.5200, L500.4100, L100.0100 #### [facility] [address] [place], [address] CO2 [Moles/Vol] 26.1 mmol/L Normal 21.0-32.0 [facility] Comment on above: Performed By: #### L 500.2500, L300.3900, L501.5200, L500.4100, L100.0100 #### [facility] [address] [place], [address] Creatinine [Mass/Vol] 0.82 mg/dL Normal 0.70-1.20 [facility] Comment on above: Performed By: #### L 500.2500, L300.3900, L501.5200, L500.4100, L100.0100 #### [facility] [address] [place], [address] ECRCL 76.58 ml/min Normal 50-250 [facility] Comment on above: Performed By: #### L 500.2500, L300.3900, L501.5200, L500.4100, L100.0100 #### [facility] [address] [place], [address] GAP 9 Normal 5-15 [facility] Comment on above: Performed By: #### L 500.2500, L300.3900, L501.5200, L500.4100, L100.0100 #### [facility] [address] [place], [address] GFR/1.73 sq M.predicted among non-blacks MDRD (S/P/Bld) [Vol rate/Area] 86 mL/min/{1.73_m2} Normal >60 [facility] Comment on above: Result Comment: mL/m in/1.73m2 CKD-EPI Creatinine Equation (2020) Performed By: #### L 500.2500, L300.3900, L501.5200, L500.4100, L100.0100 #### [facility] [address] [place], [address] Glucose [Mass/Vol] 124 mg/dL High 70-99 [facility] Comment on above: Performed By: #### L 500.2500, L300.3900, L501.5200, L500.4100, L100.0100 #### [facility] [address] [place], [address] Potassium [Moles/Vol] 4.2 mmol/L Normal 3.3-5.1 [facility] Comment on above: Performed By: #### L 500.2500, L300.3900, L501.5200, L500.4100, L100.0100 #### [facility] [address] [place], [address] Sodium [Moles/Vol] 128 mmol/L Low 133-145 [facility] Comment on above: Performed By: #### L 500.2500, L300.3900, L501.5200, L500.4100, L100.0100 #### [facility] [address] [place], [address] Urea nitrogen [Mass/Vol] 21 mg/dL High 4-19 [facility] Comment on above: Performed By: #### L 500.2500, L300.3900, L501.5200, L500.4100, L100.0100 #### [facility] [address] [place], [address] BUN/CRE 25.5 RATIO High 10-20 [facility] Comment on above: Performed By: #### L 500.2500, L100.0100 #### [facility] [address] [place], [address] Calcium [Mass/Vol] 8.9 mg/dL Normal 7.6-11.0 [facility] Comment on above: Performed By: #### L 500.2500, L100.0100 #### [facility] [address] [place], [address] Chloride [Moles/Vol] 92 mmol/L Low 98-108 [facility] Comment on above: Performed By: #### L 500.2500, L100.0100 #### [facility] [address] [place], [address] CO2 [Moles/Vol] 21.0 mmol/L Normal 21.0-32.0 [facility] Comment on above: Performed By: #### L 500.2500, L100.0100 #### [facility] [address] [place], [address] Creatinine [Mass/Vol] 0.79 mg/dL Normal 0.70-1.20 [facility] Comment on above: Performed By: #### L 500.2500, L100.0100 #### [facility] [address] [place], [address] GAP 13 Normal 5-15 [facility] Comment on above: Performed By: #### L 500.2500, L100.0100 #### [facility] [address] [place], [address] GFR/1.73 sq M.predicted among non-blacks MDRD (S/P/Bld) [Vol rate/Area] 87 mL/min/{1.73_m2} Normal >60 [facility] Comment on above: Result Comment: mL/m in/1.73m2 CKD-EPI Creatinine Equation (2020) Performed By: #### L 500.2500, L100.0100 #### [facility] [address] [place], [address] Glucose [Mass/Vol] 86 mg/dL Normal 70-99 [facility] Comment on above: Performed By: #### L 500.2500, L100.0100 #### [facility] [address] [place], [address] Potassium [Moles/Vol] 4.4 mmol/L Normal 3.3-5.1 [facility] Comment on above: Result Comment: Hemo lysis present, Results??could be affected. ?? Performed By: #### L 500.2500, L100.0100 #### [facility] [address] [place], [address] Sodium [Moles/Vol] 126 mmol/L Low 133-145 [facility] Comment on above: Performed By: #### L 500.2500, L100.0100 #### [facility] [address] [place], [address] Urea nitrogen [Mass/Vol] 20 mg/dL High 4-19 [facility] Comment on above: Performed By: #### L 500.2500, L100.0100 #### [facility] [address] [place], [address] Basophil percentageOrdered B y: Dina Guzmán on 11-15-2024 Basophils/100 WBC (Bld) 0.2 % 0-1 [facility] Bilirubin Test strip Ql (U)O rdered By: Dina Guzmán on 11-15-2024 Bilirubin Ql (U) Negative Negative [facility] Blood cultureOrdered By: Radha Patterson on 11-15-2024 Bacteria identified Cx Nom (Bld) Strep anginosus Abnormal [facility] Brain/Head without Contrasto n 11-15-2024 Brain/Head without Contrast [facility] Imaging Services [address] [place] [address] Brain/Head without Contrast MR#: [id number] Acct: [id number] Name: PHILLY JOEL Rep #: [id number] : 1940 M 84 From: Michela Holt nd, MD PCP: Dr. Guilherme Fallon MD Status: ADM IN Study: Brain/Head without Contrast Date of Exam: 11/04 Exam# [id number] Ordering Dr: Dina Guzmán EXAM: BRAIN/HEAD WITHOUT CONTRAST CLINICAL HISTORY: 84 y/o M with WEAKNESS. COMPARISON: None. TECHNIQUE: Routine CT imaging of the head without IV contrast. Additional multiplanar reformats were obtained. Dose reduction techniques were used including intermediate exposure control (AEC),iterative reconstruction technique, and/or mA and/or KV dose adjustments based on patient's size. FINDINGS: Mild generalized cerebral volume loss concordant prominence of the ventricles and subarachnoid spaces. There is no evidence of acute intracranial hemorrhage or herniation. There is no midline shift or extra-axial collection. Moderate patchy supratentorial white matter hypodensities. The menendez and white matter interfaces are otherwise maintained. Prior ocular lens replacements. Complete opacification of the right maxillary sinus. Left mastoid effusion. The visualized paranasal sinuses and mastoids are unremarkable. No acute calvarial fracture or scalp hematoma. CT/Brain/Head without Contrast IMPRESSION: No acute intracranial finding. Reading Location: [id number] CC: Dr. Guilherme Fallon MD; JOLIE Ibarra General Forecaster: Signed Normal [facility] CBC W/Diff, Automatedon 07-0 Absolute Lymph 0.67 X10 3/uL Low 0.83-4.51 [facility] Comment on above: Performed By: #### L 500.2500, L100.0100 #### [facility] [address] [place], [address] Absolute Neut 8.2 X10 3/uL High 2.0-7.7 [facility] Comment on above: Performed By: #### L 500.2500, L100.0100 #### [facility] [address] [facility] [place], [address] Basophils/100 WBC (Bld) 0.2 % Normal 0-1 [facility] Comment on above: Performed By: #### L 500.2500, L100.0100 #### [facility] [address] [facility] [place], [address] Eosinophils/100 WBC (Bld) 0.2 % Normal 0-5 [facility] Comment on above: Performed By: #### L 500.2500, L100.0100 #### [facility] [address] [place], [address] Erythrocyte distribution width (RBC) [Ratio] 14.8 % High 11.6-14.6 [facility] Comment on above: Performed By: #### L 500.2500, L100.0100 #### [facility] [address] [place], [address] Hematocrit (Bld) [Volume fraction] 38.3 % Low 40-54 [facility] Comment on above: Performed By: #### L 500.2500, L100.0100 #### [facility] [address] [place], [address] Hemoglobin (Bld) [Mass/Vol] 12.5 g/dL Low 13.0-16.5 [facility] Comment on above: Performed By: #### L 500.2500, L100.0100 #### [facility] [address] [place], [address] IG% 1.300 High 0.0-0.9 [facility] Comment on above: Result Comment: IG% - Immature Granulocytes (promyelocytes, myelocytes and metamyelocytes) > 1% indicates that a LEFT SHIFT is Present. Performed By: #### L 500.2500, L100.0100 #### [facility] [address] [place], [address] Lymphocytes/100 WBC (Bld) 6.4 % Low 19-41 [facility] Comment on above: Performed By: #### L 500.2500, L100.0100 #### [facility] [address] [place], [address] MCH (RBC) [Entitic mass] 29.1 pg Normal 27.0-32.0 [facility] Comment on above: Performed By: #### L 500.2500, L100.0100 #### [facility] [address] [place], [address] MCHC (RBC) [Mass/Vol] 32.6 g/dL Normal 32-36 [facility] Comment on above: Performed By: #### L 500.2500, L100.0100 #### [facility] [address] [place], [address] MCV (RBC) [Entitic vol] 89.1 fL Normal 80-94 [facility] Comment on above: Performed By: #### L 500.2500, L100.0100 #### [facility] [address] [place], [address] Monocytes/100 WBC (Bld) 13.6 % High 0-10 [facility] Comment on above: Performed By: #### L 500.2500, L100.0100 #### [facility] [address] [place], [address] Neutrophils/100 WBC (Bld) 78.3 % High 47-70 [facility] Comment on above: Performed By: #### L 500.2500, L100.0100 #### [facility] [address] [place], [address] Nucleated RBC (Bld) [#/Vol] 0 10*3/uL Normal 0-5 [facility] Comment on above: Performed By: #### L 500.2500, L100.0100 #### [facility] [address] [place], [address] Platelet mean volume (Bld) [Entitic vol] 9.5 fL Normal 6.2-12.0 [facility] Comment on above: Performed By: #### L 500.2500, L100.0100 #### [facility] [address] [place], [address] Platelets (Bld) [#/Vol] 237 10*3/uL Normal 150-450 [facility] Comment on above: Performed By: #### L 500.2500, L100.0100 #### [facility] [address] [place], [address] RBC (Bld) [#/Vol] 4.30 10*6/uL Low 4.6-6.2 [facility] Comment on above: Performed By: #### L 500.2500, L100.0100 #### [facility] [address] [place], [address] RDW SD 48.0 fl High 35.1-43.9 [facility] Comment on above: Performed By: #### L 500.2500, L100.0100 #### [facility] [address] [place], [address] WBC (Bld) [#/Vol] 10.5 10*3/uL Normal 4.4-11.0 [facility] Comment on above: Performed By: #### L 500.2500, L100.0100 #### [facility] [address] [place], [address] Carbon dioxide, total [Moles /volume] in Central venous bloodOrdered By: Dina Guzmán on 11-15-2024 CO2 [Moles/Vol] 21.0 mmol/L 21.0-32.0 [facility] Chest 1 View (Portable)on Chest 1 View (Portable) [facility] Imaging Services [address] [place] [address] Chest 1 View (Portable) MR#: [id number] Acct: [id number] Name: PHILLY JOEL Rep #: [id number] : 1940 M 84 From: Sushil Castaneda DO PCP: Dr. Guilherme Fallon MD Status: ADM IN Study: Chest 1 View (Portable) Date of Exam: 11/15/24 Exam# [id number] Ordering Dr: Shannan Patterson MD PROCEDURE: CHEST 1 VIEW (PORTABLE) 11/15/2024 REASON FOR EXAM: ELEVATED PROBNP TECHNIQUE: Frontal view of the chest. COMPARISON: None. FINDINGS: Hardware: EKG lead wires. Heart: Normal size. Lungs: Scattered chronic appearing pleural-parenchymal changes. No pulmonary venous congestion. No pleural effusions. No definite evidence of heart failure. Bones: No aggressive process identified. Other: RAD/Chest 1 View (Portable) IMPRESSION: No radiographic evidence of an acute cardiopulmonary process. Reading [facility] CC: Dr. Guilherme Fallon MD; Dr. Shannan Patterson MD General Forecaster: Signed Normal [facility] Chloride assayOrdered By: Colleen Guzmán on 11-15-2024 Chloride [Moles/Vol] 92 mmol/L Low 98-108 [facility] Creatinine, Urine (random)on 11-15-2024 UR CREAT 121.00 mg/dL Normal 39.00-259. 00 [facility] Comment on above: Performed By: #### L 500.2500, L300.3900, L501.5200, L500.4100, L100.0100 #### [facility] [address] [place], [address] Echo Completeon 11-15-2024 Echo Complete [facility] Cardiovascular Services [address] [facility] [place] [address] Echo Complete 11/16/24 1529 MR#: [id number] Acct: [id number] Name: PHILLY JOEL Rep #: [id number] : 1940 84 From: Jose Alberto Swann MD Attending Dr: Dr. Luca Yeh, DO Status: A DM IN Ordering Dr: Shannan Patterson MD Date: 11/15/24 Location: U Sex: M C Admitted: 11/15/24 Reason For Study Reason For Study: TIA/CVA Procedure This was a 2D Doppler, Color Flow transthoracic echocardiogram. Technically difficult study, echo done with patient sitting at 90 degrees. Patient could not tolerate pedoff probe. Exam performed portable in patient room. Left Ventricle Normal LV size. Left ventricular systolic function is normal. Stage 1 diastolic dysfunction. The left ventricular ejection fraction is 60 %. No regional wall motion abnormalities noted. Right Ventricle Normal RV size. Normal systolic function. Tricuspid Valve Normal tricuspid valve. Mild (1+) tricuspid valve insufficiency. Pulmonary artery systolic pressure is 35 mmHg. Aortic Valve Trisinus/trileaflet aortic valve. Moderate focal aortic valve calcification. Peak aortic valve gradient 91 mmHg. Mean aortic valve gradient 53 mmHg. Severe aortic stenosis. Mild (1+) aortic valve insufficiency. MMode/2D Measurements Calculations LVIDd: 6.1 cm IVSd: 1.1 cm LVOT diam: 2.1 cm LVIDs: 3.4 cm LVPWd: 0.93 cm LVOT area: 3.4 cm2 RVDd: 4.3 cm FS: 43.9 % LAV(MOD-bp): 116.8 ml LA A4 area: 32.8 cm2 LA dimension(2D): 4.1 cm LAV(MOD-bp) Indexed: 52.9 ml/m2 LAV(MOD-sp2): 103.4 ml LAV(MOD-sp4): 111.7 ml RA A4 area: 16.5 cm2 Time Measurements MV dec time: 0.33 sec Doppler Measurements Calculations MV E max shelli: 58.2 cm/sec Lat Peak E' Shelli: 12.9 cm/sec Med Peak E' Shelli: 6.5 cm/sec MV A max shelli: 99.2 cm/sec E/E' lat: 4.5 E/E' med: 9.0 MV E/A: 0.59 MV V2 max: 102.9 cm/sec MV P1/2t max shelli: 81.5 cm/sec Ao V2 max: 478.0 cm/sec MV max P.2 mmHg MV P1/2t: 130.7 msec Ao max P.4 mmHg MV V2 mean: 53.4 cm/sec MV dec slope: 182.7 cm/sec2 Ao V2 mean: 341.6 cm/sec MV mean P.3 mmHg Ao mean P.7 mmHg MV V2 VTI: 36.1 cm MVA(P1/2t): 1.7 cm2 Ao V2 VTI: 114.0 cm MVA(VTI): 3.0 cm2 AV (velocity ratio): 0.27 CJ(I,D): 0.94 cm2 CJ(V,D): 0.82 cm2 AI max shelli: 366.9 cm/sec LV V1 max: 114.7 cm/sec SV(LVOT): 106.9 ml AI max P.8 mmHg LV V1 max P.3 mmHg AI dec slope: 213.3 cm/sec2 LV V1 mean P.3 mmHg AI P1/2t: 503.9 msec LV V1 mean: 85.9 cm/sec LV V1 VTI: 31.2 cm TR max shelli: 283.4 cm/sec TR max P.1 mmHg ECHO/Echo Complete Interpretation Summary Normal LV size. Left ventricular systolic function is normal. Stage 1 diastolic dysfunction. The left ventricular ejection fraction is 60 %. Mean aortic valve gradient 53 mmHg. Moderate focal aortic valve calcification. Severe aortic stenosis. Ordering Physician: Shannan Patterson Performed By: Carmine Florian RCS 11/16/241703 Date Jose Alberto Swann MD CC: Dr. Guilherme Fallon MD; Dr. Luca Yeh DO; Dr. Shannan Patterson MD Date Dictated: 11/16/24 1529 Date Transcribed: 11/16/24 170 General Forecaster: Signed Normal [facility] Emergency Department Summary on 11-15-2024 Emergency Department Summary [facility] Medical Records Department [address] [place] [address] Emergency Department Summary 11/15/24 MR#: [id number] Acct: [id number] Name: PHILLY JOEL Rep #: [id number] : 1940 84 From: Chetan Mata MD PCP: Dr. Guilherme Fallon MD Status:ADM IN Location: [place] [address] HPI History of Present Illness Chief Complaint: Weakness Narrative Narrative: 84-year-old male with past medical history of hypertension presents with generalized weakness. He lives alone in an apartment. Normally he has a home health aide but she has been gone for several days. He states on November [address] to do errands and after getting out of his car he was standing with his cane and was too weak to walk and fell scraping his left elbow. No head injury. He called EMS for lift assist into his apartment. He has not been able to get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 lucency. No evidence of complication. 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 Signed by: Sushil Mcclellan 04/17/2024 11:38 AM Dictation workstation: [id number] [facility] No Panel Informationon 02-19 Interpreted By: Mary White ud, STUDY: XR FEMUR LEFT 2+ VIEWS; XR PELVIS 1-2 VIEWS; 02/19/2024 3:20 pm INDICATION: Signs/Symptoms:post-op. COMPARISON: 01/27/2024 ACCESSION NUMBER(S): [id number]; [id number] ORDERING CLINICIAN: KATIANA BRAGG FINDINGS: Status post lateral plate and [...] Mary Agustin 02/20/2024 7:44 PM Dictation workstation: [id number] Alaina Gavin MD - 02/20/2024 Interpreted By: Mary Agustin, STUDY: XR FEMUR LEFT 2+ VIEWS; XR PELVIS 1-2 VIEWS; 02/19/2024 3:20 pm INDICATION: Signs/Symptoms:post-op. COMPARISON: 01/27/2024 ACCESSION NUMBER(S): [id number]; [id number] ORDERING CLINICIAN: KATIANA BRAGG FINDINGS: Status post lateral plate and [...] Mary Agustin 02/20/2024 7:44 PM Dictation workstation: [id number] [facility] Work Phone: No Panel InformationOrdered By: Alaina Agustin on 02-20-2024 [facility] Work Phone: No Panel Informationon 02-18 Radiology Study observation (narrative) [facility] Work Phone: XR FEMUR LEFT 2+ VIEWSon XR FEMUR LEFT 2+ VIEWS Interpreted By: Mary Kathleen, STUDY: XR FEMUR LEFT 2+ VIEWS; XR PELVIS 1-2 VIEWS; 02/19/2024 3:20 pm INDICATION: Signs/Symptoms:post-op. COMPARISON: 01/27/2024 ACCESSION NUMBER(S): [id number]; [id number] ORDERING CLINICIAN: KATIANA BRAGG FINDINGS: Status post lateral plate and [...] Mary Agustin 02/20/2024 7:44 PM Dictation workstation: [id number] [facility] XR PELVIS 1-2 VIEWSon 2023 XR PELVIS 1-2 VIEWS Interpreted By: Mary White ud, STUDY: XR FEMUR LEFT 2+ VIEWS; XR PELVIS 1-2 VIEWS; 02/19/2024 3:20 pm INDICATION: Signs/Symptoms:post-op. COMPARISON: 01/27/2024 ACCESSION NUMBER(S): [id number]; [id number] ORDERING CLINICIAN: KATIANA BRAGG FINDINGS: Status post lateral plate and [...] Mary Agustin 02/20/2024 7:44 PM Dictation workstation: [id number] [facility] Comment on above: Order Comment: WB AP pelvis CBC panel Auto (Bld)on 01-30 Erythrocyte distribution width (RBC) [Ratio] 13.0 % 11.5 - 14.5 % [facility] Hematocrit (Bld) [Volume fraction] 30.4 % Low 41.0 - 52.0 % [facility] Hemoglobin (Bld) [Mass/Vol] 9.9 g/dL Low 13.5 - 17.5 g/dL [facility] Interpretation and review of laboratory results Abnormal [facility] MCH (RBC) [Entitic mass] 29.1 pg 26.0 - 34.0 pg [facility] MCHC (RBC) [Mass/Vol] 32.6 g/dL 32.0 - 36.0 g/dL [facility] MCV (RBC) [Entitic vol] 89 fL 80 - 100 fL [facility] Nucleated RBC/100 WBC (Bld) [Ratio] 0.0 % [facility] Platelets (Bld) [#/Vol] 236 10*3/uL [facility] RBC (Bld) [#/Vol] 3.40 10*6/uL Low [facility] WBC (Bld) [#/Vol] 5.9 10*3/uL [facility] Erythrocyte distribution width (RBC) [Ratio] 13.0 % Normal 11.5-14.5 [facility] Comment on above: Performed By: #### V ERAB #### CARIN Webb ([id number]) [facility] ([facility]) [address] [place] [address] Hematocrit (Bld) [Volume fraction] 30.4 % Low 41.0-52.0 [facility] Comment on above: Performed By: #### V ERAB #### CARIN Webb ([id number]) [facility] ([facility]) [address] [place] [address] Hemoglobin (Bld) [Mass/Vol] 9.9 g/dL Low 13.5-17.5 [facility] Comment on above: Performed By: #### V ERAB #### CARIN Webb ([id number]) [facility] ([facility]) [address] [place] [address] MCH (RBC) [Entitic mass] 29.1 pg Normal 26.0-34.0 [facility] Comment on above: Performed By: #### V ERAB #### CARIN Webb ([id number]) [facility] ([facility]) [address] [place] [address] MCHC (RBC) [Mass/Vol] 32.6 g/dL Normal 32.0-36.0 [facility] Comment on above: Performed By: #### V ERAB #### CARIN Webb ([id number]) [facility] ([facility]) [address] [place] [address] MCV (RBC) [Entitic vol] 89 fL Normal 80-100 [facility] Comment on above: Performed By: #### V ERAB #### CARIN Webb ([id number]) [facility] ([facility]) [address] [place] [address] Nucleated RBC/100 WBC (Bld) [Ratio] 0.0 /100 WBCs Normal 0.0-0.0 [facility] Comment on above: Performed By: #### Marybeth ERAB #### CARIN Webb ([id number]) [facility] ([facility]) [address] [place] [address] Platelets (Bld) [#/Vol] 236 x10*3/uL Normal 150-450 [facility] Comment on above: Performed By: #### Marybeth ERAB #### CARIN Webb ([id number]) [facility] ([facility]) [address] [place] [address] RBC (Bld) [#/Vol] 3.40 x10*6/uL Low 4.50-5.90 [facility] Comment on above: Performed By: #### Marybeth ERAB #### CARIN Webb ([id number]) [facility] ([facility]) [address] [place] [address] WBC (Bld) [#/Vol] 5.9 x10*3/uL Normal 4.4-11.3 [facility] Comment on above: Performed By: #### Marybeth ERAB #### CARIN Webb ([id number]) [facility] ([facility]) [address] [place] [address] 25-hydroxyvitamin D3 [Mass/V ol]on 01-30-2024 Deficiency: < 20 ng /ml Insufficiency: 20-29 ng/ml Sufficiency: 30-100 ng/ml This assay accurately quantifies the sum of Vitamin D3, 25-Hydroxy and Vitamin D2,25-Hydroxy. [facility] Blood type and Indirect anti body screen panel (Bld)on 01-30-2024 ABO group Nom (Bld) A [facility] Blood group antibody screen Ql Negative [facility] D Ag Ql (Bld) Positive [facility] ABO group Nom (Bld) A Normal [facility] Comment on above: Performed By: #### V ERAB #### CARIN Webb ([id number]) [facility] ([facility]) [address] [place] [address] Blood group antibody screen Ql Negative [facility] Comment on above: Performed By: #### V ERAB #### CARIN Webb ([id number]) [facility] ([facility]) [address] [place] [address] D Ag Ql (Bld) Positive [facility] Comment on above: Performed By: #### V ERAB #### CARIN Webb ([id number]) [facility] ([facility]) [address] [place] [address] CBC panel Auto (Bld)on 01-29 Erythrocyte distribution width (RBC) [Ratio] 13.1 % 11.5 - 14.5 % [facility] Hematocrit (Bld) [Volume fraction] 29.9 % Low 41.0 - 52.0 % [facility] Hemoglobin (Bld) [Mass/Vol] 9.8 g/dL Low 13.5 - 17.5 g/dL [facility] Interpretation and review of laboratory results Abnormal [facility] MCH (RBC) [Entitic mass] 29.1 pg 26.0 - 34.0 pg [facility] MCHC (RBC) [Mass/Vol] 32.8 g/dL 32.0 - 36.0 g/dL [facility] MCV (RBC) [Entitic vol] 89 fL 80 - 100 fL [facility] Nucleated RBC/100 WBC (Bld) [Ratio] 0.0 % [facility] Platelets (Bld) [#/Vol] 219 10*3/uL [facility] RBC (Bld) [#/Vol] 3.37 10*6/uL Low [facility] WBC (Bld) [#/Vol] 5.7 10*3/uL [facility] Erythrocyte distribution width (RBC) [Ratio] 13.1 % Normal 11.5-14.5 [facility] Comment on above: Performed By: #### V ERAB #### CARIN Webb ([id number]) [facility] ([facility]) [address] [place] [address] Hematocrit (Bld) [Volume fraction] 29.9 % Low 41.0-52.0 [facility] Comment on above: Performed By: #### V ERAB #### CARIN Webb ([id number]) [facility] ([facility]) [address] [place] [address] Hemoglobin (Bld) [Mass/Vol] 9.8 g/dL Low 13.5-17.5 [facility] Comment on above: Performed By: #### Marybeth ERAB #### CARIN Webb ([id number]) [facility] ([facility]) [address] [place] [address] MCH (RBC) [Entitic mass] 29.1 pg Normal 26.0-34.0 [facility] Comment on above: Performed By: #### Marybeth ERAB #### CARIN Webb ([id number]) [facility] ([facility]) [address] [place] [address] MCHC (RBC) [Mass/Vol] 32.8 g/dL Normal 32.0-36.0 [facility] Comment on above: Performed By: #### V ERAB #### CARIN Webb ([id number]) [facility] ([facility]) [address] [place] [address] MCV (RBC) [Entitic vol] 89 fL Normal 80-100 [facility] Comment on above: Performed By: #### Marybeth ERAB #### CARIN Webb ([id number]) [facility] ([facility]) [address] [place] [address] Nucleated RBC/100 WBC (Bld) [Ratio] 0.0 /100 WBCs Normal 0.0-0.0 [facility] Comment on above: Performed By: #### V ERAB #### CARIN Webb ([id number]) [facility] ([facility]) [address] [place] [address] Platelets (Bld) [#/Vol] 219 x10*3/uL Normal 150-450 [facility] Comment on above: Performed By: #### V ERAB #### CARIN Webb ([id number]) [facility] ([facility]) [address] [place] [address] RBC (Bld) [#/Vol] 3.37 x10*6/uL Low 4.50-5.90 [facility] Comment on above: Performed By: #### V ERAB #### CARIN Webb ([id number]) [facility] ([facility]) [address] [place] [address] WBC (Bld) [#/Vol] 5.7 x10*3/uL Normal 4.4-11.3 [facility] Comment on above: Performed By: #### V ERAB #### CARIN Webb ([id number]) [facility] ([facility]) [address] [place] [address] Calcidiolon 01-30-2024 25-hydroxyvitamin D3 [Mass/Vol] 33 ng/mL Normal 30-100 [facility] Comment on above: Order Comment: Thi s is for confirming/verifying history of ABORh on file for transfusion of blood products. If this is not for transfusion, please order an ABO/RH [[id number]]. If you have any questions or unsure what to order, please call the blood bank. Performed By: #### V ERAB #### CARIN Webb ([id number]) [facility] ([facility]) [address] [place] [address] Cobalaminson 01-30-2024 Cobalamin (Vitamin B12) [Mass/Vol] 468 pg/mL Normal 211-911 [facility] Comment on above: Performed By: #### V ERAB #### CARIN Webb ([id number]) [facility] ([facility]) [address] [place] [address] No Panel Informationon 01-29 Interpretation and review of laboratory results Normal [facility] Renal function 2000 panelon 01-30-2024 Albumin BCP dye [Mass/Vol] 3.0 g/dL Low 3.4 - 5.0 g/dL [facility] Anion gap [Moles/Vol] 9 mmol/L Low 10 - 2 0 mmol/L [facility] Calcium [Mass/Vol] 8.5 mg/dL Low 8.6 - 10. 6 mg/dL [facility] Chloride [Moles/Vol] 99 mmol/L 98 - 10 7 mmol/L [facility] CO2 [Moles/Vol] 28 mmol/L 21 - 32 mmol/L [facility] Creatinine [Mass/Vol] 0.64 mg/dL 0.50 - 1.30 mg/dL [facility] eGFR - PINF [facility] Comment on above: Calculations of sebastien mated GFR are performed using the 2020 CKD-EPI Study Refit equation without the race variable for the IDMS-Traceable creatinine methods. https://jasn.asnjournals.org/content/early//ASN.57473 28798 Glucose [Mass/Vol] 94 mg/dL 74 - 99 mg/dL [facility] Interpretation and review of laboratory results Abnormal [facility] Phosphate [Mass/Vol] 2.9 mg/dL 2.5 - 4 .9 mg/dL [facility] Comment on above: The performance tripp acteristics of phosphorus testing in heparinized plasma have been validated by the individual laboratory site where testing is performed. Testing on heparinized plasma is not approved by the FDA; however, such approval is not necessary. Potassium [Moles/Vol] 4.3 mmol/L 3.5 - 5.3 mmol/L [facility] Sodium [Moles/Vol] 132 mmol/L Low 136 - 145 mmol/L [facility] Urea nitrogen [Mass/Vol] 15 mg/dL 6 - 23 mg/dL [facility] Albumin BCP dye [Mass/Vol] 3.0 g/dL Low 3.4-5.0 [facility] Comment on above: Performed By: #### V ERAB #### CARIN Webb ([id number]) [facility] ([facility]) [address] [place] [address] Anion gap [Moles/Vol] 9 mmol/L Low 10-20 [facility] Comment on above: Performed By: #### V ERAB #### CARIN Webb ([id number]) [facility] ([facility]) [address] [place] [address] Calcium [Mass/Vol] 8.5 mg/dL Low 8.6-10.6 [facility] Comment on above: Performed By: #### V ERAB #### CARIN Webb ([id number]) [facility] ([facility]) [address] [place] [address] Chloride [Moles/Vol] 99 mmol/L Normal 98-107 [facility] Comment on above: Performed By: #### V ERAB #### CARIN Webb ([id number]) [facility] ([facility]) [address] [place] [address] CO2 [Moles/Vol] 28 mmol/L Normal 21-32 [facility] Comment on above: Performed By: #### V ERAB #### CARIN Webb ([id number]) [facility] ([facility]) [address] [place] [address] Creatinine [Mass/Vol] 0.64 mg/dL Normal 0.50-1.30 [facility] Comment on above: Performed By: #### V ERAB #### CARIN Webb ([id number]) [facility] ([facility]) [address] [place] [address] GFR/1.73 sq M.predicted MDRD (S/P/Bld) [Vol rate/Area] mL/min/{1.73_m2} Normal >60 [facility] Comment on above: Result Comment: Calc ulations of estimated GFR are performed using the 2020 CKD-EPI Study Refit equation without the race variable for the IDMS-Traceable creatinine methods. https://jasn.asnjournals.org/content/early//ASN.45625 75855 Performed By: #### V ERAB #### CARIN Webb ([id number]) [facility] [facility] [address] [place] [address] Glucose [Mass/Vol] 94 mg/dL Normal 74-99 [facility] Comment on above: Performed By: #### V ERAB #### CARIN Webb ([id number]) [facility] ([facility]) [address] [place] [address] Phosphate [Mass/Vol] 2.9 mg/dL Normal 2.5-4.9 [facility] Comment on above: Result Comment: The performance characteristics of phosphorus testing in heparinized plasma have been validated by the individual laboratory site where testing is performed. Testing on heparinized plasma is not approved by the FDA; however, such approval is not necessary. Performed By: #### V ERAB #### CARIN Webb ([id number]) [facility] ([facility]) [address] [place] [address] Potassium [Moles/Vol] 4.3 mmol/L Normal 3.5-5.3 [facility] Comment on above: Performed By: #### V ERAB #### CARIN Webb ([id number]) [facility] ([facility]) [address] [place] [address] Sodium [Moles/Vol] 132 mmol/L Low 136-145 [facility] Comment on above: Performed By: #### V ERAB #### CARIN Webb ([id number]) [facility] ([facility]) [address] [place] [address] Urea nitrogen [Mass/Vol] 15 mg/dL Normal 6-23 [facility] Comment on above: Performed By: #### V ERAB #### CARIN Webb ([id number]) [facility] ([facility]) [address] [place] [address] TSHon 09-19-2024 TSH Qn 0.66 m[IU]/L [facility] TSH Qnon 01-30-2024 Interpretation and review of laboratory results Normal [facility] TSH testing is perfo rmed using different testing methodology at [facility] than at other [facility]. Direct result comparisons should only be made within the same method. [facility] Thyrotropinon 01-30-2024 TSH Qn 0.66 m[IU]/L Normal 0.44-3.98 [facility] Comment on above: Order Comment: Thi s is for confirming/verifying history of ABORh on file for transfusion of blood products. If this is not for transfusion, please order an ABO/RH [[id number]]. If you have any questions or unsure what to order, please call the blood bank. Performed By: #### V ERAB #### CARIN Webb ([id number]) [facility] ([facility] [address] [place] [address] Vitamin B12on 01-30-2024 Cobalamin (Vitamin B12) [Mass/Vol] 468 pg/mL 211 - 911 pg/mL [facility] Vitamin D 25-Hydroxy,Total ( for eval of Vitamin D levels)on 01-30-2024 25-hydroxyvitamin D3 [Mass/Vol] 33 ng/mL 30 - 100 ng/mL [facility] CBC panel Auto (Bld)on 01-28 Erythrocyte distribution width (RBC) [Ratio] 13.2 % 11.5 - 14.5 % [facility] Hematocrit (Bld) [Volume fraction] 28.2 % Low 41.0 - 52.0 % [facility] Hemoglobin (Bld) [Mass/Vol] 9.3 g/dL Low 13.5 - 17.5 g/dL [facility] Interpretation and review of laboratory results Abnormal [facility] MCH (RBC) [Entitic mass] 29.6 pg 26.0 - 34.0 pg [facility] MCHC (RBC) [Mass/Vol] 33.0 g/dL 32.0 - 36.0 g/dL [facility] MCV (RBC) [Entitic vol] 90 fL 80 - 100 fL [facility] Nucleated RBC/100 WBC (Bld) [Ratio] 0.0 % [facility] Platelets (Bld) [#/Vol] 179 10*3/uL [facility] RBC (Bld) [#/Vol] 3.14 10*6/uL Low [facility] WBC (Bld) [#/Vol] 7.0 10*3/uL [facility] Erythrocyte distribution width (RBC) [Ratio] 13.2 % Normal 11.5-14.5 [facility] Comment on above: Performed By: #### V ERAB #### CARIN Webb ([id number]) [facility] ([facility]) [address] [place] [address] Hematocrit (Bld) [Volume fraction] 28.2 % Low 41.0-52.0 [facility] Comment on above: Performed By: #### V ERAB #### CARIN Webb ([id number]) [facility] ([facility]) [address] [place] [address] Hemoglobin (Bld) [Mass/Vol] 9.3 g/dL Low 13.5-17.5 [facility] Comment on above: Performed By: #### V ERAB #### CARIN Webb ([id number]) [facility] ([facility]) [address] [place] [address] MCH (RBC) [Entitic mass] 29.6 pg Normal 26.0-34.0 [facility] Comment on above: Performed By: #### V ERAB #### CARIN Webb ([id number]) [facility] ([facility]) [address] [place] [address] MCHC (RBC) [Mass/Vol] 33.0 g/dL Normal 32.0-36.0 [facility] Comment on above: Performed By: #### V ERAB #### CARIN Webb ([id number]) [facility] ([facility]) [address] [place] [address] MCV (RBC) [Entitic vol] 90 fL Normal 80-100 [facility] Comment on above: Performed By: #### Marybeth ERAB #### CARIN Webb ([id number]) [facility] ([facility]) [address] [place] [address] Nucleated RBC/100 WBC (Bld) [Ratio] 0.0 /100 WBCs Normal 0.0-0.0 [facility] Comment on above: Performed By: #### Marybeth ERAB #### CARIN Webb ([id number]) [facility] ([facility]) [address] [place] [address] Platelets (Bld) [#/Vol] 179 x10*3/uL Normal 150-450 [facility] Comment on above: Performed By: #### Marybeth ERAB #### CARIN Webb ([id number]) [facility] ([facility]) [address] [place] [address] RBC (Bld) [#/Vol] 3.14 x10*6/uL Low 4.50-5.90 [facility] Comment on above: Performed By: #### Marybeth ERAB #### CARIN Webb ([id number]) [facility] ([facility]) [address] [place] [address] WBC (Bld) [#/Vol] 7.0 x10*3/uL Normal 4.4-11.3 [facility] Comment on above: Performed By: #### Marybeth ERAB #### CARIN Webb ([id number]) [facility] ([facility]) [address] [place] [address] Renal function 2000 panelon 01-29-2024 Albumin BCP dye [Mass/Vol] 3.3 g/dL Low 3.4 - 5.0 g/dL [facility] Anion gap [Moles/Vol] 12 mmol/L 10 - 2 0 mmol/L [facility] Calcium [Mass/Vol] 8.6 mg/dL 8.6 - 10. 6 mg/dL [facility] Chloride [Moles/Vol] 97 mmol/L Low 98 - 10 7 mmol/L [facility] CO2 [Moles/Vol] 27 mmol/L 21 - 32 mmol/L [facility] Creatinine [Mass/Vol] 0.95 mg/dL 0.50 - 1.30 mg/dL [facility] GFR/1.73 sq M.predicted among non-blacks MDRD (S/P/Bld) [Vol rate/Area] 79 mL/min/{1.73_m2} - PINF [facility] Comment on above: Calculations of sebastien mated GFR are performed using the 2020 CKD-EPI Study Refit equation without the race variable for the IDMS-Traceable creatinine methods. https://jasn.asnjournals.org/content//ASN.25646 76480 Glucose [Mass/Vol] 102 mg/dL High 74 - 99 mg/dL [facility] Interpretation and review of laboratory results Abnormal [facility] Phosphate [Mass/Vol] 2.9 mg/dL 2.5 - 4 .9 mg/dL [facility] Comment on above: The performance tripp acteristics of phosphorus testing in heparinized plasma have been validated by the individual laboratory site where testing is performed. Testing on heparinized plasma is not approved by the FDA; however, such approval is not necessary. Potassium [Moles/Vol] 4.5 mmol/L 3.5 - 5.3 mmol/L [facility] Sodium [Moles/Vol] 131 mmol/L Low 136 - 145 mmol/L [facility] Urea nitrogen [Mass/Vol] 18 mg/dL 6 - 23 mg/dL [facility] Albumin BCP dye [Mass/Vol] 3.3 g/dL Low 3.4-5.0 [facility] Comment on above: Performed By: #### V ERAB #### CARIN Webb ([id number]) [facility] ([facility]) [address] [place] [address] Anion gap [Moles/Vol] 12 mmol/L Normal 10-20 [facility] Comment on above: Performed By: #### V ERAB #### CARIN Webb ([id number]) [facility] ([facility]) [address] [place] [address] Calcium [Mass/Vol] 8.6 mg/dL Normal 8.6-10.6 [facility] Comment on above: Performed By: #### V ERAB #### CARIN Webb ([id number]) [facility] ([facility]) [address] [place] [address] Chloride [Moles/Vol] 97 mmol/L Low 98-107 [facility] Comment on above: Performed By: #### V ERAB #### CARIN Webb ([id number]) [facility] ([facility]) [address] [place] [address] CO2 [Moles/Vol] 27 mmol/L Normal 21-32 [facility] Comment on above: Performed By: #### V ERAB #### CARIN Webb ([id number]) [facility] ([facility]) [address] [place] [address] Creatinine [Mass/Vol] 0.95 mg/dL Normal 0.50-1.30 [facility] Comment on above: Performed By: #### V ERAB #### CARIN Webb ([id number]) [facility] ([facility]) [address] [place] [address] Glomerular filtration rate/1.73 sq M.predicted 79 mL/min/1.73m*2 Normal >60 [facility] Comment on above: Result Comment: Calc ulations of estimated GFR are performed using the 2020 CKD-EPI Study Refit equation without the race variable for the IDMS-Traceable creatinine methods. https://jasn.asnjournals.org/content//ASN.23016 10819 Performed By: #### V ERAB #### CARIN Webb ([id number]) [facility] ([facility]) [address] [place] [address] Glucose [Mass/Vol] 102 mg/dL High 74-99 [facility] Comment on above: Performed By: #### V ERAB #### CARIN Webb ([id number]) [facility] ([facility]) [address] [place] [address] Phosphate [Mass/Vol] 2.9 mg/dL Normal 2.5-4.9 [facility] Comment on above: Result Comment: The performance characteristics of phosphorus testing in heparinized plasma have been validated by the individual laboratory site where testing is performed. Testing on heparinized plasma is not approved by the FDA; however, such approval is not necessary. Performed By: #### V ERAB #### CARIN Webb ([id number]) [facility] ([facility]) [address] [place] [address] Potassium [Moles/Vol] 4.5 mmol/L Normal 3.5-5.3 [facility] Comment on above: Performed By: #### V ERAB #### CARIN Webb ([id number]) [facility] ([facility]) [address] [place] [address] Sodium [Moles/Vol] 131 mmol/L Low 136-145 [facility] Comment on above: Performed By: #### V ERAB #### CARIN Webb ([id number]) [facility] ([facility]) [address] [place] [address] Urea nitrogen [Mass/Vol] 18 mg/dL Normal 6-23 [facility] Comment on above: Performed By: #### V ERAB #### CARIN Webb ([id number]) [facility] ([facility]) [address] [place] [address] CBC panel Auto (Bld)on 01-27 Erythrocyte distribution width (RBC) [Ratio] 13.2 % 11.5 - 14.5 % [facility] Hematocrit (Bld) [Volume fraction] 35.8 % Low 41.0 - 52.0 % [facility] Hemoglobin (Bld) [Mass/Vol] 10.7 g/dL Low 13.5 - 17.5 g/dL [facility] Interpretation and review of laboratory results Abnormal [facility] MCH (RBC) [Entitic mass] 29.3 pg 26.0 - 34.0 pg [facility] MCHC (RBC) [Mass/Vol] 29.9 g/dL Low 32.0 - 36.0 g/dL [facility] MCV (RBC) [Entitic vol] 98 fL 80 - 100 fL [facility] Nucleated RBC/100 WBC (Bld) [Ratio] 0.0 % [facility] Platelets (Bld) [#/Vol] 154 10*3/uL [facility] RBC (Bld) [#/Vol] 3.65 10*6/uL Low [facility] WBC (Bld) [#/Vol] 8.6 10*3/uL [facility] Erythrocyte distribution width (RBC) [Ratio] 13.2 % Normal 11.5-14.5 [facility] Comment on above: Performed By: #### 5 8410-2 #### CARIN Webb ([id number]) [facility] ([facility]) [address] [place] [address] Hematocrit (Bld) [Volume fraction] 35.8 % Low 41.0-52.0 [facility] Comment on above: Performed By: #### 5 8410-2 #### CARIN Webb ([id number]) [facility] ([facility]) [address] [place] [address] Hemoglobin (Bld) [Mass/Vol] 10.7 g/dL Low 13.5-17.5 [facility] Comment on above: Performed By: #### 5 8410-2 #### CARIN Webb ([id number]) [facility] ([facility]) [address] [place] [address] MCH (RBC) [Entitic mass] 29.3 pg Normal 26.0-34.0 [facility] Comment on above: Performed By: #### 5 8410-2 #### CARIN Webb ([id number]) [facility] ([facility]) [address] [place] [address] MCHC (RBC) [Mass/Vol] 29.9 g/dL Low 32.0-36.0 [facility] Comment on above: Performed By: #### 5 8410-2 #### CARIN Webb ([id number]) [facility] ([facility]) [address] [place] [address] MCV (RBC) [Entitic vol] 98 fL Normal 80-100 [facility] Comment on above: Performed By: #### 5 8410-2 #### CARIN Webb ([id number]) [facility] ([facility]) [address] [place] [address] Nucleated RBC/100 WBC (Bld) [Ratio] 0.0 /100 WBCs Normal 0.0-0.0 [facility] Comment on above: Performed By: #### 5 8410-2 #### CARIN Webb ([id number]) [facility] ([facility]) [address] [place] [address] Platelets (Bld) [#/Vol] 154 x10*3/uL Normal 150-450 [facility] Comment on above: Performed By: #### 5 8410-2 #### CARIN Webb ([id number]) [facility] ([facility]) [address] [place] [address] RBC (Bld) [#/Vol] 3.65 x10*6/uL Low 4.50-5.90 [facility] Comment on above: Performed By: #### 5 8410-2 #### CARIN Webb ([id number]) [facility] ([facility]) [address] [place] [address] WBC (Bld) [#/Vol] 8.6 x10*3/uL Normal 4.4-11.3 [facility] Comment on above: Performed By: #### 5 8410-2 #### CARIN Webb ([id number]) [facility] ([facility]) [address] [place] [address] Abdomen and Pelvis W cont rast [...] Grossman. Data analyzed and images interpreted at [place], [place]. MACRO: Critical Finding: See findings. Notification was initiated on 01/28/2024 at 12:59 am by Nevaeh Lind. (-YCF-) Instructions: Signed by: Nevaeh Lind 01/28/2024 12:59 AM Dictation workstation: [id number] [facility] MMODAL Interpreted By: Nevaeh Goel and Beyersdorf Conner STUDY: CT ABDOMEN PELVIS W IV CONTRAST; 01/27/2024 11:40 pm INDICATION: Signs/Symptoms:fall. COMPARISON: CT pelvis 01/27/2024 ACCESSION NUMBER(S): [id number] ORDERING CLINICIAN: HARINI MENDEZ TECHNIQUE: CT of [...] and its branches. The IVC appears normal. PERITONEUM/RETROPERITONEUM/ LYMPH NODES: No ascites or free air, no [...] Signs/Symptoms:fall. COMPARISON: CT pelvis 01/27/2024 ACCESSION NUMBER(S): [id number] ORDERING CLINICIAN: HARINI MENDEZ TECHNIQUE: CT of [...] and its branches. The IVC appears normal. PERITONEUM/RETROPERITONEUM/ LYMPH NODES: No ascites or free air, no [...] Grossman. Data analyzed and images interpreted at [facility], [place], [place]. MACRO: Critical Finding: See findings. Notification was initiated on 01/28/2024 at 12:59 am by Nevaeh Lind. (-YCF-) Instructions: Signed by: Nevaeh Lind 01/28/2024 12:59 AM Dictation workstation: [id number] [facility] Work Phone: [facility] Work Phone: ECG 12 LeadOrdered By: Jessa Hill on 01-28-2024 Atrial Rate 67 BPM [facility] Work Phone: P [place] 30 degrees [facility] Work Phone: [phone] P Offset 185 ms [facility] Work Phone: [phone] P Onset 124 ms [facility] Work Phone: [phone] HI Interval 192 ms [facility] Work Phone: [phone] Q Onset 220 ms [facility] Work Phone: [phone] QRS Count 10 beats [facility] Work Phone: [phone] QRS Duration 90 ms [facility] Work Phone: [phone] QT Interval 392 ms [facility] Work Phone: [phone] QTC Calculation(Bazett) 414 [facility] Work Phone: QTC Fredericia [address] [facility] Work Phone: [phone] R [place] 39 degrees [facility] Work Phone: [phone] T [place] 34 degrees [facility] Work Phone: [phone] T Offset 416 ms [facility] Work Phone: Ventricular Rate 67 BPM [facility] Work Phone: [phone] [facility] Work Phone: ECG 12 Leadon 01-28-2024 Normal sinus rhythm Normal ECG No previous ECGs available See ED provider note for full interpretation and clinical correlation Confirmed by Daphne Hill ([id number]) on 01/28/2024 1:10:44 AM Daphne Moore PA-C - 01/28/2024 Normal sinus rhythm Normal ECG No previous ECGs available See ED provider note for full interpretation and clinical correlation Confirmed by Daphne Hill ([id number]) on 01/28/2024 1:10:44 AM [facility] Work Phone: FL FLUORO IMAGES NO CHARGEon 01-28-2024 FL FLUORO IMAGES NO CHARGE These images are not reportable by radiology and will not be interpreted by Radiologists. Normal [facility] Magnesiumon 01-28-2024 Magnesium [Mass/Vol] 2.02 mg/dL 1.60 - 2.40 mg/dL [facility] Magnesium [Mass/Vol] 2.02 mg/dL Normal 1.60-2.40 [facility] Comment on above: Performed By: #### 1 9123-9 #### CARIN Webb ([id number]) [facility] ([facility]) [address] [place] [address] Magnesium [Mass/Vol]on 01-27 Interpretation and review of laboratory results Normal [facility] No Panel Informationon 01-27 [facility] 1. Minimally displac ed subtrochanteric periprosthetic fracture, not significantly changed in alignment. 2. 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 I personally reviewed the images/study and I agree with the findings as stated by Dr. Song Lozoya. This study was interpreted at [place], [place]. MACRO: None Signed by: Nevaeh Lind 01/28/2024 12:34 AM Dictation workstation: [id number] Interpreted By: Nevaeh Goel and [place] Zachary STUDY: XR HIP LEFT WITH PELVIS WHEN PERFORMED 2 OR 3 VIEWS; XR KNEE LEFT 1-2 VIEWS 01/27/2024 8:52 pm INDICATION: Signs/Symptoms:femur fracture COMPARISON: Pelvic radiograph 01/27/2024. ACCESSION NUMBER(S): [id number]; [id number] ORDERING CLINICIAN: DEANA GONZALEZ TECHNIQUE: AP view of the pelvis [...] fracture COMPARISON: Pelvic radiograph 01/27/2024. ACCESSION NUMBER(S): [id number]; [id number] ORDERING CLINICIAN: DEANA GONZALEZ TECHNIQUE: AP view of the pelvis [...] Song Lozoya. This study was interpreted at [place], [place]. MACRO: None Signed by: Nevaeh Lind 01/28/2024 12:34 AM Dictation workstation: [id number] [facility] Work Phone: No Panel InformationOrdered By: Nevaeh Lind on 01-28-2024 [facility] Work Phone: Renal function 2000 panelon 01-28-2024 Albumin BCP dye [Mass/Vol] 3.3 g/dL Low 3.4 - 5.0 g/dL [facility] Anion gap [Moles/Vol] 13 mmol/L 10 - 2 0 mmol/L [facility] Calcium [Mass/Vol] 8.2 mg/dL Low 8.6 - 10. 6 mg/dL [facility] Chloride [Moles/Vol] 100 mmol/L 98 - 10 7 mmol/L [facility] CO2 [Moles/Vol] 23 mmol/L 21 - 32 mmol/L [facility] Creatinine [Mass/Vol] 0.74 mg/dL 0.50 - 1.30 mg/dL [facility] GFR/1.73 sq M.predicted among non-blacks MDRD (S/P/Bld) [Vol rate/Area] 89 mL/min/{1.73_m2} - PINF [facility] Comment on above: Calculations of sebastien mated GFR are performed using the 2020 CKD-EPI Study Refit equation without the race variable for the IDMS-Traceable creatinine methods. https://jasn.asnjournals.org/content//ASN.67917 10563 Glucose [Mass/Vol] 142 mg/dL High 74 - 99 mg/dL [facility] Interpretation and review of laboratory results Abnormal [facility] Phosphate [Mass/Vol] 3.5 mg/dL 2.5 - 4 .9 mg/dL [facility] Comment on above: The performance tripp acteristics of phosphorus testing in heparinized plasma have been validated by the individual laboratory site where testing is performed. Testing on heparinized plasma is not approved by the FDA; however, such approval is not necessary. Potassium [Moles/Vol] 4.8 mmol/L 3.5 - 5.3 mmol/L [facility] Sodium [Moles/Vol] 131 mmol/L Low 136 - 145 mmol/L [facility] Urea nitrogen [Mass/Vol] 14 mg/dL 6 - 23 mg/dL [facility] Albumin BCP dye [Mass/Vol] 3.3 g/dL Low 3.4-5.0 [facility] Comment on above: Performed By: #### 2 4362-6 #### CARIN Webb ([id number]) [facility] ([facility]) [address] [place] [address] Anion gap [Moles/Vol] 13 mmol/L Normal 10-20 [facility] Comment on above: Performed By: #### 2 4362-6 #### CARIN Webb ([id number]) [facility] ([facility]) [id number] [place] [address] Calcium [Mass/Vol] 8.2 mg/dL Low 8.6-10.6 [facility] Comment on above: Performed By: #### 2 4362-6 #### CARIN Webb ([id number]) [facility] ([facility]) [address] [place] [address] Chloride [Moles/Vol] 100 mmol/L Normal 98-107 [facility] Comment on above: Performed By: #### 2 4362-6 #### CARIN Webb ([id number]) [facility] ([facility]) [address] [place] [address] CO2 [Moles/Vol] 23 mmol/L Normal 21-32 [facility] Comment on above: Performed By: #### 2 4362-6 #### CARIN Webb ([id number]) [facility] ([facility]) [address] [place] [address] Creatinine [Mass/Vol] 0.74 mg/dL Normal 0.50-1.30 [facility] Comment on above: Performed By: #### 2 4362-6 #### CARIN MERINO L ([id number]) [facility] ([facility]) [address] [place] [address] Glomerular filtration rate/1.73 sq M.predicted 89 mL/min/1.73m*2 Normal >60 [facility] Comment on above: Result Comment: Calc ulations of estimated GFR are performed using the 2020 CKD-EPI Study Refit equation without the race variable for the IDMS-Traceable creatinine methods. https://jasn.asnjournals.org/content//ASN.71460 87547 Performed By: #### 2 4362-6 #### CARIN Webb ([id number]) [facility] ([facility]) [address] [place] [address] Glucose [Mass/Vol] 142 mg/dL High 74-99 [facility] Comment on above: Performed By: #### 2 4362-6 #### CARIN Webb ([id number]) [facility] ([facility]) [id number] [place] [address] Phosphate [Mass/Vol] 3.5 mg/dL Normal 2.5-4.9 [facility] Comment on above: Result Comment: The performance characteristics of phosphorus testing in heparinized plasma have been validated by the individual laboratory site where testing is performed. Testing on heparinized plasma is not approved by the FDA; however, such approval is not necessary. Performed By: #### 2 4362-6 #### CARIN Webb ([id number]) [facility] ([facility]) [address] [place] [address] Potassium [Moles/Vol] 4.8 mmol/L Normal 3.5-5.3 [facility] Comment on above: Performed By: #### 2 4362-6 #### CARIN Webb ([id number]) [facility] ([facility]) [address] [place] [address] Sodium [Moles/Vol] 131 mmol/L Low 136-145 [facility] Comment on above: Performed By: #### 2 4362-6 #### CARIN Webb ([id number]) [facility] ([facility]) [id number] [place] [address]409 Urea nitrogen [Mass/Vol] 14 mg/dL Normal 6-23 [facility] Comment on above: Performed By: #### 2 4362-6 #### CARIN MERINO L ([id number]) [facility] ([facility]) [address] [place] [address] XR Chest Single viewon 01-27 1. Mild bibasilar atelectasis. I personally reviewed the images/study and I agree with the findings as stated by Dr. Song Lozoya. This study was interpreted at [place], [place]. MACRO: None Signed by: Nevaeh Lind 01/28/2024 12:36 AM Dictation workstation: [id number] [facility] Interpreted By: Nevaeh Goel and Ohs Zachary STUDY: XR CHEST 1 VIEW; 01/27/2024 8:52 pm INDICATION: Signs/Symptoms:preop clearance. COMPARISON: None. ACCESSION NUMBER(S): [id number] ORDERING CLINICIAN: DEANA GONZALEZ FINDINGS: AP radiograph of the chest [...] of the posterolateral 6th and 7th ribs. [facility] Nevaeh Lind MD - 01/28/2024 Interpreted By: Nevaeh Lind and Ohs Zachary STUDY: XR CHEST 1 VIEW; 01/27/2024 8:52 pm INDICATION: Signs/Symptoms:preop clearance. COMPARISON: None. ACCESSION NUMBER(S): [id number] ORDERING CLINICIAN: DEANA GONZALEZ FINDINGS: AP radiograph of the chest [...] Song Lozoya. This study was interpreted at [place], [place]. MACRO: None Signed by: Nevaeh Lind 01/28/2024 12:36 AM Dictation workstation: [id number] [facility] Work Phone: [facility] Work Phone: XR tomography Unspecified dave dy regionon 01-28-2024 These images are not reportable by radiology and will not be interpreted by Radiologists. IMAGING Blood type AND Indirect anti body screen panelon 01-27-2024 ABO group Nom (Bld) A Normal [facility] Comment on above: Performed By: #### 3 4532-2 #### CARIN Webb ([id number]) [facility] ([facility]) [address] [place] [address] D Ag Ql (Bld) Positive Normal [facility] Comment on above: Performed By: #### 3 4532-2 #### CARIN Webb ([id number]) [facility] ([facility]) [address] [place] [address] Blood type and Indirect anti body screen panel (Bld)on 01-27-2024 ABO group Nom (Bld) A [facility] Blood group antibody screen Ql Negative [facility] D Ag Ql (Bld) Positive [facility] Blood group antibody screen Ql Negative Normal [facility] Comment on above: Performed By: #### 3 4532-2 #### CARIN Webb ([id number]) [facility] ([facility]) [address] [place] [address] CBC W Auto Differential pane l (Bld)on 01-27-2024 Basophils (Bld) [#/Vol] 0.05 10*3/uL [facility] Basophils/100 WBC (Bld) 0.6 % 0.0 - 2.0 % [facility] Eosinophils (Bld) [#/Vol] 0.57 10*3/uL High [facility] Eosinophils/100 WBC (Bld) 7.3 % 0.0 - 6.0 % [facility] Erythrocyte distribution width (RBC) [Ratio] 13.4 % 11.5 - 14.5 % [facility] Hematocrit (Bld) [Volume fraction] 36.5 % Low 41.0 - 52.0 % [facility] Hemoglobin (Bld) [Mass/Vol] 12.3 g/dL Low 13.5 - 17.5 g/dL [facility] Immature granulocytes (Bld) [#/Vol] 0.03 10*3/uL [facility] Immature granulocytes/100 WBC (Bld) 0.4 % 0.0 - 0.9 % [facility] Comment on above: Immature Granulocyte Count (IG) includes promyelocytes, myelocytes and metamyelocytes but does not include bands. Percent differential counts (%) should be interpreted in the context of the absolute cell counts (cells/UL). Interpretation and review of laboratory results Abnormal [facility] Lymphocytes (Bld) [#/Vol] 0.97 10*3/uL [facility] Lymphocytes/100 WBC (Bld) 12.3 % 13.0 - 44.0 % [facility] MCH (RBC) [Entitic mass] 29.9 pg 26.0 - 34.0 pg [facility] MCHC (RBC) [Mass/Vol] 33.7 g/dL 32.0 - 36.0 g/dL [facility] MCV (RBC) [Entitic vol] 89 fL 80 - 100 fL [facility] Monocytes (Bld) [#/Vol] 1.09 10*3/uL High [facility] Monocytes/100 WBC (Bld) 13.9 % 2.0 - 10.0 % [facility] Neutrophils (Bld) [#/Vol] 5.15 10*3/uL [facility] Comment on above: Percent differential counts (%) should be interpreted in the context of the absolute cell counts (cells/uL). Neutrophils/100 WBC (Bld) 65.5 % 40.0 - 80.0 % [facility] Nucleated RBC/100 WBC (Bld) [Ratio] 0.0 % [facility] Platelets (Bld) [#/Vol] 182 10*3/uL [facility] RBC (Bld) [#/Vol] 4.12 10*6/uL Low [facility] WBC (Bld) [#/Vol] 7.9 10*3/uL [facility] Basophils (Bld) [#/Vol] 0.05 x10*3/uL Normal 0.00-0.10 [facility] Comment on above: Performed By: #### 5 7021-8 #### BRANDON Webb ([id number]) [facility] ([facility]) [address] [place] [address] 48604 Basophils/100 WBC (Bld) 0.6 % Normal 0.0-2.0 [facility] Comment on above: Performed By: #### 5 7021-8 #### BRANDON Webb ([id number]) [facility] ([facility]) [address] [place] [address] 01527 Eosinophils (Bld) [#/Vol] 0.57 x10*3/uL High 0.00-0.40 [facility] Comment on above: Performed By: #### 5 7021-8 #### BRANDON Webb ([id number]) [facility] ([facility]) [address] [place] [address] 48217 Eosinophils/100 WBC (Bld) 7.3 % Normal 0.0-6.0 [facility] Comment on above: Performed By: #### 5 7021-8 #### BRANDON Webb ([id number]) [facility] ([facility]) [address] [place] [address] 70523 Erythrocyte distribution width (RBC) [Ratio] 13.4 % Normal 11.5-14.5 [facility] Comment on above: Performed By: #### 5 7021-8 #### BRANDON Webb ([id number]) [facility] ([facility]) [address] [place] [address] 09838 Hematocrit (Bld) [Volume fraction] 36.5 % Low 41.0-52.0 [facility] Comment on above: Performed By: #### 5 7021-8 #### BRANDON Webb ([id number]) [facility] ([facility]) [address] [place] [address] 08483 Hemoglobin (Bld) [Mass/Vol] 12.3 g/dL Low 13.5-17.5 [facility] Comment on above: Performed By: #### 5 7021-8 #### BRANDON Webb ([id number]) [facility] ([facility]) [address] [place] [address] 79719 Immature granulocytes (Bld) [#/Vol] 0.03 x10*3/uL Normal 0.00-0.50 [facility] Comment on above: Performed By: #### 5 7021-8 #### BRANDON Webb ([id number]) [facility] ([facility]) [address] [place] [address] 28123 Immature granulocytes/100 WBC (Bld) 0.4 % Normal 0.0-0.9 [facility] Comment on above: Result Comment: Larisa ture Granulocyte Count (IG) includes promyelocytes, myelocytes and metamyelocytes but does not include bands. Percent differential counts (%) should be interpreted in the context of the absolute cell counts (cells/UL). Performed By: #### 5 7021-8 #### BRANDON Webb ([id number]) [facility] ([facility]) [address] [place] [address] 83473 Lymphocytes (Bld) [#/Vol] 0.97 x10*3/uL Normal 0.80-3.00 [facility] Comment on above: Performed By: #### 5 7021-8 #### BRANDON Webb ([id number]) [facility] ([facility]) [address] [place] [address] 31856 Lymphocytes/100 WBC (Bld) 12.3 % Normal 13.0-44.0 [facility] Comment on above: Performed By: #### 5 7021-8 #### BRANDON Webb ([id number]) [facility] ([facility]) [address] [place] [address] 53613 MCH (RBC) [Entitic mass] 29.9 pg Normal 26.0-34.0 [facility] Comment on above: Performed By: #### 5 7021-8 #### BRANDON Webb ([id number]) [facility] ([facility]) [address] [place] [address] MCHC (RBC) [Mass/Vol] 33.7 g/dL Normal 32.0-36.0 [facility] Comment on above: Performed By: #### 5 7021-8 #### BRANDON Webb ([id number]) [facility] ([facility]) [address] [place] [address] MCV (RBC) [Entitic vol] 89 fL Normal 80-100 [facility] Comment on above: Performed By: #### 5 7021-8 #### BRANDON Webb ([id number]) [facility] ([facility]) [address] [place] [address] Monocytes (Bld) [#/Vol] 1.09 x10*3/uL High 0.05-0.80 [facility] Comment on above: Performed By: #### 5 7021-8 #### BRANDON Webb ([id number]) [facility] ([facility]) [address] [place] [address] Monocytes/100 WBC (Bld) 13.9 % Normal 2.0-10.0 [facility] Comment on above: Performed By: #### 5 7021-8 #### BRANDON Webb ([id number]) [facility] ([facility]) [address] [place] [address] Neutrophils (Bld) [#/Vol] 5.15 x10*3/uL Normal 1.60-5.50 [facility] Comment on above: Result Comment: Perc ent differential counts (%) should be interpreted in the context of the absolute cell counts (cells/uL). Performed By: #### 5 7021-8 #### BRANDON Webb ([id number]) [facility] ([facility]) [address] [place] [address] 74314 Neutrophils/100 WBC (Bld) 65.5 % Normal 40.0-80.0 [facility] Comment on above: Performed By: #### 5 7021-8 #### BRANDON Webb ([id number]) [facility] ([facility]) [address] [place] [address] Nucleated RBC/100 WBC (Bld) [Ratio] 0.0 /100 WBCs Normal 0.0-0.0 [facility] Comment on above: Performed By: #### 5 7021-8 #### BRANDON Webb ([id number]) [facility] ([facility]) [address] [place] [address] 53278 Platelets (Bld) [#/Vol] 182 x10*3/uL Normal 150-450 [facility] Comment on above: Performed By: #### 5 7021-8 #### BRANDON Webb ([id number]) [facility] ([facility]) [address] [place] [address] RBC (Bld) [#/Vol] 4.12 x10*6/uL Low 4.50-5.90 [facility] Comment on above: Performed By: #### 5 7021-8 #### BRANDON Webb ([id number]) [facility] ([facility]) [address] [place] [address] 77162 WBC (Bld) [#/Vol] 7.9 x10*3/uL Normal 4.4-11.3 [facility] Comment on above: Performed By: #### 5 7021-8 #### BRANDON Webb ([id number]) [facility] ([facility]) [address] [place] [address] ABDOMEN PELVIS W IV CONTR Jane 01-27-2024 CT ABDOMEN PELVIS W IV CONTRAST Interpreted By: Nevaeh Lind and Beyersdorf Conner STUDY: CT ABDOMEN PELVIS W IV CONTRAST; 01/27/2024 11:40 pm INDICATION: Signs/Symptoms:fall. COMPARISON: CT pelvis 01/27/2024 ACCESSION NUMBER(S): [id number] ORDERING CLINICIAN: HARINI MENDEZ TECHNIQUE: CT of [...] and its branches. The IVC appears normal. PERITONEUM/RETROPERITONEUM/ LYMPH NODES: No ascites or free air, no [...] Grossman. Data analyzed and images interpreted at [facility], [place], [place]. MACRO: Critical Finding: See findings. Notification was initiated on 01/28/2024 at 12:59 am by Nevaeh Lind. (-YCF-) Instructions: Signed by: Nevaeh Lind 01/28/2024 12:59 AM Dictation workstation: [id number] [facility] CT Abdomen and Pelvis W cont rast Diana 01-27-2024 Radiology Study observation (narrative) [facility] Work Phone: CT LUMBAR SPINE WO IV CONTRA STon 01-27-2024 CT LUMBAR SPINE WO IV CONTRAST Interpreted By: Lelia Mclaughlin, STUDY: CT LUMBAR SPINE WO IV CONTRAST 01/27/2024 12:14 pm INDICATION: Signs/Symptoms:fall COMPARISON: None. ACCESSION NUMBER(S): [id number] ORDERING CLINICIAN: DEZ HOOVER TECHNIQUE: Axial CT [...] Lelia Mclaughlin 01/27/2024 1:35 PM Dictation workstation: [id number] [facility] CT Lumbar spine WO contrasto n 01-27-2024 Multilevel discogeni c degenerative changes with central canal and neural foraminal narrowing at multiple levels and vacuum disc at every level. Minimal loss of height of multiple lumbar spine vertebral bodies of likely chronic nature. MACRO: None Signed by: Lelia Mclaughlin 01/27/2024 1:35 PM Dictation workstation: [id number] [facility] Interpreted By: Lelia Romo, STUDY: CT LUMBAR SPINE WO IV CONTRAST 01/27/2024 12:14 pm INDICATION: Signs/Symptoms:fall COMPARISON: None. ACCESSION NUMBER(S): [id number] ORDERING CLINICIAN: DEZ HOOVER TECHNIQUE: Axial CT [...] pm INDICATION: Signs/Symptoms:fall COMPARISON: None. ACCESSION NUMBER(S): [id number] ORDERING CLINICIAN: DEZ HOOVER TECHNIQUE: Axial CT [...] Lelia Mclaughlin 01/27/2024 1:35 PM Dictation workstation: [id number] [facility] Work Phone: CT Lumbar spine WO contrastO rdered By: Lelia Mclaughlin on 01-27-2024 [facility] Work Phone: CT PELVIS WO IV CONTRASTon 0 01-27-2024 CT PELVIS WO IV CONTRAST Interpreted By: Sushil Mcclellan, STUDY: CT PELVIS WO IV CONTRAST; ; 01/27/2024 12:14 pm INDICATION: Signs/Symptoms:fall/left hip pain/history of implant/unable to ambulate. COMPARISON: None. 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 MACRO: None Signed by: Sushil Mcclellan 01/27/2024 12:43 PM Dictation workstation: [id number] Interpreted By: Sushil Harris, STUDY: CT PELVIS WO IV CONTRAST; ; 01/27/2024 12:14 pm INDICATION: Signs/Symptoms:fall/left hip pain/history of implant/unable to ambulate. COMPARISON: None. ACCESSION NUMBER(S): [id number] ORDERING CLINICIAN: DEZ HOOVER TECHNIQUE: Multiple thin-section [...] implant/unable to ambulate. COMPARISON: None. ACCESSION NUMBER(S): [id number] ORDERING CLINICIAN: DEZ HOOVER TECHNIQUE: Multiple thin-section [...] Sushil Mcclellan 01/27/2024 12:43 PM Dictation workstation: [id number] [facility] Work Phone: CT Pelvis WO contrastOrdered By: Sushil Mcclellan on 01-27-2024 [facility] Work Phone: Coagulation tissue factor in ducedon 01-27-2024 PT Coag (PPP) [Time] 12.6 s Normal 9.8-12.8 [facility] Comment on above: Performed By: #### 5 902-2 #### BRANDON Webb ([id number]) [facility] ([facility]) [address] [place] [address] 20877 Comprehensive metabolic 2000 panelon 01-27-2024 Albumin BCP dye [Mass/Vol] 3.8 g/dL 3.4 - 5.0 g/dL [facility] ALP [Catalytic activity/Vol] 43 U/L 33 - 136 U/L [facility] ALT With P-5'-P [Catalytic activity/Vol] 12 U/L 10 - 52 U/L [facility] Comment on above: Patients treated wit h Sulfasalazine may generate falsely decreased results for ALT. Anion gap [Moles/Vol] 10 mmol/L 10 - 2 0 mmol/L [facility] AST With P-5'-P [Catalytic activity/Vol] 17 U/L 9 - 39 U/L [facility] Bilirubin [Mass/Vol] 0.8 mg/dL 0.0 - 1 .2 mg/dL [facility] Calcium [Mass/Vol] 8.6 mg/dL 8.6 - 10. 3 mg/dL [facility] Chloride [Moles/Vol] 101 mmol/L 98 - 10 7 mmol/L [facility] CO2 [Moles/Vol] 27 mmol/L 21 - 32 mmol/L [facility] Creatinine [Mass/Vol] 0.71 mg/dL 0.50 - 1.30 mg/dL [facility] GFR/1.73 sq M.predicted among non-blacks MDRD (S/P/Bld) [Vol rate/Area] 90 mL/min/{1.73_m2} - PINF [facility] Comment on above: Calculations of sebastien mated GFR are performed using the 2020 CKD-EPI Study Refit equation without the race variable for the IDMS-Traceable creatinine methods. https://jasn.asnjournals.org/content//ASN.77386 05179 Glucose [Mass/Vol] 95 mg/dL 74 - 99 mg/dL [facility] Interpretation and review of laboratory results Abnormal [facility] Potassium [Moles/Vol] 4.5 mmol/L 3.5 - 5.3 mmol/L [facility] Protein [Mass/Vol] 6.7 g/dL 6.4 - 8.2 g/dL [facility] Sodium [Moles/Vol] 133 mmol/L Low 136 - 145 mmol/L [facility] Urea nitrogen [Mass/Vol] 15 mg/dL 6 - 23 mg/dL [facility] Albumin BCP dye [Mass/Vol] 3.8 g/dL Normal 3.4-5.0 [facility] Comment on above: Performed By: #### 2 4323-8 #### BRANDON Webb ([id number]) [facility] ([facility]) [address] [place] [address] ALP [Catalytic activity/Vol] 43 U/L Normal 33-136 [facility] Comment on above: Performed By: #### 2 4323-8 #### BRANDON Webb ([id number]) [facility] ([facility]) [address] [place] [address] 86808 ALT With P-5'-P [Catalytic activity/Vol] 12 U/L Normal 10-52 [facility] Comment on above: Result Comment: Eloisa ents treated with Sulfasalazine may generate falsely decreased results for ALT. Performed By: #### 2 4323-8 #### BRANDON Webb ([id number]) [facility] ([facility]) [address] [place] [address] 81748 Anion gap [Moles/Vol] 10 mmol/L Normal 10-20 [facility] Comment on above: Performed By: #### 2 4323-8 #### BRANDON Webb ([id number]) [facility] ([facility]) [address] [place] [address] 33957 AST With P-5'-P [Catalytic activity/Vol] 17 U/L Normal 9-39 [facility] Comment on above: Performed By: #### 2 4323-8 #### BRANDON Webb ([id number]) [facility] ([facility]) [address] [place] [address] 76840 Bilirubin [Mass/Vol] 0.8 mg/dL Normal 0.0-1.2 [facility] Comment on above: Performed By: #### 2 4323-8 #### BRANDON Webb ([id number]) [facility] ([facility]) [address] [place] [address] 79747 Calcium [Mass/Vol] 8.6 mg/dL Normal 8.6-10.3 [facility] Comment on above: Performed By: #### 2 4323-8 #### BRANDON Webb ([id number]) [facility] ([facility]) [address] [place] [address] 06807 Chloride [Moles/Vol] 101 mmol/L Normal 98-107 [facility] Comment on above: Performed By: #### 2 4323-8 #### BRANDON Webb ([id number]) [facility] ([facility]) [address] [place] [address] 61813 CO2 [Moles/Vol] 27 mmol/L Normal 21-[address] [facility] Comment on above: Performed By: #### 2 4323-8 #### BRANDON Webb ([id number]) [facility] ([facility]) [address] [place] [address] 08687 Creatinine [Mass/Vol] 0.71 mg/dL Normal 0.50-1.30 [facility] Comment on above: Performed By: #### 2 4323-8 #### BRANDON Webb ([id number]) [facility] ([facility]) [address] [place] [address] 76184 Glomerular filtration rate/1.73 sq M.predicted 90 mL/min/1.73m*2 Normal >60 [facility] Comment on above: Result Comment: Calc ulations of estimated GFR are performed using the 2020 CKD-EPI Study Refit equation without the race variable for the IDMS-Traceable creatinine methods. https://jasn.asnjournals.org/content//ASN.29141 73367 Performed By: #### 2 4323-8 #### BRANDON Webb ([id number]) [facility] ([facility]) [address] [place] [address] Glucose [Mass/Vol] 95 mg/dL Normal 74-99 [facility] Comment on above: Performed By: #### 2 4323-8 #### BRANDON Webb ([id number]) [facility] ([facility]) [address] [place] [address] Potassium [Moles/Vol] 4.5 mmol/L Normal 3.5-5.3 [facility] Comment on above: Performed By: #### 2 4323-8 #### BRANDON Webb ([id number]) [facility] ([facility]) [address] [place] [address] 02065 Protein [Mass/Vol] 6.7 g/dL Normal 6.4-8.2 [facility] Comment on above: Performed By: #### 2 4323-8 #### BRANDON Webb ([id number]) [facility] ([facility]) [address] [place] [address] 33082 Sodium [Moles/Vol] 133 mmol/L Low 136-145 [facility] Comment on above: Performed By: #### 2 4323-8 #### BRANDON Webb ([id number]) [facility] ([facility]) [address] [place] [address] Urea nitrogen [Mass/Vol] 15 mg/dL Normal 6-23 [facility] Comment on above: Performed By: #### 2 4323-8 #### BRANDON Webb ([id number]) [facility] ([facility]) [address] [place] [address] ECG 12-LEADon 01-27-2024 ECG 12-LEAD Ventricular Rate 67 Atrial Rate 67 P-R Interval 192 QRS Duration 90 Q-T Interval 392 QTC Calculation(Bazett) 414 P [place] 30 R [place] 39 T [place] 34 QRS Count 10 Q Onset 220 P Onset 124 P Offset 185 T Offset 416 QTC Fredericia 407 Diagnosis Normal sinus rhythm Normal ECG No previous ECGs available See ED provider note for full interpretation and clinical correlation Confirmed by Daphne Hill ([id number]) on 01/28/2024 1:10:44 AM Normal [facility] No Panel Informationon 01-26 Radiology Study observation (narrative) [facility] Work Phone: A fracture through t he proximal left femur. No dislocation. Signed by: Lelia Mclaughlin 01/27/2024 3:15 PM Dictation workstation: [id number] [facility] Interpreted By: Lelia Romo, STUDY: XR FEMUR LEFT 2+ VIEWS; XR PELVIS 1-2 VIEWS; 01/27/2024 3:04 pm INDICATION: Signs/Symptoms:fall. COMPARISON: None. ACCESSION NUMBER(S): [id number]; [id number] ORDERING CLINICIAN: DEZ HOOVER FINDINGS: Total bilateral hip arthroplasties.. There is a fracture through the proximal femur, inferior to the trochanters. No dislocation. Vascular calcification. Degenerative changes of the visualized left knee. Vascular calcification. MMODAL Lelia Mclaughlin MD - 01/27/2024 Interpreted By: Lelia Mclaughlin, STUDY: XR FEMUR LEFT 2+ VIEWS; XR PELVIS 1-2 VIEWS; 01/27/2024 3:04 pm INDICATION: Signs/Symptoms:fall. COMPARISON: None. ACCESSION NUMBER(S): [id number]; [id number] ORDERING CLINICIAN: DEZ HOOVER FINDINGS: Total bilateral hip arthroplasties.. There is a fracture through the proximal femur, inferior to the trochanters. No dislocation. Vascular calcification. Degenerative changes of the visualized left knee. Vascular calcification. IMPRESSION: A fracture through the proximal left femur. No dislocation. Signed by: Lelia Mclaughlin 01/27/2024 3:15 PM Dictation workstation: [id number] [facility] Work Phone: [facility] Work Phone: [facility] Radiology Study observation (narrative) [facility] Work Phone: Radiology Study observation (narrative) [facility] Work Phone: PT Coag (PPP) [Time]on 01-26 INR Coag (PPP) [Relative time] 1.1 {INR} 0.9 - 1.1 [facility] Interpretation and review of laboratory results [facility] INR Coag (PPP) [Relative time] 1.1 Normal 0.9-1.1 [facility] Comment on above: Performed By: #### 5 [id number] #### BRANDON Webb ([id number]) [facility] ([facility]) [address] [place] [address] Protime-INRon 01-27-2024 PT Coag (PPP) [Time] 12.6 s [facility] VERAB/VERIFY ABORHon 024 ABO group Nom (Bld) A Normal [facility] Comment on above: Order Comment: Thi s is for confirming/verifying history of ABORh on file for transfusion of blood products. If this is not for transfusion, please order an ABO/RH [[id number]]. If you have any questions or unsure what to order, please call the blood bank. Performed By: #### V ERAB #### CARIN Webb ([id number]) [facility] ([facility]) [address] [place] [address] D Ag Ql (Bld) Positive Normal [facility] Comment on above: Order Comment: Thi s is for confirming/verifying history of ABORh on file for transfusion of blood products. If this is not for transfusion, please order an ABO/RH [[id number]]. If you have any questions or unsure what to order, please call the blood bank. Performed By: #### V ERAB #### CARIN Webb ([id number]) [facility] ([facility]) [address] [place] [address] XR CHEST 1 VIEWon 01-27-2024 XR CHEST 1 VIEW Interpreted By: Nevaeh Goel and Ohs Zachary STUDY: XR CHEST 1 VIEW; 01/27/2024 8:52 pm INDICATION: Signs/Symptoms:preop clearance. COMPARISON: None. ACCESSION NUMBER(S): [id number] ORDERING CLINICIAN: DEANA GONZALEZ FINDINGS: AP radiograph of the chest [...] Song Lozoya. This study was interpreted at [place], [place]. MACRO: None Signed by: Nevaeh Lind 01/28/2024 12:36 AM Dictation workstation: [id number] [facility] XR FEMUR LEFT 2+ VIEWSon XR FEMUR LEFT 2+ VIEWS Interpreted By: Lelia Vieyra, STUDY: XR FEMUR LEFT 2+ VIEWS; XR PELVIS 1-2 VIEWS; 01/27/2024 3:04 pm INDICATION: Signs/Symptoms:fall. COMPARISON: None. ACCESSION NUMBER(S): [id number]; [id number] ORDERING CLINICIAN: DEZ HOOVER FINDINGS: Total bilateral hip arthroplasties.. There is a fracture through the proximal femur, inferior to the trochanters. No dislocation. Vascular calcification. Degenerative changes of the visualized left knee. Vascular calcification. IMPRESSION: A fracture through the proximal left femur. No dislocation. Signed by: Lelia Mclaughlin 01/27/2024 3:15 PM Dictation workstation: [id number] [facility] XR HIP LEFT WITH PELVIS WHEN PERFORMED 2 OR 3 VIEWSon 01-27-2024 XR HIP LEFT WITH PELVIS WHEN PERFORMED 2 OR 3 VIEWS Interpreted By: Nevaeh Lind and Ohs Zachary STUDY: XR HIP LEFT WITH PELVIS WHEN PERFORMED 2 OR 3 VIEWS; XR KNEE LEFT 1-2 VIEWS 01/27/2024 8:52 pm INDICATION: Signs/Symptoms:femur fracture COMPARISON: Pelvic radiograph 01/27/2024. ACCESSION NUMBER(S): [id number]; [id number] ORDERING CLINICIAN: DEANA GONZALEZ TECHNIQUE: AP view of the pelvis [...] Song Lozoya. This study was interpreted at [place], [place]. MACRO: None Signed by: Nevaeh Lind 01/28/2024 12:34 AM Dictation workstation: [id number] Normal [facility] XR KNEE LEFT 1-2 VIEWSon XR KNEE LEFT 1-2 VIEWS Interpreted By: Nevaeh Ricketts and Ohs Zachary STUDY: XR HIP LEFT WITH PELVIS WHEN PERFORMED 2 OR 3 VIEWS; XR KNEE LEFT 1-2 VIEWS 01/27/2024 8:52 pm INDICATION: Signs/Symptoms:femur fracture COMPARISON: Pelvic radiograph 01/27/2024. ACCESSION NUMBER(S): [id number]; [id number] ORDERING CLINICIAN: DEANA GONZALEZ TECHNIQUE: AP view of the pelvis [...] Song Lozoya. This study was interpreted at [facility], [place], [place]. MACRO: None Signed by: Nevaeh Lind 01/28/2024 12:34 AM Dictation workstation: [id number] [facility] XR PELVIS 1-2 VIEWSon 2023 XR PELVIS 1-2 VIEWS Interpreted By: Lelia Romo, STUDY: XR FEMUR LEFT 2+ VIEWS; XR PELVIS 1-2 VIEWS; 01/27/2024 3:04 pm INDICATION: Signs/Symptoms:fall. COMPARISON: None. ACCESSION NUMBER(S): [id number]; [id number] ORDERING CLINICIAN: DEZ HOOVER FINDINGS: Total bilateral hip arthroplasties.. There is a fracture through the proximal femur, inferior to the trochanters. No dislocation. Vascular calcification. Degenerative changes of the visualized left knee. Vascular calcification. IMPRESSION: A fracture through the proximal left femur. No dislocation. Signed by: Lelia Mclaughlin 01/27/2024 3:15 PM Dictation workstation: [id number] [facility] 01-08-2024 36 Appointment noted. [facility] 01-07-2024 36 S: Patient spoke wit h [facility] nurse regarding Numbness of face, unregulated saliva [...] enough liquids, chapped lips.) Protocols used: Swallowing Jszrqhbsyi-HQBGL-RJ, Mouth Zcjgbjzi-QZJUX-CR [facility]WALKWA ) PHILLY JOEL ([id number]) 1940 M [facility] Date Time Provider Department [...] allergy or URI symptoms. No cough, n/v/d, CABELLO, or rash. Denies fever, chills, sweats, or [...] adenopathy. Skin: (more content not included)... 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 Normal [facility] Free T4 [Mass/Vol]on 023 Free T4 Dialysis [Mass/Vol] 1.24 ng/dL 0.78 - 2.19 ng/dL [facility] Interpretation and review of laboratory results Normal [facility] T3on 09-06-2022 T3 [Mass/Vol] 137 ng/dL 97 - 169 ng/dL [facility] T3 [Mass/Vol]on 09-06-2022 Interpretation and review of laboratory results Normal [facility] TSHon 09-06-2022 TSH Qn 0.284 m[IU]/L Low [facility] TSH Qnon 09-06-2022 Interpretation and review of laboratory results Abnormal [facility] Lipid 1996 panelon 3 Cholesterol [Mass/Vol] 184 mg/dL NINF - 200 mg/dL [facility] Cholesterol in HDL [Mass/Vol] 60 mg/dL 40 - 60 mg/dL [facility] Cholesterol in LDL [Mass/Vol] 113 mg/dL High 0 - <100 [facility] Cholesterol.total/Chol esterol in HDL [Mass ratio] 3 {ratio} [facility] Comment on above: Ref Range: < 3 Low Risk for CHD 3-6 Mod Risk for CHD > 6 High Risk for CHD Interpretation and review of laboratory results Abnormal [facility] Triglyceride [Mass/Vol] 56 mg/dL NINF - 150 mg/dL [facility] TSHon 08-09-2022 TSH Qn 0.432 m[IU]/L Low [facility] TSH Qnon 08-09-2022 Interpretation and review of laboratory results Abnormal [facility] CR Knee 3 Views Lefton 11-30 CR Knee 3 Views Left Patient Name: PHILLY JOHNSON Diagnostic Radiology ACCESSION EXAM DATE/TIME PROCEDURE ORDERING PROVIDER [id number] 11/30/2021 14:36 EDT CR Knee 3 Views Left GUILHERME [place] CPT code 77875 Reason For Exam (CR Knee 3 Views [...] Transcribed Date and Time: 12/02/2021 2:08 Normal [facility] CR Foot Complete 3+ Views [facility] 01-30-2020 CR Foot Complete 3+ Views Right Patient Name: PHILLY JOEL Diagnostic Radiology Exam Date/Time 01/30/2020 13:48:35 EDT Exam CR Foot Complete 3+ Views Right Ordering Physician MD NAIR JESSE Accession Number [id number] CPT4 Codes 15193 () Reason For Exam Injury Report Examination: [...] Transcribed Date and Time: 01/30/2020 2:16 Normal [facility] XR FOOT RIGHT (MIN 3 VIEWS)o n 01-30-2020 Patient Name: PHILLY KEEN ---Diagnostic Radiology--- Exam Date/Time 01/30/2020 13:48:35 EDT Exam CR Foot Complete 3+ Views Right Ordering Physician MD NAIR JESSE Accession Number [id number] CPT4 Codes 69882 () Reason For Exam Injury Report Examination: [...] fourth metatarsals. Osteopenia. Report Dictated on Workstation: [employer] --- Final --- Dictating Physician: MD BARROS ANTHONY J Signed Date and Time: 01/30/2020 2:15 pm Signed by: MD BARROS ANTHONY J Transcribed Date and Time: 01/30/2020 2:16 [facility], [place], [facility] Incoming Radiology Results From [facility] - 01/30/2020 2:16 PM EDT Patient Name: PHILLY JOEL ---Diagnostic Radiology--- Exam Date/Time 01/30/2020 13:48:35 EDT Exam CR Foot Complete 3+ Views Right Ordering Physician MD NAIR JESSE Accession Number [id number] CPT4 Codes 50963 () Reason For Exam Injury Report Examination: [...] fourth metatarsals. Osteopenia. Report Dictated on Workstation: [employer] --- Final --- Dictating Physician: MD BARROS ANTHONY J Signed Date and Time: 01/30/2020 2:15 pm Signed by: MD BARROS ANTHONY J Transcribed Date and Time: 01/30/2020 2:16 [place], [place] CNTHERAPYon 12-05-2017 CNTHERAPY OT/PT/Speech Visit (PTMDRG) -------[facility] ([id number][facility] 1940 [facility]12/05/17 12:45 PM SABRINA DEMPSEY (PT) PTMDRGEncounter Number: [id number] Time Provider Department [place]12/05/2017 12:45 PM [id number], JUDITH (PT)PTMDRG [facility] PT Discharge [752]Visit Diagnosis:Decreased ROM [...] for sp* * CHOLECALCIFEROL (VITAMIN D3) *Progress Notes:Sabrina Dempsey, PT 12/05/2017 5:10 PM SignedEpisode Visit Count: 6Therapist That Will Oversee The Plan Of Care: Sherri DempseyStart of Care Date: 11/14/17Onset Date: 08/15/17Plan of Care Certification Date: 11/14/17Patient Identified by Name and Date of : YesREHABILITATION AND SPORTS THERAPYPHYSICAL THERAPY DISCONTINUANCE OF CAREPLAN OF CARE UPDATE:Assessment: Philly Joel is discontinued from Physical Therapy services [...] R/left to 10 secs with decreased hip/upper extremityStrategies--METPat ient will be able to get down to [...] Skilled judgment was provided in selection of appropriateinterventions.Go niometric measurements, MMTBilling:Paul: Therapeutic Exercise (36261): 1:1 time: 39 minutes (3 units: 38-52mins)Total time: 39 minutesSabrina Dempsey PT - Normal [facility] PROGRESSon 12-05-2017 Protein HNO ID: [id number] thor: Sabrina (Pt) Kishor: (none)Author Type: Physical TherapistType: Progress NotesFiled: 12/05/2017 5:10 PMNote Text:Episode Visit Count: 6Therapist That Will Oversee The Plan Of Care: Sherri Postart of Care Date: 11/14/17Onset Date: 08/15/17Plan of Care Certification Date: 11/14/17Patient Identified by Name and Date of : YesREHABILITATION AND SPORTS THERAPYPHYSICAL THERAPY DISCONTINUANCE OF CAREPLAN OF CARE UPDATE:Assessment: Philly Joel is discontinued from Physical Therapy servicesdue to goal achievement. and Patient/Client declining furtherintervention. Patient is independent with HEP and feels confident he cancontinue with same for further gains in strength and flexibility. Patientwas seen for 6 visits from Start of Care Date: 11/14/17 to 12/05/2017 andtreatment included: Therapeutic exercise and Patient/Family/CaregiverEdu cation.Goals for Episode of Care: created on 11/14/17 [...] R/left to 10 secs with decreased hip/upper extremityStrategies--METPat ient will be able to get down to [...] selection ofappropriate interventions.Goniometric measurements, MMTBilling:Paul: Therapeutic Exercise (57444): 1:1 time: 39 minutes (3 units:38-52 mins)Total time: 39 minutesSabrina Dempsey PT [facility] CNTHERAPYon 12-03-2017 CNTHERAPY OT/PT/Speech Visit (PTMDRG) -------PHILLY JOEL ([id number]) 1940 [facility] Time Provider Department12/03/17 12:45 PM SABRINA DEMPSEY (PT) PTMDRGEncounter Number: [id number] Time Provider Department [place]12/03/2017 12:45 PM [id number], JUDITH (PT)PTMDRG [facility] CReason for Visit: Physical Therapy [503]Visit Diagnosis:Decreased [...] for sp* * CHOLECALCIFEROL (VITAMIN D3) *Progress Notes:Sabrina Dempsey PT 12/03/2017 5:48 PM SignedEpisode Visit Count: 5Therapist That Will Oversee The Plan Of Care: Sherri Wick of Care Date: 11/14/17Onset Date: 08/15/17Plan of Care Certification Date: 11/14/17Patient Identified by Name and Date of : YesREHABILITATION AND SPORTS THERAPYPHYSICAL THERAPY TREATMENT NOTEASSESSMENT: Philly Joel demonstrated difficulty with getting down to [...] doing hiptheraband ex.Pain Score: 5/10Pain Location: BackDescription: Stiffness;TightnessFrequenc y: IntermittentPost Treatment Pain Score: No ChangeOBJECTIVE MEASURES WITH LEVEL OF FUNCTION:LE FlexibilityR Hamstring Flexibility: -41L Hamstring Flexibility: -35TREATMENT:Therapeutic Exercise:1: Nu-step, seat 15, arms14, L 5 x 5 minutes 10 sec ab brace every 30 seconds2: Chinese Ball: Lat tilts and circles cw/ccw x [...] assist to assist patient while performing floor transfersBilling:Paul: Therapeutic Exercise (83515): 1:1 time: 35 minutes (3 units: 38-52mins)Therapeutic Activity (07799): 1:1 time: 5 minutes (no charge)Total time: 40 minutesSabrina Dempsey PT - Normal [facility] PROGRESSon 12-03-2017 Protein HNO ID: [id number] thor: Sabrina (Pt) Kishor: (none)Author Type: Physical TherapistType: Progress NotesFiled: 12/03/2017 5:48 PMNote Text:Episode Visit Count: 5Therapist That Will Oversee The Plan Of Care: Sherri Wick of Care Date: 11/14/17Onset Date: 08/15/17Plan of Care Certification Date: 11/14/17Patient Identified by Name and Date of : YesREHABILITATION AND SPORTS THERAPYPHYSICAL THERAPY TREATMENT NOTEASSESSMENT: Philly Joel demonstrated difficulty with getting down tofloor and [...] hip theraband ex.Pain Score: 5/10Pain Location: BackDescription: Stiffness;TightnessFrequenc y: IntermittentPost Treatment Pain Score: No ChangeOBJECTIVE MEASURES WITH LEVEL OF FUNCTION:LE FlexibilityR Hamstring Flexibility: -41L Hamstring Flexibility: -35TREATMENT:Therapeutic Exercise:1: Nu-step, seat 15, arms14, L 5 x 5 minutes 10 sec ab brace every 37usqnhcj0: Chinese Ball: Lat tilts and circles cw/ccw x [...] by assist to assist patient while performingfloor transfersBilling:Cherokee: Therapeutic Exercise (69380): 1:1 time: 35 minutes (3 units:38-52 mins)Therapeutic Activity (98429): 1:1 time: 5 minutes (no charge)Total time: 40 minutesSabrina Dempsey PT [facility] CNTHERAPYon 11-28-2017 CNTHERAPY OT/PT/Speech Visit (PTMDRG) -------PHILLY JOEL ([id number]) 1940 [facility] Time Provider Department11/28/17 12:45 PM SABRINA DEMPSEY (PT) PTMDRGEncounter Number: [id number] Time Provider Department [place]11/28/2017 12:45 PM [id number], JUDITH (PT)PTMDRG [facility] CReason for Visit: Physical Therapy [503]Visit Diagnosis:Decreased [...] for sp* * CHOLECALCIFEROL (VITAMIN D3) *Progress Notes:Sabrina Dempsey PT 11/29/2017 4:59 PM SignedEpisode Visit Count: 4Therapist That Will Oversee The Plan Of Care: Sherri Delano of Care Date: 11/14/17Onset Date: 08/15/17[facility] of Care Certification Date: 11/14/17Patient Identified by Name and Date of : YesREHABILITATION AND SPORTS THERAPYPHYSICAL THERAPY TREATMENT NOTEASSESSMENT: Philly Joel demonstrated improvements in Bilateral active hipflexion. [...] Hip Flexion: 94 DegreesL Hip Flexion: 91 DegreesTREATMENT:Therapeuti c Exercise:1: Nu-step, seat 15, arms14, L [...] Skilled judgment was provided in selection of appropriateinterventions.Co rrect performance of therapeutic exercises was facilitated with verbal andvisual cuing.Neuromuscular Re-Education:1: Biodex limits of stability x 3 with ue support, x 3 without2: Stage 1, 2, 3 x 10 sec eachSkilled Intervention: Skilled judgment used to assess appropriate program forbalance and coordination activity.Insured patient safety with use of close supervisionBilling:Paul: Therapeutic Exercise (67082): 1:1 time: 38 minutes (3 units: 38-52mins)Neuromuscular Re-education (25144): 1:1 time: 5 minutes (no charge)Total time: 43 minutesSabrina Dempsey PT - [facility] PROGRESSon 11-28-2017 Protein HNO ID: [id number] thor: Sabrina (Pt) Kishor: (none)Author Type: Physical TherapistType: Progress NotesFiled: 11/29/2017 4:59 PMNote Text:Episode Visit Count: 4Therapist That Will Oversee The Plan Of Care: Sherri Wick of Care Date: 11/14/17Onset Date: 08/15/17Plan of Care Certification Date: 11/14/17Patient Identified by Name and Date of : YesREHABILITATION AND SPORTS THERAPYPHYSICAL THERAPY TREATMENT NOTEASSESSMENT: Philly Joel demonstrated improvements in Bilateral activehip flexion. [...] Hip Flexion: 94 DegreesL Hip Flexion: 91 DegreesTREATMENT:Therapeuti c Exercise:1: Nu-step, seat 15, arms14, L [...] activity.Insured patient safety with use of close supervisionBilling:Cherokee: Therapeutic Exercise (53765): 1:1 time: 38 minutes (3 units:38-52 mins)Neuromuscular Re-education (36897): 1:1 time: 5 minutes (no charge)Total time: 43 minutesSabrina Dempsey PT [facility] CNTHERAPYon 11-26-2017 CNTHERAPY OT/PT/Speech Visit (PTMDRG) -------[facility] ([id number]) 1940 [facility] Department11/26/17 12:45 PM SABRINA DEMPSEY (PT) PTMDRGEncounter Number: [id number] Time Provider Department [place]11/26/2017 12:45 PM [id number], JUDITH (PT)PTMDRG [facility]: Physical Therapy [503]Visit Diagnosis:Decreased ROM [...] for sp* * CHOLECALCIFEROL (VITAMIN D3) *Progress Notes:Sabrina Dempsey, PT 11/26/2017 2:45 PM SignedEpisode Visit Count: 3Therapist That Will Oversee The Plan Of Care: Sherri Wick of Care Date: 11/14/17Onset Date: 08/15/17Plan of Care Certification Date: 11/14/17Patient Identified by Name and Date of : YesREHABILITATION AND SPORTS THERAPYPHYSICAL THERAPY TREATMENT NOTEASSESSMENT: Philly Joel demonstrated good tolerance to progression offlexibility [...] towel assist3: Hooklying ab brace with alternate july to 90 degrees hip flexion x 104: [...] of gait deviations identified in the objective sectionabove.Billing:Paul : Therapeutic Exercise (96739): 1:1 time: 37 minutes (3 units: 38-52mins)Gait Training (61684): 1:1 time: 3 minutes (no charge)Total time: 40 minutesSabrina Dempsey PT - Normal [facility] PROGRESSon 11-26-2017 Protein HNO ID: [id number] thor: Sabrina (Pt) Kishor: (none)Author Type: Physical TherapistType: Progress NotesFiled: 11/26/2017 2:45 PMNote Text:Episode Visit Count: 3Therapist That Will Oversee The Plan Of Care: Sherri Wick of Care Date: 11/14/17Onset Date: 08/15/17Plan of Care Certification Date: 11/14/17Patient Identified by Name and Date of : YesREHABILITATION AND SPORTS THERAPYPHYSICAL THERAPY TREATMENT NOTEASSESSMENT: Philly Joel demonstrated good tolerance to progression offlexibility [...] identified in the objectivesection above.Billing:Kylee: Therapeutic Exercise (63336): 1:1 time: 37 minutes (3 units:38-52 mins)Gait Training (58107): 1:1 time: 3 minutes (no charge)Total time: 40 minutesSabrina Dempsey PT Normal [facility] CNTHERAPYon 11-21-2017 CNTHERAPY OT/PT/Speech Visit (PTMDRG) -------PHILLY JOEL ([id number]) 1940 MDate Time Provider Department11/21/17 12:45 PM SABRINA DEMPSEY (PT) PTMDRGEncounter Number: [id number] Time Provider Department [place]11/21/2017 12:45 PM [id number], JUDITH (PT)PTMDRG [facility] CReason for Visit: Physical Therapy [503]Primary Visit Diagnosis:Bilateral [...] for sp* * CHOLECALCIFEROL (VITAMIN D3) *Progress Notes:Sabrina Dempsey PT 11/21/2017 1:44 PM SignedEpisode Visit Count: 2Therapist That Will Oversee The Plan Of Care: Sherri Postart of Care Date: 11/14/17Onset Date: 08/15/17Plan of Care Certification Date: 11/14/17Patient Identified by Name and Date of : YesREHABILITATION AND SPORTS THERAPYPHYSICAL THERAPY TREATMENT NOTEASSESSMENT: Philly Joel demonstrated no change since last session. Becauseof [...] MEASURES WITH LEVEL OF FUNCTION:Pelvis is posteriorly rotated.TREATMENT:Therapeut ic Exercise:1: Nu-step, seat 15, arms14, L 4 [...] facilitated with verbal andvisual cuing.Billing:Kylee: Therapeutic Exercise (71672): 1:1 time: 45 minutes (3 units: 38-52mins)Total time: 45 minutesSabrina Dempsey PT - Normal [facility] PROGRESSon 11-21-2017 Protein HNO ID: [id number] thor: Sabrina Iverson: (none)Author Type: Physical TherapistType: Progress NotesFiled: 11/21/2017 1:44 PMNote Text:Episode Visit Count: 2Therapist That Will Oversee The Plan Of Care: Sherri Wick of Care Date: 11/14/17Onset Date: 08/15/17Plan of Care Certification Date: 11/14/17Patient Identified by Name and Date of : YesREHABILITATION AND SPORTS THERAPYPHYSICAL THERAPY TREATMENT NOTEASSESSMENT: Philly Joel demonstrated no change since last session.Because [...] MEASURES WITH LEVEL OF FUNCTION:Pelvis is posteriorly rotated.TREATMENT:Therapeut ic Exercise:1: Nu-step, seat 15, arms14, L 4 [...] therapeutic exercises was facilitated with verbaland visual cuing.Roberting:Kylee: Therapeutic Exercise (75223): 1:1 time: 45 minutes (3 units:38-52 mins)Total time: 45 minutesSabrina Dempsey PT [facility] CNTHERAPYon 11-14-2017 CNTHERAPY OT/PT/Speech Visit (PTMDRG) -------PHILLY JOEL ([id number]) 1940 MDate Time Provider Department11/14/17 10:15 AM SABRINA DEMPSEY (PT) PTMDRGEncounter Number: [id number] Time Provider Department [place]11/14/2017 10:15 AM [id number], JUDITH (PT)PTMDRG [facility] CReason for Visit: PT Kirill [747]Primary Visit Diagnosis:Chronic bilateral low back pain [...] for sp* * CHOLECALCIFEROL (VITAMIN D3) *Progress Notes:Sabrina Dempsey PT 11/14/2017 11:50 AM SignedEpisode Visit Count: 1Therapist That Will Oversee The Plan Of Care: Sherri Postart of Care Date: 11/14/17Onset Date: 08/15/17Plan of Care Certification Date: 11/14/17Patient Identified by Name and Date of : YesREHABILITATION AND SPORTS THERAPYPHYSICAL THERAPY EVALUATIONPLAN OF CARE:Assessment: Philly Joel presents with the diagnosis of s/p [...] Stabilization Subgroup Classification based on: pain with transitionalmovementsProgno sis: GoodGood due to: current objective clinical presentation;good [...] of Visits Planned: 8Planned Treatment Interventions: Therapeutic exercise;Neuromuscularre-ed ucation;Therapeutic activities;Self-care homemanagement;Patient/Fami ly/Caregiver EducationPLAN FOR NEXT VISIT: Progress trunk flexibility ex, hip ROMPatient demonstrates good understanding of plan of care and treatment. Theabove goals and plan of care were discussed and agreed upon by patient/family.SUBJECTIVE: Philly Joel is a 77 year old male [...] Flexion: 84 DegreesLE FlexibilityFlexibility: Hamstring Flexibility;Lower Extremity Flexibility;GastrocnemiusFl exibilityLower Extremity Flexibility: (tight hip flexors)R Hamstring Flexibility: -46L Hamstring Flexibility: -53R Gastrocnemius Flexibility: (minimal limitation)L Gastrocnemius Flexibility: (minimal limitation)30 Second Sit to Stand Test (reps): 9 reps4 Stage Balance TestNarrow base of support (sec): 10 secSemi-tandem base of support (sec): 10 secTandem base of support (sec): 10 secEducation:EducationLearn ing Preferences: Demonstration;Explanation;P erformance;Printed MaterialsBarriers: NoneLearning/educational needs: Home exercise program;Plan of Care;Body MechanicsEducation Provided: Yes, see treatment interventions for education providedEducation Provided To: PatientEducation Mode/Type: Demonstration;Explanation/D iscussion;Literature/Printe dMaterials;PerformanceRespo nse to Education/Teach Back: States/Identifies;Return DemonstrationTREATMENT:Eval uationEvaluationTherapeutic Exercise:1: Sit to stand with arms across [...] activity.Insured patient safety with use of close supervisionBilling:Cherokee: Evaluation - Low Complexity (88481)Therapeutic Exercise (17622): 1:1 time: 10 minutes (1 unit: 8-22 mins)Neuromuscular Re-education (36494): 1:1 time: 5 minutes (no charge)Total time: 55 minutesSabrina Dempsey PT - Normal [facility] PROGRESSon 11-14-2017 Protein HNO ID: [id number] thor: Sabrina (Pt) Kishor: (none)Author Type: Physical TherapistType: Progress NotesFiled: 11/14/2017 11:50 AMNote Text:Episode Visit Count: 1Therapist That Will Oversee The Plan Of Care: Sherri Wick of Care Date: 11/14/17Onset Date: 08/15/17Plan of Care Certification Date: 11/14/17Patient Identified by Name and Date of : YesREHABILITATION AND SPORTS THERAPYPHYSICAL THERAPY EVALUATIONPLAN OF CARE:Assessment: Philly Joel presents with the diagnosis of s/p [...] of Visits Planned: 8Planned Treatment Interventions: Therapeutic exercise;Neuromuscularre-ed ucation;Therapeutic activities;Self-care homemanagement;Patient/Fami ly/Caregiver EducationPLAN FOR NEXT VISIT: Progress trunk flexibility ex, hip ROMPatient demonstrates good understanding of plan of care and treatment.The above goals and plan of care were discussed and agreed upon bypatient/family.SUBJECTIVE : Philly Joel is a 77 year old male [...] Hip Flexion: 84 DegreesLE FlexibilityFlexibility: Hamstring Flexibility;Lower ExtremityFlexibility;Gastro cnemius FlexibilityLower Extremity Flexibility: (tight hip flexors)R Hamstring Flexibility: -46L Hamstring Flexibility: -53R Gastrocnemius Flexibility: (minimal limitation)L Gastrocnemius Flexibility: (minimal limitation)30 Second Sit to Stand Test (reps): 9 reps4 Stage Balance TestNarrow base of support (sec): 10 secSemi-tandem base of support (sec): 10 secTandem base of support (sec): 10 secEducation:EducationLearn ing Preferences: Demonstration;Explanation;P erformance;PrintedMaterials Barriers: NoneLearning/educational needs: Home exercise program;Plan of Care;BodyMechanicsEducation Provided: Yes, see treatment interventions for educationprovidedEducation Provided To: PatientEducation Mode/Type:Demonstration;Exp lanation/Discussion;Literat ure/PrintedMaterials;Perfor manceResponse to Education/Teach Back: States/Identifies;Return DemonstrationTREATMENT:Eval uationEvaluationTherapeutic Exercise:1: Sit to stand with arms across [...] activity.Insured patient safety with use of close supervisionBilling:Cherokee: Evaluation - Low Complexity (22455)Therapeutic Exercise (39959): 1:1 time: 10 minutes (1 unit: 8-22 mins)Neuromuscular Re-education (59080): 1:1 time: 5 minutes (no charge)Total time: 55 minutesSabrina Dempsey, PT [facility] PROGRESSon 11-07-2017 Protein HNO ID: [id number] thor: Sumaya (Ct) Brinda, CTService: (none)Author Type: Clinical TechnicianType: Progress NotesFiled: 11/07/2017 11:11 AMNote Text:NAME:Philly Arambula StephanementDATE: November 07, 2017CCF#: [id number] X-Ray COMPLETEDTECH ID SIGN: SUMAYA ALCANTARA [facility] XR PELVIS 1V APon 11-07-2017 XR PELVIS 1V AP * * *Final Report* * *DATE OF EXAM: Nov 07 2017 8:10AM MAGED 5239 - XR PELVIS 1V AP / REASON: [id number], unspecified * * * * Physician Interpretation [...] RIDER MD on Nov 07 2017 3:48PM [id number] [facility] Vital Signs Date Time Vital Sign Value Performing Clinician Ron waytt 12-04-2024 15:26-0400 Body temperature 99.4 [degF] Dr. Chetan Mata MD Work Phone: [facility] 12-04-2024 15:26-0400 Diastolic blood pressure 57 mm[Hg] Dr. Chetan Mata MD Work Phone: [facility] 12-04-2024 15:26-0400 Heart rate 93 /min Dr. Chetan Mata MD Work Phone: 0(964)837-904954 [place] [address] 12-04-2024 15:26-0400 Respiratory rate 26 /min Dr. Chetan Mata MD Work Phone: 6(815)394-016462 [place] [address] 12-04-2024 15:26-0400 SaO2% (BldA) [Mass fraction] 97 % Dr. Chetan Mata MD Work Phone: 0(069)754-935162 [place] [address] 12-04-2024 15:26-0400 Systolic blood pressure 87 mm[Hg] Dr. Chetan Mata MD Work Phone: 4(416)309-157262 [place] [address] 12-04-2024 15:20-0400 Body height 187.[address] Chetan Mata MD Work Phone: 6(182)416-183462 [place] [address] 12-04-2024 15:20-0400 Body mass index (BMI) [Ratio] 28.4 kg/m2 Dr. Chetan Mata MD Work Phone: 8(253)309-957862 [place] [address] 12-04-2024 15:20-0400 Body weight 100.[address] Chetan Mata MD Work Phone: 2(961)222-459362 [place] [address] 11-29-2024 00:41-0400 Body temperature 99.2 [degF] Dr. Chetan Mata MD Work Phone: 8(659)290-474062 [place] [address] 11-29-2024 00:41-0400 Diastolic blood pressure 87 mm[Hg] Dr. Chetan Mata MD Work Phone: 9(242)431-321162 [place] [address] 11-29-2024 00:41-0400 Heart rate 73 /min Dr. Chetan Mata MD Work Phone: 3(141)064-668854 [place] [address] 11-29-2024 00:41-0400 Respiratory rate 18 /min Dr. Chetan Mata MD Work Phone: 8(913)039-360062 [place] [address] 11-29-2024 00:41-0400 SaO2% (BldA) [Mass fraction] 99 % Dr. Chetan Mata MD Work Phone: 1(789)410-284362 [place] [address] 11-29-2024 00:41-0400 Systolic blood pressure 132 mm[Hg] Dr. Chetan Mata MD Work Phone: 6(469)239-147862 [place] [address] 11-28-2024 23:57-0400 Body height 187.[address] Chetan Mata MD Work Phone: 3(373)035-719762 [place] [address] 11-28-2024 23:57-0400 Body mass index (BMI) [Ratio] 26.6 kg/m2 Dr. Chetan Mata MD Work Phone: 5(061)039-224762 [place] [address] 11-28-2024 23:57-0400 Body weight 94.[address] Chetan Mata MD Work Phone: 1(765)508-020362 [place] [address] 11-18-2024 17:00-0400 Body mass index (BMI) [Ratio] 27.3 kg/m2 Dr. Chetan Mata MD Work Phone: 8(254)780-030762 [place] [address] 11-18-2024 15:11-0400 Body temperature 97.7 [degF] Dr. Chetan Maat MD Work Phone: 0(038)370-977462 [place] [address] 11-18-2024 15:11-0400 Diastolic blood pressure 60 mm[Hg] Dr. Chetan Mata MD Work Phone: 1(164)005-078662 [place] [address] 11-18-2024 15:11-0400 Heart rate 65 /min Dr. Chetan Mata MD Work Phone: 8(351)427-399362 [place] [address] 11-18-2024 15:11-0400 Respiratory rate 18 /min Dr. Chetan Mata MD Work Phone: 0(403)847-170162 [place] [address] 11-18-2024 15:11-0400 SaO2% (BldA) [Mass fraction] 99 % Dr. Chetan Mata MD Work Phone: 8(520)234-119862 [place] [address] 11-18-2024 15:11-0400 Systolic blood pressure 134 mm[Hg] Dr. Chetan Mata MD Work Phone: 9(152)346-369162 [place] [address] 11-16-2024 17:45-0400 Body weight 96.[address] Chetan Mata MD Work Phone: [facility] 11-16-2024 14:08-0400 Body height 187.[address] Chetan Mata MD Work Phone: 1(090)621-538654 [place] [address] 11-15-2024 14:44-0400 Body temperature 98.1 [degF] Dr. Chetan Mata MD Work Phone: 9(841)582-599162 [place] [address] 11-15-2024 14:44-0400 Diastolic blood pressure 88 mm[Hg] Dr. Chetan Mata MD Work Phone: 6(607)038-386854 [place] [address] 11-15-2024 14:44-0400 Heart rate 79 /min Dr. Chetan Mata MD Work Phone: 4(382)971-105062 [place] [address] 11-15-2024 14:44-0400 Respiratory rate 16 /min Dr. Chetan Mata MD Work Phone: 7(800)327-675862 [place] [address] 11-15-2024 14:44-0400 SaO2% (BldA) [Mass fraction] 100 % Dr. Chetan Mata MD Work Phone: 3(721)117-741054 [place] [address] 11-15-2024 14:44-0400 Systolic blood pressure 120 mm[Hg] Dr. Chetan Mata MD Work Phone: [facility] 11-15-2024 12:06-0400 Body height 185.[address] Chetan Mata MD Work Phone: [facility] 02-19-2024 15:51-0400 Body height 185.4 cm Katiana Bragg PA-C Work Phone: [facility] 02-19-2024 15:51-0400 Body mass index (BMI) [Ratio] 26.12 kg/m2 Katiana Bragg PA-C Work Phone: [facility] 02-19-2024 15:51-0400 Body weight 89.81 kg Katiana Bragg PA-C Work Phone: [facility] 02-04-2024 15:58-0400 Body temperature 97.3 [degF] Deana Gonzalez MD Work Phone: [facility] 02-04-2024 15:58-0400 Diastolic blood pressure 73 mm[Hg] Deana Gonzalez MD Work Phone: [facility] 02-04-2024 15:58-0400 Heart rate 80 /min Deana Gonzalez MD Work Phone: [facility] 02-04-2024 15:58-0400 Respiratory rate 18 /min Deana Gonzalez MD Work Phone: [facility] 02-04-2024 15:58-0400 SaO2% (BldA) [Mass fraction] 96 % Deana Gonzalez MD Work Phone: [facility] 02-04-2024 15:58-0400 Systolic blood pressure 114 mm[Hg] Deana Gonzalez MD Work Phone: [facility] 01-28-2024 06:42-0400 Body height 185.4 cm Deana Gonzalez MD Work Phone: [facility] 01-28-2024 06:42-0400 Body mass index (BMI) [Ratio] 26.12 kg/m2 Deana Gonzalez MD Work Phone: [facility] 01-28-2024 06:42-0400 Body weight 89.81 kg Deana Gonzalez MD Work Phone: [facility] 01-27-2024 09:57-0400 Body height 185.4 cm Stewart rodriguez MD Work Phone: [facility] 01-27-2024 09:57-0400 Body mass index (BMI) [Ratio] 26.12 kg/m2 Stewart Robison MD Work Phone: [facility] 01-27-2024 09:57-0400 Body temperature 98.2 [degF] Stewart rodriguez MD Work Phone: [facility] 01-27-2024 09:57-0400 Body weight 89.81 kg Stewart rodriguez MD Work Phone: [facility] 01-27-2024 09:57-0400 Diastolic blood pressure 84 mm[Hg] Stewart Robison MD Work Phone: [facility] 01-27-2024 09:57-0400 Heart rate 63 /min Stewart rodriguez MD Work Phone: [facility] 01-27-2024 09:57-0400 Respiratory rate 18 /min Stewart rodriguez MD Work Phone: [facility] 01-27-2024 09:57-0400 SaO2% (BldA) [Mass fraction] 96 % Stewart Robison MD Work Phone: [facility] 01-27-2024 09:57-0400 Systolic blood pressure 152 mm[Hg] Stewart Robison MD Work Phone: [facility] 01-02-2024 11:02-0400 Body height 180.3 cm Toya Jacobsen PA-C Work Phone: [facility] 01-02-2024 11:02-0400 Body mass index (BMI) [Ratio] 28.76 kg/m2 Toya Jacobsen PA-C Work Phone: [facility] 01-02-2024 11:02-0400 Body temperature 97.39 [degF] Toya Jacobsen PA-C Work Phone: [facility] 01-02-2024 11:02-0400 Body weight 93.55 kg Toya Jacobsen PA-C Work Phone: [facility] 01-02-2024 11:02-0400 Diastolic blood pressure 74 mm[Hg] Toya Jacobsen PA-C Work Phone: [facility] 01-02-2024 11:02-0400 Heart rate 56 /min Toyamakenna Liaugh PA-C Work Phone: [facility] 01-02-2024 11:02-0400 Respiratory rate 18 /min Toya Slabaugh PA-C Work Phone: [facility] 01-02-2024 11:02-0400 SaO2% (BldA) [Mass fraction] 100 % Toya Guillermoaugh PA-C Work Phone: [facility] 01-02-2024 11:02-0400 Systolic blood pressure 159 mm[Hg] Toya Slabaugh PA-C Work Phone: [facility] 02-19-2023 11:28-0400 Body height 180.3 cm Joe Michael MEDICAL MANAGEMENT SPECIALIST.MICRO COMPUTER DATA PROCESSOR Work Phone: [facility] 02-19-2023 11:28-0400 Body temperature 97.81 [degF] Joe Michael MEDICAL MANAGEMENT SPECIALIST.MICRO COMPUTER DATA PROCESSOR Work Phone: [facility] 02-19-2023 11:28-0400 Body weight 98.88 kg Joe Michael MEDICAL MANAGEMENT SPECIALIST.MICRO COMPUTER DATA PROCESSOR Work Phone: [facility] 02-19-2023 11:28-0400 Diastolic blood pressure 64 mm[Hg] Joe Michael MEDICAL MANAGEMENT SPECIALIST.MICRO COMPUTER DATA PROCESSOR Work Phone: [facility] 02-19-2023 11:28-0400 Heart rate 70 /min Joe Michael MEDICAL MANAGEMENT SPECIALIST.MICRO COMPUTER DATA PROCESSOR Work Phone: [facility] 02-19-2023 11:28-0400 Respiratory rate 16 /min Joe Michael MEDICAL MANAGEMENT SPECIALIST.MICRO COMPUTER DATA PROCESSOR Work Phone: [facility] 02-19-2023 11:28-0400 SaO2% (BldA) [Mass fraction] 99 % Joe Michael MEDICAL MANAGEMENT SPECIALIST.MICRO COMPUTER DATA PROCESSOR Work Phone: [facility] 02-19-2023 11:28-0400 Systolic blood pressure 120 mm[Hg] Joe Michael MEDICAL MANAGEMENT SPECIALIST.MICRO COMPUTER DATA PROCESSOR Work Phone: [facility] 11-22-2022 11:05-0400 Body height 185.4 cm Guilherme Fallon MD Work Phone: [facility] 11-22-2022 11:05-0400 Body mass index (BMI) [Ratio] 28.89 kg/m2 Guilherme Fallon MD Work Phone: [facility] 11-22-2022 11:05-0400 Body weight 99.34 kg Guilherme Fallon MD Work Phone: [facility] 11-22-2022 11:05-0400 Diastolic blood pressure 72 mm[Hg] Guilherme Fallon MD Work Phone: [facility] 11-22-2022 11:05-0400 Heart rate 58 /min Guilherme Fallon MD Work Phone: [facility] [employer] 11-22-2022 11:05-0400 SaO2% (BldA) [Mass fraction] 96 % Guilherme Fallon MD Work Phone: [facility] [employer] 11-22-2022 11:05-0400 Systolic blood pressure 125 mm[Hg] Guilherme Fallon MD Work Phone: [facility] 10-26-2022 11:45-0400 Diastolic blood pressure 76 mm[Hg] Larissa Denton MEDICAL MANAGEMENT SPECIALIST - MICRO COMPUTER DATA PROCESSOR Work Phone: [facility] 10-26-2022 11:45-0400 Systolic blood pressure 128 mm[Hg] Larissa Denton MEDICAL MANAGEMENT SPECIALIST - MICRO COMPUTER DATA PROCESSOR Work Phone: [facility] 10-26-2022 11:25-0400 Body height 185.4 cm Larissa Denton APR N - MICRO COMPUTER DATA PROCESSOR Work Phone: [facility] 10-26-2022 11:25-0400 Body mass index (BMI) [Ratio] 29.42 kg/m2 Larissa Denton MEDICAL MANAGEMENT SPECIALIST - MICRO COMPUTER DATA PROCESSOR Work Phone: [facility] 10-26-2022 11:25-0400 Body weight 101.15 kg Larissa Denton APR N - MICRO COMPUTER DATA PROCESSOR Work Phone: [facility] [employer] 10-26-2022 11:25-0400 Heart rate 58 /min Larissa Bertin APR N - MICRO COMPUTER DATA PROCESSOR Work Phone: [facility] [employer] 10-26-2022 11:25-0400 SaO2% (BldA) [Mass fraction] 98 % Larissa Denton MEDICAL MANAGEMENT SPECIALIST - MICRO COMPUTER DATA PROCESSOR Work Phone: [facility] [employer] 09-05-2022 09:57-0400 Diastolic blood pressure 74 mm[Hg] Guilherme Fallon MD Work Phone: [facility] [employer] 09-05-2022 09:57-0400 Systolic blood pressure 162 mm[Hg] Guilherme Fallon MD Work Phone: [facility] [employer] 09-05-2022 09:25-0400 Body height 185.4 cm Guilherme Fallon MD Work Phone: [facility] [employer] 09-05-2022 09:25-0400 Body mass index (BMI) [Ratio] 31.27 kg/m2 Guilherme Fallon MD Work Phone: [facility] [employer] 09-05-2022 09:25-0400 Body weight 107.5 kg Guilherme Fallon MD Work Phone: [facility] [employer] 09-05-2022 09:25-0400 Heart rate 56 /min Guilherme Fallon MD Work Phone: [facility] [employer] 09-05-2022 09:25-0400 SaO2% (BldA) [Mass fraction] 98 % Guilherme Fallon MD Work Phone: [facility] [employer] 08-15-2022 08:27-0400 Body height 185.4 cm Matthew Perez PA-C Work Phone: [facility] [employer] 08-15-2022 08:27-0400 Body mass index (BMI) [Ratio] 31.14 kg/m2 Matthew Perez PA-C Work Phone: [facility] [employer] 08-15-2022 08:27-0400 Body temperature 97.2 [degF] Matthew Perez PA-C Work Phone: [facility] [employer] 08-15-2022 08:27-0400 Body weight 107.05 kg Matthew Perez PA-C Work Phone: [facility] [employer] 08-15-2022 08:27-0400 Diastolic blood pressure 62 mm[Hg] Matthew Perez PA-C Work Phone: [facility] [employer] 08-15-2022 08:27-0400 Heart rate 55 /min Matthew Perez PA-C Work Phone: [facility] [employer] 08-15-2022 08:27-0400 Systolic blood pressure 140 mm[Hg] Matthew Perez PA-C Work Phone: [facility] [employer] 08-08-2022 10:42-0400 Diastolic blood pressure 82 mm[Hg] Guilherme Fallon MD Work Phone: [facility] [employer] 08-08-2022 10:42-0400 Systolic blood pressure 154 mm[Hg] Guilherme Fallon MD Work Phone: [facility] [employer] 08-08-2022 09:19-0400 Body height 185.4 cm Guilherme Fallon MD Work Phone: [facility] [employer] 08-08-2022 09:19-0400 Body mass index (BMI) [Ratio] 31.14 kg/m2 Guilherme Fallon MD Work Phone: [facility] [employer] 08-08-2022 09:19-0400 Body weight 107.05 kg Guilherme Flalon MD Work Phone: [facility] [employer] 08-08-2022 09:19-0400 Heart rate 74 /min Guilherme Fallon MD Work Phone: [facility] [employer] 08-08-2022 09:19-0400 SaO2% (BldA) [Mass fraction] 99 % Guilherme Fallon MD Work Phone: [facility] [employer] 05-28-2022 17:31-0500 Body weight 106.14 kg Letty Shen MEDICAL MANAGEMENT SPECIALIST.MICRO COMPUTER DATA PROCESSOR Work Phone: [facility] 05-28-2022 17:31-0500 Diastolic blood pressure 87 mm[Hg] Letty Shen MEDICAL MANAGEMENT SPECIALIST.MICRO COMPUTER DATA PROCESSOR Work Phone: [facility] 05-28-2022 17:31-0500 Heart rate 64 /min Letty Shen MEDICAL MANAGEMENT SPECIALIST.MICRO COMPUTER DATA PROCESSOR Work Phone: [facility] 05-28-2022 17:31-0500 Respiratory rate 16 /min Letty Shen MEDICAL MANAGEMENT SPECIALIST.MICRO COMPUTER DATA PROCESSOR Work Phone: [facility] 05-28-2022 17:31-0500 SaO2% (BldA) [Mass fraction] 100 % Letty Shen MEDICAL MANAGEMENT SPECIALIST.MICRO COMPUTER DATA PROCESSOR Work Phone: [facility] 05-28-2022 17:31-0500 Systolic blood pressure 153 mm[Hg] Letty Shen MEDICAL MANAGEMENT SPECIALIST.MICRO COMPUTER DATA PROCESSOR Work Phone: [facility] 09-01-2020 11:06-0400 Diastolic blood pressure 88 mm[Hg] Abilio Pike MD [facility] Phone: [facility] Work Phone: 09-01-2020 11:06-0400 Heart rate 88 [...] 98 % Abilio Pike MD Work Phone: [facility] Work Phone: 08-28-2020 12:54-0400 Diastolic blood pressure 68 mm[Hg] Alex Nair MD Work Phone: [facility] Work Phone: 08-28-2020 12:54-0400 Heart rate 62 /min Alex Nair MD Work Phone: [facility] Work Phone: 08-28-2020 12:54-0400 Respiratory rate 18 /min Alex Nair MD Work Phone: [facility] Work Phone: 08-28-2020 12:54-0400 SaO2% (BldA) [Mass fraction] 100 % Alex Nair MD Work Phone: [facility] Work Phone: 08-28-2020 12:54-0400 Systolic blood pressure 144 mm[Hg] Alex Nair MD Work Phone: [facility] Work Phone: 08-28-2020 11:45-0400 Body height 188 cm Alex Nair MD Work Phone: [facility] Work Phone: 08-28-2020 11:45-0400 Body mass index (BMI) [Ratio] 34.02 kg/m2 Alex Nair MD Work Phone: [facility] Work Phone: 08-28-2020 11:45-0400 Body weight 120.2 kg Alex Nair MD Work Phone: [facility] Work Phone: 01-30-2020 15:28-0400 BP Diastolic 85 mm[Hg] [facility] 01-30-2020 15:28-0400 BP Systolic 153 mm[Hg] Alex Louis [employer] [place] , [place] 01-30-2020 15:28-0400 Pulse (Heart Rate) 59 /min Alex [facility] 01-30-2020 15:28-0400 Pulse Oximetry 96 % Alex [facility] 01-30-2020 15:28-0400 Respiratory Rate 16 /min Alex Louis [employer] [employer], [facility] 01-30-2020 13:40-0400 BMI (Body Mass Index) 34.02 kg/m2 Alex [facility] 01-30-2020 13:40-0400 Body Temperature 98.49 [degF] Alex [employer] , [place] 01-30-2020 13:40-0400 Body weight 120.2 kg Alex [facility] 01-30-2020 13:40-0400 Height 188 cm Alex [facility] Encounters Encounter Date Encounter Type Care Provider Facility Start: 12-04-2024 Admission to [facility] Randalldallas Ferris -[facility] Inpatients Work Phone: Start: 12-04-[address] Chetan Mata MD Work Phone: -[facility] In[facility] Start: 12-03-2024 ambulatory No Primary Car e Physician Facility:[facility] Start: 11-28-2024 End: 11-29-2024 Emergency department patient visit Dr. Chetan Mata MD Work Phone: -Emergency Department Work Phone: Start: 11-20-2024 End: 11-20-2024 ambulatory Mary Munoz RN [facility] Start: 11-20-2024 End: 11-20-2024 Patient encounter procedure Mary Munoz RN [facility] Start: 11-19-2024 End: 11-25-2024 Telephone encounter Guilherme Fallon MD Work Phone: [facility] Comment on above: Orders Start: 11-19-2024 ambulatory Leidy [place] Fa cility:[facility] Start: 11-19-2024 Registered Referred Leidy Valadez MD -[facility] [place] Start: 11-18-2024 Non-patient / Non-visit Dr. Luca Doe [facility] Work Phone: Start: 11-17-2024 Non-patient / Non-visit Dr. Luca Doe Loc[facility] Work Phone: Start: 11-16-2024 Non-patient / Non-visit Dr. Luca Doe Located within [facility] Work Phone: Start: 11-16-2024 ambulatory [facility] Facility:[facility] Start: 11-16-2024 Non-patient / [facility] Start: 11-15-2024 ambulatory Luca Yeh Facilit y:[facility] Start: 11-15-2024 End: 11-18-2024 Evaluation and management of inpatient Dr. Shannan Patterson MD -Progressive Care Unit Work Phone: Start: 11-14-2024 End: 11-14-2024 Emergency department patient visit [facility] Start: 04-16-2024 End: 04-16-2024 Subsequent hospital visit by physician [facility] Comment on above: 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 Start: 04-16-2024 End: 04-16-2024 ambulatory KATIANA A [facility] Start: 02-19-2024 End: 02-19-2024 Postop follow up visit related to original px Katiana DAVE-C Work Phone: [facility] Comment on above: 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 (Primary Dx) Start: 02-19-2024 End: 02-19-2024 ambulatory [facility] Start: 02-19-2024 End: 02-19-2024 Subsequent hospital visit by physician Dave [facility] Lowell Gomez Comment on above: 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 Start: 02-19-2024 End: 02-19-2024 ambulatory [facility] Start: 01-27-2024 End: 01-27-2024 Emergency department patient visit DEANA GONZALEZ [facility] Start: 01-27-2024 End: 02-04-2024 Evaluation and management of inpatient DEZ Jose HOOVER [facility] Work Phone: Comment on above: Closed fracture of l eft femur, unspecified fracture morphology, unspecified portion of femur, initial encounter (Multi) (Primary Dx); Periprosthetic fracture of proximal end of femur Start: 01-27-2024 End: 01-27-2024 Emergency department patient visit STEWART ROBISON [facility] Work Phone: Comment on above: 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, initial encounter (Multi) (Primary Dx) Start: 01-07-2024 End: 01-27-2024 ambulatory Martine Hager Clinical Communication Start: 01-07-2024 End: 01-27-2024 Patient encounter procedure Martine Hager Clinical Communication Start: 01-02-2024 End: 01-02-2024 ambulatory GUILHERME FALLON Facility:[facility] Start: 01-02-2024 End: 01-02-2024 Patient encounter procedure Toya Jacobsen PA-C Work Phone: [facility] Comment on above: Bilateral impacted c erumen (Primary Dx) Start: 02-19-2023 End: 02-19-2023 ambulatory DEYANIRA GRAHAM Facility:[facility] Start: 02-19-2023 End: 02-19-2023 Office outpatient new 30 minutes Joe Guo APRN.CNP Work Phone: [facility] Comment on above: Puncture wound of le ft index finger (Primary Dx); Localized erythema; Visit for wound check Start: 01-03-2023 Telephone encounter Guilherme stubbs MD Work Phone: [facility] Comment on above: Orders Start: 12-24-2022 Telephone encounter Guilherme stubbs MD Work Phone: [facility] Comment on above: Results Start: 12-07-2022 End: 12-07-2022 ambulatory Guilherme Fallon MD Work Phone: [facility] Comment on above: Arrived Start: 11-22-2022 End: 11-22-2022 Assay of hemosiderin, quant Guilherme Fallon MD Work Phone: [facility] Work Phone: Start: 11-22-2022 End: 11-22-2022 Patient encounter procedure Guilherme Fallon MD Work Phone: [facility] Comment on above: Routine general medi sherry examination at health care facility (Primary Dx); Primary hypertension; Elevated PSA; Vaccine refused by patient Start: 10-26-2022 End: 10-26-2022 Office outpatient visit 25 minutes Larissa Denton APRN - MICRO COMPUTER DATA PROCESSOR Work Phone: [facility] Comment on above: Primary hypertension (Primary Dx); Dizziness Start: 10-18-2022 Telephone encounter Guilherme stubbs MD Work Phone: [facility] Start: 09-06-2022 End: 09-06-2022 ambulatory Guilherme Fallon MD Work Phone: [facility] Comment on above: Other specified abno rmal findings of blood chemistry (Primary Dx) Start: 09-05-2022 End: 09-05-2022 Office outpatient visit 25 minutes Guilherme Flalon MD Work Phone: [facility] Comment on above: Primary hypertension (Primary Dx); Elevated TSH Start: 08-17-2022 ambulatory Bev Callahan RN [facility] Start: 08-17-2022 Patient encounter procedure Bev Callahan [facility] Start: 08-15-2022 End: 08-15-2022 Office outpatient visit 15 minutes Matthew Perez PA-C Work Phone: [facility] Comment on above: Pain due to onychomy cosis of toenails of both feet (Primary Dx); Age-related physical debility; Enlarged and hypertrophic nails Start: 08-09-2022 End: 08-09-2022 ambulatory Guilherme Fallon MD Work Phone: [facility] Comment on above: Essential (primary) hypertension (Primary Dx) Start: 08-08-2022 End: 08-08-2022 Office outpatient visit 40 minutes Guilherme Fallon MD Work Phone: [facility] Comment on above: Primary hypertension (Primary Dx); Dizziness and giddiness; Observed sleep apnea; Enlarged and hypertrophic nails; Newly recognized murmur Start: 05-28-2022 End: 05-28-2022 Patient encounter procedure Letty Shen APRN.MICRO COMPUTER DATA PROCESSOR Work Phone: [facility] Comment on above: Elevated blood press ure reading (Primary Dx) Start: 11-30-2021 End: 11-30-2021 Subsequent hospital visit by physician Guilherme Fallon MD Work Phone: [facility] X[facility] Comment on above: Injury of left knee, initial encounter Start: 09-01-2020 End: 09-01-2020 Emergency department patient visit Abilio Pike MD Work Phone: [facility] Comment on above: Epistaxis (Primary D x) Start: 08-28-2020 End: 08-28-2020 Emergency department patient visit Alex Nair MD Work Phone: [facility] Comment on above: Acute anterior epist axis (Primary Dx) Start: 01-30-2020 End: 01-30-2020 Emergency department patient visit Alex Nair Work Phone: [facility] Comment on above: Closed fracture of r ight foot, initial encounter (Primary Dx) Start: 12-05-2017 End: 12-05-2017 Patient encounter [facility] Start: 12-03-2017 End: 12-03-2017 Patient encounter [facility] Start: 11-28-2017 End: 11-28-2017 Patient encounter [facility] Start: 11-26-2017 End: 11-26-2017 Patient encounter [facility] Start: 11-21-2017 End: 11-21-2017 Patient encounter [facility] Start: 11-14-2017 End: 11-14-2017 Patient encounter [facility] Start: 11-07-2017 End: 11-07-2017 Patient encounter [facility] Procedures Date Procedure Procedure Detail Performing Clinician Start: 12-04-2024 Measurement of occult blood in stool specimen using immunoassay Dr. Chetan Mata MD Work Phone: Start: 12-04-2024 Urnls dip stick/tablet reagent auto microscopy Dr. Chetan Mata MD Work Phone: Start: 12-04-[address] Chetan Mata MD Work Phone: Start: 11-18-2024 Computed tomography of abdomen and pelvis with intravenous contrast Dr. Chetan Mata MD Work Phone: Start: 11-17-[address] Chetan Mata MD Work Phone: Start: 11-16-2024 MRI of brain without contrast Dr. Chetan Mata MD Work Phone: Start: 11-15-2024 Plain chest X-ray Dr. Chetan Mata MD Work Phone: Start: 11-15-2024 Plain x-ray of pelvis and lower extremity Dr. Chetan Mata MD Work Phone: Start: 11-15-2024 Osmolality measurement, serum Dr. Chetan Mata MD Work Phone: Start: 11-15-2024 CT of head without contrast Dr. Chetan Mata MD Work Phone: Start: 11-15-[address] Chetan Mata MD Work Phone: Start: 11-15-2024 Identification procedure for living organism Dr. Chetan Mata MD Work Phone: Start: 11-15-2024 Chloride measurement, urine Dr. Chetan Mata MD Work Phone: Start: 11-15-2024 Urea nitrogen measurement, urine Dr. Chetan Mata MD Work Phone: Start: 11-15-2024 Urnls dip stick/tablet reagent auto microscopy Dr. Chetan Mata MD Work Phone: Start: 01-31-2024 Blood count complete automated Chani Mosquera PA-C Work Phone: Start: 01-30-2024 Cyanocobalamin vitamin b-12 Lin Wing MD Work Phone: Start: 01-30-2024 Blood typing serologic rh (d) Eliel Roach Dunlap PA-C Work Phone: Start: 01-30-2024 Renal function panel Eliel G Dunlap PA-C Work Phone: Start: 01-29-2024 Renal function panel Eliel G Dunlap PA-C Work Phone: Start: 01-29-2024 Blood count complete automated Eliel Desiree Dunlap PA-C Work Phone: Start: 01-28-2024 Renal function panel Eliel Desiree Dunlap PA-C Work Phone: Start: 01-28-2024 PULSE OXIMETRY, CONTINUOUS Abilio Hernández DO Work Phone: Start: 01-28-2024 XR tomography Unspecified body region Francia Girard MD Work Phone: Start: 01-28-2024 End: 01-28-2024 Optx fem shft fx w/plate/screws w/wo cerclage Frederic Buenrostro MD Work Phone: Start: 01-27-2024 Ct abdomen & pelvis w/contrast material Harini S Leaver PA-C Work Phone: Start: 01-27-2024 VERAB/VERIFY ABORH Deana Gonzalez MD Work Phone: Start: 01-27-2024 Radex hip unilateral with pelvis 2-3 views Deana Gonzalez MD Work Phone: Start: 01-27-2024 Radiologic exam chest single view Francia Girard MD Work Phone: Start: 01-27-2024 Ecg routine ecg w/least 12 lds trcg only w/o i&r Francia Girard MD Work Phone: Start: 01-27-2024 Blood typing serologic rh (d) Francia Girard MD Work Phone: Start: 01-27-2024 Comprehensive metabolic panel Stewart Robison MD Work Phone: Start: 01-27-2024 Radiologic examination femur minimum 2 views Dez Hoover PA-C Work Phone: Start: 01-27-2024 Ct lumbar spine w/o contrast material Dez Hoover PA-C Work Phone: Start: 01-27-2024 Ct pelvis w/o contrast material Dez Hoover PA-C Work Phone: Start: 11-22-2022 Adult depression screening assessment Guilherme Fallon MD Work Phone: Start: 09-06-2022 Assay of free thyroxine Guilherme Fallon MD Work Phone: Start: 08-09-2022 Assay of thyroid stimulating hormone tsh Guilherme Fallon MD Work Phone: Start: 08-09-2022 Lipid panel Guilherme Fallon MD Work Phone: Start: 08-09-2022 Lipid 1996 panel - Serum or Plasma Guilherme Fallon MD Work Phone: Start: 01-30-2020 Radex foot complete minimum 3 views Alex Nair Work Phone: Vaccine refused by patient Vaccine refused by patient Guilherme Fallon MD Work Phone: Plan of Treatment Date Care Activity Detail Author Start: 08-10-2027 Lipid panel Lipid Panel [facility] Start: 12-07-2025 Diabetes Screening Diabetes Screening [facility] Start: 01-11-2025 Influenza vaccination Influenza Vaccine (#1) [facility] Start: 12-04-2024 Esophagogastroduodenoscopy EGD (Not Applicable) [facility] Start: 12-04-2024 [facility] Start: 12-04-2024 Administration of blood product [facility] Start: 12-04-2024 Computed tomography of abdomen and pelvis with contrast CTA Abd/Pelvis W/WO Contrast [facility] Start: 12-04-2024 CT Abdomen and Pelvis [facility] Start: 12-04-2024 Leukocyte reduced red blood cells [facility] Start: 12-04-2024 [facility] Start: 12-04-2024 Consultation [facility] Start: 12-04-2024 End: 12-04-2024 Patient encounter procedure 12/04/2024 11:00 AM EDT Office Visit [address] [place] [phone] Guilherme Fallon MD [facility] [address] [place] [id number] [facility] Start: 11-29-2024 [facility] Start: 11-18-2024 Patient discharge [facility] Start: 11-15-2024 Elevation of affected extremity [facility] Start: 11-15-2024 Notification of physician [facility] Start: 11-15-2024 Application of intermittent pneumatic compression device [facility] Start: 11-15-2024 Following clinical pathway protocol [facility] Start: 11-15-2024 Aspiration precautions [facility] Start: 11-15-2024 Assessment of risk of venous thromboembolism [facility] Start: 11-15-2024 Cardiac monitoring [facility] Start: 11-15-2024 Catheterization of vein [facility] Start: 11-15-2024 Consultation [facility] Start: 11-15-2024 Elevation of head of bed [facility] Start: 11-15-2024 Exercises [facility] Start: 11-15-2024 Insertion of catheter into peripheral vein [facility] Start: 11-15-2024 Notification of physician [facility] Start: 11-15-2024 Patient referral to dietitian [facility] Start: 11-15-2024 Providing care according to standard [facility] Start: 11-15-2024 Provision of activity privileges [facility] Start: 11-15-2024 Referral to occupational therapist [facility] Start: 11-15-2024 Referral to service [facility] Start: 11-15-2024 Speech therapy assessment [facility] Start: 11-15-2024 Tobacco use cessation education [facility] Start: 11-15-2024 End: 11-15-2024 [facility] Start: 11-15-2024 Vital signs measurements [facility] Start: 11-15-2024 Magnetic resonance angiography of head without contrast MRA Head ONLY without Contrast [facility] Start: 11-15-2024 Magnetic resonance angiography of neck without contrast MRA Neck without Contrast [facility] Start: 11-15-2024 MRI of brain without contrast Brain without Contrast [facility] Start: 11-15-2024 CT of head without contrast Brain/Head without Contrast [facility] Start: 11-15-2024 CT Unspecified body region WO contrast [facility] Start: 11-15-2024 Verification routine [facility] Start: 11-15-2024 Admission procedure [facility] Start: 11-15-2024 Hospital admission, emergency, from emergency room, medical nature [facility] Start: 11-15-2024 Blood culture Blood Culture [facility] Start: 11-15-2024 Chloride measurement, urine [facility] Start: 11-15-2024 Osmolality of Urine [facility] Start: 11-15-2024 Sodium [Moles/volume] in Urine [facility] Start: 11-15-2024 End: 11-15-2024 [facility] Start: 05-13-2024 Medicare Advantage Annual Wellness Visit Medicare Advantage Annual Wellness Visit [facility] Start: 03-17-2024 End: 03-17-2024 Patient encounter procedure 03/17/2024 2:00 PM EST Office Visit [facility] Eisenbergiza[facility] [address] [facility] [address] [place] [phone] Katiana Bragg PA-C [address] [place] [address] [facility] Eisenbergcamillekrist[facility] Start: 03-11-2024 End: 03-11-2024 Patient encounter procedure 03/11/2024 1:40 PM EDT Office Visit [facility] [address] [place] [phone] Guilherme Fallon MD [address] [place] [address] [facility] Start: 02-14-2024 End: 02-14-2024 Patient encounter procedure 02/14/2024 11:15 AM EDT Office Visit [facility] [address] [facility] [address] [place] [address] Katiana Bragg PA-C [address] [place] [address] [facility] Start: 01-12-2024 COVID-19 Vaccine ( season) COVID-19 Vaccine ( season) [facility] Start: 01-12-2024 COVID-19 Vaccine ( season) COVID-19 Vaccine ( season) [facility] Start: 01-12-2024 Influenza vaccination [facility] Start: 11-25-2023 End: 07-15-2024 Patient encounter procedure 11/25/2023 10:20 AM EDT Office Visit [facility] [address] [facility] [address] [place] [phone] Guilherme Fallon MD [address] [place], [place] [phone] [facility] Start: 11-23-2023 Depression Screening Depression Screening [facility] Start: 05-13-2023 Advance Directive Discussion Advance Directive Discussion [facility] Start: 05-13-2023 Medicare Advantage Annual Wellness Visit Medicare Advantage Annual Wellness Visit [facility] Start: 01-11-2023 Covid-19 Vaccine () Covid-19 Vaccine () [facility] Start: 01-11-2023 Influenza vaccination [facility] Start: 01-08-2023 End: 01-08-2023 Patient encounter procedure 01/08/2023 8:00 AM EDT Appointment [facility] [address] [place] [phone] Guilherme Fallon MD [address] [place] [address] [facility] Start: 11-22-2022 End: 11-23-2023 CBC panel - Blood by Automated count CBC Lab Routine Primary hypertension Expected: 11/22/2022 (Approximate), Expires: 11/23/2023 [facility] Work Phone: Comment on above: Expected: 11/22/2022 (Approximate), Expi res: 11/23/2023 Start: 11-22-2022 End: 11-23-2023 Comprehensive metabolic 1998 panel - Serum or Plasma Comprehensive metabolic panel Lab Routine Primary hypertension Expected: 11/22/2022 (Approximate), Expires: 11/23/2023 [facility] Comment on above: Expected: 11/22/2022 (Approximate), Expi res: 11/23/2023 Start: 11-22-2022 End: 11-23-2023 PSA screening PSA Screening Lab Routine Elevated PSA Expected: 11/22/2022 (Approximate), Expires: 11/23/2023 [facility] Comment on above: Expected: 11/22/2022 (Approximate), Expi res: 11/23/2023 Start: 11-22-2022 End: 11-22-2022 Patient encounter procedure [facility] Start: 10-29-2022 End: 10-29-2022 Patient encounter procedure 10/29/2022 Office Visit Family Medicine Guilherme Fallon MD [address] [place] [address] [address] [place], [place] [phone] [facility] Start: 10-28-2022 Annual Wellness Visit (AWV) Annual Wellness Visit (AWV) [facility] Start: 10-27-2022 Depression Screen Depression Screen [facility] Start: 10-27-2022 Prostate specific antigen measurement Prostate Specific Antigen (PSA) Screening or Monitoring [facility] Start: 10-05-2022 End: 10-05-2022 Patient encounter procedure 10/05/2022 Office Visit Family Medicine Guilherme Fallon MD [facility] [address] [place], [place] [phone] [facility] Start: 10-01-2022 End: 10-01-2022 Patient encounter procedure 10/01/2022 Appointment Cardiology [facility] Start: 09-25-2022 End: 09-25-2022 Patient encounter procedure 09/25/2022 Office Visit Sleep Medicine Guilherme Fallon MD [address] [place] [address] [address] [place], [place] [phone] [facility] Start: 09-05-2022 End: 09-06-2023 Thyrotropin [Units/volume] in Serum or Plasma TSH Lab Routine Primary hypertension Elevated TSH Expected: 09/05/2022 (Approximate), Expires: 09/06/2023 [facility] Work Phone: Comment on above: Expected: 09/05/2022 (Approximate), Expi res: 09/06/2023 Start: 09-05-2022 End: 09-06-2023 Thyroxine (T4) free [Mass/volume] in Serum or Plasma T4, free Lab Routine Elevated TSH Expected: 09/05/2022 (Approximate), Expires: 09/06/2023 [facility] Comment on above: Expected: 09/05/2022 (Approximate), Expi res: 09/06/2023 Start: 09-05-2022 End: 09-06-2023 Triiodothyronine (T3) [Mass/volume] in Serum or Plasma T3 Lab Routine Elevated TSH Expected: 09/05/2022 (Approximate), Expires: 09/06/2023 [facility] Comment on above: Expected: 09/05/2022 (Approximate), Expi res: 09/06/2023 Start: 09-05-2022 End: 09-05-2022 Patient encounter procedure 09/05/2022 Office Visit Family Medicine Guilherme Fallon MD [facility] [place] [address] [facility] Start: 08-08-2022 End: 08-09-2023 Home sleep test Home sleep test Sleep Center Routine Primary hypertension Observed sleep apnea Expected: 08/08/2022 (Approximate), Expires: 08/09/2023 [facility] Work Phone: Comment on above: Expected: 08/08/2022 (Approximate), Expi res: 08/09/2023 Start: 08-08-2022 End: 08-09-2023 Lipid 1996 panel - Serum or Plasma Lipid panel Lab Routine Primary hypertension Expected: 08/08/2022 (Approximate), Expires: 08/09/2023 [facility] Comment on above: Expected: 08/08/2022 (Approximate), Expi res: 08/09/2023 Start: 08-08-2022 End: 08-09-2023 Thyrotropin [Units/volume] in Serum or Plasma TSH Lab Routine Primary hypertension Expected: 08/08/2022 (Approximate), Expires: 08/09/2023 [facility] Comment on above: Expected: 08/08/2022 (Approximate), Expi res: 08/09/2023 Start: 08-08-2022 End: 08-08-2024 US Heart Transthoracic Transthoracic echocardiogram (TTE) limited with contrast, bubble, strain, and 3D PRN CV Echocardiography Routine Newly recognized murmur Expected: 08/08/2022 (Approximate), Expires: 08/08/2024 [facility] Comment on above: Expected: 08/08/2022 (Approximate), Expi res: 08/08/2024 Start: 05-13-2022 ADVANCE DIRECTIVE DISCUSSION ADVANCE DIRECTIVE DISCUSSION [facility] Start: 05-13-2022 DEPRESSION ASSESSMENT DEPRESSION ASSESSMENT [facility] Start: 01-11-2022 Influenza vaccination [facility] Start: 01-11-2021 Influenza vaccination Flu vaccine (Season Ended) [facility] Work Phone: Start: 02-05-2020 Annual Wellness Visit (AWV) Annual Wellness Visit (AWV) [facility] Work Phone: Start: 01-12-2020 Influenza vaccination Flu vaccine (#1) [place], [place] Start: 2014 RSV High Risk: (Elderly (60+) or Population) (1 - 1-dose 75+ series) RSV High Risk: (Elderly (60+) or Population) (1 - 1-dose 75+ series) [facility] Start: 2014 RSV Immunization for Adults (1 - 1-dose 75+ series) RSV Immunization for Adults (1 - 1-dose 75+ series) [facility] Start: 07-18-2013 DIABETES SCREEN DIABETES SCREEN [facility] Start: 07-18-2013 Diabetes Screening Diabetes Screening [facility] Start: 2004 Pneumococcal 65+ years Vaccine (1 - PCV) Pneumococcal 65+ years Vaccine (1 - PCV) [facility] Start: 2004 Pneumococcal 65+ years Vaccine (1 of 1 - PPSV23) Pneumococcal 65+ years Vaccine (1 of 1 - PPSV23) [place], [place] Start: 2004 Pneumococcal Vaccine: 65+ (1 - PCV) Pneumococcal Vaccine: 65+ (1 - PCV) [facility] Start: 2004 Pneumococcal Vaccine: 65+ (1 of 1 - PCV) Pneumococcal Vaccine: 65+ (1 of 1 - PCV) [facility] Start: 2004 Pneumococcal Vaccine: 65+ Years (1 - PCV) Pneumococcal Vaccine: 65+ Years (1 - PCV) [facility] Start: 2004 Pneumococcal Vaccine: 65+ Years (1 of 1 - PCV) Pneumococcal Vaccine: 65+ Years (1 of 1 - PCV) [facility] Start: 2004 PNEUMOCOCCAL: 65+ (1 - PCV) PNEUMOCOCCAL: 65+ (1 - PCV) [facility] Start: 1999 RSV Immunization aged 60 or older (1 - 1-dose 60+ series) RSV Immunization aged 60 or older (1 - 1-dose 60+ series) [facility] Start: 1999 RSV patients and/or patients aged 60+ years (1 - 1-dose 60+ series) RSV patients and/or patients aged 60+ years (1 - 1-dose 60+ series) [facility] Start: 1999 RSV Vaccine (1 - 1-dose 60+ series) RSV Vaccine (1 - 1-dose 60+ series) [facility] Start: 1989 Pneumococcal Vaccine: 50+ Years (1 of 1 - PCV) Pneumococcal Vaccine: 50+ Years (1 of 1 - PCV) [facility] Start: 1989 Shingles Vaccine (1 of 2) Shingles Vaccine (1 of 2) [facility] Start: 1989 SHINGRIX VACCINE (1 of 2) SHINGRIX VACCINE (1 of 2) [facility] Start: 1989 Zoster Vaccines (1 of 2) Zoster Vaccines (1 of 2) [facility] Start: 1961 DTaP/Tdap/Td Vaccines (1 - Tdap) DTaP/Tdap/Td Vaccines (1 - Tdap) [facility] Start: 1958 DTaP/Tdap/Td vaccine (1 - Tdap) DTaP/Tdap/Td vaccine (1 - Tdap) [facility] Start: 1958 DTaP/Tdap/Td Vaccines (1 - Tdap) DTaP/Tdap/Td Vaccines (1 - Tdap) [facility] Start: 1958 Urine microalbumin profile [facility] Start: 1957 Anxiety Screening Anxiety Screening [facility] Start: 1957 Depression Screening Depression Screening [facility] Start: 1955 COVID-19 Vaccine (1) COVID-19 Vaccine (1) [facility] Work Phone: Start: 1951 Depression Screening Depression Screening [facility] Start: 1939 COVID-19 Vaccine (#1) COVID-19 Vaccine (#1) [facility] Start: 1939 Annual wellness visit Welcome to Medicare Visit [facility] Start: 1939 Hepatitis B Vaccines (1 of 3 - 3-dose series) Hepatitis B Vaccines (1 of 3 - 3-dose series) [facility] Start: 1940 Medicare Annual Wellness Visit Medicare Annual Wellness Visit (AWV) [facility] End: 01-27-2024 ECG 12 Lead [facility] Service Area Work Phone: Comment on above: Once for 1 Occurrences starting 01/27/20 until 01/27/2024 Hematocrit [Volume F raction] of Blood [facility] Hemoglobin [Mass/vol ume] in Blood [facility] Hemoglobin A1c/Hemog lobin.total in Blood [facility] End: 01-27-2024 Incentive spirometry Instruct Incentive spirometry Instruct Respiratory Care Routine Once for 1 Occurrences starting 01/27/2024 until 01/27/2024 [facility] Work Phone: Comment on above: Once for 1 Occurrences starting 01/27/20 until 01/27/2024 OUTSIDE PROCEDURE SCAN OUTSIDE P ROCEDURE SCAN Procedures Ordered: 08/09/2022 [facility] Comment on above: Ordered: 08/09/2022 OUTSIDE PROCEDURE SCAN OUTSIDE P ROCEDURE SCAN Procedures Ordered: 09/06/2022 [facility] Comment on above: Ordered: 09/06/2022 OUTSIDE PROCEDURE SCAN OUTSIDE P ROCEDURE SCAN Procedures Ordered: 12/07/2022 [facility] Comment on above: Ordered: 12/07/2022 Patient Education ED Pressure In jury ED Wound Care [facility] Work Phone: Removal impacted cer umen irrigation/lvg unilat AMBULATORY EAR LAVAGE/IRRIGATION Procedures Routine Bilateral impacted cerumen Ordered: 01/02/2024 [facility] Work Phone: Comment on above: Ordered: 01/02/2024 End: 02-19-2024 XR Femur - left 2 Views [facility] Work Phone: Comment on above: Once for 1 Occurrences starting 02/19/20 until 02/19/2024 End: 04-16-2024 XR Femur - left 2 Views [facility] Work Phone: Comment on above: Once for 1 Occurrences starting 04/16/20 until 04/16/2024 End: 11-30-2021 XR KNEE LEFT (3 VIEWS) [facility] Work Phone: Comment on above: 1 Occurrences starting 11/30/2021 until 11/30/2021 End: 04-16-2024 XR Pelvis 1 or 2 Views [facility] Service Area Work Phone: Comment on above: Once for 1 Occurrences starting 04/16/20 until 04/16/2024 Payers Date Payer Category Payer Medicare [id number] 2024 Self-pay 2023 Medicare (Managed Care) [facility] [id number] 2023 Unknown [id number] 2022 Medicare [id number] 1.13.680. [id number] 2022 Medicare HMO [employer] [id number]. [id number] 2020 Unknown [id number]. 1.13.159. 2.7.3.626841.315 2019 Unknown [id number] 1.2.840.078701.1.13.239. 2.7.3.502745.315 1939 Unknown [id number] 2.16.840.1.193664.3.579. 2.1245 1939 Unknown [id number] 2.16.840.1.983911.3.579. 2.1245 1939 Unknown [id number] 2.16.840.1.453754.3.579. 2.1245 1939 Unknown [id number] 2.16.840.1.924615.3.579. 2.1242 1939 Unknown [id number] 2.16.840.1.939504.3.579. 2.1242 1939 Unknown [id number] 2.16.840.1.307267.3.579. 2.1242 1939 Unknown [id number] 2.16.840.1.845587.3.579. 2.1243 1939 Unknown [id number] 2.16.840.1.629805.3.579. 2.1243 1939 Unknown [id number] 2.16.840.1.484849.3.579. 2.1243 Unknown [id number] 2.16.840.1.375708.3.579. 2.462 Unknown [id number] 2.16.840.1.223676.3.579. 2.462 Unknown [id number] 2.16.840.1.918297.3.579. 2.462 Unknown [id number] 2.16.840.1.266275.3.579. 2.462 Unknown [id number] 2.16.840.1.420653.3.579. 2.462 Unknown [id number] 2.16.840.1.395599.3.579. 2.462 Unknown [id number] 2.16.840.1.239452.3.579. 2.462 Unknown [id number] 2.16.840.1.775401.3.579. 2.462 Unknown [id number] 2.16.840.1.652857.3.579. 2.462 Social History Date Type Detail Facility Tobacco smoking status KSIS Unknown if ever smoked [place], [place] Start: 1940 Sex Assigned At Not on file M [place], [place] Start: 11-20-2021 End: 04-16-2024 Exposure to SARS-CoV-2 (event) Not sure [place] Start: 08-28-2020 End: 12-04-2024 Tobacco smoking status KSIS Former smoker [facility] Start: 12-09-1974 End: 02-04-1990 History of tobacco use Current smoker [facility] Start: 08-28-2020 End: 08-15-2022 Tobacco use and exposure Never used [facility] Start: 08-28-2020 End: 11-22-2022 Alcohol intake Current drinker of alcohol (finding) [facility] Work Phone: Start: 12-09-1974 End: 02-04-1990 History of tobacco use Cigarette Smoker [facility] Work Phone: Start: 10-27-2021 History SDOH Alcohol Frequency 2 [facility] Work Phone: Start: 10-27-2021 History SDOH Alcohol Std Drinks 1 [facility] Work Phone: Start: 10-27-2021 History SDOH Alcohol Comment occ [facility] Work Phone: Start: 10-27-2021 History SDOH Physica l Activity DPW 7 [facility] Work Phone: Start: 10-27-2021 History SDOH Physica l Activity MPS 3 [facility] Work Phone: Start: 10-27-2021 History SDOH Financial 5 [facility] Work Phone: Start: 02-05-2022 End: 11-22-2022 Cigarettes smoked current (pack per day) - Reported 3 [facility] Start: 04-22-2019 Alcohol Comment Occasionally [facility] Start: 08-08-2022 Alcohol Comment half of a glas s of wine with dinner [facility] Start: 10-26-2022 End: 11-22-2022 Tobacco use panel [facility] How often to you hav e a drink containing alcohol? 4 or more times a week [facility] How many standard drinks containing alcohol do you have on a typical day? 1 or 2 [facility] How often do you hav e 6 or more drinks on 1 occasion? Never [facility] National Score (1-100), lower number is lower risk 65 [facility] Start: 01-28-2024 Tobacco smoking status NHIS Never smoked tobacco [facility] How often to you hav e a drink containing alcohol? 2-3 time sa week [facility] Work Phone: How many standard drinks containing alcohol do you have on a typical day? 3 or 4 [facility] Work Phone: In the past 12 months, was there a time when you were not able to pay the mortgage or rent on time? No [facility] Work Phone: Tobacco smoking status NHIS Tobacco smoking consumption unknown [facility] Work Phone: Start: 1940 Sex Assigned At Male W [facility] Start: 12-11-2021 Sex Male (finding) [facility] He alth NEGATED: Highlighted rowStart: NINF History of tobacco use Passive smoker [facility] Work Phone: Medical Equipment Procedure Code Equipment Code Equipment Origin al Text Equipment Identifier Dates Screw, Variable Angle, 46mm, Locking, St - [id number] Start: 01-28-2024 Screw, Variable Angle, 44mm, Locking, St - [id number] Start: 01-28-2024 Screw, Variable Angle, 40mm, Locking, St - [id number] Start: 01-28-2024 Screw, Variable Angle, 36mm, Locking, St - [id number] Start: 01-28-2024 Screw, Variable Angle, 32mm, Locking, St - [id number] Start: 01-28-2024 Screw, Varable Angle Lkg, Self Tap, 3.5 X 38mm - [id number] Start: 01-28-2024 Cable W/Crimp, 1 .7 X 750mm, Ss, Sterile - [id number] Start: 01-28-2024 Screw, Cortical, Self-Tapping, 4.5 X 38 Mm, Stainless Steel - [id number] Start: 01-28-2024 Screw, Lock 5.[address] T25 - [id number] Start: 01-28-2024 Cable W/Crimp, 1 .7 X 750mm, Ss, Sterile - [id number] Start: 01-28-2024 Pin 4.5 Cerclage Positioning - [id number] Start: 01-28-2024 Comment on above: Description: per neil l only jdr 01/28 Screw, Variable Angle, 50mm, Locking, St - [id number] Start: 01-28-2024 Connecting Screw F/Vavppfx Gt Ring Attchmt Plate [id number] Start: 01-28-2024 Comment on above: Description: per neil l only jdr 01/28 8 Hole Ppfx Plate [id number] Start: 01-28-2024 Comment on above: Description: per neil l only jdr 01/28 Gt Attach Plate [id number] Start: 01-28-2024 Comment on above: Description: per neil l only jdr 01/28 Goals Date Patient Goal Desired Activity /State Functional Status Date Assessment Result Facility 11-18-2024 Functional status Ambulates;Stand and piv ot [facility] Work Phone: Mental Status Date Assessment Result Facility 12-04-2024 Cognitive function Level Of Cons ciousness Awake;Alert;Appropriate;Follow s Commands [facility] Work Phone: 11-29-2024 Cognitive function Level Of Cons ciousness Awake;Alert;Appropriate;Follow s Commands [facility] Work Phone: 11-18-2024 Cognitive function [facility]Name [facility]: 11-15-2024 Cognitive function Level Of Cons ciousness Awake;Alert;Appropriate;Follow s Commands [facility] Work Phone: Clinical Notes 08-28-2020 to 12-04-2024 Note Date & Type Note Facility 12-04-2024 Discharge summary [facility] 12-04-2024 Discharge summary Note Date/Time December 04, 2024 3:12pm [facility] Medical Records Department [address] [place] [address] Emergency Department Summary 12/04/24 MR#: [id number] Acct: [id number] Name: PHILLY JOEL Rep #:[id number] : 1940 84 From: Ravinder Richard DO PCP: Dr. Ciro Ku MD Status:[facility] Location: [place] [address] Ravinder Richard DO on 12/04/24 at 1512 Nursing notified me that the patient's blood pressure has become soft therefore we will repeat H&H 2 units of blood will be ordered. I did review the patient'sCTA of his abdomen which the official read per radiology is pending does appear that the patient has evidence of constipation no active extravasation noted per my review. Patient be given a liter of LR. The OR is ready for his endoscopy. 12/04/24 1512<Electronically signed by Ravinder Richard DO> Cosigner Signature (if applicable): cc: Dr. Ciro Ku MD ~* Signed HPI History of Present Illness Chief Complaint: Weakness Narrative Narrative: Patient is a 84-year-old male with past medical history of hyponatremia, hypertension, stage II decubitus ulcer of the sacral region, anemia who presented to the emergency department with with chief complaint of needing evaluation according to his home health aide. According to staff his home health aide called as he had been refusing to eat or drink anything for the lastfew days and they are concerned about this sending him here. Patient himself has no complaints at this point in time. [facility] Medical History Weakness of lower extremity Acute hyponatremia Generalized weakness HTN (hypertension) Home Medications ?Medication ?Instructions ?Recorded ?Last Taken ?Type acetaminophen 325 mg tablet 650 mg (2 x 325 mg) PO Q6H PRN PRN 11/18/24 Unknown Rx Pain 1-10 Or Fever >100.7 #0 tabs cephalexin 500 mg tablet 500 mg PO TID #21 tabs 11/18 Unknown Rx sennosides 8.6 mg-docusate sodium 2 tab PO BID PRN PRN Constipation 11/18/24 U nknown Rx 50 mg tablet (Stimulant Laxative #0 tabs Plus) sodium chloride 1,000 mg soluble 1,000 mg PO TID #0 ta bs 11/18/24 Unknown Rx tablet Allergy/AdvReac Type Severity Reaction Status Date / Time Opioids - Morphine Analogues Allergy Intermediate Other Verified 11/29/24 00:00 Surgical History History of tonsillectomy H/O bilateral hip replacements Social History household members: caregiver housing: house Smoking Status: Former smoker ROS ROS ED ROS Narrative Constitutional: Denies fevers, chills, headaches, lightness, dizziness Eyes: Denies double vision blurry vision Cardiovascular: Denies chest pain Respiratory: Denies coughing wheezing shortness of breath Abdomen: Denies abdominal pain nausea vomit diarrhea : Denies any urinary symptoms Neurological: Patient follow commands and that he was at the hospital the year is 2024 Musculoskeletal: Warm, dry, intact no rashes or lesions noted Skin: Warm, dry, intact no new rashes or lesions noted EXAM Physical Exam Narrative Exam Narrative: General: Patient was lying in bed rest comfortably did not appear to be in acutedistress Head: Atraumatic, normocephalic Eyes: PERRL bilaterally, EOMI bilateral, no conjunctival injection noted Neck: Soft, supple, trachea midline Cardiovascular: Patient bradycardic with a regular rhythm no murmurs gallops rubs noted Respiratory: Clear to auscultation bilaterally Abdomen: Soft, nondistended, no tenderness to palpation Extremities: +5/5 strength noted in the bilateral upper and lower extremities, radial pulses +2/4 in the bilateral extremities, no pedal edema exam Neurological: Patient following commands knew that he was at the hospital the year is 2024 Skin: Warm, dry, tact no rashes lesions noted Const Vital Signs: 12/04/24 10:52 12/04/24 10:56 12/04/24 12:51 Temperature 97.9 F Temperature Source Oral Pulse Rate 58 L 90 Respiratory Rate 10 L 16 Respiratory Effort Normal Non-Labored Respiratory Pattern Normal Blood Pressure 134/62 H 125/70 H Blood Pressure Mean 86 88 Pulse Ox 100 Oxygen Delivery Method Room Air Room Air 12/04/24 13:43 Temperature Temperature Source Pulse Rate 90 Respiratory Rate 17 Respiratory Effort Respiratory Pattern Blood Pressure 122/70 H Blood Pressure Mean 87 Pulse Ox 97 Oxygen Delivery Method Room Air MDM MDM MDM Narrative Medical decision making narrative: Patient is a 84-year-old male who presents to the emergency department with the chief complaint of not eating or drinking anything for the past few days with decreased appetite. Patient will have a workup performed here on the differential diagnosis includes but not limited to electrolyte abnormality, UTI, ACS. Once workup is obtained reviewed he will be reevaluated. Patient's CBC was reviewed and his white blood count was noted be normal at 6.9 hemoglobin was noted to be 8.9 which is a drop from 11/19/2024, count normal at 305. Patient sodium was low indicating hyponatremia at 128 however this is a chronic issue according to previous blood draws, potassium normal at 3.6, creatinine was noted to be normal at 0.70. Patient's AST and ALT are 134 and 77respectively. Patient's urinalysis reviewed showed no evidence of infection. Patient CTA pending Did do rectal exam and he was Hemoccult positive. Nursing notified me that he started having coffee-ground emesis as well. Patient is not on any blood thinner medications. Will type and screen him. Patient was given IV Protonix will be placed on Protonix drip. Will discuss case with hospitalist Dr. Ferris Type and screen added on Will discuss the case with hospitalist for admission. Patient is also placed onProtonix drip. Discussed case with hospitalist Dr. Patterson who accept patient for admission. Notified the patient and the family members at bedside they are agreeable this plan all question concerns answered. Lab Data Labs: Laboratory Results - last 24 hr 12/04/24 12/04/24 12/04/24 10:59 11:58 14:26 WBC 6.9 RBC 3.17 L Hgb 8.9 L Hct 26.9 L MCV 84.9 MCH 28.1 MCHC 33.1 RDW Std Deviation 44.6 H RDW Coeff of Bud 14.4 Plt Count 305 MPV 8.6 Immature Gran % (Auto) 0.600 Neut % (Auto) 71.3 H Lymph % (Auto) 7.2 L Jerome % (Auto) 17.9 H Eos % (Auto) 2.3 Baso % (Auto) 0.7 Absolute Neuts (auto) 5.0 Absolute Lymphs (auto) 0.50 L Nucleated RBC % 0 Sodium 128 L Potassium 3.6 Chloride 92 L Carbon Dioxide 27.8 Anion Gap 8 BUN 18 Creatinine 0.70 Estim Creat Clear Calc 85.44 Est GFR (MDRD) Non-Af 90 BUN/Creatinine Ratio 25.5 H Glucose 118 H Calcium 8.3 Total Bilirubin 0.59 AST 134 H ALT 77 H Alkaline Phosphatase 135 H Total Protein 5.3 L Albumin 2.2 L Globulin 3.1 Albumin/Globulin Ratio 0.7 L Urine Color Yellow Urine Clarity Sl. Cloudy Urine pH 7.0 Ur Specific Wilton 1.010 Urine Protein 30 H Urine Glucose (UA) Normal Urine Ketones Negative Urine Occult Blood Negative Urine Nitrite Negative Urine Bilirubin Negative Urine Urobilinogen 8 H Ur Leukocyte Esterase Negative Urine RBC 0 SEEN Urine WBC 0 SEEN Ur Squamous Epith Cells 0 SEEN Amorphous Sediment 1+ Urine Bacteria 0 SEEN Urine Mucus 0 SEEN Blood Type A POSITIVE Discharge Plan Triage Chief Complaint: Weakness ED Provider: Ravinder Richard Dx/Rx/DC Orders Clinical Impression: Acute upper GI bleed, Coffee ground emesis, History of hypertension, Chronic hyponatremia Prescriptions: No Action acetaminophen 325 mg Tablet 650 mg PO Q6H PRN PRN (Reason: Pain 1-10 Or Fever >100.7) Qty: 0 0RF sennosides-docusate sodium [Stimulant Laxative Plus] 8.6-50 mg Tablet 2 tab PO BID PRN PRN (Reason: Constipation) Qty: 0 0RF sodium chloride 1,000 mg Tablet,Soluble 1,000 mg PO TID Qty: 0 0RF cephalexin 500 mg tablet 500 mg PO TID Qty: 21 0RF Rx Instructions: 1- 3 times a day for 21 doses-start tonight 11/18/2024 Primary Care Provider: Ciro Ku Referrals: Ciro Ku MD [Primary Care Provider] - Print Language: Lao Disposition Disposition: Acute Care Hospital [facility] What to do if you have Problems For any increased pain, shortness of breath, bleeding, nausea or vomiting, chestpain, or any unexpected problems, contact your Primary Care Provider. Call [facility] ([phone]) or report to the closest Emergency Room. Call 911 if necessary. 12/04/24 4841 <Electronically signed by Ravinder Richard DO> Cosigner Signature (if applicable): CC: Dr. Ciro Ku MD ~ Signed [facility] Work Phone: [phone] 781-601407-24-2025 NotePatient does not currently meet our referral criteria. Home-Based Primary Care Programs (current as of 08/2024) [facility]: Medical Care at Home [phone] [facility]: only accepts Medicare Part B and [employer] insurance [phone] [facility]: House Call Program: - [phone] [facility]: This program would work with an office-based PCP to help manage as much as possible without going to the doctor's office [phone] Fallon in case tomorrow's appointment still happens and this information is appropriate. In [facility], the [facility] option may be best given proximity to [place]? Krystal - can you call Dina with this information given Hiarl is out? I strongly recommend they try to keep the appointment with Dr. Fallon tomorrow as at least a starting point.[facility] [id number] Discharge summary [facility] Medical Records Department [address] [place] [address] Emergency Department Summary 11/29/24 MR#: [id number] Acct: [id number] Name: PHILLY JOEL Rep #:[id number] : 1940 84 From: Haris Elise MD PCP: Dr. Guilherme Fallon MD Status:REG ER Location: ED HPI History of Present Illness Chief Complaint: Other, Pain/Inj Detail of Chief Complaint: sacral wounds Informant: patient Narrative Narrative: 84-year-old male who has been generally weak and after walking presenting to [facility] around midnight for evaluation of wounds on his buttocks that have been therefor maybe a little over a week according to him. He denies any fevers chills significant discharge or bleeding from them. He was admitted to [facility] for rehab, but he hated it there and signed out AGAINST MEDICAL ADVICE after 1 day and has a live-in aide at home that has been helping him. He states for the most part, he is lying in bed.He can take some steps with a walker if he has help from his aide. He denies any new symptoms or feeling more poorly than he has in the past week, is just concerned about his sores because they hurt and hehas been doing ointment and dressings on them but they do not seem to be healing. [facility] Medical History Weakness of lower extremity Acute hyponatremia Generalized weakness HTN (hypertension) Home Medications ?Medication ?Instructions ?Recorded ?Last Taken ?Type acetaminophen 325 mg tablet 650 mg (2 x 325 mg) PO Q6H PRN PRN 11/18/24 Unknown Rx Pain 1-10 Or Fever >100.7 #0 tabs cephalexin 500 mg tablet 500 mg PO TID #21 tabs 11/18 Unknown Rx sennosides 8.6 mg-docusate sodium 2 tab PO BID PRN PRN Constipation 11/18/24 Unknown Rx 50 mg tablet (Stimulant Laxative #0 tabs Plus) sodium chloride 1,000 mg soluble 1,000 mg PO TID #0 ta bs 11/18/24 Unknown Rx tablet Allergy/AdvReac Type Severity Reaction Status Date / Time Opioids - Morphine Analogues Allergy Intermediate Other Verified 11/29/24 00:00 Surgical History History of tonsillectomy H/O bilateral hip replacements Social History household members: caregiver housing: house Smoking Status: Former smoker ROS ROS ED Constitutional Constitutional ED: Denies chills or fever(s) Eyes Eyes: Denies change in vision or diplopia ENT ENT ED: Denies rhinorrhea or sore throat Cardiovascular Cardiovascular: Denies chest pain or palpitations Respiratory/Chest Respiratory/Chest: Denies cough or dyspnea Gastrointestinal Gastrointestinal: Denies abdominal pain, diarrhea, nausea or vomiting Genitourinary Genitourinary ED: Denies dysuria or hematuria Musculoskeletal Musculoskeletal: Denies back pain or neck pain Integumentary Reports as per HPI and wounds; Denies abscess or rash Neurologic Neurologic: Denies headache(s), paresthesias or weakness Psychiatric Psychiatric: Denies anxiety or suicidal thoughts EXAM Physical Exam Const Vital Signs: 11/28/24 23:57 11/29/24 00:00 Temperature 99.2 F H 99.2 F H Temperature Source Oral Oral Pulse Rate 76 76 Respiratory Rate 18 18 Blood Pressure 129/65 H 115/69 Blood Pressure Mean 86 84 Pulse Ox 98 98 Oxygen Delivery Method Room Air Room Air Positive well nourished and well developed General Appearance ED: well developed and NAD HEENT Reports moist mucous membranes normocephalic and atraumatic Eyes PERRL and EOMs intact bilaterally Neck full ROM and supple Resp normal respiratory effort GI non-tender and non-distended Auscultation: normoactive bowel sounds Palpation: soft Extremity normal to inspection General Extremety ED: Negative for edema, pulses abnormal or tenderness General Extremity: Negative for edema or pulses abnormal Neuro oriented x3, CN's II-XII intact bilaterally and no sensory deficits noted Sensorium / Orientation: awake and alert Motor Exam: strength 5/5 throughout Skin no rashes or lesions noted Skin Narrative: Patient has 2 small roughly 2 cm each early stage II decubitus ulcers separate from each other in the area of the buttocks, there are some nonblanching erythema but no tenderness away from the ulcerations himself. They do not appear to be infected. There is no midline tenderness. There is no abscess or fullness or fluctuance anywhere and there is no active discharge or bleeding. MDM MDM MDM Narrative Medical decision making narrative: In my judgment these do not appear to be infected. I do not think he needs antibiotics nor does he need testing to search for a deep space tissue involvement. I think he just needs better wound care,as I discussed with the patient they appear to be clean and well cared for, but if he is still putting pressure on them, they are going to take longer to go away and get better. I referred him to [facility] so they can further evaluate but he is here at midnight and there is no one else to see him in the hospital at this time. I amhaving our nurses place some bulky partial pressure relieving dressings on them with some antibiotic ointment he is comfortable with that plan. Discharge Plan Triage Chief Complaint: Other, Pain/Inj ED Provider: Haris Elise Dx/Rx/DC Orders Clinical Impression: Decubitus ulcer of sacral region, stage 2 Instructions: ED Pressure Injury, ED Wound Care Prescriptions: No Action acetaminophen 325 mg Tablet 650 mg PO Q6H PRN PRN (Reason: Pain 1-10 Or Fever >100.7) Qty: 0 0RF sennosides-docusate sodium [Stimulant Laxative Plus] 8.6-50 mg Tablet 2 tab PO BID PRN PRN (Reason: Constipation) Qty: 0 0RF sodium chloride 1,000 mg Tablet,Soluble 1,000 mg PO TID Qty: 0 0RF cephalexin 500 mg tablet 500 mg PO TID Qty: 21 0RF Rx Instructions: 1- 3 times a day for 21 doses-start tonight 11/18/2024 Primary Care Provider: Guilherme Fallon Referrals: Wound Health [Outside] - As soon as possible (call for appt: [phone]) Guilherme Fallon MD [Primary Care Provider] - 1 Week Print Language: Lao Disposition Disposition: Home, Self Care What to do if you have Problems For any increased pain, shortness of breath, bleeding, nausea or vomiting, chestpain, or any unexpected problems, contact your Primary Care Provider. Call [facility] ([phone]) or report tothe closest Emergency Room. Call 911 if necessary. 11/29/24 0030 Cosigner Signature (if applicable): CC: Dr. Guilherme Fallon MD; Wound Center ~ Signed [facility]07-16-2025 Telephone encounter Note* Telephone Encounter - Oxana Michelle - 11/25/2024 8:59 AM EDT Tried calling to schedule. No answer. Vmbox is full Sent BitLeap message. [facility] [id number] Miscellaneous Notes* Telephone Encounter - Oxana Michelle - 11/25/2024 8:59 AM EDT Tried calling to schedule. No answer. Vmbox is full Sent BitLeap message. * Telephone Encounter - Guilherme Fallon MD - 11/25/2024 8:19 AM EDT He will need a face to face visit for the authorization of more at home services so would need an appointment. * Telephone Encounter - Betsy Salamanca - 11/24/2024 11:16 AM EDT Name of caller: dina Contact phone number: [phone] Relationship to Patient: caregiver Provider: Practice: [facility] Chief Complaint/Reason for Call: Dina calling with phone number to [facility] [facility] for the [facility] for in home health care that was authorized by office. Dina states has fax of [phone]. Dina says their phone is [phone]. Dina is requesting authorization be faxed to [facility].Please advise. Best time of day caller can be reached: AM Patient advised that office/PCP has 24-48 business hours to return their call: N/A * Telephone Encounter - Guilherme Fallon MD - 11/23/2024 1:04 PM EDT He has home care I am not sure what status they are referring to. Still would be best to contact APS for follow up to make sure nothing else is needed on their end and any concerns they may have. * Telephone Encounter - Sindi Dacosta - 11/23/2024 9:18 AM EDT Name of caller: Dina Haynes Contact phone number: [phone] Relationship to Patient: Caregiver Provider: Dr. Fallon Practice: [facility] Chief Complaint/Reason for Call: Caller stated APS was out to the home for a visit and everything went well, patient is getting taken care of. Caller is checking on home care status and stated patient needs help SERGIO. Please advise. Thank you. Best time of day caller can be reached: Any Patient advised that office/PCP has 24-48 business hours to return their call: Yes * Telephone Encounter - Guilherme Fallon MD - 11/23/2024 8:31 AM EDT Noted. Can we follow up with APS and see what came of their visit and if they have concerns? * Telephone Encounter - Maria Dolores Bryan - 11/20/2024 4:17 PM EDT Message released to patient as written. I am not sure at this point either. APS was going out today due to the concerns to check and see what he is doing and if he is coherent. If he is not of sound mind he may end up back in for his safety. I suspect that he won't agree with going to the ER as he has not to this point. We may want to call APS again and speak with them for follow up towards the end of the day if possible. Patient's further questions if applicable: Milka stated she feels Pt is coherent just not making the best choices. She stated she will call Pt and advise him to go to the ER. Were all questions from office addressed or relayed to the patient from encounter: Yes * Telephone Encounter - Guilherme Fallon MD - 11/20/2024 1:50 PM EDT I am not sure at this point either. APS was going out today due to the concerns to check and see what he is doing and if he is coherent. If he is not of sound mind he may end up back in for his safety. I suspect that he won't agree with going to the ER as he has not to this point. We may want to call APS again and speak with them for follow up towards the end of the day if possible. * Telephone Encounter - Fermin Brown - 11/20/2024 1:11 PM EDT Name of caller: Milka Contact phone number: [phone] Relationship to Patient: [facility] Provider: Dr. Fallon Practice: [facility] Chief Complaint/Reason for Call: Milka states she is faxing over patients lab draws. States patient has left facility against medical advice. Milka requesting a call back on what to do next. States unsure if she should call patient and advise emergency department. Please advise. Best time of day caller can be reached: any Patient advised that office/PCP has 24-48 business hours to return their call: No * Telephone Encounter - Guilherme Fallon MD - 11/20/2024 9:56 AM EDT Spoke with APS giving details of the concern, signed out AMA after stroke rule out, unable to care for self at home, sitting in urine and feces. Contact info provided. * Telephone Encounter - Milka Rdz MA - 11/20/2024 9:32 AM EDT When I called the [facility] They gave me the number to [facility] because patient lives in [place] Phone number given [phone] I called and left a message on [email or web address] Left back line number * Telephone Encounter - Guilherme Fallon MD - 11/20/2024 9:17 AM EDT From other encounter: S: Patients hospitality housekeeper/caregiver Dina [phone] called the clinical access center with complaint of patient not able to care for himself. B: pt was in [facility] but signed himself out AMA yesterday and he is at home now. A: Dina said the patient sleeps on his couch. He sits in his stool in feces until she is able to get help. She said I can't care for him alone and he is mean to everyone. She said he can't stand alone and she can't lift him. R: She said his insurance will cover in home care and physical therapy if that could be ordered. Reason for Disposition Nursing judgment Protocols used: Information Only Call - No [id number] * Telephone Encounter - Guilherme Fallon MD - 11/20/2024 9:16 AM EDT Please contact APS and inform them of the situation and the urgency - It does not sound like he is able to care for himself nor is he mentally capable, though I have not evaluated him myself. He signed himself out AMA yesterday from the half-way. * Telephone Encounter - Iman Jain - 11/20/2024 8:43 AM EDT Name of caller: Dina Contact phone number: [phone] Relationship to Patient: [facility] Provider: Practice: [facility] Chief Complaint/Reason for Call: iDna calling back in regards to needing verbal orders from Dr Fallon for in home health care. She is very frustrated and doesn't know what to do with pt at the momentsince he's not cooperating with her and is currently sitting in his urine. He has no bed and can't walk. He's refusing to call his daughter and refusing to go to the ER. Dina can't clean him or lift him at all and needs help and needs a 24/hr nurse out to help him. Please call Dina and advise. secure line. Best time of day caller can be reached: any Patient advised that office/PCP has 24-48 business hours to return their call: Yes * Telephone Encounter - Katie Frank - 11/19/2024 10:45 AM EDT Name of caller: Dina Contact phone number: [phone] Relationship to Patient: [facility] Provider: Practice: [facility] Chief Complaint/Reason for Call: Dina needs verbal order that provider will follow patient for homecare orders. Please advise Dina and leave voicemail on secure line. Best time of day caller can be reached: any Patient advised that office/PCP has 24-48 business hours to return their call: Yes documented in this encounterSAdams County [id number] Telephone encounter Note* Telephone Encounter - Guilherme Fallon MD - 11/25/2024 8:19 AM EDT He will need a face to face visit for the authorization of more at home services so would need an appointment. [facility] [id number] Telephone encounter Note* Telephone Encounter - Betsy Salamanca - 11/24/2024 11:16 AM EDT Name of caller: dina Contact phone number: [phone] Relationship to Patient: caregiver Provider: Practice: [facility] Chief Complaint/Reason for Call: Dina calling with phone number to [facility] [facility] the [facility] for in home health care that was authorized by office. Dina matthew has fax of [phone]. Dina says their phone is [phone]. Dina is requesting authorization be faxed to [facility].Please advise. Best time of day caller can be reached: AM Patient advised that office/PCP has 24-48 business hours to return their call: N/A [id number] Telephone encounter Note* Telephone Encounter - Guilherme Fallon MD - 11/23/2024 1:04 PM EDT He has home care I am not sure what status they are referring to. Still would be best to contact APS for follow up to make sure nothing else is needed on their end and any concerns they may have. [id number] Telephone encounter Note* Telephone Encounter - Sindi Dacosta - 11/23/2024 9:18 AM EDT Name of caller: Dina Haynes Contact phone number: [phone] Relationship to Patient: Caregiver Provider: Dr. Fallon Practice: [facility] Chief Complaint/Reason for Call: Caller stated APS was out to the home for a visit and everything went well, patient is getting taken care of. Caller is checking on home care status and stated patient needs help SERGIO. Please advise. Thank you. Best time of day caller can be reached: Any Patient advised that office/PCP has 24-48 business hours to return their call: Yes [id number] Telephone encounter Note* Telephone Encounter - Guilherme Fallon MD - 11/23/2024 8:31 AM EDT Noted. Can we follow up with APS and see what came of their visit and if they have concerns? [facility] [id number] Telephone encounter Note* Telephone Encounter - Maria Dolores Garcia Randi - 11/20/2024 4:17 PM EDT Message released to patient as written. I am not sure at this point either. APS was going out today due to the concerns to check and see what he is doing and if he is coherent. If he is not of sound mind he may end up back in for his safety. I suspect that he won't agree with going to the ER as he has not to this point. We may want to call APS again and speak with them for follow up towards the end of the day if possible. Patient's further questions if applicable: Milka stated she feels Pt is coherent just not making the best choices. She stated she will call Pt and advise him to go to the ER. Were all questions from office addressed or relayed to the patient from encounter: Yes [facility] [id number] Telephone encounter Note* Telephone Encounter - Guilherme Fallon MD - 11/20/2024 1:50 PM EDT I am not sure at this point either. APS was going out today due to the concerns to check and see what he is doing and if he is coherent. If he is not of sound mind he may end up back in for his safety. I suspect that he won't agree with going to the ER as he has not to this point. We may want to call APS again and speak with them for follow up towards the end of the day if possible. [facility] [id number] Telephone encounter Note* Telephone Encounter - Fermin Brown - 11/20/2024 1:11 PM EDT Name of caller: Milka Contact phone number: [phone] Relationship to Patient: [facility] Provider: Dr. Fallon Practice: [facility] Chief Complaint/Reason for Call: Milka states she is faxing over patients lab draws. States patient has left facility against medical advice. Milka requesting a call back on what to do next. States unsure if she should call patient and advise emergency department. Please advise. Best time of day caller can be reached: any Patient advised that office/PCP has 24-48 business hours to return their call: No [facility] [id number] Telephone encounter Note* Telephone Encounter - Guilherme Fallon MD - 11/20/2024 9:56 AM EDT Spoke with APS giving details of the concern, signed out AMA after stroke rule out, unable to care for self at home, sitting in urine and feces. Contact info provided. 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 B: pt was in [facility] but signed himself out AMA yesterday and he is at home now. A: Dina said the patient sleeps on his couch. He sits in his stool in feces until she is able to get help. She said I can't care for him alone and he is mean to everyone. She said he can't stand alone and she can't lift him. R: She said his insurance will cover in home care and physical therapy if that could be ordered. Reason for Disposition Nursing judgment Protocols used: Information Only Call - No [id number] [facility] [id number] Telephone encounter Note* Telephone Encounter - Guilherme Fallon MD - 11/20/2024 9:17 AM EDT Multiple encounters for this. Closing this one. [facility] [id number] Miscellaneous Notes* Telephone Encounter - Guilherme Fallon MD - 11/20/2024 9:17 AM EDT Multiple encounters for this. Closing this one. 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 B: pt was in [facility] but signed himself out AMA yesterday and he is at home now. A: Dina said the patient sleeps on his couch. He sits in his stool in feces until she is able to get help. She said I can't care for him alone and he is mean to everyone. She said he can't stand alone and she can't lift him. R: She said his insurance will cover in home care and physical therapy if that could be ordered. Reason for Disposition Nursing judgment Protocols used: Information Only Call - No [id number] documented in this encounterSAdams County HospitalZyeyjg82-19-1965 Telephone encounter Note* Telephone Encounter - Guilherme Fallon MD - 11/20/2024 9:16 AM EDT Please contact APS and inform them of the situation and the urgency - It does not sound like he is able to care for himself nor is he mentally capable, though I have not evaluated him myself. He signed himself out AMA yesterday from the half-way. 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 B: pt was in [facility] but signed himself out AMA yesterday and he is at home now. A: Dina said the patient sleeps on his couch. He sits in his stool in feces until she is able to get help. She said I can't care for him alone and he is mean to everyone. She said he can't stand alone and she can't lift him. R: She said his insurance will cover in home care and physical therapy if that could be ordered. Reason for Disposition Nursing judgment Protocols used: Information Only Call - No [id number] [facility] [id number] Telephone encounter Note* Telephone Encounter - Iman Jain - 11/20/2024 8:43 AM EDT Name of caller: Dina Contact phone number: [phone] Relationship to Patient: [facility] Provider: Practice: [facility] Chief Complaint/Reason for Call: Dina calling back in regards to needing verbal orders from Dr Fallon for in home health care. She is very frustrated and doesn't know what to do with pt at the momentsince he's not cooperating with her and is currently sitting in his urine. He has no bed and can't walk. He's refusing to call his daughter and refusing to go to the ER. Dina can't clean him or lift him at all and needs help and needs a 24/hr nurse out to help him. Please call Dina and advise. secure line. Best time of day caller can be reached: any Patient advised that office/PCP has 24-48 business hours to return their call: Yes [id number] Telephone encounter Note* Telephone Encounter - Katie Frank - 11/19/2024 10:45 AM EDT Name of caller: Dina Contact phone number: [phone] Relationship to Patient: [facility] Provider: Practice: [facility] Chief Complaint/Reason for Call: Dina needs verbal order that provider will follow patient for homecare orders. Please advise Dina and leave voicemail on secure line. Best time of day caller can be reached: any Patient advised that office/PCP has 24-48 business hours to return their call: Yes [facility] [id number] Discharge summary Author Luca Yeh [facility] Note Date/Time November 18, 2024 3:42p [facility] Medical Records Department [address] [place] [address] Transfer to [facility] MR#: [id number] Acct: [id number] Name: PHILLY JOEL Rep #:[id number] : 1940 84 From: Luca Yeh DO PCP: Dr. Guilherme Fallon MD Status:ADM IN Certification of patient admission REQUIRED AT TIME OF ADMISSION. I CERTIFY THAT POST-HOSPITAL ECF SERVICES ARE REQUIRED TO BE GIVEN ON AN IN-PATIENT BASIS BECAUSE OF THE ABOVE NAMED PATIENT'S NEED FOR JAIL CARE ON A CONTINUING BASIS FOR THE CONDITION(S) FOR WHICH HE/SHE WAS RECEIVING IN-PATIENT HOSPITAL SERVICES PRIOR TO HIS/HER TRANSFER TO THE [facility]. 11/18/24 1542<Electronically signed by Luca Yeh DO> Diet Diet Order/Speech Therapy: INPATIENT Hospital Diet / Speech Therapy Order(s) 11/15/24 15:09 Diet: Cardiac - Heart Healthy Food consistency:: Regular Liquid Consistency:: Regular/Thin Type of Dietary Supplement:: Ensure Plus High Protein Diet Comments: 120ml EPHP with meals Routine Orders/Code Status Code Status: DNRCC-A (No intubation) DC O2, CPAP, BIPAP needs Home O2 Discharge instructions: No Wound(s) Left Elbow: Wound Type: Abrasion Left posterior heel: Wound Type: Abrasion Therapies Weight Bearing: Full weight bearing Physical Therapy: Eval and Treat Occupational Therapy: Eval and Treat Problem/Diagnosis (1) Generalized weakness: Status: Acute Code(s): R53.1 - Weakness Plan 1. Generalized weakness-secondary to deconditioning and advanced age, PT OT will continue to see the patient, he will need temporary placement in a half-way facility due to his debility at the present time. #2 lower extremity weakness-MRI was performed today and it was negative for acute CVA, patient refused to undergo an MRA of the head and neck #3 hyponatremia-etiology unclear we will place the patient on sodium chloride when he is discharged to half-way facility. #4 acute anemia-etiology unclear, patient's hemoglobin appears to be stable at this time #5 bacteremia with strep anginosus-patient underwent an abdominal and pelvic CT today to rule out any abscess, none was seen, patient did have a large amount ofstool however. I have elected to place the patient on 7 days of Keflex for treatment of the bacteremia. #6 severe aortic stenosis-patient will need an appointment in the near future with a TAVR physician for valve replacement Total clinical time spent by myself addressing the patient's medical issues, reviewing all of the data, and collaborating with patient's care team: 35 minutes Allergies/Procedures Done in Hospital Allergies Opioids - Morphine Analogues Allergy (Intermediate, Verified 11/15/24 12:14) Other VIOLENT SHAKES Procedures: 2-D Echocardiogram Type of Care/Length of Stay Estimated LOS: Convalescent Care Less Than 30 days Type of Care Needed: Skilled Rehab Potential: Good Prognosis: Good Additional Orders/Day of Discharge H&P will serve as current which was dated: 11/15/24 Day of Discharge: 11/18/24 Dietary and Speech Recommendations Dietitian Recommendations/Changes: Continue cardiac diet. Will order 120ml EPHP TID with medpass. Will monitor weight trends. Discharge Plan Admission Admit Date/Time: 11/15/24 14:42 Primary Reason for Your Visit: Generalized weakness Attending Provider: Luca Yeh Primary Care Provider: Guilherme Fallon Consulting Providers: Shannan Patterson Instructions Additional Instructions / Restrictions: Patient will need a follow-up appointment after discharge from the assisted with his family physician, he will need to be set up to see a TAVR physician dueto his severe aortic stenosis. Discharge Orders/Prescriptions Prescriptions: New acetaminophen 325 mg Tablet 650 mg PO Q6H PRN PRN (Reason: Pain 1-10 Or Fever >100.7) Qty: 0 0RF sennosides-docusate sodium [Stimulant Laxative Plus] 8.6-50 mg Tablet 2 tab PO BID PRN PRN (Reason: Constipation) Qty: 0 0RF sodium chloride 1,000 mg Tablet,Soluble 1,000 mg PO TID Qty: 0 0RF Referrals / Follow Up: Guilherme Fallon MD [Primary Care Provider] - See Referral Note (A week after discharge from the assisted, you will need to be set up with an appointment to see a TAVR physician regarding your aortic stenosis) NOT,DEFINED [Non-Staff] - Disposition Disposition (needs filled in before D/C Order can be placed): [facility] 11/18/24 1542 <Electronically signed by Luca Yeh DO> Cosigner Signature (if applicable): CC: Dr. Guilherme Fallon MD; Dr. Shannan Patterson MD ~ [facility] Work Phone: 1(124) 436-755307-09-2025 Progress note Author Luca [facility]ures[facility] Note Date/Time November 18, 2024 3:07p [facility] Medical Records Department [address] [place] [address] Progress Note - Hospitalist 11/17/24 1711 MR#: [id number] Acct: [id number] Name: PHILLY JOEL Rep #:[id number] : 1940 84 From: Luca Yeh DO PCP: Dr. Guilherme Fallon MD Status:ADM IN Location: [place] [address] Reason for Visit Reason for Visit: Diagnoses Other symptoms and signs involving the musculoskeletal system (11/15/24) Weakness (11/15/24) Subjective Subjective Patient was seen and examined today, we are currently awaiting approval for him to go to an extended care facility for short-term rehab services. Neurology texted me today and did not feel they needed to see the patient in consultation due to the negative MRI-I agreed, it appears that the consultation was already canceled or was never put in to begin with. Objective Data Objective Data Vital Signs: Vital Signs Temp Pulse Resp BP Pulse Ox O2 Del Method 98.6 F 71 16 177/84 H 100 Room Air 11/17/24 14:15 11/17/24 14:15 11/17/24 14:15 11/17/24 14:15 11/17/24 14:15 11/17/24 14:15 Oxygen Delivery Method Room Air Weight: 96.6 kg Body Mass Index (BMI) 27.3 Intake & Output: Intake and Output for Last 24 Hours 11/15/24 11/16/24 11/17/24 23:59 23:59 23:59 Intake Total 1646.67 / 1646.67 530 / 530 900 / 900 Output Total 400 / 400 550 / 950 1300 / 1300 Balance 1246.67 / 1246.67 -20 / -420 -400 / -400 Lab / Micro Data 11/17/24 09:08 11/17/24 09:08 Labs: Laboratory Results - last 24 hr 11/17/24 09:08: WBC 9.9, RBC 3.89 L, Hgb 11.4 L, Hct 33.2 L, MCV 85.3, MCH 29.3,MCHC 34.3, RDW Std Deviation 45.9 H, RDW Coeff of Bud 14.6, Plt Count 328, MPV 9.1, Immature Gran % (Auto) 0.900, Neut % (Auto) 81.9 H, Lymph % (Auto) 6.1 L, Jerome % (Auto) 10.0, Eos % (Auto) 0.8, Baso % (Auto) 0.3, Absolute Neuts (auto) 8.1 H, Absolute Lymphs (auto) 0.60 L, Nucleated RBC % 0, Sodium 127 L, Potassium4.7, Chloride 95 L, Carbon Dioxide 23.1, Anion Gap 9, BUN 17, Creatinine 0.70, Estim Creat Clear Calc 78.49, Est GFR (MDRD) Non-Af 90, BUN/Creatinine Ratio 24.6 H, Glucose 117 H, Calcium 8.2 Micro: Microbiology 11/15/24 20:00 Blood Culture (Wb) - Anticubital Right Bacteria Detection (PCR) - Final Strep anginosus 11/15/24 20:00 Blood Culture (Wb) - Anticubital Right Blood Culture - Preliminary Physical Exam Narrative alert, oriented x3, no apparent distress and average body habitus General Appearance: cooperative, well kempt and well developed Orientation / Consciousness: awake, oriented to person, oriented to place and oriented to time HEENT normocephalic and moist oral mucous membranes Eyes PERRL, EOMs intact bilaterally and conjunctivae normal Neck supple, no JVD, thyroid normal and no carotid bruits General: trachea midline Resp normal respiratory effort, no retractions, no use of accessory muscles and clearto auscultation bilaterally Auscultation: Negative for rales, rhonchi or wheezes Cardio regular rate, regular rhythm, S1 normal heart sound, S2 normal heart sound, no murmurs, no rub and no gallops GI normal to inspection, nondistended, normoactive bowel sounds, soft to palpation,non-tender and non-distended Extremity no clubbing, cyanosis or edema Skin no rashes or lesions noted General Skin Exam: no breakdown Neuro oriented x3, CN's II-XII intact bilaterally, no focal motor deficits and no sensory deficits noted Sensorium / Orientation: awake and alert Speech: speech normal Psych affect normal Assessment & Plan Assessment/Plan (1) Generalized weakness: PLAN: Plan 1. Generalized weakness-secondary to deconditioning and advanced age, PT OT will continue to see the patient, he will need temporary placement in a half-way facility due to his debility at the present time. #2 lower extremity weakness-MRI was performed today and it was negative for acute CVA, patient refused to undergo an MRA of the head and neck #3 hyponatremia-etiology unclear #4 acute anemia-CBC will be repeated tomorrow, patient has no signs of gastrointestinal bleeding at this time or other reasons for blood loss. Total clinical time spent by myself addressing the patient's medical issues, reviewing all of the data, and collaborating with patient's care team: 35 minutes Charges/Coding Visit Charges Inpatient E&M: 41580 Subs Hosp L2 NIHSS NIHSS Nursing Documentation NIHSS Nursing Documentation: NIHSS: Ischemic Stroke/TIA Start: 11/15/24 15:09 Text: For PCU Patients: NIH and Neuro Check every 4 Status: Complete hours, PRN and with change in RN caregiver. Freq: [id number] Protocol: Activity Type Activity Date Activity User E-sign Co-sign Detail Recorded Client Recorded Date Recorded By Document 11/16/24 08:25 KARLA 0 11/16/24 08:33 KARLA 11/16/24 08:25 NIH Stroke Scale [NIHSS] A score of 0 is normal or asymptomatic . Total possible score is 42. Inpatient: RN or Physician to activate a stroke alert for onset of new stroke symptoms or with NIHSS increase >/= 3 points. Following change in neurological status, NIHSS will be performed per physician order or more frequently PRN. -1a. Level of Consciousness 0 - Alert; keenly responsive -1b. LOC Questions 0 - Answers BOTH questions correctly -1c. LOC Commands 0 - Performs BOTH tasks correctly -2. Best Gaze 0 - Normal -3. Visual 0 - No visual loss -4. Facial Palsy 0 - Normal symmetrical movements -5a. Left Arm 0 - No drift; arm holds 90 ( or 45) degrees for full 10 seconds -5b. Right Arm 0 - No drift; arm holds 90 ( or 45) degrees for full 10 seconds -6a. Left Leg 3 - No effort against gravity ; leg falls to bed immediately -6b. Right Leg 2 - Some effort against gravity; -7. Limb Ataxia UN - Amputation or joint fusion, explain -'UN' explanation B/L hip pain, attempted to assist with heel/menchaca and pt unable to do -8. Sensory 0 - Normal; no sensory loss -9. Best Language 0 - No aphasia; normal -10. Dysarthria 0 - Normal -11. Extinction and Inattention 0 - No abnormality -Total 5 Query Text:A score of 0 is normal or asymptomatic. Total possible score is 42 . ED: Notify Physician for NIHSS increase by > / = 3 points. Inpatient: RN or Physician to activate a stroke alert for NIHSS increase of > / = 3 points. Coma Scale [Assess] -Eye Opening Spontaneous -Motor Obeys Commands -Verbal Oriented [Total] -Coma Scale Total 15 11/18/24 1507 <Electronically signed by Luca Yeh DO> Cosigner Signature (if applicable): CC: ~ Signed [facility] Work Phone: [phone]) 458-377707-09-2025 Discharge summary [facility] Medical Records Department [address] [place] [address] Transfer to [facility] MR#: [id number] Acct: [id number] Name: PHILLY JOEL Rep #:[id number] : 1940 84 From: Luca Yeh DO PCP: Dr. Guilherme Fallon MD Status:ADM IN Certification of patient admission REQUIRED AT TIME OF ADMISSION. I CERTIFY THAT POST-HOSPITAL ECF SERVICES ARE REQUIRED TO BE GIVEN ON AN IN-PATIENT BASIS BECAUSE OF THE ABOVE NAMED PATIENT'S NEED FOR JAIL CARE ON A CONTINUING BASIS FOR THE CONDITION(S) FOR WHICH HE/SHE WAS RECEIVING IN-PATIENT HOSPITAL SERVICES PRIOR TO HIS/HER TRANSFER TO THE F. 11/18/24 1542 Diet Diet Order/Speech Therapy: INPATIENT Hospital Diet / Speech Therapy Order(s) 11/15/24 15:09 Diet: Cardiac - Heart Healthy Food consistency:: Regular Liquid Consistency:: Regular/Thin Type of Dietary Supplement:: Ensure Plus High Protein Diet Comments: 120ml EPHP with meals Routine Orders/Code Status Code Status: DNRCC-A (No intubation) DC O2, CPAP, BIPAP needs Home O2 Discharge instructions: No Wound(s) Left Elbow: Wound Type: Abrasion Left posterior heel: Wound Type: Abrasion Therapies Weight Bearing: Full weight bearing Physical Therapy: Eval and Treat Occupational Therapy: Eval and Treat Problem/Diagnosis (1) Generalized weakness: Status: Acute Code(s): R53.1 - Weakness Plan 1. Generalized weakness-secondary to deconditioning and advanced age, PT OT will continue to see the patient, he will need temporary placement in a half-way facility due to his debility at thepresent time. #2 lower extremity weakness-MRI was performed today and it was negative for acute CVA, patient refused to undergo an MRA of the head and neck #3 hyponatremia-etiology unclear we will place the patient on sodium chloride when he is dischargedto half-way facility. #4 acute anemia-etiology unclear, patient's hemoglobin appears to be stable at this time #5 bacteremia with strep anginosus-patient underwent an abdominal and pelvic CT today to rule out any abscess, none was seen, patient did have a large amount ofstool however. I have elected to place the patient on 7 days of Keflex for treatment of the bacteremia. #6 severe aortic stenosis-patient will need an appointment in the near future with a TAVR physicianfor valve replacement Total clinical time spent by myself addressing the patient's medical issues, reviewing all of the data, and collaborating with patient's care team: 35 minutes Allergies/Procedures Done in Hospital Allergies Opioids - Morphine Analogues Allergy (Intermediate, Verified 11/15/24 12:14) Other VIOLENT SHAKES Procedures: 2-D Echocardiogram Type of Care/Length of Stay Estimated LOS: Convalescent Care Less Than 30 days Type of Care Needed: Skilled Rehab Potential: Good Prognosis: Good Additional Orders/Day of Discharge H&P will serve as current which was dated: 11/15/24 Day of Discharge: 11/18/24 Dietary and Speech Recommendations Dietitian Recommendations/Changes: Continue cardiac diet. Will order 120ml EPHP TID with medpass. Will monitor weight trends. Discharge Plan Admission Admit Date/Time: 11/15/24 14:42 Primary Reason for Your Visit: Generalized weakness Attending Provider: Luca Yeh Primary Care Provider: Guilherme Fallon Consulting Providers: Shannan Patterson Instructions Additional Instructions / Restrictions: Patient will need a follow-up appointment after discharge from the assisted with his family physician, he will need to be set up to see a TAVR physician dueto his severe aortic stenosis. Discharge Orders/Prescriptions Prescriptions: New acetaminophen 325 mg Tablet 650 mg PO Q6H PRN PRN (Reason: Pain 1-10 Or Fever >100.7) Qty: 0 0RF sennosides-docusate sodium [Stimulant Laxative Plus] 8.6-50 mg Tablet 2 tab PO BID PRN PRN (Reason: Constipation) Qty: 0 0RF sodium chloride 1,000 mg Tablet,Soluble 1,000 mg PO TID Qty: 0 0RF Referrals / Follow Up: Guilherme Fallon MD [Primary Care Provider] - See Referral Note (A week after discharge from the assisted, you will need to be set up with an appointment to see a TAVR physician regarding your aorticstenosis) NOT,DEFINED [Non-Staff] - Disposition Disposition (needs filled in before D/C Order can be placed): [facility] 11/18/24 1542 Cosigner Signature (if applicable): CC: Dr. Guilherme Fallon MD; Dr. Shannan Patterson MD ~ [facility]07-09-2025 [facility] Medical Records Department [address] [place] [address] Discharge Summary 11/18/24 1542 MR#: [id number] Acct: [id number] Name: PHILLY JOEL Rep #: [id number] : 1940 84 From: Luca Yeh DO PCP: Dr. Guilherme Fallon MD Status:DIS IN [id number] Providers Date of Admission: 11/15/24 Date of Discharge: 11/18/24 Primary Care Physician: Dr. Guilherme Fallon MD Reason For Visit: CVA R/O Diagnosis Discharge Diagnosis (1) Generalized weakness: Status: Acute Code(s): R53.1 - Weakness Plan 1. Generalized weakness-secondary to deconditioning and advanced age, PT OT will continue to see the patient, he will need temporary placement in a half-way facility due to his debility at the present time. #2 lower extremity weakness-MRI was performed today and it was negative for acute CVA, patient refused to undergo an MRA of the head and neck #3 hyponatremia-etiology unclear we will place the patient on sodium chloride when he is discharged to half-way facility. #4 acute anemia-etiology unclear, patient's hemoglobin appears to be stable at this time #5 bacteremia with strep anginosus-patient underwent an abdominal and pelvic CT today to rule out any abscess, none was seen, patient did have a large amount of stool however. I have elected to place the patient on 7 days of Keflex for treatment of the bacteremia. #6 severe aortic stenosis-patient will need an appointment in the near future with a TAVR physician for valve replacement Total clinical time spent by myself addressing the patient's medical issues, reviewing all of the data, and collaborating with patient's care team: 35 minutes Medications at Discharge Home Medications acetaminophen 325 mg tablet 650 mg (2 x 325 mg) PO Q6H PRN PRN Pain 1-10 Or Fever >100.7 #0 tabs 11/18/24 cephalexin 500 mg tablet 500 mg PO TID #21 tabs 11/18/24 sennosides 8.6 mg-docusate sodium 50 mg tablet (Stimulant Laxative Plus) 2 tab PO BID PRN PRN Constipation #0 tabs 11/18/24 sodium chloride 1,000 mg soluble tablet 1,000 mg PO TID #0 tabs 11/18/24 Hospital Course Operations None Procedures None Summary of Care Provided Minutes Spent on Discharge: 31 Hospital Course: This 84-year-old white male was seen in the emergency room at [facility] with chief complaint of generalized weakness, patient lives alone in his apartment normally he has a home health aide but she has been gone for several days. Workup in the emergency room included a CBC which was abnormal for hemoglobin of 12.5, chemistry panel was abnormal for a sodium of 126, and urinalysis was unremarkable. Patient was admitted to PCU for generalized weakness and hyponatremia, he was seen by PT and OT and it was recommended that he go to a half-way facility for short- term rehab services. On 11/18/2024, patient was seen and examined:alert, oriented x3, no apparent distress and average body habitus General Appearance: cooperative, well kempt and well developed Orientation / Consciousness: awake, oriented to person, oriented to place and oriented to time HEENT normocephalic and moist oral mucous membranes Eyes PERRL, EOMs intact bilaterally and conjunctivae normal Neck supple, no JVD, thyroid normal and no carotid bruits General: trachea midline Resp normal respiratory effort, no retractions, no use of accessory muscles and clear to auscultation bilaterally Auscultation: Negative for rales, rhonchi or wheezes Cardio regular rate, regular rhythm, S1 normal heart sound, S2 normal heart sound, no murmurs, no rub and no gallops GI normal to inspection, nondistended, normoactive bowel sounds, soft to palpation, non-tender and non- distended Extremity no clubbing, cyanosis or edema Skin no rashes or lesions noted General Skin Exam: no breakdown Neuro oriented x3, CN's II-XII intact bilaterally, no focal motor deficits and no sensory deficits noted Sensorium / Orientation: awake and alert Speech: speech normal Psych affect normal On 11/18/2024, patient was transferred to [facility] in stable condition for inpatient skilled care. Weight / BMI Weight Weight: 96.6 kg Body Mass Index (BMI) 27.3 ABG / Lab / Microbiology Data 11/17/24 09:08 11/17/24 09:08 Microbiology: Microbiology 11/15/24 20:00 Blood Culture (Wb) - Anticubital Right Bacteria Detection (PCR) - Final Strep anginosus 11/15/24 20:00 Blood Culture (Wb) - Anticubital Right Blood Culture - Final Strep anginosus Radiography Diagnostic Testing: Radiology Impression Abdomen/Pelvis CT 11/18/24 11:40 IMPRESSION: 1. Constipation with suggestion of fecal impaction of the rectum. 2. Moderate esophageal hiatal hernia. 3. Hepatomegaly with fatty infiltration. 4. (more content not included)...[facility]07-09-2025 Progress note [facility] Medical Records Department [address] [place] [address] Progress Note - Hospitalist 11/17/24 1711 MR#: [id number] Acct: [id number] Name: PHILLY JOEL Rep #:[id number] : 1940 84 From: Luca Yeh DO PCP: Dr. Guilherme Fallon MD Status:ADM IN Location: [place] [address]- 1 Reason for Visit Reason for Visit: Diagnoses Other symptoms and signs involving the musculoskeletal system (11/15/24) Weakness (11/15/24) Subjective Subjective Patient was seen and examined today, we are currently awaiting approval for him to go to an extended care facility for short-term rehab services. Neurology texted me today and did not feel they needed to see the patient in consultation due to the negative MRI-I agreed, it appears that the consultation was already canceled or was never put in to begin with. Objective Data Objective Data Vital Signs: Vital Signs Temp Pulse Resp BP Pulse Ox O2 Del Method 98.6 F 71 16 177/84 H 100 Room Air 11/17/24 14:15 11/17/24 14:15 11/17/24 14:15 11/17/24 14:15 11/17/24 14:15 11/17/24 14:15 Oxygen Delivery Method Room Air Weight: 96.6 kg Body Mass Index (BMI) 27.3 Intake & Output: Intake and Output for Last 24 Hours 11/15/24 11/16/24 11/17/24 23:59 23:59 23:59 Intake Total 1646.67 / 1646.67 530 / 530 900 / 900 Output Total 400 / 400 550 / 950 1300 / 1300 Balance 1246.67 / 1246.67 -20 / -420 -400 / -400 Lab / Micro Data 11/17/24 09:08 11/17/24 09:08 Labs: Laboratory Results - last 24 hr 11/17/24 09:08: WBC 9.9, RBC 3.89 L, Hgb 11.4 L, Hct 33.2 L, MCV 85.3, MCH 29.3,MCHC 34.3, RDW Std Deviation 45.9 H, RDW Coeff of Bud 14.6, Plt Count 328, MPV 9.1, Immature Gran % (Auto) 0.900, Neut % (Auto) 81.9 H, Lymph % (Auto) 6.1 L, Jerome % (Auto) 10.0, Eos % (Auto) 0.8, Baso % (Auto) 0.3, Absolute Neuts (auto) 8.1 H, Absolute Lymphs (auto) 0.60 L, Nucleated RBC % 0, Sodium 127 L, Potassium4.7, Chloride 95 L, Carbon Dioxide 23.1, Anion Gap 9, BUN 17, Creatinine 0.70, Estim Creat Clear Calc 78.49, Est GFR (MDRD) Non-Af 90, BUN/Creatinine Ratio 24.6 H, Glucose 117 H, Calcium 8.2 Micro: Microbiology 11/15/24 20:00 Blood Culture (Wb) - Anticubital Right Bacteria Detection (PCR) - Final Strep anginosus 11/15/24 20:00 Blood Culture (Wb) - Anticubital Right Blood Culture - Preliminary Physical Exam Narrative alert, oriented x3, no apparent distress and average body habitus General Appearance: cooperative, well kempt and well developed Orientation / Consciousness: awake, oriented to person, oriented to place and oriented to time HEENT normocephalic and moist oral mucous membranes Eyes PERRL, EOMs intact bilaterally and conjunctivae normal Neck supple, no JVD, thyroid normal and no carotid bruits General: trachea midline Resp normal respiratory effort, no retractions, no use of accessory muscles and clearto auscultation bilaterally Auscultation: Negative for rales, rhonchi or wheezes Cardio regular rate, regular rhythm, S1 normal heart sound, S2 normal heart sound, no murmurs, no rub and no gallops GI normal to inspection, nondistended, normoactive bowel sounds, soft to palpation,non-tender and non-distended Extremity no clubbing, cyanosis or edema Skin no rashes or lesions noted General Skin Exam: no breakdown Neuro oriented x3, CN's II-XII intact bilaterally, no focal motor deficits and no sensory deficits noted Sensorium / Orientation: awake and alert Speech: speech normal Psych affect normal Assessment & Plan Assessment/Plan (1) Generalized weakness: PLAN: Plan 1. Generalized weakness-secondary to deconditioning and advanced age, PT OT will continue to see the patient, he will need temporary placement in a half-way facility due to his debility at thepresent time. #2 lower extremity weakness-MRI was performed today and it was negative for acute CVA, patient refused to undergo an MRA of the head and neck #3 hyponatremia-etiology unclear #4 acute anemia-CBC will be repeated tomorrow, patient has no signs of gastrointestinal bleeding atthis time or other reasons for blood loss. Total clinical time spent by myself addressing the patient's medical issues, reviewing all of the data, and collaborating with patient's care team: 35 minutes Charges/Coding Visit Charges Inpatient E&M: 82111 Subs Hosp L2 NIHSS NIHSS Nursing Documentation NIHSS Nursing Documentation: NIHSS: Ischemic Stroke/TIA Start: 11/15/24 15:09 Text: For PCU Patients: NIH and Neuro Check every 4 Status: Complete hours, PRN and with change in RN caregiver. Freq: [id number] Protocol: Activity Type Activity Date Activity User E-sign Co-sign Detail Recorded Client Recorded Date Recorded By Document 11/16/24 08:25 JMN 0 11/16/24 08:33 JMTonya 11/16/24 08:25 NIH Stroke Scale [NIHSS] A score of 0 is normal or asymptomatic . Total possible score is 42. Inpatient: RN or Physician to activate a stroke alert for onset of new stroke symptoms or with NIHSS increase >/= 3 points. Following change in neurological status, NIHSS will be performed per physician order or more frequently PRN. -1a. Level of Consciousness 0 - Alert; keenly responsive -1b. LOC Questions 0 - Answers BOTH questions correctly -1c. LOC Commands 0 - Performs BOTH tasks correctly -2. Best Gaze 0 - Normal -3. Visual 0 - No visual loss -4. Facial Palsy 0 - Normal symmetrical movements -5a. Left Arm 0 - No drift; arm holds 90 ( or 45) degrees for full 10 seconds -5b. Right Arm 0 - No drift; arm holds 90 ( or 45) degrees for full 10 seconds -6a. Left Leg 3 - No effort against gravity ; leg falls to bed immediately -6b. Right Leg 2 - Some effort against gravity; -7. Limb Ataxia UN - Amputation or joint fusion, explain -'UN' explanation B/L hip pain, attempted to assist with heel/menchaca and pt unable to do -8. Sensory 0 - Normal; no sensory loss -9. Best Language 0 - No aphasia; normal -10. Dysarthria 0 - Normal -11. Extinction and Inattention 0 - No abnormality -Total 5 Query Text:A score of 0 is normal or asymptomatic. Total possible score is 42 . ED: Notify Physician for NIHSS increase by > / = 3 points. Inpatient: RN or Physician to activate a stroke alert for NIHSS increase of > / = 3 points. Coma Scale [Assess] -Eye Opening Spontaneous -Motor Obeys Commands -Verbal Oriented [Total] -Coma Scale Total 15 11/18/24 1507 Cosigner Signature (if applicable): CC: ~ Signed [facility]07-09-2025 Hospital Discharge instructionsAdditional Instructions Patient will need a follow-up appointment after discharge from the assisted with his family physician, he will need to be set up to see a TAVR physician due to his severe aortic stenosis. Date of Discharge: 11/18/24[facility] Work Phone: 1(223) 369-610107-09-2025 Radiology Diagnostic study note [facility] Imaging Services [address] [place], [place] [id number] Abdomen/Pelvis W IV Cont ONLY MR#: [id number] Acct: [id number] Name: PHILLY JOEL Rep #: [id number] : 1940 M 84 From: Fidelia Albarran MD PCP: Dr. Guilherme Fallon MD Status: ADM IN Study:Abdomen/Pelvis W IV Cont ONLY Date of E xam: 11/18/24 Exam# [id number] Ordering Dr: Luca Lei DO EXAM: CT Abdomen and Pelvis With Intravenous Contrast CLINICAL INDICATION: POSITIVE BLOOD CULTURE, RULE OUT ABSCESS TECHNIQUE: Axial computed tomography images of the abdomen and pelvis with intravenous contrast. This CT exam was performed using one or more of the following dose reduction techniques: automated exposure control, adjustment of the mA and/or kV according to patient size, and/or use of iterative reconstruction technique. COMPARISON: No relevant prior studies available. FINDINGS: LUNG BASES: See below. PLEURAL SPACE: Bilateral pleural effusion with compressive atelectasis. MEDIASTINUM: Moderate esophageal hiatal hernia. ABDOMEN: LIVER: Hepatomegaly with fatty infiltration. GALLBLADDER AND BILE DUCTS: Unremarkable. No calcified stones. No ductal dilation. PANCREAS: Unremarkable. No mass. No ductal dilation. SPLEEN: Unremarkable. No splenomegaly. ADRENALS: Unremarkable. No mass. KIDNEYS AND URETERS: 8.4 cm simple right renal cyst. No hydronephrosis. STOMACH AND BOWEL: Constipation with suggestion of fecal impaction of the rectum. Fecal retention in the colon consistent with constipation. No obstruction. No mucosal thickening. PELVIS: APPENDIX: No findings to suggest acute appendicitis. BLADDER: Unremarkable. No mass. REPRODUCTIVE: Unremarkable as visualized. ABDOMEN and PELVIS: INTRAPERITONEAL SPACE: Unremarkable. No free air. No significant fluid collection. 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 No acute fracture. No dislocation. SOFT TISSUES: Unremarkable. VASCULATURE: Scattered calcified atherosclerotic disease of aorta. No abdominal aortic aneurysm. LYMPH NODES: Unremarkable. No enlarged lymph nodes. CT/Abdomen/Pelvis W IV Cont ONLY IMPRESSION: 1. Constipation with suggestion of fecal impaction of the rectum. 2. Moderate esophageal hiatal hernia. 3. Hepatomegaly with fatty infiltration. 4. Fecal retention in the colon consistent with constipation. 5. 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 6. Bilateral pleural effusion with compressive atelectasis. 7. 8.4 cm simple right renal cyst. Reading Location: [facility] CC: Dr. Guilherme Fallon MD; Dr. Luca Yeh DO ~ General Forecaster: Signed [facility]07-08-2025 Progress note Author Luca Yeh [facility] Note Date/Time November 17, 2024 8:35a m [facility] Medical Records Department [address] [place] [address] Progress Note - Hospitalist 11/16/24 1847 MR#: [id number] Acct: [id number] Name: PHILLY JOEL Rep #:[id number] : 1940 84 From: Luca Yeh DO PCP: Dr. Guilherme Fallon MD Status:ADM IN Location: [place] [address] Reason for Visit Reason for Visit: Diagnoses Other symptoms and signs involving the musculoskeletal system (11/15/24) Subjective Subjective Patient was seen and examined today, he consented to an MRI of the brain but refused to have an MRA of the head and neck performed. MRI of the brain was unremarkable. Due to patient's weakness with PT and OT, he requested to go to [facility] for inpatient skilled services. Patient lives by himself and has minimal aides to help take care of him. Objective Data Objective Data Vital Signs: Vital Signs Temp Pulse Resp BP Pulse Ox O2 Del Method 98.1 F 63 18 119/70 97 Room Air 11/16/24 14:54 11/16/24 14:54 11/16/24 14:54 11/16/24 14:54 11/16/24 14:54 11/16/24 14:54 Oxygen Delivery Method Room Air Weight: 96.6 kg Body Mass Index (BMI) 27.3 Intake & Output: Intake and Output for Last 24 Hours 11/14/24 11/15/24 11/16/24 23:59 23:59 23:59 Intake Total 1646.67 / 1646.67 290 / 290 Output Total 400 / 400 100 / 100 Balance 1246.67 / 1246.67 190 / 190 Lab / Micro Data 11/16/24 05:49 11/16/24 05:49 Labs: Laboratory Results - last 24 hr 11/15/24 13:42: Urine Osmolality 670, Ur Random Sodium 68, Urine Creatinine 121.00, Urine Potassium 47.2, Urine Chloride < 20, Urine Urea Nitrogen 1156 11/15/24 20:00: Sodium 127 L, Potassium 4.0, Chloride 96 L, Carbon Dioxide 22.7,Anion Gap 9, BUN 22 H, Creatinine 0.79, Estim Creat Clear Calc 78.49, Est GFR (MDRD) Non-Af 87, BUN/Creatinine Ratio 27.9 H, Glucose 149 H, Calcium 8.0 11/16/24 05:49: WBC 8.7, RBC 3.48 L, Hgb 10.3 L, Hct 29.8 L, MCV 85.6, MCH 29.6,MCHC 34.6 D, RDW Std Deviation 45.9 H, RDW Coeff of Bud 14.7 H, Plt Count 242, MPV 9.5, Immature Gran % (Auto) 1.000 H, Neut % (Auto) 80.3 H, Lymph % (Auto) 5.5 L, Jerome % (Auto) 12.3 H, Eos % (Auto) 0.6, Baso % (Auto) 0.3, Absolute Neuts(auto) 7.0, Absolute Lymphs (auto) 0.48 L, Nucleated RBC % 0, PT 15.9 H, INR 1.3, Sodium 127 L, Potassium 3.9, Chloride 95 L, Carbon Dioxide 23.7, Anion Gap 9, BUN 19, Creatinine 0.72, Estim Creat Clear Calc 78.49, Est GFR (MDRD) Non-Af 90, BUN/Creatinine Ratio 26.3 H, Glucose 122 H, Hemoglobin A1c 5.2, Calcium 8.0,Magnesium 2.0, Triglycerides 49, Cholesterol 91, LDL Cholesterol, Calc 54, VLDL Cholesterol 10, HDL Cholesterol 27 L, Cholesterol/HDL Ratio 3.33 Radiography Diagnostic Testing: Radiology Impression Echocardiogram 11/15/24 15:02 Interpretation Summary Normal LV size. Left ventricular systolic function is normal. Stage 1 diastolic dysfunction. The left ventricular ejection fraction is 60 %. Mean aortic valve gradient 53 mmHg. Moderate focal aortic valve calcification. Severe aortic stenosis. Ordering Physician: Shannan Patterson Performed By: Carmine Florian RCS Hip/Pelvis X-Ray 11/15/24 16:50 IMPRESSION: No acute fracture identified. Hardware as described above. Reading Location: [facility] Chest X-Ray 11/15/24 22:50 IMPRESSION: No radiographic evidence of an acute cardiopulmonary process. Reading Location: [facility] Brain MRI 11/16/24 06:00 IMPRESSION: No evidence of restricted diffusion. No acute brain abnormality detected only limited sequences Age-related changes involution Right maxillary sinusitis Reading Location: [facility] Physical Exam Const alert, oriented x3, no apparent distress and average body habitus General Appearance: cooperative, well kempt and well developed Orientation / Consciousness: awake, oriented to person, oriented to place and oriented to time HEENT normocephalic and moist oral mucous membranes Eyes PERRL, EOMs intact bilaterally and conjunctivae normal Neck supple, no JVD, thyroid normal and no carotid bruits General: trachea midline Resp normal respiratory effort, no retractions, no use of accessory muscles and clearto auscultation bilaterally Auscultation: Negative for rales, rhonchi or wheezes Cardio regular rate, regular rhythm, S1 normal heart sound, S2 normal heart sound, no murmurs, no rub and no gallops GI normal to inspection, nondistended, normoactive bowel sounds, soft to palpation,non-tender and non-distended Extremity no clubbing, cyanosis or edema Skin no rashes or lesions noted General Skin Exam: no breakdown Neuro oriented x3, CN's II-XII intact bilaterally, no focal motor deficits and no sensory deficits noted Sensorium / Orientation: awake and alert Speech: speech normal Psych affect normal Assessment & Plan Assessment/Plan (1) Generalized weakness: PLAN: Plan 1. Generalized weakness-secondary to deconditioning and advanced age, PT OT will continue to see the patient, he will need temporary placement in a half-way facility due to his debility at the present time. #2 lower extremity weakness-MRI was performed today and it was negative for acute CVA, patient refused to undergo an MRA of the head and neck #3 hyponatremia-etiology unclear, BMP will be ordered tomorrow #4 acute anemia-CBC will be repeated tomorrow, patient has no signs of gastrointestinal bleeding at this time or other reasons for blood loss. Total clinical time spent by myself addressing the patient's medical issues, reviewing all of the data, and collaborating with patient's care team: 35 minutes Charges/Coding Visit Charges Inpatient E&M: 18458 Subs Hosp L2 NIHSS NIHSS Nursing Documentation NIHSS Nursing Documentation: NIHSS: Ischemic Stroke/TIA Start: 11/15/24 15:09 Text: For PCU Patients: NIH and Neuro Check every 4 Status: Complete hours, PRN and with change in RN caregiver. Freq: [id number] Protocol: Activity Type Activity Date Activity User E-sign Co-sign Detail Recorded Client Recorded Date Recorded By Document 11/16/24 08:25 JMN 0 11/16/24 08:33 JMN 11/16/24 08:25 NIH Stroke Scale [NIHSS] A score of 0 is normal or asymptomatic . Total possible score is 42. Inpatient: RN or Physician to activate a stroke alert for onset of new stroke symptoms or with NIHSS increase >/= 3 points. Following change in neurological status, NIHSS will be performed per physician order or more frequently PRN. -1a. Level of Consciousness 0 - Alert; keenly responsive -1b. LOC Questions 0 - Answers BOTH questions correctly -1c. LOC Commands 0 - Performs BOTH tasks correctly -2. Best Gaze 0 - Normal -3. Visual 0 - No visual loss -4. Facial Palsy 0 - Normal symmetrical movements -5a. Left Arm 0 - No drift; arm holds 90 ( or 45) degrees for full 10 seconds -5b. Right Arm 0 - No drift; arm holds 90 ( or 45) degrees for full 10 seconds -6a. Left Leg 3 - No effort against gravity ; leg falls to bed immediately -6b. Right Leg 2 - Some effort against gravity; -7. Limb Ataxia UN - Amputation or joint fusion, explain -'UN' explanation B/L hip pain, attempted to assist with heel/menchaca and pt unable to do -8. Sensory 0 - Normal; no sensory loss -9. Best Language 0 - No aphasia; normal -10. Dysarthria 0 - Normal -11. Extinction and Inattention 0 - No abnormality -Total 5 Query Text:A score of 0 is normal or asymptomatic. Total possible score is 42 . ED: Notify Physician for NIHSS increase by > / = 3 points. Inpatient: RN or Physician to activate a stroke alert for NIHSS increase of > / = 3 points. Coma Scale [Assess] -Eye Opening Spontaneous -Motor Obeys Commands -Verbal Oriented [Total] -Coma Scale Total 15 11/17/24 0835 <Electronically signed by Luca Yeh DO> Cosigner Signature (if applicable): CC: ~ Signed [facility] Work Phone: [phone]) 502-563407-08-2025 Progress note [facility] Medical Records Department [address] [place] [address] Progress Note - Hospitalist 11/16/24 1847 MR#: [id number] Acct: [id number] Name: PHILLY JOEL Rep #:[id number] : 1940 84 From: Luca Yeh DO PCP: Dr. Guilherme Fallon MD Status:ADM IN Location: [place] [address] Reason for Visit Reason for Visit: Diagnoses Other symptoms and signs involving the musculoskeletal system (11/15/24) Subjective Subjective Patient was seen and examined today, he consented to an MRI of the brain but refused to have an MRAof the head and neck performed. MRI of the brain was unremarkable. Due to patient's weakness with PT and OT, he requested to go to [facility] for inpatient skilled services. Patient lives by himself and has minimal aides to help take care of him. Objective Data Objective Data Vital Signs: Vital Signs Temp Pulse Resp BP Pulse Ox O2 Del Method 98.1 F 63 18 119/70 97 Room Air 11/16/24 14:54 11/16/24 14:54 11/16/24 14:54 11/16/24 14:54 11/16/24 14:54 11/16/24 14:54 Oxygen Delivery Method Room Air Weight: 96.6 kg Body Mass Index (BMI) 27.3 Intake & Output: Intake and Output for Last 24 Hours 11/14/24 11/15/24 11/16/24 23:59 23:59 23:59 Intake Total 1646.67 / 1646.67 290 / 290 Output Total 400 / 400 100 / 100 Balance 1246.67 / 1246.67 190 / 190 Lab / Micro Data 11/16/24 05:49 11/16/24 05:49 Labs: Laboratory Results - last 24 hr 11/15/24 13:42: Urine Osmolality 670, Ur Random Sodium 68, Urine Creatinine 121.00, Urine Ciyfzlixg09.2, Urine Chloride < 20, Urine Urea Nitrogen 1156 11/15/24 20:00: Sodium 127 L, Potassium 4.0, Chloride 96 L, Carbon Dioxide 22.7,Anion Gap 9, BUN 22H, Creatinine 0.79, Estim Creat Clear Calc 78.49, Est GFR (MDRD) Non-Af 87, BUN/Creatinine Ratio 27.9 H, Glucose 149 H, Calcium 8.0 11/16/24 05:49: WBC 8.7, RBC 3.48 L, Hgb 10.3 L, Hct 29.8 L, MCV 85.6, MCH 29.6,MCHC 34.6 D, RDW Std Deviation 45.9 H, RDW Coeff of Bud 14.7 H, Plt Count 242, MPV 9.5, Immature Gran % (Auto) 1.000 H,Neut % (Auto) 80.3 H, Lymph % (Auto) 5.5 L, Jerome % (Auto) 12.3 H, Eos % (Auto) 0.6, Baso % (Auto) 0.3, Absolute Neuts(auto) 7.0, Absolute Lymphs (auto) 0.48 L, Nucleated RBC % 0, PT 15.9 H, INR 1.3, Sodium 127 L, Potassium 3.9, Chloride 95 L, Carbon Dioxide 23.7, Anion Gap 9, BUN 19, Creatinine 0.72, Estim Creat Clear Calc 78.49, Est GFR (MDRD) Non-Af 90, BUN/Creatinine Ratio 26.3 H, Glucose 122 H, Hemoglobin A1c 5.2, Calcium 8.0,Magnesium 2.0, Triglycerides 49, Cholesterol 91, LDL Cholesterol,Calc 54, VLDL Cholesterol 10, HDL Cholesterol 27 L, Cholesterol/HDL Ratio 3.33 Radiography Diagnostic Testing: Radiology Impression Echocardiogram 11/15/24 15:02 Interpretation Summary Normal LV size. Left ventricular systolic function is normal. Stage 1 diastolic dysfunction. The left ventricular ejection fraction is 60 %. Mean aortic valve gradient 53 mmHg. Moderate focal aortic valve calcification. Severe aortic stenosis. Ordering Physician: Shannan Patterson Performed By: Carmine Florian RCS Hip/Pelvis X-Ray 11/15/24 16:50 IMPRESSION: No acute fracture identified. Hardware as described above. Reading Location: [facility] Chest X-Ray 11/15/24 22:50 IMPRESSION: No radiographic evidence of an acute cardiopulmonary process. Reading Location: [facility] Brain MRI 11/16/24 06:00 IMPRESSION: No evidence of restricted diffusion. No acute brain abnormality detected only limited sequences Age-related changes involution Right maxillary sinusitis Reading Location: [facility] Physical Exam Const alert, oriented x3, no apparent distress and average body habitus General Appearance: cooperative, well kempt and well developed Orientation / Consciousness: awake, oriented to person, oriented to place and oriented to time HEENT normocephalic and moist oral mucous membranes Eyes PERRL, EOMs intact bilaterally and conjunctivae normal Neck supple, no JVD, thyroid normal and no carotid bruits General: trachea midline Resp normal respiratory effort, no retractions, no use of accessory muscles and clearto auscultation bilaterally Auscultation: Negative for rales, rhonchi or wheezes Cardio regular rate, regular rhythm, S1 normal heart sound, S2 normal heart sound, no murmurs, no rub and no gallops GI normal to inspection, nondistended, normoactive bowel sounds, soft to palpation,non-tender and non-distended Extremity no clubbing, cyanosis or edema Skin no rashes or lesions noted General Skin Exam: no breakdown Neuro oriented x3, CN's II-XII intact bilaterally, no focal motor deficits and no sensory deficits noted Sensorium / Orientation: awake and alert Speech: speech normal Psych affect normal Assessment & Plan Assessment/Plan (1) Generalized weakness: PLAN: Plan 1. Generalized weakness-secondary to deconditioning and advanced age, PT OT will continue to see the patient, he will need temporary placement in a half-way facility due to his debility at thepresent time. #2 lower extremity weakness-MRI was performed today and it was negative for acute CVA, patient refused to undergo an MRA of the head and neck #3 hyponatremia-etiology unclear, BMP will be ordered tomorrow #4 acute anemia-CBC will be repeated tomorrow, patient has no signs of gastrointestinal bleeding atthis time or other reasons for blood loss. Total clinical time spent by myself addressing the patient's medical issues, reviewing all of the data, and collaborating with patient's care team: 35 minutes Charges/Coding Visit Charges Inpatient E&M: 95673 Subs Hosp L2 NIHSS NIHSS Nursing Documentation NIHSS Nursing Documentation: NIHSS: Ischemic Stroke/TIA Start: 11/15/24 15:09 Text: For PCU Patients: NIH and Neuro Check every 4 Status: Complete hours, PRN and with change in RN caregiver. Freq: [id number] Protocol: Activity Type Activity Date Activity User E-sign Co-sign Detail Recorded Client Recorded Date Recorded By Document 11/16/24 08:25 JMN 0 11/16/24 08:33 Tonya 11/16/24 08:25 NIH Stroke Scale [NIHSS] A score of 0 is normal or asymptomatic . Total possible score is 42. Inpatient: RN or Physician to activate a stroke alert for onset of new stroke symptoms or with NIHSS increase >/= 3 points. Following change in neurological status, NIHSS will be performed per physician order or more frequently PRN. -1a. Level of Consciousness 0 - Alert; keenly responsive -1b. LOC Questions 0 - Answers BOTH questions correctly -1c. LOC Commands 0 - Performs BOTH tasks correctly -2. Best Gaze 0 - Normal -3. Visual 0 - No visual loss -4. Facial Palsy 0 - Normal symmetrical movements -5a. Left Arm 0 - No drift; arm holds 90 ( or 45) degrees for full 10 seconds -5b. Right Arm 0 - No drift; arm holds 90 ( or 45) degrees for full 10 seconds -6a. Left Leg 3 - No effort against gravity ; leg falls to bed immediately -6b. Right Leg 2 - Some effort against gravity; -7. Limb Ataxia UN - Amputation or joint fusion, explain -'UN' explanation B/L hip pain, attempted to assist with heel/menchaca and pt unable to do -8. Sensory 0 - Normal; no sensory loss -9. Best Language 0 - No aphasia; normal -10. Dysarthria 0 - Normal -11. Extinction and Inattention 0 - No abnormality -Total 5 Query Text:A score of 0 is normal or asymptomatic. Total possible score is 42 . ED: Notify Physician for NIHSS increase by > / = 3 points. Inpatient: RN or Physician to activate a stroke alert for NIHSS increase of > / = 3 points. Coma Scale [Assess] -Eye Opening Spontaneous -Motor Obeys Commands -Verbal Oriented [Total] -Coma Scale Total 15 11/17/24 0835 Cosigner Signature (if applicable): CC: ~ Signed [facility]07-06-2025 Radiology Diagnostic study note [facility] Imaging Services [address] [place], [place] [id number] Chest 1 View (Portable) MR#: [id number] Acct: [id number] Name: PHILLY JOEL Rep #: [id number] : 1940 M 84 From: Pet er Peer DO PCP: Dr. Guilherme Fallon MD Status: ADM IN Study:Chest 1 View (Portable) Date of Exam: 11/15/24 Exam# [id number] Ordering Dr: Nataliya Patterson MD PROCEDURE: CHEST 1 VIEW (PORTABLE) 11/15/2024 REASON FOR EXAM: ELEVATED PROBNP TECHNIQUE: Frontal view of the chest. COMPARISON: None. FINDINGS: Hardware: EKG lead wires. Heart: Normal size. Lungs: Scattered chronic appearing pleural-parenchymal changes. No pulmonary venous congestion. No pleural effusions. No definite evidence of heart failure. Bones: No aggressive process identified. Other: RAD/Chest 1 View (Portable) IMPRESSION: No radiographic evidence of an acute cardiopulmonary process. Reading Location: [facility] CC: Dr. Guilherme Fallon MD; Dr. Shannan Patterson MD ~ General Forecaster: Signed [facility]07-06-2025 Progress note Author Shannan Patterson [facility] Note Date/Time November 15, 2024 9:05p m [facility] Medical Records Department [address] [place] [address] Progress Note - Hospitalist 11/15/24 1532 MR#: [id number] Acct: [id number] Name: PHILLY JOEL Rep #:[id number] : 1940 84 From: Shannan Patterson MD PCP: Dr. Guilherme Fallon MD Status:ADM IN Location: [place] [address] Hospitalist Note Patient did spike a mild temperature on the floor, on physical exam he does appear to have a cellulitis of his toe on his right foot without any overt purulence, will start on Unasyn 11/15/241534 <Electronically signed by Shannan Patterson MD> Cosigner Signature (if applicable): CC: ~ Signed ADDENDUM by Dr. Shannan Patterson MD on 11/15/24 at 2105 Addendum Due to swelling lower extremities did check BNP which actually was elevated, ordered chest x-ray and will await echo which was ordered, patient will respiratory complaints of 96% on room air, will hold off on Lasix given patient came in with poor p.o. intake and there was concern for some intravascular depletion pending further clinical status and workup. Also patient did spike temperature, was started on Unasyn for cellulitis in right lower extremity. Additionally patient reported to nurse that his hips were hurting more after fall so did obtain a hip and pelvis x-ray, read pending 11/15/242104<Electronically signed by Shannan Patterson MD> Cosigner Signature (if applicable): cc: ~* Signed [facility] Work Phone: 1(336) 575-512607-06-2025 Radiology Diagnostic study note [facility] Imaging Services [address] [place], [place] [id number] Hips B/L min 2 views w/ Pelvis MR#: [id number] Acct: [id number] Name: PHILLY JOEL Rep #: [id number] : 1940 M 84 From: Pet er Peer PCP: Dr. Guilherme Fallon MD Status: ADM IN Study:Hips B/L min 2 views w/ Pelvis Date of Exam: 11/15/24 Exam# [id number] Ordering Dr: Nataliya Patterson MD PROCEDURE: HIPS B/L MIN 2 VIEWS W/ PELVIS 11/15/2024 REASON FOR EXAM: POST FALL W/ HIP PAIN. Initial encounter. TECHNIQUE: HIPS B/L MIN 2 VIEWS W/ PELVIS FINDINGS: Bones: Bilateral total hip arthroplasty. The hip arthroplasty hardware is well- positioned and intact. No obvious hardware complication. Proximal left hip/femur also demonstrates status post open reduction internal fixation of proximal left femur fracture with plates and screws and a cerclage wire. The fixation hardware is intact, well-positioned and without obvious complication. Soft tissues: Unremarkable soft tissues Other: No fractures of [place] surrounding bone RAD/Hips B/L min 2 views w/ Pelvis IMPRESSION: No acute fracture identified. Hardware as described above. Reading Location: [facility] CC: Dr. Guilherme Fallon MD; Dr. Shannan Patterson MD ~ General Forecaster: Signed [facility]07-06-2025 Discharge summary Author Chetan Mata [facility] Note Date/Time November 15, 2024 7:07p m [facility] Medical Records Department [address] [place] [id number] Emergency Department Summary 11/15/24 MR#: [id number] Acct: [id number] Name: PHILLY JOEL Rep #:[id number] : 1940 84 From: Chetan Mata MD PCP: Dr. Guilherme Fallon MD Status:ADM IN Location: [facility] TLR561- 1 HPI <JOLIE Ibarra - Last Filed: 11/15/24 14:51> History of Present Illness Chief Complaint: Weakness Narrative Narrative: 84-year-old male with past medical history of hypertension presents with generalized weakness. He lives alone in an apartment. Normally he has a home health aide but she has been gone for several days. He states on November 12 [address] to do errands and after getting out of his car he was standing with his cane and was too weak to walk and fell scraping his left elbow. No head injury. He called EMS for lift assist into his apartment. He has not beenable to get around since then. He had chicken soup yesterday morning and nothing since then. He states normally he walks with a cane and holds onto things. He denies fever, chills, chest pain, shortness of breath, cough, vomiting or diarrhea. He had ordered a life alert type device and states he put it togetherand used it to call EMS today to bring him in. [facility] <JOLIE Ibarra - Last Filed: 11/15/24 14:51> [facility] Medical History (Updated 11/15/24 @ 14:[address] Shannan Patterson MD) HTN (hypertension) Allergy/AdvReac Type Severity Reaction Status Date / Time Opioids - Morphine Analogues Allergy Intermediate Other Verified 11/15/24 12:14 Surgical History (Updated 11/15/24 @ 12:16 by Rosemarie James) History of tonsillectomy H/O bilateral hip replacements Social History Smoking Status: Former smoker ROS <JOLIE Ibarra - Last Filed: 11/15/24 14:51> ROS ED ROS Narrative Constitutional: Negative for fever, chills, malaise. CVS: Negative forchest pain, syncope. Respiratory: Negative for shortness of breath, cough. GI: Negative for abdominal pain, nausea, vomiting, diarrhea. Neuro: Negative for headache. EXAM <JOLIE Ibarra - Last Filed: 11/15/24 14:51> Physical Exam Narrative Exam Narrative: CONST: Patient sitting in no acute distress. EYES: Normal inspection. ENT: Normal inspection, slightly dry mucous membranes. NECK: Normal inspection. RESP: No respiratory distress, CTAB. CVS: Systolic ejection murmur, regular rhythm. ABD: Soft and nontender, no guarding or rebound, nondistended. SKIN: Color normal, no rash, warm, dry, intact. EXTREMITIES: Normal appearance, no pedal edema. NEURO: Alert and answering questions appropriately. PSYCH: Normal affect. Const Vital Signs: 11/15/24 12:06 11/15/24 13:09 11/15/24 13:14 Temperature 99.9 F H 98.4 F Temperature Source Temporal Oral Pulse Rate 69 Respiratory Rate 16 Respiratory Pattern Normal Blood Pressure 148/67 H Blood Pressure Mean 94 Pulse Ox 100 Oxygen Delivery Method Room Air <Dr. Chetan Mata MD - Last Filed: 11/15/24 19:07> Physical Exam Const Vital Signs: 11/15/24 12:06 11/15/24 13:09 11/15/24 13:14 Temperature 99.9 F H 98.4 F Temperature Source Temporal Oral Pulse Rate 69 Respiratory Rate 16 Respiratory Pattern Normal Blood Pressure 148/67 H Blood Pressure Mean 94 Pulse Ox 100 Oxygen Delivery Method Room Air MDM <JOLIE Ibarra - Last Filed: 11/15/24 14:51> MDM MDM Narrative Medical decision making narrative: 84 old male presents with generalized weakness. His home health aide has not been around for few days and he has been unable to get out of bed and has had decreased p.o. intake. He appears well and nontoxic. Vital stable. CONSTANTIN temporal thermometer read 99.9 but oral temp is normal at 98.4 ?F. He has dry mucous membranes with an otherwise unremarkable exam. WBC is 10.5. Hemoglobin slightly low at 12.5 with no prior for comparison. Sodium is 126. Potassium 4.4. BUN 20, creatinine 0.79. Patient's home health aide arrived and states his urine looks dark. Urinalysis is negative for infection but does have proteinuria. Patient is too weak to go home and has failure to thrive. I discussed the case with the hospitalist for admission. History & Record Review Discussion w/independent historian: Patient and Friend Lab Data Attestation: I reviewed the patient's lab results. Labs: Laboratory Results - last 24 hr 11/15/24 11/15/24 12:33 13:42 WBC 10.5 RBC 4.30 L Hgb 12.5 L Hct 38.3 L MCV 89.1 MCH 29.1 MCHC 32.6 RDW Std Deviation 48.0 H RDW Coeff of Bud 14.8 H Plt Count 237 MPV 9.5 Immature Gran % (Auto) 1.300 H Neut % (Auto) 78.3 H Lymph % (Auto) 6.4 L Jerome % (Auto) 13.6 H Eos % (Auto) 0.2 Baso % (Auto) 0.2 Absolute Neuts (auto) 8.2 H Absolute Lymphs (auto) 0.67 L Nucleated RBC % 0 Sodium 126 L Potassium 4.4 Chloride 92 L Carbon Dioxide 21.0 Anion Gap 13 BUN 20 H Creatinine 0.79 Est GFR (MDRD) Non-Af 87 BUN/Creatinine Ratio 25.5 H Glucose 86 Calcium 8.9 TSH 0.479 Cortisol PM Sample 20.80 H Urine Color Yellow Urine Clarity Clear Urine pH 7.0 Ur Specific [place] 1.010 Urine Protein 30 H Urine Glucose (UA) Normal Urine Ketones Negative Urine Occult Blood 10 H Urine Nitrite Negative Urine Bilirubin Negative Urine Urobilinogen 4 H Ur Leukocyte Esterase 25 H Urine RBC 0 SEEN Urine WBC 0 SEEN Ur Squamous Epith Cells 0 SEEN Urine Bacteria 0 SEEN Urine Mucus 0 SEEN Urine Osmolality 670 Ur Random Sodium 67 Urine Chloride < 20 <Dr. Chetan Mata MD - Last Filed: 11/15/24 19:07> [facility] MDM Narrative Medical decision making narrative: 84 old male presents with generalized weakness. His home health aide has not been around for few days and he has been unable to get out of bed and has had decreased p.o. intake. He appears well and nontoxic. Vital stable. CONSTANTIN temporal thermometer read 99.9 but oral temp is normal at 98.4 ?F. He has dry mucous membranes with an otherwise unremarkable exam. WBC is 10.5. Hemoglobin slightly low at 12.5 with no prior for comparison. Sodium is 126. Potassium 4.4. BUN 20, creatinine 0.79. Patient's home health aide arrived and states his urine looks dark. Urinalysis is negative for infection but does have proteinuria. Patient is too weak to go home and has failure to thrive. I discussed the case with the hospitalist for admission. I have personally performed a face to face assessment of the patient and have reviewed the JESSICA Note. I performed a substantive portion of the visit including all aspects of the following. My love findings include: History is limited because patient refused to talk to me. He informing that he had talked to 3 other people and he was not going to talk to anyone else. He informed that I would need to talk to those people to obtain his history. Therewas a woman in there who is his luster applicator. She apparently left [facility] for the holiday and he did not have any 1 help him. He apparently fell this past November 12. He denied head trauma. He denies headache. He complains of generalized weakness and worse low back pain. He told me he has not had any to eat in 24 hours. He then stated he had chicken soup. Patient is not a reliableinformant. Patient very short and agitated because I have to ask him questions they were already asked. He denies double vision, blurred vision or loss of vision. He denies trouble with his speech or swallowing. He denies chest pain, pressure, tightness or heaviness. He denies shortness of breath. He denies abdominal pain. He deniesnausea, vomit or diarrhea. He denies constipation. He denies loss of bowel control. He denies inability to urinate. He denies pain radiating down his right or left leg. Patient states he is normally pale in appearance. He is not on any diuretic. Exam is remarkable for an uncooperative patient. HEENT reveals no evidence of trauma. There is no clinical signs of basilar skull fracture. He does wear hearing aids. Uvula is midline. No deviation with protrusion. There is no posterior midline neck or thoracic pain. There is no pain the patient over the pubic symphysis, right or left iliac wing or right or left ischial tuberosity. He has no pain ovation over the right or left greater trochanteric region. There is no shortening of his legs. Patient demanded I bend his right and left knee at 45 degrees otherwise he would not talk to me any longer. Patient has thickened toenails and stigmata of peripheral arterial disease. He had negativeBabinski sign right and left. He has no clonus. He is awake and oriented. He moves all his extremities. Medical Decision Making need to evaluate for infectious cause, metabolic cause of his generalized weakness. The hospitalist informing that he is not moving his left leg. I informed her I did not examine specifically his quadricep muscles. He was reexamined. He has a negative straight leg test right and left. Patella reflexes 1+ bilaterally. Ankle reflexes absent bilaterally. Again he has no clonus or Babinski. EHLs intact bilaterally. Other additions or changes: In light of this new information need to evaluate for stroke. CT of the head was obtained. He will be admitted to PCU. This wasprobably the cause of his fall. Lab Data Labs: Laboratory Results - last 24 hr 11/15/24 11/15/24 12:33 13:42 WBC 10.5 RBC 4.30 L Hgb 12.5 L Hct 38.3 L MCV 89.1 MCH 29.1 MCHC 32.6 RDW Std Deviation 48.0 H RDW Coeff of Bud 14.8 H Plt Count 237 MPV 9.5 Immature Gran % (Auto) 1.300 H Neut % (Auto) 78.3 H Lymph % (Auto) 6.4 L Jerome % (Auto) 13.6 H Eos % (Auto) 0.2 Baso % (Auto) 0.2 Absolute Neuts (auto) 8.2 H Absolute Lymphs (auto) 0.67 L Nucleated RBC % 0 Sodium 126 L Potassium 4.4 Chloride 92 L Carbon Dioxide 21.0 Anion Gap 13 BUN 20 H Creatinine 0.79 Est GFR (MDRD) Non-Af 87 BUN/Creatinine Ratio 25.5 H Glucose 86 Calcium 8.9 TSH 0.479 Cortisol PM Sample 20.80 H Urine Color Yellow Urine Clarity Clear Urine pH 7.0 Ur Specific Wilton 1.010 Urine Protein 30 H Urine Glucose (UA) Normal Urine Ketones Negative Urine Occult Blood 10 H Urine Nitrite Negative Urine Bilirubin Negative Urine Urobilinogen 4 H Ur Leukocyte Esterase 25 H Urine RBC 0 SEEN Urine WBC 0 SEEN Ur Squamous Epith Cells 0 SEEN Urine Bacteria 0 SEEN Urine Mucus 0 SEEN Urine Osmolality 670 Ur Random Sodium 67 Urine Chloride < 20 Discharge Plan Dx/Rx/DC Orders Clinical Impression: Generalized weakness, Acute hyponatremia, Weakness of left lower extremity, Anemia, Acute prerenal azotemia, Elevated blood-pressure reading without diagnosis of hypertension, Hematuria with proteinuria Disposition Disposition: Acute Care Hospital [facility] Discharge Date/Time: 11/15/24 15:05 What to do if you have Problems For any increased pain, shortness of breath, bleeding, nausea or vomiting, chestpain, or any unexpected problems, contact your Primary Care Provider. Call [facility] ([phone]) or report to the closest Emergency Room. Call 911 if necessary. 11/15/24 1907 <Electronically signed by Chetan Mata MD> Cosigner Signature (if applicable): 11/15/24 1451 <Electronically signed by Dina DAVE> CC: Dr. Guilherme Fallon MD ~ Signed [facility] Work Phone: 1(690) 687-225007-06-2025 Progress note [facility] Medical Records Department [address] [place] [address] Progress Note - Hospitalist 11/15/24 1532 MR#: [id number] Acct: [id number] Name: PHILLY JOEL Rep #:[id number] : 1940 84 From: Shannan Patterson MD PCP: Dr. Guilherme Fallon MD Status:ADM IN Location: [place] [address] Hospitalist Note Patient did spike a mild temperature on the floor, on physical exam he does appear to have a cellulitis of his toe on his right foot without any overt purulence, will start on Unasyn 11/15/24 153 Cosigner Signature (if applicable): CC: ~ Signed ADDENDUM by Dr. Shannan Patterson MD on 11/15/24 at 2105 Addendum Due to swelling lower extremities did check BNP which actually was elevated, ordered chest x-ray and will await echo which was ordered, patient will respiratory complaints of 96% on room air, will hold off on Lasix given patient came in with poor p.o. intake and there was concern for some intravascular depletion pending further clinical status and workup. Also patient did spike temperature, was started on Unasyn for cellulitis in right lower extremity. Additionally patient reported to nurse that his hips were hurting more after fall so did obtain a hip and pelvis x-ray, read pending 11/15/242104 Cosigner Signature (if applicable): cc: ~* Signed [facility]07-06-2025 Discharge summary [facility] Medical Records Department [address] [place] [address] Emergency Department Summary 11/15/24 MR#: [id number] Acct: [id number] Name: PHILLY JOEL Rep #:[id number] : 1940 84 From: Chetan Mata MD PCP: Dr. Guilherme Fallon MD Status:ADM IN Location: [place] [address] HPI History of Present Illness Chief Complaint: Weakness Narrative Narrative: 84-year-old male with past medical history of hypertension presents with generalized weakness. He lives alone in an apartment. Normally he has a home health aide but she has been gone for several days. He states on November [address] to do errands and after getting out of his car he was standing with his cane and was too weak to walk and fell scraping his left elbow. No head injury. He called EMS for lift assist into his apartment. He has not beenable to get around since then. He had chicken soup yesterday morning and nothing since then. He states normally he walks with a cane and holds onto things. He denies fever, chills, chest pain, shortness of breath, cough, vomiting or diarrhea. He had ordered a life alert type device and states he put it togetherand used it to call EMS todayto bring him in. [facility] Medical History (Updated 11/15/24 @ 14:[address] Shannan Patterson MD) HTN (hypertension) Allergy/AdvReac Type Severity Reaction Status Date / Time Opioids - Morphine Analogues Allergy Intermediate Other Verified 11/15/24 12:14 Surgical History (Updated 11/15/24 @ 12:16 by Rosemarie James) History of tonsillectomy H/O bilateral hip replacements Social History Smoking Status: Former smoker ROS ROS ED ROS Narrative Constitutional: Negative for fever, chills, malaise. CVS: Negative forchest pain, syncope. Respiratory: Negative for shortness of breath, cough. GI: Negative for abdominal pain, nausea, vomiting, diarrhea. Neuro: Negative for headache. EXAM Physical Exam Narrative Exam Narrative: CONST: Patient sitting in no acute distress. EYES: Normal inspection. ENT: Normal inspection, slightly dry mucous membranes. NECK: Normal inspection. RESP: No respiratory distress, CTAB. CVS: Systolic ejection murmur, regular rhythm. ABD: Soft and nontender, no guarding or rebound, nondistended. SKIN: Color normal, no rash, warm, dry, intact. EXTREMITIES: Normal appearance, no pedal edema. NEURO: Alert and answering questions appropriately. PSYCH: Normal affect. Const Vital Signs: 11/15/24 12:06 11/15/24 13:09 11/15/24 13:14 Temperature 99.9 F H 98.4 F Temperature Source Temporal Oral Pulse Rate 69 Respiratory Rate 16 Respiratory Pattern Normal Blood Pressure 148/67 H Blood Pressure Mean 94 Pulse Ox 100 Oxygen Delivery Method Room Air Physical Exam Const Vital Signs: 11/15/24 12:06 11/15/24 13:09 11/15/24 13:14 Temperature 99.9 F H 98.4 F Temperature Source Temporal Oral Pulse Rate 69 Respiratory Rate 16 Respiratory Pattern Normal Blood Pressure 148/67 H Blood Pressure Mean 94 Pulse Ox 100 Oxygen Delivery Method Room Air MDM MDM MDM Narrative Medical decision making narrative: 84 old male presents with generalized weakness. His home health aide has not been around for few days and he has been unable to get out of bed and has had decreased p.o. intake. He appears well and nontoxic. Vital stable. CONSTANTIN temporal thermometer read 99.9 but oral temp is normal at 98.4 ?F. He hasdry mucous membranes with an otherwise unremarkable exam. WBC is 10.5. Hemoglobin slightly low at 12.5 with no prior for comparison. Sodium is 126. Potassium 4.4. BUN 20, creatinine 0.79. Patient's home health aide arrived and states his urine looks dark. Urinalysis is negative for infection but does have proteinuria. Patient is too weak to go home and has failure to thrive. I discussed the case with the hospitalist for admission. History & Record Review Discussion w/independent historian: Patient and Friend Lab Data Attestation: I reviewed the patient's lab results. Labs: Laboratory Results - last 24 hr 11/15/24 11/15/24 12:33 13:42 WBC 10.5 RBC 4.30 L Hgb 12.5 L Hct 38.3 L MCV 89.1 MCH 29.1 MCHC 32.6 RDW Std Deviation 48.0 H RDW Coeff of Bud 14.8 H Plt Count 237 MPV 9.5 Immature Gran % (Auto) 1.300 H Neut % (Auto) 78.3 H Lymph % (Auto) 6.4 L Jerome % (Auto) 13.6 H Eos % (Auto) 0.2 Baso % (Auto) 0.2 Absolute Neuts (auto) 8.2 H Absolute Lymphs (auto) 0.67 L Nucleated RBC % 0 Sodium 126 L Potassium 4.4 Chloride 92 L Carbon Dioxide 21.0 Anion Gap 13 BUN 20 H Creatinine 0.79 Est GFR (MDRD) Non-Af 87 BUN/Creatinine Ratio 25.5 H Glucose 86 Calcium 8.9 TSH 0.479 Cortisol PM Sample 20.80 H Urine Color Yellow Urine Clarity Clear Urine pH 7.0 Ur Specific Wilton 1.010 Urine Protein 30 H Urine Glucose (UA) Normal Urine Ketones Negative Urine Occult Blood 10 H Urine Nitrite Negative Urine Bilirubin Negative Urine Urobilinogen 4 H Ur Leukocyte Esterase 25 H Urine RBC 0 SEEN Urine WBC 0 SEEN Ur Squamous Epith Cells 0 SEEN Urine Bacteria 0 SEEN Urine Mucus 0 SEEN Urine Osmolality 670 Ur Random Sodium 67 Urine Chloride < 20 MDM MDM Narrative Medical decision making narrative: 84 old male presents with generalized weakness. His home health aide has not been around for few days and he has been unable to get out of bed and has had decreased p.o. intake. He appears well and nontoxic. Vital stable. CONSTANTIN temporal thermometer read 99.9 but oral temp is normal at 98.4 ?F. He hasdry mucous membranes with an otherwise unremarkable exam. WBC is 10.5. Hemoglobin slightly low at 12.5 with no prior for comparison. Sodium is 126. Potassium 4.4. BUN 20, creatinine 0.79. Patient's home health aide arrived and states his urine looks dark. Urinalysis is negative for infection but does have proteinuria. Patient is too weak to go home and has failure to thrive. I discussed the case with the hospitalist for admission. I have personally performed a face to face assessment of the patient and have reviewed the JESSICA Note. I performed a substantive portion of the visit including all aspects of the following. My love findings include: History is limited because patient refused to talk to me. He informing that he had talked to 3 other people and he was not going to talk to anyone else. He informed that I would need to talk to thosepeople to obtain his history. Therewas a woman in there who is his luster applicator. She apparently left town for the holiday and he did not have any 1 help him. He apparently fell this past , November 12. He denied head trauma. He denies headache. He complains of generalized weakness and worse low back pain. He told me he has not had any to eat in 24 hours. He then stated he had chicken soup. Patient is not a reliableinformant. Patient very short and agitated because I have to ask him questions they were already asked. He denies double vision, blurred vision or loss of vision. He denies trouble with his speech or swallowing. He denies chest pain, pressure, tightness or heaviness. He denies shortness of breath. He denies abdominal pain. He deniesnausea, vomit or diarrhea. He denies constipation. He denies loss of bowel control. He denies inability to urinate. He denies pain radiating down his right or left leg. Patient states he is normally pale in appearance. He is not on any diuretic. Exam is remarkable for an uncooperative patient. HEENT reveals no evidence of trauma. There is no clinical signs of basilar skull fracture. He does wear hearing aids. Uvula is midline. No deviation with protrusion. There is no posterior midline neck or thoracic pain. There is no pain the patient over the pubic symphysis, right or left iliac wing or right or left ischial tuberosity. He has no painovation over the right or left greater trochanteric region. There is no shortening of his legs. Patient demanded I bend his right and left knee at 45 degrees otherwise he would not talk to me any longer. Patient has thickened toenails and stigmata of peripheral arterial disease. He had negativeBabinski sign right and left. He has no clonus. He is awake and oriented. He moves all his extremities. Medical Decision Making need to evaluate for infectious cause, metabolic cause of his generalized weakness. The hospitalist informing that he is not moving his left leg. I informed her I did not examine specifically his quadricep muscles. He was reexamined. He has a negative straight leg test right and left. Patella reflexes 1+ bilaterally. Ankle reflexes absent bilaterally. Again he has no clonus or Babinski. EHLs intact bilaterally. Other additions or changes: In light of this new information need to evaluate for stroke. CT of thehead was obtained. He will be admitted to PCU. This wasprobably the cause of his fall. Lab Data Labs: Laboratory Results - last 24 hr 11/15/24 11/15/24 12:33 13:42 WBC 10.5 RBC 4.30 L Hgb 12.5 L Hct 38.3 L MCV 89.1 MCH 29.1 MCHC 32.6 RDW Std Deviation 48.0 H RDW Coeff of Bud 14.8 H Plt Count 237 MPV 9.5 Immature Gran % (Auto) 1.300 H Neut % (Auto) 78.3 H Lymph % (Auto) 6.4 L Jerome % (Auto) 13.6 H Eos % (Auto) 0.2 Baso % (Auto) 0.2 Absolute Neuts (auto) 8.2 H Absolute Lymphs (auto) 0.67 L Nucleated RBC % 0 Sodium 126 L Potassium 4.4 Chloride 92 L Carbon Dioxide 21.0 Anion Gap 13 BUN 20 H Creatinine 0.79 Est GFR (MDRD) Non-Af 87 BUN/Creatinine Ratio 25.5 H Glucose 86 Calcium 8.9 TSH 0.479 Cortisol PM Sample 20.80 H Urine Color Yellow Urine Clarity Clear Urine pH 7.0 Ur Specific Wilton 1.010 Urine Protein 30 H Urine Glucose (UA) Normal Urine Ketones Negative Urine Occult Blood 10 H Urine Nitrite Negative Urine Bilirubin Negative Urine Urobilinogen 4 H Ur Leukocyte Esterase 25 H Urine RBC 0 SEEN Urine WBC 0 SEEN Ur Squamous Epith Cells 0 SEEN Urine Bacteria 0 SEEN Urine Mucus 0 SEEN Urine Osmolality 670 Ur Random Sodium 67 Urine Chloride < 20 Discharge Plan Dx/Rx/DC Orders Clinical Impression: Generalized weakness, Acute hyponatremia, Weakness of left lower extremity, Anemia, Acute prerenal azotemia, Elevated blood-pressure reading without diagnosis of hypertension, Hematuria with proteinuria Disposition Disposition: Acute Care Hospital [facility] Discharge Date/Time: 11/15/24 15:05 What to do if you have Problems For any increased pain, shortness of breath, bleeding, nausea or vomiting, chestpain, or any unexpected problems, contact your Primary Care Provider. Call [facility] ([phone]) or report tothe closest Emergency Room. Call 911 if necessary. 11/15/24 1907 Cosigner Signature (if applicable): 11/15/24 1451 CC: Dr. Guilherme Fallon MD ~ Signed [facility]07-06-2025 History and physical note Author Shannan Patterson [facility] Note Date/Time November 15, 2024 3:03p [facility] Medical Records Department [address] [place] [address] H&P Exam - Hospitalist 11/15/24 1441 MR#: [id number] Acct: [id number] Name: PHILLY JOEL Rep #:[id number] : 1940 84 From: Shannan Patterson MD PCP: Dr. Guilherme Fallon MD Status:ADM IN Location: [facility] [id number] HPI - General General Date of Admission: 11/15/24 Date of Service: 11/15/24 Chief Complaint: Right leg weakness HPI Narrative PHILLY JOEL, is a 84M with a history of hypertension and left femur break lastMarch requiring surgery at presented [facility] ED 11/15/2024 with weakness. In the ED temp initially appear to be 99.9 but oral tempwas corrected to 98.4, pulse rate 69 with blood pressure 148/67, respiratory rate 16 pulse ox 100% on room air. Patient with normal white blood cell count with a hemoglobin of 12.5 with no previous baseline. BMP with a BUN of 20 and creatinine 0.97 and he was found to have a sodium of 126 with no previous baseline, UA negative for infection. Patient given IV fluids and due to his significant difficulty getting around hospitalist contacted for admission. Patient evaluated bedside. He reports that [facility] [place] and he been trying to work out when he suddenly had increased right lower extremity weakness after which he had a fall. At that time he called EMS and they came and got him in his house and recommended going to the ED but he refused. He does report he has chronic left lower extremity weakness but that his right lower extremity used to be his strong extremity until , this is not improved since that time. Does report some back pain though he does havechronic L4-5 pain per patient maybe has been a little bit worse however the weakness he did say began before the fall and not the other way around. He saidsince then he has not really been able to get around so he has not been eating or drinking well and now feels a little bit weak overall. Does get pain into his hips and reports he gets some chronic numbness and tingling in his legs but that that is not new when he thinks he might just need more B12. He reports he has been having some headaches, denies changes in vision, has a chronic phlegmy cough that has not necessarily changed, no chest pain or shortness of breath, denies any focal weakness in any other extremities. Of note patient reports he takes multiple supplements and has been into naturopathic medicine for 40 years and instead of taking an aspirin he takes some kind of tree bark capsule. Afterdiscussing with the patient and clarifying he was reporting focal weakness (he had previously alluded to generalized weakness which was what he was initially going to be admitted for) discussed with ED physician there is concern that he could have had a stroke, CT head ordered in the ED and patient will be admitted to PCU as a stroke rule out [facility] Medical History (Updated 11/15/24 @ 14:[address] Shannan Patterson MD) HTN (hypertension) Allergy/AdvReac Type Severity Reaction Status Date / Time Opioids - Morphine Analogues Allergy Intermediate Other Verified 11/15/24 12:14 Surgical History (Updated 11/15/24 @ 12:16 by Rosemarie James) H/O bilateral hip replacements History of tonsillectomy Social History Smoking Status: Former smoker ROS ROS Narrative General: Denies fever/chills HENT: Has been having some headaches, denies stuffy nose, denies sore throat EYES: Denies changes in vision Resp: Chronic phlegmy cough, denies shortness of breath Cardiac: Denies chest pain GI: Denies abdominal pain, denies changes in bowel, denies nausea/vomiting : Denies changes in urination Extremity: Reports some weakness in both legs but notes left leg is weak at baseline and right leg is weak compared to his previous baseline MSK: Weakness as above, does have some low back pain Neuro: Intermittent chronic numbness and tingling in legs, pain does not shoot down to legs Heme: Has some bruises Skin: Denies rashes Psychiatric: No complaints voiced Vital Signs Vital Signs Vital Signs: 11/15/24 12:06 11/15/24 13:09 11/15/24 13:14 Temperature 99.9 F H 98.4 F Temperature Source Temporal Oral Pulse Rate 69 Respiratory Rate 16 Respiratory Pattern Normal Blood Pressure 148/67 H Blood Pressure Mean 94 Pulse Ox 100 Oxygen Delivery Method Room Air Physical Exam Narrative General: Alert, oriented, no apparent distress HEENT: Atraumatic, normocephalic, seems to be hard of hearing Eyes: Anicteric, normal conjunctiva, extraocular movements grossly intact Neck: Supple Respiratory: Clear to auscultation bilaterally, normal respiratory effort Cardiovascular: Regular rate and rhythm GI: Soft, nontender, nondistended Extremities: Seems to have some trace lower extremity edema Musculoskeletal: Moving both upper extremities, has difficulty moving either lower extremity off the bed but is slightly better able to with the right than left hand when legs are lifted up he is not able to hold the left up at all but is able to hold the right up Neuro: Patient without sustained clonus in ankles, has bilateral patellar reflexes right greater than left Skin: Overall cooperative Psych: Cooperative Results Lab / Micro Data 11/15/24 12:33 11/15/24 12:33 Labs: Laboratory Results - last 24 hr 11/15/24 12:33: WBC 10.5, RBC 4.30 L, Hgb 12.5 L, Hct 38.3 L, MCV 89.1, MCH 29.1, MCHC 32.6, RDW Std Deviation 48.0 H, RDW Coeff of Bud 14.8 H, Plt Count 237, MPV 9.5, Immature Gran % (Auto) 1.300 H, Neut % (Auto) 78.3 H, Lymph % (Auto) 6.4 L, Jerome % (Auto) 13.6 H, Eos % (Auto) 0.2, Baso % (Auto) 0.2, Absolute Neuts (auto) 8.2 H, Absolute Lymphs (auto) 0.67 L, Nucleated RBC % 0, Sodium 126 L, Potassium 4.4, Chloride 92 L, Carbon Dioxide 21.0, Anion Gap 13, BUN 20 H, Creatinine 0.79, Est GFR (MDRD) Non-Af 87, BUN/Creatinine Ratio 25.5 H,Glucose 86, Calcium 8.9 11/15/24 13:42: Urine Color Yellow, Urine Clarity Clear, Urine pH 7.0, Ur Specific Wilton 1.010, Urine Protein 30 H, Urine Glucose (UA) Normal, Urine Ketones Negative, Urine Occult Blood 10 H, Urine Nitrite Negative, Urine Bilirubin Negative, Urine Urobilinogen 4 H, Ur Leukocyte Esterase 25 H, Urine RBC 0 SEEN, Urine WBC 0 SEEN, Ur Squamous Epith Cells 0 SEEN, Urine Bacteria 0 SEEN, Urine Mucus 0 SEEN Assessment & Plan Assessment/Plan (1) Weakness of lower extremity: PLAN: Plan # Lower extremity weakness -Patient reports he has chronic weakness in his left lower extremity and that his right lower extremity previously was strong but now relatively is weak compared to previous and this started suddenly on after which she had afall. On exam patient has much more significant weakness in the left lower extremity compared to right lower extremity -Admit to tele -CT head ordered in ED -MRI ordered along with MRA head and neck once patient refuses any scan requiring contrast -NIH q4hr -asa, statin if patient agreeable to taking -Echo -PT/OT/Speech eval -Teleneuro consult ordered #hyponatremia of unclear chronicity -Sodium 126 with no previous baseline available in our system -Will check TSH, cortisol -Will check serum osmolality and urine studies -Will be given gentle IVF as patient has not been eating or drinking and seems to be somewhat volume depleted -Trend BMP - Also of note patient reports taking multiple natural supplements, unclear if this could be a cause or contributor # Documented history of hypertension -Does not appear to presently be on medications -Will trend BP, may need to add antihypertensive pending trends though unclear if patient would be agreeable # Chronic lower back pain - Patient specifically reports L4-L5 pain since that he has had some increasedpain recently but denies that this was associated with any falls - Back was not tender on palpation at all and he reported actually felt good when palpating the area - Does not have symptoms radiating down legs and has no alarm symptoms - Tylenol as needed and lidocaine patch - PT/OT as above #DVT ppx: Lovenox subcu Shannan Patterson MD Charges/Coding Visit Charges Inpatient E&M: 87402 Init Hosp L2 11/15/24 1503 <Electronically signed by Shannan Patterson MD> Cosigner Signature (if applicable): CC: Dr. Guilherme Fallon MD; Dr. Shannan Patterson MD~ Signed [facility] Work Phone: 1(328) 753-853707-06-2025 Evaluation note* Diagnosis Onset Date Resolution Status Admit Date Acute hyponatremia acute November 152024 2:42pm Generalized weakness acute November 15, 2024 2:42pm Weakness of lower extremity acute November 15, 2024 2:42pm [facility] Work Phone: 1(309) 364-632407-06-2025 Evaluation note* Diagnosis Onset Date Resolution Status Admit Date Acute hyponatremia inactive November 152024 2:42pm Generalized weakness inactive November 15, 2024 2:42pm Weakness of lower extremity inactive November 15, 2024 2:42pm [facility] Work Phone: 1([phone]) 766-949807-06-2025 Radiology Diagnostic study note [facility] Imaging Services [address] [place] [address] Brain/Head without Contrast MR#: [id number] Acct: [id number] Name: PHILLY JOEL Rep #: [id number] : 1940 M 84 From: Diandra Kirkpatrick MD PCP: Dr. Guilherme Fallon MD Status: ADM IN Study:Brain/Head without Contrast Date of Exa m: 11/15/24 Exam# [id number] Ordering Dr: Dina Andersen EXAM: BRAIN/HEAD WITHOUT CONTRAST CLINICAL HISTORY: 84 y/o M with WEAKNESS. COMPARISON: None. TECHNIQUE: Routine CT imaging of the head without IV contrast. Additional multiplanar reformats were obtained. Dose reduction techniques were used including intermediate exposure control (AEC),iterative reconstruction technique, and/or mA and/or KV dose adjustments based on patient's size. FINDINGS: Mild generalized cerebral volume loss concordant prominence of the ventricles and subarachnoid spaces. There is no evidence of acute intracranial hemorrhage or herniation. There is no midline shift or extra- axial collection. Moderate patchy supratentorial white matter hypodensities. The menendez and white matter interfacesare otherwise maintained. Prior ocular lens replacements. Complete opacification of the right maxillary sinus. Left mastoid effusion. The visualized paranasal sinuses and mastoids are unremarkable. No acute calvarial fracture or scalp hematoma. CT/Brain/Head without Contrast IMPRESSION: No acute intracranial finding. Reading Location: [facility] CC: Dr. Guilherme Fallon MD; JOLIE Ibarra ~ General Forecaster: Signed [facility]07-06-2025 History and physical note [facility] Medical Records Department [address] [place] [address] H&P Exam - Hospitalist 11/15/24 1441 MR#: [id number] Acct: [id number] Name: PHILLY JOEL Rep #:[id number] : 1940 84 From: Shannan Patterson MD PCP: Dr. Guilherme Fallon MD Status:ADM IN Location: [facility] URI169- 1 HPI - General General Date of Admission: 11/15/24 Date of Service: 11/15/24 Chief Complaint: Right leg weakness HPI Narrative PHILLY JOEL, is a 84M with a history of hypertension and left femur break lastMarch requiring surgery at presented [facility] ED 11/15/2024 with weakness. In the ED temp initially appear to be 99.9 but oral tempwas corrected to 98.4, pulse rate 69 with blood pressure 148/67, respiratory rate 16 pulse ox 100% on room air. Patient with normal white blood cell count with a hemoglobin of 12.5 with no previous baseline. BMP with a BUN of 20 and creatinine 0.97 and he was found to have a sodium of 126 with no previous baseline, UA negative for infection. Patient given IV fluids and due to his significant difficulty getting around hospitalist contacted for admission. Patient evaluated bedside. [facility] when he suddenly had increased right lower extremity weakness after which he had a fall. At that time he called EMS and they came and got him in his house and recommended going to the ED but he refused. He does report he has chronic left lower extremity weakness but that his right lower extremity used to be his strong extremity until , this is not improved since that time. Does report some back pain though he does havechronic L4-5 pain per patient maybe has been a little bit worsehowever the weakness he did say began before the fall and not the other way around. He saidsince then he has not really been able to get around so he has not been eating or drinking well and now feels a little bit weak overall. Does get pain into his hips and reports he gets some chronic numbness and tingling in his legs but that that is not new when he thinks he might just need more B12. He reports he has been having some headaches, denies changes in vision, has a chronic phlegmy cough that has not necessarily changed, no chest pain or shortness of breath, denies any focal weakness in any other extremities. Of note patient reports he takes multiple supplements and has been into naturopathic medicine for 40 years and instead of taking an aspirin he takes some kind of tree bark capsule. Afterdiscussing with the patient and clarifying he was reporting focal weakness (he had previously alluded to generalized weakness which was what he was initially going to be admitted for) discussed with ED physician there is concern that he could have had a stroke, CT head ordered in the ED and patient will be admitted to PCU as a stroke rule out [facility] Medical History (Updated 11/15/24 @ 14:[address] Shannan Patterson MD) HTN (hypertension) Allergy/AdvReac Type Severity Reaction Status Date / Time Opioids - Morphine Analogues Allergy Intermediate Other Verified 11/15/24 12:14 Surgical History (Updated 11/15/24 @ 12:16 by Rosemarie James) H/O bilateral hip replacements History of tonsillectomy Social History Smoking Status: Former smoker ROS ROS Narrative General: Denies fever/chills HENT: Has been having some headaches, denies stuffy nose, denies sore throat EYES: Denies changes in vision Resp: Chronic phlegmy cough, denies shortness of breath Cardiac: Denies chest pain GI: Denies abdominal pain, denies changes in bowel, denies nausea/vomiting : Denies changes in urination Extremity: Reports some weakness in both legs but notes left leg is weak at baseline and right leg is weak compared to his previous baseline MSK: Weakness as above, does have some low back pain Neuro: Intermittent chronic numbness and tingling in legs, pain does not shoot down to legs Heme: Has some bruises Skin: Denies rashes Psychiatric: No complaints voiced Vital Signs Vital Signs Vital Signs: 11/15/24 12:06 11/15/24 13:09 11/15/24 13:14 Temperature 99.9 F H 98.4 F Temperature Source Temporal Oral Pulse Rate 69 Respiratory Rate 16 Respiratory Pattern Normal Blood Pressure 148/67 H Blood Pressure Mean 94 Pulse Ox 100 Oxygen Delivery Method Room Air Physical Exam Narrative General: Alert, oriented, no apparent distress HEENT: Atraumatic, normocephalic, seems to be hard of hearing Eyes: Anicteric, normal conjunctiva, extraocular movements grossly intact Neck: Supple Respiratory: Clear to auscultation bilaterally, normal respiratory effort Cardiovascular: Regular rate and rhythm GI: Soft, nontender, nondistended Extremities: Seems to have some trace lower extremity edema Musculoskeletal: Moving both upper extremities, has difficulty moving either lower extremity off the bed but is slightly better able to with the right than left hand when legs are lifted up he is notable to hold the left up at all but is able to hold the right up Neuro: Patient without sustained clonus in ankles, has bilateral patellar reflexes right greater than left Skin: Overall cooperative Psych: Cooperative Results Lab / Micro Data 11/15/24 12:33 11/15/24 12:33 Labs: Laboratory Results - last 24 hr 11/15/24 12:33: WBC 10.5, RBC 4.30 L, Hgb 12.5 L, Hct 38.3 L, MCV 89.1, MCH 29.1, MCHC 32.6, RDW Std Deviation 48.0 H, RDW Coeff of Bud 14.8 H, Plt Count 237, MPV 9.5, Immature Gran % (Auto) 1.300 H,Neut % (Auto) 78.3 H, Lymph % (Auto) 6.4 L, Jerome % (Auto) 13.6 H, Eos % (Auto) 0.2, Baso % (Auto) 0.2, Absolute Neuts (auto) 8.2 H, Absolute Lymphs (auto) 0.67 L, Nucleated RBC % 0, Sodium 126 L, Potassium 4.4, Chloride 92 L, Carbon Dioxide 21.0, Anion Gap 13, BUN 20 H, Creatinine 0.79, Est GFR (MDRD) Non-Af 87, BUN/Creatinine Ratio 25.5 H,Glucose 86, Calcium 8.9 11/15/24 13:42: Urine Color Yellow, Urine Clarity Clear, Urine pH 7.0, Ur Specific Wilton 1.010, Urine Protein 30 H, Urine Glucose (UA) Normal, Urine Ketones Negative, Urine Occult Blood 10 H, UrineNitrite Negative, Urine Bilirubin Negative, Urine Urobilinogen 4 H, Ur Leukocyte Esterase 25 H, Urine RBC 0 SEEN, Urine WBC 0 SEEN, Ur Squamous Epith Cells 0 SEEN, Urine Bacteria 0 SEEN, Urine Mucus 0 SEEN Assessment & Plan Assessment/Plan (1) Weakness of lower extremity: PLAN: Plan # Lower extremity weakness -Patient reports he has chronic weakness in his left lower extremity and that his right lower extremity previously was strong but now relatively is weak compared to previous and this started suddenlyon after which she had afall. On exam patient has much more significant weakness in the left lower extremity compared to right lower extremity -Admit to tele -CT head ordered in ED -MRI ordered along with MRA head and neck once patient refuses any scan requiring contrast -NIH q4hr -asa, statin if patient agreeable to taking -Echo -PT/OT/Speech eval -Teleneuro consult ordered #hyponatremia of unclear chronicity -Sodium 126 with no previous baseline available in our system -Will check TSH, cortisol -Will check serum osmolality and urine studies -Will be given gentle IVF as patient has not been eating or drinking and seems to be somewhat volume depleted -Trend BMP - Also of note patient reports taking multiple natural supplements, unclear if this could be a cause or contributor # Documented history of hypertension -Does not appear to presently be on medications -Will trend BP, may need to add antihypertensive pending trends though unclear if patient would be agreeable # Chronic lower back pain - Patient specifically reports L4-L5 pain since that he has had some increasedpain recently but denies that this was associated with any falls - Back was not tender on palpation at all and he reported actually felt good when palpating the area - Does not have symptoms radiating down legs and has no alarm symptoms - Tylenol as needed and lidocaine patch - PT/OT as above #DVT ppx: Lovenox subcu Shannan Patterson MD Charges/Coding Visit Charges Inpatient E&M: 01490 Init Hosp L2 11/15/24 1503 Cosigner Signature (if applicable): CC: Dr. Guilherme Fallon MD; Dr. Shannan Patterson MD~ Signed [facility]10-09-2024 History of Present illness Narrative* Katiana Bragg PA-C - 02/19/2024 3:15 PM EDT History of Present Illness Philly Joel is a 83 y.o. male presenting today for post-op check from [facility] left periprosthetic proximal femur fracture on 01/28/2024. Overall doing ok. Has mild pain that is not requiring narcotics for pain control. Is currently at a half-way facility for rehab at this time, but [...] Dose Status acetaminophen (Tylenol) 325 mg tablet [id number] Take 3 tablets (975 mg) by mouth every 8 hours. Praful Ebenezer, PA-C Active bisacodyl (Dulcolax) 10 mg suppository [id number] Insert 1 suppository (10 mg) into the rectum once daily. Praful Ebenezer, PA-C Active calcium carbonate (Tums) 200 mg calcium chewable tablet [id number] Chew 1 tablet (500 mg) 4 times a day as needed for indigestion or heartburn. Praful Ebenezer, PA- C Active calcium carbonate-vitamin D3 (Oscal-500) 500 mg-10 mcg (400 unit) tablet [id number] Take 1 tablet bymouth 2 times a day. Jonah Taylor MD Active enoxaparin (Lovenox) 30 mg/0.3 mL syringe [id number] Inject 0.3 mL (30 mg) under the skin every 12 hours. Praful Ebenezer, PA-C Active guaiFENesin (Mucinex) 600 mg 12 hr tablet [id number] Take 1 tablet (600 mg) by mouth 2 times a day as needed for cough. Do not crush, chew, or split. Praful Ebenezer, PA-C Active magnesium hydroxide (Milk of Magnesia) 400 mg/5 mL suspension [id number] Take 30 mL by mouth once daily. Praful Ebenezer, PA-C Active ondansetron (Zofran) 4 mg/2 mL injection [id number] Infuse 2 mL (4 mg) into a venous catheter every 4 hours if needed for nausea or vomiting. Praful Ebenezer, PA-C Active polyethylene glycol (Glycolax, Miralax) 17 gram packet [id number] Take 17 g by mouth 2 times a day. Praful Ebenezer, PA-C Active sennosides (Senokot) 8.6 mg tablet [id number] Take 1 tablet (8.6 mg) by mouth [...] Insecurity: No Food Insecurity (10/27/2021) Received from [facility] Hunger Vital Sign Worried About Running Out of Food in the Last Year: Never true Ran Out of Food in the Last Year: Never true Transportation Needs: No Transportation Needs (01/29/2024) PRAPARE - Transportation Lack of Transportation (Medical): No Lack of Transportation (Non-Medical): No Physical Activity: Sufficiently Active (10/27/2021) Received from [facility] Exercise Vital Sign Days of Exercise per Week: 7 days Minutes of Exercise per Session: 30 min Stress: No Stress Concern Present (10/27/2021) Received from [facility] [employer] - Occupational Stress Questionnaire [...] left femur were obtained in the office todaydemonstrate maintenance of reduction, interval healing, and a [...] agreement with the plan. [facility] Work Phone: 1(256) 243-396410-09-2024 Instructions* Patient Instructions* Katiana Bragg PA-C - 02/19/2024 3:15 PM EDT [...] weeks as scheduled to hopefully advance weightbearing. Katiana Bragg PA-C [phone] documented in [facility]As[facility] Work Phone: 1(759) 111-712409-24-2024 Nurse Note* Lucy Mckeon RN - 02/04/2024 11:38 AM EDT Four eyes completed with Deborah Perry. [facility] Note* Lucy Mckeon RN - 02/04/2024 11:38 AM EDT Four eyes completed with Deborah Perry. documented in [facility]As[facility] Work Phone: 1(153) 711-346909-24-2024 History of Present illness Narrative* MELANIE Alva - 02/04/2024 11:16 AM EDT Auth received for [facility]. [facility]AMMER ADJUSTER requested 1330 stretcher transport. Pending Roundtrip confirmation. [place] complete and sent to SNF. 7000 completed. Will follow up on transport. 1203[facility] confirmed 230 stretcher transport for discharge to [facility]. Report # [phone]. SW updated TCC, team, SNF, daughter, patient, and the floor. MELANIE Alva * Fermin De Luna PTA - 02/04/2024 11:11 AM EDT Physical Therapy Physical Therapy Treatment Patient Name: Philly Joel Department: [place] [address] Room: [address] [place] [address] Today's Date: 02/04/2024 Time Calculation Start Time: [...] L LE. pt verbalized completing HEP exercises, REAL ESTATE VALUER attempted to provide additional exercises however pt [...] shifting and to maintain NWB Outcome Measures: [facility] Basic Mobility Turning from your back to [...] Body Mechanics, taught by Fermin De Luna REAL ESTATE VALUER at 02/04/2024 11:10 AM. Learner: Patient Readiness: [...] 01/29/24 Expected End: 02/12/24 Pain - Adult * Whitney Hartman, OT - 02/03/2024 11:21 AM EDT Occupational Therapy OT Treatment Patient Name: Philly Joel Department: [facility] 6 Room: [address] [place] [address] Today's Date: 02/03/2024 Time Calculation Start Time: [...] ther ex bed leve Precautions: Hearing/Visual Limitations: [place] LE Weight Bearing Status: Left Non-Weight Bearing [...] rotation, chest press with scap retraction Outcome Measures:[facility] Daily Activity Putting on and taking off [...] with modified independent level of assistance donning anddoffing socks and shoes with PRN adaptive equipment [...] assistance and bed rails in order to improvesafety and independence with mobility (Progressing) Start: 01/29/24 Expected End: 02/19/24 Patient will complete sit to stand transfer with modified independent level of assistance and leastrestrictive device in order to improve safety and prepare for out of bed mobility. (Progressing) Start: 01/29/24 Expected End: 02/19/24 * MELANIE Alva - 02/03/2024 10:05 AM EDT [facility] accepted; direct precert team confirmed precert was initiated over the weekend. HAMMER ADJUSTER sent updates to SNF. Pending precert. Will continue to follow. MELANIE Alva * Kaleigh Cedillo Geoffrey, REAL ESTATE VALUER - 02/03/2024 9:25 AM EDT Physical Therapy Treatment Patient Name: Philly Joel Today's Date: 02/03/2024 Room: [address] [place] [address] Time Calculation Start Time: 824 Stop Time: [...] therapy upon approach Precautions: Precautions Hearing/Visual Limitations: [place] LE Weight Bearing Status: Left Non-Weight Bearing [...] reports anxiety about DC planning, anxious to beindependent again. Bed Mobility 1 Bed Mobility 1: [...] Decreased tolerance for upright activites Outcome Measures: [facility] Basic Mobility Turning from your back to [...] 01/29/24 Expected End: 02/12/24 Pain - Adult * Lucy Chen PA-C - 02/03/2024 6:56 AM EDT [facility] - PROGRESS NOTE Patient Name: Philly Joel Admit Date: [id number] : 1940 AGE: 83 y.o. GENDER: male MECHANISM OF INJURY: 83M tx from [facility] after mGLF LOC (yes/no?): no Anticoagulant / Anti-platelet Rx? (for what dx?): no Referring Facility Name (N/A for scene EMR run): [facility] INJURIES: L periprosthetic femur fracture OTHER MEDICAL [...] Trauma, Critical Care, Acute Care Surgery Floor: 22071 TSU: [id number] CHIEF COMPLAINT / OVERNIGHT EVENTS: No acute [...] dressings clean, no strikethrough Compartments soft, compressible Ict Trainer strength 5/5 bilaterally Dorsi/plantarflexion 5/5 bilaterally Skin: [...] results, and imaging pertinent for today's encounter. * Kaleigh Hale REAL ESTATE VALUER - 02/02/2024 12:11 PM EDT Physical Therapy Treatment Patient Name: Philly Joel Today's Date: 02/02/2024 Room: [address] [place] [address] Time Calculation Start Time: 1102 Stop Time: [...] this date. Education and cues to maintain NWB,not limited by dizziness today. Would continue to [...] therapy upon approach Precautions: Precautions Hearing/Visual Limitations: [place] LE Weight Bearing Status: Left Non-Weight Bearing [...] Decreased tolerance for upright activites Outcome Measures: [facility] Basic Mobility Turning from your back to [...] 01/29/24 Expected End: 02/12/24 Pain - Adult * Candido Cole RN - 02/02/2024 10:52 AM EDT 02/02/24 1052 Discharge Planning Living Arrangements Alone Support Systems Children Home or Post Acute Services Post acute facilities (Rehab/SNF/etc) Type of Post Acute Facility Services [facility] Expected Discharge Disposition SNF Does the patient need discharge transport arranged? Yes RoundTrip coordination needed? Yes Patient [facility] be [facility] [phone] when medically ready. Patient will require a pre cert. Will require updated therapy PT/OT to initiate pre cert. Updated clinicals submitted. * Lucy Chen PA-C - 02/02/2024 6:43 AM EDT [facility] - PROGRESS NOTE Patient Name: Philly Joel Admit Date: [id number] : 1940 AGE: 83 y.o. GENDER: male MECHANISM OF INJURY: 83M tx from [facility] after mGLF LOC (yes/no?): no Anticoagulant / Anti-platelet Rx? (for what dx?): no Referring Facility Name (N/A for scene EMR run): [facility] INJURIES: L periprosthetic femur fracture OTHER MEDICAL [...] Trauma, Critical Care, Acute Care Surgery Floor: 60592 TSICU: [id number] CHIEF COMPLAINT / OVERNIGHT EVENTS: No acute [...] thigh surgical dressings clean Compartments soft, compressible Ict Trainer strength 5/5 bilaterally Dorsi/plantarflexion 5/5 bilaterally Skin: [...] results, and imaging pertinent for today's encounter. * Lucy Chen PA-C - 02/01/2024 3:54 PM EDT [facility] - PROGRESS NOTE Patient Name: Philly Joel Admit Date: [id number] : 1940 AGE: 83 y.o. GENDER: male MECHANISM OF INJURY: 83M tx from [facility] after mGLF LOC (yes/no?): no Anticoagulant / Anti-platelet Rx? (for what dx?): no Referring Facility Name (N/A for scene EMR run): [facility] INJURIES: L periprosthetic femur fracture OTHER MEDICAL [...] Trauma, Critical Care, Acute Care Surgery Floor: 97826 TSICU: [id number] CHIEF COMPLAINT / OVERNIGHT EVENTS: No acute events overnight. Pt this morning states belly feels slightly nauseous, tolerating diet well. Discussed placement for rehab. Pt denies any chest pain, shortness of breath, vomiting. Still noBM, increased BR MEDICAL HISTORY / ROS: Admission [...] thigh surgical dressings clean Compartments soft, compressible Ict Trainer strength 5/5 bilaterally Dorsi/plantarflexion LLE 5/5, 3/5 [...] results, and imaging pertinent for today's encounter. * Rosa Mcdermott PTA - 02/01/2024 12:13 PM EDT Physical Therapy Physical Therapy Treatment Patient Name: Philly Joel Department: [place] [address] Room: [address] [place] [address] Today's Date: 02/01/2024 Time Calculation Start Time: 1017 Stop Time: 1045 Time Calculation (min): 28 min Assessment/Plan PT Assessment End of Session Communication: Bedside nurse Assessment Comment: Pt tolerated PT session fair, able to complete supine level exercises, AAROM onLLE, and sit EOB, Pt continues to require [...] with PT. Subjective Precautions: Precautions Hearing/Visual Limitations: [place] LE Weight Bearing Status: Left Non-Weight Bearing [...] to supine.) Stairs Stairs: No Outcome Measures: [facility] Basic Mobility Turning from your back to [...] 12:13 PM Rosa Mcdermott PTA Rehab Office: [phone] * Shoshana Albrecht RN - 02/01/2024 11:35 AM EDT 02/01/24 1013 Discharge Planning Who is requesting discharge planning? Provider Home or Post Acute Services Post acute facilities (Rehab/SNF/etc) Type of Post Acute Facility Services [facility] Expected Discharge Disposition SNF ([facility] Spoke with daughter Dina [phone] to make her aware at this time [facility]. Dina stated this is actually her FOC because it's the closest to her home so this is fine. Secure chat sent to direct submit team requesting for them to submit for precert. [facility] updated of above. Care Transitions team will continue to follow for discharge planning needs. Shoshana Albrecht RN Transitional Director Of Preclinical Research (TCC) [phone] or [phone] * Jinnyalis Moore REAL ESTATE VALUER - 01/31/2024 4:17 PM EDT Physical Therapy Physical Therapy Treatment Patient Name: Philly Joel Department: [place] [address] Room: [address] [place] [address] Today's Date: 01/31/2024 Time Calculation Start Time: [...] he was comfortable and did refused to getout of bed for therapy but agreeable to exercises in the bed. Subjective Precautions: Precautions LE Weight Bearing Status: Left Non-Weight Bearing Medical Precautions: Fall precautions Vital Signs (Past 2hrs) Objective Pain: Cognition: Cognition Overall Cognitive Status: Within Functional Limits Coordination: Activity Tolerance: Treatments: Therapeutic Exercise Therapeutic Exercise Performed: Yes Therapeutic Exercise Activity 1: Pt was provided handout of supine exercises and educated in properexecution. Therapeutic Exercise Activity 2: Supine R LE AROM heel slides, hip abduction/adduction, QS, GS, DF,SLR x10 Therapeutic Exercise Activity 3: Supine L LE AAROM hip abduction (<25% ROM), QS, GS x10 Outcome Measures: [facility] Basic Mobility Turning from your back to [...] 01/29/24 Expected End: 02/12/24 Pain - Adult * Cristiane Arce, MEDICAL MANAGEMENT SPECIALIST-MICRO COMPUTER DATA PROCESSOR - 01/31/2024 2:59 PM EDT [facility] - PROGRESS NOTE Patient Name: Philly Joel Admit Date: [id number] : 1940 AGE: 83 y.o. GENDER: male MECHANISM OF INJURY: 83M tx from [facility] after mGLF LOC (yes/no?): no Anticoagulant / Anti-platelet Rx? (for what dx?): no Referring Facility Name (N/A for scene EMR run): [facility] INJURIES: L periprosthetic femur fracture OTHER MEDICAL [...] Patient was dicussed with Dr. Jeffrey Arce, MEDICAL MANAGEMENT SPECIALIST-MICRO COMPUTER DATA PROCESSOR Trauma, Critical Care, and Acute Care Surgery Ext [phone] (floor), [phone] (ICU) CHIEF COMPLAINT / OVERNIGHT EVENTS: Patient [...] results, and imaging pertinent for today's encounter. * Lin Wing MD - 01/31/2024 2:03 PM EDT Subjective No acute events overnight. This morning, patient reports sleeping well. He states that pain is 1/10. He is eager to be discharged to rehab to get stronger. He still has not had a bowel movement (lastBM Saturday). He is eating less but has a good appetite. Objective Current Facility-Administered Medications Medication Dose Route Frequency Provider Last Rate Last Admin acetaminophen (Tylenol) tablet 975 mg 975 mg oral q8h HIRAM Dunlap PA-C 975 mg at 01/31/24 1333 calcium carbonate (Tums) chewable tablet 500 mg 500 mg oral 4x daily PRN Eliel G Dunlap, PA-C 500 mg at 01/29/24 204 enoxaparin (Lovenox) syringe 30 mg 30 mg subcutaneous q12h Eliel G Dunlap, PA-C 30 mg at 01/31/24 1333 ibuprofen tablet 600 mg 600 mg oral q8h HIRAM Eliel G Dunlap, PA-C 600 mg at 01/31/24 0444 methocarbamol (Robaxin) tablet 500 mg 500 mg oral q6h PRN Eliel G Dunlap, PA-C 500 mg at 01/28/24 0051 ondansetron (Zofran) injection 4 mg 4 mg intravenous q4h PRN Eliel G Dunlap, PA- C 4 mg at 01/30/24 2244 polyethylene glycol (Glycolax, Miralax) packet 17 g 17 g oral Daily Eliel G Dunlap, PA-C 17 g at 01/31/24 0949 sennosides (Senokot) tablet 8.6 mg 1 tablet oral BID Eliel G Dunlap, PA-C 8.6 mg at 01/31/24 0949 Physical [...] Results Component Value Date TSH 0.66 01/30/2024 [id number] 468 01/30/2024 VITD25 33 01/30/2024 Results from [...] and clinical correlation Confirmed by Daphne Hill ([id number]) on 01/28/2024 1:10:[address] abdomen pelvis w IV contrast Narrative: Interpreted By: Nevaeh Lind and Beyersdorf Conner STUDY: CT ABDOMEN PELVIS W IV CONTRAST; 01/27/2024 11:40 pm INDICATION: Signs/Symptoms:fall. COMPARISON: CT pelvis 01/27/2024 ACCESSION NUMBER(S): [id number] ORDERING CLINICIAN: HARINI MENDEZ TECHNIQUE: CT of [...] Grossman. Data analyzed and images interpreted at [facility], [place], [place]. MACRO: Critical Finding: See findings. Notification was initiated on 01/28/2024 at 12:59 am by Nevaeh Lind. (-YCF-) Instructions: Signed by: Nevaeh Lind 01/28/2024 12:59 AM Dictation workstation: [id number] XR chest 1 view Narrative: Interpreted By: Nevaeh Lind and Ohs Zachary STUDY: XR CHEST 1 VIEW; 01/27/2024 8:52 pm INDICATION: Signs/Symptoms:preop clearance. COMPARISON: None. ACCESSION NUMBER(S): [id number] ORDERING CLINICIAN: DEANA GONZALEZ FINDINGS: AP radiograph of the chest [...] Song Lozoya. This study was interpreted at [place], [place]. MACRO: None Signed by: Nevaeh Lind 01/28/2024 12:36 AM Dictation workstation: [id number] XR hip left with pelvis when performed 2 or 3 views, XR knee left 1-2 views Narrative: Interpreted By: Nevaeh Lind and Ohs Zachary STUDY: XR HIP LEFT WITH PELVIS WHEN PERFORMED 2 OR 3 VIEWS; XR KNEE LEFT 1-2 VIEWS 01/27/2024 8:52 pm INDICATION: Signs/Symptoms:femur fracture COMPARISON: Pelvic radiograph 01/27/2024. ACCESSION NUMBER(S): [id number]; [id number] ORDERING CLINICIAN: DEANA GONZALEZ TECHNIQUE: AP view of the pelvis [...] Song Lozoya. This study was interpreted at [place], [place]. MACRO: None Signed by: Nevaeh Lind 01/28/2024 12:34 AM Dictation workstation: [id number] DATA: EKG: QTC Encounter Date: 01/27/24 ECG 12 Lead Result Value Ventricular Rate 67 Atrial Rate 67 HI Interval 192 QRS Duration 90 QT Interval 392 QTC Calculation(Bazett) 414 P [place] 30 R [place] 39 T [place] 34 QRS Count 10 Q Onset 220 P Onset 124 P Offset 185 T Offset 416 QTC Fredericia 407 Narrative Normal sinus rhythm Normal ECG No previous ECGs available See ED provider note for full interpretation and clinical correlation Confirmed by Daphne Hill ([id number]) on 01/28/2024 1:10:44 AM Anti-psychotics in 48 hours: None Opioids/Benzodiazepines in 48 hours: None Anticholinergics on board: No Restraints: No Indwelling catheters: No Last BM: Saturday UO in 24 hours: -2L Activity in the past 24 hours: working with PT/OT, sat in chair briefly Need for ambulatory devices: was using a cane occasionally prior to admission Assessment/Plan Philly Joel is an 83 y.o. male, with [...] PLAN: - please engage music therapy and motion and time study teacher services Please consider the following general measures [...] was previously on amlodipine and/or lisinopril but self-discontinuedthese medications. Blood pressure control has been good [...] see providers regularly but has seen Dr. Guilherme Fallon at [facility] previously Goals of Care: -Health care power of wire communications engineer: none, wants his daughter to make decisions on his behalf if needed,daughter would like assistance in healthcare power of wire communications engineer paperwork -Living will: none Code status: patient [...] over the weekend, please page Geriatrics pager [phone] Lin Wing MD Internal Medicine PGY1 Geriatric Consult Team Associated attestation - Daniela Loco MD - 01/31/2024 5:04 PM EDT I saw and evaluated the patient. I personally obtained the love and critical portions of the historyand physical exam or was physically present for love and critical portions performed by the resident. I reviewed the resident's documentation and discussed the patient with the resident. I agree with the resident's medical decision making as documented in the note. * MELANIE Alva - 01/31/2024 9:08 AM EDT Per TCC, daughter requesting a list of SNFs in [facility]. HAMMER ADJUSTER sent new SNF list to daughter. [facility] and [facility] did not accept. Care Transitions will continue to follow. 1538-Daughter provided 4 SNF choices. Referrals sent for review. MELANIE Alva * MELANIE Alva - 01/30/2024 4:12 PM EDT Per TCC, patient is [facility]. MELANIE updated daughter Dina on moderate intensity PT recommendation. Daughter confirmed they are agreeable to SNF. When prompted, daughter states she is familiar with [facility] and [facility] Referrals submitted for review. HAMMER ADJUSTER sent SNF [facility] to daughter. Care Transitions will continue to follow. MELANIE Alva * Ravindra Ferguson, S-PT - 01/30/2024 12:25 PM EDT Physical Therapy Physical Therapy Treatment Patient Name: Philly Joel Department: [place] [address] Room: [address] [place] [address] Today's Date: 01/30/2024 Time Calculation Start Time: 1015 (split session [id number]) Stop Time: 1129 (split session [id number]) Time Calculation (min): 43 min Assessment/Plan PT [...] complete transfers with maxAx1 to stand and [id number] transfer between bed and chair. Able to [...] has been feeling good. (Split PT session: [id number], 5040-1605) Subjective Precautions: Precautions Hearing/Visual Limitations: Pt [facility] LE Weight Bearing Status: Left Non-Weight Bearing [...] maintaining non-WB status on L LE to ensureproper healing. However, pt still displays non- compliance with functional mobility. Therapeutic Activity 3: Increased [...] verbal cues for pt to perform hip bridgeand scoot hips towards center of bed Transfers Transfer: Yes Transfer 1 Transfer From 1: Bed to Transfer to 1: Stand Technique 1: Sit to stand Transfer Device 1: Walker Transfer Level of Assistance 1: Maximum assistance, Moderate verbal cues Trials/Comments 1: MaxA to extend hips and stand to FWW, unable to maintain non- WB on L LE despite frequent verbal cueing [...] on L LE. Pt continues to be non- compliant with non-WB order. Outcome Measures: [facility] Basic Mobility Turning from your back to [...] 01/29/24 Expected End: 02/12/24 Pain - Adult * Praful Sol PA-C - 01/30/2024 7:23 AM EDT [facility] - PROGRESS NOTE Patient Name: Philly Joel Admit Date: [id number] : 1940 AGE: 83 y.o. GENDER: male 83 male presenting to [facility] 2 days following a mGLF. baseline holistic, does not see doctor LOC (yes/no?): no Anticoagulant / Anti-platelet Rx? (for what dx?): no Referring Facility Name (N/A for scene EMR run): [facility] INJURIES/problems: Non-displaced L periprosthetic femur fracture Post op anemia INCIDENTAL FINDINGS: Gastric thickening, hiatal hernia PROCEDURES: 01/27: ORIF L femur TODAY'S ASSESSMENT AND PLAN OF CARE: # Left femur fx - Non weight bearing left lower extremity - Pain: APAP 975mg Q8h hiram, Ibuprofen 600mg Q8h hiram, Robaxin 500mg Q6h PRN (reaction anaphylaxis morphine/codeine) [...] choices and placement. Patient discussed with attending, Dr. Jeffrey Sol PA-C Trauma, Critical Care, and Acute Care Surgery [id number] Total face to face time spent with [...] lower leg: Edema present. Comments: LLE: Post-operative Curtis and mepilex in place with moderate serosang [...] results, and imaging pertinent for today's encounter. * Jonah Taylor MD - 01/30/2024 5:36 AM EDT Orthopaedic Surgery Progress Note Subjective: Pain well [...] MSK: LLE: - Skin intact around heavy curtis, - Post-operative Curtis and mepilex in place without strikethrough bleeding. [...] course Jonah Taylor MD PGY-1 Orthopedic Surgery [facility] Epic Chat Preferred We will follow [...] surgery for post-operative appointment (patient may call [phone] to schedule). Please page with questions. * Ravindra Marty, S-PT - 01/29/2024 3:43 PM EDT Physical Therapy Physical Therapy Evaluation Patient Name: Philly Joel Department: [facility] 6 Room: 6023/6023-A Today's Date: 01/29/2024 Time Calculation Start Time: 1035 Stop Time: 1114 Time Calculation (min): 39 min Assessment/Plan PT Assessment PT Assessment Results: Decreased strength, Decreased range of motion, Decreased endurance, Impairedbalance, Decreased mobility, Orthopedic restrictions, Pain Rehab Prognosis: Good Evaluation/Treatment Tolerance: Patient limited by pain Medical Staff Made Aware: Yes Strengths: Attitude of self, Ability to acquire knowledge End of Session Communication: Bedside nurse Assessment Comment: Philly Joel is a 83 y.o. male who was referred to inpatient physical therapy s/p ORIF L femur on 01/28/24 following a fall. The patient presents with the current impairments ofdecreased strength, decreased endurance, impaired balance, impaired functional [...] None Home Living Comments: Pt lives with upholstery auto trimmer. 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 Arrives A&Ox4, no respiratory distress noted while on RA, PERRLA documented in this encounterUnHolzer [facility] System Work Phone: [phone]) 369-325409-16-2024 Emergency department Triage note* Jinny Marques RN - 01/27/2024 6:35 PM EDT Patient comes in as a transfer from [facility] here for an orthopedic consult; he fell on Saturday after tripping over a tree stump and landing on his L hip and elbow; denies LOC, denies hitting his head, denies anticoagulation use; waited until today to go to [facility], where they found him to have a L hip fx; patient was given 50mcg of Fentanyl prior to leaving [facility], and denies pain on arrival States his only PMHx is a heart murmur, which he follows his PCP for and bilateral hip replacementsin 2009 Arrives A&Ox4, no respiratory distress noted while on RA, PERRLA [facility]09-16-2024 Physician Emergency department Note * Deana Gonzalez MD - 01/27/2024 6:35 PM EDT Limitations to History: None HPI: Philly Joel is a 83 y.o. who presents to the ED with L periprosethic femur fracture from [facility]. He was standing on wooden pallet and it broke and he fell down. He landed right on his left hip. He was having worsening pain it was difficult for him to walk at home so went to [place] where he was found to have a left periprosthetic femur fracture. Complains of L4-L5 pain that is chronic for him but this is not new or worse. He denies hitting his head he denies blood thinner use. VS: BP 99/52 Pulse 67 Resp 16 Ht 1.854 m (6' 1) Wt 89.8 kg (198 lb) SpO2 96% BMI 26.12kg/m Physical Exam: Gen: Alert, NAD Head/Neck: NCAT, [...] rate of 67, normal sinus rhythm, normal axisintervals ST segments and T waves [RG] ED Course User Index [RG] Deana Gonzalez MD Diagnoses as of 01/27/242229 Closed fracture of left femur, unspecified fracture morphology, unspecified portion of femur, initial encounter (Multi) Medications - No data to display Discussion of Management with Other Providers: I discussed the patient/results with: Trauma and Ortho Deana Gonzalez MD 01/27/242229 [facility] Work Phone: 1(380) [phone] Telephone encounter Note* Telephone Encounter - SITA Cotto CNP - 01/08/2024 9:31 AM EDT Appointment noted. [facility] [employer] Work Phone: [phone]) 304-831208-28-2024 Miscellaneous Notes* Telephone Encounter - SITA Cotto CNP - 01/08/2024 9:31 AM EDT Appointment noted. 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 Has had trouble with drooling since. Will have trouble swallowing if heis eating too fast, will regurgitate. Ongoing since April. R: No appointments with Dr. Fallon until February, scheduled with Esme Denton NP 01/15 at 10:40a. AWV with Dr. Fallon scheduled 03/11 at 1:40p. Patient states he has medicare A/B and a new supplement. Will bring insurance information to appointment. Patient understands care advice. No further needs atthis time. Patient instructed to call back with new or worsening symptoms. Reason for Disposition Swallowing difficulty is a chronic symptom (recurrent or ongoing AND present > 4 weeks) All other mouth symptoms (Exceptions: Dry mouth from not drinking enough liquids, chapped lips.) Protocols used: Swallowing Eqjhtuszos-ZSABU-PT, Mouth Ciolmukc-PUHTP-JS documented in this [facility]08-27-2024 Telephone encounter Note* Telephone Encounter - Martine Vazquez RN - 01/07/2024 3:55 PM EDT S: Patient spoke with [facility] nurse regarding Numbness of face, unregulated saliva B: Onset of symptoms/concern April A: Would like to schedule wellness check, is also having an issue with 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 Has had trouble with drooling since. Will have trouble swallowing if heis eating too fast, will regurgitate. Ongoing since April. R: No appointments with Dr. Fallon until February, scheduled with Esme Denton NP 01/15 at 10:40a. AWV with Dr. Fallon scheduled 03/11 at 1:40p. Patient states he has medicare A/B and a new supplement. Will bring insurance information to appointment. Patient understands care advice. No further needs atthis time. Patient instructed to call back with new or worsening symptoms. Reason for Disposition Swallowing difficulty is a chronic symptom (recurrent or ongoing AND present > 4 weeks) All other mouth symptoms (Exceptions: Dry mouth from not drinking enough liquids, chapped lips.) Protocols used: Swallowing Wlfnhuztax-UBKJP-YP, Mouth Ulfnxvjd-WDCAU-EZ [facility] [id number] Instructions* Patient Instructions* Toya Jacobsen PA-C - 01/02/2024 11:18 AM [...] none. Toya Jacobsen PA-C documented in this encounterHolmes County [facility]08-22-2024 NoteHNO ID: [id number] Author: TOYA JACOBSEN PA-C Service: ? Author Type: Physician Hoop Rolls Operator Type: Progress Notes Filed: 01/02/2024 11:35 Note [...] allergy or URI symptoms. No cough, n/v/d, CABELLO, or rash. Denies fever, chills, sweats, or [...] Pre-treatment: No pre-treatment Treatment (more content not included)...[facility]08-22-2024 History of Present illness Narrative* Toya Jacobsen PA-C - 01/02/2024 10:48 AM EDT 01/02/2024 Patient presents with: Piece of Q-tip in right ear: PT was taking a shower and cleaned ears with a q- tip, pt states that aq-tip broke off in right ear, SUBJECTIVE: This [...] allergy or URI symptoms. No cough, n/v/d, CABELLO, or rash. Denies fever, chills, sweats, or [...] constitutional-neg, HENT-ear FB, wax, Eyes- neg, heart-neg, respiratory- neg, skin-neg, lymph-neg, Allergy- neg, neuro-neg, - All [...] which included preparing to see the patient, cqif-ls-mlgx patient care, completing clinical documentation, performing a medically appropriate examination, counseling and educating the patient/family/caregiver, ordering medications, tests, or p rocedures, and communicating results to the patient/family/caregiver. documented in this encounterHolmes County [facility]10-10-2023 Instructions* Patient Instructions* Joe Guo APRN.[facility] - 02/19/2023 11:48 AM EDT Cellulitis Cellulitis is an infection of your skin and the layers of tissue below your skin. It can affect anypart of the body. It most often affects [...] filled right away, and take them exactly asordered. Do not use extra antibiotic creams or [...] with your doctor about how to lower theswelling. Your doctor may want you to wear [...] smell coming from the cut or wound site;wound site opens up; blisters form at the [...] you are feeling worse documented in this encounterHolmes County [facility]10-10-2023 NoteHNO ID: [id number] Author: Joe Guo APRN.MARCELA Service: ? Author Type: Nurse Practitioner Type: Progress Notes Filed: 02/19/2023 12:01 PM Note Text: Subjective Philly Joel is a 82 year old year [...] Puncture wound of le (more content not included)...[facility] 02-19-2023 History of Present illness Narrative* Joe Guo APRN.[facility] - 02/19/2023 11:34 AM EDT Images from the original note were not included. Subjective Philly Joel is a 82 year old year [...] Had mole removed 1 week prior and isrequesting new bandage be placed on site if [...] deformity, lacerations, tenderness or bony tenderness. Normal rangeof motion. Normal strength. Normal sensation. There is [...] of left index finger with associated localized erythema- patient will be given prescription for Keflex for [...] any of the aforementioned symptoms, prompt ED evaluationrecommended as patient may require IV antibiotics at that time. At the present time, I feel conservative management with oral antibiotics, as well as keeping site clean and dry, doing necessary dressing changes and monitoring for worsening symptoms to be appropriate at this time given mild nature of presentation. 3) wound check-patient had mole removed by geothermal powerplant mechanic 1 week prior, patient reports no complications [...] home dressing changes. Advise close follow-up with geothermal powerplant mechanic as needed. Patient given educational materials - see patient instructions. Discussed use, benefit, and side effects of prescribed medications. All patient questions answered. Pt voiced understanding and agrees with treatment plan. Patient advised if symptoms worsen or persist, they are to follow up with PCP or ED. Patient agreeable with treatment plan. Soraya was used to dictate this note. Joe Guo CNP 02/19/2023 11:34 AM documented in this encounterHolmes County [facility]08-24-2023 Telephone encounter Note * Telephone Encounter - Guilherme Fallon MD - 01/03/2023 10:06 AM EDT Based on my last visit he refused to complete this with any sort of contrast and did not wish to proceed further. If this has changed please let me know. [facility] [id number] Miscellaneous Notes* Telephone Encounter - Guilherme Fallon MD - 01/03/2023 10:06 AM EDT Based on my last visit he refused to complete this with any sort of contrast and did not wish to proceed further. If this has changed please let me know. * Telephone Encounter - Kiara [place] - 01/03/2023 8:11 AM EDT Name of caller: Iris Contact phone number: [phone] Relationship to Patient: [address] [facility] Provider: [facility] Practice: [facility] Chief Complaint/Reason for Call: Iris called in [...] return their call: No documented in this encounterSAdams County [id number] Telephone encounter Note* Telephone Encounter - Kiara Stanislav - 01/03/2023 8:11 AM EDT Name of caller: Iris Contact phone number: [phone] Relationship to Patient: [address] Cardiology Provider: [facility] Practice: [facility] Chief Complaint/Reason for Call: Iris called in [...] business hours to return their call: No [facility] [id number] Telephone encounter Note* Telephone Encounter - Guilherme Fallon MD - 12/24/2022 1:17 PM EDT Mychart message sent. [facility] [id number] Miscellaneous Notes* Telephone Encounter - Guilherme Fallon MD - 12/24/2022 1:17 PM EDT Mychart message sent. * Telephone Encounter - Caridad Rudolph CMA - 12/24/2022 12:50 PM EDT Detailed message given to patient, who voiced understanding. Patient does not have a urologist and questions who you would refer him to? Please respond to patient via My Chart with your referral/recommendation. * Telephone Encounter - Caridad Rudolph CMA - 12/24/2022 12:47 PM EDT Per Dr. Fallon's lab result note: Kamryn Ibrahim, Only finding is that your PSA is quiet high at 18. I would recommend follow up with urology given how high this is, as it may represent prostate cancer. It has almost doubled from last year. Sincerely, Guilherme Fallon MD * Telephone Encounter - Caridad Rudolph CMA - 12/24/2022 10:05 AM EDT Left message to call back on patient's name-identified voicemail. Please relay the message to the patient. documented in this encounterSAdams County HospitalAtbkgf26-04-3123 Telephone encounter Note* Telephone Encounter - Caridad Rudolph CMA - 12/24/2022 12:50 PM EDT Detailed message given to patient, who voiced understanding. Patient does not have a urologist and questions who you would refer him to? Please respond to patient via My Chart with your referral/recommendation. [facility] CenterXwpjav28-31-1807 Telephone encounter Note* Telephone Encounter - Caridad Rudolph CMA - 12/24/2022 12:[address] Fallon's lab result note: Kamryn Ibrahim, Only finding is that your PSA is quiet high at 18. I would recommend follow up with urology given how high this is, as it may represent prostate cancer. It has almost doubled from last year. Sincerely, Guilherme Fallon MD [facility] CenterDxzfzb90-16-4175 Telephone encounter Note* Telephone Encounter - Caridad Rudolph CMA - 12/24/2022 10:05 AM EDT Left message to call back on patient's name-identified voicemail. Please relay the message to the patient. [facility] CenterPgkyrv21-95-0027 Evaluation + Plan note* Assessment & Plan Note - Guilherme Fallon MD - 11/24/2022 11:18 PM EDTAssociated Problem(s): Elevated PSA Continuing to follow PSA. [facility] CenterYdnudn50-68-9087 Miscellaneous Notes* Assessment & Plan Note - Guilherme Fallon MD - 11/24/2022 11:18 PM EDTAssociated Problem(s): Elevated PSA Continuing to follow PSA. * Assessment & Plan Note - Guilherme Fallon MD - 11/24/2022 11:16 PM EDTAssociated Problem(s): Primary hypertension His BP is well controlled today on amlodipine only. No change to this. Basic labs ordered for monitoring. Discussed rationale for previously ordered Echo (new murmur identified at previous visit). Herefuses secondary to use of contrast. documented in this encounterSAdams County HospitalOfavtd53-04-3869 Evaluation + Plan note* Assessment & Plan Note - Guilherme Fallon MD - 11/24/2022 11:16 PM EDTAssociated Problem(s): Primary hypertension His BP is well controlled today on amlodipine only. No change to this. Basic labs ordered for monitoring. Discussed rationale for previously ordered Echo (new murmur identified at previous visit). Herefuses secondary to use of contrast. [facility] CenterYnbhid12-60-7055 History of Present illness Narrative* Guilherme Fallon MD - 11/22/2022 11:00 AM EDT Images from the original note were not included. [facility] [address] [facility] [address] Dept: [phone] Dept Chief Complaint: Philly Joel is an 82 y.o. male here for an annual wellness visit. Assessment/Plan : Problem List Items Addressed This Visit Circulatory Primary hypertension His BP is well controlled today on amlodipine only. No change to this. Basic labs ordered for monitoring. Discussed rationale for previously ordered Echo (new murmur identified at previous visit). Herefuses secondary to use of contrast. Relevant Medications [...] of current healthcare providers: Patient Care Team: Guilherme Fallon MD as PCP - General Orders [...] increase his / her physical activity level atthis time Hearing/ Vision: Hearing / Vision Do [...] alcoholic drink first thing in the morning toget yourself going after a night of heavy [...] kg/m No results found. documented in this [facility]07-13-2023 Instructions* Patient Instructions* Guilherme Fallon MD - 11/22/2022 11:00 AM EDT Personalized Preventative Plan for Philly Joel - 11/22/2022 Medicare offers a range of preventative health benefits. Some of the tests and screenings are paid in full while others may be subject to a deductible, co- insurance, and / or copay. Some of these benefits include a comprehensive review of your medical history including lifestyle, illnesses that mayrun in your family, and various assessments and [...] Recommendations: A preventive eye exam by an blind eyeletter is recommended every 1-2 years to screen for glaucoma, cataracts, macular degeneration, and other eye disorders. A preventive dental visit is recommended every 6 months. Try to get at least 150 minutes of exercise per week or 10,000 steps per day on a pedometer. You need 1200-1500mg of calcium and 9849-2616 international units of vitamin D per day. [...] bicycle or a motorcycle documented in this [facility]06-16-2023 History of Present illness Narrative* Larissa Denton, MEDICAL MANAGEMENT SPECIALIST - MICRO COMPUTER DATA PROCESSOR - 10/26/2022 11:20 AM EDT Images from the original note were not included. [facility] [address] [facility] [address] Dept: [phone] Dept Visit Date: 10/26/22 HPI: Philly Joel is a 82 y.o. male who [...] (Norvasc) 10 MG tablet 2. Dizziness Plan: Philly was seen today for dizziness. Diagnoses and [...] Bhatt 10/26/2022 2:50 PM documented in this [facility]06-13-2023 Telephone encounter Note* Telephone Encounter - Toya Cantuimm - 10/23/2022 3:45 PM EDT Made appt 10/26 at 11:20 with Larissa Fallon's limited availability- pt states he needs medication changed sooner rather than later [facility] CenterHwonqa74-22-2591 Miscellaneous Notes* Telephone Encounter - Toya Car - 10/23/2022 3:45 PM EDT Made appt 10/26 at 11:20 with Larissa Fallon's limited availability- pt states he needs medication changed sooner rather than later * Telephone Encounter - Noa Celaya MA - 10/23/2022 2:49 PM EDT LM on name identified VM to return call regarding response from Dr Fallon. Please schedule pt for follow up with Dr Fallon * Telephone Encounter - Guilherme Fallon MD - 10/23/2022 1:04 PM EDT There is not another way to my [...] for service animals and not emotional support. * Telephone Encounter - Noa Celaya MA - 10/23/2022 9:[address] Fallon: I spoke with pt, he is concerned about the contrast dye in the ECHO, brother almost diedfrom the contrast. His test is scheduled at [facility] 11/06/2022 Pt also states he has been very sick since started the lisinopril. Pt stated his balance is off, CABELLO, nausea. Cannot eat and has lost 17 lbs since his office visit in 09/05/22. Please advise. Pt stated he may need to move as in Jun and cannot stay in home. Pt is trying to find an apartment that takes his dog. Does not want to part with it. If needed, would you write a letter stating the necessity of keeping his pet? * Telephone Encounter - Ashley Menard - 10/18/2022 1:12 PM EDT Patient came into office and wanted his Echo Order printed to take it somewhere else since [facility] is[facility] too far. Patient has questions about the test that was ordered and patient is requesting phone call back. documented in this encounterSAdams County HospitalGoegew73-05-5364 Telephone encounter Note* Telephone Encounter - Noa Celaya MA - 10/23/2022 2:49 PM EDT LM on name identified VM to return call regarding response from Dr Fallon. Please schedule pt for follow up with Dr Fallon [facility] CenterOxzvbz16-56-5721 Telephone encounter Note* Telephone Encounter - Guilherme Fallon MD - 10/23/2022 1:04 PM EDT There is not another way to my [...] for service animals and not emotional support. [facility] CenterBfgpck55-89-8405 Telephone encounter Note* Telephone Encounter - Noa Celaya MA - 10/23/2022 9:[address] Fallon: I spoke with pt, he is concerned about the contrast dye in the ECHO, brother almost diedfrom the contrast. His test is scheduled at [facility] 11/06/2022 Pt also states he has been very sick since started the lisinopril. Pt stated his balance is off, CABELLO, nausea. Cannot eat and has lost 17 lbs since his office visit in 09/05/22. Please advise. Pt stated he may need to move as in Jun and cannot stay in home. Pt is trying to find an apartment that takes his dog. Does not want to part with it. If needed, would you write a letter stating the necessity of keeping his pet? [facility] CenterYcffss88-99-8617 Telephone encounter Note* Telephone Encounter - Ashley Menard - 10/18/2022 1:12 PM EDT Patient came into office and wanted his Echo Order printed to take it somewhere else since [facility] isscheduling out too far. Patient has questions about the test that was ordered and patient is requesting phone call back. [facility] CenterRueuay07-43-6474 Miscellaneous Notes* Result Encounter Note - Guilherme Fallon MD - 09/06/2022 8:56 AM EDT Your TSH is low but T3 and T4 are normal. Because those are normal I do not recommend starting anything. This is something we will just want to continue monitoring. My suggestion would be repeating in 6 months to a year and less symptoms of either hypo or hyperthyroid occur. documented in this [facility]04-27-2023 Progress note* Result Encounter Note - Guilherme Fallon MD - 09/06/2022 8:56 AM EDT Your TSH is low but T3 and T4 are normal. Because those are normal I do not recommend starting anything. This is something we will just want to continue monitoring. My suggestion would be repeating in 6 months to a year and less symptoms of either hypo or hyperthyroid occur. [facility] CenterRnnist11-00-0147 History of Present illness Narrative* Guilherme Fallon MD - 09/05/2022 9:20 AM EDT Images from the original note were not included. [facility] [address] [facility] [address] Visit Type: Office Visit PCP: Guilherme Fallon MD Reason for Visit: Hypertension Assessment and Plan Philly was seen today for hypertension. Diagnoses and [...] disease include male gender. Past treatments include CURTIS inhibitors. The current treatment provides mild improvement. There are no compliance problems. Identifiable causes of hypertension include a thyroid problem (elevated TSH - repeating to confirm). [x] Home BP Checks (states high in the morning like today, states in the 130- 140s/80s in the afternoon) [] Low salt Diet [...] Name Age of Onset Cancer Mother Other (81398) Brother No Known Problems Daughter Objective BP [...] Medication Reason lisinopril 10 MG tablet Reorder Guilherme Fallon MD 09/07/2022 11:09 PM documented in this encounterSAdams County HospitalYymbzu21-78-8736 Telephone encounter Note* Telephone Encounter - Rochelle Helton MA - 08/17/2022 3:27 PM EDT Spoke to pt released message from Isabel to pt. Pt understood and will schedule test. [facility] [id number] Miscellaneous Notes* Telephone Encounter - Rochelle Helton MA - 08/17/2022 3:27 PM EDT Spoke to pt released message from Isabel to pt. Pt understood and will schedule test. * Telephone Encounter - Isabel Colmenares - 08/17/2022 1:42 PM EDT Home Sleep Study; Auth approved through [employer] Auth#; [id number] Exp; 11.14.2022 Call; [phone] to schedule ECHO; Auth approved through [employer] Auth#; [id number] Exp; 11.11.2022 Call; [phone] to schedule * Telephone Encounter - Guilherme Fallon MD - 08/17/2022 12:50 PM EDT Unsure and suspect unlikely to get tests done before that appointment. Due to multiple factors, most of that testing can take a month or more to get done. Taking in the morning is fine. The dose may need increased to help bring that down. * Telephone Encounter - Bev Callahan RN - 08/17/2022 9:29 AM EDT S: Patient spoke with [facility] nurse regarding hypertension B: Onset of symptoms/concern couple weeks, high this morning A: Pt was seen last week for high BP. Was given lisinopril. Had an episode of difficulty walking overa week ago. Was seen at [facility] and BP was elevated at that time and was sent to the ED. He has been having some dizziness, vertigo, and nausea episodes in the mornings. It is not every morning, seem tooccur mostly when under a lot of stress. [...] up in the morning. To call back ifdevelop symptoms again or if BP is elevated. Patient understands care advice. Please contact pt at [phone] to set up ECHO and cpap testing. Instructed to call back with any further questions or concerns. Reason for Disposition Systolic BP >= 130 OR Diastolic >= 80, and is taking BP medications Protocols used: Blood Pressure - [id number]-YF documented in this encounterSAdams County HospitalNezboj73-65-5601 Telephone encounter Note* Telephone Encounter - Isabel Colmenares - 08/17/2022 1:42 PM EDT Home Sleep Study; Auth approved through [employer] Auth#; [id number] Exp; 11.14.2022 Call; [phone] to schedule ECHO; Auth approved through [employer] Auth#; [id number] Exp; 11.11.2022 Call; [phone] to schedule [facility] CenterKvenjr67-45-1510 Telephone encounter Note* Telephone Encounter - Guilherme Fallon MD - 08/17/2022 12:50 PM EDT Unsure and suspect unlikely to get tests done before that appointment. Due to multiple factors, most of that testing can take a month or more to get done. Taking in the morning is fine. The dose may need increased to help bring that down. [facility] CenterNrxscs29-38-2448 Telephone encounter Note* Telephone Encounter - Bev Callahan RN - 08/17/2022 9:29 AM EDT S: Patient spoke with [facility] nurse regarding hypertension B: Onset of symptoms/concern couple weeks, high this morning A: Pt was seen last week for high BP. Was given lisinopril. Had an episode of difficulty walking overa week ago. Was seen at [facility] and BP was elevated at that time and was sent to the ED. He has been having some dizziness, vertigo, and nausea episodes in the mornings. It is not every morning, seem tooccur mostly when under a lot of stress. [...] up in the morning. To call back ifdevelop symptoms again or if BP is elevated. Patient understands care advice. Please contact pt at [phone] to set up ECHO and cpap testing. Instructed to call back with any further questions or concerns. Reason for Disposition Systolic BP >= 130 OR Diastolic >= 80, and is taking BP medications Protocols used: Blood Pressure - Pdak-[id number]-FJ [facility] [id number] History of Present illness Narrative* Larissa Aceves ATC - 08/15/2022 9:00 AM EDT Images from the original note were not included. Podiatry Last PCP Visit and Provider: Office Visit 08/08/2022 [facility] Family Medicine Guilherme Fallon MD Family Medicine Primary hypertension +4 more Dx ER Follow-up Reason for Visit * Matthew Perez PA-C - 08/15/2022 9:00 AM EDT Images from the original note were not included. VENESSA Tony PA-C [facility] [address] [place] [address] Dept: [phone] Dept Patient: Philly Joel : 1940 Date of Exam: 08/15/2022 Visit Type: Established Patient with Orthopedics; New to Provider Subjective 08/15/2022 Chief Complaint: Philly Joel is a 82 y.o. male presenting to clinic for: fungal toenails - yellow thick lifted toenails on both feet, onset 10 years ago - toenails are catching on socks and are painful in shoe gear due to their size, some difficulty inwalking as well - no podiatry care in [...] 236 lb (107 kg) BMI 31.14 kg/m ................................................................................ .................... ................................................................................ .................... ........................................................................ Focused Podiatric Physical Exam: Vascular Exam: Posterior Tibial pulse: present and palpable bilaterally. Dorsalis Pedis pulse: present and palpable bilaterally. Dermatologic Exam: Normal healthy skin appearance. Skin is dry to touch bilaterally. Web spaces aredry and intact. Toenails 1-10 are abnormal with severe degree of discoloration, elongation, and thickening. No overgrown callosities. No ulcerations present. 08/15/2022 Toenails post debridement Neurologic Exam: Bilateral lower extremity are sensate to light touch. Musculoskeletal Exam: Pes rectus foot. ................................................................................ .................... ................................................................................ .................... ........................................................................ Medical Record Review: The medications, problem list, allergies, and pertinent medical history werereviewed in the electronic chart. Assessment and Plan Assessment: Diagnosis Plan 1. Pain due to onychomycosis of toenails of both feet econazole nitrate 1 % cream 2. Age-related physical debility 3. Enlarged and hypertrophic nails [facility] Podiatry Plan: Fungal nails, chronic stable [...] for subungual ulceration due to shear forces. ................................................................................ .................... ................................................................................ .................... ........................................................................ Complexity: reviewed referral note Risk: mod - prescription Follow Up: 3mo nail care Philly was seen and examined during the visit today. Together we discussed the main issues affectinghim and the plan going forward. Philly verbalized understanding and agreement to the plan. Philly wasadvised to read the AVS. Lastly, he was instructed to contact myself via Spritzt or call the officewith any questions or concerns. Matthew Perez PA-C documented in this [facility]03-30-2023 Miscellaneous Notes* Result Encounter Note - Guilherme Fallon MD - 08/09/2022 8:11 AM EDT His lab work shows a very mildly low TSH. This usually means that he has hyperactive thyroid. That being said it is very close to normal. It would be reasonable to repeat this in approximately 1 month to see if it is continuing to downtrend. This may have been thrown off any number of things. Cholesterol looked overall good. documented in this [facility]03-30-2023 Progress note* Result Encounter Note - Guilherme Fallon MD - 08/09/2022 8:11 AM EDT His lab work shows a very mildly low TSH. This usually means that he has hyperactive thyroid. That being said it is very close to normal. It would be reasonable to repeat this in approximately 1 month to see if it is continuing to downtrend. This may have been thrown off any number of things. Cholesterol looked overall good. [facility] [id number] History of Present illness Narrative* Guilherme Fallon MD - 08/08/2022 9:20 AM EDT Images from the original note were not included. [facility] [address] [facility] [id number] Visit type: Established Patient Reason for Visit: ER Follow-up (Hypertension, dizziness, summa Appling, had labs and MRI) Assessment and Plan Philly was seen today for er follow-up. Diagnoses and all orders for this visit: Primary hypertension - Home sleep test; Future - lisinopril 10 MG tablet; Take 1 tablet (10 mg) by mouth daily. - TSH; Future - Lipid panel; Future - TSH - Lipid panel Dizziness and giddiness Observed sleep apnea - Home sleep test; Future Enlarged and hypertrophic nails - [facility] Podiatry; Future Newly recognized murmur - [...] weeks (around 09/05/2022) for Hypertension. Subjective HPI Philly Joel presented to the office for follow-up on an ER visit. He was in seen in the ER 08/05/2022 secondary to having dizziness and presented there with significant hypertension. He had labs bay CT while there which demonstrated no specific [...] Name Age of Onset Cancer Mother Other ([id number]) Brother No Known Problems Daughter Objective BP [...] Clean Up: There are no discontinued medications. Guilherme Fallon MD 08/10/2022 10:56 PM documented in this [facility]01-16-2023 Instructions* Patient Instructions* Letty Shen APRN.MARCELA - 05/28/2022 5:49 PM EST 05/28/22 02/05/22 [...] dizziness, lethargy, signs of dehydration, fever greater [id number] F that is not responding to Tylenol or ibuprofen (Motrin, Advil), drooling, difficulty swallowing, difficulty breathing, shortness of breath, chest pain, evidence of airway compromise (tripod position, neck extension, retractions), seizures, changes in mental status, or other concerns. documented in this encounterHolmes County Joel [facility]01-16-2023 History of Present illness Narrative* Letty Shen APRN.CNP - 05/28/2022 5:40 PM EST This note was created using NoteWriter. Subjective Philly Joel is a 82 year old male. HPI by patient: Philly Joel is a 82 year old presenting [...] earlier but not now. is in the assisted, actively passing. Denies shortness of breath, headache [...] dizziness, lethargy, signs of dehydration, fever greater [id number] F that is not responding to Tylenol [...] summary. The patient is agreeable to this planof care and follow-up instructions have been explained in detail. The patient has received these instructions in written format and have expressed an understanding of the after visit summary. Medical Decision Making: Level: 3 - Low I spent a total of 20 minutes on the date of the service which included preparing to see the patient, [id number] patient care, completing clinical documentation, obtaining and/or reviewing separately obtained history, performing a medically appropriate examination, counseling and educating the pat ient/family/caregiver, and ordering medications, tests, or procedures. documented in this encounterHolmes County Joel [facility]04-18-2021 Hospital Discharge instructions* Instructions* Alex Nair MD - 08/28/2020 Remove packing as I showed how tomorrow morning, recheck with your doctor and return if any worsening problems would occur including recurrent bleeding or any bleeding anyplace else. * Attachments The following attachments cannot be sent through Care Everywhere. * Nosebleeds (Lao) documented in this encounterSUMMA Work Phone: Discharge summary Author Haris Elise [facility] Note Date/Time November 29, 2024 12:3 0am [facility] Medical Records Department [address] [place] [address] Emergency Department Summary 11/29/24 MR#: [id number] Acct: [id number] Name: PHILLY JOEL Rep #:[id number] : 1940 84 From: Haris Elise MD PCP: Dr. Guilherme Fallon MD Status:REG ER Location: ED HPI History of Present Illness Chief Complaint: Other, Pain/Inj Detail of Chief Complaint: sacral wounds Informant: patient Narrative Narrative: 84-year-old male who has been generally weak and after walking presenting to theER around midnight for evaluation of wounds on his buttocks that have been therefor maybe a little over a week according to him. He denies any fevers chills significant discharge or bleeding from them. He was admitted to [facility] for rehab, but he hated it there and signed out [employer] [employer]VICE after 1 day and has a live-in aide at home that has been helping him. He states for the most part, he is lying in bed. He can take some steps with a walker if he has help from his aide. He denies any new symptoms or feeling more poorly than he has in the past week, is just concerned about his sores because they hurt and hehas been doing ointment and dressings on them but they do not seem to be healing. [facility] Medical History Weakness of lower extremity Acute hyponatremia Generalized weakness HTN (hypertension) Home Medications ?Medication ?Instructions ?Recorded ?Last Taken ?Type acetaminophen 325 mg tablet 650 mg (2 x 325 mg) PO Q6H PRN PRN 11/18/24 Unknown Rx Pain 1-10 Or Fever >100.7 #0 tabs cephalexin 500 mg tablet 500 mg PO TID #21 tabs 11/18 Unknown Rx sennosides 8.6 mg-docusate sodium 2 tab PO BID PRN PRN Constipation 11/18/24 Unknown Rx 50 mg tablet (Stimulant Laxative #0 tabs Plus) sodium chloride 1,000 mg soluble 1,000 mg PO TID #0 ta bs 11/18/24 Unknown Rx tablet Allergy/AdvReac Type Severity Reaction Status Date / Time Opioids - Morphine Analogues Allergy Intermediate Other Verified 11/29/24 00:00 Surgical History History of tonsillectomy H/O bilateral hip replacements Social History household members: caregiver housing: house Smoking Status: Former smoker ROS ROS ED Constitutional Constitutional ED: Denies chills or fever(s) Eyes Eyes: Denies change in vision or diplopia ENT ENT ED: Denies rhinorrhea or sore throat Cardiovascular Cardiovascular: Denies chest pain or palpitations Respiratory/Chest Respiratory/Chest: Denies cough or dyspnea Gastrointestinal Gastrointestinal: Denies abdominal pain, diarrhea, nausea or vomiting Genitourinary Genitourinary ED: Denies dysuria or hematuria Musculoskeletal Musculoskeletal: Denies back pain or neck pain Integumentary Reports as per HPI and wounds; Denies abscess or rash Neurologic Neurologic: Denies headache(s), paresthesias or weakness Psychiatric Psychiatric: Denies anxiety or suicidal thoughts EXAM Physical Exam Const Vital Signs: 11/28/24 23:57 11/29/24 00:00 Temperature 99.2 F H 99.2 F H Temperature Source Oral Oral Pulse Rate 76 76 Respiratory Rate 18 18 Blood Pressure 129/65 H 115/69 Blood Pressure Mean 86 84 Pulse Ox 98 98 Oxygen Delivery Method Room Air Room Air Positive well nourished and well developed General Appearance ED: well developed and NAD HEENT Reports moist mucous membranes normocephalic and atraumatic Eyes PERRL and EOMs intact bilaterally Neck full ROM and supple Resp normal respiratory effort GI non-tender and non-distended Auscultation: normoactive bowel sounds Palpation: soft Extremity normal to inspection General Extremety ED: Negative for edema, pulses abnormal or tenderness General Extremity: Negative for edema or pulses abnormal Neuro oriented x3, CN's II-XII intact bilaterally and no sensory deficits noted Sensorium / Orientation: awake and alert Motor Exam: strength 5/5 throughout Skin no rashes or lesions noted Skin Narrative: Patient has 2 small roughly 2 cm each early stage II decubitus ulcers separate from each other in the area of the buttocks, there are some nonblanching erythema but no tenderness away from the ulcerations himself. They do not appear to be infected. There is no midline tenderness. There is no abscess or fullness or fluctuance anywhere and there is no active discharge or bleeding. MDM MDM MDM Narrative Medical decision making narrative: In my judgment these do not appear to be infected. I do not think he needs antibiotics nor does he need testing to search for a deep space tissue involvement. I think he just needs better wound care, as I discussed with the patient they appear to be clean and well cared for, but if he is still putting pressure on them, they are going to take longer to go away and get better. I referred him to the wound center so they can further evaluate but he is here at midnight and there is no one else to see him in the hospital at this time. I amhaving our nurses place some bulky partial pressure relieving dressings on them with some antibiotic ointment he is comfortable with that plan. Discharge Plan Triage Chief Complaint: Other, Pain/Inj ED Provider: Haris Elise Dx/Rx/DC Orders Clinical Impression: Decubitus ulcer of sacral region, stage 2 Instructions: ED Pressure Injury, ED Wound Care Prescriptions: No Action acetaminophen 325 mg Tablet 650 mg PO Q6H PRN PRN (Reason: Pain 1-10 Or Fever >100.7) Qty: 0 0RF sennosides-docusate sodium [Stimulant Laxative Plus] 8.6-50 mg Tablet 2 tab PO BID PRN PRN (Reason: Constipation) Qty: 0 0RF sodium chloride 1,000 mg Tablet,Soluble 1,000 mg PO TID Qty: 0 0RF cephalexin 500 mg tablet 500 mg PO TID Qty: 21 0RF Rx Instructions: 1- 3 times a day for 21 doses-start tonight 11/18/2024 Primary Care Provider: Guilherme Fallon Referrals: Wound Health [Outside] - As soon as possible (call for appt: [phone]) Guilherme Fallon MD [Primary Care Provider] - 1 Week Print Language: Lao Disposition Disposition: Home, Self Care What to do if you have Problems For any increased pain, shortness of breath, bleeding, nausea or vomiting, chestpain, or any unexpected problems, contact your Primary Care Provider. Call [facility] ([phone]) or report to the closest Emergency Room. Call 911 if necessary. 11/29/24 0030 <Electronically signed by Haris Elise MD> Cosigner Signature (if applicable): CC: Dr. Guilherme Fallon MD; Wound Center ~ Signed [facility] Work Phone: Evaluation note* Diagnosis Acute anterior epistaxis- Primary documented in this encounter [facility] Work Phone: Evaluation note* Diagnosis Epistaxis- Primary documented in this encounter [facility] Work Phone: Evaluation note* Diagnosis Injury of left knee, initial encounter documented in this encounter [facility] Work Phone: Evaluation note* Diagnosis Elevated blood pressure reading- Primary Elevated blood pressure reading without diagnosis of hypertension [facility] Diagnosis Primary hypertension- Primary Unspecified essential hypertension Dizziness and giddiness Observed sleep apnea Enlarged and hypertrophic nails Newly recognized murmur [facility] Diagnosis Pain due to onychomycosis of toenails of both feet- Primary Age-related physical debility Enlarged and hypertrophic nails [facility] Diagnosis Primary hypertension- Primary Unspecified essential hypertension Elevated TSH Other abnormal blood chemistry [facility] Diagnosis Primary hypertension- Primary Unspecified essential hypertension Dizziness Dizziness and giddiness [facility] Diagnosis Essential (primary) hypertension- Primary Unspecified essential hypertension [facility] Diagnosis Routine general medical examination at health care facility- Primary Routine general medical examination at a health care facility Primary hypertension Unspecified essential hypertension Elevated PSA Elevated prostate specific antigen (PSA) Vaccine refused by patient [facility] Diagnosis Other specified abnormal findings of blood chemistry- Primary [facility]* Diagnosis Elevated PSA, between 10 and less than 20 ng/ml- Primary [facility] Diagnosis Puncture wound of left index finger- Primary Localized erythema Unspecified erythematous condition Visit for wound check Encounter for other specified aftercare [facility] Diagnosis Bilateral impacted cerumen- Primary Impacted cerumen [facility]* Diagnosis Periprosthetic fracture of proximal end of femur documented in this encounter [facility] Work Phone: Evaluation note* Diagnosis Periprosthetic fracture of proximal end of femur- Primary Periprosthetic fracture of proximal end of femur documented in this encounter [facility] Work Phone: Evaluation note* Diagnosis Periprosthetic fracture of proximal end of femur documented in this encounter [facility] Work Phone: Evaluation note* Diagnosis 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, initial encounter (Multi)- Primary documented in this encounter [facility] Work Phone: Evaluation note* Diagnosis Periprosthetic fracture of proximal end of femur- Primary Periprosthetic fracture of proximal end of femur Closed fracture of left femur, unspecified fracture morphology, unspecified portion of femur, initial encounter Closed fracture of left femur, unspecified fracture morphology, unspecified portion of femur, initial encounter Murmur Undiagnosed cardiac murmurs documented in this encounter [facility] Work Phone: Evaluation note* Diagnosis Onset Date Resolution Status Admit Date Acute hyponatremia acute November 152024 2:42pm Generalized weakness acute November 15, 2024 2:42pm Weakness of lower extremity acute November 15, 2024 2:42pm [facility] Work Phone: History and physical note Author Shannan Patterson [facility] Note Date/Time November 15, 2024 3:03p m [facility] Medical Records Department [address] [place] [address] H&P Exam - Hospitalist 11/15/24 1441 MR#: [id number] Acct: [id number] Name: PHILLY JOEL Rep #:[id number] : 1940 84 From: Shannan Patterson MD PCP: Dr. Guilherme Fallon MD Status:ADM IN Location: U [id number] HPI - General General Date of Admission: 11/15/24 Date of Service: 11/15/24 Chief Complaint: Right leg weakness HPI Narrative PHILLY JOEL, is a 84M with a history of hypertension and left femur break lastMarch requiring surgery at presented [facility] ED 11/15/2024 with weakness. In the ED temp initially appear to be 99.9 but oral tempwas corrected to 98.4, pulse rate 69 with blood pressure 148/67, respiratory rate 16 pulse ox 100% on room air. Patient with normal white blood cell count with a hemoglobin of 12.5 with no previous baseline. BMP with a BUN of 20 and creatinine 0.97 and he was found to have a sodium of 126 with no previous baseline, UA negative for infection. Patient given IV fluids and due to his significant difficulty getting around hospitalist contacted for admission. Patient evaluated bedside. He reports that last he had been out in theheat and he been trying to work out when he suddenly had increased right lower extremity weakness after which he had a fall. At that time he called EMS and they came and got him in his house and recommended going to the ED but he refused. He does report he has chronic left lower extremity weakness but that his right lower extremity used to be his strong extremity until , this is not improved since that time. Does report some back pain though he does havechronic L4-5 pain per patient maybe has been a little bit worse however the weakness he did say began before the fall and not the other way around. He saidsince then he has not really been able to get around so he has not been eating or drinking well and now feels a little bit weak overall. Does get pain into his hips and reports he gets some chronic numbness and tingling in his legs but that that is not new when he thinks he might just need more B12. He reports he has been having some headaches, denies changes in vision, has a chronic phlegmy cough that has not necessarily changed, no chest pain or shortness of breath, denies any focal weakness in any other extremities. Of note patient reports he takes multiple supplements and has been into naturopathic medicine for 40 years and instead of taking an aspirin he takes some kind of tree bark capsule. Afterdiscussing with the patient and clarifying he was reporting focal weakness (he had previously alluded to generalized weakness which was what he was initially going to be admitted for) discussed with ED physician there is concern that he could have had a stroke, CT head ordered in the ED and patient will be admitted to PCU as a stroke rule out [facility] Medical History (Updated 11/15/24 @ 14:[address] Shannan Patterson MD) HTN (hypertension) Allergy/AdvReac Type Severity Reaction Status Date / Time Opioids - Morphine Analogues Allergy Intermediate Other Verified 11/15/24 12:14 Surgical History (Updated 11/15/24 @ 12:16 by Rosemarie James) H/O bilateral hip replacements History of tonsillectomy Social History Smoking Status: Former smoker ROS ROS Narrative General: Denies fever/chills HENT: Has been having some headaches, denies stuffy nose, denies sore throat EYES: Denies changes in vision Resp: Chronic phlegmy cough, denies shortness of breath Cardiac: Denies chest pain GI: Denies abdominal pain, denies changes in bowel, denies nausea/vomiting : Denies changes in urination Extremity: Reports some weakness in both legs but notes left leg is weak at baseline and right leg is weak compared to his previous baseline MSK: Weakness as above, does have some low back pain Neuro: Intermittent chronic numbness and tingling in legs, pain does not shoot down to legs Heme: Has some bruises Skin: Denies rashes Psychiatric: No complaints voiced Vital Signs Vital Signs Vital Signs: 11/15/24 12:06 11/15/24 13:09 11/15/24 13:14 Temperature 99.9 F H 98.4 F Temperature Source Temporal Oral Pulse Rate 69 Respiratory Rate 16 Respiratory Pattern Normal Blood Pressure 148/67 H Blood Pressure Mean 94 Pulse Ox 100 Oxygen Delivery Method Room Air Physical Exam Narrative General: Alert, oriented, no apparent distress HEENT: Atraumatic, normocephalic, seems to be hard of hearing Eyes: Anicteric, normal conjunctiva, extraocular movements grossly intact Neck: Supple Respiratory: Clear to auscultation bilaterally, normal respiratory effort Cardiovascular: Regular rate and rhythm GI: Soft, nontender, nondistended Extremities: Seems to have some trace lower extremity edema Musculoskeletal: Moving both upper extremities, has difficulty moving either lower extremity off the bed but is slightly better able to with the right than left hand when legs are lifted up he is not able to hold the left up at all but is able to hold the right up Neuro: Patient without sustained clonus in ankles, has bilateral patellar reflexes right greater than left Skin: Overall cooperative Psych: Cooperative Results Lab / Micro Data 11/15/24 12:33 11/15/24 12:33 Labs: Laboratory Results - last 24 hr 11/15/24 12:33: WBC 10.5, RBC 4.30 L, Hgb 12.5 L, Hct 38.3 L, MCV 89.1, MCH 29.1, MCHC 32.6, RDW Std Deviation 48.0 H, RDW Coeff of Bud 14.8 H, Plt Count 237, MPV 9.5, Immature Gran % (Auto) 1.300 H, Neut % (Auto) 78.3 H, Lymph % (Auto) 6.4 L, Jerome % (Auto) 13.6 H, Eos % (Auto) 0.2, Baso % (Auto) 0.2, Absolute Neuts (auto) 8.2 H, Absolute Lymphs (auto) 0.67 L, Nucleated RBC % 0, Sodium 126 L, Potassium 4.4, Chloride 92 L, Carbon Dioxide 21.0, Anion Gap 13, BUN 20 H, Creatinine 0.79, Est GFR (MDRD) Non-Af 87, BUN/Creatinine Ratio 25.5 H,Glucose 86, Calcium 8.9 11/15/24 13:42: Urine Color Yellow, Urine Clarity Clear, Urine pH 7.0, Ur Specific Wilton 1.010, Urine Protein 30 H, Urine Glucose (UA) Normal, Urine Ketones Negative, Urine Occult Blood 10 H, Urine Nitrite Negative, Urine Bilirubin Negative, Urine Urobilinogen 4 H, Ur Leukocyte Esterase 25 H, Urine RBC 0 SEEN, Urine WBC 0 SEEN, Ur Squamous Epith Cells 0 SEEN, Urine Bacteria 0 SEEN, Urine Mucus 0 SEEN Assessment & Plan Assessment/Plan (1) Weakness of lower extremity: PLAN: Plan # Lower extremity weakness -Patient reports he has chronic weakness in his left lower extremity and that his right lower extremity previously was strong but now relatively is weak compared to previous and this started suddenly on after which she had afall. On exam patient has much more significant weakness in the left lower extremity compared to right lower extremity -Admit to tele -CT head ordered in ED -MRI ordered along with MRA head and neck once patient refuses any scan requiring contrast -NIH q4hr -asa, statin if patient agreeable to taking -Echo -PT/OT/Speech eval -Teleneuro consult ordered #hyponatremia of unclear chronicity -Sodium 126 with no previous baseline available in our system -Will check TSH, cortisol -Will check serum osmolality and urine studies -Will be given gentle IVF as patient has not been eating or drinking and seems to be somewhat volume depleted -Trend BMP - Also of note patient reports taking multiple natural supplements, unclear if this could be a cause or contributor # Documented history of hypertension -Does not appear to presently be on medications -Will trend BP, may need to add antihypertensive pending trends though unclear if patient would be agreeable # Chronic lower back pain - Patient specifically reports L4-L5 pain since that he has had some increasedpain recently but denies that this was associated with any falls - Back was not tender on palpation at all and he reported actually felt good when palpating the area - Does not have symptoms radiating down legs and has no alarm symptoms - Tylenol as needed and lidocaine patch - PT/OT as above #DVT ppx: Lovenox subcu Shannan Patterson MD Charges/Coding Visit Charges Inpatient E&M: 49047 Init Hosp L2 11/15/24 1503 <Electronically signed by Shannan Patterson MD> Cosigner Signature (if applicable): CC: Dr. Guilherme Fallon MD; Dr. Shannan Patterson MD~ Signed [facility] Work Phone: Hospital Discharge instructions* Attachments The following attachments cannot be sent through Care Everywhere. * Nosebleeds (Lao) documented in this [facility] Work Phone: Reason for referral (narrative)* Consultation (Routine) - Pending Review Specialty Diagnoses / Procedures Referred By Carol t Referred To Contact Urology Diagnoses Elevated PSA, between 10 and less than 20 ng/ml Procedures HI OFFICE/OUTPATIENT NEW HIGH MDM 60-74 MINUTES Guilherme Fallon MD [facility] [address] [place] [address] [facility] [address] [place] [address] Referral ID Status Reason Start Date Expiration Date Visits Requested Visits Authorized [id number] Pending Review Specialty Services Required 12/24/2022 12/24/2023 1 1 [facility]narrative[facility] for [facility] Work Phone: Reason for visit Narrative* Imaging (Routine) - Pending Review Specialty Diagnoses / Procedures Referred By Carol t Referred To Contact Radiology Diagnoses Periprosthetic fracture of proximal end of femur Procedures XR pelvis 1-2 views XR pelvis 1-2 views Katiana Bragg PA-C [address] [facility] [place] [address] Phone: tel: fax: Referral ID Status Reason Start Date Expiration Date Visits Requested Visits Authorized [id number] Pending Review Perform Procedure 04/16/2024 04/16/2025 1 1 [facility] Work Phone: Reason for visit Narrative* Imaging (Routine) - Pending Review Specialty Diagnoses / Procedures Referred By Carol t Referred To Contact Radiology Diagnoses Periprosthetic fracture of proximal end of femur Procedures XR femur left 2+ views XR femur left 2+ views Katiana Bragg PA-C [address] [place] [address] Phone: tel: fax: Referral ID Status Reason Start Date Expiration Date Visits Requested Visits Authorized [id number] Pending Review Perform Procedure 04/16/2024 04/16/2025 1 1 [facility] Work Phone: Summary Purpose Family History No Family History Records FoundNo Family History Records FoundNo Family History Records FoundNo Family History Records FoundNo Family History Records FoundNo Family History Records FoundNo Family History Records FoundNo Family History Records FoundNo Family History Records FoundNo Family History Records FoundNo Family History Records Found Advance Directives Documents on File Type Date Recorded Patient Paper Products Supervisor Expl anation ACP-Advance Directive ACP-Power of Electrical Equipment Assembler Documents on File Type Date Recorded Patient Paper Products Supervisor Expl anation ACP-Advance Directive ACP-Power of Electrical Equipment Assembler Date Activated Date Inactivated Comments 01/30/2024 4:39 [...] Patient condition does not warra nt discussion Advance Directive Response Recorded Date/ Time Do you have a Healthcare Power of Electrical Equipment Assembler? No November 15, 2024 12:14pm Advance Directive Response Recorded Date/ Time Do you have a Healthcare Power of Electrical Equipment Assembler? Yes November 15, 2024 3:30pm Name of Medical Power of Electrical Equipment Assembler Dina Huerta Clement November 15, 2024 3:30pm Advance Directive Response Recorded Date/ Time Do you have a Healthcare Power of Electrical Equipment Assembler? Yes November 15, 2024 3:30pm Name of Medical Power of Electrical Equipment Assembler Dina Huerta Clement November 15, 2024 3:30pm Do you have a Healthcare Power of Electrical Equipment Assembler? No November 29, 2024 12:00am Advance Directive Response Recorded Date/ Time Do you have a Healthcare Power of Electrical Equipment Assembler? Yes November 15, 2024 3:30pm Name of Medical Power of Electrical Equipment Assembler Dina Huerta Clement November 15, 2024 3:30pm Do you have a Healthcare Power of Electrical Equipment Assembler? No November 29, 2024 12:00am Do you have a Healthcare Power of Electrical Equipment Assembler? Yes December 04, 2024 10:56am Reason for Referral Status Reason Specialty Diagnoses / Procedures Referred By Contact Referred To Contact Open Specialty Services Required Orthopedic Surgery Diagnoses Closed fracture of right foot, initial encounter Alex Nair MD [address] [place] [address] [facility] [address] [place] [address] Scheduling Instructions [facility] [place] [address] Specialty Diagnoses / Procedures Referred By Contac t Referred To Contact Cardiology Diagnoses Newly recognized murmur Procedures Transthoracic echocardiogram (TTE) limited with contrast, bubble, strain, and 3D PRN HI ECHO TRANSTHORC R-T 2D W/WO M-MODE REC F-UP/LMTD HI DOP ECHOCARD PULSE WAVE W/SPECTRAL F-UP/LMTD STD HI DOP ECHOCARD COLOR FLOW VELOCITY MAPPING HI 2D TTE W OR W/O FOL W/CON,FU Guilherme Fallon MD [address] [facility] [address] [place] [address] Referral ID Status Reason Start Date Expiration Date Visits Requested Visits Authorized [id number] Pending Review Perform Procedure 08/08/2022 02/04/2023 1 1 Specialty Diagnoses / Procedures Referred By Contac t Referred To Contact Podiatry Diagnoses Enlarged and hypertrophic nails Procedures HI OFFICE/OUTPATIENT NEW HIGH MDM 60-74 MINUTES Guilherme Fallon MD [address] [facility] [address] [place] [address] Matthew Perez PA-C [address] [facility]. [address] [place] [address] Referral ID Status Reason Start Date Expiration Date Visits Requested Visits Authorized [id number] Pending Review Specialty Services Required 08/08/2022 08/08/2023 1 1 Specialty Diagnoses / Procedures Referred By Contac t Referred To Contact Sleep Medicine Diagnoses Primary hypertension Observed sleep apnea Procedures Home sleep test Guilherme Fallon MD [address] [facility] [address] [place] [address] Referral ID Status Reason Start Date Expiration Date V isits Requested Visits Authorized [id number] Pending Review 08/08/2022 02/04/2023 1 1 Specialty Diagnoses / Procedures Referred By Contac t Referred To Contact Radiology Diagnoses Periprosthetic fracture of proximal end of femur Procedures XR femur left 2+ views Katiana Bragg PA-C [address] [address] [place] [address] Department of Orthopedics [place] [id number] Referral ID Status Reason Start Date Expiration Date Visits Requested Visits Authorized [id number] Authorized Perform Procedure 02/18/2024 02/17/2025 1 1 Specialty Diagnoses / Procedures Referred By Contac t Referred To Contact Radiology Diagnoses Periprosthetic fracture of proximal end of femur Procedures XR pelvis 1-2 views Katiana Bragg PA-C [address] [place] [address] Referral ID Status Reason Start Date Expiration Date Visits Requested Visits Authorized [id number] Authorized Perform Procedure 02/18/2024 02/17/2025 1 1 [...] sent through Care Everywhere. * Foot Fracture (Lao) documented in this encounter Assessments Diagnosis Closed fracture of right foot, initial encounter Chief Complaint and Reason for Visit Chief Complaint Admit Date CVA R/O November 15, 2024 2:42p m Reason for Visit Admit Date Acute hyponatremia November 15, 2024 2:42p m Generalized weakness November 15, 2024 2:42 pm Weakness of lower extremity November 15 2:42pm Chief Complaint Admit Date CVA R/O November 15, 2024 2:42p m CVA R/O November 16, 2024 6:47p m CVA R/O November 17, 2024 5:11p m CVA R/O November 18, 2024 3:11p m Chief Complaint Admit Date CVA R/O November 15, 2024 2:42p m CVA R/O November 16, 2024 6:47p m CVA R/O November 17, 2024 5:11p m CVA R/O November 18, 2024 3:11p m pain other November 28, 2024 11:5 6pm Chief Complaint Admit Date CVA R/O November 15, 2024 2:42p m CVA R/O November 16, 2024 6:47p m CVA R/O November 17, 2024 5:11p m CVA R/O November 18, 2024 3:11p m LAB WORK November 19, 2024 5:00 am pain other November 28, 2024 11:5 6pm EGD December 04, 2024 3:09 pm Additional Source Comments (unrecognized sect ion and content) No Status Records FoundNo Status Records FoundNo Status Records FoundNo Status Records FoundNo Status Records FoundNo Status Records FoundNo Status Records FoundNo Status Records FoundNo Status Records FoundNo Status Records FoundNo Status Records Found INFORMATION SOURCE (unrecogn ized section and content) DATE CREATED AUTHOR 12/06/2017 [facility] DATE CREATED AUTHOR AUTHOR'S ORGANIZ ATION 09/09/2020 [facility] DATE CREATED AUTHOR AUTHOR'S ORGANIZ ATION 12/04/2021 [facility] DATE CREATED AUTHOR AUTHOR'S ORGANIZ ATION 01/04/2024 [facility] DATE CREATED AUTHOR AUTHOR'S ORGANIZ ATION 01/29/2024 [facility] DATE CREATED AUTHOR AUTHOR'S ORGANIZ ATION 02/09/2024 [facility] DATE CREATED AUTHOR AUTHOR'S ORGANIZ ATION 02/24/2024 [facility] DATE CREATED AUTHOR AUTHOR'S ORGANIZ ATION 03/06/2024 [facility] DATE CREATED AUTHOR AUTHOR'S ORGANIZ ATION 04/22/2024 [facility] DATE CREATED AUTHOR AUTHOR'S ORGANIZ ATION 12/03/2024 [facility] DATE CREATED AUTHOR AUTHOR'S ORGANIZ ATION 12/04/2024 [facility] Reason for Visit (unrecogniz ed section and content) Reason Comments Foot Pain Reason Comments Epistaxis Reason Comments Epistaxis R nare Reason Comments blood pressure Sxs for high 153/72, and 145/70, was last reading's Reason Comments ER Follow-up Hypertension, dizzin ess, summa Appling, had labs and MRI Reason Comments Foot Problem SCREEN VENT BINDER Hypertrophic nail s Specialty Diagnoses / Procedures Referred By Carol t Referred To Contact Physician Hoop Rolls Operator / Podiatry Diagnoses Enlarged and hypertrophic nails Procedures HI OFFICE/OUTPATIENT NEW HIGH MDM 60-74 MINUTES Guilherme Fallon MD [address] [facility] [address] [place] [address] Matthew Perez PA-C [address] [facility]. [address] [place] [address] Referral ID Status Reason Start Date Expiration Date V isits Requested Visits Authorized [id number] Closed Specialty Services Required 08/08/2022 08/08/2023 1 1 Reason Onset Date Comments Hypertension 08/17/2022 Reason Comments Hypertension Reason Comments Dizziness Experiencing dizzine ss, thinks its the lisinopril, will get dizzy sometimes after eating, went to ER and they could not determine the cause. Also having headaches, front and back, stiffness in neck and shoulders. Reason Comments Medicare Annual Wellness Visit Julee t Reason Onset Date Comments Results 12/24/2022 Reason Onset Date Comments Orders 01/03/2023 Reason Comments Finger Pain L index digit pain x 2 days ; L cheek incision x 1 week Reason Comments Piece of Q-tip in right ear PT was lee fletcher shower and cleaned ears with a q- tip, pt states that a q-tip broke off in right ear, Pt wears hearing aids Reason Onset Date Comments Drooling 01/07/2024 Specialty Diagnoses / Procedures Referred By Carol van Referred To Contact Radiology Diagnoses Periprosthetic fracture of proximal end of femur Procedures XR femur left 2+ views Katiana Bragg PA-C [address] [facility] [place] [address] Referral ID Status Reason Start Date Expiration Date Visits Requested Visits Authorized [id number] Authorized Perform Procedure 02/18/2024 02/17/2025 1 1 Reason Comments Follow-up femur Reason Comments Hip Pain Left hip/leg pain Reason Comments Fall Hip Pain Specialty Diagnoses / Procedures Referred By Carol van Referred To Contact Diagnoses Closed fracture of left femur, unspecified fracture morphology, unspecified portion of femur, initial encounter hip fracture Procedures No [place] [address] [place] [address] [facility] [address] [place] [address] Referral ID Status Reason Start Date Expiration Date Visits Re quested Visits Authorized [id number] 1 1 Reason Onset Date Comments Other 11/20/2024 Requesting in [facility] care Reason Onset Date Comments Orders 11/19/2024 Ordered Prescriptions (unrec ognized section and content) Prescription Sig Dispensed Refills Start Date End Da te amoxicillin (AMOXIL) 500 MG capsule Take 1 capsule by mouth 3 times daily for 7 days 21 capsule 0 09/01/2020 09/08/2020 Care Teams (unrecognized sec tion and content) Planning Consultant Relationship Specialty Start Date End Date Guilherme Fallon MD [address] [place] [address] PCP - General Family Medicine 10/27/21 Planning Consultant Relationship Specialty Start Date End Date Deyanira Graham MD [address] [facility] [address] [place] [address] PCP - General Internal Medicine 12/30/18 Planning Consultant Relationship Specialty Start Date End Date Guilherme Fallon MD [address] [facility] [address] [place] [address] PCP - General 10/27/21 Planning Consultant Relationship Specialty Start Date End Date Guilherme Fallon MD [address] [facility] [address] [place] [address] PCP - General 10/27/21 Planning Consultant Relationship Specialty Start Date End Date Guilherme Fallon MD [address] [facility] [address] [place] [address] PCP - General 10/27/21 Planning Consultant Relationship Specialty Start Date End Date Guilherme Fallon MD [address] [facility] [address] [place] [address] PCP - General 10/27/21 Planning Consultant Relationship Specialty Start Date End Date Guilherme Fallon MD [address] [place] [address] PCP - General 10/27/21 Planning Consultant Relationship Specialty Start Date End Date Guilherme Fallon MD [address] [facility] [address] PCP - General 10/27/21 Planning Consultant Relationship Specialty Start Date End Date Guilherme Fallon MD [address] [place] [address] PCP - General 10/27/21 Planning Consultant Relationship Specialty Start Date End Date Guilherme Fallon MD [address] [place] [address] PCP - General 10/27/21 Planning Consultant Relationship Specialty Start Date End Date Guilherme Fallon MD [address] [place] [address] PCP - General 10/27/21 Planning Consultant Relationship Specialty Start Date End Date Guilherme Fallon MD [address] [place] [address] PCP - General 10/27/21 Planning Consultant Relationship Specialty Start Date End Date Guilherme Fallon MD [address] [place] [address] PCP - General 10/27/21 Planning Consultant Relationship Specialty Start Date End Date Guilherme Fallon MD [address] [place] [address] PCP - General 10/27/21 Planning Consultant Relationship Specialty Start Date End Date Guilherme Fallon [address] [place] [address] PCP - General Family Medicine 02/19/23 Planning Consultant Relationship Specialty Start Date End Date Guilherme Fallon MD [address] [place] [address] [place] [address] PCP - General Family Medicine 02/19/23 Planning Consultant Relationship Specialty Start Date End Date Guilherme Fallon MD [facility] [address] [address] PCP - General 10/27/21 Planning Consultant Relationship Specialty Start Date End Date Generic Provider, [place] [address] PCP - General Store Sales Manager 01/27/24 Planning Consultant Relationship Specialty Start Date End Date Generic Provider, [place] [address] PCP - General Store Sales Manager 01/27/24 Planning Consultant Relationship Specialty Start Date End Date Generic Provider, [place] [address] PCP - General Store Sales Manager 01/27/24 Planning Consultant Relationship Specialty Start Date End Date Generic Provider, [place] [address] PCP - General Store Sales Manager 01/27/24 Team Status: Active Member Role/Relationship Status Dates Dr. Guilherme Fallon MD Primary Care Provider Active Team Status: Active Member Role/Relationship Status Dates Dr. Chetan Mata MD Emergency Provider Active Sta rt: November 15, 2024 Dr. Guilherme Fallon MD Primary Care Provider Active Start: November 15, 2024 Dr. Shannan Patterson MD Admit Provider Active Star t: November 15, 2024 Dr. Shannan Patterson MD Attending Provider Active Start: November 15, 2024 Dr. Shannan Patterson MD Other Provider Active Star t: November 15, 2024 Team Status: Inactive Member Role/Relationship Status Dates Dr. Chetan Mata MD Emergency Provider Active Sta rt: November 15, 2024 End: November 18, 2024 Dr. Guilherme Fallon MD Primary Care Provider Active Start: November 15, 2024 End: November 18, 2024 Dr. Shannan Patterson MD Admit Provider Active Star t: November 15, 2024 End: November 18, 2024 Dr. Shannan Patterson MD Other Provider Active Star t: November 15, 2024 End: November 18, 2024 Dr. Luca Yeh DO Attending Provider Active Start: November 15, 2024 End: November 18, 2024 Team Status: Active Member Role/Relationship Status Dates Dr. Guilherme Fallon MD Primary Care Provider Active Start: November 16, 2024 Dr. Jose Alberto Swann MD Attending Provider Active S tart: November 16, 2024 Team Status: Active Member Role/Relationship Status Dates Dr. Chetan Mata MD Emergency Provider Active Sta rt: November 16, 2024 Dr. Guilherme Fallon MD Primary Care Provider Active Start: November 16, 2024 Dr. Shannan Patterson MD Admit Provider Active Star t: November 16, 2024 Dr. Shannan Patterson MD Other Provider Active Star t: November 16, 2024 Finn El MD Other Provider Active Start: 2024 Dr. Danae Garner MD Other Provider Active Start: November 16, 2024 Lashanda Modi MD Other Provider Active Start : November 16, 2024 Dr. Julisa Umana DO Other Provider Active St art: November 16, 2024 Dr. Jessenia Sepulveda MD Other Provider Active Start: November 16, 2024 Dr. Avinash Del Real MD Other Provider Active Sta rt: November 16, 2024 Dr. Carol Kitchen MD Other Provider Active Start : November 16, 2024 Dr. Jean-Claude Nunez MD Other Provider Active Start: November 16, 2024 Dr. Pierre Bautista MD Other Provider Active Start : November 16, 2024 Dr. Mainor Darnell MD Other Provider Active Sta rt: November 16, 2024 Clementina Marquis MD Other Provider Active Start : November 16, 2024 Dr. Fermin Celaya MD Other Provider Active St art: November 16, 2024 Dr. Micki Gross MD Other Provider Active Start : November 16, 2024 Dr. Bren Forte MD Other Provider Active Sta rt: November 16, 2024 Dr. Philomena Lindsey MD Other Provider Active Start: November 16, 2024 Dr. Sushil Perez MD Other Provider Active St art: November 16, 2024 Dr. Sheri Hopkins MD Other Provider Active Star t: November 16, 2024 Dr. Hua Evans MD Other Provider Active St art: November 16, 2024 Dr. Gita Page MD Other Provider Active Start: November 16, 2024 Carlos A Martinez MD Other Provider Active Start: November 16, 2024 Dr. Luca Yeh DO Attending Provider Active Start: November 16, 2024 Dr. Luca Yeh DO Other Provider Active S tart: November 16, 2024 Team Status: Active Member Role/Relationship Status Dates Dr. Chetan Mata MD Emergency Provider Active Sta rt: November 17, 2024 Dr. Guilherme Fallon MD Primary Care Provider Active Start: November 17, 2024 Dr. Shannan Patterson MD Admit Provider Active Star t: November 17, 2024 Dr. Shannan Patterson MD Other Provider Active Star t: November 17, 2024 Dr. Luca Yeh DO Attending Provider Active Start: November 17, 2024 Dr. Luca Yeh DO Other Provider Active S tart: November 17, 2024 Team Status: Active Member Role/Relationship Status Dates Dr. Chetan Mata MD Emergency Provider Active Sta rt: November 18, 2024 Dr. Guilherme Fallon MD Primary Care Provider Active Start: November 18, 2024 Dr. Shannan Patterson MD Admit Provider Active Star t: November 18, 2024 Dr. Shannan Patterson MD Other Provider Active Star t: November 18, 2024 Dr. Luca Yeh DO Attending Provider Active Start: November 18, 2024 Dr. Luca Yeh DO Other Provider Active S tart: November 18, 2024 Planning Consultant Relationship Specialty Start Date End Date Guilherme Fallon MD [address] [place] [address] PCP - General 10/27/21 Planning Consultant Relationship Specialty Start Date End Date Guilherme Fallon MD [facility] [address] [address] PCP - General 10/27/21 Team Status: Active Member Role/Relationship Status Dates Dr. Guilherme Fallon MD Primary Care Provider Active Start: November 19, 2024 Leidy [place] MD Attending Provider Active Start: November 19, 2024 Team Status: Inactive Member Role/Relationship Status Dates Dr. Guilherme Fallon MD Primary Care Provider Active Start: November 28, 2024 End: November 29, 2024 Dr. Haris Elise MD Emergency Provider Active Start: November 28, 2024 End: November 29, 2024 Team Status: Active Member Role/Relationship Status Dates Dr. Ciro Ku MD Primary Care Provider Active Team Status: Inactive Member Role/Relationship Status Dates Dr. Guilherme Fallon MD Primary Care Provider Active Start: November 28, 2024 End: November 29, 2024 Dr. Haris Elise MD Attending Provider Active Start: November 28, 2024 End: November 29, 2024 Dr. Haris Elise MD Emergency Provider Active Start: November 28, 2024 End: November 29, 2024 Team Status: Active Member Role/Relationship Status Dates Dr. Ravinder Richard DO Emergency Provider Active Start: December 04, 2024 Dr. Ciro Ku MD Primary Care Provider Active Start: December 04, 2024 Dr. Randall Ferris DO Attending Provider Active Start: December 04, 2024 Source Comments (unrecognize d section and content) In the event this informatio n is protected by the Federal Confidentiality of Alcohol and Drug Abuse Patient Records regulations: The Federal rules restrict any use of the information to criminally investigate or prosecute any alcohol or drug abuse patient.[facility] the event this information is protected by the Federal Confidentiality of Alcohol and Drug Abuse Patient Records regulations: The Federal rules restrict any use of the information to criminally investigate or prosecute any alcohol or drug abuse patient.[facility] the event this information is protected by the [facility] Confidentiality of Alcohol and Drug Abuse Patient Records regulations: The Federal rules restrict any use of the information to criminally investigate or prosecute any alcohol or drug abuse patient.[facility] Scheduled Active and Recently Administ ered [...] Josefina Telles RN)0927 (Given - Provider: Sherrell Topete RN)1646 (Given - Provider: Johanna Hanks RN) 0134 (Given - Provider: Nunu Soto RN)1001 (Given - Provider: Lucy Mckeon RN)1841 (Given - Provider: Beth Page RN) 0131 (Given - Provider: Nati Sigala RN)0824 (Given - Provider: Lcuy Mckeon RN)1730 (Due - Provider: Yolanda Laws, PharmD) bisacodyl (Dulcolax) suppository 10 mg 10 mg, [...] RN) 100 (Given - Provider: Lucy Mckeon RN)2135 (Given - Provider: Nati Sigala RN) 08 (Given - Provider: Lucy Mckeon RN)2100 (Due [...] RN)2012 (Given - Provider: Johanna Hanks RN) 100 (Given - Provider: Lucy Mckeon [...] via IV Push, administer over 3-5 minutes. Goals (unrecognized section and content) Goals may be documented in a n alternate section FOR RECORDS PERTAINING TO PATIENTS WHO ARE [...] BE BASED ON THE PRIMARY CLINICAL RECORDS. [employer] [facility]. provides no warranty or guarantee of the accuracy or completeness of information in this document.
[2024-12-04 21:33] LABS: Hematocrit 29.9 % (40-54); Hemoglobin 10.1 g/dL (13.0-16.5)
[2024-12-05] VITALS (16 sets, daily range): BP systolic 81–125; BP diastolic 51–68; PULSE 55–86; RESP 12–23; TEMP 36.3–37.1; O2SAT 96–100; BMI 27.6
[2024-12-05 00:26] LABS: Hematocrit 33.2 % (40-54); Hemoglobin 11.1 g/dL (13.0-16.5)
[2024-12-05 04:38] LABS: Hematocrit 32.1 % (40-54); Hemoglobin 10.8 g/dL (13.0-16.5); Immature Granulocytes Count 0.070 X10^3/uL (0.0-0.0); Mean Corp Hgb Conc 33.6 g/dL (32-36); Mean Corpuscular Volume 84.5 fL (80-94); Mean Platelet Vol. 8.7 fl (6.2-12.0); NRBC Flagged by Analyzer 0 % (0-5); POSITIVE DIFFERENTIAL YES; POSITIVE MORPHOLOGY YES; Platelet Count 262 K/mm3 (150-450); RBC Distribution Width CV 14.5 % (11.6-14.6); RBC Distribution Width SD 44.7 fl (35.1-43.9); Red Blood Count 3.80 M/mm3 (4.6-6.2); White Blood Count 10.1 K/mm3 (4.4-11.0)
[2024-12-05 04:41] LABS: Differential Indicated SCAN CRITERIA MET
[2024-12-05 06:13] LABS: Anion Gap 9 (5-15); BUN 20 mg/dL (4-19); BUN/Creat Ratio 29.3 RATIO (10-20); Calcium,Total 8.3 mg/dL (7.6-11.0); Carbon Dioxide 24.5 mmol/L (21.0-32.0); Chloride 101 mmol/L (98-108); Estimated Creatinine Clearance 78.49 ml/min (50-250); Glucose 119 mg/dL (70-99); Potassium 4.2 mmol/L (3.3-5.1)
[2024-12-05 06:21] LABS: Differential Comment SCANNED
--- OUTSIDE RECORDS SUMMARY | 2024-12-05 07:25 | XMS RPT_ITS | CCD ---
Author Organization [facility] Team Providers Care Truck Technician Name Role Phone WEINER, KANU A Unavailable Unavailable WEINER, KANU A Unavailable Unavailable WEINER, KANU A Unavailable Unavailable WEINER, KANU A Unavailable Unavailable WEINER, KANU A Unavailable Unavailable WEINER, KANU A Unavailable Unavailable Viky Fong Primary Care Provider Viky Fong MD Primary Care Provider Guilherme Fallon MD Primary Care Provider Deyanira Graham MD Primary Care Provider Guilherme Fallon MD Primary Care Provider Guilherme Fallon MD Primary Care Provider Guilherme Fallon Primary Care Provider Guilherme Fallon MD Primary Care Provider [phone] GUILHERME FALLON Primary Care Unavailable DEYANIRA GRAHAM Primary Care Unavailable Guilherme Fallon MD Primary Care Provider DEZ HOOVER [...] Unavailluis Mata MD, Dr. Benton Emergency Provider Bishop THORNTON, Dr. Vanegas Primary Care Provider Leonardo THORNTON, Dr. Campbell Admit Provider Leonardo THORTNON, Dr. Campbell Attending Provider Leonardo THORNTON, Dr. Campbell Other Provider Dr. Luca Yeh DO Attending Provider Shree THORNTON, Dr. Abrams Attending Provider Sienna THORNTON, Finn Other Provider Unavailable Pascual THORNTON, Dr. Fink Other Provider Rian THORNTON, Lashanda Other Provider Unavailable Dr. Julisa Umana DO Other Provider Derick THORNTON, Dr. Ruelas Other Provider [phone] Nasima THORNTON, Dr. Da Silva Other [...] Unavailable Dr. Luca Yeh DO Other Provider Leidy Valadez MD Attending Provider Unavailchance Elise [...] Provider Dr. Ravinder Richard DO Emergency Provider [phone] Dr. Ciro Ku MD Primary Care Provider [phone] Dr. Randall Ferris DO Attending Provider Allergies Allergy Classification Reported Allergen(s) Allergy Type Date of Onset Reaction(s) Facility Opioid Agonists (2 sources) Morphine Drug Allergy 0 [facility] (20 sources) morphine; Translations: [MORPHINE] Drug Allergy 3 Itching, Other: See Comments, Anaphylaxis, Rash [facility] Other [facility] (10 sources) Codeine; Translations: [CODEINE] Drug Allergy 4 Anaphylaxis [facility] Repository (4 sources) Opioids - Morphine Analogues Allergy to substance 5 Other [facility] Comment on above: VIOLENT SHAKES (1 source) Opioids - Morphine Analogues Drug allergy (disorder) 5 [facility] Repository Medications Current Medications Medication Drug Class(es) [...] Comment on above: Take 1 capsule by [facility] daily for 5 days. cholecalciferol, vitamin D3, (VITAMIN D3 ORAL) (2 sources) cholecalciferol, vitamin D3, (VITAMIN D3 ORAL) Take by mouth. Active cholecalciferol, vitamin D3, (VITAMIN D3 ORAL) Take by mouth. 0 Active Comment on above: Take by mouth. docusate sodium 50 mg / sennosides, shelter 8.6 mg oral tablet (3 sources) Start: [...] 1105, For 1 dose polyethylene glycol 3350 10029 mg powder for oral solution (7 sources) [...] PO) Take by mouth 0 Active sennosides, shelter 8.6 mg oral tablet (6 sources) Start: [...] sources) A week after discharge from the correction, you will need to be set up with an appointment to see a TAVR physician regarding your aortic stenosis Unclassified (2 sources) call for appt: [phone] Past or Other Problems Problem Classification Problem [...] (Unsp spec) [#/Vol] 0.50 10*3/uL Low 0.83-4.51 [facility] Absolute neutrophil countOrd ered By: Ravinder Richard on 12-04-2024 Neutrophils (Bld) [#/Vol] 5.0 10*3/uL 2.0-7.7 [facility] Amorphous sediment detection in urine sediment by light microscopyOrdered By: Ravinder Richard on 12-04-2024 Amorphous sediment LM Ql (Urine sed) 1+ [facility] Anion gap in Serum or Plasma Ordered By: Ravinder Richard on 12-04-2024 Anion gap [Moles/Vol] 8 mmol/L 5-15 [facility] Automated lymphocyte count a s percentage of total leukocytesOrdered By: Ravinder Richard on 12-04-2024 Lymphocytes/100 WBC Auto (Unsp spec) 7.2 % Low 19-41 [facility] BUN/creatinine ratioOrdered By: Ravinder Richard on 12-04-2024 Urea nitrogen/Creatinine [Mass ratio] 25.5 mg/mg High 10-20 [facility] Basophil percentageOrdered B y: Ravinder Richard on 12-04-2024 Basophils/100 WBC (Bld) 0.7 % 0-1 [facility] Bilirubin Test strip Ql (U)O rdered By: Ravinder Richard on 12-04-2024 Bilirubin Ql (U) Negative Negative [facility] Bilirubin, totalOrdered By: Ravinder Richard on 12-04-2024 Bilirubin [Mass/Vol] 0.59 mg/dL 0.00-1.30 [facility] Carbon dioxide, total [Moles /volume] in Central venous bloodOrdered By: Ravinder Richard on 12-04-2024 CO2 [Moles/Vol] 27.8 mmol/L 21.0-32.0 [facility] Chloride assayOrdered By: Naresh Richard on 12-04-2024 Chloride [Moles/Vol] 92 mmol/L Low 98-108 [facility] Eosinophil percentageOrdered By: Ravinder Richard on 12-04-2024 Eosinophils/100 WBC (Bld) 2.3 % 0-5 [facility] Erythrocyte distribution wid th ratioOrdered By: Ravinder Richard on 12-04-2024 Erythrocyte distribution width (RBC) [Ratio] 14.4 % 11.6-14.6 [facility] Erythrocyte distribution wid th standard deviationOrdered By: Ravinder Richard on 12-04-2024 Erythrocyte distribution width (RBC) [Ratio] 44.6 fl High 35.1-43.9 [facility] Glomerular filtration rate ( GFR) estimation/1.73 sq m using serum, plasma, or whole bOrdered By: Ravinder Richard on 12-04-2024 GFR/1.73 sq M.predicted among non-blacks MDRD (S/P/Bld) [Vol rate/Area] 90 mL/min/{1.73_m2} >60 [facility] Comment on above: mL/min/1.73m2 CKD-EP I Creatinine Equation (2020) Hematocrit Auto (Bld) [Volum e fraction]Ordered By: Ravinder Richard on 12-04-2024 Hematocrit (Bld) [Volume fraction] 26.9 % Low 40-54 [facility] Hemoglobin measurementOrdere d By: Ravinder Richard on 12-04-2024 Hemoglobin (Bld) [Mass/Vol] 8.9 g/dL Low 13.0-16.5 [facility] Immature granulocytes/100 WB C Auto (Bld)Ordered By: Ravinder Richard 12-04-2024 Immature granulocytes/100 WBC (Bld) 0.600 % 0.0-0.9 [facility] Comment on above: IG% - Immature Granu locytes (promyelocytes, myelocytes and metamyelocytes) > 1% indicates that a LEFT SHIFT is Present. Ketones Test strip Ql (U)Ord ered By: Ravinder Richard on 12-04-2024 Ketones Ql (U) Negative Negative [facility] Laboratory - Chemistry and C hemistry - challengeOrdered By: Ravinder Richard on 12-04-2024 AST [Catalytic activity/Vol] 134 U/L High <38 [facility] MCV (mean corpuscular volume ) determinationOrdered By: Ravinder Richard 12-04-2024 MCV (RBC) [Entitic vol] 84.9 fL 80-94 [facility] Mean corpuscular hemoglobin (MCH) determinationOrdered By: Ravinder Richard on 12-04-2024 MCH (RBC) [Entitic mass] 28.1 pg 27.0-32.0 [facility] Mean corpuscular hemoglobin concentration (MCHC) determinationOrdered By: Ravinder Richard on 12-04-2024 MCHC (RBC) [Mass/Vol] 33.1 g/dL 32-36 [facility] Mean platelet volume determi nationOrdered By: Ravinder Richard on 12-04-2024 Platelet mean volume (Bld) [Entitic vol] 8.6 fL 6.2-12.0 [facility] Microscopic analysis of urin e for red blood cells (RBC)Ordered By: Ravinder Richard on 12-04-2024 Microscopic analysis of urine for red blood cells (RBC) 0 SEEN /hpf 0-5 [facility] Monocyte percentageOrdered B y: Ravinder Richard on 12-04-2024 Monocytes/100 WBC (Bld) 17.9 % High 0-10 [facility] Mucus LM Ql (Urine sed)Order ed By: Ravinder Richard on 12-04-2024 Mucus Ql (Urine sed) 0 SEEN /hpf [facility] Neutrophil percentageOrdered By: Ravinder Richard on 12-04-2024 Neutrophils/100 WBC (Bld) 71.3 % High 47-70 [facility] Nitrite Test strip Ql (U)Ord ered By: Ravinder Richard on 12-04-2024 Nitrite Ql (U) Negative Negative [facility] Nucleated red blood cell per centageOrdered By: Ravinder Richard on 12-04-2024 Nucleated RBC/100 WBC (Bld) [Ratio] 0 % 0-5 [facility] Platelet countOrdered By: Naresh Richard on 12-04-2024 Platelets (Bld) [#/Vol] 305 10*3/uL 150-450 [facility] Potassium measurement (mass/ volume)Ordered By: Ravinder Richard on 12-04-2024 Potassium (Unsp spec) [Mass/Vol] 3.6 mmol/L 3.3-5.1 [facility] Protein Test strip Ql (U)Ord ered By: Ravinder Richard on 12-04-2024 Protein Ql (U) 30 mg/dl High Negative [facility] RBC Auto (Bld) [#/Vol]Ordere d By: Ravinder Richard on 12-04-2024 RBC (Bld) [#/Vol] 3.17 10*6/uL Low 4.6-6.2 [facility] Serum creatinine measurement (mass/volume)Ordered By: Ravinder Richard on 12-04-2024 Creatinine [Mass/Vol] 0.70 mg/dL 0.70-1.20 [facility] Serum globulin measurementOr dered By: Ravinder Richard on 12-04-2024 Globulin (S) [Mass/Vol] 3.1 g/dL 2.2-4.2 [facility] Serum glucose measurement (m ass/volume)Ordered By: Ravinder Richard on 12-04-2024 Glucose [Mass/Vol] 118 mg/dL High 70-99 [facility] Serum or plasma alanine berry otransferase (ALT) measurementOrdered By: Ravinder Richard on 12-04-2024 ALT [Catalytic activity/Vol] 77 U/L High <47 [facility] Serum or plasma albumin maikel urement (mass/volume)Ordered By: Ravinder Richard on 12-04-2024 Albumin [Mass/Vol] 2.2 g/dL Low 3.4-4.8 [facility] Serum or plasma albumin/glob ulin mass ratioOrdered By: Ravinder Richard on 12-04-2024 Albumin/Globulin [Mass ratio] 0.7 {ratio} Low 0.9-2.4 [facility] Serum or plasma alkaline robert sphatase measurementOrdered By: Ravinder Richard on 12-04-2024 ALP [Catalytic activity/Vol] 135 U/L High 40-129 [facility] Serum or plasma calcium maikel urement (mass/volume)Ordered By: Ravinder Richard on 12-04-2024 Calcium [Mass/Vol] 8.3 mg/dL 7.6-11.0 [facility] Serum or plasma urea nitroge n measurement (mass/volume)Ordered By: Ravinder Richard on 12-04-2024 Urea nitrogen [Mass/Vol] 18 mg/dL 4-19 [facility] Sodium levelOrdered By: Clayton Richard on 12-04-2024 Sodium [Moles/Vol] 128 mmol/L Low 133-145 [facility] Squamous epithelial cells de tection in urine sediment by light microscopyOrdered By: Ravinder Richard on 12-04-2024 Epithelial cells.squamous LM Ql (Urine sed) 0 SEEN /hpf 0-5 [facility] Stool gastrointestinal hemog lobin detection by immunologic methodOrdered By: Ravinder Richard on 12-04-2024 Lower GI hemoglobin IA Ql (Stl) Positive Abnormal [facility] Total proteinOrdered By: Ashley Richard on 12-04-2024 Protein [Mass/Vol] 5.3 g/dL Low 5.9-8.4 [facility] Urine clarityOrdered By: Ashley Richard on 12-04-2024 Clarity (U) Sl. Cloudy Clear [facility] Urine color determinationOrd ered By: Ravinder Richard on 12-04-2024 Color (U) Yellow Yellow [facility] Urine glucose detectionOrder ed By: Ravinder Ricahrd on 12-04-2024 Glucose Ql (U) Normal mg/dl Normal [facility] Urine leukocyte esterase det ection by dipstickOrdered By: Ravinder Richard on 12-04-2024 Leukocyte esterase Test strip Ql (U) Negative Negative [facility] Urine pHOrdered By: Ravinder khan on 12-04-2024 pH (U) 7.0 [pH] 5.0 - 8.0 [facility] Urine sediment bacteria coun t by microscopy (number/high power field)Ordered By: Ravinder Richard on 12-04-2024 Bacteria LM.HPF (Urine sed) [#/Area] 0 /[HPF] None Seen [facility] Urine specific gravity measu rementOrdered By: Ravinder Richard on 12-04-2024 Specific gravity (U) [Rel density] 1.010 1.002-1.03 0 [facility] Urine urobilinogen measureme ntOrdered By: Ravinder Richard on 12-04-2024 Urobilinogen Ql (U) 8 mg/dl High Normal [facility] White blood cell (WBC) count Ordered By: Ravinder Richard on 12-04-2024 WBC (Bld) [#/Vol] 6.9 10*3/uL 4.4-11.0 [facility] White blood cell countOrdere d By: Ravinder Richard on 12-04-2024 White blood cell count 0 SEEN /hpf 0-5 [facility] 36on 12-03-2024 36 Spoke with Rae lewis her with the resources listed in the message. She has reached out to some of the options but seems to be running up against road blocks. She will continue to make calls tomorrow. She had a question about transportation-SW suggested that she call the insurance company to find out about resources. [facility] 36 Thank you for the information as [...] by the caregiver at that time. Normal [facility] 36 Message released to patient as written. Tried to return call, voicemail full. Patients insurance is not accepted for [facility] calls Program. Patient's further questions if applicable: [...] relayed to the patient from encounter: Yes [facility] 36on 12-02-2024 36 Dina patients joeyi alex was in office today and I tried to help with information and resources I had available. Encounter was entered today. Please also see other encounter. Thanks. Normal [facility] 36 Dina Haynes [phone] patients caregiver came into the office today [...] not be [facility]. Not sure if he [...] other community house call providers and the [facility]. Patient currenly residing in [place], [place]. Please advise with any resources or assistance that might be available. Thanks. [facility] 36 Tried to return call , voicemail full. Patients insurance is not accepted for [facility] calls [facility]. [facility] 36on 12-01-2024 36 Name of caller: Dina Contact phone number: [phone] Relationship to Patient: Provider: Practice: [facility] Yonny Chief Complaint/Reason for Call: Dina called and stated that she was to drop off paperwork today by 4:30 at the [place] location. She stated she was on her way but caught in slow traffic. She stated she wouldn't make it there by 04:30pm. She stated that she will try again tomorrow Best time of day caller can be reached: Patient advised that office/PCP has 24-48 business hours to return their call: [facility] 36 Name of caller: Dina Haynes Contact phone number: [phone] Relationship to Patient: caregiver Provider: Dr. Cao Practice: [facility] Chief Complaint/Reason for Call: Caller stated she [...] business hours to return their call: Yes [place] [address] Name of caller: Dina Contact phone number: [phone] Relationship to Patient: family member patient and [...] business hours to return their call: Yes [place] [address] Spoke to Dina and re lease message [...] Otherwise he would need to come in. [facility] 36 I spoke to patients and released message Dina is very frustrated and does not know what to do. She states when they took patient to the ED it took them hours with help of some one else to get patient in and out of the car. Dina states 'Is he being neglected because he left [place] at [place]?'. She states 'She does not understand why the Hospital gave him the orders and his pcp cannot'. [place] [address] That is not a servic e that I provide. He would need to be switching to a provider that does home visits if that is the case. I also have not seen him in several years so do need a visit really to advise more on this. If he is unable to come in I don't have anything to recommend beyond that. [place] [address] Name of caller: Dina Contact phone number: [phone] Relationship to Patient: Caregiver Provider: Dr Fallon [...] hours to return their call: No Normal [facility] Emergency Department Summary on 11-29-2024 Emergency Department Summary [facility] Medical Records Department [address] [place] [address] Emergency Department Summary 11/29/24 MR#: [id number] Acct: [id number] Name: PHILLY JOEL Rep #: [id number] : 1940 84 From: Haris Elise MD [...] bleeding from them. He was admitted to [place] for rehab, but he hated it there [...] they do not seem to be healing. [facility] Medical History Weakness of lower extremity Acute [...] wound care, as (more content not included)... [facility] 11-25-2024 36 [facility] calling to [facility]. No answer. Vmbox is full Sent [employer] message. [facility] 36 He will need a face to face visit for the authorization of more at home services so would need an appointment. [facility] 11-24-2024 36 Name of caller: dina Contact phone number: [phone] Relationship to Patient: caregiver Provider: Practice: [facility] Chief Complaint/Reason for Call: Dina calling with phone number to [facility] for the auth for in home health care that was authorized by office. Dina states has fax of [phone]. Dina says their phone is [phone]. Dina is requesting authorization be faxed to [facility].Please advise. Best time of day caller can be reached: AM Patient advised that office/PCP has 24-48 business hours to return their call: N/A [facility] 11-23-2024 36 He has home care I a m not sure what status they are referring to. Still would be best to contact APS for follow up to make sure nothing else is needed on their end and any concerns they may have. [facility] 36 Name of caller: Dina Ivy Contact phone number: [phone] Relationship to Patient: Caregiver Provider: Dr. Fallon [...] business hours to return their call: Yes [facility] 36 Noted. Can we follow up with APS and see what came of their visit and if they have concerns? [facility] 36on 11-20-2024 36 Message released to patient [...] relayed to the patient from encounter: Yes [facility] 36 I am not sure at thi [...] the end of the day if possible. [facility] 36 Name of caller: Amalia pedraza Contact phone number: [phone] Relationship to Patient: [facility] Provider: Dr. Fallon Practice: [facility] [...] business hours to return their call: No [place] [address] Spoke with APS kevin roach details of the concern, signed out AMA after stroke rule out, unable to care for self at home, sitting in urine and feces. Contact info provided. 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 B: pt was in [facility] but signed himself out AMA yesterday [...] Protocols used: Information Only Call - No [id number] [place] [address] Multiple encounters for this. Closing this one. [place] [address] Please contact APS a nd inform them of the situation and the urgency - It does not sound like he is able to care for himself nor is he mentally capable, though I have not evaluated him myself. He signed himself out AMA yesterday from the assisted. 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 B: pt was in [facility] but signed himself out AMA yesterday [...] Protocols used: Information Only Call - No [id number] [facility] 36 Name of caller: Dina Contact phone number: [phone] Relationship to Patient: [facility] Provider: Practice: [facility] Chief [...] business hours to return their call: Yes [facility] 36on 11-19-2024 36 Name of caller: Dina Contact phone number: [phone] Relationship to Patient: [facility] Provider: Practice: [facility] Chief Complaint/Reason for Call: Dina needs verbal order that provider will follow patient for home care orders. Please advise Dina and leave voicemail on secure line. Best time of day caller can be reached: any Patient advised that office/PCP has 24-48 business hours to return their call: Yes [facility] Absolute lymphocyte countOrd ered By: Leidy Valadez on 11-19-2024 Lymphocytes Auto (Unsp spec) [#/Vol] 0.78 10*3/uL Low 0.83-4.51 [facility] Absolute neutrophil countOrd ered By: Leidy Valadez on 11-19-2024 Neutrophils (Bld) [#/Vol] 12.7 10*3/uL High 2.0-7.7 [facility] Anion gap in Serum or Plasma Ordered By: Leidy Valadez on 11-19-2024 Anion gap [Moles/Vol] 8 mmol/L 5-15 [facility] Automated lymphocyte count a s percentage of total leukocytesOrdered By: Leidy Valadez on 11-19-2024 Lymphocytes/100 WBC Auto (Unsp spec) 5.2 % Low 19-41 [facility] BUN/creatinine ratioOrdered By: Ednadallassky Valadez on 11-19-2024 Urea nitrogen/Creatinine [Mass ratio] 24.1 mg/mg High 10-20 [facility] Basophil percentageOrdered B y: Leidy Valadez on 11-19-2024 Basophils/100 WBC (Bld) 0.3 % 0-1 [facility] Bilirubin, totalOrdered By: jerrydallassky Valadez on 11-19-2024 Bilirubin [Mass/Vol] 0.70 mg/dL 0.00-1.30 [facility] Carbon dioxide, total [Moles /volume] in Central venous bloodOrdered By: [facility] Nachoanthony on 11-19-2024 CO2 [Moles/Vol] 23.7 mmol/L 21.0-32.0 [facility] Chloride assayOrdered By: apryl Valadez on 11-19-2024 [...] S Vancomycin Islt BERENICE 0.5 S Normal [facility] Comment on above: Performed By: #### L 500.2500, L300.3900, L501.5200, L500.4100, L100.0100 #### [facility] [address] [place], [address] Eosinophil percentageOrdered By: [facility] Valadez on 11-19-2024 Eosinophils/100 WBC (Bld) 0.9 % 0-5 [facility] Erythrocyte distribution wid th ratioOrdered By: [facility] Valadez on 11-19-2024 Erythrocyte distribution width (RBC) [Ratio] 14.4 % 11.6-14.6 [facility] Erythrocyte distribution wid th standard deviationOrdered By: jerrydallassky Valadez on 11-19-2024 Erythrocyte distribution width (RBC) [Ratio] 45.3 fl High 35.1-43.9 [facility] Glomerular filtration rate ( GFR) estimation/1.73 sq m using serum, plasma, or whole bOrdered By: jerrydallassky Valadez on 11-19-2024 GFR/1.73 sq M.predicted among non-blacks MDRD (S/P/Bld) [Vol rate/Area] 93 mL/min/{1.73_m2} >60 [facility] Comment on above: mL/min/1.73m2 CKD-EP I Creatinine Equation (2020) Hematocrit Auto (Bld) [Volum e fraction]Ordered By: [facility] Valadez on 11-19-2024 Hematocrit (Bld) [Volume fraction] 35.0 % Low 40-54 [facility] Hemoglobin measurementOrdere d By: Leidy Valadez 11-19-2024 Hemoglobin (Bld) [Mass/Vol] 11.8 g/dL Low 13.0-16.5 [facility] Immature granulocytes/100 WB C Auto (Bld)Ordered By: Leidy Valadez on 11-19-2024 Immature granulocytes/100 WBC (Bld) 0.900 % 0.0-0.9 [facility] Comment on above: IG% - Immature Granu locytes (promyelocytes, myelocytes and metamyelocytes) > 1% indicates that a LEFT SHIFT is Present. Laboratory - Chemistry and C hemistry - challengeOrdered By: Leidy Valadez on 11-19-2024 AST [Catalytic activity/Vol] 103 U/L High <38 [facility] MCV (mean corpuscular volume ) determinationOrdered By: Leidy Valadez on 11-19-2024 MCV (RBC) [Entitic vol] 85.6 fL 80-94 [facility] Mean corpuscular hemoglobin (MCH) determinationOrdered By: Romejerryrobertosky Griffithkathrynralf on 11-19-2024 MCH (RBC) [Entitic mass] 28.9 pg 27.0-32.0 [facility] Mean corpuscular hemoglobin concentration (MCHC) determinationOrdered By: Leidy Griffithkathrynralf on 11-19-2024 MCHC (RBC) [Mass/Vol] 33.7 g/dL 32-36 [facility] [place] Mean platelet volume determi nationOrdered By: Leidy Griffithkathrynralf on 11-19-2024 Platelet mean volume (Bld) [Entitic vol] 9.3 fL 6.2-12.0 [facility] Monocyte percentageOrdered B y: Leidy Valadez on 11-19-2024 Monocytes/100 WBC (Bld) 7.8 % 0-10 [facility] Neutrophil percentageOrdered By: Leidy Griffithkathrynralf on 11-19-2024 Neutrophils/100 WBC (Bld) 84.9 % High 47-70 [facility] Nucleated red blood cell per centageOrdered By: Leidy Griffithkathrynralf on 11-19-2024 Nucleated RBC/100 WBC (Bld) [Ratio] 0 % 0-5 [facility] Platelet countOrdered By: Rome xusky Valadez on 11-19-2024 Platelets (Bld) [#/Vol] 387 10*3/uL 150-450 [facility] Potassium measurement (mass/ volume)Ordered By: Leidy Valadez on 11-19-2024 Potassium (Unsp spec) [Mass/Vol] 4.7 mmol/L 3.3-5.1 [facility] RBC Auto (Bld) [#/Vol]Ordere d By: Leidy Valadez on 11-19-2024 RBC (Bld) [#/Vol] 4.09 10*6/uL Low 4.6-6.2 [facility] Serum creatinine measurement (mass/volume)Ordered By: Leidy Valadez on 11-19-2024 Creatinine [Mass/Vol] 0.63 mg/dL Low 0.70-1.20 [facility] Serum globulin measurementOr dered By: Leidy Valadez on 11-19-2024 Globulin (S) [Mass/Vol] 3.2 g/dL 2.2-4.2 [facility] Serum glucose measurement (m ass/volume)Ordered By: Leidy Valadez on 11-19-2024 Glucose [Mass/Vol] 111 mg/dL High 70-99 [facility] Serum or plasma alanine berry otransferase (ALT) measurementOrdered By: Leidy Valadez on 11-19-2024 ALT [Catalytic activity/Vol] 112 U/L High <47 [facility] Serum or plasma albumin maikel urement (mass/volume)Ordered By: Leidy Valadez on 11-19-2024 Albumin [Mass/Vol] 2.8 g/dL Low 3.4-4.8 [facility] Serum or plasma albumin/glob ulin mass ratioOrdered By: Leidy Valadez on 11-19-2024 Albumin/Globulin [Mass ratio] 0.9 {ratio} 0.9-2.4 [facility] Serum or plasma alkaline robert sphatase measurementOrdered By: Leidy Valadez 11-19-2024 ALP [Catalytic activity/Vol] 174 U/L High 40-129 [facility] Serum or plasma calcium maikel urement (mass/volume)Ordered By: Leidy Valadez 11-19-2024 Calcium [Mass/Vol] 8.3 mg/dL 7.6-11.0 [facility] Serum or plasma urea nitroge n measurement (mass/volume)Ordered By: Leidy Valadez on 11-19-2024 Urea nitrogen [Mass/Vol] 15 mg/dL 4-19 [facility] Sodium levelOrdered By: Edna Valadez on 11-19-2024 Sodium [Moles/Vol] 125 mmol/L Low 133-145 [facility] Total proteinOrdered By: Yohannes Valadez on 11-19-2024 Protein [Mass/Vol] 6.0 g/dL 5.9-8.4 [facility] White blood cell (WBC) count Ordered By: Ednanavi Terriralf on 11-19-2024 WBC (Bld) [#/Vol] 14.9 10*3/uL High 4.4-11.0 [facility] Abdomen/Pelvis W IV Cont ONL Yon 11-18-2024 Abdomen/Pelvis W IV Cont ONLY [facility] Imaging Services [address] [place] [address] Abdomen/Pelvis W IV Cont ONLY MR#: [id number] Acct: [id number] Name: PHILLY JOEL Rep #: [id number] : 1940 M 84 From: Luca Albarran MD PCP: Dr. Guilherme Fallon MD Status: ADM IN Study: Abdomen/Pelvis W IV Cont ONLY Date of Exam: Exam# [id number] Ordering Dr: Luca Yeh DO EXAM: CT [...] cm simple right renal cyst. Reading Location: [facility] CC: Dr. Guilherme Fallon MD; Dr. Luca Yeh DO Chief Deputy: Signed Normal [facility] Absolute lymphocyte countOrd ered By: Luca Yeh on 11-17-2024 Lymphocytes Auto (Unsp spec) [#/Vol] 0.60 10*3/uL Low 0.83-4.51 [facility] Absolute neutrophil countOrd ered By: Luca Yeh on 11-17-2024 Neutrophils (Bld) [#/Vol] 8.1 10*3/uL High 2.0-7.7 [facility] Anion gap in Serum or Plasma Ordered By: Luca Yeh on 11-17-2024 Anion gap [Moles/Vol] 9 mmol/L 5-15 [facility] Automated lymphocyte count a s percentage of total leukocytesOrdered By: Luca Yeh on 11-17-2024 Lymphocytes/100 WBC Auto (Unsp spec) 6.1 % Low 19-41 [facility] BC GPC IDon 11-17-2024 GPC ID Enterococcus sp. Not Detected Listeria spp Not Detected NAAT METHOD Testing was performed using nucleic acid amplification Staphylococcus sp. Not Detected Streptococcus spp. A DETECTED A mecA Testing not performed Strep anginosus Normal [facility] Comment on above: Performed By: #### L 500.2500, L300.3900, L501.5200, L500.4100, L100.0100 #### [facility] [address] [place], [place], [id number] BUN/creatinine ratioOrdered By: Luca Yeh on 11-17-2024 Urea nitrogen/Creatinine [Mass ratio] 24.6 mg/mg High 10-20 [facility] Basic Metabolic Profile (BMP )on 11-17-2024 BUN/CRE 24.6 RATIO High - [facility] Comment on above: Performed By: #### L 500.2500 #### [facility] [address] [place], [address] ECRCL 78.49 ml/min Normal 50-250 [facility] Comment on above: Performed By: #### L 500.2500 #### [facility] [address] [place], [address] GAP 9 Normal 5-15 [facility] Comment on above: Performed By: #### L 500.2500 #### [facility] [address] [place], [address] Potassium [Moles/Vol] 4.7 mmol/L Normal 3.3-5.1 [facility] Comment on above: Performed By: #### L 500.2500 #### [facility] [address] [place], [address] Basophil percentageOrdered B y: Luca Yeh on 11-17-2024 Basophils/100 WBC (Bld) 0.3 % 0-1 [facility] CBC W/Diff, Automatedon 07- Absolute Lymph 0.60 X10 3/uL Low 0.83-4.51 [facility] Comment on above: Performed By: #### L 100.0100 #### [facility] [address] [place], [address] Absolute Neut 8.1 X10 3/uL High 2.0-7.7 [facility] Comment on above: Performed By: #### L 100.0100 #### [facility] [address] [place], [address] Basophils/100 WBC (Bld) 0.3 % Normal 0-1 [facility] Comment on above: Performed By: #### L 100.0100 #### [facility] [address] [place], [address] Eosinophils/100 WBC (Bld) 0.8 % Normal 0-5 [facility] Comment on above: Performed By: #### L 100.0100 #### [facility] [address] [place] [place], [address] Erythrocyte distribution width (RBC) [Ratio] 14.6 % Normal 11.6-14.6 [facility] Comment on above: Performed By: #### L 100.0100 #### [facility] [address] [place], [address] Hematocrit (Bld) [Volume fraction] 33.2 % Low 40-54 [facility] Comment on above: Performed By: #### L 100.0100 #### [facility] [address] [place], [address] Hemoglobin (Bld) [Mass/Vol] 11.4 g/dL Low 13.0-16.5 [facility] Comment on above: Performed By: #### L 100.0100 #### [facility] [address] [place], [address] IG% 0.900 Normal 0.0-0.9 [facility] Comment on above: Result Comment: IG% - Immature Granulocytes (promyelocytes, myelocytes and metamyelocytes) > 1% indicates that a LEFT SHIFT is Present. Performed By: #### L 100.0100 #### [facility] [address] [place], [address] Lymphocytes/100 WBC (Bld) 6.1 % Low 19-41 [facility] Comment on above: Performed By: #### L 100.0100 #### [facility] [address] [place], [address] MCH (RBC) [Entitic mass] 29.3 pg Normal 27.0-32.0 [facility] Comment on above: Performed By: #### L 100.0100 #### [facility] [address] [place], [address] MCHC (RBC) [Mass/Vol] 34.3 g/dL Normal 32-36 [facility] Comment on above: Performed By: #### L 100.0100 #### [facility] [address] [place], [address] MCV (RBC) [Entitic vol] 85.3 fL Normal 80-94 [facility] Comment on above: Performed By: #### L 100.0100 #### [facility] [address] [place], [address] Monocytes/100 WBC (Bld) 10.0 % Normal 0-10 [facility] Comment on above: Performed By: #### L 100.0100 #### [facility] [address] [place], [address] Neutrophils/100 WBC (Bld) 81.9 % High 47-70 [facility] Comment on above: Performed By: #### L 100.0100 #### [facility] [address] [place], [address] Nucleated RBC (Bld) [#/Vol] 0 10*3/uL Normal 0-5 [facility] Comment on above: Performed By: #### L 100.0100 #### [facility] [address] [place], [address] Platelet mean volume (Bld) [Entitic vol] 9.1 fL Normal 6.2-12.0 [facility] Comment on above: Performed By: #### L 100.0100 #### [facility] [address] [place], [address] Platelets (Bld) [#/Vol] 328 10*3/uL Normal 150-450 [facility] Comment on above: Performed By: #### L 100.0100 #### [facility] [address] [place], [address] RBC (Bld) [#/Vol] 3.89 10*6/uL Low 4.6-6.2 [facility] Comment on above: Performed By: #### L 100.0100 #### [facility] [address] [place], [address] RDW SD 45.9 fl High 35.1-43.9 [facility] Comment on above: Performed By: #### L 100.0100 #### [facility] [address] [place], [address] WBC (Bld) [#/Vol] 9.9 10*3/uL Normal 4.4-11.0 [facility] Comment on above: Performed By: #### L 100.0100 #### [facility] [address] [place], [address] Carbon dioxide, total [Moles /volume] in Central venous bloodOrdered By: Luca Yeh on 11-17-2024 CO2 [Moles/Vol] 23.1 mmol/L 21.0-32.0 [facility] Comment on above: Performed By: #### L 500.2500 #### [facility] [address] [place], [address] Chloride assayOrdered By: Manuel Yeh on 11-17-2024 Chloride [Moles/Vol] 95 mmol/L Low 98-108 [facility] Comment on above: Performed By: #### L 500.2500 #### [facility] [address] [place], [address] Eosinophil percentageOrdered By: Luca Yeh on 11-17-2024 Eosinophils/100 WBC (Bld) 0.8 % 0-[address] [facility] Erythrocyte distribution wid th ratioOrdered By: Luca Yeh on 11-17-2024 Erythrocyte distribution width (RBC) [Ratio] 14.6 % 11.6-14.6 [facility] Erythrocyte distribution wid th standard deviationOrdered By: Luca Yeh on 11-17-2024 Erythrocyte distribution width (RBC) [Ratio] 45.9 fl High 35.1-43.9 [facility] Glomerular filtration rate ( GFR) estimation/1.73 sq m using serum, plasma, or whole bOrdered By: Luca Yeh on 11-17-2024 GFR/1.73 sq M.predicted among non-blacks MDRD (S/P/Bld) [Vol rate/Area] 90 mL/min/{1.73_m2} >60 [facility] Comment on above: mL/min/1.73m2 CKD-EP I Creatinine Equation (2020) Result Comment: mL/m in/1.73m2 CKD-EPI Creatinine Equation (2020) Performed By: #### L 500.2500 #### [facility] [address] [place], [place] [address], [address] Hematocrit Auto (Bld) [Volum e fraction]Ordered By: Luca Yeh on 11-17-2024 Hematocrit (Bld) [Volume fraction] 33.2 % Low 40-54 [facility] Hemoglobin measurementOrdere d By: Luca Yeh on 11-17-2024 Hemoglobin (Bld) [Mass/Vol] 11.4 g/dL Low 13.0-16.5 [facility] Immature granulocytes/100 WB C Auto (Bld)Ordered By: Luca Yeh on 11-17-2024 Immature granulocytes/100 WBC (Bld) 0.900 % 0.0-0.9 [facility] Comment on above: IG% - Immature Granu locytes (promyelocytes, myelocytes and metamyelocytes) > 1% indicates that a LEFT SHIFT is Present. MCV (mean corpuscular volume ) determinationOrdered By: Luca Yeh on 11-17-2024 MCV (RBC) [Entitic vol] 85.3 fL 80-94 [facility] Mean corpuscular hemoglobin (MCH) determinationOrdered By: Luca Yeh on 11-17-2024 MCH (RBC) [Entitic mass] 29.3 pg 27.0-32.0 [facility] Mean corpuscular hemoglobin concentration (MCHC) determinationOrdered By: Luca Yeh on 11-17-2024 MCHC (RBC) [Mass/Vol] 34.3 g/dL 32-36 [facility] Mean platelet volume determi nationOrdered By: Luca Yeh on 11-17-2024 Platelet mean volume (Bld) [Entitic vol] 9.1 fL 6.2-12.0 [facility] Monocyte percentageOrdered B y: Luca Yeh on 11-17-2024 Monocytes/100 WBC (Bld) 10.0 % 0-10 [facility] Neutrophil percentageOrdered By: Luca Yeh on 11-17-2024 Neutrophils/100 WBC (Bld) 81.9 % High 47-70 [facility] Nucleated red blood cell per centageOrdered By: Luca Yeh on 11-17-2024 Nucleated RBC/100 WBC (Bld) [Ratio] 0 % 0-5 [facility] Platelet countOrdered By: Manuel Yeh on 11-17-2024 Platelets (Bld) [#/Vol] 328 10*3/uL 150-450 [facility] Potassium measurement (mass/ volume)Ordered By: Luca Yeh on 11-17-2024 Potassium (Unsp spec) [Mass/Vol] 4.7 mmol/L 3.3-5.1 [facility] RBC Auto (Bld) [#/Vol]Ordere d By: Luca Yeh on 11-17-2024 RBC (Bld) [#/Vol] 3.89 10*6/uL Low 4.6-6.2 [facility] Serum creatinine measurement (mass/volume)Ordered By: Luca Yeh on 11-17-2024 Creatinine [Mass/Vol] 0.70 mg/dL 0.70-1.20 [facility] Comment on above: Performed By: #### L 500.2500 #### [facility] [address] [place], [place] [address]. [place], [place], [id number] Serum glucose measurement (m ass/volume)Ordered By: Luca Yeh on 11-17-2024 Glucose [Mass/Vol] 117 mg/dL High 70-99 [facility] Comment on above: Performed By: #### L 500.2500 #### [facility] [address] [place], [address] Serum or plasma calcium maikel urement (mass/volume)Ordered By: Luca Yeh on 11-17-2024 Calcium [Mass/Vol] 8.2 mg/dL 7.6-11.0 [facility] Comment on above: Performed By: #### L 500.2500 #### [facility] [address], [address] Serum or plasma urea nitroge n measurement (mass/volume)Ordered By: Luca Yeh on 11-17-2024 Urea nitrogen [Mass/Vol] 17 mg/dL 4-19 [facility] Comment on above: Performed By: #### L 500.2500 #### [facility] [address] [place], [address] Sodium levelOrdered By: Luca Yeh on 11-17-2024 Sodium [Moles/Vol] 127 mmol/L Low 133-145 [facility] Comment on above: Performed By: #### L 500.2500 #### [facility] [address] [place], [address] White blood cell (WBC) count Ordered By: Luca Yeh on 11-17-2024 WBC (Bld) [#/Vol] 9.9 10*3/uL 4.4-11.0 [facility] Basic Metabolic Profile (BMP )on 11-16-2024 BUN/CRE 26.3 RATIO High 10-20 [facility] Comment on above: Order Comment: Comme nts: NPO at [place] prior to lipid panel Performed By: #### L 500.2500, L300.3900, L501.5200, L500.4100, L100.0100 #### [facility] [address] [place], [address] Calcium [Mass/Vol] 8.0 mg/dL Normal 7.6-11.0 [facility] Comment on above: Order Comment: Comme nts: NPO at [place] prior to lipid panel Performed By: #### L 500.2500, L300.3900, L501.5200, L500.4100, L100.0100 #### [facility] [address] [place], [address] Chloride [Moles/Vol] 95 mmol/L Low 98-108 [facility] Comment on above: Order Comment: Comme nts: NPO at [place] prior to lipid panel Performed By: #### L 500.2500, L300.3900, L501.5200, L500.4100, L100.0100 #### [facility] [address] [place], [address] CO2 [Moles/Vol] 23.7 mmol/L Normal 21.0-32.0 [facility] Comment on above: Order Comment: Comme nts: NPO at [place] prior to lipid panel Performed By: #### L 500.2500, L300.3900, L501.5200, L500.4100, L100.0100 #### [facility] [address] [place], [address] Creatinine [Mass/Vol] 0.72 mg/dL Normal 0.70-1.20 [facility] Comment on above: Order Comment: Comme nts: NPO at [place] prior to lipid panel Performed By: #### L 500.2500, L300.3900, L501.5200, L500.4100, L100.0100 #### [facility] [address] [place], [address] ECRCL 78.49 ml/min Normal 50-250 [facility] Comment on above: Order Comment: Comme nts: NPO at [place] prior to lipid panel Performed By: #### L 500.2500, L300.3900, L501.5200, L500.4100, L100.0100 #### [facility] [address] [place], [address] GAP 9 Normal 5-15 [facility] Comment on above: Order Comment: Comme nts: NPO at [place] prior to lipid panel Performed By: #### L 500.2500, L300.3900, L501.5200, L500.4100, L100.0100 #### [facility] [address] [place], [address] GFR/1.73 sq M.predicted among non-blacks MDRD (S/P/Bld) [Vol rate/Area] 90 mL/min/{1.73_m2} Normal >60 [facility] Comment on above: Order Comment: Comme nts: NPO at [place] prior to lipid panel Result Comment: mL/m in/1.73m2 CKD-EPI Creatinine Equation (2020) Performed By: #### L 500.2500, L300.3900, L501.5200, L500.4100, L100.0100 #### [facility] [address] [place], [address] Glucose [Mass/Vol] 122 mg/dL High 70-99 [facility] Comment on above: Order Comment: Comme nts: NPO at [place] prior to lipid panel Performed By: #### L 500.2500, L300.3900, L501.5200, L500.4100, L100.0100 #### [facility] [address] [place], [address] Potassium [Moles/Vol] 3.9 mmol/L Normal 3.3-5.1 [facility] Comment on above: Order Comment: Comme nts: NPO at [place] prior to lipid panel Performed By: #### L 500.2500, L300.3900, L501.5200, L500.4100, L100.0100 #### [facility] [address] [place], [address] Sodium [Moles/Vol] 127 mmol/L Low 133-145 [facility] Comment on above: Order Comment: Comme nts: NPO at [place] prior to lipid panel Performed By: #### L 500.2500, L300.3900, L501.5200, L500.4100, L100.0100 #### [facility] [address] [place], [address] Urea nitrogen [Mass/Vol] 19 mg/dL Normal 4-19 [facility] Comment on above: Order Comment: Comme nts: NPO at [place] prior to lipid panel Performed By: #### L 500.2500, L300.3900, L501.5200, L500.4100, L100.0100 #### [facility] [address] [place], [address] Brain without Contraston Brain without Contrast [facility] Services [address] [place] [address] Brain without Contrast MR#: [id number] Acct: [id number] Name: PHILLY JOEL Rep #: [id number] : 1940 M 84 From: Sushil [place] DO PCP: Dr. Guilherme Fallon MD Status: ADM IN Study: Brain without Contrast Date of Exam: 11/16/24 Exam# [id number] Ordering Dr: Shannan Patterson MD PROCEDURE: BRAIN [...] Right maxillary sinusitis Reading Location: [facility] CC: Dr. Guilherme Fallon MD; Dr. Shannan Patterson MD Chief Deputy: Signed Normal [facility] CBC W/Diff, Automatedon 07-0 Absolute Lymph 0.48 X10 3/uL Low 0.83-4.51 [facility] Comment on above: Performed By: #### L 500.2500, L300.3900, L501.5200, L500.4100, L100.0100 #### [facility] [address] [place], [address] Absolute Neut 7.0 X10 3/uL Normal 2.0-7.7 [facility] Comment on above: Performed By: #### L 500.2500, L300.3900, L501.5200, L500.4100, L100.0100 #### [facility] [address] [place], [address] Basophils/100 WBC (Bld) 0.3 % Normal 0-1 [facility] Comment on above: Performed By: #### L 500.2500, L300.3900, L501.5200, L500.4100, L100.0100 #### [facility] [address] [place], [address] Eosinophils/100 WBC (Bld) 0.6 % Normal 0-5 [facility] Comment on above: Performed By: #### L 500.2500, L300.3900, L501.5200, L500.4100, L100.0100 #### [facility] [address] [place], [address] Erythrocyte distribution width (RBC) [Ratio] 14.7 % High 11.6-14.6 [facility] Comment on above: Performed By: #### L 500.2500, L300.3900, L501.5200, L500.4100, L100.0100 #### [facility] [address] [place], [address] Hematocrit (Bld) [Volume fraction] 29.8 % Low 40-54 [facility] Comment on above: Performed By: #### L 500.2500, L300.3900, L501.5200, L500.4100, L100.0100 #### [facility] [address] [place], [address] Hemoglobin (Bld) [Mass/Vol] 10.3 g/dL Low 13.0-16.5 [facility] Comment on above: Performed By: #### L 500.2500, L300.3900, L501.5200, L500.4100, L100.0100 #### [facility] [address] [place], [address] IG% 1.000 High 0.0-0.9 [facility] Comment on above: Result Comment: IG% - Immature Granulocytes (promyelocytes, myelocytes and metamyelocytes) > 1% indicates that a LEFT SHIFT is Present. Performed By: #### L 500.2500, L300.3900, L501.5200, L500.4100, L100.0100 #### [facility] [address] [place], [address] Lymphocytes/100 WBC (Bld) 5.5 % Low 19-41 [facility] Comment on above: Performed By: #### L 500.2500, L300.3900, L501.5200, L500.4100, L100.0100 #### [facility] [address] [place], [address] MCH (RBC) [Entitic mass] 29.6 pg Normal 27.0-32.0 [facility] Comment on above: Performed By: #### L 500.2500, L300.3900, L501.5200, L500.4100, L100.0100 #### [facility] [address] [place], [address] MCHC (RBC) [Mass/Vol] 34.6 g/dL Normal 32-36 [facility] Comment on above: Performed By: #### L 500.2500, L300.3900, L501.5200, L500.4100, L100.0100 #### [facility] [address] [place], [address] MCV (RBC) [Entitic vol] 85.6 fL Normal 80-94 [facility] Comment on above: Performed By: #### L 500.2500, L300.3900, L501.5200, L500.4100, L100.0100 #### [facility] [address] [place], [address] Monocytes/100 WBC (Bld) 12.3 % High 0-10 [facility] Comment on above: Performed By: #### L 500.2500, L300.3900, L501.5200, L500.4100, L100.0100 #### [facility] [address] [place], [address] Neutrophils/100 WBC (Bld) 80.3 % High 47-70 [facility] Comment on above: Performed By: #### L 500.2500, L300.3900, L501.5200, L500.4100, L100.0100 #### [facility] [address] [place], [address] Nucleated RBC (Bld) [#/Vol] 0 10*3/uL Normal 0-5 [facility] Comment on above: Performed By: #### L 500.2500, L300.3900, L501.5200, L500.4100, L100.0100 #### [facility] [address] [place], [address] Platelet mean volume (Bld) [Entitic vol] 9.5 fL Normal 6.2-12.0 [facility] Comment on above: Performed By: #### L 500.2500, L300.3900, L501.5200, L500.4100, L100.0100 #### [facility] [address] [place], [address] Platelets (Bld) [#/Vol] 242 10*3/uL Normal 150-450 [facility] Comment on above: Performed By: #### L 500.2500, L300.3900, L501.5200, L500.4100, L100.0100 #### [facility] [address] [place], [address] RBC (Bld) [#/Vol] 3.48 10*6/uL Low 4.6-6.2 [facility] Comment on above: Performed By: #### L 500.2500, L300.3900, L501.5200, L500.4100, L100.0100 #### [facility] [address] [place], [address] RDW SD 45.9 fl High 35.1-43.9 [facility] Comment on above: Performed By: #### L 500.2500, L300.3900, L501.5200, L500.4100, L100.0100 #### [facility] [address] [place], [address] WBC (Bld) [#/Vol] 8.7 10*3/uL Normal 4.4-11.0 [facility] Comment on above: Performed By: #### L 500.2500, L300.3900, L501.5200, L500.4100, L100.0100 #### [facility] [address] [place], [address] Calculated very low density lipoprotein (VLDL) cholesterol measurementOrdered By: Shannan Patterson on 11-16-2024 Calculated very low density lipoprotein (VLDL) cholesterol measurement 10 mg/dL 5-40 [facility] Echocardiogram study reportO rdered By: Jose Alberto Swann on 11-16-2024 Study report [facility] [place] [address] Echo Complete 11/16/24 1529 MR#: [id number] Acct: [id number] Name: PHILLY JOEL Rep #:[id number] : 1940 84 From: Jose Alberto Sanchez Attending Dr: Dr. Luca Yeh, DO Status: ADM IN Ordering Dr: Shannan Patterson MD Date: Location: [facility] Sex: M C Admitted: 11/15/24 Reason For [...] Dictated: 11/16/24 1529 Date Transcribed: 11/16/24 170 Chief Deputy: Signed [facility] Work Phone: Hemoglobin A1con 11-16-2024 HbA1c (Bld) [Mass fraction] 5.2 % Normal <=5.6 [facility] Comment on above: Result Comment: Norm al < 5.7 % Prediabetic 5.7 - 6.4 % Diabetic >or= 6.5 % Please note range changes. Performed By: #### L 500.2500, L300.3900, L501.5200, L500.4100, L100.0100 #### [facility] [address] [place], [place], [id number] Hemoglobin A1c percentageOrd ered By: Shannan Patterson on 11-16-2024 HbA1c (Bld) [Mass fraction] 5.2 % <5.7 [facility] Comment on above: Normal < 5.7 % Predi abetic 5.7 - 6.4 % Diabetic >or= 6.5 % Please note range changes. International normalized rat io (INR) calculationOrdered By: Shannan Patterson on 11-16-2024 INR Coag (Bld) [Relative time] 1.3 {INR} [facility] LDL calc ser/plasOrdered By: Shannan Patterson on 11-16-2024 Cholesterol in LDL [Mass/Vol] 54 mg/dL [facility] Comment on above: Babwflwejf=619-877 m g/dL & Higher Vmiq=793 mg/dL or greater Lipid Profileon 11-16-2024 CHOL:HDL 3.33 Normal [facility] Comment on above: Order Comment: Comme nts: NPO at [place] prior to lipid panel Performed By: #### L 500.2500, L300.3900, L501.5200, L500.4100, L100.0100 #### [facility] [address] [place], [address] Cholesterol [Mass/Vol] 91 mg/dL Normal <=200 [facility] Comment on above: Order Comment: Comme nts: NPO at [place] prior to lipid panel Result Comment: Chol esterol level, Desirable <200 mg/dL Borderline high cholesterol 200-239 mg/dL High cholesterol >=240 mg/dL Recommendations of the NCEP Adult Treatment Panel for the following risk-cutoff thresholds for the [place] Citizen population. Performed By: #### L 500.2500, L300.3900, L501.5200, L500.4100, L100.0100 #### [facility] [address] [place], [address] Cholesterol in HDL [Mass/Vol] 27 mg/dL Low [facility] Comment on above: Order Comment: Comme nts: NPO at [place] prior to lipid panel Result Comment: Wilma onal Cholesterol Education Program (NCEP) guidelines: <40 mg/dL: Low HDL-cholesterol (major risk factor for CHD) >= 60 mg/dL: High HDL-cholesterol (negative risk factor for CHD) HDL-cholesterol is affected by a number of factors, e.g. smoking, exercise, hormones, sex and age. Performed By: #### L 500.2500, L300.3900, L501.5200, L500.4100, L100.0100 #### [facility] [address] [place], [address] Cholesterol in LDL [Mass/Vol] 54 mg/dL Normal [facility] Comment on above: Order Comment: Comme nts: NPO at [place] prior to lipid panel Result Comment: Bord vsooaq=360-695 mg/dL Higher Mtez=209 mg/dL or greater Performed By: #### L 500.2500, L300.3900, L501.5200, L500.4100, L100.0100 #### [facility] [address] [place], [address] Cholesterol in VLDL [Mass/Vol] 10 mg/dL Normal 5-40 [facility] Comment on above: Order Comment: Comme nts: NPO at [place] prior to lipid panel Performed By: #### L 500.2500, L300.3900, L501.5200, L500.4100, L100.0100 #### [facility] [address] [place], [address] Triglyceride [Mass/Vol] 49 mg/dL Normal [facility] Comment on above: Order Comment: Comme nts: NPO at [place] prior to lipid panel Result Comment: The drugs N-Acetylcysteine and Metamizole may falsely depress this assay. Normal range: <150 mg/dL Borderline High: 150-199 mg/dL High: 200-499 mg/dL Very High: >500 mg/dL Performed By: #### L 500.2500, L300.3900, L501.5200, L500.4100, L100.0100 #### [facility] [address] [place], [address] Magnesiumon 11-16-2024 Magnesium [Mass/Vol] 2.0 mg/dL Normal 1.5-2.2 [facility] Comment on above: Order Comment: Comme nts: NPO at [place] prior to lipid panel Performed By: #### L 500.2500, L300.3900, L501.5200, L500.4100, L100.0100 #### [facility] [address] [place] [place], [address] Magnesium measurement (mass/ volume)Ordered By: Shannan Patterson on 11-16-2024 Magnesium (Unsp spec) [Mass/Vol] 2.0 mg/dL 1.5-2.2 [facility] Magnetic resonance imaging r eportOrdered By: Suhsil [place] on 11-16-2024 Study report [facility] Services [address] [place], [place] [address] [phone] Brain without Contrast MR#: [id number] Acct: [id number] Name: PHILLY JOEL Rep #: [id number] : 1940 M 84 From: Pet er Leonel MOSELEY PCP: Dr. Guilherme Fallon MD Status: ADM IN Study:Brain without Contrast Date of Exam: 11/16/24 Exam# [id number] Ordering Dr: Nataliya Patterson MD PROCEDURE: BRAIN [...] Right maxillary sinusitis Reading Location: [facility] CC: Dr. Guilherme Fallon MD; Dr. Shannan Patterson MD ~ Chief Deputy: Signed [facility] Prothrombin Time w/INRon INR Coag (PPP) [Relative time] 1.3 {INR} Normal [facility] Comment on above: Performed By: #### L 500.2500, L300.3900, L501.5200, L500.4100, L100.0100 #### [facility] [address] [place], [place], [phone] PT Coag (PPP) [Time] 15.9 s High 11.7-14.9 [facility] Comment on above: Performed By: #### L 500.2500, L300.3900, L501.5200, L500.4100, L100.0100 #### [facility] [address] [place], [address] Prothrombin timeOrdered By: Shannan Patterson on 11-16-2024 PT Coag (PPP) [Time] 15.9 s High 11.7-14.9 [facility] Screening total cholesterol/ high density lipoprotein (HDL) cholesterol ratioOrdered By: Shannan Patterson on 11-16-2024 Cholesterol.total/Chol esterol in HDL [Mass ratio] 3.33 {ratio} [facility] Serum or plasma cholesterol in HDL measurement (mass/volume)Ordered By: Shannan Patterson on 11-16-2024 Cholesterol in HDL [Mass/Vol] 27 mg/dL Low >40 [facility] Comment on above: National Cholesterol Education Program (NCEP) guidelines:<40 mg/dL: Low HDL-cholesterol (major risk factor for CHD)>= 60 mg/dL: High HDL-cholesterol (negative risk factor for CHD)HDL-cholesterol is affected by a number of factors, e.g. smoking, exercise, hormones, sex and age. Serum or plasma cholesterol measurement (mass/volume)Ordered By: Shannan Patterson on 11-16-2024 Cholesterol [Mass/Vol] 91 mg/dL <201 [facility] Comment on above: Cholesterol level, D esirable <200 mg/dLBorderline high cholesterol 200-239 mg/dLHigh cholesterol >=240 mg/dLRecommendations of the NCEP Adult Treatment Panel for the following risk-cutoff thresholds for the [place] Citizen population. Triglycerides measurementOrd ered By: Shannan Patterson on 11-16-2024 Triglyceride [Mass/Vol] 49 mg/dL <199 [facility] Comment on above: The drugs N-Acetylcy steine and Metamizole may falsely depress this assay. Normal range: <150 mg/dLBorderline High: 150-199 mg/dLHigh: 200-499 mg/dLVery High: >500 mg/dL Absolute lymphocyte countOrd ered By: Dina Guzmán on 11-15-2024 Lymphocytes Auto (Unsp spec) [#/Vol] 0.67 10*3/uL Low 0.83-4.51 [facility] Absolute neutrophil countOrd ered By: Dina Guzmán on 11-15-2024 Neutrophils (Bld) [#/Vol] 8.2 10*3/uL High 2.0-7.7 [facility] Anion gap in Serum or Plasma Ordered By: Dina Guzmán on 11-15-2024 Anion gap [Moles/Vol] 13 mmol/L 5-15 [facility] Automated lymphocyte count a s percentage of total leukocytesOrdered By: Dinachance Guzmán on 11-15-2024 Lymphocytes/100 WBC Auto (Unsp spec) 6.4 % Low 19-41 [facility] BUN/creatinine ratioOrdered By: Dina Guzmán on 11-15-2024 Urea nitrogen/Creatinine [Mass ratio] 25.5 mg/mg High 10-20 [facility] Basic Metabolic Profile (BMP )on 11-15-2024 BUN/CRE 27.9 RATIO High 10- [facility] Comment on above: Performed By: #### L 500.2500, L300.3900, L501.5200, L500.4100, L100.0100 #### [facility] [address] [place], [address] Calcium [Mass/Vol] 8.0 mg/dL Normal 7.6-11.0 [facility] Comment on above: Performed By: #### L 500.2500, L300.3900, L501.5200, L500.4100, L100.0100 #### [facility] [address] [place], [address] Chloride [Moles/Vol] 96 mmol/L Low 98-108 [facility] Comment on above: Performed By: #### L 500.2500, L300.3900, L501.5200, L500.4100, L100.0100 #### [facility] [address] [place], [address] CO2 [Moles/Vol] 22.7 mmol/L Normal 21.0-32.0 [facility] Comment on above: Performed By: #### L 500.2500, L300.3900, L501.5200, L500.4100, L100.0100 #### [facility] [address] [place], [address] Creatinine [Mass/Vol] 0.79 mg/dL Normal 0.70-1.20 [facility] Comment on above: Performed By: #### L 500.2500, L300.3900, L501.5200, L500.4100, L100.0100 #### [facility] [address] [place], [address] ECRCL 78.49 ml/min Normal 50-250 [facility] Comment on above: Performed By: #### L 500.2500, L300.3900, L501.5200, L500.4100, L100.0100 #### [facility] [address] [place], [address] GAP 9 Normal 5-15 [facility] Comment on above: Performed By: #### L 500.2500, L300.3900, L501.5200, L500.4100, L100.0100 #### [facility] [address] [place], [address] GFR/1.73 sq M.predicted among non-blacks MDRD (S/P/Bld) [Vol rate/Area] 87 mL/min/{1.73_m2} Normal >60 [facility] Comment on above: Result Comment: mL/m in/1.73m2 CKD-EPI Creatinine Equation (2020) Performed By: #### L 500.2500, L300.3900, L501.5200, L500.4100, L100.0100 #### [facility] [address] [place], [address] Glucose [Mass/Vol] 149 mg/dL High 70-99 [facility] Comment on above: Performed By: #### L 500.2500, L300.3900, L501.5200, L500.4100, L100.0100 #### [facility] [address] [place], [address] Potassium [Moles/Vol] 4.0 mmol/L Normal 3.3-5.1 [facility] Comment on above: Performed By: #### L 500.2500, L300.3900, L501.5200, L500.4100, L100.0100 #### [facility] [address] [place], [address] Sodium [Moles/Vol] 127 mmol/L Low 133-145 [facility] Comment on above: Performed By: #### L 500.2500, L300.3900, L501.5200, L500.4100, L100.0100 #### [facility] [address] [place], [address] Urea nitrogen [Mass/Vol] 22 mg/dL High 4-19 [facility] Comment on above: Performed By: #### L 500.2500, L300.3900, L501.5200, L500.4100, L100.0100 #### [facility] [address] [place], [address] BUN/CRE 25.9 RATIO High 10-20 [facility] Comment on above: Performed By: #### L 500.2500, L300.3900, L501.5200, L500.4100, L100.0100 #### [facility] [address] [place], [address] Calcium [Mass/Vol] 8.4 mg/dL Normal 7.6-11.0 [facility] Comment on above: Performed By: #### L 500.2500, L300.3900, L501.5200, L500.4100, L100.0100 #### [facility] [address] [place], [address] Chloride [Moles/Vol] 93 mmol/L Low 98-108 [facility] Comment on above: Performed By: #### L 500.2500, L300.3900, L501.5200, L500.4100, L100.0100 #### [facility] [address] [place], [address] CO2 [Moles/Vol] 26.1 mmol/L Normal 21.0-32.0 [facility] Comment on above: Performed By: #### L 500.2500, L300.3900, L501.5200, L500.4100, L100.0100 #### [facility] [address] [place], [address] Creatinine [Mass/Vol] 0.82 mg/dL Normal 0.70-1.20 [facility] Comment on above: Performed By: #### L 500.2500, L300.3900, L501.5200, L500.4100, L100.0100 #### [facility] [address] [place], [address] ECRCL 76.58 ml/min Normal 50-250 [facility] Comment on above: Performed By: #### L 500.2500, L300.3900, L501.5200, L500.4100, L100.0100 #### [facility] [address] [place], [address] GAP 9 Normal 5-15 [facility] Comment on above: Performed By: #### L 500.2500, L300.3900, L501.5200, L500.4100, L100.0100 #### [facility] [address] [place], [address] GFR/1.73 sq M.predicted among non-blacks MDRD (S/P/Bld) [Vol rate/Area] 86 mL/min/{1.73_m2} Normal >60 [facility] Comment on above: Result Comment: mL/m in/1.73m2 CKD-EPI Creatinine Equation (2020) Performed By: #### L 500.2500, L300.3900, L501.5200, L500.4100, L100.0100 #### [facility] [address] [place], [address] Glucose [Mass/Vol] 124 mg/dL High 70-99 [facility] Comment on above: Performed By: #### L 500.2500, L300.3900, L501.5200, L500.4100, L100.0100 #### [facility] [address] [place], [address] Potassium [Moles/Vol] 4.2 mmol/L Normal 3.3-5.1 [facility] Comment on above: Performed By: #### L 500.2500, L300.3900, L501.5200, L500.4100, L100.0100 #### [facility] [address] [place], [address] Sodium [Moles/Vol] 128 mmol/L Low 133-145 [facility] Comment on above: Performed By: #### L 500.2500, L300.3900, L501.5200, L500.4100, L100.0100 #### [facility] [address] [place], [address] Urea nitrogen [Mass/Vol] 21 mg/dL High 4-19 [facility] Comment on above: Performed By: #### L 500.2500, L300.3900, L501.5200, L500.4100, L100.0100 #### [facility] [address] [place], [address] BUN/CRE 25.5 RATIO High 10-20 [facility] Comment on above: Performed By: #### L 500.2500, L100.0100 #### [facility] [address] [place], [address] Calcium [Mass/Vol] 8.9 mg/dL Normal 7.6-11.0 [facility] Comment on above: Performed By: #### L 500.2500, L100.0100 #### [facility] [address] [place], [address] Chloride [Moles/Vol] 92 mmol/L Low 98-108 [facility] Comment on above: Performed By: #### L 500.2500, L100.0100 #### [facility] [address] [place], [address] CO2 [Moles/Vol] 21.0 mmol/L Normal 21.0-32.0 [facility] Comment on above: Performed By: #### L 500.2500, L100.0100 #### [facility] [address] [place], [address] Creatinine [Mass/Vol] 0.79 mg/dL Normal 0.70-1.20 [facility] Comment on above: Performed By: #### L 500.2500, L100.0100 #### [facility] [address] [place], [address] GAP 13 Normal 5-15 [facility] Comment on above: Performed By: #### L 500.2500, L100.0100 #### [facility] [address] [place], [address] GFR/1.73 sq M.predicted among non-blacks MDRD (S/P/Bld) [Vol rate/Area] 87 mL/min/{1.73_m2} Normal >60 [facility] Comment on above: Result Comment: mL/m in/1.73m2 CKD-EPI Creatinine Equation (2020) Performed By: #### L 500.2500, L100.0100 #### [facility] [address] [place], [address] Glucose [Mass/Vol] 86 mg/dL Normal 70-99 [facility] Comment on above: Performed By: #### L 500.2500, L100.0100 #### [facility] [address] [place], [address] Potassium [Moles/Vol] 4.4 mmol/L Normal 3.3-5.1 [facility] Comment on above: Result Comment: Hemo lysis present, Results??could be affected. ?? Performed By: #### L 500.2500, L100.0100 #### [facility] [address] [place], [address] Sodium [Moles/Vol] 126 mmol/L Low 133-145 [facility] Comment on above: Performed By: #### L 500.2500, L100.0100 #### [facility] [address] [place], [address] Urea nitrogen [Mass/Vol] 20 mg/dL High 4-19 [facility] Comment on above: Performed By: #### L 500.2500, L100.0100 #### [facility] [address] [place], [address] Basophil percentageOrdered B y: Dina Guzmán on 11-15-2024 Basophils/100 WBC (Bld) 0.2 % 0-1 [facility] Bilirubin Test strip Ql (U)O rdered By: Dina Guzmán on 11-15-2024 Bilirubin Ql (U) Negative Negative [facility] Blood cultureOrdered By: Radha Patterson on 11-15-2024 Bacteria identified Cx Nom (Bld) Strep anginosus Abnormal [facility] Brain/Head without Contrasto n 11-15-2024 Brain/Head without Contrast [facility] [address] [place] [address] Brain/Head without Contrast MR#: [id number] Acct: [id number] Name: PHILLY JOEL Rep #: [id number] : 1940 M 84 From: Michela Holt nd, MD PCP: Dr. Guilherme Fallon MD Status: ADM IN Study: Brain/Head without Contrast Date of Exam: 11/04 Exam# [id number] Ordering Dr: Dina Guzmán EXAM: BRAIN/HEAD WITHOUT [...] IMPRESSION: No acute intracranial finding. Reading Location: [id number] CC: Dr. Guilherme Fallon MD; JOLIE Ibarra Chief Deputy: Signed Normal [facility] CBC W/Diff, Automatedon 07-0 Absolute Lymph 0.67 X10 3/uL Low 0.83-4.51 [facility] Comment on above: Performed By: #### L 500.2500, L100.0100 #### [facility] [address] [place], [address] Absolute Neut 8.2 X10 3/uL High 2.0-7.7 [facility] Comment on above: Performed By: #### L 500.2500, L100.0100 #### [facility] [address] [facility] [place], [address] Basophils/100 WBC (Bld) 0.2 % Normal 0-1 [facility] Comment on above: Performed By: #### L 500.2500, L100.0100 #### [facility] [address] [facility] [place], [address] Eosinophils/100 WBC (Bld) 0.2 % Normal 0-5 [facility] Comment on above: Performed By: #### L 500.2500, L100.0100 #### [facility] [address] [place], [address] Erythrocyte distribution width (RBC) [Ratio] 14.8 % High 11.6-14.6 [facility] Comment on above: Performed By: #### L 500.2500, L100.0100 #### [facility] [address] [place], [address] Hematocrit (Bld) [Volume fraction] 38.3 % Low 40-54 [facility] Comment on above: Performed By: #### L 500.2500, L100.0100 #### [facility] [address] [place], [address] Hemoglobin (Bld) [Mass/Vol] 12.5 g/dL Low 13.0-16.5 [facility] Comment on above: Performed By: #### L 500.2500, L100.0100 #### [facility] [address] [place], [address] IG% 1.300 High 0.0-0.9 [facility] Comment on above: Result Comment: IG% - Immature Granulocytes (promyelocytes, myelocytes and metamyelocytes) > 1% indicates that a LEFT SHIFT is Present. Performed By: #### L 500.2500, L100.0100 #### [facility] [address] [place], [address] Lymphocytes/100 WBC (Bld) 6.4 % Low 19-41 [facility] Comment on above: Performed By: #### L 500.2500, L100.0100 #### [facility] [address] [place], [address] MCH (RBC) [Entitic mass] 29.1 pg Normal 27.0-32.0 [facility] Comment on above: Performed By: #### L 500.2500, L100.0100 #### [facility] [address] [place], [address] MCHC (RBC) [Mass/Vol] 32.6 g/dL Normal 32-36 [facility] Comment on above: Performed By: #### L 500.2500, L100.0100 #### [facility] [address] [place], [address] MCV (RBC) [Entitic vol] 89.1 fL Normal 80-94 [facility] Comment on above: Performed By: #### L 500.2500, L100.0100 #### [facility] [address] [place], [address] Monocytes/100 WBC (Bld) 13.6 % High 0-10 [facility] Comment on above: Performed By: #### L 500.2500, L100.0100 #### [facility] [address] [place], [address] Neutrophils/100 WBC (Bld) 78.3 % High 47-70 [facility] Comment on above: Performed By: #### L 500.2500, L100.0100 #### [facility] [address] [place], [address] Nucleated RBC (Bld) [#/Vol] 0 10*3/uL Normal 0-5 [facility] Comment on above: Performed By: #### L 500.2500, L100.0100 #### [facility] [address] [place], [address] Platelet mean volume (Bld) [Entitic vol] 9.5 fL Normal 6.2-12.0 [facility] Comment on above: Performed By: #### L 500.2500, L100.0100 #### [facility] [address] [place], [address] Platelets (Bld) [#/Vol] 237 10*3/uL Normal 150-450 [facility] Comment on above: Performed By: #### L 500.2500, L100.0100 #### [facility] [address] [place], [address] RBC (Bld) [#/Vol] 4.30 10*6/uL Low 4.6-6.2 [facility] Comment on above: Performed By: #### L 500.2500, L100.0100 #### [facility] [address] [place], [address] RDW SD 48.0 fl High 35.1-43.9 [facility] Comment on above: Performed By: #### L 500.2500, L100.0100 #### [facility] [address] [place], [address] WBC (Bld) [#/Vol] 10.5 10*3/uL Normal 4.4-11.0 [facility] Comment on above: Performed By: #### L 500.2500, L100.0100 #### [facility] [address] [place], [address] Carbon dioxide, total [Moles /volume] in Central venous bloodOrdered By: Dina Guzmán on 11-15-2024 CO2 [Moles/Vol] 21.0 mmol/L 21.0-32.0 [facility] Chest 1 View (Portable)on Chest 1 View (Portable) [facility] [address] [place] [address] Chest 1 View (Portable) MR#: [id number] Acct: [id number] Name: PHILLY JOEL Rep #: [id number] : 1940 M 84 From: Sushil Castaneda DO PCP: Dr. Guilherme Fallon MD Status: ADM IN Study: Chest 1 View (Portable) Date of Exam: 11/15/24 Exam# [id number] Ordering Dr: Shannan Patterson MD PROCEDURE: CHEST [...] of an acute cardiopulmonary process. [facility] CC: Dr. Guilherme Fallon MD; Dr. Shannan Patterson MD Chief Deputy: Signed Normal [facility] Chloride assayOrdered By: Colleen Guzmán on 11-15-2024 Chloride [Moles/Vol] 92 mmol/L Low 98-108 [facility] Creatinine, Urine (random)on 11-15-2024 UR CREAT 121.00 mg/dL Normal 39.00-259. 00 [facility] Comment on above: Performed By: #### L 500.2500, L300.3900, L501.5200, L500.4100, L100.0100 #### [facility] [address] [place], [address] Echo Completeon 11-15-2024 Echo Complete [facility] Cardi[facility] Services [address] [facility] [place] [address] Echo Complete 11/16/24 1529 MR#: [id number] Acct: [id number] Name: PHILLY JOEL Rep #: [id number] : 1940 84 From: Jose Alberto Swann [...] sec Doppler Measurements Calculations MV E max hselli: 58.2 cm/sec Lat Peak E' Shelli: 12.9 [...] Dictated: 11/16/24 1529 Date Transcribed: 11/16/24 170 Chief Deputy: Signed Normal [facility] Emergency Department Summary on 11-15-2024 Emergency Department Summary [facility] Medical Records Department [address] [place] [address] Emergency Department Summary 11/15/24 MR#: [id number] Acct: [id number] Name: PHILLY JOEL Rep #: [id number] : 1940 84 From: Chetan Mata MD PCP: Dr. Guilherme Fallon MD Status:ADM IN Location: [place] [address] HPI History of Present Illness Chief Complaint: [...] call EMS today to bring him in. [facility] Medical History (Updated 11/15/24 @ 14:53 by [...] 78.3 H Lymph % (Auto) 6.4 L [place] % (Auto) 13.6 H Eos % (Auto) [...] 20.80 H (more content not included)... Normal [facility] Eosinophil percentageOrdered By: Dina Guzmán on 11-15-2024 Eosinophils/100 WBC (Bld) 0.2 % 0-5 [facility] Erythrocyte distribution wid th ratioOrdered By: Dina Guzmán on 11-15-2024 Erythrocyte distribution width (RBC) [Ratio] 14.8 % High 11.6-14.6 [facility] Erythrocyte distribution wid th standard deviationOrdered By: Dina Guzmán on 11-15-2024 Erythrocyte distribution width (RBC) [Ratio] 48.0 fl High 35.1-43.9 [facility] Glomerular filtration rate ( GFR) estimation/1.73 sq m using serum, plasma, or whole bOrdered By: Dina Guzmán on 11-15-2024 GFR/1.73 sq M.predicted among non-blacks MDRD (S/P/Bld) [Vol rate/Area] 87 mL/min/{1.73_m2} >60 [facility] Comment on above: mL/min/1.73m2 CKD-EP I Creatinine Equation (2020) H AND P Exam - Hospitaliston 11-15-2024 H&P Exam - Hospitalist [facility] Medical Records Department [address] [place] [address] H P Exam - Hospitalist 11/15/24 1441 MR#: [id number] Acct: [id number] Name: PHILLY JOEL Rep #: [id number] : 1940 84 From: Shannan Patterson MD PCP: Dr. Guilherme Fallon MD Status:ADM IN Location: [facility] [id number] HPI - General General Date of Admission: 11/15/24 Date of Service: 11/15/24 Chief Complaint: Right leg weakness HPI Narrative PHILLY JOEL, is a 84M with a history of hypertension and left femur break last March requiring surgery at presented [facility] ED 11/15/2024 with weakness. In the ED [...] to PCU as a stroke rule out [facility] Medical History (Updated 11/15/24 @ [...] edema Musculoskeleta (more content not included)... Normal [facility] Hematocrit Auto (Bld) [Volum e fraction]Ordered By: Dina Guzmán on 11-15-2024 Hematocrit (Bld) [Volume fraction] 38.3 % Low 40-54 [facility] Hemoglobin measurementOrdere d By: Dina Guzmán on 11-15-2024 Hemoglobin (Bld) [Mass/Vol] 12.5 g/dL Low 13.0-16.5 [facility] Hips B/L min 2 views w/ Pelv darline 11-15-2024 Hips B/L min 2 views w/ Pelvis [facility] Imaging Services [address] [place] [address] Hips B/L min 2 views w/ Pelvis MR#: [id number] Acct: [id number] Name: PHILLY JOEL Rep #: [id number] : 1940 M 84 From: Sushil [place] DO PCP: Dr. Guilherme Fallon MD Status: ADM IN Study: Hips B/L min 2 views w/ Pelvis Date of Exam: 0 11/15/24 Exam# [id number] Ordering Dr: Shannan Patterson MD PROCEDURE: HIPS [...] Unremarkable soft tissues Other: No fractures of igiugig surrounding bone RAD/Hips B/L min 2 views w/ Pelvis IMPRESSION: No acute fracture identified. Hardware as described above. Reading [facility] CC: Dr. Guilherme Fallon MD; Dr. Shannan Patterson MD Chief Deputy: Signed Normal [facility] Immature granulocytes/100 WB C Auto (Bld)Ordered By: Dina Guzmán on 11-15-2024 Immature granulocytes/100 WBC (Bld) 1.300 % High 0.0-0.9 [facility] Comment on above: IG% - Immature Granu locytes (promyelocytes, myelocytes and metamyelocytes) > 1% indicates that a LEFT SHIFT is Present. Ketones Test strip Ql (U)Ord ered By: Dina Guzmán on 11-15-2024 Ketones Ql (U) Negative Negative [facility] L503.7505on 11-15-2024 Natriuretic peptide B (Bld) [Mass/Vol] 2964 pg/mL High <=1800 [facility] Comment on above: Order Comment: Comme nts: Add onto previous labs if possible Result Comment: Hear t Failure Unlikely: < 300 pg/mL Heart Failure Likely < 50 Years: > 450 pg/mL 50-75 Years: > 900 pg/mL >75 Years: > 1800 pg/mL Performed By: #### L 503.7505 #### [facility] [address] [place], [address] L509.6002on 11-15-2024 CORTISOL 20.80 ug/dL High 2.68-10.50 [facility] Comment on above: Performed By: #### L 500.2500, L300.3900, L501.5200, L500.4100, L100.0100 #### [facility] [address] [place], [address] MCV (mean corpuscular volume ) determinationOrdered By: Dina Guzmán on 11-15-2024 MCV (RBC) [Entitic vol] 89.1 fL 80-94 [facility] Mean corpuscular hemoglobin (MCH) determinationOrdered By: Dina Guzmán on 11-15-2024 MCH (RBC) [Entitic mass] 29.1 pg 27.0-32.0 [facility] Mean corpuscular hemoglobin concentration (MCHC) determinationOrdered By: Dina Guzmán on 11-15-2024 MCHC (RBC) [Mass/Vol] 32.6 g/dL 32-36 [facility] Mean platelet volume determi nationOrdered By: Dina Guzmán on 11-15-2024 Platelet mean volume (Bld) [Entitic vol] 9.5 fL 6.2-12.0 [facility] Microscopic analysis of urin e for red blood cells (RBC)Ordered By: Dina Guzmán on 11-15-2024 Microscopic analysis of urine for red blood cells (RBC) 0 SEEN /hpf 0-5 [facility] Monocyte percentageOrdered B y: Dina Guzmán on 11-15-2024 Monocytes/100 WBC (Bld) 13.6 % High 0-10 [facility] Mucus LM Ql (Urine sed)Order ed By: Dina Guzmán on 11-15-2024 Mucus Ql (Urine sed) 0 SEEN /hpf [facility] Natriuretic peptide.B prohor ernestine N-Terminal [Mass/volume] in Serum or PlasmaOrdered By: Shannan Patterson on 11-15-2024 Natriuretic peptide.B prohormone N-Terminal [Mass/Vol] 2964 pg/mL High <1800 [facility] Comment on above: Heart Failure Unlike ly: < 300 pg/mLHeart Failure Likely< 50 Years: > 450 pg/mL50-75 Years: > 900 pg/mL>75 Years: > 1800 pg/mL Neutrophil percentageOrdered By: Dina Guzmán on 11-15-2024 Neutrophils/100 WBC (Bld) 78.3 % High 47-70 [facility] Nitrite Test strip Ql (U)Ord ered By: Dina Guzmán on 11-15-2024 Nitrite Ql (U) Negative Negative [facility] Nucleated red blood cell per centageOrdered By: Dina Guzmán on 11-15-2024 Nucleated RBC/100 WBC (Bld) [Ratio] 0 % 0-5 [facility] Organism identificationOrder ed By: Shannan Patterson on 11-15-2024 Microorganism identified Cx Nom (Unsp spec) Strep anginosus Abnormal [facility] Osmolality urOrdered By: Radha Patterson on 11-15-2024 Osmolality (U) [Osmolality] 670 mOsm/KG >50 [facility] Comment on above: Normal Urine Referen ce Ranges Random: 50 - 1200 mOsm/kg H20 depending on fluid intake Random: >850 mOsm/kg after 12 hour fluid restriction 24 hour: ~300 - 900 mOsm/kg H2O Osmolality, Serumon 11-16-19 25 OSMOLALITY,SER 278 mOsm/KG Low 280-301 [facility] Comment on above: Performed By: #### L 500.2500, L300.3900, L501.5200, L500.4100, L100.0100 #### [facility] [address] [place], [address] Osmolality, Urineon 11-16-19 25 OSMOLALITY,UR 670 mOsm/KG Normal [facility] Comment on above: Result Comment: Normal Urine Reference Ranges Random: 50 - 1200 mOsm/kg H20 depending on fluid intake Random: >850 mOsm/kg after 12 hour fluid restriction 24 hour: 300 - 900 mOsm/kg H2O Performed By: #### L 500.2500, L300.3900, L501.5200, L500.4100, L100.0100 #### [facility] [address] [place], [place], [address] OSMOLALITY,UR 670 mOsm/KG Normal [facility] Comment on above: Result Comment: Normal Urine Reference Ranges Random: 50 - 1200 mOsm/kg H20 depending on fluid intake Random: >850 mOsm/kg after 12 hour fluid restriction 24 hour: 300 - 900 mOsm/kg H2O Performed By: #### L 500.2500, L300.3900, L501.5200, L500.4100, L100.0100 #### [facility] [address] [place], [place], [id number] Platelet countOrdered By: Colleen Guzmán on 11-15-2024 Platelets (Bld) [#/Vol] 237 10*3/uL 150-450 [facility] Potassium measurement (mass/ volume)Ordered By: Dina Guzmán on 11-15-2024 Potassium (Unsp spec) [Mass/Vol] 4.4 mmol/L 3.3-5.1 [facility] Comment on above: Hemolysis present, R esults could be affected. Protein Test strip Ql (U)Ord ered By: Dina Guzmán on 11-15-2024 Protein Ql (U) 30 mg/dl High Negative [facility] RBC Auto (Bld) [#/Vol]Ordere d By: Dina Guzmán on 11-15-2024 RBC (Bld) [#/Vol] 4.30 10*6/uL Low 4.6-6.2 [facility] Random urine creatinine maikel urement (mass/volume)Ordered By: Shannan Patterson on 11-15-2024 Creatinine Unsp time (U) [Mass/Vol] 121.00 mg/dL 39.00-259. 00 [facility] Serum creatinine measurement (mass/volume)Ordered By: Dina Guzmán on 11-15-2024 Creatinine [Mass/Vol] 0.79 mg/dL 0.70-1.20 [facility] Serum glucose measurement (m ass/volume)Ordered By: Dina Guzmán on 11-15-2024 Glucose [Mass/Vol] 86 mg/dL 70-99 [facility] Serum or plasma calcium maikel urement (mass/volume)Ordered By: Dina Guzmán on 11-15-2024 Calcium [Mass/Vol] 8.9 mg/dL 7.6-11.0 [facility] Serum or plasma cortisol bianka surement (mass/volume)Ordered By: Chetan Mata on 11-15-2024 Cortisol [Mass/Vol] 20.80 ug/dL High 2.68-10.50 [facility] Serum or plasma urea nitroge n measurement (mass/volume)Ordered By: Dina Guzmán on 11-15-2024 Urea nitrogen [Mass/Vol] 20 mg/dL High 4-19 [facility] Sodium levelOrdered By: Dina Guzmán on 11-15-2024 Sodium [Moles/Vol] 126 mmol/L Low 133-145 [facility] Squamous epithelial cells de tection in urine sediment by light microscopyOrdered By: Dina Guzmán on 11-15-2024 Epithelial cells.squamous LM Ql (Urine sed) 0 SEEN /hpf 0-5 [facility] TSH DL <= 0.005 mIU/L QnOrde red By: Chetan Mata on 11-15-2024 TSH Qn 0.479 uIU/mL 0.300-4.20 0 [facility] Thyroid Stim Hormone (TSH)on 11-15-2024 TSH 0.479 uIU/mL Normal 0.300-4.20 0 [facility] Comment on above: Performed By: #### L 500.2500, L300.3900, L501.5200, L500.4100, L100.0100 #### [facility] [address] [place], [address] Urea Nitrogen, Urineon 11-15 URINE UREA 1156 mg/dL Normal NO RANGE EST. [facility] Comment on above: Performed By: #### L 500.2500, L300.3900, L501.5200, L500.4100, L100.0100 #### [facility] [address] [place], [address] Urinalysis, Completeon 11-15 BACTERIA 0 SEEN Normal None Seen [facility] Comment on above: Order Comment: COLLE CTOR TO SPECIFY Performed By: #### L 500.2500, L300.3900, L501.5200, L500.4100, L100.0100 #### [facility] [address] [place], [address] EPI,SQUAMOUS 0 SEEN Normal 0-5 [facility] Comment on above: Order Comment: COLLE CTOR TO SPECIFY Performed By: #### L 500.2500, L300.3900, L501.5200, L500.4100, L100.0100 #### [facility] [address] [place], [address] Mucus Ql (Urine sed) 0 SEEN Normal [facility] Comment on above: Order Comment: COLLE CTOR TO SPECIFY Performed By: #### L 500.2500, L300.3900, L501.5200, L500.4100, L100.0100 #### [facility] [address] [place], [address] RBC 0 SEEN Normal 0-5 [facility] Comment on above: Order Comment: COLLE CTOR TO SPECIFY Performed By: #### L 500.2500, L300.3900, L501.5200, L500.4100, L100.0100 #### [facility] [address] [place], [address] WBC 0 SEEN Normal [address] [place] [address] Comment on above: Order Comment: COLLE CTOR TO SPECIFY Performed By: #### L 500.2500, L300.3900, L501.5200, L500.4100, L100.0100 #### [facility] [address] [place], [address] Urine Chlorideon 11-15-2024 Chloride,URINE < 20 Normal Not Establ. [facility] Comment on above: Performed By: #### L 500.2500, L300.3900, L501.5200, L500.4100, L100.0100 #### [facility] [address] [place], [address] Urine Electrolytes- Randomon 11-15-2024 Chloride,URINE < 20 Normal Not Establ. [facility] Comment on above: Performed By: #### L 500.2500, L300.3900, L501.5200, L500.4100, L100.0100 #### [facility] [address] [place], [address] Sodium (U) [Moles/Vol] 68 mmol/L Normal Not Establ. [facility] Comment on above: Performed By: #### L 500.2500, L300.3900, L501.5200, L500.4100, L100.0100 #### [facility] [address] [place], [address] UR K 47.2 mmol/L Normal Not Establ. [facility] Comment on above: Performed By: #### L 500.2500, L300.3900, L501.5200, L500.4100, L100.0100 #### [facility] [address] [place], [address] Urine Sodiumon 11-15-2024 Sodium (U) [Moles/Vol] 67 mmol/L Normal Not Establ. [facility] Comment on above: Performed By: #### L 500.2500, L300.3900, L501.5200, L500.4100, L100.0100 #### [facility] [address] [place], [address] Urine clarityOrdered By: Carola Guzmán on 11-15-2024 Clarity (U) Clear Clear [facility] Urine color determinationOrd ered By: Dina Guzmán on 11-15-2024 Color (U) Yellow Yellow [facility] Urine glucose detectionOrder ed By: Dina Guzmán on 11-15-2024 Glucose Ql (U) Normal mg/dl Normal [facility] Urine leukocyte esterase det ection by dipstickOrdered By: Dina Guzmán on 11-15-2024 Leukocyte esterase Test strip Ql (U) 25 /ul High Negative [facility] Urine pHOrdered By: Dina bennett on 11-15-2024 pH (U) 7.0 [pH] 5.0 - 8.0 [facility] Urine potassium measurement (moles/volume)Ordered By: Shannan Patterson on 11-15-2024 Potassium (U) [Moles/Vol] 47.2 mmol/L Not Establ. [facility] Urine sediment bacteria coun t by microscopy (number/high power field)Ordered By: Dina Guzmán on 11-15-2024 Bacteria LM.HPF (Urine sed) [#/Area] 0 /[HPF] None Seen [facility] Urine sodium measurement (mo les/volume)Ordered By: Shannan Patterson on 11-15-2024 Sodium (U) [Moles/Vol] 68 mmol/L Not Establ. [facility] Urine specific gravity measu rementOrdered By: Dina Guzmán on 11-15-2024 Specific gravity (U) [Rel density] 1.010 1.002-1.03 0 [facility] Urine urobilinogen measureme ntOrdered By: Dina Guzmán on 11-15-2024 Urobilinogen Ql (U) 4 mg/dl High Normal [facility] White blood cell (WBC) count Ordered By: Dina Guzmán on 11-15-2024 WBC (Bld) [#/Vol] 10.5 10*3/uL 4.4-11.0 [facility] White blood cell countOrdere d By: Dina Guzmán on 11-15-2024 White blood cell count 0 SEEN /hpf 0-5 [facility] 36on 11-14-2024 36 S: Patient caregiver Dina spoke with [facility] nurse regarding abdominal pain and leg weakness [...] able to talk him into going to [place] [facility] so he can get a head scan and urine tested. Advised I would put in the information to the ER for today at [facility] ED. Patient caregiver advised to call back with any new or worsening symptoms. Reason for Disposition Unable to walk [1] SEVERE weakness (i.e., unable to walk or barely able to walk, requires support) AND [2] new-onset or getting worse Protocols used: Leg Wmhz-KJHCP-XH, Neurologic Ohrbrzr-QGKSU-OU Normal [facility] XR FEMUR LEFT 2+ VIEWSon XR FEMUR LEFT 2+ VIEWS Interpreted By: Sushil Pichardo, STUDY: XR PELVIS 1-2 VIEWS; XR FEMUR LEFT 2+ VIEWS INDICATION: Signs/Symptoms:pain. COMPARISON: February 18 ACCESSION NUMBER(S): [id number]; [id number] ORDERING CLINICIAN: KATIANA BRAGG FINDINGS: Bilateral total hip arthroplasties are noted. Postsurgical changes status post ORIF of the left periprosthetic femoral fracture with a lateral plate. The femoral arthroplasty component normal without malalignment or new lucency. No evidence of complication. 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 Signed by: Sushil Mcclellan 04/17/2024 11:38 AM Dictation workstation: [id number] [facility] XR PELVIS 1-2 VIEWSon 2023 XR PELVIS 1-2 VIEWS Interpreted By: Sushil Harris, STUDY: XR PELVIS 1-2 VIEWS; XR FEMUR LEFT 2+ VIEWS INDICATION: Signs/Symptoms:pain. COMPARISON: February 18 ACCESSION NUMBER(S): [id number]; [id number] ORDERING CLINICIAN: KATIANA BRAGG FINDINGS: Bilateral total hip arthroplasties are noted. Postsurgical changes status post ORIF of the left periprosthetic femoral fracture with a lateral plate. The femoral arthroplasty component normal without malalignment or new lucency. No evidence of complication. 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 Signed by: Sushil Mcclellan 04/17/2024 11:38 AM Dictation workstation: [id number] [facility] No Panel Informationon 02-19 Interpreted By: Mary White ud, STUDY: XR FEMUR LEFT 2+ VIEWS; XR PELVIS 1-2 VIEWS; 02/19/2024 3:20 pm INDICATION: Signs/Symptoms:post-op. COMPARISON: 01/27/2024 ACCESSION NUMBER(S): [id number]; [id number] ORDERING CLINICIAN: KATIANA BRAGG FINDINGS: Status post [...] Mary Agustin 02/20/2024 7:44 PM Dictation workstation: [id number] Alaina Gavin MD - 02/20/2024 Interpreted By: Mary Agustin, STUDY: XR FEMUR LEFT 2+ VIEWS; XR PELVIS 1-2 VIEWS; 02/19/2024 3:20 pm INDICATION: Signs/Symptoms:post-op. COMPARISON: 01/27/2024 ACCESSION NUMBER(S): [id number]; [id number] ORDERING CLINICIAN: KATIANA BRAGG FINDINGS: Status post [...] Mary Agustin 02/20/2024 7:44 PM Dictation workstation: [id number] [facility] Work Phone: No Panel InformationOrdered By: Alaina Agustin on 02-20-2024 [facility] Work Phone: No Panel Informationon 02-18 Radiology Study observation (narrative) [facility] Work Phone: XR FEMUR LEFT 2+ VIEWSon XR FEMUR LEFT 2+ VIEWS Interpreted By: Mary Kathleen, STUDY: XR FEMUR LEFT 2+ VIEWS; XR PELVIS 1-2 VIEWS; 02/19/2024 3:20 pm INDICATION: Signs/Symptoms:post-op. COMPARISON: 01/27/2024 ACCESSION NUMBER(S): [id number]; [id number] ORDERING CLINICIAN: KATIANA BRAGG FINDINGS: Status post [...] Mary Agustin 02/20/2024 7:44 PM Dictation workstation: [id number] [facility] XR PELVIS 1-2 VIEWSon 2023 XR PELVIS 1-2 VIEWS Interpreted By: Mary White ud, STUDY: XR FEMUR LEFT 2+ VIEWS; XR PELVIS 1-2 VIEWS; 02/19/2024 3:20 pm INDICATION: Signs/Symptoms:post-op. COMPARISON: 01/27/2024 ACCESSION NUMBER(S): [id number]; [id number] ORDERING CLINICIAN: KATIANA BRAGG FINDINGS: Status post [...] Mary Agustin 02/20/2024 7:44 PM Dictation workstation: [id number] [facility] Comment on above: Order Comment: WB AP pelvis CBC panel Auto (Bld)on 01-30 Erythrocyte distribution width (RBC) [Ratio] 13.0 % 11.5 - 14.5 % [facility] Hematocrit (Bld) [Volume fraction] 30.4 % Low 41.0 - 52.0 % [facility] Hemoglobin (Bld) [Mass/Vol] 9.9 g/dL Low 13.5 - 17.5 g/dL [facility] Interpretation and review of laboratory results Abnormal [facility] MCH (RBC) [Entitic mass] 29.1 pg 26.0 - 34.0 pg [facility] MCHC (RBC) [Mass/Vol] 32.6 g/dL 32.0 - 36.0 g/dL [facility] MCV (RBC) [Entitic vol] 89 fL 80 - 100 fL [facility] Nucleated RBC/100 WBC (Bld) [Ratio] 0.0 % [facility] Platelets (Bld) [#/Vol] 236 10*3/uL [facility] RBC (Bld) [#/Vol] 3.40 10*6/uL Low [facility] WBC (Bld) [#/Vol] 5.9 10*3/uL [facility] Erythrocyte distribution width (RBC) [Ratio] 13.0 % Normal 11.5-14.5 [facility] Comment on above: Performed By: #### V ERAB #### CARIN Webb ([id number]) [facility] ([facility]) [address] [place] [address] Hematocrit (Bld) [Volume fraction] 30.4 % Low 41.0-52.0 [facility] Comment on above: Performed By: #### V ERAB #### CARIN Webb ([id number]) [facility] ([facility]) [address] [place] [address] Hemoglobin (Bld) [Mass/Vol] 9.9 g/dL Low 13.5-17.5 [facility] Comment on above: Performed By: #### V ERAB #### CARIN Webb ([id number]) [facility] ([facility]) [address] [place] [address] MCH (RBC) [Entitic mass] 29.1 pg Normal 26.0-34.0 [facility] Comment on above: Performed By: #### V ERAB #### CARIN Webb ([id number]) [facility] ([facility]) [address] [place] [address] MCHC (RBC) [Mass/Vol] 32.6 g/dL Normal 32.0-36.0 [facility] Comment on above: Performed By: #### V ERAB #### CARIN Webb ([id number]) [facility] ([facility]) [address] [place] [address] MCV (RBC) [Entitic vol] 89 fL Normal 80-100 [facility] Comment on above: Performed By: #### V ERAB #### CARIN Webb ([id number]) [facility] ([facility]) [address] [place] [address] Nucleated RBC/100 WBC (Bld) [Ratio] 0.0 /100 WBCs Normal 0.0-0.0 [facility] Comment on above: Performed By: #### Marybeth ERAB #### CARIN Webb ([id number]) [facility] ([facility]) [address] [place] [address] Platelets (Bld) [#/Vol] 236 x10*3/uL Normal 150-450 [facility] Comment on above: Performed By: #### Marybeth ERAB #### CARIN Webb ([id number]) [facility] ([facility]) [address] [place] [address] RBC (Bld) [#/Vol] 3.40 x10*6/uL Low 4.50-5.90 [facility] Comment on above: Performed By: #### Marybeth ERAB #### CARIN Webb ([id number]) [facility] ([facility]) [address] [place] [address] WBC (Bld) [#/Vol] 5.9 x10*3/uL Normal 4.4-11.3 [facility] Comment on above: Performed By: #### Marybeth ERAB #### ACRIN Webb ([id number]) [facility] ([facility]) [address] [place] [address] 25-hydroxyvitamin D3 [Mass/V ol]on 01-30-2024 Deficiency: < 20 ng /ml Insufficiency: 20-29 ng/ml Sufficiency: 30-100 ng/ml This assay accurately quantifies the sum of Vitamin D3, 25-Hydroxy and Vitamin D2,25-Hydroxy. [facility] Blood type and Indirect anti body screen panel (Bld)on 01-30-2024 ABO group Nom (Bld) A [facility] Blood group antibody screen Ql Negative [facility] D Ag Ql (Bld) Positive [facility] ABO group Nom (Bld) A Normal [facility] Comment on above: Performed By: #### V ERAB #### CARIN Webb ([id number]) [facility] ([facility]) [address] [place] [address] Blood group antibody screen Ql Negative [facility] Comment on above: Performed By: #### V ERAB #### CARIN Webb ([id number]) [facility] ([facility]) [address] [place] [address] D Ag Ql (Bld) Positive [facility] Comment on above: Performed By: #### V ERAB #### CARIN Webb ([id number]) [facility] [facility] [address] [place] [address] CBC panel Auto (Bld)on 01-29 Erythrocyte distribution width (RBC) [Ratio] 13.1 % 11.5 - 14.5 % [facility] Hematocrit (Bld) [Volume fraction] 29.9 % Low 41.0 - 52.0 % [facility] Hemoglobin (Bld) [Mass/Vol] 9.8 g/dL Low 13.5 - 17.5 g/dL [facility] Interpretation and review of laboratory results Abnormal [facility] MCH (RBC) [Entitic mass] 29.1 pg 26.0 - 34.0 pg [facility] MCHC (RBC) [Mass/Vol] 32.8 g/dL 32.0 - 36.0 g/dL [facility] MCV (RBC) [Entitic vol] 89 fL 80 - 100 fL [facility] Nucleated RBC/100 WBC (Bld) [Ratio] 0.0 % [facility] Platelets (Bld) [#/Vol] 219 10*3/uL [facility] RBC (Bld) [#/Vol] 3.37 10*6/uL Low [facility] WBC (Bld) [#/Vol] 5.7 10*3/uL [facility] Erythrocyte distribution width (RBC) [Ratio] 13.1 % Normal 11.5-14.5 [facility] Comment on above: Performed By: #### V ERAB #### CARIN Webb ([id number]) [facility] ([facility]) [address] [place] [address] Hematocrit (Bld) [Volume fraction] 29.9 % Low 41.0-52.0 [facility] Comment on above: Performed By: #### V ERAB #### CARIN Webb ([id number]) [facility] ([facility]) [address] [place] [address] Hemoglobin (Bld) [Mass/Vol] 9.8 g/dL Low 13.5-17.5 [facility] Comment on above: Performed By: #### Marybeth ERAB #### CARIN Webb ([id number]) [facility] ([facility]) [address] [place] [address] MCH (RBC) [Entitic mass] 29.1 pg Normal 26.0-34.0 [facility] Comment on above: Performed By: #### Marybeth ERAB #### CARIN Webb ([id number]) [facility] ([facility]) [address] [place] [address] MCHC (RBC) [Mass/Vol] 32.8 g/dL Normal 32.0-36.0 [facility] Comment on above: Performed By: #### V ERAB #### CARIN Webb ([id number]) [facility] ([facility]) [address] [place] [address] MCV (RBC) [Entitic vol] 89 fL Normal 80-100 [facility] Comment on above: Performed By: #### Marybeth ERAB #### CARIN Webb ([id number]) [facility] ([facility]) [address] [place] [address] Nucleated RBC/100 WBC (Bld) [Ratio] 0.0 /100 WBCs Normal 0.0-0.0 [facility] Comment on above: Performed By: #### V ERAB #### CARIN Webb ([id number]) [facility] ([facility]) [address] [place] [address] Platelets (Bld) [#/Vol] 219 x10*3/uL Normal 150-450 [facility] Comment on above: Performed By: #### V ERAB #### CARIN Webb ([id number]) [facility] ([facility]) [address] [place] [address] RBC (Bld) [#/Vol] 3.37 x10*6/uL Low 4.50-5.90 [facility] Comment on above: Performed By: #### V ERAB #### CARIN Webb ([id number]) [facility] ([facility]) [address] [place] [address] WBC (Bld) [#/Vol] 5.7 x10*3/uL Normal 4.4-11.3 [facility] Comment on above: Performed By: #### V ERAB #### CARIN Webb ([id number]) [facility] ([facility]) [address] [place] [address] Calcidiolon 01-30-2024 25-hydroxyvitamin D3 [Mass/Vol] 33 ng/mL Normal 30-100 [facility] Comment on above: Order Comment: Thi s is for confirming/verifying history of ABORh on file for transfusion of blood products. If this is not for transfusion, please order an ABO/RH [[id number]]. If you have any questions or unsure what to order, please call the blood bank. Performed By: #### V ERAB #### CARIN Webb ([id number]) [facility] ([facility]) [address] [place] [address] Cobalaminson 01-30-2024 Cobalamin (Vitamin B12) [Mass/Vol] 468 pg/mL Normal 211-911 [facility] Comment on above: Performed By: #### V ERAB #### CARIN Webb ([id number]) [facility] ([facility]) [address] [place] [address] No Panel Informationon 01-29 Interpretation and review of laboratory results Normal [facility] Renal function 2000 panelon 01-30-2024 Albumin BCP dye [Mass/Vol] 3.0 g/dL Low 3.4 - 5.0 g/dL [facility] Anion gap [Moles/Vol] 9 mmol/L Low 10 - 2 0 mmol/L [facility] Calcium [Mass/Vol] 8.5 mg/dL Low 8.6 - 10. 6 mg/dL [facility] Chloride [Moles/Vol] 99 mmol/L 98 - 10 7 mmol/L [facility] CO2 [Moles/Vol] 28 mmol/L 21 - 32 mmol/L [facility] Creatinine [Mass/Vol] 0.64 mg/dL 0.50 - 1.30 mg/dL [facility] eGFR - PINF [facility] Comment on above: Calculations of sebastien mated GFR are performed using the 2020 CKD-EPI Study Refit equation without the race variable for the IDMS-Traceable creatinine methods. https://jasn.asnjournals.org/content/early//ASN.46574 64220 Glucose [Mass/Vol] 94 mg/dL 74 - 99 mg/dL [facility] Interpretation and review of laboratory results Abnormal [facility] Phosphate [Mass/Vol] 2.9 mg/dL 2.5 - 4 .9 mg/dL [facility] Comment on above: The performance tripp acteristics of phosphorus testing in heparinized plasma have been validated by the individual laboratory site where testing is performed. Testing on heparinized plasma is not approved by the FDA; however, such approval is not necessary. Potassium [Moles/Vol] 4.3 mmol/L 3.5 - 5.3 mmol/L [facility] Sodium [Moles/Vol] 132 mmol/L Low 136 - 145 mmol/L [facility] Urea nitrogen [Mass/Vol] 15 mg/dL 6 - 23 mg/dL [facility] Albumin BCP dye [Mass/Vol] 3.0 g/dL Low 3.4-5.0 [facility] Comment on above: Performed By: #### V ERAB #### CARIN Webb ([id number]) [facility] ([facility]) [address] [place] [address] Anion gap [Moles/Vol] 9 mmol/L Low 10-20 [facility] Comment on above: Performed By: #### V ERAB #### CARIN Webb ([id number]) [facility] ([facility]) [address] [place] [address] Calcium [Mass/Vol] 8.5 mg/dL Low 8.6-10.6 [facility] Comment on above: Performed By: #### V ERAB #### CARIN Webb ([id number]) [facility] ([facility]) [address] [place] [address] Chloride [Moles/Vol] 99 mmol/L Normal 98-107 [facility] Comment on above: Performed By: #### V ERAB #### CARIN Webb ([id number]) [facility] ([facility]) [address] [place] [address] CO2 [Moles/Vol] 28 mmol/L Normal 21-32 [facility] Comment on above: Performed By: #### V ERAB #### CARIN Webb ([id number]) [facility] ([facility]) [address] [place] [address] Creatinine [Mass/Vol] 0.64 mg/dL Normal 0.50-1.30 [facility] Comment on above: Performed By: #### V ERAB #### CARIN Webb ([id number]) [facility] ([facility]) [address] [place] [address] GFR/1.73 sq M.predicted MDRD (S/P/Bld) [Vol rate/Area] mL/min/{1.73_m2} Normal >60 [facility] Comment on above: Result Comment: Calc ulations of estimated GFR are performed using the 2020 CKD-EPI Study Refit equation without the race variable for the IDMS-Traceable creatinine methods. https://jasn.asnjournals.org/content/early//ASN.52776 54070 Performed By: #### V ERAB #### CARIN Webb ([id number]) [facility] ([facility]) [address] [place] [address] Glucose [Mass/Vol] 94 mg/dL Normal 74-99 [facility] Comment on above: Performed By: #### V ERAB #### CARIN Webb ([id number]) [facility] ([facility]) [address] [place] [address] Phosphate [Mass/Vol] 2.9 mg/dL Normal 2.5-4.9 [facility] Comment on above: Result Comment: The performance characteristics of phosphorus testing in heparinized plasma have been validated by the individual laboratory site where testing is performed. Testing on heparinized plasma is not approved by the FDA; however, such approval is not necessary. Performed By: #### V ERAB #### CARIN Webb ([id number]) [facility] ([facility]) [address] [place] [address] Potassium [Moles/Vol] 4.3 mmol/L Normal 3.5-5.3 [facility] Comment on above: Performed By: #### V ERAB #### CARIN Webb ([id number]) [facility] ([facility]) [address] [place] [address] Sodium [Moles/Vol] 132 mmol/L Low 136-145 [facility] Comment on above: Performed By: #### V ERAB #### CARIN Webb ([id number]) [facility] ([facility]) [address] [place] [address] Urea nitrogen [Mass/Vol] 15 mg/dL Normal 6-23 [facility] Comment on above: Performed By: #### V ERAB #### CARIN Webb ([id number]) [facility] ([facility]) [address] [place] [address] TSHon 09-19-2024 TSH Qn 0.66 m[IU]/L [facility] TSH Qnon 01-30-2024 Interpretation and review of laboratory results Normal [facility] TSH testing is perfo rmed using different testing methodology at [facility] than at other [facility]. Direct result comparisons should only be made within the same method. [facility] Thyrotropinon 01-30-2024 TSH Qn 0.66 m[IU]/L Normal 0.44-3.98 [facility] Comment on above: Order Comment: Thi s is for confirming/verifying history of ABORh on file for transfusion of blood products. If this is not for transfusion, please order an ABO/RH [[id number]]. If you have any questions or unsure what to order, please call the blood bank. Performed By: #### V ERAB #### CARIN Webb ([id number]) [facility] [address] [place] [address] Vitamin B12on 01-30-2024 Cobalamin (Vitamin B12) [Mass/Vol] 468 pg/mL 211 - 911 pg/mL [facility] Vitamin D 25-Hydroxy,Total ( for eval of Vitamin D levels)on 01-30-2024 25-hydroxyvitamin D3 [Mass/Vol] 33 ng/mL 30 - 100 ng/mL [facility] CBC panel Auto (Bld)on 01-28 Erythrocyte distribution width (RBC) [Ratio] 13.2 % 11.5 - 14.5 % [facility] Hematocrit (Bld) [Volume fraction] 28.2 % Low 41.0 - 52.0 % [facility] Hemoglobin (Bld) [Mass/Vol] 9.3 g/dL Low 13.5 - 17.5 g/dL [facility] Interpretation and review of laboratory results Abnormal [facility] MCH (RBC) [Entitic mass] 29.6 pg 26.0 - 34.0 pg [facility] MCHC (RBC) [Mass/Vol] 33.0 g/dL 32.0 - 36.0 g/dL [facility] MCV (RBC) [Entitic vol] 90 fL 80 - 100 fL [facility] Nucleated RBC/100 WBC (Bld) [Ratio] 0.0 % [facility] Platelets (Bld) [#/Vol] 179 10*3/uL [facility] RBC (Bld) [#/Vol] 3.14 10*6/uL Low [facility] WBC (Bld) [#/Vol] 7.0 10*3/uL [facility] Erythrocyte distribution width (RBC) [Ratio] 13.2 % Normal 11.5-14.5 [facility] Comment on above: Performed By: #### V ERAB #### CARIN Webb ([id number]) [facility] ([facility]) [address] [place] [address] Hematocrit (Bld) [Volume fraction] 28.2 % Low 41.0-52.0 [facility] Comment on above: Performed By: #### V ERAB #### CARIN Webb ([id number]) [facility] ([facility]) [address] [place] [address] Hemoglobin (Bld) [Mass/Vol] 9.3 g/dL Low 13.5-17.5 [facility] Comment on above: Performed By: #### V ERAB #### CARIN Webb ([id number]) [facility] ([facility]) [address] [place] [address] MCH (RBC) [Entitic mass] 29.6 pg Normal 26.0-34.0 [facility] Comment on above: Performed By: #### V ERAB #### CARIN Webb ([id number]) [facility] ([facility]) [address] [place] [address] MCHC (RBC) [Mass/Vol] 33.0 g/dL Normal 32.0-36.0 [facility] Comment on above: Performed By: #### V ERAB #### CARIN Webb ([id number]) [facility] ([facility]) [address] [place] [address] MCV (RBC) [Entitic vol] 90 fL Normal 80-100 [facility] Comment on above: Performed By: #### Marybeth ERAB #### CARIN Webb ([id number]) [facility] ([facility]) [address] [place] [address] Nucleated RBC/100 WBC (Bld) [Ratio] 0.0 /100 WBCs Normal 0.0-0.0 [facility] Comment on above: Performed By: #### Marybeth ERAB #### CARIN Webb ([id number]) [facility] ([facility]) [address] [place] [address] Platelets (Bld) [#/Vol] 179 x10*3/uL Normal 150-450 [facility] Comment on above: Performed By: #### Marybeth ERAB #### CARIN Webb ([id number]) [facility] ([facility]) [address] [place] [address] RBC (Bld) [#/Vol] 3.14 x10*6/uL Low 4.50-5.90 [facility] Comment on above: Performed By: #### Marybeth ERAB #### CARIN Webb ([id number]) [facility] ([facility]) [address] [place] [address] WBC (Bld) [#/Vol] 7.0 x10*3/uL Normal 4.4-11.3 [facility] Comment on above: Performed By: #### Marybeth ERAB #### CARIN Webb ([id number]) [facility] ([facility]) [address] [place] [address] Renal function 2000 panelon 01-29-2024 Albumin BCP dye [Mass/Vol] 3.3 g/dL Low 3.4 - 5.0 g/dL [facility] Anion gap [Moles/Vol] 12 mmol/L 10 - 2 0 mmol/L [facility] Calcium [Mass/Vol] 8.6 mg/dL 8.6 - 10. 6 mg/dL [facility] Chloride [Moles/Vol] 97 mmol/L Low 98 - 10 7 mmol/L [facility] CO2 [Moles/Vol] 27 mmol/L 21 - 32 mmol/L [facility] Creatinine [Mass/Vol] 0.95 mg/dL 0.50 - 1.30 mg/dL [facility] GFR/1.73 sq M.predicted among non-blacks MDRD (S/P/Bld) [Vol rate/Area] 79 mL/min/{1.73_m2} - PINF [facility] Comment on above: Calculations of sebastien mated GFR are performed using the 2020 CKD-EPI Study Refit equation without the race variable for the IDMS-Traceable creatinine methods. https://jasn.asnjournals.org/content//ASN.51571 55838 Glucose [Mass/Vol] 102 mg/dL High 74 - 99 mg/dL [facility] Interpretation and review of laboratory results Abnormal [facility] Phosphate [Mass/Vol] 2.9 mg/dL 2.5 - 4 .9 mg/dL [facility] Comment on above: The performance tripp acteristics of phosphorus testing in heparinized plasma have been validated by the individual laboratory site where testing is performed. Testing on heparinized plasma is not approved by the FDA; however, such approval is not necessary. Potassium [Moles/Vol] 4.5 mmol/L 3.5 - 5.3 mmol/L [facility] Sodium [Moles/Vol] 131 mmol/L Low 136 - 145 mmol/L [facility] Urea nitrogen [Mass/Vol] 18 mg/dL 6 - 23 mg/dL [facility] Albumin BCP dye [Mass/Vol] 3.3 g/dL Low 3.4-5.0 [facility] Comment on above: Performed By: #### V ERAB #### CARIN Webb ([id number]) [facility] ([facility]) [address] [place] [address] Anion gap [Moles/Vol] 12 mmol/L Normal 10-20 [facility] Comment on above: Performed By: #### V ERAB #### CARIN Webb ([id number]) [facility] ([facility]) [address] [place] [address] Calcium [Mass/Vol] 8.6 mg/dL Normal 8.6-10.6 [facility] Comment on above: Performed By: #### V ERAB #### CARIN Webb ([id number]) [facility] ([facility]) [address] [place] [address] Chloride [Moles/Vol] 97 mmol/L Low 98-107 [facility] Comment on above: Performed By: #### V ERAB #### CARIN Webb ([id number]) [facility] ([facility]) [address] [place] [address] CO2 [Moles/Vol] 27 mmol/L Normal 21-32 [facility] Comment on above: Performed By: #### V ERAB #### CARIN Webb ([id number]) [facility] ([facility]) [address] [place] [address] Creatinine [Mass/Vol] 0.95 mg/dL Normal 0.50-1.30 [facility] Comment on above: Performed By: #### V ERAB #### CARIN Webb ([id number]) [facility] ([facility]) [address] [place] [address] Glomerular filtration rate/1.73 sq M.predicted 79 mL/min/1.73m*2 Normal >60 [facility] Comment on above: Result Comment: Calc ulations of estimated GFR are performed using the 2020 CKD-EPI Study Refit equation without the race variable for the IDMS-Traceable creatinine methods. https://jasn.asnjournals.org/content//ASN.22813 58974 Performed By: #### V ERAB #### CARIN Webb ([id number]) [facility] ([facility]) [address] [place] [address] Glucose [Mass/Vol] 102 mg/dL High 74-99 [facility] Comment on above: Performed By: #### V ERAB #### CARIN Webb ([id number]) [facility] ([facility]) [address] [place] [address] Phosphate [Mass/Vol] 2.9 mg/dL Normal 2.5-4.9 [facility] Comment on above: Result Comment: The performance characteristics of phosphorus testing in heparinized plasma have been validated by the individual laboratory site where testing is performed. Testing on heparinized plasma is not approved by the FDA; however, such approval is not necessary. Performed By: #### V ERAB #### CARIN Webb ([id number]) [facility] ([facility]) [address] [place] [address] Potassium [Moles/Vol] 4.5 mmol/L Normal 3.5-5.3 [facility] Comment on above: Performed By: #### V ERAB #### CARIN Webb ([id number]) [facility] ([facility]) [address] [place] [address] Sodium [Moles/Vol] 131 mmol/L Low 136-145 [facility] Comment on above: Performed By: #### V ERAB #### CARIN Webb ([id number]) [facility] ([facility]) [address] [place] [address] Urea nitrogen [Mass/Vol] 18 mg/dL Normal 6-23 [facility] Comment on above: Performed By: #### V ERAB #### CARIN Webb ([id number]) [facility] ([facility]) [address] [place] [address] CBC panel Auto (Bld)on 01-27 Erythrocyte distribution width (RBC) [Ratio] 13.2 % 11.5 - 14.5 % [facility] Hematocrit (Bld) [Volume fraction] 35.8 % Low 41.0 - 52.0 % [facility] Hemoglobin (Bld) [Mass/Vol] 10.7 g/dL Low 13.5 - 17.5 g/dL [facility] Interpretation and review of laboratory results Abnormal [facility] MCH (RBC) [Entitic mass] 29.3 pg 26.0 - 34.0 pg [facility] MCHC (RBC) [Mass/Vol] 29.9 g/dL Low 32.0 - 36.0 g/dL [facility] MCV (RBC) [Entitic vol] 98 fL 80 - 100 fL [facility] Nucleated RBC/100 WBC (Bld) [Ratio] 0.0 % [facility] Platelets (Bld) [#/Vol] 154 10*3/uL [facility] RBC (Bld) [#/Vol] 3.65 10*6/uL Low [facility] WBC (Bld) [#/Vol] 8.6 10*3/uL [facility] Erythrocyte distribution width (RBC) [Ratio] 13.2 % Normal 11.5-14.5 [facility] Comment on above: Performed By: #### 5 8410-2 #### CARIN Webb ([id number]) [facility] ([facility]) [address] [place] [address] Hematocrit (Bld) [Volume fraction] 35.8 % Low 41.0-52.0 [facility] Comment on above: Performed By: #### 5 8410-2 #### CARIN Webb ([id number]) [facility] ([facility]) [id number] [place] [address] Hemoglobin (Bld) [Mass/Vol] 10.7 g/dL Low 13.5-17.5 [facility] Comment on above: Performed By: #### 5 8410-2 #### CARIN Webb ([id number]) [facility] ([facility]) [id number] [place] [address] MCH (RBC) [Entitic mass] 29.3 pg Normal 26.0-34.0 [facility] Comment on above: Performed By: #### 5 8410-2 #### CARIN Webb ([id number]) [facility] ([facility]) [address] [place] [address] MCHC (RBC) [Mass/Vol] 29.9 g/dL Low 32.0-36.0 [facility] Comment on above: Performed By: #### 5 8410-2 #### CARIN Webb ([id number]) [facility] ([facility]) [address] [place] [address] MCV (RBC) [Entitic vol] 98 fL Normal 80-100 [facility] Comment on above: Performed By: #### 5 8410-2 #### CARIN Webb ([id number]) [facility] ([facility]) [address] [place] [address] Nucleated RBC/100 WBC (Bld) [Ratio] 0.0 /100 WBCs Normal 0.0-0.0 [facility] Comment on above: Performed By: #### 5 8410-2 #### CARIN Webb ([id number]) [facility] ([facility]) [address] [place] [address] Platelets (Bld) [#/Vol] 154 x10*3/uL Normal 150-450 [facility] Comment on above: Performed By: #### 5 8410-2 #### CARIN Webb ([id number]) [facility] ([facility]) [address] [place] [address] RBC (Bld) [#/Vol] 3.65 x10*6/uL Low 4.50-5.90 [facility] Comment on above: Performed By: #### 5 8410-2 #### CARIN Webb ([id number]) [facility] ([facility]) [address] [place] [address] WBC (Bld) [#/Vol] 8.6 x10*3/uL Normal 4.4-11.3 [facility] Comment on above: Performed By: #### 5 8410-2 #### CARIN Webb ([id number]) [facility] ([facility]) [address] [place] [address] Abdomen and Pelvis W cont rast [...] Grossman. Data analyzed and images interpreted at [place], [place]. MACRO: Critical Finding: See findings. Notification was initiated on 01/28/2024 at 12:59 am by Nevaeh Lind. (-YCF-) Instructions: Signed by: Nevaeh Lind 01/28/2024 12:59 AM Dictation workstation: [id number] Interpreted By: Nevaeh Goel and [place] Conner STUDY: CT ABDOMEN PELVIS W IV CONTRAST; 01/27/2024 11:40 pm INDICATION: Signs/Symptoms:fall. COMPARISON: CT pelvis 01/27/2024 ACCESSION NUMBER(S): [id number] ORDERING CLINICIAN: HARINI MENDEZ TECHNIQUE: CT of [...] Signs/Symptoms:fall. COMPARISON: CT pelvis 01/27/2024 ACCESSION NUMBER(S): [id number] ORDERING CLINICIAN: HARINI MENDEZ TECHNIQUE: CT of [...] Grossman. Data analyzed and images interpreted at [facility], [place], [place]. MACRO: Critical Finding: See findings. Notification was initiated on 01/28/2024 at 12:59 am by Nevaeh Lind. (-YCF-) Instructions: Signed by: Nevaeh Lind 01/28/2024 12:59 AM Dictation workstation: [id number] [facility] Work Phone: [facility] Work Phone: ECG 12 LeadOrdered By: Jessa Hill on 01-28-2024 Atrial Rate 67 BPM [facility] Work Phone: P [place] 30 degrees [facility] Work Phone: [phone] P Offset 185 ms [facility] Work Phone: [phone] P Onset 124 ms [facility] Work Phone: [phone] UT Interval 192 ms [facility] Work Phone: [phone] Q Onset 220 ms [facility] Work Phone: [phone] QRS Count 10 beats [facility] Work Phone: [phone] QRS Duration 90 ms [facility] Work Phone: [phone] QT Interval 392 ms [facility] Work Phone: [phone] QTC Calculation(Bazett) 414 [facility] Work Phone: QTC Fredericia 407 [facility] Work Phone: [phone] R [place] 39 degrees [facility] Work Phone: [phone] T [place] 34 degrees [facility] Work Phone: [phone] T Offset 416 ms [facility] Work Phone: Ventricular Rate 67 [facility] Work Phone: [phone] [facility] Work Phone: ECG 12 Leadon 01-28-2024 Normal sinus rhythm Normal ECG No previous ECGs available See ED provider note for full interpretation and clinical correlation Confirmed by Daphne Hill ([id number]) on 01/28/2024 1:10:44 AM Daphne Moore PA-C - 01/28/2024 Normal sinus rhythm Normal ECG No previous ECGs available See ED provider note for full interpretation and clinical correlation Confirmed by Daphne Hill ([id number]) on 01/28/2024 1:10:44 AM [facility] Work Phone: FL FLUORO IMAGES NO CHARGEon 01-28-2024 FL FLUORO IMAGES NO CHARGE These images are not reportable by radiology and will not be interpreted by Radiologists. Normal [facility] Magnesiumon 01-28-2024 Magnesium [Mass/Vol] 2.02 mg/dL 1.60 - 2.40 mg/dL [facility] Magnesium [Mass/Vol] 2.02 mg/dL Normal 1.60-2.40 [facility] Comment on above: Performed By: #### 1 9123-9 #### CARIN Webb ([id number]) [facility] ([facility]) [address] [place] [address]40 Magnesium [Mass/Vol]on 01-27 Interpretation and review of laboratory results Normal [facility] No Panel Informationon 01-27 [facility] 1. Minimally displac ed subtrochanteric periprosthetic fracture, not significantly changed in alignment. 2. 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 I personally reviewed the images/study and I agree with the findings as stated by Dr. Song Lozoya. This study was interpreted at [place], [place]. MACRO: None Signed by: Nevaeh Lind 01/28/2024 12:34 AM Dictation workstation: [id number] Interpreted By: Nevaeh Goel and Ohs Zachary STUDY: XR HIP LEFT WITH PELVIS WHEN PERFORMED 2 OR 3 VIEWS; XR KNEE LEFT 1-2 VIEWS 01/27/2024 8:52 pm INDICATION: Signs/Symptoms:femur fracture COMPARISON: Pelvic radiograph 01/27/2024. ACCESSION NUMBER(S): [id number]; [id number] ORDERING CLINICIAN: DEANA GONZALEZ TECHNIQUE: AP view [...] fracture COMPARISON: Pelvic radiograph 01/27/2024. ACCESSION NUMBER(S): [id number]; [id number] ORDERING CLINICIAN: DEANA GONZALEZ TECHNIQUE: AP view [...] Song Lozoya. This study was interpreted at [place], [place]. MACRO: None Signed by: Nevaeh Lind 01/28/2024 12:34 AM Dictation workstation: [id number] [facility] Work Phone: No Panel InformationOrdered By: Nevaeh Lind on 01-28-2024 [facility] Work Phone: Renal function 2000 panelon 01-28-2024 Albumin BCP dye [Mass/Vol] 3.3 g/dL Low 3.4 - 5.0 g/dL [facility] Anion gap [Moles/Vol] 13 mmol/L 10 - 2 0 mmol/L [facility] Calcium [Mass/Vol] 8.2 mg/dL Low 8.6 - 10. 6 mg/dL [facility] Chloride [Moles/Vol] 100 mmol/L 98 - 10 7 mmol/L [facility] CO2 [Moles/Vol] 23 mmol/L 21 - 32 mmol/L [facility] Creatinine [Mass/Vol] 0.74 mg/dL 0.50 - 1.30 mg/dL [facility] GFR/1.73 sq M.predicted among non-blacks MDRD (S/P/Bld) [Vol rate/Area] 89 mL/min/{1.73_m2} - PINF [facility] Comment on above: Calculations of sebastien mated GFR are performed using the 2020 CKD-EPI Study Refit equation without the race variable for the IDMS-Traceable creatinine methods. https://jasn.asnjournals.org/content//ASN.37881 10240 Glucose [Mass/Vol] 142 mg/dL High 74 - 99 mg/dL [facility] Interpretation and review of laboratory results Abnormal [facility] Phosphate [Mass/Vol] 3.5 mg/dL 2.5 - 4 .9 mg/dL [facility] Comment on above: The performance tripp acteristics of phosphorus testing in heparinized plasma have been validated by the individual laboratory site where testing is performed. Testing on heparinized plasma is not approved by the FDA; however, such approval is not necessary. Potassium [Moles/Vol] 4.8 mmol/L 3.5 - 5.3 mmol/L [facility] Sodium [Moles/Vol] 131 mmol/L Low 136 - 145 mmol/L [facility] Urea nitrogen [Mass/Vol] 14 mg/dL 6 - 23 mg/dL [facility] Albumin BCP dye [Mass/Vol] 3.3 g/dL Low 3.4-5.0 [facility] Comment on above: Performed By: #### 2 4362-6 #### CARIN Webb ([id number]) [facility] ([facility]) [address] [place] [address]87 Anion gap [Moles/Vol] 13 mmol/L Normal 10-20 [facility] Comment on above: Performed By: #### 2 4362-6 #### CARIN Webb ([id number]) [facility] ([facility]) [address] [place] [address] 12177 Calcium [Mass/Vol] 8.2 mg/dL Low 8.6-10.6 [facility] Comment on above: Performed By: #### 2 4362-6 #### CARIN Webb ([id number]) [facility] ([facility]) [address] [place] [address] 75209 Chloride [Moles/Vol] 100 mmol/L Normal 98-107 [facility] Comment on above: Performed By: #### 2 4362-6 #### CARIN Webb ([id number]) [facility] ([facility]) [address] [place] [address] CO2 [Moles/Vol] 23 mmol/L Normal 21-32 [facility] Comment on above: Performed By: #### 2 4362-6 #### CARIN Webb ([id number]) [facility] ([facility]) [address] [place] [address] 89199 Creatinine [Mass/Vol] 0.74 mg/dL Normal 0.50-1.30 [facility] Comment on above: Performed By: #### 2 4362-6 #### CARIN MERINO L ([id number]) [facility] ([facility]) [address] [place] [address] 16741 Glomerular filtration rate/1.73 sq M.predicted 89 mL/min/1.73m*2 Normal >60 [facility] Comment on above: Result Comment: Calc ulations of estimated GFR are performed using the 2020 CKD-EPI Study Refit equation without the race variable for the IDMS-Traceable creatinine methods. https://jasn.asnjournals.org/content//ASN.75185 25540 Performed By: #### 2 4362-6 #### CARIN Webb ([id number]) [facility] ([facility]) [address] [place] [address] Glucose [Mass/Vol] 142 mg/dL High 74-99 [facility] Comment on above: Performed By: #### 2 4362-6 #### CARIN Webb ([id number]) [facility] ([facility]) [address] [place] [address] 28804 Phosphate [Mass/Vol] 3.5 mg/dL Normal 2.5-4.9 [facility] Comment on above: Result Comment: The performance characteristics of phosphorus testing in heparinized plasma have been validated by the individual laboratory site where testing is performed. Testing on heparinized plasma is not approved by the FDA; however, such approval is not necessary. Performed By: #### 2 4362-6 #### CARIN Webb ([id number]) [facility] ([facility]) [address] [place] [address] 37866 Potassium [Moles/Vol] 4.8 mmol/L Normal 3.5-5.3 [facility] Comment on above: Performed By: #### 2 4362-6 #### CARIN Webb ([id number]) [facility] ([facility]) [address] [place] [address] Sodium [Moles/Vol] 131 mmol/L Low 136-145 [facility] Comment on above: Performed By: #### 2 4362-6 #### CARIN Webb ([id number]) [facility] ([facility]) [address] [place] [address] 61908 Urea nitrogen [Mass/Vol] 14 mg/dL Normal 6-23 [facility] Comment on above: Performed By: #### 2 4362-6 #### CARIN MERINO L ([id number]) [facility] ([facility]) [address] [place] [address] XR Chest Single viewon 01-27 1. Mild bibasilar atelectasis. I personally reviewed the images/study and I agree with the findings as stated by Dr. Song Lozoya. This study was interpreted at [place], [place]. MACRO: None Signed by: Nevaeh Lind 01/28/2024 12:36 AM Dictation workstation: [id number] [facility] Interpreted By: Nevaeh Goel and Ohs Zachary STUDY: XR CHEST 1 VIEW; 01/27/2024 8:52 pm INDICATION: Signs/Symptoms:preop clearance. COMPARISON: None. ACCESSION NUMBER(S): [id number] ORDERING CLINICIAN: DEANA GONZALEZ FINDINGS: AP radiograph [...] of the posterolateral 6th and 7th ribs. [facility] Nevaeh Lind MD - 01/28/2024 Interpreted By: Nevaeh Lind and Ohs Zachary STUDY: XR CHEST 1 VIEW; 01/27/2024 8:52 pm INDICATION: Signs/Symptoms:preop clearance. COMPARISON: None. ACCESSION NUMBER(S): [id number] ORDERING CLINICIAN: DEANA GONZALEZ FINDINGS: AP radiograph [...] Song Lozoya. This study was interpreted at [place], [place]. MACRO: None Signed by: Nevaeh Lind 01/28/2024 12:36 AM Dictation workstation: [id number] [facility] Work Phone: [facility] Work Phone: XR tomography Unspecified dave dy regionon 01-28-2024 These images are not reportable by radiology and will not be interpreted by Radiologists. IMAGING Blood type AND Indirect anti body screen panelon 01-27-2024 ABO group Nom (Bld) A Normal [facility] Comment on above: Performed By: #### 3 4532-2 #### CARIN Webb ([id number]) [facility] ([facility]) [address] [place] [address] D Ag Ql (Bld) Positive Normal [facility] Comment on above: Performed By: #### 3 4532-2 #### CARIN Webb ([id number]) [facility] ([facility]) [address] [place] [address] Blood type and Indirect anti body screen panel (Bld)on 01-27-2024 ABO group Nom (Bld) A [facility] Blood group antibody screen Ql Negative [facility] D Ag Ql (Bld) Positive [facility] Blood group antibody screen Ql Negative Normal [facility] Comment on above: Performed By: #### 3 4532-2 #### CARIN Webb ([id number]) [facility] ([facility]) [address] [place] [address] CBC W Auto Differential pane l (Bld)on 01-27-2024 Basophils (Bld) [#/Vol] 0.05 10*3/uL [facility] Basophils/100 WBC (Bld) 0.6 % 0.0 - 2.0 % [facility] Eosinophils (Bld) [#/Vol] 0.57 10*3/uL High [facility] Eosinophils/100 WBC (Bld) 7.3 % 0.0 - 6.0 % [facility] Erythrocyte distribution width (RBC) [Ratio] 13.4 % 11.5 - 14.5 % [facility] Hematocrit (Bld) [Volume fraction] 36.5 % Low 41.0 - 52.0 % [facility] Hemoglobin (Bld) [Mass/Vol] 12.3 g/dL Low 13.5 - 17.5 g/dL [facility] Immature granulocytes (Bld) [#/Vol] 0.03 10*3/uL [facility] Immature granulocytes/100 WBC (Bld) 0.4 % 0.0 - 0.9 % [facility] Comment on above: Immature Granulocyte Count (IG) includes promyelocytes, myelocytes and metamyelocytes but does not include bands. Percent differential counts (%) should be interpreted in the context of the absolute cell counts (cells/UL). Interpretation and review of laboratory results Abnormal [facility] Lymphocytes (Bld) [#/Vol] 0.97 10*3/uL [facility] Lymphocytes/100 WBC (Bld) 12.3 % 13.0 - 44.0 % [facility] MCH (RBC) [Entitic mass] 29.9 pg 26.0 - 34.0 pg [facility] MCHC (RBC) [Mass/Vol] 33.7 g/dL 32.0 - 36.0 g/dL [facility] MCV (RBC) [Entitic vol] 89 fL 80 - 100 fL [facility] Monocytes (Bld) [#/Vol] 1.09 10*3/uL High [facility] Monocytes/100 WBC (Bld) 13.9 % 2.0 - 10.0 % [facility] Neutrophils (Bld) [#/Vol] 5.15 10*3/uL [facility] Comment on above: Percent differential counts (%) should be interpreted in the context of the absolute cell counts (cells/uL). Neutrophils/100 WBC (Bld) 65.5 % 40.0 - 80.0 % [facility] Nucleated RBC/100 WBC (Bld) [Ratio] 0.0 % [facility] Platelets (Bld) [#/Vol] 182 10*3/uL [facility] RBC (Bld) [#/Vol] 4.12 10*6/uL Low [facility] WBC (Bld) [#/Vol] 7.9 10*3/uL [facility] Basophils (Bld) [#/Vol] 0.05 x10*3/uL Normal 0.00-0.10 [facility] Comment on above: Performed By: #### 5 7021-8 #### BRANDON Webb ([id number]) [facility] ([facility] [address] [place] [address] 27816 Basophils/100 WBC (Bld) 0.6 % Normal 0.0-2.0 [facility] Comment on above: Performed By: #### 5 7021-8 #### BRANDON Webb ([id number]) [facility] ([facility] [address] [place] [address] 60016 Eosinophils (Bld) [#/Vol] 0.57 x10*3/uL High 0.00-0.40 [facility] Comment on above: Performed By: #### 5 7021-8 #### BRANDON Webb ([id number]) [facility] ([facility] [address] [place] [address] 98977 Eosinophils/100 WBC (Bld) 7.3 % Normal 0.0-6.0 [facility] Comment on above: Performed By: #### 5 7021-8 #### BRANDON Webb ([id number]) [facility] ([facility] [address] [place] [address] 01185 Erythrocyte distribution width (RBC) [Ratio] 13.4 % Normal 11.5-14.5 [facility] Comment on above: Performed By: #### 5 7021-8 #### BRANDON Webb ([id number]) [facility] ([facility] [address] [place] [address] 32306 Hematocrit (Bld) [Volume fraction] 36.5 % Low 41.0-52.0 [facility] Comment on above: Performed By: #### 5 7021-8 #### BRANDON Webb ([id number]) [facility] ([facility] [address] [place] [address] 18678 Hemoglobin (Bld) [Mass/Vol] 12.3 g/dL Low 13.5-17.5 [facility] Comment on above: Performed By: #### 5 7021-8 #### BRANDON Webb ([id number]) [facility] ([facility] [address] [place] [address] 41876 Immature granulocytes (Bld) [#/Vol] 0.03 x10*3/uL Normal 0.00-0.50 [facility] Comment on above: Performed By: #### 5 7021-8 #### BRANDON Webb ([id number]) [facility] ([facility] [address] [place] [address] 39529 Immature granulocytes/100 WBC (Bld) 0.4 % Normal 0.0-0.9 [facility] Comment on above: Result Comment: Larisa ture Granulocyte Count (IG) includes promyelocytes, myelocytes and metamyelocytes but does not include bands. Percent differential counts (%) should be interpreted in the context of the absolute cell counts (cells/UL). Performed By: #### 5 7021-8 #### BRANDON Webb ([id number]) [facility] ([facility] [address] [place] [address] 71923 Lymphocytes (Bld) [#/Vol] 0.97 x10*3/uL Normal 0.80-3.00 [facility] Comment on above: Performed By: #### 5 7021-8 #### BRANDON Webb ([id number]) [facility] ([facility] [address] [place] [address] 62983 Lymphocytes/100 WBC (Bld) 12.3 % Normal 13.0-44.0 [facility] Comment on above: Performed By: #### 5 7021-8 #### BRANDON Webb ([id number]) [facility] ([facility] [address] [place] [address] 26349 MCH (RBC) [Entitic mass] 29.9 pg Normal 26.0-34.0 [facility] Comment on above: Performed By: #### 5 7021-8 #### BRANDON Webb ([id number]) [facility] ([facility] [address] [place] [address] MCHC (RBC) [Mass/Vol] 33.7 g/dL Normal 32.0-36.0 [facility] Comment on above: Performed By: #### 5 7021-8 #### BRANDON Webb ([id number]) [facility] ([facility] [address] [place] [address] MCV (RBC) [Entitic vol] 89 fL Normal 80-100 [facility] Comment on above: Performed By: #### 5 7021-8 #### BRANDON Webb ([id number]) [facility] ([facility] [address] [place] [address] Monocytes (Bld) [#/Vol] 1.09 x10*3/uL High 0.05-0.80 [facility] Comment on above: Performed By: #### 5 7021-8 #### BRANDON Webb ([id number]) [facility] ([facility] [address] [place] [address] Monocytes/100 WBC (Bld) 13.9 % Normal 2.0-10.0 [facility] Comment on above: Performed By: #### 5 7021-8 #### BRANDON Webb ([id number]) [facility] ([facility] [address] [place] [address] Neutrophils (Bld) [#/Vol] 5.15 x10*3/uL Normal 1.60-5.50 [facility] Comment on above: Result Comment: Perc ent differential counts (%) should be interpreted in the context of the absolute cell counts (cells/uL). Performed By: #### 5 7021-8 #### BRANDON Webb ([id number]) [facility] ([facility]) [address] [place] [address] 87065 Neutrophils/100 WBC (Bld) 65.5 % Normal 40.0-80.0 [facility] Comment on above: Performed By: #### 5 7021-8 #### BRANDON Webb ([id number]) [facility] ([facility] [address] [place] [address] Nucleated RBC/100 WBC (Bld) [Ratio] 0.0 /100 WBCs Normal 0.0-0.0 [facility] Comment on above: Performed By: #### 5 7021-8 #### BRANDON Webb ([id number]) [facility] ([facility] [address] [place] [address] 89531 Platelets (Bld) [#/Vol] 182 x10*3/uL Normal 150-450 [facility] Comment on above: Performed By: #### 5 7021-8 #### BRANDON Webb ([id number]) [facility] ([facility] [address] [place] [address] RBC (Bld) [#/Vol] 4.12 x10*6/uL Low 4.50-5.90 [facility] Comment on above: Performed By: #### 5 7021-8 #### BRANDON Webb ([id number]) [facility] ([facility] [address] [place] [address] 19956 WBC (Bld) [#/Vol] 7.9 x10*3/uL Normal 4.4-11.3 [facility] Comment on above: Performed By: #### 5 7021-8 #### BRANDON Webb ([id number]) [facility] ([facility] [address] [place] [address] ABDOMEN PELVIS W IV CONTR Jane 01-27-2024 CT ABDOMEN PELVIS W IV CONTRAST Interpreted By: Nevaeh Lind and Beyersdorf Conner STUDY: CT ABDOMEN PELVIS W IV CONTRAST; 01/27/2024 11:40 pm INDICATION: Signs/Symptoms:fall. COMPARISON: CT pelvis 01/27/2024 ACCESSION NUMBER(S): [id number] ORDERING CLINICIAN: HARINI MENDEZ TECHNIQUE: CT of [...] Grossman. Data analyzed and images interpreted at [facility], [place], [place]. MACRO: Critical Finding: See findings. Notification was initiated on 01/28/2024 at 12:59 am by Nevaeh Lind. (-YCF-) Instructions: Signed by: Nevaeh Lind 01/28/2024 12:59 AM Dictation workstation: [id number] [facility] CT Abdomen and Pelvis W cont rast Diana 01-27-2024 Radiology Study observation (narrative) [facility] Work Phone: CT LUMBAR SPINE WO IV CONTRA STon 01-27-2024 CT LUMBAR SPINE WO IV CONTRAST Interpreted By: Lelia Mclaughlin, STUDY: CT LUMBAR SPINE WO IV CONTRAST 01/27/2024 12:14 pm INDICATION: Signs/Symptoms:fall COMPARISON: None. ACCESSION NUMBER(S): [id number] ORDERING CLINICIAN: DEZ HOOVER TECHNIQUE: Axial CT [...] Lelia Mclaughlin 01/27/2024 1:35 PM Dictation workstation: [id number] [facility] CT Lumbar spine WO contrasto n 01-27-2024 Multilevel discogeni c degenerative changes with central canal and neural foraminal narrowing at multiple levels and vacuum disc at every level. Minimal loss of height of multiple lumbar spine vertebral bodies of likely chronic nature. MACRO: None Signed by: Lelia Mclaughlin 01/27/2024 1:35 PM Dictation workstation: [id number] [facility] Interpreted By: Lelia Romo, STUDY: CT LUMBAR SPINE WO IV CONTRAST 01/27/2024 12:14 pm INDICATION: Signs/Symptoms:fall COMPARISON: None. ACCESSION NUMBER(S): [id number] ORDERING CLINICIAN: DEZ HOOVER TECHNIQUE: Axial CT [...] pm INDICATION: Signs/Symptoms:fall COMPARISON: None. ACCESSION NUMBER(S): [id number] ORDERING CLINICIAN: DEZ HOOVER TECHNIQUE: Axial CT [...] Lelia Mclaughlin 01/27/2024 1:35 PM Dictation workstation: [id number] [facility] Work Phone: CT Lumbar spine WO contrastO rdered By: Lelia Mclaughlin on 01-27-2024 [facility] Work Phone: CT PELVIS WO IV CONTRASTon 0 01-27-2024 CT PELVIS WO IV CONTRAST Interpreted By: Sushil Mcclellan, STUDY: CT PELVIS WO IV CONTRAST; ; 01/27/2024 12:14 pm INDICATION: Signs/Symptoms:fall/left hip pain/history of implant/unable to ambulate. COMPARISON: None. 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 MACRO: None Signed by: Sushil Mcclellan 01/27/2024 12:43 PM Dictation workstation: [id number] Interpreted By: Sushil Harris, STUDY: CT PELVIS WO IV CONTRAST; ; 01/27/2024 12:14 pm INDICATION: Signs/Symptoms:fall/left hip pain/history of implant/unable to ambulate. COMPARISON: None. ACCESSION NUMBER(S): [id number] ORDERING CLINICIAN: DEZ HOOVER TECHNIQUE: Multiple thin-section [...] implant/unable to ambulate. COMPARISON: None. ACCESSION NUMBER(S): [id number] ORDERING CLINICIAN: DEZ HOOVER TECHNIQUE: Multiple thin-section [...] total hip arthroplasty. MACRO: None Signed by: Suhsil Mcclellan 01/27/2024 12:43 PM Dictation workstation: [id number] [facility] Work Phone: CT Pelvis WO contrastOrdered By: Sushil Mcclellan on 01-27-2024 [facility] Work Phone: Coagulation tissue factor in ducedon 01-27-2024 PT Coag (PPP) [Time] 12.6 s Normal 9.8-12.8 [facility] Comment on above: Performed By: #### 5 902-2 #### BRANDON Webb ([id number]) [facility] ([facility] [address] [place] [address] 78033 Comprehensive metabolic 2000 panelon 01-27-2024 Albumin BCP dye [Mass/Vol] 3.8 g/dL 3.4 - 5.0 g/dL [facility] ALP [Catalytic activity/Vol] 43 U/L 33 - 136 U/L [facility] ALT With P-5'-P [Catalytic activity/Vol] 12 U/L 10 - 52 U/L [facility] Comment on above: Patients treated wit h Sulfasalazine may generate falsely decreased results for ALT. Anion gap [Moles/Vol] 10 mmol/L 10 - 2 0 mmol/L [facility] AST With P-5'-P [Catalytic activity/Vol] 17 U/L 9 - 39 U/L [facility] Bilirubin [Mass/Vol] 0.8 mg/dL 0.0 - 1 .2 mg/dL [facility] Calcium [Mass/Vol] 8.6 mg/dL 8.6 - 10. 3 mg/dL [facility] Chloride [Moles/Vol] 101 mmol/L 98 - 10 7 mmol/L [facility] CO2 [Moles/Vol] 27 mmol/L 21 - 32 mmol/L [facility] Creatinine [Mass/Vol] 0.71 mg/dL 0.50 - 1.30 mg/dL [facility] [place] GFR/1.73 sq M.predicted among non-blacks MDRD (S/P/Bld) [Vol rate/Area] 90 mL/min/{1.73_m2} - PINF [facility] Comment on above: Calculations of sebastien mated GFR are performed using the 2020 CKD-EPI Study Refit equation without the race variable for the IDMS-Traceable creatinine methods. https://jasn.asnjournals.org/content//ASN.46621 59729 Glucose [Mass/Vol] 95 mg/dL 74 - 99 mg/dL [facility] [place] Interpretation and review of laboratory results Abnormal [facility] Potassium [Moles/Vol] 4.5 mmol/L 3.5 - 5.3 mmol/L [facility] [place] [facility] Protein [Mass/Vol] 6.7 g/dL 6.4 - 8.2 g/dL [facility] [place] [facility] Sodium [Moles/Vol] 133 mmol/L Low 136 - 145 mmol/L [facility] [place] Urea nitrogen [Mass/Vol] 15 mg/dL 6 - 23 mg/dL [facility] Albumin BCP dye [Mass/Vol] 3.8 g/dL Normal 3.4-5.0 [facility] Comment on above: Performed By: #### 2 4323-8 #### BRANDON Webb ([id number]) [facility] [place] [address] [place] [address] ALP [Catalytic activity/Vol] 43 U/L Normal 33-136 [facility] Comment on above: Performed By: #### 2 4323-8 #### BRANDON Webb ([id number]) [facility] [address] [place] [address] 20789 ALT With P-5'-P [Catalytic activity/Vol] 12 U/L Normal 10-52 [facility] Comment on above: Result Comment: Eloisa ents treated with Sulfasalazine may generate falsely decreased results for ALT. Performed By: #### 2 4323-8 #### BRANDON Webb ([id number]) [facility] [place] [address] [place] [address] 68716 Anion gap [Moles/Vol] 10 mmol/L Normal 10-20 [facility] Comment on above: Performed By: #### 2 4323-8 #### BRANDON Webb ([id number]) [facility] [place] [address] [place] [address] 28983 AST With P-5'-P [Catalytic activity/Vol] 17 U/L Normal 9-39 [facility] Comment on above: Performed By: #### 2 4323-8 #### BRANDON Webb ([id number]) [facility] [address] [place] [address] 08773 Bilirubin [Mass/Vol] 0.8 mg/dL Normal 0.0-1.2 [facility] Comment on above: Performed By: #### 2 4323-8 #### BRANDON Webb ([id number]) [facility] [address] [place] [address] 07149 Calcium [Mass/Vol] 8.6 mg/dL Normal 8.6-10.3 [facility] Comment on above: Performed By: #### 2 4323-8 #### BRANDON Webb ([id number]) [facility] [place] [address] [place] [address] 17522 Chloride [Moles/Vol] 101 mmol/L Normal 98-107 [facility] Comment on above: Performed By: #### 2 4323-8 #### BRANDON Webb ([id number]) [facility] [address] [place] [address] 71064 CO2 [Moles/Vol] 27 mmol/L Normal 21-32 [facility] Comment on above: Performed By: #### 2 4323-8 #### BRANDON Webb ([id number]) [facility] [address] [place] [address] 02404 Creatinine [Mass/Vol] 0.71 mg/dL Normal 0.50-1.30 [facility] Comment on above: Performed By: #### 2 4323-8 #### BRANDON Webb ([id number]) [facility] [address] [place] [address] 58899 Glomerular filtration rate/1.73 sq M.predicted 90 mL/min/1.73m*2 Normal >60 [facility] Comment on above: Result Comment: Calc ulations of estimated GFR are performed using the 2020 CKD-EPI Study Refit equation without the race variable for the IDMS-Traceable creatinine methods. https://jasn.asnjournals.org/content//ASN.41861 85171 Performed By: #### 2 4323-8 #### BRANDON Webb ([id number]) [facility] [address] [place] [address] Glucose [Mass/Vol] 95 mg/dL Normal 74-99 [facility] Comment on above: Performed By: #### 2 4323-8 #### BRANDON Webb ([id number]) [facility] [address] [place] [address] Potassium [Moles/Vol] 4.5 mmol/L Normal 3.5-5.3 [facility] Comment on above: Performed By: #### 2 4323-8 #### BRANDON Webb ([id number]) [facility] ([facility] [address] [place] [address] 14738 Protein [Mass/Vol] 6.7 g/dL Normal 6.4-8.2 [facility] Comment on above: Performed By: #### 2 4323-8 #### BRANDON Webb ([id number]) [facility] ([facility] [address] [place] [address] 70951 Sodium [Moles/Vol] 133 mmol/L Low 136-145 [facility] Comment on above: Performed By: #### 2 4323-8 #### BRANDON Webb ([id number]) [facility] [address] [place] [address] Urea nitrogen [Mass/Vol] 15 mg/dL Normal 6-23 [facility] Comment on above: Performed By: #### 2 4323-8 #### BRANDON Webb ([id number]) [facility] [address] [place] [address] ECG 12-LEADon 01-27-2024 ECG 12-LEAD Ventricular Rate 67 Atrial Rate 67 P-R Interval 192 QRS Duration 90 Q-T Interval 392 QTC Calculation(Bazett) 414 P [place] 30 R [place] 39 T [place] 34 QRS Count 10 Q Onset 220 P Onset 124 P Offset 185 T Offset 416 QTC Fredericia 407 Diagnosis Normal sinus rhythm Normal ECG No previous ECGs available See ED provider note for full interpretation and clinical correlation Confirmed by Daphne Hill ([id number]) on 01/28/2024 1:10:44 AM Normal [facility] No Panel Informationon 01-26 Radiology Study observation (narrative) [facility] Work Phone: A fracture through t he proximal left femur. No dislocation. Signed by: Lelia Mclaughlin 01/27/2024 3:15 PM Dictation workstation: [id number] MMODAL Interpreted By: Lelia Romo, STUDY: XR FEMUR LEFT 2+ VIEWS; XR PELVIS 1-2 VIEWS; 01/27/2024 3:04 pm INDICATION: Signs/Symptoms:fall. COMPARISON: None. ACCESSION NUMBER(S): [id number]; [id number] ORDERING CLINICIAN: DEZ HOOVER FINDINGS: Total bilateral hip arthroplasties.. There is a fracture through the proximal femur, inferior to the trochanters. No dislocation. Vascular calcification. Degenerative changes of the visualized left knee. Vascular calcification. MMODAL Lelia Mclaughlin MD - 01/27/2024 Interpreted By: Lelia Mclaughlin, STUDY: XR FEMUR LEFT 2+ VIEWS; XR PELVIS 1-2 VIEWS; 01/27/2024 3:04 pm INDICATION: Signs/Symptoms:fall. COMPARISON: None. ACCESSION NUMBER(S): [id number]; [id number] ORDERING CLINICIAN: DEZ HOOVER FINDINGS: Total bilateral hip arthroplasties.. There is a fracture through the proximal femur, inferior to the trochanters. No dislocation. Vascular calcification. Degenerative changes of the visualized left knee. Vascular calcification. IMPRESSION: A fracture through the proximal left femur. No dislocation. Signed by: Lelia Mclaughlin 01/27/2024 3:15 PM Dictation workstation: [id number] [facility] Work Phone: [facility] Work Phone: [facility] Radiology Study observation (narrative) [facility] [place] Work Phone: Radiology Study observation (narrative) [facility] Work Phone: PT Coag (PPP) [Time]on 01-26 INR Coag (PPP) [Relative time] 1.1 {INR} 0.9 - 1.1 [facility] Interpretation and review of laboratory results [facility] INR Coag (PPP) [Relative time] 1.1 Normal 0.9-1.1 [facility] Comment on above: Performed By: #### 5 902-2 #### BRANDON Webb ([id number]) [facility] ([facility]) [address] [place] [address] Protime-INRon 01-27-2024 PT Coag (PPP) [Time] 12.6 s [facility] VERAB/VERIFY ABORHon 024 ABO group Nom (Bld) A Normal [facility] Comment on above: Order Comment: Thi s is for confirming/verifying history of ABORh on file for transfusion of blood products. If this is not for transfusion, please order an ABO/RH [[id number]]. If you have any questions or unsure what to order, please call the blood bank. Performed By: #### V ERAB #### CARIN Webb ([id number]) [facility] ([facility]) [address] [place] [address] D Ag Ql (Bld) Positive Normal [facility] Comment on above: Order Comment: Thi s is for confirming/verifying history of ABORh on file for transfusion of blood products. If this is not for transfusion, please order an ABO/RH [[id number]]. If you have any questions or unsure what to order, please call the blood bank. Performed By: #### V ERAB #### CARIN Webb ([id number]) [facility] ([facility]) [address] [place] [address] XR CHEST 1 VIEWon 01-27-2024 XR CHEST 1 VIEW Interpreted By: Nevaeh Goel and Ohs Zachary STUDY: XR CHEST 1 VIEW; 01/27/2024 8:52 pm INDICATION: Signs/Symptoms:preop clearance. COMPARISON: None. ACCESSION NUMBER(S): [id number] ORDERING CLINICIAN: DEANA GONZALEZ FINDINGS: AP radiograph [...] Song Lozoya. This study was interpreted at [place], [place]. MACRO: None Signed by: Nevaeh Lind 01/28/2024 12:36 AM Dictation workstation: [id number] [facility] XR FEMUR LEFT 2+ VIEWSon XR FEMUR LEFT 2+ VIEWS Interpreted By: Lelia Vieyra, STUDY: XR FEMUR LEFT 2+ VIEWS; XR PELVIS 1-2 VIEWS; 01/27/2024 3:04 pm INDICATION: Signs/Symptoms:fall. COMPARISON: None. ACCESSION NUMBER(S): [id number]; [id number] ORDERING CLINICIAN: DEZ HOOVER FINDINGS: Total bilateral hip arthroplasties.. There is a fracture through the proximal femur, inferior to the trochanters. No dislocation. Vascular calcification. Degenerative changes of the visualized left knee. Vascular calcification. IMPRESSION: A fracture through the proximal left femur. No dislocation. Signed by: Lelia Mclaughlin 01/27/2024 3:15 PM Dictation workstation: [id number] [facility] XR HIP LEFT WITH PELVIS WHEN PERFORMED 2 OR 3 VIEWSon 01-27-2024 XR HIP LEFT WITH PELVIS WHEN PERFORMED 2 OR 3 VIEWS Interpreted By: Nevaeh Lind and Ohs Zachary STUDY: XR HIP LEFT WITH PELVIS WHEN PERFORMED 2 OR 3 VIEWS; XR KNEE LEFT 1-2 VIEWS 01/27/2024 8:52 pm INDICATION: Signs/Symptoms:femur fracture COMPARISON: Pelvic radiograph 01/27/2024. ACCESSION NUMBER(S): [id number]; [id number] ORDERING CLINICIAN: DEANA GONZALEZ TECHNIQUE: AP view [...] Song Lozoya. This study was interpreted at [place], [place]. MACRO: None Signed by: Nevaeh Lind 01/28/2024 12:34 AM Dictation workstation: [id number] Normal [facility] XR KNEE LEFT 1-2 VIEWSon XR KNEE LEFT 1-2 VIEWS Interpreted By: Nevaeh Ricketts and Ohs Zachary STUDY: XR HIP LEFT WITH PELVIS WHEN PERFORMED 2 OR 3 VIEWS; XR KNEE LEFT 1-2 VIEWS 01/27/2024 8:52 pm INDICATION: Signs/Symptoms:femur fracture COMPARISON: Pelvic radiograph 01/27/2024. ACCESSION NUMBER(S): [id number]; [id number] ORDERING CLINICIAN: DEANA GONZALEZ TECHNIQUE: AP view [...] Song Lozoya. This study was interpreted at [facility], [place], [place]. MACRO: None Signed by: Nevaeh Lind 01/28/2024 12:34 AM Dictation workstation: [id number] [facility] XR PELVIS 1-2 VIEWSon 2023 XR PELVIS 1-2 VIEWS Interpreted By: Lelia Romo, STUDY: XR FEMUR LEFT 2+ VIEWS; XR PELVIS 1-2 VIEWS; 01/27/2024 3:04 pm INDICATION: Signs/Symptoms:fall. COMPARISON: None. ACCESSION NUMBER(S): [id number]; [id number] ORDERING CLINICIAN: DEZ HOOVER FINDINGS: Total bilateral hip arthroplasties.. There is a fracture through the proximal femur, inferior to the trochanters. No dislocation. Vascular calcification. Degenerative changes of the visualized left knee. Vascular calcification. IMPRESSION: A fracture through the proximal left femur. No dislocation. Signed by: Lelia Mclaughlin 01/27/2024 3:15 PM Dictation workstation: [id number] [facility] 01-08-[address] [facility] 01-07-2024 36 S: Patient spoke wit h [facility] nurse regarding Numbness of face, [...] enough liquids, chapped lips.) Protocols used: Swallowing Xfqnsygnsm-AENMF-BO, Mouth Zczvuwex-CQJMV-LM [facility] (WALKWA ) PHILLY JOEL ([id number]) 1940 M [facility] Date Time Provider Department [...] adenopathy. Skin: (more content not included)... 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 Normal [facility] Free T4 [Mass/Vol]on 023 Free T4 Dialysis [Mass/Vol] 1.24 ng/dL 0.78 - 2.19 ng/dL [facility] Interpretation and review of laboratory results Normal [facility] T3on 09-06-2022 T3 [Mass/Vol] 137 ng/dL 97 - 169 ng/dL [facility] T3 [Mass/Vol]on 09-06-2022 Interpretation and review of laboratory results Normal [facility] TSHon 09-06-2022 TSH Qn 0.284 m[IU]/L Low [facility] TSH Qnon 09-06-2022 Interpretation and review of laboratory results Abnormal [facility] Lipid 1996 panelon 3 Cholesterol [Mass/Vol] 184 mg/dL NINF - 200 mg/dL [facility] Cholesterol in HDL [Mass/Vol] 60 mg/dL 40 - 60 mg/dL [facility] Cholesterol in LDL [Mass/Vol] 113 mg/dL High 0 - <100 [facility] Cholesterol.total/Chol esterol in HDL [Mass ratio] 3 {ratio} [facility] Comment on above: Ref Range: < 3 Low Risk for CHD 3-6 Mod Risk for CHD > 6 High Risk for CHD Interpretation and review of laboratory results Abnormal [facility] Triglyceride [Mass/Vol] 56 mg/dL NINF - 150 mg/dL [facility] TSHon 08-09-2022 TSH Qn 0.432 m[IU]/L Low [facility] TSH Qnon 08-09-2022 Interpretation and review of laboratory results Abnormal [facility] CR Knee 3 Views Lefton 11-30 CR Knee 3 Views Left Patient Name: PHILLY JOHNSON Diagnostic Radiology ACCESSION EXAM DATE/TIME PROCEDURE ORDERING PROVIDER [id number] 11/30/2021 14:36 EDT CR Knee 3 Views Left GUILHERME FALLON CPT code 95246 Reason For Exam (CR Knee 3 Views [...] Date and Time: 12/02/2021 2:08 Normal [facility] CR Foot Complete 3+ Views [facility] 01-30-2020 CR Foot Complete 3+ Views Right Patient Name: PHILLY JOEL Diagnostic Radiology Exam Date/Time 01/30/2020 13:48:35 EDT Exam CR Foot Complete 3+ Views Right Ordering Physician MD NAIR JESSE Accession Number [id number] CPT4 Codes 55773 () Reason For Exam Injury Report Examination: [...] Transcribed Date and Time: 01/30/2020 2:16 Normal [facility] XR FOOT RIGHT (MIN 3 VIEWS)o n 01-30-2020 Patient Name: PHILLY KEEN ---Diagnostic Radiology--- Exam Date/Time 01/30/2020 13:48:35 EDT Exam CR Foot Complete 3+ Views Right Ordering Physician MD NAIR JESSE Accession Number [id number] CPT4 Codes 51108 () Reason For Exam Injury Report Examination: [...] fourth metatarsals. Osteopenia. Report Dictated on Workstation: [employer] --- Final --- Dictating Physician: MD BARROS ANTHONY J Signed Date and Time: 01/30/2020 2:15 pm Signed by: MD BARROS ANTHONY J Transcribed Date and Time: 01/30/2020 2:16 [facility] [place], [place], [facility] Incoming Radiology Results From [facility] - 01/30/2020 2:16 PM EDT Patient Name: PHILLY JOEL ---Diagnostic Radiology--- Exam Date/Time 01/30/2020 13:48:35 EDT Exam CR Foot Complete 3+ Views Right Ordering Physician MD NAIR JESSE Accession Number [id number] CPT4 Codes 99438 () Reason For Exam Injury Report Examination: [...] fourth metatarsals. Osteopenia. Report Dictated on Workstation: [employer] --- Final --- Dictating Physician: MD BARROS ANTHONY J Signed Date and Time: 01/30/2020 2:15 pm Signed by: MD BARROS ANTHONY J Transcribed Date and Time: 01/30/2020 2:16 [place], [place] CNTHERAPYon 12-05-2017 CNTHERAPY OT/PT/Speech Visit (PTMDRG) -------[facility] ([id number]) 1940 [facility] Time Provider Department12/05/17 12:45 PM SABRINA DEMPSEY (PT) PTMDRGEncounter Number: [id number] Time Provider Department [place]12/05/2017 12:45 PM [id number], JUDITH (PT)PTMDRG [facility] [place] [facility]: PT Discharge [752]Visit Diagnosis:Decreased ROM [...] of appropriateinterventions.Go niometric measurements, MMTBilling:Paul: Therapeutic Exercise (91619): 1:1 time: 39 minutes (3 units: 38-52mins)Total time: 39 minutesSabrina Dempsey PT - Normal [facility] PROGRESSon 12-05-2017 Protein HNO ID: [id number] thor: Sabrina (Pt) Kishor: (none)Author Type: Physical [...] selection ofappropriate interventions.Goniometric measurements, MMTBilling:Paul: Therapeutic Exercise (77155): 1:1 time: 39 minutes (3 units:38-52 mins)Total time: 39 minutesSabrina Dempsey PT [facility] CNTHERAPYon 12-03-2017 CNTHERAPY OT/PT/Speech Visit (PTMDRG) -------PHILLY JOEL ([id number]) 1940 [facility] Time Provider Department12/03/17 12:45 PM SABRINA DEMPSEY (PT) PTMDRGEncounter Number: [id number] Time Provider Department [place]12/03/2017 12:45 PM [id number], JUDITH (PT)PTMDRG [facility] CReason for Visit: Physical Therapy [...] 10 sec ab brace every 30 seconds2: Angolan Ball: Lat tilts and circles cw/ccw x [...] patient while performing floor transfersBilling:Paul: Therapeutic Exercise (95455): 1:1 time: 35 minutes (3 units: 38-52mins)Therapeutic Activity (94909): 1:1 time: 5 minutes (no charge)Total time: 40 minutesSabrina Dempsey PT - Normal [facility] PROGRESSon 12-03-2017 Protein HNO ID: [id number] thor: Sabrina (Pt) Kishor: (none)Author Type: Physical [...] 5 minutes 10 sec ab brace every [id number]: [place]olan Ball: Lat tilts and circles cw/ccw x [...] by assist to assist patient while performingfloor transfersBilling:[place]: Therapeutic Exercise (34422): 1:1 time: 35 minutes (3 units:38-52 mins)Therapeutic Activity (18477): 1:1 time: 5 minutes (no charge)Total time: 40 minutesSabrina Dempsey PT [facility] CNTHERAPYon 11-28-2017 CNTHERAPY OT/PT/Speech Visit (PTMDRG) -------PHILLY JOEL ([id number]) 1940 [facility] Time Provider Department11/28/17 12:45 PM SABRINA DEMPSEY (PT) PTMDRGEncounter Number: [id number] Time Provider Department [place]11/28/2017 12:45 PM [id number], JUDITH (PT)PTMDRG [place] [facility] CReason for Visit: Physical Therapy [503]Visit [...] [place] of Care Date: 11/14/17Onset Date: 08/15/17[facility] Care Certification Date: 11/14/17Patient Identified [...] with use of close supervisionBilling:Paul: Therapeutic Exercise (05674): 1:1 time: 38 minutes (3 units: 38-52mins)Neuromuscular Re-education (20880): 1:1 time: 5 minutes (no charge)Total time: 43 minutesSabrina Dempsey PT - [facility] PROGRESSon 11-28-2017 Protein HNO ID: [id number] thor: Sabrina (Pt) Kishor: (none)Author Type: Physical [...] activity.Insured patient safety with use of close supervisionBilling:[place]: Therapeutic Exercise (18093): 1:1 time: 38 minutes (3 units:38-52 mins)Neuromuscular Re-education (80806): 1:1 time: 5 minutes (no charge)Total time: 43 minutesSabrina Dempsey PT [facility] CNTHERAPYon 11-26-2017 CNTHERAPY OT/PT/Speech Visit (PTMDRG) -------[facility]ILLY JO[facility] ([id number]) 1940 [facility] Time Provider Department11/26/17 12:45 PM SABRINA DEMPSEY (PT) PTMDRGEncounter Number: [id number] Time Provider Department [place]11/26/2017 12:45 PM [id number], JUDITH (PT)PTMDRG [facility] for Visit: Physical Therapy [503]Visit Diagnosis:Decreased ROM [...] in the objective sectionabove.Billing:Paul : Therapeutic Exercise (65199): 1:1 time: 37 minutes (3 units: 38-52mins)Gait Training (17239): 1:1 time: 3 minutes (no charge)Total time: 40 minutesSabrina Dempsey PT - Normal [facility] PROGRESSon 11-26-2017 Protein HNO ID: [id number] thor: Sabrina (Pt) Kishor: (none)Author Type: Physical [...] identified in the objectivesection above.Billing:Kylee: Therapeutic Exercise (70842): 1:1 time: 37 minutes (3 units:38-52 mins)Gait Training (65305): 1:1 time: 3 minutes (no charge)Total time: 40 minutesSabrina Dempsey PT Normal [facility] CNTHERAPYon 11-21-2017 CNTHERAPY OT/PT/Speech Visit (PTMDRG) -------PHILLY JOEL ([id number]) 1940 MDate Time Provider Department11/21/17 12:45 PM SABRINA DEMPSEY (PT) PTMDRGEncounter Number: [id number] Time Provider Department [place]11/21/2017 12:45 PM [id number], JUDITH (PT)PTMDRG [facility] CReason for Visit: [...] facilitated with verbal andvisual cuing.Billing:Kylee: Therapeutic Exercise (24467): 1:1 time: 45 minutes (3 units: 38-52mins)Total time: 45 minutesSabrina Dempsey PT - Normal [facility] PROGRESSon 11-21-2017 Protein HNO ID: [id number] thor: Sabrina Iverson: (none)Author Type: Physical TherapistType: [...] facilitated with verbaland visual cuing.Roberting:Kylee: Therapeutic Exercise (68996): 1:1 time: 45 minutes (3 units:38-52 mins)Total time: 45 minutesSabrina Dempsey PT [facility] CNTHERAPYon 11-14-2017 CNTHERAPY OT/PT/Speech Visit (PTMDRG) -------PHILLY JOEL ([id number]) 1940 MDate Time Provider Department11/14/17 10:15 AM SABRINA DEMPSEY (PT) PTMDRGEncounter Number: [id number] Time Provider Department [place]11/14/2017 10:15 AM [id number], JUDITH (PT)PTMDRG [facility] CReason for Visit: PT Kirill [747]Primary Visit [...] activity.Insured patient safety with use of close supervisionBilling:[place]: Evaluation - Low Complexity (64068)Therapeutic Exercise (33941): 1:1 time: 10 minutes (1 unit: 8-22 mins)Neuromuscular Re-education (42295): 1:1 time: 5 minutes (no charge)Total time: 55 minutesSabrina Dempsey PT - Normal [facility] PROGRESSon 11-14-2017 Protein HNO ID: [id number] thor: Sabrina (Pt) Kishor: (none)Author Type: Physical [...] activity.Insured patient safety with use of close supervisionBilling:[place]: Evaluation - Low Complexity (94789)Therapeutic Exercise (31091): 1:1 time: 10 minutes (1 unit: 8-22 mins)Neuromuscular Re-education (87556): 1:1 time: 5 minutes (no charge)Total time: 55 minutesSabrina Dempsey, PT [facility] PROGRESSon 11-07-2017 Protein HNO ID: [id number] thor: Sumaya (Ct) Brinda, CTService: (none)Author Type: Clinical TechnicianType: Progress NotesFiled: 11/07/2017 11:11 AMNote Text:NAME:Philly Arambula StephanementDATE: November 07, 2017CCF#: [id number] X-Ray COMPLETEDTECH ID SIGN: SUMAYA ALCANTARA [facility] XR PELVIS 1V APon 11-07-2017 XR PELVIS 1V AP * * *Final Report* * *DATE OF EXAM: Nov 07 2017 8:10AM MAGED 5239 - XR PELVIS 1V AP / REASON: [id number], unspecified * * * * Physician Interpretation [...] RIDER MD on Nov 07 2017 3:48PM [id number] [facility] Vital Signs Date Time Vital Sign Value Performing Clinician Ron wyatt 12-04-2024 15:26-0400 Body temperature 99.4 [degF] Dr. Chetan Mata MD Work Phone: [facility] 12-04-2024 15:26-0400 Diastolic blood pressure 57 mm[Hg] Dr. Chetan Mata MD Work Phone: [facility] 12-04-2024 15:26-0400 Heart rate 93 /min Dr. Chetan Mata MD Work Phone: [phone] [place] [address] 12-04-2024 15:26-0400 Respiratory rate 26 /min Dr. Chetan Mata MD Work Phone: [phone] [place] [address] 12-04-2024 15:26-0400 SaO2% (BldA) [Mass fraction] 97 % Dr. Chetan Mata MD Work Phone: 0(526)893-822957 [place] [address] 12-04-2024 15:26-0400 Systolic blood pressure 87 mm[Hg] Dr. Chetan Mata MD Work Phone: 5(963)726-352757 [place] [address] 12-04-2024 15:20-0400 Body height 187.[address] Chetan Mata MD Work Phone: 9(401)382-871157 [place] [address] 12-04-2024 15:20-0400 Body mass index (BMI) [Ratio] 28.4 kg/m2 Dr. Chetan Mata MD Work Phone: 8(316)094-207257 [place] [address] 12-04-2024 15:20-0400 Body weight 100.[address] Chetan Mata MD Work Phone: 4(103)388-860757 [place] [address] 11-29-2024 00:41-0400 Body temperature 99.2 [degF] Dr. Chetan Mata MD Work Phone: 7(023)568-970957 [place] [address] 11-29-2024 00:41-0400 Diastolic blood pressure 87 mm[Hg] Dr. Chetan Mata MD Work Phone: 2(967)887-383557 [place] [address] 11-29-2024 00:41-0400 Heart rate 73 /min Dr. Chetan Mata MD Work Phone: 9(343)419-158231 [place] [address] 11-29-2024 00:41-0400 Respiratory rate 18 /min Dr. Chetan Mata MD Work Phone: 7(522)459-695357 [place] [address] 11-29-2024 00:41-0400 SaO2% (BldA) [Mass fraction] 99 % Dr. Chetan Mata MD Work Phone: 5(099)766-053757 [place] [address] 11-29-2024 00:41-0400 Systolic blood pressure 132 mm[Hg] Dr. Chetan Mata MD Work Phone: 2(867)259-031757 [place] [address] 11-28-2024 23:57-0400 Body height 187.[address] Chetan Mata MD Work Phone: 8(455)870-991557 [place] [address] 11-28-2024 23:57-0400 Body mass index (BMI) [Ratio] 26.6 kg/m2 Dr. Chetan Mata MD Work Phone: 6(725)502-760057 [place] [address] 11-28-2024 23:57-0400 Body weight 94.[address] Chetan Maat MD Work Phone: 2(536)525-782057 [place] [address] 11-18-2024 17:00-0400 Body mass index (BMI) [Ratio] 27.3 kg/m2 Dr. Chetan Mata MD Work Phone: 7(858)039-758657 [place] [address] 11-18-2024 15:11-0400 Body temperature 97.7 [degF] Dr. Chetan Mata MD Work Phone: 4(645)608-166257 [place] [address] 11-18-2024 15:11-0400 Diastolic blood pressure 60 mm[Hg] Dr. Chetan Mata MD Work Phone: 0(842)706-089757 [place] [address] 11-18-2024 15:11-0400 Heart rate 65 /min Dr. Chetan Mata MD Work Phone: 1(652)691-796957 [place] [address] 11-18-2024 15:11-0400 Respiratory rate 18 /min Dr. Chetan Mata MD Work Phone: 1(187)107-074157 [place] [address] 11-18-2024 15:11-0400 SaO2% (BldA) [Mass fraction] 99 % Dr. Chetan Mata MD Work Phone: 7(288)948-881157 [place] [address] 11-18-2024 15:11-0400 Systolic blood pressure 134 mm[Hg] Dr. Chetan Mata MD Work Phone: 7(036)555-540057 [place] [address] 11-16-2024 17:45-0400 Body weight 96.[address] Chetan Mata MD Work Phone: [facility] 11-16-2024 14:08-0400 Body height 187.[address] Chetan Mata MD Work Phone: 7(731)577-923031 [place] [address] 11-15-2024 14:44-0400 Body temperature 98.1 [degF] Dr. Chetan Mata MD Work Phone: 3(600)466-691857 [place] [address] 11-15-2024 14:44-0400 Diastolic blood pressure 88 mm[Hg] Dr. Chetan Mata MD Work Phone: 5(427)181-885131 [place] [address] 11-15-2024 14:44-0400 Heart rate 79 /min Dr. Chetan Mata MD Work Phone: 2(742)751-232357 [place] [address] 11-15-2024 14:44-0400 Respiratory rate 16 /min Dr. Chetan Mata MD Work Phone: 5(709)572-847457 [place] [address] 11-15-2024 14:44-0400 SaO2% (BldA) [Mass fraction] 100 % Dr. Chetan Mata MD Work Phone: 0(520)374-761731 [place] [address] 11-15-2024 14:44-0400 Systolic blood pressure 120 mm[Hg] Dr. Chetan Mata MD Work Phone: [facility] 11-15-2024 12:06-0400 Body height 185.[address] Chetan Mata MD Work Phone: [facility] 02-19-2024 15:51-0400 Body height 185.4 cm Katiana Bragg PA-C Work Phone: [facility] 02-19-2024 15:51-0400 Body mass index (BMI) [Ratio] 26.12 kg/m2 Katiana Bragg PA-C Work Phone: [facility] 02-19-2024 15:51-0400 Body weight 89.81 kg Katiana Bragg PA-C Work Phone: [facility] 02-04-2024 15:58-0400 Body temperature 97.3 [degF] Deana Gonzalez MD Work Phone: [facility] 02-04-2024 15:58-0400 Diastolic blood pressure 73 mm[Hg] Deana Gonzalez MD Work Phone: [facility] 02-04-2024 15:58-0400 Heart rate 80 /min Deana Gonzalez MD Work Phone: [facility] 02-04-2024 15:58-0400 Respiratory rate 18 /min Deana Gonzalez MD Work Phone: [facility] 02-04-2024 15:58-0400 SaO2% (BldA) [Mass fraction] 96 % Deana Gonzalez MD Work Phone: [facility] 02-04-2024 15:58-0400 Systolic blood pressure 114 mm[Hg] Deana Gonzalez MD Work Phone: [facility] 01-28-2024 06:42-0400 Body height 185.4 cm Deana Gonzalez MD Work Phone: [facility] 01-28-2024 06:42-0400 Body mass index (BMI) [Ratio] 26.12 kg/m2 Deana Gonzalez MD Work Phone: [facility] 01-28-2024 06:42-0400 Body weight 89.81 kg Deana Gonzalez MD Work Phone: [facility] 01-27-2024 09:57-0400 Body height 185.4 cm Stewart rodriguez MD Work Phone: [facility] 01-27-2024 09:57-0400 Body mass index (BMI) [Ratio] 26.12 kg/m2 Stewart Robison MD Work Phone: [facility] 01-27-2024 09:57-0400 Body temperature 98.2 [degF] Stewart rodriguez MD Work Phone: [facility] 01-27-2024 09:57-0400 Body weight 89.81 kg Stewart rodriguez MD Work Phone: [facility] 01-27-2024 09:57-0400 Diastolic blood pressure 84 mm[Hg] Stewart Robison MD Work Phone: [facility] 01-27-2024 09:57-0400 Heart rate 63 /min Stewart rodriguez MD Work Phone: [facility] 01-27-2024 09:57-0400 Respiratory rate 18 /min Stewart rodriguez MD Work Phone: [facility] 01-27-2024 09:57-0400 SaO2% (BldA) [Mass fraction] 96 % Stewart Robison MD Work Phone: [facility] 01-27-2024 09:57-0400 Systolic blood pressure 152 mm[Hg] Stewart Robison MD Work Phone: [facility] 01-02-2024 11:02-0400 Body height 180.3 cm Toya Jacobsen PA-C Work Phone: [facility] 01-02-2024 11:02-0400 Body mass index (BMI) [Ratio] 28.76 kg/m2 Toya Jacobsen PA-C Work Phone: [facility] 01-02-2024 11:02-0400 Body temperature 97.39 [degF] Toya Jacobsen PA-C Work Phone: [facility] 01-02-2024 11:02-0400 Body weight 93.55 kg Toya Jacobsen PA-C Work Phone: [facility] 01-02-2024 11:02-0400 Diastolic blood pressure 74 mm[Hg] Toya Jacobsen PA-C Work Phone: [facility] 01-02-2024 11:02-0400 Heart rate 56 /min Toyamakenna Liaugh PA-C Work Phone: [facility] 01-02-2024 11:02-0400 Respiratory rate 18 /min Toya Slabaugh PA-C Work Phone: [facility] 01-02-2024 11:02-0400 SaO2% (BldA) [Mass fraction] 100 % Toya Guillermoaugh PA-C Work Phone: [facility] 01-02-2024 11:02-0400 Systolic blood pressure 159 mm[Hg] Toya Slabaugh PA-C Work Phone: [facility] 02-19-2023 11:28-0400 Body height 180.3 cm Joe Michael HYDRO PNEUMATIC TESTER.BUILDING EQUIPMENT OPERATOR Work Phone: [facility] 02-19-2023 11:28-0400 Body temperature 97.81 [degF] Joe Michael HYDRO PNEUMATIC TESTER.BUILDING EQUIPMENT OPERATOR Work Phone: [facility] 02-19-2023 11:28-0400 Body weight 98.88 kg Joe Michael HYDRO PNEUMATIC TESTER.BUILDING EQUIPMENT OPERATOR Work Phone: [facility] 02-19-2023 11:28-0400 Diastolic blood pressure 64 mm[Hg] Joe Michael HYDRO PNEUMATIC TESTER.BUILDING EQUIPMENT OPERATOR Work Phone: [facility] 02-19-2023 11:28-0400 Heart rate 70 /min Joe Michael HYDRO PNEUMATIC TESTER.BUILDING EQUIPMENT OPERATOR Work Phone: [facility] 02-19-2023 11:28-0400 Respiratory rate 16 /min Joe Michael HYDRO PNEUMATIC TESTER.BUILDING EQUIPMENT OPERATOR Work Phone: [facility] 02-19-2023 11:28-0400 SaO2% (BldA) [Mass fraction] 99 % Joe Michael HYDRO PNEUMATIC TESTER.BUILDING EQUIPMENT OPERATOR Work Phone: [facility] 02-19-2023 11:28-0400 Systolic blood pressure 120 mm[Hg] Joe Michael HYDRO PNEUMATIC TESTER.BUILDING EQUIPMENT OPERATOR Work Phone: [facility] 11-22-2022 11:05-0400 Body height 185.4 cm Guilherme Fallon MD Work Phone: [facility] 11-22-2022 11:05-0400 Body mass index (BMI) [Ratio] 28.89 kg/m2 Guilherme Fallon MD Work Phone: [facility] 11-22-2022 11:05-0400 Body weight 99.34 kg Guilherme Fallon MD Work Phone: [facility] 11-22-2022 11:05-0400 Diastolic blood pressure 72 mm[Hg] Guilherme Fallon MD Work Phone: [facility] 11-22-2022 11:05-0400 Heart rate 58 /min Guilherme Fallon MD Work Phone: [facility] 11-22-2022 11:05-0400 SaO2% (BldA) [Mass fraction] 96 % Guilherme Fallon MD Work Phone: [facility] 11-22-2022 11:05-0400 Systolic blood pressure 125 mm[Hg] Guilherme Fallon MD Work Phone: [facility] 10-26-2022 11:45-0400 Diastolic blood pressure 76 mm[Hg] Larissa Denton HYDRO PNEUMATIC TESTER - BUILDING EQUIPMENT OPERATOR Work Phone: [facility] 10-26-2022 11:45-0400 Systolic blood pressure 128 mm[Hg] Larissa Denton HYDRO PNEUMATIC TESTER - BUILDING EQUIPMENT OPERATOR Work Phone: [facility] 10-26-2022 11:25-0400 Body height 185.4 cm Larissa Denton APR N - BUILDING EQUIPMENT OPERATOR Work Phone: [facility] 10-26-2022 11:25-0400 Body mass index (BMI) [Ratio] 29.42 kg/m2 Larissa Denton HYDRO PNEUMATIC TESTER - BUILDING EQUIPMENT OPERATOR Work Phone: [facility] 10-26-2022 11:25-0400 Body weight 101.15 kg Larissa Denton APR N - BUILDING EQUIPMENT OPERATOR Work Phone: [facility] 10-26-2022 11:25-0400 Heart rate 58 /min Larissa Bertin APR N - BUILDING EQUIPMENT OPERATOR Work Phone: [facility] 10-26-2022 11:25-0400 SaO2% (BldA) [Mass fraction] 98 % Larissa Denton HYDRO PNEUMATIC TESTER - BUILDING EQUIPMENT OPERATOR Work Phone: [facility] 09-05-2022 09:57-0400 Diastolic blood pressure 74 mm[Hg] Guilherme Fallon MD Work Phone: [facility] 09-05-2022 09:57-0400 Systolic blood pressure 162 mm[Hg] Guilherme Fallon MD Work Phone: [facility] 09-05-2022 09:25-0400 Body height 185.4 cm Guilherme Fallon MD Work Phone: [facility] 09-05-2022 09:25-0400 Body mass index (BMI) [Ratio] 31.27 kg/m2 Guilherme Fallon MD Work Phone: [facility] 09-05-2022 09:25-0400 Body weight 107.5 kg Guilherme Fallon MD Work Phone: [facility] 09-05-2022 09:25-0400 Heart rate 56 /min Guihlerme Fallon MD Work Phone: [facility] 09-05-2022 09:25-0400 SaO2% (BldA) [Mass fraction] 98 % Guilherme Fallon MD Work Phone: [facility] 08-15-2022 08:27-0400 Body height 185.4 cm Matthew Perez PA-C Work Phone: [facility] 08-15-2022 08:27-0400 Body mass index (BMI) [Ratio] 31.14 kg/m2 Matthew Perez PA-C Work Phone: [facility] 08-15-2022 08:27-0400 Body temperature 97.2 [degF] Matthew Perez PA-C Work Phone: [facility] 08-15-2022 08:27-0400 Body weight 107.05 kg Matthew Perez PA-C Work Phone: [facility] 08-15-2022 08:27-0400 Diastolic blood pressure 62 mm[Hg] Matthew Perez PA-C Work Phone: [facility] 08-15-2022 08:27-0400 Heart rate 55 /min Matthew Perez PA-C Work Phone: [facility] 08-15-2022 08:27-0400 Systolic blood pressure 140 mm[Hg] Matthew Perez PA-C Work Phone: [facility] 08-08-2022 10:42-0400 Diastolic blood pressure 82 mm[Hg] Guilherme Fallon MD Work Phone: [facility] 08-08-2022 10:42-0400 Systolic blood pressure 154 mm[Hg] Guilherme Fallon MD Work Phone: [facility] 08-08-2022 09:19-0400 Body height 185.4 cm Guilherme Fallon MD Work Phone: [facility] 08-08-2022 09:19-0400 Body mass index (BMI) [Ratio] 31.14 kg/m2 Guilherme Fallon MD Work Phone: [facility] 08-08-2022 09:19-0400 Body weight 107.05 kg Guilherme Fallon MD Work Phone: [facility] 08-08-2022 09:19-0400 Heart rate 74 /min Guilherme Fallon MD Work Phone: [facility] 08-08-2022 09:19-0400 SaO2% (BldA) [Mass fraction] 99 % Giulherme Fallon MD Work Phone: [facility] 05-28-2022 17:31-0500 Body weight 106.14 kg eLtty Shen HYDRO PNEUMATIC TESTER.BUILDING EQUIPMENT OPERATOR Work Phone: [facility] 05-28-2022 17:31-0500 Diastolic blood pressure 87 mm[Hg] Letty Shen HYDRO PNEUMATIC TESTER.BUILDING EQUIPMENT OPERATOR Work Phone: [facility] 05-28-2022 17:31-0500 Heart rate 64 /min Letty Shen HYDRO PNEUMATIC TESTER.BUILDING EQUIPMENT OPERATOR Work Phone: [facility] 05-28-2022 17:31-0500 Respiratory rate 16 /min Letty Shen HYDRO PNEUMATIC TESTER.BUILDING EQUIPMENT OPERATOR Work Phone: [facility] 05-28-2022 17:31-0500 SaO2% (BldA) [Mass fraction] 100 % Letty Shen HYDRO PNEUMATIC TESTER.BUILDING EQUIPMENT OPERATOR Work Phone: [facility] 05-28-2022 17:31-0500 Systolic blood pressure 153 mm[Hg] Letty Shen HYDRO PNEUMATIC TESTER.BUILDING EQUIPMENT OPERATOR Work Phone: [facility] 09-01-2020 11:06-0400 Diastolic blood pressure 88 mm[Hg] Abilio Pike MD Work Phone: [facility] Work Phone: 09-01-2020 11:06-0400 Heart rate 88 [...] 15:28-0400 BP Diastolic 85 mm[Hg] [facility] [place] 01-30-2020 15:28-0400 BP Systolic 153 mm[Hg] Alex Louis [employer] , [place] 01-30-2020 15:28-0400 Pulse (Heart Rate) 59 /min [facility] [place] 01-30-2020 15:28-0400 Pulse Oximetry 96 % [facility] [place] 01-30-2020 15:28-0400 Respiratory Rate 16 /min Alex Louis [facility] [employer] [place] 01-30-2020 13:40-0400 BMI (Body Mass Index) 34.02 kg/m2 [facility] [place] 01-30-2020 13:40-0400 Body Temperature 98.49 [degF] Alex [employer] , [place] 01-30-2020 13:40-0400 Body weight 120.2 kg [facility] [place] 01-30-2020 13:40-0400 Height 188 cm [facility] [place] Encounters Encounter Date Encounter Type Care Provider Facility Start: 12-04-2024 Admission to [facility] Randalldallas Ferris [facility] Work Phone: Start: 12-04-[address] Chetan Mata MD Work Phone: [facility] Start: 12-03-2024 ambulatory No Primary Car e Physician Facility:[facility] Start: 11-28-2024 End: 11-29-2024 Emergency department patient visit Dr. Chetan Mata MD Work Phone: -Emergency Department Work Phone: Start: 11-20-2024 End: 11-20-2024 ambulatory Mary Munoz RN [facility] Start: 11-20-2024 End: 11-20-2024 Patient encounter procedure Mary Munoz RN [facility] Start: 11-19-2024 End: 11-25-2024 Telephone encounter Guilherme Fallon MD Work Phone: [facility] Comment on above: Orders Start: 11-19-2024 ambulatory Leidy [place] Fa cility:[facility] Start: 11-19-2024 Registered Referred Leidy Valadez MD -[facility] Start: 11-18-2024 Non-patient / Non-visit Dr. Luca Doe [facility] Work Phone: Start: 11-17-2024 Non-patient / Non-visit Dr. Luca Doe [facility] Work Phone: Start: 11-16-2024 Non-patient / Non-visit Dr. Luca Doe [facility] Work Phone: Start: 11-16-2024 ambulatory [facility] Facility:[facility] Start: 11-16-2024 Non-patient / Non-visit [facility] Start: 11-15-2024 ambulatory Luca Yeh Facilit y:[facility] Start: 11-15-2024 End: 11-18-2024 Evaluation and management of inpatient Dr. 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 (Primary Dx) Start: 02-19-2024 End: 02-19-2024 ambulatory [facility] Start: 02-19-2024 End: 02-19-2024 Subsequent hospital visit by physician Dave Dickson [facility] Comment on above: 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 Start: 02-19-2024 End: 02-19-2024 ambulatory [facility] Start: 01-27-2024 End: 01-27-2024 Emergency department patient visit DEANA GONZALEZ [facility] Start: 01-27-2024 End: 02-04-2024 Evaluation and management of inpatient DEZ Jose HOOVER [facility] Work Phone: Comment on above: Closed fracture of l eft femur, unspecified fracture morphology, unspecified portion of femur, initial encounter (Multi) (Primary Dx); Periprosthetic fracture of proximal end of femur Start: 01-27-2024 End: 01-27-2024 Emergency department patient visit STEWART ROBISON [facility] Work Phone: Comment on above: 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, initial encounter (Multi) (Primary Dx) Start: 01-07-2024 End: 01-27-2024 ambulatory [facility] Start: 01-07-2024 End: 01-27-2024 Patient encounter procedure Martine [facility] Start: 01-02-2024 End: 01-02-2024 ambulatory GUILHERME FALLON Facility:[facility] Start: 01-02-2024 End: 01-02-2024 Patient encounter procedure Toya Jacobsen PA-C Work Phone: [facility] Comment on above: Bilateral impacted c erumen (Primary Dx) Start: 02-19-2023 End: 02-19-2023 ambulatory DEYANIRA GRAHAM Facility:[facility] Start: 02-19-2023 End: 02-19-2023 Office outpatient new 30 minutes Joe Guo APRN.CNP Work Phone: [facility] Comment on above: Puncture wound of le ft index finger (Primary Dx); Localized erythema; Visit for wound check Start: 01-03-2023 Telephone encounter Guilherme stubbs MD Work Phone: [facility] Comment on above: Orders Start: 12-24-2022 Telephone encounter Guilherme stubbs MD Work Phone: [facility] Comment on above: Results Start: 12-07-2022 End: 12-07-2022 ambulatory Guilherme Fallon MD Work Phone: [facility] Comment on above: Arrived Start: 11-22-2022 End: 11-22-2022 Assay of hemosiderin, quant Guilherme Fallon MD Work Phone: [facility] Work Phone: Start: 11-22-2022 End: 11-22-2022 Patient encounter procedure Guilherme Fallon MD Work Phone: [facility] Comment on above: Routine general medi sherry examination at health care facility (Primary Dx); Primary hypertension; Elevated PSA; Vaccine refused by patient Start: 10-26-2022 End: 10-26-2022 Office outpatient visit 25 minutes Larissa Denton APRN - BUILDING EQUIPMENT OPERATOR Work Phone: [facility] Comment on above: Primary hypertension (Primary Dx); Dizziness Start: 10-18-2022 Telephone encounter Guilherme stubbs MD Work Phone: [facility] Start: 09-06-2022 End: 09-06-2022 ambulatory Guilherme Fallon MD Work Phone: [facility] Comment on above: Other specified abno rmal findings of blood chemistry (Primary Dx) Start: 09-05-2022 End: 09-05-2022 Office outpatient visit 25 minutes Guilherme Fallon MD Work Phone: [facility] Comment on above: Primary hypertension (Primary Dx); Elevated TSH Start: 08-17-2022 ambulatory [facility] Start: 08-17-2022 Patient encounter procedure [facility] Start: 08-15-2022 End: 08-15-2022 Office outpatient visit 15 minutes Matthew Perez PA-C Work Phone: [facility] Comment on above: Pain due to onychomy cosis of toenails of both feet (Primary Dx); Age-related physical debility; Enlarged and hypertrophic nails Start: 08-09-2022 End: 08-09-2022 ambulatory Guilherme Fallon MD Work Phone: [facility] Comment on above: Essential (primary) hypertension (Primary Dx) Start: 08-08-2022 End: 08-08-2022 Office outpatient visit 40 minutes Guilherme Fallon MD Work Phone: [facility] Comment on above: Primary hypertension (Primary Dx); Dizziness and giddiness; Observed sleep apnea; Enlarged and hypertrophic nails; Newly recognized murmur Start: 05-28-2022 End: 05-28-2022 Patient encounter procedure Letty Shen APRN.BUILDING EQUIPMENT OPERATOR Work Phone: [facility] Comment on above: Elevated blood press ure reading (Primary Dx) Start: 11-30-2021 End: 11-30-2021 Subsequent hospital visit by physician Guilherme Fallon MD Work Phone: [facility] Comment on above: Injury of left [...] Dx) Start: 12-05-2017 End: 12-05-2017 Patient encounter [facility] Start: 12-03-2017 End: 12-03-2017 Patient encounter [facility] Start: 11-28-2017 End: 11-28-2017 Patient encounter [facility] Start: 11-26-2017 End: 11-26-2017 Patient encounter [facility] Start: 11-21-2017 End: 11-21-2017 Patient encounter [facility] Start: 11-14-2017 End: 11-14-2017 Patient encounter [facility] Start: 11-07-2017 End: 11-07-2017 Patient encounter [facility] Procedures Date Procedure Procedure Detail Performing Clinician [...] Author Start: 08-10-2027 Lipid panel Lipid Panel [facility] Start: 12-07-2025 Diabetes Screening Diabetes Screening [facility] Start: 01-11-2025 Influenza vaccination Influenza Vaccine (#1) [facility] Start: 12-04-2024 Esophagogastroduodenoscopy EGD (Not Applicable) [facility] Start: 12-04-2024 [facility] Start: 12-04-2024 Administration of blood product [facility] Start: 12-04-2024 Computed tomography of abdomen and pelvis with contrast CTA Abd/Pelvis W/WO Contrast [facility] Start: 12-04-2024 CT Abdomen and Pelvis [facility] Start: 12-04-2024 Leukocyte reduced red blood cells [facility] Start: 12-04-2024 [facility] Start: 12-04-2024 Consultation [facility] Start: 12-04-2024 End: 12-04-2024 Patient encounter procedure 12/04/2024 11:00 AM EDT Office Visit [address] [place] [phone] Guilherme Fallon MD [facility] [address] [place] [id number] [facility] Start: 11-29-2024 [facility] Start: 11-18-2024 Patient discharge [facility] Start: 11-15-2024 Elevation of affected extremity [facility] Start: 11-15-2024 Notification of physician [facility] Start: 11-15-2024 Application of intermittent pneumatic compression device [facility] Start: 11-15-2024 Following clinical pathway protocol [facility] Start: 11-15-2024 Aspiration precautions [facility] Start: 11-15-2024 Assessment of risk of venous thromboembolism [facility] Start: 11-15-2024 Cardiac monitoring [facility] Start: 11-15-2024 Catheterization of vein [facility] Start: 11-15-2024 Consultation [facility] Start: 11-15-2024 Elevation of head of bed [facility] Start: 11-15-2024 Exercises [facility] Start: 11-15-2024 Insertion of catheter into peripheral vein [facility] Start: 11-15-2024 Notification of physician [facility] Start: 11-15-2024 Patient referral to dietitian [facility] Start: 11-15-2024 Providing care according to standard [facility] Start: 11-15-2024 Provision of activity privileges [facility] Start: 11-15-2024 Referral to occupational therapist [facility] Start: 11-15-2024 Referral to service [facility] Start: 11-15-2024 Speech therapy assessment [facility] Start: 11-15-2024 Tobacco use cessation education [facility] Start: 11-15-2024 End: 11-15-2024 [facility] Start: 11-15-2024 Vital signs measurements [facility] Start: 11-15-2024 Magnetic resonance angiography of head without contrast MRA Head ONLY without Contrast [facility] Start: 11-15-2024 Magnetic resonance angiography of neck without contrast MRA Neck without Contrast [facility] Start: 11-15-2024 MRI of brain without contrast Brain without Contrast [facility] Start: 11-15-2024 CT of head without contrast Brain/Head without Contrast [facility] Start: 11-15-2024 CT Unspecified body region WO contrast [facility] Start: 11-15-2024 Verification routine [facility] Start: 11-15-2024 Admission procedure [facility] Start: 11-15-2024 Hospital admission, emergency, from emergency room, medical nature [facility] Start: 11-15-2024 Blood culture Blood Culture [facility] Start: 11-15-2024 Chloride measurement, urine [facility] Start: 11-15-2024 Osmolality of Urine [facility] Start: 11-15-2024 Sodium [Moles/volume] in Urine [facility] Start: 11-15-2024 End: 11-15-2024 [facility] Start: 05-13-2024 Medicare Advantage Annual Wellness Visit Medicare Advantage Annual Wellness Visit [facility] Start: 03-17-2024 End: 03-17-2024 Patient encounter procedure 03/17/2024 2:00 PM EST Office Visit [facility] [address] [facility] [address] [place] [address] Katiana Bragg PA-C [address] Department [place] [address] [facility] Start: 03-11-2024 End: 03-11-2024 Patient encounter procedure 03/11/2024 1:40 PM EDT Office Visit [facility] [address] [place] [phone] Guilherme Fallno MD [address] [place] [address] [facility] Start: 02-14-2024 End: 02-14-2024 Patient encounter procedure 02/14/2024 11:15 AM EDT Office Visit [facility] [address] [facility] 5th [place] [address] Katiana Bragg PA-C [address] Department [place] [address] [facility] Start: 01-12-2024 COVID-19 Vaccine ( season) COVID-19 Vaccine ( season) [facility] Start: 01-12-2024 COVID-19 Vaccine ( season) COVID-19 Vaccine ( season) [facility] Start: 01-12-2024 Influenza vaccination Influenza Vaccine (#1) [facility] Start: 11-25-2023 End: 07-15-2024 Patient encounter procedure 11/25/2023 10:20 AM EDT Office Visit [facility] [address] [facility] [address] [place] [phone] Guilherme Fallon MD [address] [place], [place] [id number] [facility] Start: 11-23-2023 Depression Screening Depression Screening [facility] Start: 05-13-2023 Advance Directive Discussion Advance Directive Discussion [facility] Start: 05-13-2023 Medicare Advantage Annual Wellness Visit Medicare Advantage Annual Wellness Visit [facility] Start: 01-11-2023 Covid-19 Vaccine () Covid-19 Vaccine () [facility] Start: 01-11-2023 Influenza vaccination [facility] Start: 01-08-2023 End: 01-08-2023 Patient encounter procedure 01/08/2023 8:00 AM EDT Appointment [facility] [address] [place] [phone] Guilherme Fallon MD [address] [place] [address] [facility] Start: 11-22-2022 End: 11-23-2023 CBC panel - Blood by Automated count CBC Lab Routine Primary hypertension Expected: 11/22/2022 (Approximate), Expires: 11/23/2023 [facility] Work Phone: Comment on above: Expected: 11/22/2022 (Approximate), Expi res: 11/23/2023 Start: 11-22-2022 End: 11-23-2023 Comprehensive metabolic 1998 panel - Serum or Plasma Comprehensive metabolic panel Lab Routine Primary hypertension Expected: 11/22/2022 (Approximate), Expires: 11/23/2023 [facility] Comment on above: Expected: 11/22/2022 (Approximate), Expi res: 11/23/2023 Start: 11-22-2022 End: 11-23-2023 PSA screening PSA Screening Lab Routine Elevated PSA Expected: 11/22/2022 (Approximate), Expires: 11/23/2023 [facility] Comment on above: Expected: 11/22/2022 (Approximate), Expi res: 11/23/2023 Start: 11-22-2022 End: 11-22-2022 Patient encounter procedure [facility] Start: 10-29-2022 End: 10-29-2022 Patient encounter procedure 10/29/2022 Office Visit Family Medicine Guilherme Fallon MD [address] [place] [address] [address] [place], [place] [phone] [facility] Start: 10-28-2022 Annual Wellness Visit (AWV) Annual Wellness Visit (AWV) [facility] Start: 10-27-2022 Depression Screen Depression Screen [facility] Start: 10-27-2022 Prostate specific antigen measurement Prostate Specific Antigen (PSA) Screening or Monitoring [facility] Start: 10-05-2022 End: 10-05-2022 Patient encounter procedure 10/05/2022 Office Visit Family Medicine Guilherme Fallon MD [facility] [address] [place], [place] [id number] [facility] Start: 10-01-2022 End: 10-01-2022 Patient encounter procedure 10/01/2022 Appointment Cardiology [facility] Start: 09-25-2022 End: 09-25-2022 Patient encounter procedure 09/25/2022 Office Visit Sleep Medicine Guilherme Fallon MD [address] [place] [address] [address] [place], [place] [id number] [facility] Start: 09-05-2022 End: 09-06-2023 Thyrotropin [Units/volume] in Serum or Plasma TSH Lab Routine Primary hypertension Elevated TSH Expected: 09/05/2022 (Approximate), Expires: 09/06/2023 [facility] Work Phone: Comment on above: Expected: 09/05/2022 (Approximate), Expi res: 09/06/2023 Start: 09-05-2022 End: 09-06-2023 Thyroxine (T4) free [Mass/volume] in Serum or Plasma T4, free Lab Routine Elevated TSH Expected: 09/05/2022 (Approximate), Expires: 09/06/2023 [facility] Comment on above: Expected: 09/05/2022 (Approximate), Expi res: 09/06/2023 Start: 09-05-2022 End: 09-06-2023 Triiodothyronine (T3) [Mass/volume] in Serum or Plasma T3 Lab Routine Elevated TSH Expected: 09/05/2022 (Approximate), Expires: 09/06/2023 [facility] Comment on above: Expected: 09/05/2022 (Approximate), Expi res: 09/06/2023 Start: 09-05-2022 End: 09-05-2022 Patient encounter procedure 09/05/2022 Office Visit Family Medicine Guilherme Fallon MD [facility] [place] [address] [facility] Start: 08-08-2022 End: 08-09-2023 Home sleep test Home sleep test Sleep Center Routine Primary hypertension Observed sleep apnea Expected: 08/08/2022 (Approximate), Expires: 08/09/2023 [facility] Work Phone: Comment on above: Expected: 08/08/2022 (Approximate), Expi res: 08/09/2023 Start: 08-08-2022 End: 08-09-2023 Lipid 1996 panel - Serum or Plasma Lipid panel Lab Routine Primary hypertension Expected: 08/08/2022 (Approximate), Expires: 08/09/2023 [facility] Comment on above: Expected: 08/08/2022 (Approximate), Expi res: 08/09/2023 Start: 08-08-2022 End: 08-09-2023 Thyrotropin [Units/volume] in Serum or Plasma TSH Lab Routine Primary hypertension Expected: 08/08/2022 (Approximate), Expires: 08/09/2023 [facility] Comment on above: Expected: 08/08/2022 (Approximate), Expi res: 08/09/2023 Start: 08-08-2022 End: 08-08-2024 US Heart Transthoracic Transthoracic echocardiogram (TTE) limited with contrast, bubble, strain, and 3D PRN CV Echocardiography Routine Newly recognized murmur Expected: 08/08/2022 (Approximate), Expires: 08/08/2024 [facility] Comment on above: Expected: 08/08/2022 (Approximate), Expi res: 08/08/2024 Start: 05-13-2022 ADVANCE DIRECTIVE DISCUSSION ADVANCE DIRECTIVE DISCUSSION [facility] Start: 05-13-2022 DEPRESSION ASSESSMENT DEPRESSION ASSESSMENT [facility] Start: 01-11-2022 Influenza vaccination [facility] Start: 01-11-2021 Influenza vaccination Flu vaccine (Season Ended) [facility] Work Phone: Start: 02-05-2020 Annual Wellness Visit (AWV) Annual Wellness Visit (AWV) [facility] Work Phone: Start: 01-12-2020 Influenza vaccination Flu vaccine (#1) [place], [place] Start: 2014 RSV High Risk: (Elderly (60+) or Population) (1 - 1-dose 75+ series) RSV High Risk: (Elderly (60+) or Population) (1 - 1-dose 75+ series) [facility] Start: 2014 RSV Immunization for Adults (1 - 1-dose 75+ series) RSV Immunization for Adults (1 - 1-dose 75+ series) [facility] Start: 07-18-2013 DIABETES SCREEN DIABETES SCREEN [facility] Start: 07-18-2013 Diabetes Screening Diabetes Screening [facility] Start: 2004 Pneumococcal 65+ years Vaccine (1 - PCV) Pneumococcal 65+ years Vaccine (1 - PCV) [facility] Start: 2004 Pneumococcal 65+ years Vaccine (1 of 1 - PPSV23) Pneumococcal 65+ years Vaccine (1 of 1 - PPSV23) [place] Start: 2004 Pneumococcal Vaccine: 65+ (1 - PCV) Pneumococcal Vaccine: 65+ (1 - PCV) [facility] Start: 2004 Pneumococcal Vaccine: 65+ (1 of 1 - PCV) Pneumococcal Vaccine: 65+ (1 of 1 - PCV) [facility] Start: 2004 Pneumococcal Vaccine: 65+ Years (1 - PCV) Pneumococcal Vaccine: 65+ Years (1 - PCV) [facility] Start: 2004 Pneumococcal Vaccine: 65+ Years (1 of 1 - PCV) Pneumococcal Vaccine: 65+ Years (1 of 1 - PCV) [facility] Start: 2004 PNEUMOCOCCAL: 65+ (1 - PCV) PNEUMOCOCCAL: 65+ (1 - PCV) [facility] Start: 1999 RSV Immunization aged 60 or older (1 - 1-dose 60+ series) RSV Immunization aged 60 or older (1 - 1-dose 60+ series) [facility] Start: 1999 RSV patients and/or patients aged 60+ years (1 - 1-dose 60+ series) RSV patients and/or patients aged 60+ years (1 - 1-dose 60+ series) [facility] Start: 1999 RSV Vaccine (1 - 1-dose 60+ series) RSV Vaccine (1 - 1-dose 60+ series) [facility] Start: 1989 Pneumococcal Vaccine: 50+ Years (1 of 1 - PCV) Pneumococcal Vaccine: 50+ Years (1 of 1 - PCV) [facility] Start: 1989 Shingles Vaccine (1 of 2) Shingles Vaccine (1 of 2) [facility] Start: 1989 SHINGRIX VACCINE (1 of 2) SHINGRIX VACCINE (1 of 2) [facility] Start: 1989 Zoster Vaccines (1 of 2) Zoster Vaccines (1 of 2) [facility] Start: 1961 DTaP/Tdap/Td Vaccines (1 - Tdap) DTaP/Tdap/Td Vaccines (1 - Tdap) [facility] Start: 1958 DTaP/Tdap/Td vaccine (1 - Tdap) DTaP/Tdap/Td vaccine (1 - Tdap) [facility] Start: 1958 DTaP/Tdap/Td Vaccines (1 - Tdap) DTaP/Tdap/Td Vaccines (1 - Tdap) [facility] Start: 1958 Urine microalbumin profile [facility] Start: 1957 Anxiety Screening Anxiety Screening [facility] Start: 1957 Depression Screening Depression Screening [facility] Start: 1955 COVID-19 Vaccine (1) COVID-19 Vaccine (1) [facility] Work Phone: Start: 1951 Depression Screening Depression Screening [facility] Start: 1939 COVID-19 Vaccine (#1) COVID-19 Vaccine (#1) [facility] Start: 1939 Annual wellness visit Welcome to Medicare Visit [facility] Start: 1939 Hepatitis B Vaccines (1 of 3 - 3-dose series) Hepatitis B Vaccines (1 of 3 - 3-dose series) [facility] Start: 1939 Medicare Annual Wellness Visit Medicare Annual Wellness Visit (AWV) [facility] End: 01-27-2024 ECG 12 Lead [facility] Service Area Work Phone: Comment on above: Once for 1 Occurrences starting 01/27/20 until 01/27/2024 Hematocrit [Volume F raction] of Blood [facility] Hemoglobin [Mass/vol ume] in Blood [facility] Hemoglobin A1c/Hemog lobin.total in Blood [facility] End: 01-27-2024 Incentive spirometry Instruct Incentive spirometry Instruct Respiratory Care Routine Once for 1 Occurrences starting 01/27/2024 until 01/27/2024 [facility] Work Phone: Comment on above: Once for 1 Occurrences starting 01/27/20 until 01/27/2024 OUTSIDE PROCEDURE SCAN OUTSIDE P ROCEDURE SCAN Procedures Ordered: 08/09/2022 [facility] Comment on above: Ordered: 08/09/2022 OUTSIDE PROCEDURE SCAN OUTSIDE P ROCEDURE SCAN Procedures Ordered: 09/06/2022 [facility] Comment on above: Ordered: 09/06/2022 OUTSIDE PROCEDURE SCAN OUTSIDE P ROCEDURE SCAN Procedures Ordered: 12/07/2022 [facility] Comment on above: Ordered: 12/07/2022 Patient Education ED Pressure In jury ED Wound Care [facility] Work Phone: Removal impacted cer umen irrigation/lvg unilat AMBULATORY EAR LAVAGE/IRRIGATION Procedures Routine Bilateral impacted cerumen Ordered: 01/02/2024 [facility] Work Phone: Comment on above: Ordered: [...] 04-16-2024 XR Pelvis 1 or 2 Views [facility] Service Area Work Phone: Comment on above: Once for 1 Occurrences starting 04/16/20 until 04/16/2024 Payers Date Payer Category Payer Medicare [id number] 2024 Self-pay 2023 Medicare (Managed Care) [facility] [id number] 2023 Unknown [id number] 2022 Medicare [id number] 1.13.680. [id number] 2022 Medicare HMO [employer] [id number]. [id number] 2020 Unknown [id number]. 1.13.159. 2.7.3.983512.315 2019 Unknown [id number] 1.2.840.887624.1.13.239. 2.7.3.133752.315 1939 Unknown [id number] 2.16.840.1.336126.3.579. 2.1245 1939 Unknown [id number] 2.16.840.1.663599.3.579. 2.1245 1939 Unknown [id number] 2.16.840.1.828953.3.579. 2.1245 1939 Unknown [id number] 2.16.840.1.246543.3.579. 2.1242 1939 Unknown [id number] 2.16.840.1.395717.3.579. 2.1242 1939 Unknown [id number] 2.16.840.1.891587.3.579. 2.1242 1939 Unknown [id number] 2.16.840.1.227221.3.579. 2.1243 1939 Unknown [id number] 2.16.840.1.782132.3.579. 2.1243 1939 Unknown [id number] 2.16.840.1.057566.3.579. 2.1243 Unknown [id number] 2.16.840.1.121036.3.579. 2.462 Unknown [id number] 2.16.840.1.287475.3.579. 2.462 Unknown [id number] 2.16.840.1.312884.3.579. 2.462 Unknown [id number] 2.16.840.1.185719.3.579. 2.462 Unknown [id number] 2.16.840.1.464782.3.579. 2.462 Unknown [id number] 2.16.840.1.075406.3.579. 2.462 Unknown [id number] 2.16.840.1.897291.3.579. 2.462 Unknown [id number] 2.16.840.1.246050.3.579. 2.462 Unknown [id number] 2.16.840.1.806555.3.579. 2.462 Social History Date Type Detail Facility Tobacco smoking status ARIS Unknown if ever smoked [place], [place] Start: 1940 Sex Assigned At Not on file [place] Start: 11-20-2021 End: 04-16-2024 Exposure to SARS-CoV-2 (event) Not sure [place] Start: 08-28-2020 End: 12-04-2024 Tobacco smoking status ARIS Former smoker [facility] Start: 12-09-1974 End: 02-04-1990 History of tobacco [...] History SDOH Physica l Activity DPW 7 [facility] Work Phone: Start: 10-27-2021 History SDOH Physica l Activity MPS 3 [facility] Work Phone: Start: 10-27-2021 History SDOH Financial 5 [facility] Work Phone: Start: 02-05-2022 End: 11-22-2022 Cigarettes smoked current (pack per day) - Reported [address] [facility] Start: 04-22-2019 Alcohol Comment Occasionally [facility] Start: 08-08-2022 Alcohol Comment half of a glas s of wine with dinner [facility] Start: 10-26-2022 End: 11-22-2022 Tobacco use panel [facility] How often to you hav e a drink containing alcohol? 4 or more times a week [facility] How many standard drinks containing alcohol do you have on a typical day? 1 or 2 [facility] How often do you hav e 6 or more drinks on 1 occasion? Never [facility] National Score (1-100), lower number is lower risk 65 [facility] Start: 01-28-2024 Tobacco smoking status NHIS Never smoked tobacco [facility] How often to you hav e a drink containing alcohol? 2-3 time sa week [facility] Work Phone: How many standard drinks containing alcohol do you have on a typical day? 3 or 4 [facility] Work Phone: In the past 12 months, was there a time when you were not able to pay the mortgage or rent on time? No [facility] Work Phone: Tobacco smoking status NHIS Tobacco smoking consumption unknown [facility] Work Phone: Start: 1940 Sex Assigned At Male [facility] Start: 12-11-2021 Sex Male (finding) [facility] NEGATED: Highlighted rowStart: NINF History of tobacco use Passive smoker [facility] Work Phone: Medical Equipment Procedure Code Equipment Code Equipment Origin al Text Equipment Identifier Dates Screw, Variable Angle, 46mm, Locking, St - [id number] Start: 01-28-2024 Screw, Variable Angle, 44mm, Locking, St - [id number] Start: 01-28-2024 Screw, Variable Angle, 40mm, Locking, St - [id number] Start: 01-28-2024 Screw, Variable Angle, 36mm, Locking, St - [id number] Start: 01-28-2024 Screw, Variable Angle, 32mm, Locking, St - [id number] Start: 01-28-2024 Screw, Varable Angle Lkg, Self Tap, 3.5 X 38mm - [id number] Start: 01-28-2024 Cable W/Crimp, 1 .7 X 750mm, Ss, Sterile - [id number] Start: 01-28-2024 Screw, Cortical, Self-Tapping, 4.5 X 38 Mm, Stainless Steel - [id number] Start: 01-28-2024 Screw, Lock 5.[address] T25 - [id number] Start: 01-28-2024 Cable W/Crimp, 1 .7 X 750mm, Ss, Sterile - [id number] Start: 01-28-2024 Pin 4.5 Cerclage Positioning - [id number] Start: 01-28-2024 Comment on above: Description: per neil l only jdr 01/28 Screw, Variable Angle, 50mm, Locking, St - [id number] Start: 01-28-2024 Connecting Screw F/[id number] Gt Ring Attchmt Plate [id number] Start: 01-28-2024 Comment on above: Description: per neil l only jdr 01/28 8 Hole Ppfx Plate [id number] Start: 01-28-2024 Comment on above: Description: per neli l only jdr 01/28 Gt Attach Plate [id number] Start: 01-28-2024 Comment on above: Description: per neil l only jdr 01/28 Goals Date Patient Goal Desired Activity /State Functional Status Date Assessment Result Facility 11-18-2024 Functional status Ambulates;Stand and piv ot [facility] Work Phone: Mental Status Date Assessment Result Facility 12-04-2024 Cognitive function Level Of Cons ciousness Awake;Alert;Appropriate;Follow s Commands [facility] Work Phone: 11-29-2024 Cognitive function Level Of Cons ciousness Awake;Alert;Appropriate;Follow s Commands [facility] Work Phone: 11-18-2024 Cognitive function Voice/Name [facility] Work Phone: 11-15-2024 Cognitive function Level Of Cons ciousness Awake;Alert;Appropriate;Follow s Commands [facility] Work Phone: Clinical Notes 08-28-2020 to 12-04-2024 Note Date & Type Note Facility 12-04-2024 Discharge summary [facility] 12-04-2024 Discharge summary Note Date/Time December 04, 2024 3:12pm [facility] Medical Records Department [address] [place] [address] Emergency Department Summary 12/04/24 MR#: [id number] Acct: [id number] Name: PHILLY JOEL Rep #:[id number] : 1940 84 From: Ravinder Richard DO PCP: Dr. Ciro Ku MD Status:[facility] Location: [place] [address] Ravinder Richard DO on [...] no complaints at this point in time. [facility] Medical History Weakness of lower extremity Acute [...] 71.3 H Lymph % (Auto) 7.2 L [place] % (Auto) 17.9 H Eos % (Auto) [...] Sl. Cloudy Urine pH 7.0 Ur Specific [place] 1.010 Urine Protein 30 H Urine Glucose [...] MD [Primary Care Provider] - Print Language: Gibraltarian Disposition Disposition: Acute Care Hospital [facility] What to do if you have Problems For any increased pain, shortness of breath, bleeding, nausea or vomiting, chestpain, or any unexpected problems, contact your Primary Care Provider. Call [facility] ([phone]) or report to the closest Emergency Room. Call 911 if necessary. 12/04/24 1801 <Electronically signed by Ravinder Richard DO> Cosigner Signature (if applicable): CC: Dr. Ciro Ku MD ~ Signed [facility] Work Phone: 1(591) 970-329507-24-2025 NotePatient does not currently meet our referral criteria. Home-Based Primary Care Programs (current as of 08/2024) [facility]: Medical Care at Home [phone] [facility]: only accepts Medicare Part B and [employer] insurance [phone] [facility]: House Call Program: - [phone] [facility]: This program would work with an office-based PCP to help manage as much as possible without going to the doctor's office [phone] Fallon in case tomorrow's appointment still happens and this information is appropriate. In [facility], the [facility] option may be best given proximity to [address]? Krystal - can you call Dina with this information given Hiral is out? I strongly recommend they try to keep the appointment with Dr. Fallon tomorrow as at least a starting point.[facility] [id number] Discharge summary [facility] Medical Records Department [address] [place] [address] Emergency Department Summary 11/29/24 MR#: [id number] Acct: [id number] Name: PHILLY JOEL Rep #:[id number] : 1940 84 From: Haris Elise MD PCP: Dr. Guilherme Fallon MD Status:REG ER Location: ED HPI History of Present Illness Chief Complaint: Other, Pain/Inj Detail of Chief Complaint: sacral wounds Informant: patient Narrative Narrative: 84-year-old male who has been generally weak and after walking presenting to [facility] around midnight for evaluation of wounds on his buttocks that have been therefor maybe a little over a week according to him. He denies any fevers chills significant discharge or bleeding from them. He was admitted to [facility] for rehab, but he hated it there [...] they do not seem to be healing. [facility] Medical History Weakness of lower extremity Acute [...] and get better. [facility] but he [...] As soon as possible (call for appt: [phone]) Guilherme Fallon MD [Primary Care Provider] - 1 Week Print Language: Gibraltarian Disposition Disposition: Home, Self Care What to do if you have Problems For any increased pain, shortness of breath, bleeding, nausea or vomiting, chestpain, or any unexpected problems, contact your Primary Care Provider. Call [facility] ([phone]) or report tothe closest Emergency Room. Call 911 if necessary. 11/29/24 0030 Cosigner Signature (if applicable): CC: Dr. Guilherme Fallon MD; Wound Center ~ Signed [facility]07-16-2025 Telephone encounter Note* Telephone Encounter - Oxana Michelle - 11/25/2024 8:59 AM EDT Tried calling to schedule. No answer. Vmbox is full Sent Second Funnel message. [facility]wq[facility]-97-4932 Miscellaneous Notes* Telephone Encounter - Oxana Michelle - 11/25/2024 8:59 AM EDT Tried calling to schedule. No answer. Vmbox is full Sent Second Funnel message. * Telephone Encounter - Guilherme Fallon MD - 11/25/2024 8:19 AM EDT He will need a face to face visit for the authorization of more at home services so would need an appointment. * Telephone Encounter - Betsy Salamanca - 11/24/2024 11:16 AM EDT Name of caller: dina Contact phone number: [phone] Relationship to Patient: caregiver Provider: Practice: [facility] Chief Complaint/Reason for Call: Dina calling with phone number to [facility] for in home health care that was authorized by office. Dina states has fax of [phone]. Dina says their phone is [phone]. Dina is requesting authorization be faxed to [facility].Please advise. Best time of day [...] of caller: Dina Haynes Contact phone number: [phone] Relationship to Patient: Caregiver Provider: Dr. Fallon [...] Name of caller: Milka Contact phone number: [phone] Relationship to Patient: [facility] Provider: Dr. 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 B: pt was in [facility] but signed himself out AMA yesterday [...] Protocols used: Information Only Call - No Swolzh-XBCGD-YK * Telephone Encounter - Guilherme Fallon MD - 11/20/2024 9:16 AM EDT Please contact APS and inform them of the situation and the urgency - It does not sound like he is able to care for himself nor is he mentally capable, though I have not evaluated him myself. He signed himself out AMA yesterday from the assisted. * Telephone Encounter - Iman Jain - 11/20/2024 8:43 AM EDT Name of caller: Dina Contact phone number: [phone] Relationship to Patient: [facility] Provider: Practice: [facility] Chief [...] Name of caller: Dina Contact phone number: [phone] Relationship to Patient: [facility] Provider: Practice: [facility] Chief Complaint/Reason for Call: Dina needs verbal order that provider will follow patient for homecare orders. Please advise Dina and leave voicemail on secure line. Best time of day caller can be reached: any Patient advised that office/PCP has 24-48 business hours to return their call: Yes documented in this encounterSMercy Health St. [facility] HospitalRlcxqq89-28-4770 Telephone encounter Note* Telephone Encounter - Guilherme Fallon MD - 11/25/2024 8:19 AM EDT He will need a face to face visit for the authorization of more at home services so would need an appointment. [facility]zrrxv12-64-9821 Telephone encounter Note* Telephone Encounter - Betsy Salamanca - 11/24/2024 11:16 AM EDT Name of caller: dina Contact phone number: [phone] Relationship to Patient: caregiver Provider: Practice: [facility] Chief Complaint/Reason for Call: Dina calling with phone number to [facility] for in home health care that was authorized by office. Dina matthew has fax of [phone]. Dina says their phone is [phone]. Dina is requesting authorization be faxed to [facility].Please advise. Best time of day caller can be reached: AM Patient advised that office/PCP has 24-48 business hours to return their call: N/A [employer] SystemsGyxujv19-36-8017 Telephone encounter Note* Telephone Encounter - Guilherme Fallon MD - 11/23/2024 1:04 PM EDT He has home care I am not sure what status they are referring to. Still would be best to contact APS for follow up to make sure nothing else is needed on their end and any concerns they may have. [employer] SystemsConlti73-11-7943 Telephone encounter Note* Telephone Encounter - Sindi Dacosta - 11/23/2024 9:18 AM EDT Name of caller: Dina Haynes Contact phone number: [phone] Relationship to Patient: Caregiver Provider: Dr. Fallon Practice: [facility] Chief Complaint/Reason for Call: Caller stated [...] business hours to return their call: Yes [employer] SystemsGzuyts44-79-0272 Telephone encounter Note* Telephone Encounter - Guilherme Fallon MD - 11/23/2024 8:31 AM EDT Noted. Can we follow up with APS and see what came of their visit and if they have concerns? [facility]Shqrcf93-05-3015 Telephone encounter Note* Telephone Encounter - Maria [...] relayed to the patient from encounter: Yes [facility] HospitalTtzvcb04-44-1857 Telephone encounter Note* Telephone Encounter - Guilherme [...] the end of the day if possible. [facility] HospitalRflibi13-85-6548 Telephone encounter Note* Telephone Encounter - Fermin Brown - 11/20/2024 1:11 PM EDT Name of caller: Milka Contact phone number: [phone] Relationship to Patient: [facility] Provider: Dr. Fallon Practice: [facility] Chief Complaint/Reason [...] business hours to return their call: No [facility] HospitalMktqsh00-02-2092 Telephone encounter Note* Telephone Encounter - Guilherme Fallon MD - 11/20/2024 9:56 AM EDT Spoke with APS giving details of the concern, signed out AMA after stroke rule out, unable to care for self at home, sitting in urine and feces. Contact info provided. 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 B: pt was in [facility] but signed himself out AMA yesterday [...] Protocols used: Information Only Call - No Fearws-QTBIJ-ZI [facility] HospitalLwhjrc95-09-4625 Telephone encounter Note* Telephone Encounter - Guilherme Fallon MD - 11/20/2024 9:17 AM EDT Multiple encounters for this. Closing this one. [facility] HospitalVxucof06-91-7446 Miscellaneous Notes* Telephone Encounter - Guilherme Fallon MD - 11/20/2024 9:17 AM EDT Multiple encounters for this. Closing this one. 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 B: pt was in [facility] but signed himself out AMA yesterday [...] Protocols used: Information Only Call - No Wtcqew-PWKSS-PX documented in this encounterSMercy Health St. Anne HospitalIlrlaw30-35-8557 Telephone encounter Note* Telephone Encounter - Guilherme Fallon MD - 11/20/2024 9:16 AM EDT Please contact APS and inform them of the situation and the urgency - It does not sound like he is able to care for himself nor is he mentally capable, though I have not evaluated him myself. He signed himself out AMA yesterday from the assisted. 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 B: pt was in [facility] but signed himself out AMA yesterday [...] Protocols used: Information Only Call - No Uvvxzw-QPSZG-GZ [facility] HospitalCxpsla38-30-5392 Telephone encounter Note* Telephone Encounter - Iman Jain - 11/20/2024 8:43 AM EDT Name of caller: Dina Contact phone number: [phone] Relationship to Patient: [facility] Provider: Practice: [facility] Chief [...] business hours to return their call: Yes [employer] SystemsYqsehy39-37-4946 Telephone encounter Note* Telephone Encounter - Katie Frank - 11/19/2024 10:45 AM EDT Name of caller: Dina Contact phone number: [phone] Relationship to Patient: [facility] Provider: Practice: [facility] Chief Complaint/Reason for Call: Dina needs verbal order that provider will follow patient for homecare orders. Please advise Dina and leave voicemail on secure line. Best time of day caller can be reached: any Patient advised that office/PCP has 24-48 business hours to return their call: Yes [facility] Nmelku87-56-2515 Discharge summary Author Luca Yeh [facility] Note Date/Time November 18, 2024 3:42p [facility] Medical Records Department [address] [place] [address] Transfer to [facility] MR#: [id number] Acct: [id number] Name: PHILLY JOEL Rep #:[id number] : 1940 84 From: Luca Yeh DO PCP: Dr. Guilherme Fallon MD Status:ADM IN Certification of patient admission REQUIRED AT TIME OF ADMISSION. I CERTIFY THAT POST-HOSPITAL ECF SERVICES ARE REQUIRED TO BE GIVEN ON AN IN-PATIENT BASIS BECAUSE OF THE ABOVE NAMED PATIENT'S NEED FOR GROUP HOME CARE ON A CONTINUING BASIS FOR THE CONDITION(S) FOR WHICH HE/SHE WAS RECEIVING IN-PATIENT HOSPITAL SERVICES PRIOR TO HIS/HER TRANSFER TO THE [facility]. 11/18/24 1542<Electronically signed by Luca Yeh DO> [...] he will need temporary placement in a assisted facility due to his debility at the present time. #2 lower extremity weakness-MRI was performed today and it was negative for acute CVA, patient refused to undergo an MRA of the head and neck #3 hyponatremia-etiology unclear we will place the patient on sodium chloride when he is discharged to assisted facility. #4 acute anemia-etiology unclear, patient's hemoglobin [...] a follow-up appointment after discharge from the correction with his family physician, he will need [...] Note (A week after discharge from the correction, you will need to be set up with an appointment to see a TAVR physician regarding your aortic stenosis) NOT,DEFINED [Non-Staff] - Disposition Disposition (needs filled in before D/C Order can be placed): [facility] Facility 11/18/24 1542 <Electronically signed by Luca Yeh DO> Cosigner Signature (if applicable): CC: Dr. Guilherme Fallon MD; Dr. Shannan Patterson MD ~ [facility] Work Phone: 1(967) 436-571807-09-2025 Progress note Author Luca [facility]ures[facility] Note Date/Time November 18, 2024 3:07p [facility] Medical Records Department [address] [place] [address] Progress Note - Hospitalist 11/17/24 1711 MR#: [id number] Acct: [id number] Name: PHILLY JOEL Rep #:[id number] : 1940 84 From: Luca Yeh DO PCP: Dr. Guilherme Fallon MD Status:ADM IN Location: [place] [address] Reason for Visit Reason for Visit: Diagnoses [...] 81.9 H, Lymph % (Auto) 6.1 L, Klamath % (Auto) 10.0, Eos % (Auto) 0.8, [...] he will need temporary placement in a assisted facility due to his debility at the [...] 35 minutes Charges/Coding Visit Charges Inpatient E&M: 40959 Subs Hosp L2 NIHSS NIHSS Nursing Documentation NIHSS Nursing Documentation: NIHSS: Ischemic Stroke/TIA Start: 11/15/24 15:09 Text: For PCU Patients: NIH and Neuro Check every 4 Status: Complete hours, PRN and with change in RN caregiver. Freq: [id number] Protocol: Activity Type Activity Date Activity User [...] Cosigner Signature (if applicable): CC: ~ Signed [facility] Work Phone: 1(746) 211-578007-09-2025 Discharge summary [facility] Medical Records Department [address] [place] [address] Transfer to [facility] MR#: [id number] Acct: [id number] Name: PHILLY JOEL Rep #:[id number] : 1940 84 From: Luca Yeh DO PCP: Dr. Guilherme Fallon MD Status:ADM IN Certification of patient admission REQUIRED AT TIME OF ADMISSION. I CERTIFY THAT POST-HOSPITAL ECF SERVICES ARE REQUIRED TO BE GIVEN ON AN IN-PATIENT BASIS BECAUSE OF THE ABOVE NAMED PATIENT'S NEED FOR GROUP HOME CARE ON A CONTINUING BASIS FOR THE [...] he will need temporary placement in a assisted facility due to his debility at thepresent time. #2 lower extremity weakness-MRI was performed today and it was negative for acute CVA, patient refused to undergo an MRA of the head and neck #3 hyponatremia-etiology unclear we will place the patient on sodium chloride when he is dischargedto assisted facility. #4 acute anemia-etiology unclear, patient's hemoglobin [...] a follow-up appointment after discharge from the correction with his family physician, he will need [...] Note (A week after discharge from the correction, you will need to be set up with an appointment to see a TAVR physician regarding your aorticstenosis) NOT,DEFINED [Non-Staff] - Disposition Disposition (needs filled in before D/C Order can be placed): [facility] Facility 11/18/24 1542 Cosigner Signature (if applicable): CC: Dr. Guilherme Fallon MD; Dr. Shannan Patterson MD ~ [facility]07-09-2025 [facility] Medical Records Department [address] [place] [address] Discharge Summary 11/18/24 1542 MR#: [id number] Acct: [id number] Name: PHILLY JOEL Rep #: [id number] : 1940 84 From: Luca Yeh DO PCP: Dr. Guilherme Fallon MD Status:DIS IN [facility] Prov[facility] Date of Admission: 11/15/24 Date of Discharge: 11/18/24 Primary Care Physician: Dr. Guilherme Fallon MD Reason For Visit: CVA R/O Diagnosis Discharge Diagnosis (1) Generalized weakness: Status: Acute Code(s): R53.1 - Weakness Plan 1. Generalized weakness-secondary to deconditioning and advanced age, PT OT will continue to see the patient, he will need temporary placement in a assisted facility due to his debility at the present time. #2 lower extremity weakness-MRI was performed today and it was negative for acute CVA, patient refused to undergo an MRA of the head and neck #3 hyponatremia-etiology unclear we will place the patient on sodium chloride when he is discharged to assisted facility. #4 acute anemia-etiology unclear, patient's hemoglobin [...] was seen in the emergency room at [facility] with chief complaint of generalized weakness, patient [...] was recommended that he go to a assisted facility for short- term rehab services. On [...] normal On 11/18/2024, patient was transferred to [facility] in stable condition for inpatient skilled care. [...] with fatty infiltration. 4. (more content not included)...[facility]07-09-2025 Progress note [facility] Medical Records Department [address] [place] [address] Progress Note - Hospitalist 11/17/24 1711 MR#: [id number] Acct: [id number] Name: PHILLY JOEL Rep #:[id number] : 1940 84 From: Luca Yeh DO PCP: Dr. Guilherme Fallon MD Status:ADM IN Location: [place] [address]- 1 Reason for Visit Reason for Visit: [...] 81.9 H, Lymph % (Auto) 6.1 L, [place] % (Auto) 10.0, Eos % (Auto) 0.8, [...] he will need temporary placement in a assisted facility due to his debility at thepresent [...] 35 minutes Charges/Coding Visit Charges Inpatient E&M: 81073 Subs Hosp L2 NIHSS NIHSS Nursing Documentation NIHSS Nursing Documentation: NIHSS: Ischemic Stroke/TIA Start: 11/15/24 15:09 Text: For PCU Patients: NIH and Neuro Check every 4 Status: Complete hours, PRN and with change in RN caregiver. Freq: [id number] Protocol: Activity Type Activity Date Activity User [...] Cosigner Signature (if applicable): CC: ~ Signed [facility]07-09-2025 Hospital Discharge instructionsAdditional Instructions Patient will need a follow-up appointment after discharge from the correction with his family physician, he will need to be set up to see a TAVR physician due to his severe aortic stenosis. [facility]: [facility] Phone: 1(689) 980-715707-09-2025 Radiology Diagnostic study note [facility] Imaging Services [address] [place], [place] [id number] Abdomen/Pelvis W IV Cont ONLY MR#: [id number] Acct: [id number] Name: PHILLY JOEL Rep #: [id number] : 1940 M 84 From: Fidelia Albarran MD PCP: Dr. Guilherme Fallon MD Status: ADM IN Study:Abdomen/Pelvis W IV Cont ONLY Date of E xam: 11/18/24 Exam# [id number] Ordering Dr: Luca Lei DO EXAM: CT [...] cm simple right renal cyst. Reading Location: [facility] CC: Dr. Guilherme Fallon MD; Dr. Luca Yeh DO ~ Chief Deputy: Signed [facility]07-08-2025 Progress note Author Luca Yeh [facility] Note Date/Time November 17, 2024 8:35a m [facility] Medical Records Department [address] [place] [address] Progress Note - Hospitalist 11/16/24 1847 MR#: [id number] Acct: [id number] Name: PHILLY JOEL Rep #:[id number] : 1940 84 From: Luca Yeh DO PCP: Dr. Guilherme Fallon MD Status:ADM IN Location: [place] [address] Reason for Visit Reason for Visit: Diagnoses Other symptoms and signs involving the musculoskeletal system (11/15/24) Subjective Subjective Patient was seen and examined today, he consented to an MRI of the brain but refused to have an MRA of the head and neck performed. MRI of the brain was unremarkable. Due to patient's weakness with PT and OT, he requested to go to [facility] for inpatient skilled services. Patient lives by [...] 80.3 H, Lymph % (Auto) 5.5 L, [place] % (Auto) 12.3 H, Eos % (Auto) [...] as described above. Reading Location: [facility] Chest X-Ray 11/15/24 22:50 IMPRESSION: No radiographic evidence of an acute cardiopulmonary process. Reading Location: [facility] Brain MRI 11/16/24 06:00 IMPRESSION: No evidence of restricted diffusion. No acute brain abnormality detected only limited sequences Age-related changes involution Right maxillary sinusitis Reading Location: [facility] Physical Exam Const alert, oriented [...] he will need temporary placement in a assisted facility due to his debility at the [...] 35 minutes Charges/Coding Visit Charges Inpatient E&M: 79856 Subs Hosp L2 NIHSS NIHSS Nursing Documentation NIHSS Nursing Documentation: NIHSS: Ischemic Stroke/TIA Start: 11/15/24 15:09 Text: For PCU Patients: NIH and Neuro Check every 4 Status: Complete hours, PRN and with change in RN caregiver. Freq: [id number] Protocol: Activity Type Activity Date Activity User [...] Cosigner Signature (if applicable): CC: ~ Signed [facility] Work Phone: 1(677) 237-796407-08-2025 Progress note [facility] Medical Records Department [address] [place] [address] Progress Note - Hospitalist 11/16/24 1847 MR#: [id number] Acct: [id number] Name: PHILLY JOEL Rep #:[id number] : 1940 84 From: Luca Yeh DO PCP: Dr. Guilherme Fallon MD Status:ADM IN Location: [place] [address] Reason for Visit Reason for Visit: Diagnoses Other symptoms and signs involving the musculoskeletal system (11/15/24) Subjective Subjective Patient was seen and examined today, he consented to an MRI of the brain but refused to have an MRAof the head and neck performed. MRI of the brain was unremarkable. Due to patient's weakness with PT and OT, he requested to go to [facility] for inpatient skilled services. Patient lives by [...] Random Sodium 68, Urine Creatinine 121.00, Urine Sropiurkh12.2, Urine Chloride < 20, Urine Urea Nitrogen [...] 80.3 H, Lymph % (Auto) 5.5 L, [place] % (Auto) 12.3 H, Eos % (Auto) [...] as described above. Reading Location: [facility] Chest X-Ray 11/15/24 22:50 IMPRESSION: No radiographic evidence of an acute cardiopulmonary process. Reading Location: [facility] Brain MRI 11/16/24 06:00 IMPRESSION: No evidence of restricted diffusion. No acute brain abnormality detected only limited sequences Age-related changes involution Right maxillary sinusitis Reading Location: [facility] Physical Exam Const alert, oriented [...] he will need temporary placement in a assisted facility due to his debility at thepresent [...] 35 minutes Charges/Coding Visit Charges Inpatient E&M: 35678 Subs Hosp L2 NIHSS NIHSS Nursing Documentation NIHSS Nursing Documentation: NIHSS: Ischemic Stroke/TIA Start: 11/15/24 15:09 Text: For PCU Patients: NIH and Neuro Check every 4 Status: Complete hours, PRN and with change in RN caregiver. Freq: [id number] Protocol: Activity Type Activity Date Activity User [...] Cosigner Signature (if applicable): CC: ~ Signed [facility]07-06-2025 Radiology Diagnostic study note [facility] Imaging Services [address] [place], [place] [id number] Chest 1 View (Portable) MR#: [id number] Acct: [id number] Name: PHILLY JOEL Rep #: [id number] : 1940 M 84 From: Pet er Peer DO PCP: Dr. Guilherme Fallon MD Status: ADM IN Study:Chest 1 View (Portable) Date of Exam: 11/15/24 Exam# [id number] Ordering Dr: Nataliya Patterson MD PROCEDURE: CHEST [...] acute cardiopulmonary process. Reading Location: [facility] CC: Dr. Guilherme Fallon MD; Dr. Shannan Patterson MD ~ Chief Deputy: Signed [facility]07-06-2025 Progress note Author Shannan Patterson [facility] Note Date/Time November 15, 2024 9:05p m [facility] Medical Records Department [address] [place] [address] Progress Note - Hospitalist 11/15/24 1532 MR#: [id number] Acct: [id number] Name: PHILLY JOEL Rep #:[id number] : 1940 84 From: Shannan Patterson MD PCP: Dr. Guilherme Fallon MD Status:ADM IN Location: [place] [address] Hospitalist Note Patient did spike a mild [...] Cosigner Signature (if applicable): cc: ~* Signed [facility] Work Phone: 1(808) 889-710707-06-2025 Radiology Diagnostic study note [facility] Imaging Services [address] [place], [place] [id number] Hips B/L min 2 views w/ Pelvis MR#: [id number] Acct: [id number] Name: PHILLY JOEL Rep #: [id number] : 1940 M 84 From: Pet er Peer PCP: Dr. Guilherme Fallon MD Status: ADM IN Study:Hips B/L min 2 views w/ Pelvis Date of Exam: 11/15/24 Exam# [id number] Ordering Dr: Nataliya Patterson MD PROCEDURE: HIPS [...] Unremarkable soft tissues Other: No fractures of igiugig surrounding bone RAD/Hips B/L min 2 views w/ Pelvis IMPRESSION: No acute fracture identified. Hardware as described above. Reading Location: [facility] CC: Dr. Guilherme Fallon MD; Dr. Shannan Patterson MD ~ Chief Deputy: Signed [facility]07-06-2025 Discharge summary Author Chetan Mata [facility] Note Date/Time November 15, 2024 7:07p m [facility] Medical Records Department [address] [place] [address] Emergency Department Summary 11/15/24 MR#: [id number] Acct: [id number] Name: PHILLY JOEL Rep #:[id number] : 1940 84 From: Chetan Mata MD PCP: Dr. Guilherme Fallon MD Status:ADM IN Location: [facility] NSV698- 1 HPI <JOLIE Ibarra - Last Filed: [...] call EMS today to bring him in. [facility] <JOLIE Ibarra - Last Filed: 11/15/24 14:51> [facility] Medical History (Updated 11/15/24 @ [...] 78.3 H Lymph % (Auto) 6.4 L [place] % (Auto) 13.6 H Eos % (Auto) [...] Clarity Clear Urine pH 7.0 Ur Specific [place] 1.010 Urine Protein 30 H Urine Glucose [...] Mata MD - Last Filed: 11/15/24 19:07> [facility] MDM Narrative Medical decision making narrative: [...] a woman in there who is his ski patrol director. She apparently left [facility] for the holiday and he did [...] 78.3 H Lymph % (Auto) 6.4 L [place] % (Auto) 13.6 H Eos % (Auto) [...] Clarity Clear Urine pH 7.0 Ur Specific [place] 1.010 Urine Protein 30 H Urine Glucose [...] with proteinuria Disposition Disposition: Acute Care Hospital [facility] Discharge Date/Time: 11/15/24 15:05 What to do if you have Problems For any increased pain, shortness of breath, bleeding, nausea or vomiting, chestpain, or any unexpected problems, contact your Primary Care Provider. Call [facility] ([phone]) or report to the closest Emergency Room. Call 911 if necessary. 11/15/24 1907 <Electronically signed by Chetan Mata MD> Cosigner Signature (if applicable): 11/15/24 1451 <Electronically signed by Dina DAVE> CC: Dr. Guilherme Fallon MD ~ Signed [facility] Work Phone: 1(544) 417-221807-06-2025 Progress note [facility] Medical Records Department [address] [place] [address] Progress Note - Hospitalist 11/15/24 1532 MR#: [id number] Acct: [id number] Name: PHILLY JOEL Rep #:[id number] : 1940 84 From: Shannan Patterson MD PCP: Dr. Guilherme Fallon MD Status:ADM IN Location: [place] [address] Hospitalist Note Patient did spike a mild [...] Cosigner Signature (if applicable): cc: ~* Signed [facility]07-06-2025 Discharge summary [facility] Medical Records Department [address] [place] [address] Emergency Department Summary 11/15/24 MR#: [id number] Acct: [id number] Name: PHILLY JOEL Rep #:[id number] : 1940 84 From: Chetan Mata MD PCP: Dr. Guilherme Fallon MD Status:ADM IN Location: [place] [address] HPI History of Present Illness Chief Complaint: [...] to call EMS todayto bring him in. 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 She apparently left town for the holiday [...] 78.3 H Lymph % (Auto) 6.4 L [place] % (Auto) 13.6 H Eos % (Auto) [...] Clarity Clear Urine pH 7.0 Ur Specific [place] 1.010 Urine Protein 30 H Urine Glucose [...] with proteinuria Disposition Disposition: Acute Care Hospital [facility] Discharge Date/Time: 11/15/24 15:05 What to do if you have Problems For any increased pain, shortness of breath, bleeding, nausea or vomiting, chestpain, or any unexpected problems, contact your Primary Care Provider. Call [facility] ([phone]) or report tothe closest Emergency Room. Call 911 if necessary. 11/15/24 1907 Cosigner Signature (if applicable): 11/15/24 1451 CC: Dr. Guilherme Fallon MD ~ Signed [facility]07-06-2025 History and physical note Author Shannan Patterson [facility] Note Date/Time November 15, 2024 3:03p [facility] Medical Records Department [address] [place] [address] H&P Exam - Hospitalist 11/15/24 1441 MR#: [id number] Acct: [id number] Name: PHILLY JOEL Rep #:[id number] : 1940 84 From: Shannan Patterson MD PCP: Dr. Guilherme Fallon MD Status:ADM IN Location: [facility] SID100- 1 HPI - General General Date of Admission: 11/15/24 Date of Service: 11/15/24 Chief Complaint: Right leg weakness HPI Narrative PHILLY JOEL, is a 84M with a history of hypertension and left femur break lastMarch requiring surgery at presented [facility] ED 11/15/2024 with weakness. In the ED [...] [facility] [...] to PCU as a stroke rule out [facility] Medical History (Updated 11/15/24 @ [...] 78.3 H, Lymph % (Auto) 6.4 L, [place] % (Auto) 13.6 H, Eos % (Auto) [...] Clarity Clear, Urine pH 7.0, Ur Specific Cam[place] 1.010, Urine Protein 30 H, Urine Glucose [...] Patterson MD Charges/Coding Visit Charges Inpatient E&M: 12822 Init Hosp L2 11/15/24 1503 <Electronically signed by Shannan Patterson MD> Cosigner Signature (if applicable): CC: Dr. Guilherme Fallon MD; Dr. Shannan Patterson MD~ Signed [facility] Work Phone: 1(827) 286-742307-06-2025 Evaluation note* Diagnosis Onset Date Resolution Status Admit Date Acute hyponatremia acute November 152024 2:42pm Generalized weakness acute November 15, 2024 2:42pm Weakness of lower extremity acute November 15, 2024 2:42pm [facility] Work Phone: 1(453) 641-904907-06-2025 Evaluation note* Diagnosis Onset Date Resolution Status Admit Date Acute hyponatremia inactive November 152024 2:42pm Generalized weakness inactive November 15, 2024 2:42pm Weakness of lower extremity inactive November 15, 2024 2:42pm [facility] Work Phone: 1(516) 986-407507-06-2025 Radiology Diagnostic study note [facility] Imaging Services [address] [place] [address] Brain/Head without Contrast MR#: [id number] Acct: [id number] Name: PHILLY JOEL Rep #: [id number] : 1940 M 84 From: Diandra Kirkpatrick MD PCP: Dr. Guilherme Fallon MD Status: ADM IN Study:Brain/Head without Contrast Date of Exa m: 11/15/24 Exam# [id number] Ordering Dr: Dina Andersen EXAM: BRAIN/HEAD WITHOUT [...] IMPRESSION: No acute intracranial finding. Reading Location: [facility] CC: Dr. Guilherme Fallon MD; JOLIE Ibarra ~ Chief Deputy: Signed [facility]07-06-2025 History and physical note [facility] Medical Records Department [address] [place] [address] H&P Exam - Hospitalist 11/15/24 1441 MR#: [id number] Acct: [id number] Name: PHILLY JOEL Rep #:[id number] : 1940 84 From: Shannan Patterson MD PCP: Dr. Guilherme Fallon MD Status:ADM IN Location: [facility] [id number]- 1 HPI - General General Date of Admission: 11/15/24 Date of Service: 11/15/24 Chief Complaint: Right leg weakness HPI Narrative PHILLY JOEL, is a 84M with a history of hypertension and left femur break lastMarch requiring surgery at presented [facility] ED 11/15/2024 with weakness. In the ED [...] [facility] [...] to PCU as a stroke rule out [facility] Medical History (Updated 11/15/24 @ [...] 78.3 H, Lymph % (Auto) 6.4 L, [place] % (Auto) 13.6 H, Eos % (Auto) [...] Clarity Clear, Urine pH 7.0, Ur Specific [place] 1.010, Urine Protein 30 H, Urine Glucose [...] Patterson MD Charges/Coding Visit Charges Inpatient E&M: 73401 Init Hosp L2 11/15/24 1503 Cosigner Signature (if applicable): CC: Dr. Guilherme Fallon MD; Dr. Shannan Patterson MD~ Signed [facility]10-09-2024 History of Present illness Narrative* Katiana Bragg PA-C - 02/19/2024 3:15 PM EDT History of Present Illness Philly Joel is a 83 y.o. male presenting today for post-op check from [facility] left periprosthetic proximal femur fracture on 01/28/2024. Overall doing ok. Has mild pain that is not requiring narcotics for pain control. Is currently at a assisted facility for rehab at this time, but [...] Dose Status acetaminophen (Tylenol) 325 mg tablet [id number] Take 3 tablets (975 mg) by mouth every 8 hours. Praful Ebenezer, PA-C Active bisacodyl (Dulcolax) 10 mg suppository [id number] Insert 1 suppository (10 mg) into the rectum once daily. Praful Ebenezer, PA-C Active calcium carbonate (Tums) 200 mg calcium chewable tablet [id number] Chew 1 tablet (500 mg) 4 times a day as needed for indigestion or heartburn. Praful Ebenezer, PA- C Active calcium carbonate-vitamin D3 (Oscal-500) 500 mg-10 mcg (400 unit) tablet [id number] Take 1 tablet bymouth 2 times a day. Jonah Taylor MD Active enoxaparin (Lovenox) 30 mg/0.3 mL syringe [id number] Inject 0.3 mL (30 mg) under the skin every 12 hours. Praflu Ebenezer, PA-C Active guaiFENesin (Mucinex) 600 mg 12 hr tablet [id number] Take 1 tablet (600 mg) by mouth 2 times a day as needed for cough. Do not crush, chew, or split. Praful Ebenezer, PA-C Active magnesium hydroxide (Milk of Magnesia) 400 mg/5 mL suspension [id number] Take 30 mL by mouth once daily. Praful Ebenezer, PA-C Active ondansetron (Zofran) 4 mg/2 mL injection [id number] Infuse 2 mL (4 mg) into a venous catheter every 4 hours if needed for nausea or vomiting. Praful Ebenezer, PA-C Active polyethylene glycol (Glycolax, Miralax) 17 gram packet [id number] Take 17 g by mouth 2 times a day. Praful Ebenezer, PA-C Active sennosides (Senokot) 8.6 mg tablet [id number] Take 1 tablet (8.6 mg) by mouth [...] Insecurity: No Food Insecurity (10/27/2021) Received from [facility] Hunger Vital Sign Worried About Running Out of Food in the Last Year: Never true Ran Out of Food in the Last Year: Never true Transportation Needs: No Transportation Needs (01/29/2024) PRAPARE - Transportation Lack of Transportation (Medical): No Lack of Transportation (Non-Medical): No Physical Activity: Sufficiently Active (10/27/2021) Received from [facility] Exercise Vital Sign Days of Exercise per Week: 7 days Minutes of Exercise per Session: 30 min Stress: No Stress Concern Present (10/27/2021) Received from [facility] [place] [facility] [employer] [facility] - Occupational Stress Questionnaire [...] agreement with the plan. [facility] Phone: 1(628) 718-897310-09-2024 Instructions* Patient Instructions* Katiana Bragg PA-C - [...] to hopefully advance weightbearing. Katiana Bragg PA-C [phone] [facility] Work Phone: 1(410) 888-487509-24-2024 Nurse Note* Lucy Mckeon RN - 02/04/2024 11:38 AM EDT Four eyes completed with Deborah Perry. [facility]-24-[facility] Nurse Note* Lucy Mckeon RN - 02/04/2024 11:38 AM EDT Four eyes completed with Deborah Perry. [facility] Work Phone: 1(892) 483-191209-24-2024 History of Present illness Narrative* MELANIE Alva - 02/04/2024 11:16 AM EDT Auth received for [facility]. [employer] TECHNICAL MANAGER requested 1330 stretcher transport. Pending Roundtrip confirmation. [place] complete and sent to SNF. 7000 completed. Will follow up on transport. 1203-[facility] confirmed 230 stretcher transport for discharge to [facility]. Report # [phone]. SW updated TCC, team, SNF, daughter, patient, and the floor. MELANIE Alva * Fermin De Luna PTA - 02/04/2024 11:11 AM EDT Physical Therapy Physical Therapy Treatment Patient Name: Philly Joel Department: [place] [address] Room: [address] [place] [address] Today's Date: 02/04/2024 Time Calculation Start Time: [...] L LE. pt verbalized completing HEP exercises, OUTPATIENT CODING SPECIALIST attempted to provide additional exercises however pt [...] shifting and to maintain NWB Outcome Measures: [facility] Basic Mobility Turning from your back to [...] Body Mechanics, taught by Fermin De Luna OUTPATIENT CODING SPECIALIST at 02/04/2024 11:10 AM. Learner: Patient Readiness: [...] OT Treatment Patient Name: Philly Joel Department: [facility] 6 Room: [address] [place] [address] Today's Date: 02/03/2024 Time Calculation Start Time: [...] ther ex bed leve Precautions: Hearing/Visual Limitations: QUILEUTE LE Weight Bearing Status: Left Non-Weight Bearing [...] rotation, chest press with scap retraction Outcome Measures:[facility] Daily Activity Putting on and taking off [...] Alva - 02/03/2024 10:05 AM EDT [facility]; direct precert team confirmed precert was initiated over the weekend. [employer] TECHNICAL MANAGER sent updates to SNF. Pending precert. Will continue to follow. MELANIE Alva * Kaleigh Cedillo Geoffrey, OUTPATIENT CODING SPECIALIST - 02/03/2024 9:25 AM EDT Physical Therapy Treatment Patient Name: Philly Joel Today's Date: 02/03/2024 Room: [address] [place] [address] Time Calculation Start Time: 824 Stop Time: [...] therapy upon approach Precautions: Precautions Hearing/Visual Limitations: QUILEUTE LE Weight Bearing Status: Left Non-Weight Bearing [...] Decreased tolerance for upright activites Outcome Measures: [facility] Basic Mobility Turning from your back to [...] Chen PA-C - 02/03/2024 6:56 AM EDT [facility] TRAUMA SERVICE - PROGRESS NOTE Patient Name: Philly Joel Admit Date: [id number] : 1940 AGE: 83 y.o. GENDER: male MECHANISM OF INJURY: 83M tx from [place] after mGLF LOC (yes/no?): no Anticoagulant / Anti-platelet Rx? (for what dx?): no Referring Facility Name (N/A for scene EMR run): [place] INJURIES: L periprosthetic femur fracture OTHER MEDICAL [...] Trauma, Critical Care, Acute Care Surgery Floor: 14683 TSU: 77326 CHIEF COMPLAINT / OVERNIGHT EVENTS: No acute [...] dressings clean, no strikethrough Compartments soft, compressible Board Liner Operator strength 5/5 bilaterally Dorsi/plantarflexion 5/5 bilaterally Skin: [...] pertinent for today's encounter. * Kaleigh Hale OUTPATIENT CODING SPECIALIST - 02/02/2024 12:11 PM EDT Physical Therapy Treatment Patient Name: Philly Joel Today's Date: 02/02/2024 Room: [address] [place] [address] Time Calculation Start Time: 1102 Stop Time: [...] therapy upon approach Precautions: Precautions Hearing/Visual Limitations: QUILEUTE LE Weight Bearing Status: Left Non-Weight Bearing [...] Decreased tolerance for upright activites Outcome Measures: [facility] Basic Mobility Turning from your back to [...] (Rehab/SNF/etc) Type of Post Acute Facility Services [facility] Expected Discharge Disposition SNF Does the patient need discharge transport arranged? Yes RoundTrip coordination needed? Yes [facility] [phone] when medically ready. Patient will require a pre cert. Will require updated therapy PT/OT to initiate pre cert. Updated clinicals submitted. * Lucy Chen PA-C - 02/02/2024 6:43 AM EDT [facility] TRAUMA SERVICE - PROGRESS NOTE Patient Name: Philly Joel Admit Date: 9150616 : 1940 AGE: 83 y.o. GENDER: male MECHANISM OF INJURY: 83M tx from [place] after mGLF LOC (yes/no?): no Anticoagulant / Anti-platelet Rx? (for what dx?): no Referring Facility Name (N/A for scene EMR run): [facility] [place] INJURIES: L periprosthetic femur fracture OTHER MEDICAL [...] Trauma, Critical Care, Acute Care Surgery Floor: 72386 TSICU: 13229 CHIEF COMPLAINT / OVERNIGHT EVENTS: No acute [...] thigh surgical dressings clean Compartments soft, compressible Board Liner Operator strength 5/5 bilaterally Dorsi/plantarflexion 5/5 bilaterally Skin: [...] Chen PA-C - 02/01/2024 3:54 PM EDT [facility] TRAUMA SERVICE - PROGRESS NOTE Patient Name: Philly Joel Admit Date: 9150616 : 1940 AGE: 83 y.o. GENDER: male MECHANISM OF INJURY: 83M tx from [place] after mGLF LOC (yes/no?): no Anticoagulant / Anti-platelet Rx? (for what dx?): no Referring Facility Name (N/A for scene EMR run): [facility] [place] INJURIES: L periprosthetic femur fracture OTHER MEDICAL [...] Trauma, Critical Care, Acute Care Surgery Floor: 52582 TSICU: 37441 CHIEF COMPLAINT / OVERNIGHT EVENTS: No acute [...] thigh surgical dressings clean Compartments soft, compressible Board Liner Operator strength 5/5 bilaterally Dorsi/plantarflexion LLE 5/5, 3/5 [...] Therapy Treatment Patient Name: Philly Joel Department: [place] [address] Room: [address] [place] [address] Today's Date: 02/01/2024 Time Calculation Start Time: [...] with PT. Subjective Precautions: Precautions Hearing/Visual Limitations: QUILEUTE LE Weight Bearing Status: Left Non-Weight Bearing [...] to supine.) Stairs Stairs: No Outcome Measures: [facility] Basic Mobility Turning from your back to [...] 12:13 PM Rosa Mcdermott PTA Rehab Office: [phone] * Shoshana Albrecht RN - 02/01/2024 11:35 AM EDT 02/01/24 1013 Discharge Planning Who is requesting discharge planning? Provider Home or Post Acute Services Post acute facilities (Rehab/SNF/etc) Type of Post Acute Facility Services [facility] Expected Discharge Disposition SNF ([facility] Spoke with daughter Dina [phone] to make her aware at this [facility]. Dina stated this is actually her FOC because it's the closest to her home so this is fine. Secure chat sent to direct submit team requesting for them to submit for precert. [facility] updated of above. Care Transitions team will continue to follow for discharge planning needs. Shoshana Albrecht RN Transitional Clinical Haematologist (TCC) [phone] or [phone] * Jinnyalis Moore OUTPATIENT CODING SPECIALIST - 01/31/2024 4:17 PM EDT Physical Therapy Physical Therapy Treatment Patient Name: Philly Joel Department: [place] [address] Room: [address] [place] [address] Today's Date: 01/31/2024 Time Calculation Start Time: [...] (<25% ROM), QS, GS x10 Outcome Measures: [facility] Basic Mobility Turning from your back to [...] 02/12/24 Pain - Adult * Cristiane Arce, HYDRO PNEUMATIC TESTER-BUILDING EQUIPMENT OPERATOR - 01/31/2024 2:59 PM EDT [facility] TRAUMA SERVICE - PROGRESS NOTE Patient Name: Philly Joel Admit Date: 9150616 : 1940 AGE: 83 y.o. GENDER: male MECHANISM OF INJURY: 83M tx from [place] after mGLF LOC (yes/no?): no Anticoagulant / Anti-platelet Rx? (for what dx?): no Referring Facility Name (N/A for scene EMR run): [place] INJURIES: L periprosthetic femur fracture OTHER MEDICAL [...] Patient was dicussed with Dr. Jeffrey Arce, HYDRO PNEUMATIC TESTER-BUILDING EQUIPMENT OPERATOR Trauma, Critical Care, and Acute Care Surgery Ext 79105 (floor), 83322 (ICU) CHIEF COMPLAINT / OVERNIGHT EVENTS: Patient [...] Results Component Value Date TSH 0.66 01/30/2024 [id number] 468 01/30/2024 VITD25 33 01/30/2024 Results from [...] and clinical correlation Confirmed by Daphne Hill ([id number]) on 01/28/2024 1:10:[address] abdomen pelvis w IV contrast Narrative: Interpreted By: Nevaeh Lind and Beyersdorf Conner STUDY: CT ABDOMEN PELVIS W IV CONTRAST; 01/27/2024 11:40 pm INDICATION: Signs/Symptoms:fall. COMPARISON: CT pelvis 01/27/2024 ACCESSION NUMBER(S): [id number] ORDERING CLINICIAN: HARINI MENDEZ TECHNIQUE: CT of [...] Grossman. Data analyzed and images interpreted at [facility], [place], [place]. MACRO: Critical Finding: See findings. Notification was initiated on 01/28/2024 at 12:59 am by Nevaeh Lind. (-YCF-) Instructions: Signed by: Nevaeh Lind 01/28/2024 12:59 AM Dictation workstation: [id number] XR chest 1 view Narrative: Interpreted By: Nevaeh Lind and Ohs Zachary STUDY: XR CHEST 1 VIEW; 01/27/2024 8:52 pm INDICATION: Signs/Symptoms:preop clearance. COMPARISON: None. ACCESSION NUMBER(S): [id number] ORDERING CLINICIAN: DEANA GONZALEZ FINDINGS: AP radiograph [...] Song Lozoya. This study was interpreted at [place], [place]. MACRO: None Signed by: Nevaeh Lind 01/28/2024 12:36 AM Dictation workstation: [id number] XR hip left with pelvis when performed 2 or 3 views, XR knee left 1-2 views Narrative: Interpreted By: Nevaeh Lind and Ohs Zachary STUDY: XR HIP LEFT WITH PELVIS WHEN PERFORMED 2 OR 3 VIEWS; XR KNEE LEFT 1-2 VIEWS 01/27/2024 8:52 pm INDICATION: Signs/Symptoms:femur fracture COMPARISON: Pelvic radiograph 01/27/2024. ACCESSION NUMBER(S): [id number]; [id number] ORDERING CLINICIAN: DEANA GONZALEZ TECHNIQUE: AP view [...] Song Lozoya. This study was interpreted at [place], [place]. MACRO: None Signed by: Nevaeh Lind 01/28/2024 12:34 AM Dictation workstation: [id number] DATA: EKG: QTC Encounter Date: 01/27/24 ECG 12 Lead Result Value Ventricular Rate 67 Atrial Rate 67 UT Interval 192 QRS Duration 90 QT Interval 392 QTC Calculation(Bazett) 414 P [place] 30 R [place] 39 T [place] 34 QRS Count 10 Q Onset 220 P Onset 124 P Offset 185 T Offset 416 QTC [place] 407 Narrative Normal sinus rhythm Normal ECG No previous ECGs available See ED provider note for full interpretation and clinical correlation Confirmed by Daphne Hill ([id number]) on 01/28/2024 1:10:44 AM Anti-psychotics in 48 [...] PLAN: - please engage music therapy and poultry cutter services Please consider the following general measures [...] but has seen Dr. Guilherme Fallon at [facility] previously Goals of Care: -Health care power of state attorney: none, wants his daughter to make decisions on his behalf if needed,daughter would like assistance in healthcare power of state attorney paperwork -Living will: none Code status: [...] over the weekend, please page Geriatrics pager [phone] Lin Wing MD Internal Medicine PGY1 Geriatric [...] daughter requesting a list of SNFs in [facility]. [employer] TECHNICAL MANAGER sent new SNF list to daughter. [facility] did not accept. Care Transitions will continue to follow. 1538-Daughter provided 4 SNF choices. Referrals sent for review. MELANIE Alva * MELANIE Alva - 01/30/2024 4:12 PM EDT Per TCC, patient is QUILEUTE. MELANIE updated daughter Dina on moderate intensity PT recommendation. Daughter confirmed they are agreeable to SNF. When prompted, daughter states she is familiar with [facility] Referrals submitted for review. [employer] TECHNICAL MANAGER sent SNF [facility] to daughter. Care Transitions will continue to follow. MELANIE Alva * Ravindra Ferguson, S-PT - 01/30/2024 12:25 PM EDT Physical Therapy Physical Therapy Treatment Patient Name: Philly Joel Department: [place] [address] Room: [address] [place] [address] Today's Date: 01/30/2024 Time Calculation Start Time: 1015 (split session [id number]) Stop Time: 1129 (split session [id number]) Time Calculation (min): 43 min Assessment/Plan PT [...] complete transfers with maxAx1 to stand and [id number] transfer between bed and chair. Able to [...] has been feeling good. (Split PT session: [id number], 4599-0850) Subjective Precautions: Precautions Hearing/Visual Limitations: Pt QUILEUTE LE Weight Bearing Status: Left Non-Weight Bearing [...] non- compliant with non-WB order. Outcome Measures: [facility] Basic Mobility Turning from your back to [...] Sol PA-C - 01/30/2024 7:23 AM EDT [facility] TRAUMA SERVICE - PROGRESS NOTE Patient Name: Philly Joel Admit Date: [id number] : 1940 AGE: 83 y.o. GENDER: male 83 male presenting to [place] 2 days following a mGLF. baseline holistic, does not see doctor LOC (yes/no?): no Anticoagulant / Anti-platelet Rx? (for what dx?): no Referring Facility Name (N/A for scene EMR run): [place] INJURIES/problems: Non-displaced L periprosthetic femur fracture Post [...] Trauma, Critical Care, and Acute Care Surgery 56221 Total face to face time spent with [...] course Jonah Taylor MD PGY-1 Orthopedic Surgery [facility] Epic Chat Preferred We will follow peripherally [...] surgery for post-operative appointment (patient may call [phone] to schedule). Please page with questions. * Ravindra Marty, S-PT - 01/29/2024 3:43 PM EDT Physical Therapy Physical Therapy Evaluation Patient Name: Philly Joel Department: [facility] 6 Room: 6023/6023-A Today's Date: 01/29/2024 Time [...] Home Living Comments: Pt lives with dog catcher. 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) Prior Function Comments: Pt reports that he [...] Strength: Deficits, Due to pain Outcome Measures: [facility] Basic Mobility Turning from your back to [...] Therapy Evaluation/Treatment Patient Name: Philly Joel Department: [place] [address] Room: [address] [place] [address] Today's Date: 01/29/24 Time Calculation Start Time: [...] Bathroom Equipment: None Prior Function: Level of [place]: Independent with ADLs and functional transfers ADL Assistance: Independent Homemaking Assistance: Independent Ambulatory Assistance: Independent 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 GENDER: male 83 male presenting to [place] 2 days following a mGLF. baseline holistic, does not see doctor LOC (yes/no?): no Anticoagulant / Anti-platelet Rx? (for what dx?): no Referring Facility Name (N/A for scene EMR run): [facility] INJURIES/problems: Non-displaced L periprosthetic femur fracture Post [...] Discussed with Dr. Jeffrey Dunlap PA-C Trauma [id number] CHIEF COMPLAINT / OVERNIGHT EVENTS: No adverse [...] were you homeless or living in a chcf (including now)? N Transportation Needs In the [...] Communication Note Patient Name: Philly Joel Department: [place] [address] Room: [address] [place] [address] Today's Date: 01/29/2024 Discipline: Occupational Therapy Missed [...] course Jonah Taylor MD PGY-1 Orthopedic Surgery [facility] Epic Chat Preferred This patient will be followed by the Orthopaedic Trauma service. Please page or Epic Chat the corresponding residents below with questions or concerns. Ortho Trauma Service (Epic Chat Preferred) First call: Jonah Taylor, PGY-1 Second call: Roberto Apodaca, PGY-2 Third call: Nathanael Bethea, PGY-3 6pm-6am M-F, Holidays, and weekends page Ortho on-call @[phone] with urgent questions/concerns. * Eliel Dunlap PA-C - 01/28/2024 1:57 PM EDT [facility] TRAUMA SERVICE - PROGRESS NOTE Patient Name: Philly Joel Admit Date: [id number] : 1940 AGE: 83 y.o. GENDER: male 83 male presenting to [place] 2 days following a mGLF. Found to have a L periprosthetic femur fracture. Transferred to [facility] for further orthopedic workup. Of note patient is holistic and does not see doctors. LOC (yes/no?): no Anticoagulant / Anti-platelet Rx? (for what dx?): no Referring Facility Name (N/A for scene EMR run): [place] [facility] INJURIES: Non-displaced L periprosthetic femur fracture OTHER [...] course Jonah Taylor MD PGY-1 Orthopedic Surgery [facility] Epic Chat Preferred This patient will be followed by the Orthopaedic Trauma service. Please page or Epic Chat the corresponding residents below with questions or concerns. Ortho Trauma Service (Epic Chat Preferred) First call: Jonah Taylor, PGY-1 Second call: Roberto Apodaca, PGY-2 Third call: Nathanael Bethea, PGY-3 6pm-6am M-F, Holidays, and weekends page Ortho on-call @[phone] with urgent questions/concerns. documented in this [facility] Work Phone: 1(409) 789-347209-24-2024 Plan of care note* Care Plan - [...] Progressing Goal: Promote skin healing Outcome: Progressing [facility]09-24-2024 Miscellaneous Notes* Care Plan - Nati Sigala [...] throughout shift * Care Plan - Nati Sigaal RN - 01/31/2024 4:28 AM EDT The [...] Trauma, Critical Care, Acute Care Surgery Floor: 04194 TSICU: [id number] * Op Note - Samuel Gates DO - 01/28/2024 8:00 AM EDT Open Reduction Internal Fixation Femur (L) Operative Note Date: 01/28/2024 OR Location: [facility] OR Name: Philly Joel, : 1940, Age: 83 y.o., , Sex: male Diagnosis Pre-op Diagnosis * Periprosthetic fracture of proximal end of femur [M97.8XXA, Z96.649] Post-op Diagnosis * Periprosthetic fracture of proximal end of femur [M97.8XXA, Z96.649] Procedures Open Reduction Internal Fixation Femur 45764 - UT OPTX FEM SHFT FX W/PLATE/SCREWS W/WO CERCLAGE Surgeons * Frederic Buenrostro - Primary Resident/Fellow/Other Credit Union Field Examiner: Surgeons and Role: * Toya Mayfield PA-C [...] Staff: Scrub Person: Jennifer Scrub Person: Braulio Pediatric Nurse: Megan Pediatric Nurse: Fernanda Relief Pediatric Nurse: Jed Drains and/or Catheters: Closed/Suction Drain 1 Left Thigh 10 Fr. (Active) Urethral Catheter Double-lumen;Non-latex 16 Fr. (Active) Tourniquet Times: Implants: Implants Type Name Action Serial No. CONNECTING SCREW F/VAVPPFX GT RING ATTCHMT PLATE Implanted 8 HOLE PPFX PLATE Implanted Screw CABLE W/CRIMP, 1.7 X 750MM, SS, STERILE - [id number] Implanted GT ATTACH PLATE Implanted Screw SCREW, CORTICAL, SELF-TAPPING, 4.5 X 38 MM, STAINLESS STEEL - [id number] Implanted Screw SCREW, LOCK 5.[address] T25 - [id number] Implanted Screw CABLE W/CRIMP, 1.7 X 750MM, SS, STERILE - [id number] Implanted Screw PIN 4.5 CERCLAGE POSITIONING - [id number] Implanted Screw SCREW, VARIABLE ANGLE, 50MM, LOCKING, ST - [id number] Implanted Screw SCREW, VARIABLE ANGLE, 46MM, LOCKING, ST - [id number] Implanted Screw SCREW, VARIABLE ANGLE, 44MM, LOCKING, ST - [id number] Implanted Screw SCREW, VARIABLE ANGLE, 40MM, LOCKING, ST - [id number] Implanted Screw SCREW, VARIABLE ANGLE, 36MM, LOCKING, ST - [id number] Implanted Screw SCREW, VARIABLE ANGLE, 32MM, LOCKING, ST - [id number] Implanted Screw SCREW, VARABLE ANGLE LKG, SELF TAP, 3.5 X 38MM - [id number] Implanted Findings: Left periprosthetic femur fracture with [...] powder wereplaced in the wound. A 10 Slovenian round drain was then placed below the vastus musculature and out proximal and anterior to our incision. The fascia of the vastus was then closed with #1 Vicryl in running fashion. The insertion of the vastus was repaired with #1 Vicryl in [id number] fashion. The IT band was closed in [...] 8:00 AM EDT Date: 01/28/2024 OR Location: [facility] OR Name: Philly Joel, : 1940, Age: 83 y.o., , Sex: male Diagnosis Pre-op Diagnosis * Periprosthetic fracture of proximal end of femur [M97.8XXA, Z96.649] Post-op Diagnosis * Periprosthetic fracture of proximal end of femur [M97.8XXA, Z96.649] Procedures Open Reduction Internal Fixation Femur 73366 - UT OPTX FEM SHFT FX W/PLATE/SCREWS W/WO CERCLAGE Surgeons * Frederic Buenrostro - Primary Resident/Fellow/Other Credit Union Field Examiner: Surgeons and Role: * Toya Mayfield PA-C [...] Staff: Scrub Person: Jennifer Scrub Person: Braulio Pediatric Nurse: Megan Pediatric Nurse: Fernanda Hilliard Pediatric Nurse: Jed Findings: L periprosthetic femur fracture, s/p [...] and bilateral hip replacements (2009) presenting to [place] 2 days following a mGLF. Negative LOC, headstrike, or blood thinners. Found to have a L periprosthetic femur fracture. Transferred to [facility] for further orthopedic workup. Of note patient is holistic and does not see doctors. Patient went to OR with orthopedics on 01/27 for ORIF L femur. Will remain NWB LLE until outpatient follow up on 02/13. Due to anaphylactic allergy listed to morphine/codeine, pain control primarily controlled with non opioids, patient tolerated well. PT/OT recommended moderate intensity. Will be discharged to [facility] holden. [facility] Work Phone: 1(135) 407-913209-23-2024 Plan of care note* Care Plan - [...] quietly at this time. Phyllis Soto RN' [facility] Work Phone: 1(454) 675-766609-22-2024 Plan of care note* Care Plan - [...] Progressing Goal: Promote skin healing Outcome: Progressing [facility]09-22-2024 Plan of care note* Care Plan - [...] pain control throughout the shift Outcome: Progressing [facility]09-22-2024 Plan of care note* Care Plan - [...] Progressing Goal: Promote skin healing Outcome: Progressing [facility]09-21-2024 Plan of care note* Care Plan - [...] shift include patient remains safe throughout shift [facility] Work Phone: 1(563) 145-287509-20-2024 Plan of care note* Care Plan - [...] Progressing Goal: Promote skin healing Outcome: Progressing [facility] Work Phone: 1([phone]) 707-592409-19-2024 Consult note* Daniela Loco MD - 01/30/2024 9:16 AM EDTAssociated Order(s): Inpatient consult to Geriatric Medicine Inpatient consult to Geriatric Medicine Consult performed by: Lin Wing MD Consult ordered by: Praful Sol PA-C Primary Team: Trauma Admit Date: 01/27/2024 Emergency Contact: Extended Emergency Contact Information Primary Emergency Contact: JoseDina Mobile Relation: Daughter Preferred language: Gibraltarian Shell Worker needed? No Reason For Consult: medical evaluation in the setting of ground level fall History Of Present Illness: Philly Joel is a 83 y.o. male with history of HTN and bilateral hip replacements in 2009 presenting as a transfer from [facility] after a ground level fall. Per documentation, on 01/23, he trippedon a wooden pallet and landed on L hip/elbow. He presented to [facility] on 01/26 due to worsening pain and difficulty with ambulation. He denied loss of consciousness and head strike after fall and denied anticoagulation use. He was able to walk around following the fall but was having worsening pain and increasing difficulty with ambulation. At [facility], XR pelvis and femur as well as [...] dog. She had to force him to [facility] for evaluation. Daughter reports that patient [...] lot, so he ended up moving to [place], [place] (about 1.5 hrs away from her). [...] and has gotten more spiritual (hewas not mosque prior to this). She reported that patient [...] 975 mg oral q8h HIRAM Eliel G Dulnap, PA-C 975 mg at 01/30/24 0536 calcium [...] information includes outpatient family medicine visits at [facility]. 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 Highest Level of Education: Post-Graduate [...] Transportation: I, Medications: I, Handle Finances: I [place] Scale: 8 Allergies Codeine and Morphine Review [...] Directive/Living Will: No Health Care Power of Quality Control: No, patient would want his daughter to [...] Relevant Results No results found for: TSH, HMQMVAUW52, VITD25, HGBA1C Results from last 7 days [...] and clinical correlation Confirmed by Daphne Hill ([id number]) on 01/28/2024 1:10:[address] abdomen pelvis w IV contrast Narrative: Interpreted By: Nevaeh Lind and Beyersdorf Conner STUDY: CT ABDOMEN PELVIS W IV CONTRAST; 01/27/2024 11:40 pm INDICATION: Signs/Symptoms:fall. COMPARISON: CT pelvis 01/27/2024 ACCESSION NUMBER(S): [id number] ORDERING CLINICIAN: HARINI MENDEZ TECHNIQUE: CT of [...] Grossman. Data analyzed and images interpreted at [facility], [place], [place]. MACRO: Critical Finding: See findings. Notification was initiated on 01/28/2024 at 12:59 am by Nevaeh Lind. (-YCF-) Instructions: Signed by: Nevaeh Lind 01/28/2024 12:59 AM Dictation workstation: [id number] XR chest 1 view Narrative: Interpreted By: Nevaeh Lind and Ohs Zachary STUDY: XR CHEST 1 VIEW; 01/27/2024 8:52 pm INDICATION: Signs/Symptoms:preop clearance. COMPARISON: None. ACCESSION NUMBER(S): [id number] ORDERING CLINICIAN: DEANA GONZALEZ FINDINGS: AP radiograph [...] Song Lozoya. This study was interpreted at [place], [place]. MACRO: None Signed by: Nevaeh Lind 01/28/2024 12:36 AM Dictation workstation: [id number] XR hip left with pelvis when performed 2 or 3 views, XR knee left 1-2 views Narrative: Interpreted By: Nevaeh Lind and Ohs Zachary STUDY: XR HIP LEFT WITH PELVIS WHEN PERFORMED 2 OR 3 VIEWS; XR KNEE LEFT 1-2 VIEWS 01/27/2024 8:52 pm INDICATION: Signs/Symptoms:femur fracture COMPARISON: Pelvic radiograph 01/27/2024. ACCESSION NUMBER(S): [id number]; [id number] ORDERING CLINICIAN: DEANA GONZALEZ TECHNIQUE: AP view [...] Song Lozoya. This study was interpreted at [facility], [place], [place]. MACRO: None Signed by: Nevaeh Lind 01/28/2024 12:34 AM Dictation workstation: [id number] Head/Brain Imaging No results found for this or any previous visit. No results found for this or any previous visit. DATA: EKG: QTC Encounter Date: 01/27/24 ECG 12 Lead Result Value Ventricular Rate 67 Atrial Rate 67 UT Interval 192 QRS Duration 90 QT Interval 392 QTC Calculation(Bazett) 414 P [place] 30 R [place] 39 T [place] 34 QRS Count 10 Q Onset 220 P Onset 124 P Offset 185 T Offset 416 QTC Fredericia 407 Narrative Normal sinus rhythm Normal ECG No previous ECGs available See ED provider note for full interpretation and clinical correlation Confirmed by Daphne Hill ([id number]) on 01/28/2024 1:10:44 AM Anti-psychotics in 48 [...] status - please engage music therapy and poultry cutter services Please consider the following general measures [...] but has seen Dr. Guilherme Fallon at [facility] Goals of Care: -Health care power of state attorney: none, wants his daughter to make decisions on his behalf if needed,daughter would like assistance in healthcare power of state attorney paperwork -Living will: none Code status: [...] over the weekend, please page Geriatrics pager [phone] Consult Billing Time Prep time on date [...] few comment in italics Daniela Loco MD [facility] Work Phone: 1(125) 759-316709-19-2024 Consult note* Daniela Loco MD - 01/30/2024 9:16 AM EDTAssociated Order(s): Inpatient consult to Geriatric Medicine Inpatient consult to Geriatric Medicine Consult performed by: Lin Wing MD Consult ordered by: Praful Sol PA-C Primary Team: Trauma Admit Date: 01/27/2024 Emergency Contact: Extended Emergency Contact Information Primary Emergency Contact: Dina Joel Mobile Relation: Daughter Preferred language: Gibraltarian Shell Worker needed? No Reason For Consult: medical evaluation in the setting of ground level fall History Of Present Illness: Philly Joel is a 83 y.o. male with history of HTN and bilateral hip replacements in 2009 presenting as a transfer from [facility] after a ground level fall. Per documentation, on 01/23, he trippedon a wooden pallet and landed on L hip/elbow. He presented to [facility] on 01/26 due to worsening pain and difficulty with ambulation. He denied loss of consciousness and head strike after fall and denied anticoagulation use. He was able to walk around following the fall but was having worsening pain and increasing difficulty with ambulation. At [facility], XR pelvis and femur as well as [...] dog. She had to force him to [facility] for evaluation. Daughter reports that patient was [...] lot, so he ended up moving to [place], [place] (about 1.5 hrs away from her). [...] and has gotten more spiritual (hewas not mosque prior to this). She reported that patient [...] information includes outpatient family medicine visits at [facility]. 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 COMPARISON: CT pelvis 01/27/2024 ACCESSION NUMBER(S): [id number] ORDERING CLINICIAN: HARINI MENDEZ TECHNIQUE: CT of [...] Grossman. Data analyzed and images interpreted at [place], [place]. MACRO: Critical Finding: See findings. Notification was initiated on 01/28/2024 at 12:59 am by Nevaeh Lind. (-YCF-) Instructions: Signed by: Nevaeh Lind 01/28/2024 12:59 AM Dictation workstation: [id number] XR chest 1 view Narrative: Interpreted By: Nevaeh Lind and Ohs Zachary STUDY: XR CHEST 1 VIEW; 01/27/2024 8:52 pm INDICATION: Signs/Symptoms:preop clearance. COMPARISON: None. ACCESSION NUMBER(S): [id number] ORDERING CLINICIAN: DEANA GONZALEZ FINDINGS: AP radiograph [...] Song Lozoya. This study was interpreted at [place], [place]. MACRO: None Signed by: Nevaeh Lind 01/28/2024 12:36 AM Dictation workstation: [id number] XR hip left with pelvis when performed 2 or 3 views, XR knee left 1-2 views Narrative: Interpreted By: Nevaeh Lind and Ohs Zachary STUDY: XR HIP LEFT WITH PELVIS WHEN PERFORMED 2 OR 3 VIEWS; XR KNEE LEFT 1-2 VIEWS 01/27/2024 8:52 pm INDICATION: Signs/Symptoms:femur fracture COMPARISON: Pelvic radiograph 01/27/2024. ACCESSION NUMBER(S): [id number]; [id number] ORDERING CLINICIAN: DEANA GONZALEZ TECHNIQUE: AP view [...] Song Lozoya. This study was interpreted at [place], [place]. MACRO: None Signed by: Nevaeh Lind 01/28/2024 12:34 AM Dictation workstation: [id number] Head/Brain Imaging No results found for this or any previous visit. No results found for this or any previous visit. DATA: EKG: QTC Encounter Date: 01/27/24 ECG 12 Lead Result Value Ventricular Rate 67 Atrial Rate 67 UT Interval 192 QRS Duration 90 QT Interval 392 QTC Calculation(Bazett) 414 P [place] 30 R [place] 39 T [place] 34 QRS Count 10 Q Onset 220 P Onset 124 P Offset 185 T Offset 416 QTC Fredericia 407 Narrative Normal sinus rhythm Normal ECG No previous ECGs available See ED provider note for full interpretation and clinical correlation Confirmed by Daphne Hill ([id number]) on 01/28/2024 1:10:44 AM Anti-psychotics in 48 [...] status - please engage music therapy and poultry cutter services Please consider the following general measures [...] but has seen Dr. Guilherme Fallon at [facility] previously Goals of Care: -Health care power of state attorney: none, wants his daughter to make decisions on his behalf if needed,daughter would like assistance in healthcare power of state attorney paperwork -Living will: none Code status: [...] over the weekend, please page Geriatrics pager [phone] Consult Billing Time Prep time on date [...] Girard MD - 01/28/2024 8:27 AM EDT [facility] Department of Orthopaedic Surgery Initial Consult Note HPI: 83M (h/o bilateral CIRILO in 2009) transfer from [place] p/[facility] about 4 days ago. [place] when he lost his balance and fell. He initially did not seek treatment he thought it would improve but noted difficulty with ambulation and increasing pain. He underwent bilateral hip replacements with Dr. Kanu Carter in [place] in 2009. He has not had any issues postoperatively. Orthopaedic Problems/Injuries: L [place] B2 fx Other Injuries: None PMH: per [...] and noted above. Imaging: XR/CT w L [place] B2 fx and slight subsidence of femoral implant when compared to prior XRs. Assessment: Orthopaedic Problems/Injuries: L [place] B2 fx 83M (h/o bilateral CIRILO in 2009) transfer from [place] p/a mGLF. Closed, NVI. XR/CT w slight [...] questions. Francia Girard MD Orthopaedic Surgery PGY-2 Modumetal Chat preferred Please page [phone] (on-call pager) on weekends and between 6p-7a on week. While admitted, this patient will be followed by the Ortho Trauma Team. Please contact the residents listed below with any questions (available via Modumetal Chat). First call: Jonah Taylor, PGY-1 Second call: Roberto Apodaca, PGY-2 Third call: Bette Bethea, PGY-3 Please call the ASYM III pager ([phone]) on weekends and between 6p-7a on weekdays. documented in this [facility] Work Phone: 1(670) 369-643909-18-2024 Plan of care note* Care Plan - [...] to eat a meal during shift T [facility]09-17-2024 Note* Significant Event - Lucy Chen PA-C [...] Trauma, Critical Care, Acute Care Surgery Floor: 81288 TSICU: [id number] [facility] Work Phone: 1(938) 907-870309-17-2024 Hospital Discharge instructions* Discharge Instructions* Jonah Taylor MD - 01/28/2024 11:16 AM EDT Follow-Up Instructions You will need to be seen in clinic by Dr. Buenrostro in 2-3 weeks for a post- operative evaluation. Thisappointment will be in the outpatient surgical specialty services [place], on the [facility]. You will need to call and schedule an appointment, unless there is a previous appointment that appears on your discharge instructions. The direct orthopaedic clinic appointment line phone number is [phone]. Please do not delay in calling to [...] 3 months after surgery. documented in this [facility] Work Phone: 1(757) 429-481109-17-2024 Consult note* Francia Girard MD - 01/28/2024 8:27 AM EDT [facility] Department of Orthopaedic Surgery Initial Consult Note HPI: 83M (h/o bilateral CIRILO in 2009) transfer from [place] p/[facility] about 4 days ago. [place] when he lost his balance and fell. He initially did not seek treatment he thought it would improve but noted difficulty with ambulation and increasing pain. He underwent bilateral hip replacements with Dr. Kanu Carter in [place] in 2009. He has not had any issues postoperatively. Orthopaedic Problems/Injuries: L [place] B2 fx Other Injuries: None PMH: per [...] and noted above. Imaging: XR/CT w L [place] B2 fx and slight subsidence of femoral implant when compared to prior XRs. Assessment: Orthopaedic Problems/Injuries: L [place] B2 fx 83M (h/o bilateral CIRILO in 2009) transfer from [place] p/a mGLF. Closed, NVI. XR/CT w slight [...] Surgery PGY-2 Epic Chat preferred Please page [phone] (on-call pager) on weekends and between 6p-7a on weekdays. While admitted, this patient will be followed by the Ortho Trauma Team. Please contact the residents listed below with any questions (available via Modumetal Chat). First call: Jonah Taylor, PGY-1 Second call: Roberto Apodaca, PGY-2 Third call: Bette Bethea, PGY-3 Please call the ortho pager ([phone]) on weekends and between 6p-7a on weekdays. [facility] Work Phone: 1([phone]) 168-891609-17-2024 Note* Op Note - Samuel Gates DO - 01/28/2024 8:00 AM EDT Open Reduction Internal Fixation Femur (L) Operative Note Date: 01/28/2024 OR Location: [facility] OR Name: Philly Joel, : 1940, Age: 83 y.o., , Sex: male Diagnosis Pre-op Diagnosis * Periprosthetic fracture of proximal end of femur [M97.8XXA, Z96.649] Post-op Diagnosis * Periprosthetic fracture of proximal end of femur [M97.8XXA, Z96.649] Procedures Open Reduction Internal Fixation Femur 74748 - UT OPTX FEM SHFT FX W/PLATE/SCREWS W/WO CERCLAGE Surgeons * Frederic Buenrostro - Primary Resident/Fellow/Other Credit Union Field Examiner: Surgeons and Role: * Toya Mayfield PA-C [...] Staff: Scrub Person: Jennifer Scrub Person: Braulio Pediatric Nurse: Megan Pediatric Nurse: Fernanda Relief Pediatric Nurse: Jed Drains and/or Catheters: Closed/Suction Drain 1 Left Thigh 10 Fr. (Active) Urethral Catheter Double-lumen;Non-latex 16 Fr. (Active) Tourniquet Times: Implants: Implants Type Name Action Serial No. CONNECTING SCREW F/VAVPPFX GT RING ATTCHMT PLATE Implanted 8 HOLE PPFX PLATE Implanted Screw CABLE W/CRIMP, 1.7 X 750MM, SS, STERILE - [id number] Implanted GT ATTACH PLATE Implanted Screw SCREW, CORTICAL, SELF-TAPPING, 4.5 X 38 MM, STAINLESS STEEL - [id number] Implanted Screw SCREW, LOCK 5.[address] T25 - [id number] Implanted Screw CABLE W/CRIMP, 1.7 X 750MM, SS, STERILE - [id number] Implanted Screw PIN 4.5 CERCLAGE POSITIONING - [id number] Implanted Screw SCREW, VARIABLE ANGLE, 50MM, LOCKING, ST - [id number] Implanted Screw SCREW, VARIABLE ANGLE, 46MM, LOCKING, ST - [id number] Implanted Screw SCREW, VARIABLE ANGLE, 44MM, LOCKING, ST - [id number] Implanted Screw SCREW, VARIABLE ANGLE, 40MM, LOCKING, ST - [id number] Implanted Screw SCREW, VARIABLE ANGLE, 36MM, LOCKING, ST - [id number] Implanted Screw SCREW, VARIABLE ANGLE, 32MM, LOCKING, ST - [id number] Implanted Screw SCREW, VARABLE ANGLE LKG, SELF TAP, 3.5 X 38MM - [id number] Implanted Findings: Left periprosthetic femur fracture with [...] powder wereplaced in the wound. A 10 Slovenian round drain was then placed below the vastus musculature and out proximal and anterior to our incision. The fascia of the vastus was then closed with #1 Vicryl in running fashion. The insertion of the vastus was repaired with #1 Vicryl in zcmubd-tv-pogax fashion. The IT band was closed in [...] scrubbed for the entire procedure. Frederic Buenrostro [facility] Work Phone: 1(997) 370-891909-17-2024 Note* Brief Op Note - Jonah Taylor MD - 01/28/2024 8:00 AM EDT Date: 01/28/2024 OR Location: [facility] OR Name: Philly Joel, : 1940, Age: 83 y.o., , Sex: male Diagnosis Pre-op Diagnosis * Periprosthetic fracture of proximal end of femur [M97.8XXA, Z96.649] Post-op Diagnosis * Periprosthetic fracture of proximal end of femur [M97.8XXA, Z96.649] Procedures Open Reduction Internal Fixation Femur 00765 - UT OPTX FEM SHFT FX W/PLATE/SCREWS W/WO CERCLAGE Surgeons * Frederic Buenrostro - Primary Resident/Fellow/Other Credit Union Field Examiner: Surgeons and Role: * Toya Mayfield PA-C [...] Staff: Scrub Person: Jennifer Scrub Person: Braulio Pediatric Nurse: Megan Pediatric Nurse: Fernanda Hilliard Pediatric Nurse: Jed Findings: L periprosthetic femur fracture, s/p ORIF Complications: None; patient tolerated the procedure well. Disposition: PACU - hemodynamically stable. Condition: stable Specimens Collected: No specimens collected Attending Attestation: I was present and scrubbed for the love portions of the procedure. Frederic Buenrostro [facility] Work Phone: 1(596) 303-925209-17-2024 History and physical note* Francia Girard MD - 01/28/2024 4:17 AM EDT [facility] Department of Orthopaedic Surgery Surgical History & [...] at 4:18 AM - Francia Girard MD [facility] Work Phone: 1(288) 108-841709-17-2024 History and physical note* Francia Girard MD - 01/28/2024 4:17 AM EDT [facility] Department of Orthopaedic Surgery Surgical History & [...] Mendez PA-C - 01/27/2024 7:32 PM EDT [facility] TRAUMA SERVICE - HISTORY AND PHYSICAL / CONSULT Patient Name: Philly Joel Admit Date: [id number] : 1940 AGE: 83 y.o. GENDER: male MECHANISM OF INJURY / CHIEF COMPLAINT: 83 male presenting to [place] 2 days following a mGLF. Found to have a L periprosthetic femur fracture. Transferred to [facility] for further orthopedic workup. Of note patient is holistic and does not see doctors. LOC (yes/no?): no Anticoagulant / Anti-platelet Rx? (for what dx?): no Referring Facility Name (N/A for scene EMR run): [place] INJURIES: Non-displaced L periprosthetic femur fracture OTHER [...] ordered/pertinent for this encounter. documented in this encounterReg[facility] Work Phone: 1(107) 384-949009-17-2024 Plan of care note* Care Plan - [...] Call light in reach. Phyllis Soto RN [facility] Work Phone: 1(645) 242-733509-17-2024 Hospital Note* Hospital Course - Chani Mosquera PA-C - 01/28/2024 12:42 AM EDT 83 y/o male with PMH htn and bilateral hip replacements (2009) presenting to [place] 2 days following a mGLF. Negative LOC, headstrike, or blood thinners. Found to have a L periprosthetic femur fracture. Transferred to [facility] for further orthopedic workup. Of note patient is holistic and does not see doctors. Patient went to OR with orthopedics on 01/27 for ORIF L femur. Will remain NWB LLE until outpatient follow up on 02/13. Due to anaphylactic allergy listed to morphine/codeine, pain control primarily controlled with non opioids, patient tolerated well. PT/OT recommended moderate intensity. Will be discharged to [facility] holden. [facility] Work Phone: 1(396) 218-646209-16-2024 History and physical note* Harini Mendez PA-C - 01/27/2024 7:32 PM EDT [facility] TRA[facility]MA SERVICE - HISTORY AND PHYSICAL / CONSULT Patient Name: Philly Joel Admit Date: [id number] : 1940 AGE: 83 y.o. GENDER: male MECHANISM OF INJURY / CHIEF COMPLAINT: 83 male presenting to [place] 2 days following a mGLF. Found to have a L periprosthetic femur fracture. Transferred to [facility] for further orthopedic workup. Of note patient is holistic and does not see doctors. LOC (yes/no?): no Anticoagulant / Anti-platelet Rx? (for what dx?): no Referring Facility Name (N/A for scene EMR run): [place] INJURIES: Non-displaced L periprosthetic femur fracture OTHER [...] and imaging results ordered/pertinent for this encounter. [facility] Work Phone: 1(496) 714-781209-16-2024 Emergency department Note* Deana Gonzalez MD - 01/27/2024 6:35 PM EDT Limitations to History: None HPI: Philly Joel is a 83 y.o. who presents to the ED with L periprosethic femur fracture from [place]. He was standing on wooden pallet and [...] Ortho Deana Gonzalez MD 01/27/242229 * Jinny Maqrues RN - 01/27/2024 6:35 PM EDT Patient comes in as a transfer from [facility] here for an orthopedic consult; he fell on Saturday after tripping over a tree stump and landing on his L hip and elbow; denies LOC, denies hitting his head, denies anticoagulation use; waited until today to go to [place], where they found him to have a L hip fx; patient was given 50mcg of Fentanyl prior to leaving [place], and denies pain on arrival States his only PMHx is a heart murmur, which he follows his PCP for and bilateral hip replacementsin 2009 Arrives A&Ox4, no respiratory distress noted while on RA, PERRLA documented in this encounterUnReg[facility] Work Phone: 1(708) 301-501609-16-2024 Emergency department Triage note* Jinny Marques RN - 01/27/2024 6:35 PM EDT Patient comes in as a transfer from [facility] here for an orthopedic consult; he fell on Saturday after tripping over a tree stump and landing on his L hip and elbow; denies LOC, denies hitting his head, denies anticoagulation use; waited until today to go to [place], where they found him to have a L hip fx; patient was given 50mcg of Fentanyl prior to leaving [place], and denies pain on arrival States his only PMHx is a heart murmur, which he follows his PCP for and bilateral hip replacementsin 2009 Arrives A&Ox4, no respiratory distress noted while on RA, PERRLA [facility]09-16-2024 Physician Emergency department Note * Deana Gonzalez MD - 01/27/2024 6:35 PM EDT Limitations to History: None HPI: Philly Joel is a 83 y.o. who presents to the ED with L periprosethic femur fracture from [place]. He was standing on wooden pallet and it broke and he fell down. He landed right on his left hip. He was having worsening pain it was difficult for him to walk at home so went to [place] where he was found to have a [...] Trauma and Ortho Deana Gonzalez MD 01/27/242229 [facility] Work Phone: 1(105) 869-388008-28-2024 Telephone encounter Note* Telephone Encounter - SITA Cotto CNP - 01/08/2024 9:31 AM EDT Appointment noted. [facility] Work Phone: 1(357) 483-504508-28-2024 Miscellaneous Notes* Telephone Encounter - SITA Cotto [...] enough liquids, chapped lips.) Protocols used: Swallowing Msgkoqiyky-OQVSS-MG, Mouth Sfqagkki-TWXWV-ND documented in this [facility]08-27-2024 Telephone encounter Note* Telephone Encounter - Martine [...] enough liquids, chapped lips.) Protocols used: Swallowing Epishrnsyd-MRRWK-JS, Mouth Fmweqekp-FZJBN-EV [facility] HospitalKpskfe23-68-9341 Instructions* Patient Instructions* Toya Jacobsen PA-C - [...] none. Toya Jacobsen PA-C documented in this encounterMercy Health [facility]. [facility]08-22-2024 NoteHNO ID: [id number] Author: TOYA JACOBSEN PA-C Service: ? Author Type: Physician Credit [employer] Field Examiner Type: Progress Notes Filed: 01/02/2024 11:35 Note [...] Pre-treatment: No pre-treatment Treatment (more content not included)...[facility]08-22-2024 History of Present illness Narrative* Toya [...] which included preparing to see the patient, rdgr-mo-ndyx patient care, completing clinical documentation, performing a medically appropriate examination, counseling and educating the patient/family/caregiver, ordering medications, tests, or p rocedures, and communicating results to the patient/family/caregiver. documented in this encounterMercy Health St. [facility]10-10-2023 Instructions* Patient Instructions* Joe Guo APRN.[facility] - 02/19/2023 11:48 AM EDT Cellulitis Cellulitis [...] you are feeling worse documented in this encounterMercy Health St. Charles [facility]10-10-2023 NoteHNO ID: [id number] Author: Joe Guo APRN.MARCELA Service: ? Author [...] Puncture wound of le (more content not included)...[facility] 02-19-2023 History of Present illness Narrative* Joe Guo APRN.[facility] - 02/19/2023 11:34 AM EDT Images from [...] 3) wound check-patient had mole removed by feed miller 1 week prior, patient reports no complications [...] home dressing changes. Advise close follow-up with feed miller as needed. Patient given educational materials - [...] CNP 02/19/2023 11:34 AM documented in this encounterMercy Health St. [facility]08-24-2023 Telephone encounter Note * Telephone Encounter - Guilherme Fallon MD - 01/03/2023 10:06 AM EDT Based on my last visit he refused to complete this with any sort of contrast and did not wish to proceed further. If this has changed please let me know. [facility] HospitalUaxnbw44-12-4205 Miscellaneous Notes* Telephone Encounter - Guilherme Fallon MD - 01/03/2023 10:06 AM EDT Based on my last visit he refused to complete this with any sort of contrast and did not wish to proceed further. If this has changed please let me know. * Telephone Encounter - Kiara Colorado - 01/03/2023 8:11 AM EDT Name of caller: Iris Contact phone number: [phone] Relationship to Patient: [address] [facility] Provider: [facility] Practice: [facility] Chief Complaint/Reason for Call: Iris called [...] return their call: No documented in this encounterSMercy Health St. Anne HospitalBntnex71-26-5443 Telephone encounter Note* Telephone Encounter - Kiara Stanislav - 01/03/2023 8:11 AM EDT Name of caller: Iris Contact phone number: [phone] Relationship to Patient: [address] Cardiology Provider: [facility] Practice: [facility] Chief Complaint/Reason for Call: Iris called [...] business hours to return their call: No [facility] HospitalHreasg29-11-2002 Telephone encounter Note* Telephone Encounter - Guilherme Fallon MD - 12/24/2022 1:17 PM EDT Mychart message sent. [facility] HospitalTcmdph20-00-9484 Miscellaneous Notes* Telephone Encounter - Guilherme Fallon [...] message to the patient. documented in this encounterSMercy Health St. Anne HospitalIdaarj86-35-0521 Telephone encounter Note* Telephone Encounter - Caridad Rudolph CMA - 12/24/2022 12:50 PM EDT Detailed message given to patient, who voiced understanding. Patient does not have a urologist and questions who you would refer him to? Please respond to patient via My Chart with your referral/recommendation. [facility] HospitalMbtyts17-77-0950 Telephone encounter Note* Telephone Encounter - Caridad Rudolph CMA - 12/24/2022 12:[address] Fallon's lab result note: Kamryn Ibrahim, Only finding is that your PSA is quiet high at 18. I would recommend follow up with urology given how high this is, as it may represent prostate cancer. It has almost doubled from last year. Sincerely, Guilherme Fallon MD [facility] HospitalUqmlpg45-24-3561 Telephone encounter Note* Telephone Encounter - Caridad Rudolph CMA - 12/24/2022 10:05 AM EDT Left message to call back on patient's name-identified voicemail. Please relay the message to the patient. [facility] HospitalIgmlyl80-53-6132 Evaluation + Plan note* Assessment & Plan Note - Guilherme Fallon MD - 11/24/2022 11:18 PM EDTAssociated Problem(s): Elevated PSA Continuing to follow PSA. [facility] HospitalSwttef70-69-9074 Miscellaneous Notes* Assessment & Plan Note - [...] to use of contrast. documented in this encounterSMercy Health St. Anne HospitalLcqcbp74-13-5233 Evaluation + Plan note* Assessment & Plan Note - Guilherme Fallon MD - 11/24/2022 11:16 PM EDTAssociated Problem(s): Primary hypertension His BP is well controlled today on amlodipine only. No change to this. Basic labs ordered for monitoring. Discussed rationale for previously ordered Echo (new murmur identified at previous visit). Herefuses secondary to use of contrast. [facility] HospitalHcakxs35-01-6057 History of Present illness Narrative* Guilherme Fallon MD - 11/22/2022 11:00 AM EDT Images from the original note were not included. [facility] [address] [place] [address] Dept: [phone] Dept Chief Complaint: Philly Joel is an [...] kg/m No results found. documented in this [facility]07-13-2023 Instructions* Patient Instructions* Guilherme Fallon MD - [...] Recommendations: A preventive eye exam by an labor specialist is recommended every 1-2 years to screen for glaucoma, cataracts, macular degeneration, and other eye disorders. A preventive dental visit is recommended every 6 months. Try to get at least 150 minutes of exercise per week or 10,000 steps per day on a pedometer. You need 1200-1500mg of calcium and 2147-3168 international units of vitamin D per day. 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 [facility] [address] [place] [address] Dept: [phone] Dept Visit Date: 10/26/22 HPI: Philly Joel [...] Bhatt 10/26/2022 2:50 PM documented in this [facility]06-13-2023 Telephone encounter Note* Telephone Encounter - Toya Cantuimm - 10/23/2022 3:45 PM EDT Made appt 10/26 at 11:20 with Larissa Fallon's limited availability- pt states he needs medication changed sooner rather than later [facility] HospitalLyhmkx42-84-0386 Miscellaneous Notes* Telephone Encounter - Toya Car [...] the contrast. His test is scheduled at [facility] 11/06/2022 Pt also states he [...] printed to take [facility]. Patient has questions about the test that was ordered and patient is requesting phone call back. documented in this encounterSMercy Health St. Anne HospitalZudoau33-34-8937 Telephone encounter Note* Telephone Encounter - Noa Celaya MA - 10/23/2022 2:49 PM EDT LM on name identified VM to return call regarding response from Dr Fallon. Please schedule pt for follow up with Dr Fallon [facility] HospitalXwhsfk40-40-1552 Telephone encounter Note* Telephone Encounter - Guilherme [...] for service animals and not emotional support. [facility] HospitalUvagqi15-46-6154 Telephone encounter Note* Telephone Encounter - Noa Celaya MA - 10/23/2022 9:[address] Fallon: I spoke with pt, he is concerned about the contrast dye in the ECHO, brother almost diedfrom the contrast. His test is scheduled at [facility] 11/06/2022 Pt also states he [...] stating the necessity of keeping his pet? [facility] HospitalAzdfbz37-23-6534 Telephone encounter Note* Telephone Encounter - Ashley Menard - 10/18/2022 1:12 PM EDT Patient came into office and wanted his Echo Order printed to take it somewhere else since [facility]scheduling out too far. Patient has questions about the test that was ordered and patient is requesting phone call back. [facility] HospitalWyxjwb34-02-3492 Miscellaneous Notes* Result Encounter Note - Guilherme [...] hypo or hyperthyroid occur. documented in this [facility]04-27-2023 Progress note* Result Encounter Note - Guliherme Fallon MD - 09/06/2022 8:56 AM EDT Your TSH is low but T3 and T4 are normal. Because those are normal I do not recommend starting anything. This is something we will just want to continue monitoring. My suggestion would be repeating in 6 months to a year and less symptoms of either hypo or hyperthyroid occur. [facility] HospitalCbkrmy82-88-7222 History of Present illness Narrative* Guilherme Fallon MD - 09/05/2022 9:20 AM EDT Images from the original note were not included. [facility] [address] [place] [address] Visit Type: Office Visit PCP: Guilherme [...] Name Age of Onset Cancer Mother Other ([id number]) Brother No Known Problems Daughter Objective BP [...] MD 09/07/2022 11:09 PM documented in this encounterSMercy Health St. Anne HospitalMgrnfn50-00-5194 Telephone encounter Note* Telephone Encounter - Rochelle Helton MA - 08/17/2022 3:27 PM EDT Spoke to pt released message from Isabel to pt. Pt understood and will schedule test. [facility] HospitalSgguch16-34-7006 Miscellaneous Notes* Telephone Encounter - Rochelle Helton MA - 08/17/2022 3:27 PM EDT Spoke to pt released message from Isabel to pt. Pt understood and will schedule test. * Telephone Encounter - Isabel Colmenares - 08/17/2022 1:42 PM EDT Home Sleep Study; Auth approved through [employer] Auth#; [id number] Exp; 11.14.2022 Call; [phone] to schedule ECHO; Auth approved through [employer] Auth#; [id number] Exp; 11.11.2022 Call; [phone] to schedule * Telephone Encounter - Guilherme [...] walking overa week ago. Was seen at [facility] and BP was elevated at that time [...] understands care advice. Please contact pt at [phone] to set up ECHO and cpap testing. Instructed to call back with any further questions or concerns. Reason for Disposition Systolic BP >= 130 OR Diastolic >= 80, and is taking BP medications Protocols used: Blood Pressure - Ummx-BSVFY-TM documented in this encounterSMercy Health St. Anne HospitalMmtcef04-59-2127 Telephone encounter Note* Telephone Encounter - Isabel Colmenares - 08/17/2022 1:42 PM EDT Home Sleep Study; Auth approved through [employer] Auth#; [id number] Exp; 11.14.2022 Call; [phone] to schedule ECHO; Auth approved through [employer] Auth#; [id number] Exp; 11.11.2022 Call; [phone] to schedule [facility] HospitalXfwfqm86-90-6741 Telephone encounter Note* Telephone Encounter - Guilherme Fallon MD - 08/17/2022 12:50 PM EDT Unsure and suspect unlikely to get tests done before that appointment. Due to multiple factors, most of that testing can take a month or more to get done. Taking in the morning is fine. The dose may need increased to help bring that down. [facility] HospitalKxbrxz07-14-1775 Telephone encounter Note* Telephone Encounter - Bev Callahan RN - 08/17/2022 9:29 AM EDT S: Patient spoke with [facility] nurse regarding hypertension B: Onset of symptoms/concern couple weeks, high this morning A: Pt was seen last week for high BP. Was given lisinopril. Had an episode of difficulty walking overa week ago. Was seen at [facility] and BP was elevated at that time [...] understands care advice. Please contact pt at [phone] to set up ECHO and cpap testing. Instructed to call back with any further questions or concerns. Reason for Disposition Systolic BP >= 130 OR Diastolic >= 80, and is taking BP medications Protocols used: Blood Pressure - Azhk-YKZWS-FO [facility] HospitalFkoerb77-50-7869 History of Present illness Narrative* Larissa Aceves ATC - 08/15/2022 9:00 AM EDT Images from the original note were not included. Podiatry Last PCP Visit and Provider: Office Visit 08/08/2022 [facility] Guilherme Fallon MD Family Medicine Primary hypertension +4 more Dx ER Follow-up Reason for Visit * Matthew Perez PA-C - 08/15/2022 9:00 AM EDT Images from the original note were not included. VENESSA Tony PA-C [facility] [address] [place] [address] Dept: [phone] Dept Patient: Philly Joel : 1940 Date [...] physical debility 3. Enlarged and hypertrophic nails [facility] Orthopedics Podiatry Plan: Fungal nails, chronic stable [...] he was instructed to contact myself via DNA13t or call the officewith any questions or concerns. Matthew Perez PA-C documented in this [facility]03-30-2023 Miscellaneous Notes* Result Encounter Note - Guilherme [...] Cholesterol looked overall good. documented in this [facility]03-30-2023 Progress note* Result Encounter Note - Guilherme [...] number of things. Cholesterol looked overall good. [facility] HospitalVzscwp43-07-4287 History of Present illness Narrative* Guilherme Fallon MD - 08/08/2022 9:20 AM EDT Images from the original note were not included. [facility] [address] [place] [id number] Visit type: Established Patient Reason for Visit: ER Follow-up (Hypertension, dizziness, [facility] [place], had labs and MRI) Assessment and Plan [...] test; Future Enlarged and hypertrophic nails - [facility] Orthopedics Podiatry; Future Newly recognized murmur - [...] Name Age of Onset Cancer Mother Other ([id number]) Brother No Known Problems Daughter Objective BP [...] MD 08/10/2022 10:56 PM documented in this [facility]01-16-2023 Instructions* Patient Instructions* Letty Shen APRN.MARCELA - [...] dizziness, lethargy, signs of dehydration, fever greater [id number] F that is not responding to Tylenol or ibuprofen (Motrin, Advil), drooling, difficulty swallowing, difficulty breathing, shortness of breath, chest pain, evidence of airway compromise (tripod position, neck extension, retractions), seizures, changes in mental status, or other concerns. documented in this encounterMercy Health St. [facility]01-16-2023 History of Present illness Narrative* Letty [...] earlier but not now. 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 Denies shortness of breath, headache [...] dizziness, lethargy, signs of dehydration, fever greater [id number] F that is not responding to Tylenol [...] which included preparing to see the patient, rxxs-kh-gvkt patient care, completing clinical documentation, obtaining and/or reviewing separately obtained history, performing a medically appropriate examination, counseling and educating the pat ient/family/caregiver, and ordering medications, tests, or procedures. documented in this encounterMercy Health St. [facility]04-18-2021 Hospital Discharge instructions* Instructions* Alex Nair MD - 08/28/2020 Remove packing as I showed how tomorrow morning, recheck with your doctor and return if any worsening problems would occur including recurrent bleeding or any bleeding anyplace else. * Attachments The following attachments cannot be sent through Care Everywhere. * Nosebleeds (Gibraltarian) documented in this encounter[facility] Work Phone: Discharge summary Author Haris Elise [facility] Note Date/Time November 29, 2024 12:3 0am [facility] Medical Records Department [address] [place] [address] Emergency Department Summary 11/29/24 MR#: [id number] Acct: [id number] Name: PHILLY JOEL Rep #:[id number] : 1940 84 From: Haris Elise MD [...] bleeding from them. He was admitted to [place] for rehab, but he hated it there [...] they do not seem to be healing. [facility] Medical History Weakness of lower extremity Acute [...] As soon as possible (call for appt: [phone]) Guilherme Fallon MD [Primary Care Provider] - 1 Week Print Language: Gibraltarian Disposition Disposition: Home, Self Care What to do if you have Problems For any increased pain, shortness of breath, bleeding, nausea or vomiting, chestpain, or any unexpected problems, contact your Primary Care Provider. Call [facility] ([phone]) or report to the closest Emergency Room. Call 911 if necessary. 11/29/24 0030 <Electronically signed by Haris Elise MD> Cosigner Signature (if applicable): CC: Dr. Guilherme Fallon MD; Wound Center ~ Signed [facility] Work Phone: Evaluation note* Diagnosis Acute anterior [...] diagnosis of hypertension [facility] Diagnosis Primary hypertension- Primary Unspecified essential hypertension Dizziness and giddiness Observed sleep apnea Enlarged and hypertrophic nails Newly recognized murmur [facility] Pain due to onychomycosis of toenails of both feet- Primary Age-related physical debility Enlarged and hypertrophic nails [facility] Diagnosis Primary hypertension- Primary Unspecified essential hypertension Elevated TSH Other abnormal blood chemistry [facility] Diagnosis Primary hypertension- Primary Unspecified essential hypertension Dizziness Dizziness and giddiness [facility] Diagnosis Essential (primary) hypertension- Primary Unspecified essential hypertension [facility] Diagnosis Routine general medical examination at health care facility- Primary Routine general medical examination at a health care facility Primary hypertension Unspecified essential hypertension Elevated PSA Elevated prostate specific antigen (PSA) Vaccine refused by patient [facility] Diagnosis Other specified abnormal findings of blood chemistry- Primary documented in this [facility]* Diagnosis Elevated PSA, between 10 and less than 20 ng/ml- Primary [facility]* Diagnosis Puncture wound of left index finger- Primary Localized erythema Unspecified erythematous condition Visit for wound check Encounter for other specified aftercare [facility] Diagnosis Bilateral impacted cerumen- Primary Impacted cerumen [facility] Diagnosis Periprosthetic fracture of proximal end of femur documented in this encounter [facility] Work Phone: Evaluation note* Diagnosis Periprosthetic fracture of proximal end of femur- Primary Periprosthetic fracture of proximal end of femur documented in this encounter [facility] Work Phone: Evaluation note* Diagnosis Periprosthetic fracture of proximal end of femur documented in this encounter [facility] Work Phone: Evaluation note* Diagnosis 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, initial encounter (Multi)- Primary documented in this encounter [facility] Work Phone: Evaluation note* Diagnosis Periprosthetic fracture of proximal end of femur- Primary Periprosthetic fracture of proximal end of femur Closed fracture of left femur, unspecified fracture morphology, unspecified portion of femur, initial encounter Closed fracture of left femur, unspecified fracture morphology, unspecified portion of femur, initial encounter Murmur Undiagnosed cardiac murmurs documented in this encounter [facility] Work Phone: Evaluation note* Diagnosis Onset Date Resolution Status Admit Date Acute hyponatremia acute November 152024 2:42pm Generalized weakness acute November 15, 2024 2:42pm Weakness of lower extremity acute November 15, 2024 2:42pm [facility] Work Phone: History and physical note Author Shannan Patterson [facility] Note Date/Time November 15, 2024 3:03p m [facility] Medical Records Department [address] [place] [address] H&P Exam - Hospitalist 11/15/24 1441 MR#: [id number] Acct: [id number] Name: PHILLY JOEL Rep #:[id number] : 1940 84 From: Shannan Patterson MD PCP: Dr. Guilherme Fallon MD Status:ADM IN Location: U [id number] HPI - General General Date of Admission: 11/15/24 Date of Service: 11/15/24 Chief Complaint: Right leg weakness HPI Narrative PHILLY JOEL, is a 84M with a history of hypertension and left femur break lastMarch requiring surgery at presented [facility] ED 11/15/2024 with weakness. In the ED [...] to PCU as a stroke rule out [facility] Medical History (Updated 11/15/24 @ [...] 78.3 H, Lymph % (Auto) 6.4 L, [place] % (Auto) 13.6 H, Eos % (Auto) [...] Clarity Clear, Urine pH 7.0, Ur Specific [place] 1.010, Urine Protein 30 H, Urine Glucose [...] Patterson MD Charges/Coding Visit Charges Inpatient E&M: 47880 Init Hosp L2 11/15/24 1503 <Electronically signed by Shannan Patterson MD> Cosigner Signature (if applicable): CC: Dr. Guilherme Fallon MD; Dr. Shannan Patterson MD~ Signed [facility] Work Phone: Hospital Discharge instructions* Attachments The following attachments cannot be sent through Care Everywhere. * Nosebleeds (Gibraltarian) documented in this [facility] Work Phone: Reason for referral (narrative)* Consultation (Routine) - Pending Review Specialty Diagnoses / Procedures Referred By Carol t Referred To Contact Urology Diagnoses Elevated PSA, between 10 and less than 20 ng/ml Procedures UT OFFICE/OUTPATIENT NEW HIGH MDM 60-74 MINUTES Guilherme Fallon MD [facility] [address] [place] [address] [facility] [address] [facility] [address] [place] [address] Referral ID Status Reason Start Date Expiration Date Visits Requested Visits Authorized [id number] Pending Review Specialty Services Required 12/24/2022 12/24/2023 1 1 [facility] for referral (narrative)No reason for referral information [facility] Work Phone: Reason for visit Narrative* Imaging (Routine) - Pending Review Specialty Diagnoses / Procedures Referred By Carol t Referred To Contact Radiology Diagnoses Periprosthetic fracture of proximal end of femur Procedures XR pelvis 1-2 views XR pelvis 1-2 views Katiana Bragg PA-C [address] Department [place] [address] Phone: tel: fax: Referral ID Status Reason Start Date Expiration Date Visits Requested Visits Authorized [id number] Pending Review Perform Procedure 04/16/2024 04/16/2025 1 1 [facility] Work Phone: Reason for visit Narrative* Imaging (Routine) - Pending Review Specialty Diagnoses / Procedures Referred By Carol t Referred To Contact Radiology Diagnoses Periprosthetic fracture of proximal end of femur Procedures XR femur left 2+ views XR femur left 2+ views Katiana Bragg PA-C [address] Department [place] [address] Phone: tel: fax: Referral ID Status Reason Start Date Expiration Date Visits Requested Visits Authorized [id number] Pending Review Perform Procedure 04/16/2024 04/16/2025 1 1 [facility] Work Phone: Summary Purpose Family History No Family History Records FoundNo Family History Records FoundNo Family History Records FoundNo Family History Records FoundNo Family History Records FoundNo Family History Records FoundNo Family History Records FoundNo Family History Records FoundNo Family History Records FoundNo Family History Records FoundNo Family History Records Found Advance Directives Documents on File Type Date Recorded 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 No November 15, 2024 12:14pm Advance Directive Response Recorded Date/ Time Do you have a Healthcare Power of Quality Control? Yes November 15, 2024 3:30pm Name of Medical Power of Quality Control Dina Huerta Clement November 15, 2024 3:30pm Advance Directive Response Recorded Date/ Time Do you have a Healthcare Power of Quality Control? Yes November 15, 2024 3:30pm Name of Medical Power of Quality Control Dina Huerta Clement November 15, 2024 3:30pm Do you have a Healthcare Power of Quality Control? No November 29, 2024 12:00am Advance Directive Response Recorded Date/ Time Do you have a Healthcare Power of Quality Control? Yes November 15, 2024 3:30pm Name of Medical Power of Quality Control Dina Huerta Clement November 15, 2024 3:30pm Do you have a Healthcare Power of Quality Control? No November 29, 2024 12:00am Do you have a Healthcare Power of Quality Control? Yes December 04, 2024 10:56am Reason for Referral Status Reason Specialty Diagnoses / Procedures Referred By Contact Referred To Contact Open Specialty Services Required Orthopedic Surgery Diagnoses Closed fracture of right foot, initial encounter Alex Nair MD [address] [place] [address] [facility] [address] [place] [address] Scheduling Instructions [facility] [place] [address] Specialty Diagnoses / Procedures Referred By Contac t Referred To Contact Cardiology Diagnoses Newly recognized murmur Procedures Transthoracic echocardiogram (TTE) limited with contrast, bubble, strain, and 3D PRN UT ECHO TRANSTHORC R-T 2D W/WO M-MODE REC F-UP/LMTD UT DOP ECHOCARD PULSE WAVE W/SPECTRAL F-UP/LMTD STD UT DOP ECHOCARD COLOR FLOW VELOCITY MAPPING UT 2D TTE W OR W/O FOL W/CON,FU Guilherme Fallon MD [address] [facility] [address] [place] [address] Referral ID Status Reason Start Date Expiration Date Visits Requested Visits Authorized [id number] Pending Review Perform Procedure 08/08/2022 02/04/2023 1 1 Specialty Diagnoses / Procedures Referred By Contac t Referred To Contact Podiatry Diagnoses Enlarged and hypertrophic nails Procedures UT OFFICE/OUTPATIENT NEW HIGH MDM 60-74 MINUTES Guilherme Fallon MD [address] [facility] [address] [place] [address] Matthew Perez PA-C [address] [facility]. [address] [place] [address] Referral ID Status Reason Start Date Expiration Date Visits Requested Visits Authorized [id number] Pending Review Specialty Services Required 08/08/2022 08/08/2023 1 1 Specialty Diagnoses / Procedures Referred By Contac t Referred To Contact Sleep Medicine Diagnoses Primary hypertension Observed sleep apnea Procedures Home sleep test Guilherme Fallon MD [address] [facility] [address] [place] [address] Referral ID Status Reason Start Date Expiration Date V isits Requested Visits Authorized [id number] Pending Review 08/08/2022 02/04/2023 1 1 Specialty Diagnoses / Procedures Referred By Contac t Referred To Contact Radiology Diagnoses Periprosthetic fracture of proximal end of femur Procedures XR femur left 2+ views Katiana Bragg PA-C [address] [place] [address] Department of Orthopedics [place] [id number] Referral ID Status Reason Start Date Expiration Date Visits Requested Visits Authorized [id number] Authorized Perform Procedure 02/18/2024 02/17/2025 1 1 Specialty Diagnoses / Procedures Referred By Contac t Referred To Contact Radiology Diagnoses Periprosthetic fracture of proximal end of femur Procedures XR pelvis 1-2 views Katiana Bragg PA-C [address] [place] [address] Department [place] [address] Referral ID Status Reason Start Date Expiration Date Visits Requested Visits Authorized [id number] Authorized Perform Procedure 02/18/2024 02/17/2025 1 1 [...] sent through Care Everywhere. * Foot Fracture (Gibraltarian) documented in this encounter Assessments Diagnosis Closed [...] section and content) DATE CREATED AUTHOR 12/06/2017 [facility] DATE CREATED AUTHOR AUTHOR'S ORGANIZ ATION 09/09/2020 [facility] DATE CREATED AUTHOR AUTHOR'S ORGANIZ ATION 12/04/2021 [facility] DATE CREATED AUTHOR AUTHOR'S ORGANIZ ATION 01/04/2024 [facility] DATE CREATED AUTHOR AUTHOR'S ORGANIZ ATION 01/29/2024 [facility] DATE CREATED AUTHOR AUTHOR'S ORGANIZ ATION 02/09/2024 [facility] DATE CREATED AUTHOR AUTHOR'S ORGANIZ ATION 02/24/2024 [facility] DATE CREATED AUTHOR AUTHOR'S ORGANIZ ATION 03/06/2024 [facility] DATE CREATED AUTHOR AUTHOR'S ORGANIZ ATION 04/22/2024 [facility] DATE CREATED AUTHOR AUTHOR'S ORGANIZ ATION 12/03/2024 [facility] DATE CREATED AUTHOR AUTHOR'S ORGANIZ ATION 12/04/2024 [facility] Reason for Visit (unrecogniz ed section and content) Reason Comments Foot Pain Reason Comments Epistaxis Reason Comments Epistaxis R nare Reason Comments blood pressure Sxs for high 153/72, and 145/70, was last reading's Reason Comments ER Follow-up Hypertension, dizzin ess, [facility] [place], had labs and MRI 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 [place] [address] Matthew Perez PA-C [address] [facility]. [address] [place] [address] Referral ID Status Reason Start Date Expiration Date V isits Requested Visits Authorized [id number] Closed Specialty Services Required 08/08/2022 08/08/2023 1 [...] femur left 2+ views Katiana Bragg PA-C [address] [facility] Department [place] [address] Referral ID Status Reason Start Date Expiration Date Visits Requested Visits Authorized [id number] Authorized Perform Procedure 02/18/2024 02/17/2025 1 1 Reason Comments Follow-up femur Reason Comments Hip Pain Left hip/leg pain Reason Comments Fall Hip Pain Specialty Diagnoses / Procedures Referred By Carol van Referred To Contact Diagnoses Closed fracture of left femur, unspecified fracture morphology, unspecified portion of femur, initial encounter hip fracture Procedures No coded [place] [address] [place] [address] [facility] [place] [address] [place] [address] Referral ID Status Reason Start Date Expiration Date Visits Re quested Visits Authorized [id number] 1 1 Reason Onset Date Comments Other 11/20/2024 [facility] Reason Onset Date Comments Orders 11/19/2024 Ordered Prescriptions (unrec ognized section and content) Prescription Sig Dispensed Refills Start Date End Da te amoxicillin (AMOXIL) 500 MG capsule Take 1 capsule by mouth 3 times daily for 7 days 21 capsule 0 09/01/2020 09/08/2020 Care Teams (unrecognized sec tion and content) Truck Technician Relationship Specialty Start Date End Date Guilherme Fallon MD [address] [place] [address] PCP - General Family Medicine 10/27/21 Truck Technician Relationship Specialty Start Date End Date Deyanira Graham MD [address] [facility] [address] [place] [address] PCP - General Internal Medicine 12/30/18 Truck Technician Relationship Specialty Start Date End Date Guilherme Fallon MD [address] [facility] [address] [place] [address] PCP - General 10/27/21 Truck Technician Relationship Specialty Start Date End Date Guilherme Fallon MD [address] [facility] [address] [place] [address] PCP - General 10/27/21 Truck Technician Relationship Specialty Start Date End Date Guilherme Fallon MD [address] [facility] [address] [place] [address] PCP - General 10/27/21 Truck Technician Relationship Specialty Start Date End Date Guilherme Fallon MD [address] [facility] [address] [place] [address] PCP - General 10/27/21 Truck Technician Relationship Specialty Start Date End Date Guilherme Fallon MD [address] [facility] [address] PCP - General 10/27/21 Truck Technician Relationship Specialty Start Date End Date Guilherme Fallon MD [address] [facility] [address] PCP - General 10/27/21 Truck Technician Relationship Specialty Start Date End Date Guilherme Fallon MD [address] [place] [address] PCP - General 10/27/21 Truck Technician Relationship Specialty Start Date End Date Guilherme Fallon MD [address] [place] [address] PCP - General 10/27/21 Truck Technician Relationship Specialty Start Date End Date Guilherme Fallon MD [address] [place] [address] PCP - General 10/27/21 Truck Technician Relationship Specialty Start Date End Date Guilherme Fallon MD [address] [place] [address] PCP - General 10/27/21 Truck Technician Relationship Specialty Start Date End Date Guilherme Fallon MD [address] [place] [address] PCP - General 10/27/21 Truck Technician Relationship Specialty Start Date End Date Guilherme Fallon MD [address] [place] [address] PCP - General 10/27/21 Truck Technician Relationship Specialty Start Date End Date Guilherme Fallon [address] [place] [address] PCP - General Family Medicine 02/19/23 Truck Technician Relationship Specialty Start Date End Date Guilherme Fallon MD [address] [place] [address] [place] [address] PCP - General Family Medicine 02/19/23 Truck Technician Relationship Specialty Start Date End Date Guilherme Fallon MD [facility] [address] [address] PCP - General 10/27/21 Truck Technician Relationship Specialty Start Date End Date Generic Provider, [place] [address] PCP - General Fitness Coach 01/27/24 Truck Technician Relationship Specialty Start Date End Date Generic Provider, [place] [address] PCP - General Fitness Coach 01/27/24 Truck Technician Relationship Specialty Start Date End Date Generic Provider, [place] [address] PCP - General Fitness Coach 01/27/24 Truck Technician Relationship Specialty Start Date End Date Generic Provider, [place] [address] PCP - General Fitness Coach 01/27/24 Team Status: Active Member Role/Relationship Status [...] Provider Active S tart: November 18, 2024 Truck Technician Relationship Specialty Start Date End Date Guilherme Fallon MD [address] [place] [address] PCP - General 10/27/21 Truck Technician Relationship Specialty Start Date End Date Guilherme Fallon MD [facility] [address] [address] PCP - General 10/27/21 Team Status: Active [...] or prosecute any alcohol or drug abuse patient.[facility] the event this information is protected by the Federal Confidentiality of Alcohol and Drug Abuse Patient Records regulations: The Federal rules restrict any use of the information to criminally investigate or prosecute any alcohol or drug abuse patient.[facility] the event this information is protected by the [facility] Confidentiality of Alcohol and Drug Abuse Patient Records regulations: The Federal rules restrict any use of the information to criminally investigate or prosecute any alcohol or drug abuse patient.[facility] Scheduled Active and Recently Administ ered [...] BE BASED ON THE PRIMARY CLINICAL RECORDS. [employer] [facility]. provides no warranty or guarantee of the accuracy or completeness of information in this document.
--- NOTE | 2024-12-05 11:21 | NURSING ---
pt's Dtr and POA Haily Garcia called. Given update. She expressed many concerns re pt's living situation, the fact that his live in help Haily Haynes and her boyfriend Hans seem to be trying to take over his care and decision making. She states just over a month ago, he drove to [facility] to meet her, was able to be mobile with a cane. He then had a fall, was to [facility] where he signed out AMA and was taken home by Haily Haynes. Haily Garcia also states, his landlord is a nurse here and she also has voiced concerns over his quick decline. She (dtr) has already spoken with APS who apparently agreed there appears to be an issue. Nay NAVARRO and Dr. Yeh notified of above.
[2024-12-05] MEDS: Senna/Docusate Sodium 1 Tablet 2 TABLET PO ×2 (12:07→23:05)
[2024-12-05 12:27] LABS: Hematocrit 34.4 % (40-54); Hemoglobin 11.7 g/dL (13.0-16.5)
[2024-12-05] MEDS: Ensure Plus High Protein 120 ML LIQUID PO ×3 (14:42→23:06)
--- NOTE | 2024-12-05 14:49 | CASEMGMT ---
Addendum entered by Reva Ayon 12/05/24 15:20: Social Work SW called Haily Haynes in regard to POA documents. She states she has been pt's POA for almost two weeks now. SW asked her to bring in the documents to be copied, SW explained that it seems that the copies may have been sent to medical records. She states will be back later and will bring in the papers to be copied. She then asked SW about witnessing pt signing something to get new tags for pt's tags on his truck, states this is the only vehicle pt can get in and out of. CLAUDIA politely explained that SW would not witness something today as pt is having bouts of confusion. Haily states understanding. SW to follow up Saturday. NITA Mann Addendum entered by Reva Ayon 12/05/24 15:02: Social Work SW spoke w/the staff in the ED today. It is likely that the new LW/POA documents were sent directly to medical records to be scanned in. If the new LW/POA documents are not in the echart by Saturday, SW will follow up w/Haily Haynes to get paper copies of the new LW/POA. NITA Mann Original Note: Social Work As per CLOUD PHYSICIST, pt's daughter called in w/concerns around pt and how he is being cared for at home. She has called APS. SW reviewed chart and notes. Pt completed POA papers here in the hospital recently naming his daughter Haily Garcia as the POA. However when the caregiver Haily Haynes was here yesterday, she states she is POA, and as per the ED provided the documents. SW will follow up as the only POA documents on file are the ones listing Haily Garcia as POA. SW spoke w/pt in room in regard to who is POA. Pt states he remembers making Haily Garcia his POA, but does think that he redid the papers since then and made Haily Haynes his POA. He states he and his daughter do not get along, and wants it to be Haily Ivy. SW inquired why he made his daughter the POA last time he did the paperwork here, he states, because she is my daughter. At this time he says it's only Haily Ivy, and not his daughter at all. SW asked pt about discharge plan, pt states that he will return home with caregiver and her friend. SW will follow up on Saturday. NITA Mann
--- NOTE | 2024-12-05 16:58 | CASEMGMT ---
Social Work Haily Haynes did bring in new LW/POA documents, dated 11/30/24. Haily Haynes is now listed as POA and Haily Garcia is the alternate. NITA Mann
--- NOTE | 2024-12-05 17:07 | NURSING ---
This RN along with Nahun RN, Tori & Alessandra DATA ENTRY MANAGER in to get pt out of his chair and back in bed. Pt became angry and raised his voice. I stay in the chair all the time at home. This RN gave education as to why pt should get in bed mostly regarding his wound so he could be repositioned. Pt yelling. I'm not getting back in that bed! I'm with it and I can make my own choices, I don't need you to tell me what to do. Pt left alone. Call light in reach.
--- NOTE | 2024-12-05 18:31 | PCM.PN.HOSP ---
Reason for Visit Chief Complaint: Abdominal pain and nausea Subjective Subjective Patient was seen and examined today, he exhibits some mild confusion, he is very weak. Patient appears stable for transfer from the second floor to [place] [address] however. Patient had been taking little bark extract which converts to aspirin in the body, an EGD was done yesterday which showed erosive esophagitis with bleeding, a Paola-Kramer tear, but no gross lesions in the entire duodenum. There is evidence of bleeding in the stomach but no ulcers were seen. Objective Data Objective Data Vital Signs: Vital Signs Temp Pulse Resp BP Pulse Ox O2 Del Method O2 Flow Rate 98.6 F 76 18 125/66 H 99 Room Air 2 12/05/24 12:58 12/05/24 12:58 12/05/24 12:58 12/05/24 12:58 12/05/24 12:58 12/05/24 12:58 12/05/24 09:35 Oxygen Flow Rate (L/min) 2 Oxygen Delivery Method Room Air Weight: 97.704 kg Body Mass Index (BMI) 27.6 Intake & Output: Intake and Output for Last 24 Hours 12/03/24 12/04/24 12/05/24 23:59 23:59 23:59 Intake Total 3300 / 3300 965.83 / 965.83 Output Total 450 / 450 Balance 3300 / 3300 515.83 / 515.83 Lab / Micro Data 12/05/24 12:10 12/05/24 04:22 Labs: Laboratory Results - last 24 hr 12/04/24 14:26: Crossmatch See Detail 12/04/24 21:25: Hgb 10.1 L, Hct 29.9 L 12/04/24 23:30: Hgb 11.1 L, Hct 33.2 L 12/05/24 04:22: WBC 10.1, RBC 3.80 L, Hgb 10.8 L, Hct 32.1 L, MCV 84.5, MCH 28.4, MCHC 33.6, RDW Std Deviation 44.7 H, RDW Coeff of Bud 14.5, Plt Count 262, MPV 8.7, Immature Gran % (Auto) 0.700, Neut % (Auto) 82.6 H, Lymph % (Auto) 5.8 L, [place] % (Auto) 10.0, Eos % (Auto) 0.3, Baso % (Auto) 0.6, Absolute Neuts (auto) 8.3 H, Absolute Lymphs (auto) 0.58 L, Nucleated RBC % 0, Differential Comment SCANNED, Sodium 135, Potassium 4.2, Chloride 101, Carbon Dioxide 24.5, Anion Gap 9, BUN 20 H, Creatinine 0.69 L, Estim Creat Clear Calc 78.49, Est GFR (MDRD) Non-Af 91, BUN/Creatinine Ratio 29.3 H, Glucose 119 H, Calcium 8.3 12/05/24 12:10: Hgb 11.7 L, Hct 34.4 L Micro: Microbiology 12/04/24 13:37 Stool Stool Occult Blood (BERENICE) - Final Occult Blood Positive Physical Exam Const alert and no apparent distress Constitutional Narrative: Patient appears a stated age General Appearance: cooperative, well kempt and well developed Orientation / Consciousness: awake, oriented to person and oriented to place HEENT normocephalic, head/scalp atraumatic and moist oral mucous membranes Eyes PERRL, EOMs intact bilaterally and conjunctivae normal Neck supple, no JVD, thyroid normal and no carotid bruits General: trachea midline Resp normal respiratory effort, no retractions, no use of accessory muscles and clear to auscultation bilaterally Auscultation: Negative for rales, rhonchi or wheezes Cardio regular rate, regular rhythm, S1 normal heart sound, S2 normal heart sound, no murmurs, no rub and no gallops GI normal to inspection, nondistended, normoactive bowel sounds, soft to palpation, non-tender and non-distended Extremity no clubbing, cyanosis or edema Skin no rashes or lesions noted General Skin Exam: no breakdown Neuro CN's II-XII intact bilaterally, moves all extremities, no focal motor deficits and no sensory deficits noted Neuro Narrative: Patient shows evidence of mild confusion Sensorium / Orientation: awake, alert, oriented to person and oriented to place Speech: speech normal Psych Psych Narrative: Patient shows evidence of mild confusion Assessment & Plan Assessment/Plan (1) Acute upper GI bleed: PLAN: Plan 1. Upper GI bleed secondary to erosive esophagitis and Paola-Kramer tear-patient's hemoglobin remained stable today, he is on a PPI #2 generalized debility-patient will be seen by PT and OT #3 mild anemia secondary to acute upper GI blood loss from erosive esophagitis and Paola-Kramer tear-patient does not require a transfusion. CBC will be monitored as needed Total clinical time spent by myself addressing the patient's medical issues, reviewing all of his data, and collaborating with patient's care team: 35 minutes Charges/Coding Visit Charges Inpatient E&M: 14973 Subs Hosp L2
[2024-12-06 03:45] VITALS: BP 97/49; PULSE 72; RESP 15; TEMP 37.1; O2SAT 96
[2024-12-06 06:00] VITALS: BMI 27.6
[2024-12-06 07:34] VITALS: O2SAT 95
[2024-12-06] MEDS: Senna/Docusate Sodium 1 Tablet 2 TABLET PO (08:07)
[2024-12-06] MEDS: Juven (unflavored) Packet 1 PACKET PO ×2 (08:18→16:19)
[2024-12-06 09:53] VITALS: BP 107/57; PULSE 66; RESP 16; TEMP 36.8; O2SAT 98
[2024-12-06] MEDS: Ensure Plus High Protein 120 ML LIQUID PO ×2 (12:38→16:19)
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
[2024-12-06 17:12] VITALS: BP 140/82; PULSE 67; RESP 16; TEMP 37; O2SAT 97
[2024-12-06 22:00] VITALS: BP 122/64; PULSE 74; RESP 15; TEMP 37.1; O2SAT 96
[2024-12-07 04:00] VITALS: BP 129/75; PULSE 71; RESP 15; TEMP 37.1; O2SAT 98
--- NOTE | 2024-12-07 08:12 | WOUNDNOTE ---
wound photo: bilateral buttocks
[2024-12-07 09:06] VITALS: BP 105/60; PULSE 70; RESP 17; TEMP 36.6; O2SAT 94
[2024-12-07] MEDS: Juven (unflavored) Packet 1 PACKET PO (09:16)
[2024-12-07] MEDS: Ensure Plus High Protein 120 ML LIQUID PO ×2 (09:16→21:27)
[2024-12-07 13:25] LABS: CRP 120.00 mg/L (0.0-3.0)
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
[2024-12-07 14:21] VITALS: BP 123/61; PULSE 68; RESP 16; TEMP 36.6; O2SAT 97
--- NOTE | 2024-12-07 15:25 | CHAPLAIN ---
Type of Pastoral Visit _x__ Initial Visit ___ Follow-up Visit ___ On-call Visit ___ General Patient Visit ___ Spiritual Assessment ___ Family Conference ___ Bereavement ___ Rapid Response ___ Code Blue ___ Other (describe below) Pastoral Care Referral From _x__ Patient ___ Family ___ Nurse ___ Physician ___ Duct Layer Helper ___ Report Programmer ___ Other (describe below) Sacrament/Intervention _x__ Active listening ___ Anointing ___ Hindu ___ Bereavement ___ Communion ___ Alida exploration ___ _x__ Life review _x__ Prayer ___ Reconciliation ___ Sacrament of Sick _x__ Supportive presence ___ Wedding ___ Other (describe below) Pastoral Comments patient is asleep but awakens to his name; pt is able to converse briefly with this metalsmith apprentice; pt talks about his home situation and what he hopes for in the future; pt welcomes presence and prayer
--- NOTE | 2024-12-07 15:38 | RAD_ITS ---
PROCEDURE: HIPS B/L MIN 2 VIEWS W/ PELVIS 12/07/2024 REASON FOR EXAM: [facility]ICK HIP PAIN TECHNIQUE: 6 view bilateral hip series including an AP pelvis. COMPARISON: Bilateral hip and pelvis study 11/15/2024. RAD/Hips B/L min 2 views w/ Pelvis IMPRESSION: Prominent degenerative changes of the visualized lower lumbar spine again noted . Stable mild sacroiliac joint degenerative changes. Prominent arterial calcification is again noted. 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 No evidence of metallic fracture or screw loosening. No acute fracture or dislocation is seen. If clinical concern persists, short-term follow-up imaging may be obtained to r ule out a currently occult fracture. Reading Location: [place] [address]
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
[2024-12-07 17:07] LABS: Hematocrit 31.1 % (40-54); Hemoglobin 10.5 g/dL (13.0-16.5); Immature Granulocytes Count 0.070 X10^3/uL (0.0-0.0); Mean Corp Hgb Conc 33.8 g/dL (32-36); Mean Corpuscular Volume 83.6 fL (80-94); Mean Platelet Vol. 8.9 fl (6.2-12.0); NRBC Flagged by Analyzer 0 % (0-5); POSITIVE MORPHOLOGY YES; Platelet Count 343 K/mm3 (150-450); RBC Distribution Width CV 14.8 % (11.6-14.6); RBC Distribution Width SD 45.9 fl (35.1-43.9); Red Blood Count 3.72 M/mm3 (4.6-6.2); White Blood Count 11.5 K/mm3 (4.4-11.0)
[2024-12-07 17:19] LABS: Differential Indicated SCAN CRITERIA MET
[2024-12-07 18:03] LABS: Differential Comment SCANNED
[2024-12-07 18:08] LABS: AST(SGOT) 43 U/L (<=37); Alanine Aminotransfer ALT/SGPT 34 U/L (<=46); Albumin, Serum 2.2 g/dL (3.4-4.8); Alkaline Phosphatase 123 U/L (40-129); Anion Gap 11 (5-15); BUN 25 mg/dL (4-19); BUN/Creat Ratio 29.5 RATIO (10-20); Calcium,Total 8.2 mg/dL (7.6-11.0); Carbon Dioxide 22.2 mmol/L (21.0-32.0); Chloride 96 mmol/L (98-108); Estimated Creatinine Clearance 74.75 ml/min (50-250); Globulin 2.9 g/dL (2.2-4.2); Glucose 90 mg/dL (70-99); Potassium 3.8 mmol/L (3.3-5.1)
[2024-12-07 21:50] VITALS: BP 114/53; PULSE 62; RESP 16; TEMP 36.4; O2SAT 97
[2024-12-08 05:01] VITALS: BMI 27.8
[2024-12-08 05:20] VITALS: BMI 28.0
[2024-12-08 05:40] VITALS: BP 110/86; PULSE 72; RESP 16; TEMP 36.1; O2SAT 96
[2024-12-08 06:25] LABS: Hematocrit 30.3 % (40-54); Hemoglobin 10.2 g/dL (13.0-16.5); Immature Granulocytes Count 0.080 X10^3/uL (0.0-0.0); Mean Corp Hgb Conc 33.7 g/dL (32-36); Mean Corpuscular Volume 84.4 fL (80-94); Mean Platelet Vol. 8.8 fl (6.2-12.0); NRBC Flagged by Analyzer 0 % (0-5); POSITIVE DIFFERENTIAL YES; POSITIVE MORPHOLOGY YES; Platelet Count 327 K/mm3 (150-450); RBC Distribution Width CV 14.9 % (11.6-14.6); RBC Distribution Width SD 45.9 fl (35.1-43.9); Red Blood Count 3.59 M/mm3 (4.6-6.2); White Blood Count 10.6 K/mm3 (4.4-11.0)
[2024-12-08 06:33] LABS: Differential Indicated SCAN CRITERIA MET
[2024-12-08 07:10] LABS: Anion Gap 11 (5-15); BUN 21 mg/dL (4-19); BUN/Creat Ratio 31.4 RATIO (10-20); Calcium,Total 8.1 mg/dL (7.6-11.0); Carbon Dioxide 21.3 mmol/L (21.0-32.0); Chloride 96 mmol/L (98-108); Estimated Creatinine Clearance 85.02 ml/min (50-250); Glucose 82 mg/dL (70-99); Magnesium 1.8 mg/dL (1.5-2.2); Potassium 3.7 mmol/L (3.3-5.1)
[2024-12-08 07:13] LABS: Differential Comment SCANNED; Toxic Granulation 2+
[2024-12-08 08:51] VITALS: BP 111/57; PULSE 65; RESP 19; TEMP 36.6; O2SAT 98
[2024-12-08] MEDS: Potassium Phosphate 21 MM in 0.9% Normal Saline (250mL Bag) 250 ML 84 MM IV (10:02)
[2024-12-08 11:50] VITALS: BP 121/58; PULSE 66; RESP 17; TEMP 36.6; O2SAT 96
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
[2024-12-08 16:40] VITALS: BP 127/66; PULSE 74; RESP 18; TEMP 36.7; O2SAT 97
[2024-12-08 17:18] LABS: Color, Urine Yellow (Yellow); Glucose, Dipstick Normal (Normal); Ketone-Dipstick 15 mg/dl (Negative); Leukocyte Esterase-Dipstick 500 /ul (Negative); Nitrite-Dipstick Negative (Negative); Occult Blood-Urine 250 /ul (Negative); Protein-Dipstick 100 mg/dl (Negative); Specific Gravity, Urine 1.015 (1.002-1.030); Urine Bilirubin Dipstick Negative (Negative)
[2024-12-08] MEDS: Ensure Plus High Protein 120 ML LIQUID PO (21:39)
[2024-12-08 22:09] VITALS: BP 108/58; PULSE 74; RESP 16; TEMP 36.6; O2SAT 97
[2024-12-09 05:56] LABS: Hematocrit 28.8 % (40-54); Hemoglobin 9.7 g/dL (13.0-16.5); Mean Corp Hgb Conc 33.7 g/dL (32-36); Mean Corpuscular Volume 84.5 fL (80-94); Mean Platelet Vol. 9.1 fl (6.2-12.0); Platelet Count 360 K/mm3 (150-450); RBC Distribution Width CV 15.1 % (11.6-14.6); RBC Distribution Width SD 46.0 fl (35.1-43.9); Red Blood Count 3.41 M/mm3 (4.6-6.2); White Blood Count 11.1 K/mm3 (4.4-11.0)
[2024-12-09 06:00] VITALS: BMI 27.9
[2024-12-09 06:30] LABS: Anion Gap 10 (5-15); BUN 18 mg/dL (4-19); BUN/Creat Ratio 32.6 RATIO (10-20); Calcium,Total 7.7 mg/dL (7.6-11.0); Carbon Dioxide 21.7 mmol/L (21.0-32.0); Chloride 96 mmol/L (98-108); Estimated Creatinine Clearance 84.83 ml/min (50-250); Glucose 71 mg/dL (70-99); Potassium 3.8 mmol/L (3.3-5.1)
[2024-12-09 08:02] VITALS: BP 122/63; PULSE 65; RESP 18; TEMP 36.4; O2SAT 95
[2024-12-09] MEDS: Ensure Plus High Protein 120 ML LIQUID PO ×2 (08:35→13:20)
[2024-12-09] MEDS: Sodium Phosphate/Na Biphos 21 MMOL in 0.9% Normal Saline (250mL Bag) 250 ML 84 MMOL IV (08:35)
[2024-12-09] MEDS: 0.9% Saline Lock 10 ML Syringe IV (08:35)
--- NOTE | 2024-12-09 09:36 | WOUNDNOTE ---
wound photo: bilateral buttocks
--- NOTE | 2024-12-09 09:42 | CASEMGMT ---
Social Work- SW received notice from hospitalist that pt is insisting he return home with [facility]. Hospitalist will d/c today. Pt will follow up with wound center and Dr Euceda. CLAUDIA called [facility] and updated on d/c plans. CLAUDIA remains available to follow. MELANIE Bucio
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
--- NOTE | 2024-12-09 12:47 | CASEMGMT ---
Addendum entered by Rebecca Spears 12/09/24 16:09: TC to Haily Haynes, she states she is aware of hospital bed being delivered today. She is also made aware that the TITLE INSURANCE AGENT will be calling tomorrow to set up a telehealth appt for pt. She is aware that if they do not reach the patient, they will call her and if contact needs to be made prior to HH starting. She is aware pt vm is full and HH requested it be freed up to leave a vm should they not be able to reach pt. She verbalized understanding. She is also aware that [facility] has not arrived yet to pick pt up as it was scheduled at 4pm. She states they will be ready for pt when he arrives home. Addendum entered by Rebecca Spears 12/09/24 16:02: Received confirmation from Faizan roy [facility] that pt will have hospital bed delivered today. He states that he has already spoken to pt cg as pt did not answer his phone and he was unable to leave him a message. Addendum entered by Rebecca Spears 12/09/24 14:57: Received tc back from Elke roy [facility], she states pt did not answer his phone twice and his vm is full. JAI PERES into pt room, placed Elke on speakerphone. She spoke with pt. She discussed with pt that he will be receiving a call tomorrow for a telehealth visit. She requests pt vm be emptied so he can be left a message if needed. She states if pt does not answer, pt will receive a text if he cannot be reached. Pt states he can receive texts. Pt is aware that if he does not answer this call and have a telehealth visit, HHC can not start. Pt did verbalize understanding of this. Addendum entered by Rebecca Spears 12/09/24 14:53: Received tc from Elke roy [facility] who states that she would like to make a bedside visit with pt. She is aware that pt is set up at 4pm for transport home. She states she will call pt to confirm he is agreeable to telehealth doctor. She is aware to call this JAI PERES back if she cannot reach pt. Addendum entered by Rebecca Spears 12/09/24 14:34: Pt accepted by [facility] for [facility]. They will reach out to pt to schedule within 24-48 hours. Referral sent to [facility] via [facility] for hospital bed. Addendum entered by Rebecca Spears 12/09/24 14:16: SW notified that pt is agreeable to referral for C be sent to [facility] as he does not have a PCP appt set up as previously thought. [facility] can accept pts without a PCP. [facility] Original Note: JAI PERES made aware that pt is dc'ing home. Pt is in need of a hospital bed. JAI PERES into pt room, pt sitting up in bed. Pt states he would like a hospital bed. Provided pt with a local verbal in network list of DME companies. Pt states [place] after asked which he prefers. Pt made aware that there is not a DME company in [place] to provide this. Provided pt with choices again and pt states he has no preference. Hospitalist aware of need for bed and documentation needed.
--- NOTE | 2024-12-09 13:13 | CASEMGMT ---
Addendum entered by Liliya Walter 12/09/24 17:00: NIDIA Umana called and left voicemail regarding d/c. MELANIE Bucio Addendum entered by Liliya Walter 12/09/24 16:20: Social Work- Hospital bed to be delivered today. Pt caregiver updated. MELANIE Bucio Addendum entered by Liliya Walter 12/09/24 14:47: [facility] Hospital[facility] notified. Pt and caregiver notified and agreeable. Pt caregiver reports that she will be home by 4-4:30 to receive pt. RNCM working on hospital bed through [employer]. CLAUDIA remains available to follow. MELANIE Bucio Original Note: Social Work- SW called Haily, pt caregiver, to update on d/c plans. Haily reports that she is at [employer] getting tags on car and needs transport arranged for pt. Haily questioned hospital bed delivery. CLAUDIA informed that RNCM is working on arrangements for bed. CLAUDIA provided information on [facility] start date and appointments on discharge. Haily reports 3:30 is earliest she will be home to receive pt. CLAUDIA called [facility] and arranged 4:ooPM picker and sorter load and unload. Transportation form copied and copy placed on chart. CLAUDIA called Dr Rodriguez office to confirm appointment. There is no appointment scheduled for pt. CLAUDIA coordinated with [facility] who can no longer accept pt referral due to lack of PCP. CLAUDIA coordinated with hospitalist and RNCM. CLAUDIA followed up with pt; pt agreeable to referral to [facility]. If [facility] cannot accept, pt will need to consider SNF for safety due to wound care, felix, and therapy needs. CLAUDIA remains available to follow. MELANIE Bucio
[2024-12-09 13:47] VITALS: BP 125/72; PULSE 73; RESP 16; TEMP 36.6; O2SAT 96
--- NOTE | 2024-12-09 15:13 | PHA.DC.MC.R ---
Pharmacy [facility] Counseling Pharmacy Service has performed discharge medication reconciliation and counseling for this patient. 1. MIDODRINE 5MG PO TIDCM 2. PANTOPRAZOLE 40MG PO BID 3. SODIUM CHLORIDE 1GM PO TID 4. SUCRALFATE 1GM PO 1HR_ACHS 5. TAMSULOSIN 0.8MG PO DAILY 6. STOP NAPROXEN AND WILLOW BARK The patient's discharge medication list was reviewed for discrepancies and discrepancies were resolved. The patient was counseled on the following discharge medications and changes in medications for homegoing were reviewed. The Reason for Use, instructions for use, and potential side effects were reviewed for all new medications. The patient's questions regarding all of their medications were answered. The patient demonstrated some understanding but would benefit from further education and reinforcement. Medications at Discharge Home Medications midodrine 5 mg tablet 5 mg PO TIDCM #90 tabs 12/09/24 pantoprazole 40 mg tablet,delayed release 40 mg PO BID #60 tabs 12/09/24 sodium chloride 1,000 mg soluble tablet 1,000 mg PO TID #90 tabs 12/09/24 sucralfate 1 gram tablet 1 g PO 1HR_ACHS #120 tabs 12/09/24 tamsulosin 0.4 mg capsule 0.8 mg (2 x 0.4 mg) PO DAILY@1730 #60 caps 12/09/24
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
--- NOTE | 2024-12-09 18:09 | CM.ED ---
Social Work SW contacted patients HPOA/ caregiver to see what assistance could be provided for patient to get his medications. Caregiver stated that patients nephew was going to cover the co-pay on the medications so they can be picked up. Caregiver thanked CLAUDIA for the call, no further needs at this time . Racquel Yoon, SALES PROCESS MANAGER, SOCIAL SECURITY SPECIALIST
--- NOTE | 2024-12-10 10:52 | CASEMGMT ---
TC with pt cg, Haily Haynes with SW. See SW note. TC to [facility] to make aware that pt did not have transportation for appt today. Spoke with Hui, who states she will ask the receptionist clerk to reach out to pt cg Haily Haynes to reschedule.
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
== END 2024-12-09 17:52 | disposition home health service (06) | DRG 381 ==
LOC: ED 14:59 → SDC 15:10 → ACINP 15:10 → SDC 17:13 → ICU 12-05 07:22 → MS3 12-05 12:24
PROVIDERS: Internal Medicine; Admitting Provider Internal Medicine Gastroenterology; Emergency Provider Emergency Medicine; PCP Family Medicine; Visit Provider Internal Medicine
PROC: 0DJ08ZZ Inspection of Upper Intestinal Tract, Via Natural or Artificial Opening Endoscopic (ICD-10-PCS; CPT 43235; principal; 2024-12-04 16:00)
DX: K22.11 Ulcer of esophagus with bleeding (principal); E87.1 Hypo-osmolality and hyponatremia; I50.30 Unspecified diastolic (congestive) heart failure; E83.39 Other disorders of phosphorus metabolism; Z66 Do not resuscitate; L89.319 Pressure ulcer of right buttock, unspecified stage; L89.329 Pressure ulcer of left buttock, unspecified stage; K22.6 Gastro-esophageal laceration-hemorrhage syndrome; I35.0 Nonrheumatic aortic (valve) stenosis; D64.9 Anemia, unspecified; I11.0 Hypertensive heart disease with heart failure; M19.90 Unspecified osteoarthritis, unspecified site; M25.551 Pain in right hip; D72.829 Elevated white blood cell count, unspecified; K57.30 Diverticulosis of large intestine without perforation or abscess without bleeding; M25.552 Pain in left hip; Z87.891 Personal history of nicotine dependence; R53.81 Other malaise; Z79.899 Other long term (current) drug therapy; Z79.891 Long term (current) use of opiate analgesic; R33.9 Retention of urine, unspecified; Z96.643 Presence of artificial hip joint, bilateral
CPT/HCPCS: 36415; 73521; 74174; 80048; 80053; 81001; 81002; 82274; 82962; 83735; 84100; 85014; 85018; 85025; 85027; 85652; 86140; 86850; 86900; 86901; 87086; 92610; 93005; 97161; 97165; 97166; 97802; 99284; C1889; P9016; Q9967; A4216; J2405